=== PATIENT | female | born 1960 | race Caucasian/White ===

== ENCOUNTER 2020-02-15 12:40 | Emergency (ER) | payer OTHER ==
--- OUTSIDE RECORDS SUMMARY | 2020-02-15 12:44 | XMS REPORT | Clinical Summary ---
:1960 Author Organization [facility] Address [address] [place] [address] Care Team Providers Name Role Phone MD Andreina Primary Care Provider Allergies Active Allergy Reactions Severity Noted Date Comments No Known Drug Allergies Other (See Comments) 6 Medications Medication Sig Dispensed Refills Start Date End Date Status multivitamin with Take 1 tablet by 0 Active minerals tablet mouth daily. cholecalciferol, Take 1,000 Units 0 Active vitamin D3, (VITAMIN by mouth once a D3) 1,000 unit capsule week. predniSONE (DELTASONE) Take 10 mg by 1 09/13/2017 Active 10 mg tablet mouth every morning. leflunomide (ARAVA) 10 Take 10 mg by 0 Active MG tablet mouth every morning. omeprazole (PriLOSEC) Take 20 mg by 0 Active 20 MG capsule mouth daily. losartan (COZAAR) 50 MG TAKE 1 TABLET BY 30 tablet 3 8 Active tablet MOUTH 1 TIME DAILY. Additional Information Patient taking differently: daily, TAKE 1 TABLET BY MOUTH 1 TIME DAILY., Reported on 01/14/2020 2:06 PM hydroCHLOROthiazide (HYDRODIURIL) TAKE 1 TABLET BY 30 tablet 3 10/02/2018 Active 25 MG tablet MOUTH EVERY DAY Additional Information Patient taking differently: 25 mg oral every morning, Informant: Self, Reported on 12/07/2019 3:48 PM abaloparatide (TYMLOS) 80 mcg every evening. 0 05/22 Active (3,120 mcg/1.56 mL) pen injector DULoxetine (CYMBALTA) 60 MG TAKE 1 CAPSULE BY MOUTH 30 capsule 3 11/28/2018 Active capsule EVERY DAY Additional Information Patient taking differently: 60 mg oral daily, TAKE 1 CAPSULE BY MOUTH EVERY DAY, Informant: Self, Reported on 01/14/2020 2:06 PM inFLIXimab (REMICADE) Infuse into a 0 Active 100 mg injection venous catheter every 30 (thirty) days. magnesium citrate 0 02/14/ tive solution 8.725 gm = 150 ml, PO, ONCE, # 300 ml, 0 Refill(s) 2015 losartan (COZAAR) 100 MG Take 100 mg by 0 03/26/ Active tablet mouth daily. 2018 mirtazapine (REMERON) Take 7.5 mg by 0 03/26/ Active 7.5 MG tablet mouth nightly. 2019 clonAZEPAM (KlonoPIN) Take 0.5 mg by 0 Active 0.5 MG tablet mouth nightly as needed for anxiety or seizures. atenoloL (TENORMIN) 50 Take 50 mg by 0 Active MG tablet mouth daily. oxyCODone-acetaminophen Take 1 tablet by 90 tablet 0 01/13/ Active (PERCOCET) 10-325 mg per mouth every 2019 tabletIndications: (six) hours as chronic pain needed for moderate pain for up to 30 days .chronic pain. Max Daily Amount: 4 tablets pregabalin (LYRICA) 100 Take 1 capsule 90 capsule 2 01/13/ 04/13/ Active MG capsule (100 mg total) by 2019 2019 mouth 3 (three) times a day for 90 days. acetaminophen (TYLENOL) Take 500 mg by 0 0 12/19/ Discontinued 500 MG tablet mouth every 2019 (S top Taking at (six) hours as Disch arge) needed for mild pain. diphenhydramine-acetamin 2 tablets nightly 0 12/19/ Discontinued ophen (TYLENOL PM EXTRA as needed. 2019 (Stop Taking at STRENGTH) 25-500 mg Discharge) tablet promethazine (PHENERGAN) TK 1 T PO Q 6 H 0 11/07/ 03/24/ Discontinued 12.5 MG tablet PRF NAUSEA 2018 2018 hydroxychloroquine 0 11/04/ /12/ D iscontinued (PLAQUENIL) 200 mg 2018 2019 ( Stop Taking at tablet Discharge) HYDROcodone-acetaminophe Take 1 tablet by 120 tablet 0 11/24/ 02/22/ Discontinued (Med n (NORCO) 5-325 mg per mouth every 6 2018 201 9 List Cleanup) tablet (six) hours as needed for moderate pain for up to 90 days. pregabalin (LYRICA) 100 Take 1 capsule 90 capsule 2 12/03/ 03/02/ Discontinued MG capsule (100 mg total) by 2018 2018 ( Reorder) mouth 3 (three) times a day for 90 days. pregabalin (LYRICA) 100 Take 1 capsule 90 capsule 0 03/02/ 03/03/ Discontinued MG capsule (100 mg total) by 2018 2018 ( Reorder) mouth 3 (three) times a day for 30 days. pregabalin (LYRICA) 100 TAKE 1 CAPSULE BY 90 capsule 2 03/03/ 03/09/ Discontinued MG capsule MOUTH THREE TIMES 2018 2018 ( Reorder) DAILY mirtazapine (REMERON) 15 Take 15 mg by 0 02/26/ 0 12/06/ Discontinued MG tablet mouth nightly. 2018 2019 (Alte rnate therapy) HYDROcodone-acetaminophe Take 1 tablet by 0 03/09/ Discontinued n (NORCO) 5-325 mg per mouth 4 (four) (Reorder) tabletIndications: acute times a day .Acute pain Pain. HYDROcodone-acetaminophe Take 1 tablet by 120 tablet 0 03/09/ 04/12/ Discontinued n (NORCO) 5-325 mg per mouth 4 (four) 2018 (Stop Taking at tabletIndications: acute times a day for 90 Discharge) pain, chronic pain days .Acute Pain, chronic pain. Max Daily Amount: 4 tablets pregabalin (LYRICA) 100 Take 1 capsule 270 capsule 3 03/09/ 06/23/ Discontinued MG capsule (100 mg total) by 2018 2019 mouth 3 (three) times a day. naltrexone HCl Take by mouth 0 12/06/ D iscontinued (NALTREXONE ORAL) daily as needed. 2019 (Discontinued by another clinician) methocarbamol (ROBAXIN) Take 1 tablet (500 120 tablet 0 04/12/ 05/12/ 500 MG tablet mg total) by mouth 2018 2018 4 (four) times a day for 30 days. predniSONE (DELTASONE) Take 3 tablets (30 12 tablet 0 04/13/ 04/19/ 10 mg tablet mg total) by mouth 2018 2018 See Admin Instructions for 6 days. 3 tabs daily x 2 days, then 2 tabs daily x 2 days, then 1 tab daily docusate sodium (COLACE) 0 02/14/ 12/06 / Discontinued 100 MG capsule 100 mg = 1 cap, PO, BID, PRN Constipatio n, # 60 cap, 0 Refill(s) 2015 2019 (Therapy completed) HYDROcodone-acetaminophe 0 08/14/ 12/06 / Discontinued n (NORCO) 10-325 mg per 1 tab, PO, Q6H, 0 Refill(s) 2016 2019 (Therapy tablet completed) oxyCODone-acetaminophen TK ONE T PO Q 4 TO 0 12/06/ Discontinued (PERCOCET) 10-325 mg per 6 H PRN P 2018 2019 (Surgery) tablet gabapentin (NEURONTIN) Take 1 capsule 60 capsule 0 05/18/ 12/06/ Discontinued 300 mg capsule (300 mg total) by 2018 2019 mouth 2 (two) times a day. methocarbamol (ROBAXIN) Take 1 tablet (500 30 tablet 1 06/25/ 500 MG tablet mg total) by mouth 2018 2019 3 (three) times a day for 30 days. pregabalin (LYRICA) 100 TAKE 1 TABLET BY 90 capsule 2 10/04/ Discontinued MG capsule MOUTH THREE TIMES 2019 2019 DAILY traMADoL (ULTRAM) 50 mg Take 1 tablet (50 30 tablet 0 09/01/ tabletIndications: acute mg total) by mouth 2019 2019 pain every 8 (eight) hours as needed for moderate pain for up to 30 days .acute pain. pregabalin (LYRICA) 100 TAKE 1 CAPSULE BY 90 capsule 1 10/04/ 12/19/ Discontinued MG capsule MOUTH THREE TIMES 2019 2019 DAILY pregabalin (LYRICA) 100 Take 1 capsule 90 capsule 0 12/19/ 01/13/ Discontinued MG capsule (100 mg total) by 2019 2019 ( Reorder) mouth 3 (three) times a day for 30 days. methocarbamoL (ROBAXIN) Take 1 tablet (500 56 tablet 0 12/27/ Discontinued 500 MG tablet mg total) by mouth 2019 2019 (Reorder) 4 (four) times a day for 14 days. sennosides-docusate Take 2 tablets by 56 tablet 0 12/19/ / sodium (Senna with mouth 2 (two) 2019 2019 Docusate Sodium) 8.6-50 times a day for 14 mg per tablet days. oxyCODone-acetaminophen Take 1 tablet by 120 tablet 0 12/27/ // Discontinued (PERCOCET) 10-325 mg per mouth every 2019 2 020 (Reorder) tabletIndications: (four) hours as chronic pain needed for moderate pain for up to 30 days .chronic pain. methocarbamoL (ROBAXIN) Take 1 tablet (500 56 tablet 0 12/27/ 01/10/ 500 MG tablet mg total) by mouth 2019 2019 4 (four) times a day for 14 days. methocarbamoL (Robaxin) Take 1 tablet (500 120 tablet 0 01/13/ // 500 MG tablet mg total) by mouth 2019 2019 4 (four) times a day for 30 days. Active Problems Problem Noted Date Kyphosis 11/18/2019 Overview: Added automatically from request for inez crow [id number] Scoliosis 04/08/2019 Long-term current use of opiate analgesic 03/09/2019 Lumbar radicular pain 03/09/2019 Lumbar disc disease 03/09/2019 Back pain 11/24/2018 Myositis 11/24/2018 Multiple rib fractures 09/19/2016 Right knee pain 01/03/2016 Chronic pain syndrome 11/28/2015 Sjogren's syndrome 11/28/2015 Pain of upper abdomen 11/28/2015 Alcohol abuse 11/28/2015 Overview: She is drinking to self medicate and sleep Anemia 07/21/2015 Aneurysm of splenic artery 07/21/2015 Ankylosing spondylitis of multiple sites in spine 07/11 Anxiety disorder 07/21/2015 Overactive bladder 07/21/2015 Depression 07/21/2015 Overview: Depressive disorder - well controlled on cymbalta Endometriosis 07/21/2015 Essential hypertension 07/21/2015 Gastroesophageal reflux disease 07/21/2015 History of colitis 07/21/2015 Overview: History of colitis - related to Ankylosing Spondylitits Insomnia 07/21/2015 Non morbid obesity due to excess calories 07/21/2015 Overview: Obesity - 320 ils prior to gastric bypass Osteoarthritis 07/21/2015 Rheumatoid arthritis 07/21/2015 Encounters Date Type Specialty Care Team Description 01/14/2020 Telemedicine Physical Medicine [place], Ankylosing spondylitis of multiple sites in spine (HCC) (Primary Dx); and Rehabilitation Austin Saleh, Lumbar ra dicular pain; Rheumatoid arth ritis involving multiple sites, unspecified rheumatoid factor presence (HCC); Lumbar disc dis ease; Sjogren's syndr ome, with unspecified organ involvement (HCC); Back pain, unsp ecified back location, unspecified back pain laterality, unspecified chronicity 01/11/2020 Office Visit Orthopedic Surgery Tariq, Fusion of spine, Alphonso Lorenz unspecified spi nal region (Primary Dx) 01/11/2020 Travel 01/07/2020 Travel 12/28/2019 Telemedicine Physical Medicine [place], Lumbar dis c disease (Primary Dx); and Rehabilitation Austin Saleh, Chronic p ain syndrome; Lumbar radicula r pain; Rheumatoid arth ritis involving vertebra, unspecified rheumatoid factor presence (HCC); Sjogren's syndr ome, with unspecified organ involvement (HCC); Postural kyphos is, unspecified spinal region; Back pain, unsp ecified back location, unspecified back pain laterality, unspecified chronicity; Ankylosing spon dylitis of multiple sites in spine (HCC) 12/28/2019 Travel 12/28/2019 Orders Only Orthopedic Surgery Joshua Connors MA 12/21/2019 Telephone Cardiovascular Nidhi Lau RN 12/16/2019 Surgery General Surgery Mally Potter Po sterior Alphonso Lorenz Spinal Instrume ntation from T3-T11, SSEP/MOTORS 12/16/2019 Anesthesia Event General Surgery Carlos Grubbs MD [place], Stacy Joan, NP 12/16/2019 Hospital Encounter Neurology Tariq, Spondylol isthesis at Alphonso S. L4-L5 level 12/16/2019 Hospital Encounter Orthopedic Surgery Shahzad Potter hosis, unspecified kyphosis type, unspecified spinal region; - Alphonso SJeff Scoliosis, unsp ecified scoliosis type, unspecified spinal region 12/20/2019 12/14/2019 Lab Lab Doyle, Sagittal plane PROSPER Johns imbalance Alphonso Potter 12/14/2019 Travel 12/07/2019 Pre-Admit Testing Pre-Admission Leonidas Potter (Primary Appointment Testing Alphonso SJeff Dx) 12/07/2019 Office Visit Orthopedic Surgery Potter, Fusion of spine, unspecified spinal region (Primary Dx); Alphonso S. Other secondary kyphosis, thoracolumbar region Nat Kwon PA-C 12/07/2019 Orders Only Orthopedic Surgery Doyle, Sagittal plane PROSPER Johns imbalance (Prim vito Dx) 12/07/2019 Travel 11/23/2019 Orders Only Orthopedic Surgery Radha [place], Aneurys m of splenic artery (HCC) (Primary Dx); MA Spondylolisthes is at L4-L5 level 11/23/2019 Orders Only Orthopedic Surgery Radha [place], Spondyl olisthesis at MA L4-L5 level (Pr imary Dx) 11/18/2019 Travel 11/18/2019 Orders Only Orthopedic Surgery Joshua Connors, Kyphosis , unspecified kyphosis type, unspecified spinal region (Primary Dx); MA Scoliosis, unsp ecified scoliosis type, unspecified spinal region 11/17/2019 Travel 11/09/2019 Office Visit Orthopedic Surgery Potter, Spondylol isthesis at Alphonso S. L4-L5 level (Pr imary Dx) 11/09/2019 Travel 11/05/2019 Orders Only Cardiovascular [place], Varicose vein s of both KELSEY Terrell lower extremiti es with complications ( Primary Dx) 11/03/2019 Telephone Cardiovascular Nidhi Lau RN 10/05/2019 Refill Physical Medicine [place], and Rehabilitation Austin Saleh MD 08/03/2019 Office Visit Orthopedic Surgery Tariq, Back pain , unspecified Alphonso S. back location, unspecified jacquelin k pain laterality, unspecified chr onicity (Primary Dx) 06/23/2019 Refill Physical Medicine [place], and Rehabilitation Austin Saleh MD 06/16/2019 Refill Orthopedic Surgery Nat Kwon PA-C 05/26/2019 Orders Only Orthopedic Surgery Joshua Connors MA 05/18/2019 Orders Only Orthopedic Surgery Joshua Connors MA 04/30/2019 Office Visit Orthopedic Surgery Potter, Scoliosis (and Alphonso S. kyphoscoliosis) , idiopathic (Silvia opal Dx) 04/13/2019 Orders Only Orthopedic Surgery Nat Kwon PA-C 04/12/2019 Documentation Medical Records Provider, Unknown 04/08/2019 Anesthesia Event General Surgery Hiwot Saucedo MD Felan, Veronica Holly, ANABELL 04/08/2019 Surgery General Surgery Tariq, [id number] CAMILA Alphonso Lorenz POSTERIOR SPINA L INSTRUMENTATION AND FUSION W/ LAMINECTOMIES L 2-S1 LAMINECTOMIES W / SSEP W/ MOTORS 04/08/2019 Hospital Encounter Transplant Tariq, Scoliosis , unspecified - Alphonso Lorenz scoliosis type, 04/12/2019 unspecified spi nal region 03/30/2019 Office Visit Orthopedic Surgery Tariq, Scoliosis (and kyphoscoliosis), idiopathic (Primary Dx); Alphonso Lorenz Spondylolisthesis at L4-L5 level; Doyle, Radiculopathy o f lumbar region PROSPER Johns 03/24/2019 Pre-Admit Testing Pre-Admission Tariq, Preop exa mination Appointment Testing Alphonso Lorenz (Primary Dx) 03/23/2019 Refill Internal Medicine Mary Lyon MD 03/19/2019 Orders Only Orthopedic Surgery [place]ha [place], Scolios is, unspecified MA scoliosis type, unspecified spi nal region (Primary Dx) 03/09/2019 Office Visit Physical Medicine [place], Long-term current use of opiate analgesic (Primary Dx); and Rehabilitation Austin Saleh, Back pain , unspecified back location, unspecified back pain laterality, unspecified chronicity; Other myositis of other site; Sjogren's syndr ome, with unspecified organ involvement (HCC); Rheumatoid arth ritis involving vertebra, unspecified rheumatoid factor presence (HCC); Ankylosing spon dylitis of multiple sites in spine (HCC); Chronic pain sy ndrome; Lumbar radicula r pain; Lumbar disc dis ease 03/06/2019 Documentation Orthopedic Surgery PotterAlphonso goodrich 03/03/2019 Refill Physical Medicine [place], and Rehabilitation Austin Saleh MD 03/02/2019 Refill Physical Medicine [place], and Rehabilitation KIRA Toth 02/16/2019 Office Visit Orthopedic Surgery Potter, Back pain , unspecified Alphonso Lorenz back location, unspecified jacquelin k pain laterality, unspecified chr onicity (Primary Dx) after 2019 Immunizations Name Administration Dates Next Due FLUCELVAX QUAD PF 04/12/2019 Influenza Trivalent 04/10/2015, 04/05/2014 Pneumococcal Conjugate 13-Valent 02/15/2016 Tdap 04/05/2014 Family History Medical History Relation Name Comments Arthritis Father Hypertension Father Arthritis Mother Hypertension Mother Relation Name Status Comments Father Alive Mother Alive Social History Tobacco Use Types Packs/Day Years Used Date Never Smoker Smokeless Tobacco: Never Used Tobacco Cessation: Counseling Given: No Alcohol Use Drinks/Week oz/Week Comments Not Currently 5-7 Glasses of wine 5.0 - 7.0 5-7 per week Sex Assigned at Date Recorded Female 10/20/2018 7:28 PM CDT Job Start Date Occupation Industry Not on file Not on file Not on file Travel History Travel Start Travel End No recent travel history available. Last Filed Vital Signs Vital Sign Reading Time Taken Comments Blood Pressure 130/81 12/20/2019 11:28 AM CDT Pulse 85 12/20/2019 11:28 AM CDT Temperature 36.6 C (97.8 F) 12/20/2019 11:28 AM CDT Respiratory Rate 15 12/20/2019 11:28 AM CDT Oxygen Saturation 100% 12/20/2019 11:28 AM CDT Inhaled Oxygen Concentration - - Weight 79.6 kg (175 lb 8 oz) 12/16/2019 6:32 AM CDT Height 172.7 cm (5' 8") 12/16/2019 6:32 AM CDT Body Mass Index 26.68 12/16/2019 6:32 AM CDT Plan of Treatment Date Type Specialty Care Team Description 02/22/2020 Telemedicine Physical Medicine and [place] , Rehabilitation [address] [place], [place] [address] [phone] 02/25/2020 Office Visit Orthopedic Surgery Kadie Potter [address] [place], [place] [address] [phone] Health Maintenance Due Date Last Done Comments CERVICAL CANCER SCREENING 02/13/1981 SHINGLES VACCINES (#1) 02/13/2010 BREAST CANCER SCREENING 04/16/2016 04/16/2014 INFLUENZA VACCINE 03/10/2020 04/12/2019, 04/10/2015, 2013 COLONOSCOPY SCREENING 12/08/2022 12/08/2012 Implants Implanted Type Area Jd Edwards Device Shelf Model / Serial / Identifier Expiration Lot Date Kit Bone Graft Infuse Large Ii - [id number] Human Tissue N/A: M EDTRONIC SPINAL 10/08/2020 [id number] / Implanted: Qty: 1 on 04/08/[address] Alphonso Potter [address] [facility] Implants N/A AND BIOLOGICS / [id number] Chip Canc Allograft Leader Frzdri 30cc 1.7-10mm - [id number] - [id number] Human Tissue N/A: MUSCULOSKELETAL 02/05/2022 [id number] / Implanted: Qty: 1 on 04/08/[address] Alphonso Potter at [facility] Implants N/A TRANSPLANT [id number] / FOUNDATION LOT NA Chip Canc Allograft Leader Frzdri 30cc 1.7-10mm - [id number] - [id number] Human Tissue N/A: MUSCULOSKELETAL 02/12/2022 [id number] / Implanted: Qty: 1 on 04/08/[address] Alphonso Potter at [facility] Implants N/A TRANSPLANT [id number] / FOUNDATION LOT NA Kit Bone Graft Medium Infuse - [id number] Human Tissue N/A: MED TRONIC SPINAL 02/07/2021 [id number] / Implanted: Qty: 1 on 12/16/2019 by Alphonso Potter at [facility] Implants N/A AND BIOLOGICS / [id number] Chip Canc Allograft Leader Frzdri 30cc 1.7-10mm - [id number] - [id number] Human Tissue N/A: MUSCULOSKELETAL 04/25/2022 [id number] / Implanted: Qty: 1 on 12/16/2019 by Alphonso Potter at [facility] Implants N/A TRANSPLANT [id number] / FOUNDATION LOT N/A Chip Canc Allograft Leader Frzdri 30cc 1.7-10mm - [id number] - [id number] Human Tissue N/A: MUSCULOSKELETAL 04/25/2022 [id number] / Implanted: Qty: 1 on 12/16/2019 [address] Alphonso Potter at [facility] Implants N/A TRANSPLANT [id number] / FOUNDATION LOT N/A Reline-O Screw 6.0x45 - [id number] IPM IMPLANT N/A: NUVASIVE SPIN E [id number] / Implanted: 04/08/[address] [facility] (Quantity not on file) DEVICES N/A / LOT NA Screw Reline Poly 2s 6.5x45 - [id number] [id number] IMPLANT N/A: NUVASIV E SPINE [id number] / Implanted: 04/08/[address] [facility] (Quantity not on file) DEVICES N/A / Screw Reline Poly 2s 7.5x40 - [id number] IPM IMPLANT N/A: NUVASIV E SPINE [id number] / Implanted: 04/08/[address] [facility] (Quantity not on file) DEVICES N/A / Screw Reline Poly 2s 7.5x50 - [id number] IPM IMPLANT N/A: NUVASIV E SPINE [id number] / Implanted: 04/08/[address] [facility] (Quantity not on file) DEVICES N/A / Screw Reline Iliac 2s 7.5x70 - [id number] IPM IMPLANT N/A: NUVASI VE SPINE [id number] / Implanted: 04/08/[address] [facility] (Quantity not on file) DEVICES N/A / Screw Reline Poly 2s 6.5x50 - [id number] IPM IMPLANT N/A: NUVASIV E SPINE [id number] / Implanted: 04/08/[address] [facility] (Quantity not on file) DEVICES N/A / Conn Reline Oh M 5/5.5 - [id number] [id number] IMPLANT N/A: NUVASIVE SPI NE [id number] / Implanted: 04/08/[address] [facility] (Quantity not on file) DEVICES N/A / LOT NA Reline Open Lock Screw - [id number] [id number] IMPLANT N/A: NUVASIVE SPI NE [id number] / Implanted: 04/08/[address] [facility] (Quantity not on file) DEVICES N/A / Reline-O Screw 6.0x45 - [id number] IPM IMPLANT N/A: NUVASIVE SPIN E [id number] / Implanted: Qty: 1 on 04/08/2019 by Alphonso Potter at [facility] DEVICES N/A / LOT NA Screw Reline Poly 2s 6.5x40 - [id number] IPM IMPLANT N/A: NUVASIV E SPINE [id number] / Implanted: 04/08/[address] [facility] (Quantity not on file) DEVICES N/A / Boy Reline O Ti Strt 5.5x500 - [id number] IPM IMPLANT N/A: NUVAS JANUSZ SPINE [id number] / Implanted: Qty: 2 on 04/08/2019 by Alphonso Potter at [facility] DEVICES N/A / LOT NA Reline Power - [id number] IPM IMPLANT N/A: NUVASIVE SPINE [id number] / Implanted: 12/16/[address] [facility] (Quantity not on file) DEVICES N/A / Reline-O Screw, 6.0x35mm 2s Polyaxial - [id number] IPM IMPLANT N/A: NUVASIVE SPINE 12/15/2020 [id number] / Implanted: 12/16/[address] [facility] (Quantity not on file) DEVICES N/A / LOT NA Reline-O Screw, 6.0x35mm 2s Polyaxial - [id number] IPM IMPLANT N/A: NUVASIVE SPINE 12/16/2019 [id number] / Implanted: 12/16/[address] [facility] (Quantity not on file) DEVICES N/A / LOT NA Reline-O Screw 6.0x45 - [id number] IPM IMPLANT N/A: NUVASIVE SPIN E 12/15/2020 [id number] / Implanted: 12/16/[address] [facility] (Quantity not on file) DEVICES N/A / LOT NA Screw Reline Poly 2s 5.5x30 - [id number] IPM IMPLANT N/A: NUVASI VE SPINE [id number] / Implanted: 12/16/[address] [facility] (Quantity not on file) DEVICES N/A / Screw Reline Poly 2s 5.5x35 - [id number] IPM IMPLANT N/A: NUVASI VE SPINE [id number] / Implanted: 12/16/[address] [facility] (Quantity not on file) DEVICES N/A / Screw Reline Poly 2s 5.5x40 - [id number] IPM IMPLANT N/A: NUVASI VE SPINE [id number] / Implanted: 12/16/[address] [facility] (Quantity not on file) DEVICES N/A / Screw Reline Poly 2s 5.5x45 - [id number] IPM IMPLANT N/A: NUVASI VE SPINE [id number] / Implanted: 12/16/[address] [facility] (Quantity not on file) DEVICES N/A / Conn Reline Inln 2h 5/5.5 - [id number] IPM IMPLANT N/A: NUVASIV E SPINE 12/15/2020 [id number] / Implanted: 12/16/[address] [facility] (Quantity not on file) DEVICES N/A / LOT NA Reline Open Lock Screw - [id number] IPM IMPLANT N/A: NUVASIVE SPI NE [id number] / Implanted: 12/16/[address] [facility] (Quantity not on file) DEVICES N/A / Boy Reline O Ti Strt 5.5x500 - [id number] IPM IMPLANT N/A: NUV ASIVE SPINE 12/15/2020 [id number] / Implanted: 12/16/[address] [facility] (Quantity not on file) DEVICES N/A / LOT NA 6.0 Mm X 35 Mm Screw Ortho - N/A: NUVASIVE[employer]. [id number] / Implanted: Qty: 2 on 04/08/2019 by Alphonso Potter at [facility] Spinal N/A / Implant LOT NA 6.0 Mm X 40 Mm Screw Ortho - N/A: NUVASIVE[employer] INC. [id number] / Implanted: Qty: 3 on 04/08/2019 by Alphonso Potter at [facility] Spinal N/A / Implant LOT NA Putty Dbm Dbx 1cc - [id number] Orthopedic N/A: MUSCULOSKELETAL 05/13/2019 [id number] / Implanted: 09/20/[address] [facility] (Quantity not on file) Tra davion N/A TRANSPLANT [id number] / Implants FOUNDATION [id number] 11cm Sonopet Iq Lawrence [employer] N/A: 06/2020 [id number] / Implanted: Qty: 1 on 04/08/2019 by Alphonso Potter at [facility] Implements N/A / [id number] Closed Tulip Lock Screw Poste NUVASIVE SPINE [id number] / Implanted: Qty: 4 on 12/16/2019 by Alphonso Potter at [facility] rior: / N/A Procedures Procedure Name Priority Date/Time Associated Diagnosis Comme nts XR SPINE SCOLIOSIS Routine 01/11/2020 2:56 Fusion of spine, R esults for 2-3 VIEWS PM CDT unspecified spinal this proc edure region are in the results section. HC COMPLETE BLD COUNT Routine 12/20/2019 4:50 Re sults for W/AUTO DIFF AM CDT this procedure are in the results section. HC COMPLETE BLD COUNT Routine 12/19/2019 8:47 Re sults for W/AUTO DIFF AM CDT this procedure are in the results section. XR CHEST 1 VW STAT 12/18/2019 6:20 Results fo r PORTABLE PM CDT this procedure are in the results section. CBC HEMOGRAM Routine 12/18/2019 4:37 Results for AM CDT this procedure are in the results section. CBC HEMOGRAM Routine 12/17/2019 3:35 Results for AM CDT this procedure are in the results section. INTRAOPERATIVE Routine 12/16/2019 2:37 Spondylolisthesis at MONITORING PM CDT L4-L5 level SURGICAL PATHOLOGY Routine 12/16/2019 1:15 Resul ts for REQUEST PM CDT this procedure are in the results section. OR FL > 1 HOUR Routine 12/16/2019 11:45 Results f or AM CDT this procedure are in the results section. TRANSFUSE RED BLOOD Routine 12/16/2019 11:03 CELLS AM CDT ARTERIAL LINE Routine 12/16/2019 10:46 Results fo r AM CDT this procedure are in the results section. POTASSIUM, SYRINGE STAT 12/16/2019 10:40 Resul ts for AM CDT this procedure are in the results section. HEMOGLOBIN, SYRINGE STAT 12/16/2019 10:40 Resu lts for AM CDT this procedure are in the results section. LACTIC ACID, SYRINGE STAT 12/16/2019 10:05 Res ults for AM CDT this procedure are in the results section. IONIZED CALCIUM, STAT 12/16/2019 10:05 Results for ARTERIAL AM CDT this procedure are in the results section. MAGNESIUM LEVEL STAT 12/16/2019 10:05 Results for AM CDT this procedure are in the results section. GLUCOSE LEVEL, STAT 12/16/2019 10:05 Results f or SYRINGE AM CDT this procedure are in the results section. POTASSIUM, SYRINGE STAT 12/16/2019 10:05 Resul ts for AM CDT this procedure are in the results section. HEMOGLOBIN, SYRINGE STAT 12/16/2019 10:05 Resu lts for AM CDT this procedure are in the results section. SODIUM LEVEL, SYRINGE STAT 12/16/2019 10:05 Re sults for AM CDT this procedure are in the results section. ARTERIAL BLOOD GAS, STAT 12/16/2019 10:05 Resu lts for CORRECTED AM CDT this procedure are in the results section. KS AN ELECTIVE Routine 12/16/2019 8:55 Results f or ENDOTRACHEAL AIRWAY AM CDT this pro cedure are in the results section. FUSION, SPINE, 12/16/2019 7:56 Kyphosis, unspecified THORACIC, USING AM CDT kyphosis type, POSTERIOR TECHNIQUE unspecified spinal region Scoliosis, unspecified scoliosis type, unspecified spinal region Case Notes EST 5HRS, O-ARM, S8, NAVIGAT ED DRILL, SSEP/MOTORS, ALEX OSI "OLD STYLE" Special Needs EST 5HRS, PRONE POSITION, O- Arm, S8, Navigated Drill; SSEP / Motors; Cell Saver; [place]; T&C 4 units; Med Hemov ac; Alex OSI "Old Style, "60 Allo.Can.Gran; BMP; Existing Instrumentation T11 -S1/pelvis: Nuvasive Reline COVID-19 QUALITATIVE Routine 12/14/2019 1:53 Sagittal plane i mbalance Results for PCR PM CDT this procedure are in the results section. PREPARE RBC Routine 12/07/2019 4:16 Results for PM CDT this procedure are in the results section. TYPE AND SCREEN Routine 12/07/2019 4:16 Preop testing Results for PM CDT this procedure are in the results section. XR SPINE SCOLIOSIS Routine 11/09/2019 1:18 Spondylolisthesis at Results for 2-3 VIEWS PM CDT L4-L5 level this procedure are in the results section. XR SPINE SCOLIOSIS Routine 08/03/2019 1:47 Back pain, unspeci fied Results for 2-3 VIEWS PM HOSPITAL AIDE back location, this procedur e unspecified back pain are in the laterality, unspecified resu lts chronicity section. XR SPINE SCOLIOSIS Routine 04/30/2019 2:05 Scoliosis (and Res ults for 2-3 VIEWS PM HOSPITAL AIDE kyphoscoliosis), this proced ure idiopathic are in the results section. HC COMPLETE BLD COUNT Routine 04/12/2019 5:40 Re sults for W/AUTO DIFF AM HOSPITAL AIDE this procedure are in the results section. HC COMPLETE BLD COUNT Routine 04/11/2019 9:10 Re sults for W/AUTO DIFF AM CDT this procedure are in the results section. COPPER LEVEL, SERUM Routine 04/11/2019 5:30 Resu lts for AM CDT this procedure are in the results section. ZINC LEVEL, SERUM Routine 04/11/2019 5:30 Result s for AM CDT this procedure are in the results section. VITAMIN D 25 HYDROXY Routine 04/11/2019 5:00 Res ults for LEVEL AM CDT this procedure are in the results section. IRON LEVEL Routine 04/11/2019 4:00 Results for AM CDT this procedure are in the results section. VITAMIN B12 LEVEL Routine 04/11/2019 4:00 Result s for AM CDT this procedure are in the results section. FOLATE LEVEL Routine 04/11/2019 4:00 Results for AM CDT this procedure are in the results section. CBC HEMOGRAM Routine 04/10/2019 5:00 Results for AM CDT this procedure are in the results section. CBC HEMOGRAM Routine 04/09/2019 5:30 Results for AM CDT this procedure are in the results section. INTRAOPERATIVE Routine 04/08/2019 1:27 Scoliosis, unspecified MONITORING PM CDT scoliosis type, unspecified spinal region OR [place] > 1 HOUR Routine 04/08/2019 1:00 Results f or PM CDT this procedure are in the results section. XR LUMBAR SPINE 1 VW Routine 04/08/2019 12:30 Res ults for PM CDT this procedure are in the results section. KS AN ELECTIVE Routine 04/08/2019 9:37 Results f or ENDOTRACHEAL AIRWAY AM CDT this pro cedure are in the results section. GLUCOSE LEVEL, Routine 04/08/2019 9:18 Results f or SYRINGE AM CDT this procedure are in the results section. MAGNESIUM LEVEL Routine 04/08/2019 9:18 Results for AM CDT this procedure are in the results section. LACTIC ACID, SYRINGE Routine 04/08/2019 9:18 Res ults for AM CDT this procedure are in the results section. IONIZED CALCIUM, Routine 04/08/2019 9:18 Results for ARTERIAL AM CDT this procedure are in the results section. HEMOGLOBIN, SYRINGE Routine 04/08/2019 9:18 Resu lts for AM CDT this procedure are in the results section. SODIUM LEVEL, SYRINGE Routine 04/08/2019 9:18 Re sults for AM CDT this procedure are in the results section. POTASSIUM, SYRINGE Routine 04/08/2019 9:18 Resul ts for AM CDT this procedure are in the results section. ARTERIAL BLOOD GAS, Routine 04/08/2019 9:18 Resu lts for CORRECTED AM CDT this procedure are in the results section. FUSION, SPINE, 04/08/2019 8:00 Scoliosis LUMBAR, POSTERIOR AM CDT APPROACH Case Notes EST 5 HRS, PRONE POSITION, L ARGE C-ARM, SSEP W/ MOTORS, CELL SAVER, MARKUS, MED HEMOVAC, ALEX OSI "OLD ST YLE", 60CC ALLOGRAFT CANCELLOUS GRANULES, BMP, NUVASIVE, NUVASIVE RELINE Special Needs EST 5 HRS, PRONE POSITION, L ARGE C-ARM, SSEP W/ MOTORS, CELL SAVER, MARKUS, MED HEMOVAC, ALEX OSI "OLD ST YLE", 60CC ALLOGRAFT CANCELLOUS GRANULES, BMP, NUVASIVE, NUVASIVE RELINE PAIN MANAGEMENT BASE Routine 03/27/2019 4:05 Long-term curren t Results for this PROFILE W/ PM CDT use of opiate procedure are in CONFIRMATION, URINE analgesic the resu lts section. GRAM STAIN Routine 03/24/2019 4:35 Results for this PM CDT procedure are i n the results section. URINE CULTURE Routine 03/24/2019 4:35 Results fo r this PM CDT procedure are i n the results section. URINALYSIS SCREEN AND Routine 03/24/2019 2:15 Preop examinati on Results for this MICROSCOPY, WITH REFLEX PM CDT proc edure are in TO CULTURE the results section. ECG PRE/POST OP Routine 03/24/2019 1:52 Preop examination Res ults for this PM CDT procedure are i n the results section. ESTIMATED GFR Routine 03/24/2019 1:45 Results fo r this PM CDT procedure are i n the results section. COMPREHENSIVE METABOLIC Routine 03/24/2019 1:45 Preop examina tion Results for this PANEL PM CDT procedure are i n the results section. PROTHROMBIN TIME WITH Routine 03/24/2019 1:45 Preop examinati on Results for this INR PM CDT procedure are i n the results section. PARTIAL THROMBOPLASTIN Routine 03/24/2019 1:45 Preop examinat ion Results for this TIME (PTT) PM CDT procedure are i n the results section. TYPE AND SCREEN Routine 03/24/2019 1:45 Preop examination Res ults for this PM CDT procedure are i n the results section. CBC HEMOGRAM Routine 03/24/2019 1:45 Preop examination Result s for this PM CDT procedure are i n the results section. XR SPINE SCOLIOSIS 2-3 Routine 02/16/2019 3:20 Back pain, R esults for this VIEWS PM CDT unspecified back procedure a re in location, the results unspecified back section. pain laterality, unspecified chronicity after 2019 Results XR Spine Scoliosos 2-3 Views (01/11/2020 2:56 PM CDT)Only the most recent of5 resultswithin the time period is included. Specimen Narrative Performed At This result has an attachment that is no t available. PA and lateral standing x-ray of the entire spine were done. They show LOTTIE CUNNINGHAM she now has instrumentation in place up to T3. Her k yphosis looks a lot better. It is now 25 degrees from T10-L2. Performing Organization Address City/State/Zipcode Phone Number LOTTIE CUNNINGHAM [address] [place] [address] CBC with platelet and differential (12/20/2019 4:50 AM CDT)Only the most recent of4 resultswithin the time period is included. WBC 10.11 4.50 - 11.00 [facility] k/uL HOSPITAL RBC 3.36 (L) 4.20 - 5.50 [facility] m/uL [facility] HGB 8.9 (L) 12.0 - 16.0 [facility] g/dL [facility] HCT 28.5 (L) 37.0 - 47.0 % [facility] MCV 84.8 82.0 - 100.0 [facility] MCH 26.5 (L) 27.0 - 34.0 pg [facility] MCHC 31.2 31.0 - 37.0 [facility] RDW - SD 51.9 37.0 - 55.0 fL [facility] MPV 9.8 8.8 - 13.2 fL [facility] Platelet count 223 150 - 400 k/uL [facility] Nucleated RBC 0.00 /100 WBC [facility] Neutrophils 67.3 39.0 - 69.0 % [facility] Lymphocytes 18.9 (L) 25.0 - 45.0 % [facility] Monocytes 11.1 (H) 0.0 - 10.0 % [facility] Eosinophils 1.9 0.0 - 5.0 % [facility] Basophils 0.3 0.0 - 1.0 % [facility] Immature granulocytes 0.5Comment: 0.0 - 1.0 % [facility] "Immature HOSPITAL granulocytes" (promyelocytes , myelocytes, metamyelocytes ) Specimen Blood Performing Organization Address City/[facility] Phone Number [facility] DEPARTMENT OF PATHOLOGY AND [address] [place], [place] [address] GENOMIC MEDICINE [facility] [address] [place] [address] XR Chest 1 Vw Portable (12/18/2019 6:20 PM CDT) Specimen Narrative Performed At EXAMINATION: XR CHEST 1 VW PORTABLE RADIANT CLINICAL HISTORY: low o2 COMPARISON: 09/19/2016 IMPRESSION: Lungs and pleural surfaces are clear. The heart is normal in size. Normal pulm onary vascularity. Spinal rods and cervical fusion hardware are seen. [id number] Procedure Note Hm Interface, Radiology Results Incoming - 12/18/2019 7:50 PM CDT EXAMINATION: XR CHEST 1 VW PORTABLE CLINICAL HISTORY: low o2 COMPARISON: 09/19/2016 IMPRESSION: Lungs and pleural surfaces are clear. The heart is normal in size. Normal pulm onary vascularity. Spinal rods and cervical fusion hardware are seen. [id number] Performing Organization Address [facility] Phone Number [facility] [address] [place] [address] CBC hemogram (12/18/2019 4:37 AM CDT)Only the most recent of5 resultswithin the time period is included. Pathologist Sig nature WBC 12.72 (H) 4.50 - 11.00 k/uL [facility] RBC 3.28 (L) 4.20 - 5.50 m/uL [facility] HGB 8.6 (L) 12.0 - 16.0 g/dL [facility] HCT 27.7 (L) 37.0 - 47.0 % [facility] MCV 84.5 82.0 - 100.0 fL [facility] MCH 26.2 (L) 27.0 - 34.0 pg [facility] MCHC 31.0 31.0 - 37.0 g/dL [facility] RDW - SD 51.8 37.0 - 55.0 [facility] MPV 9.9 8.8 - 13.2 [facility] Platelet count 188 150 - 400 k/uL [facility] Nucleated RBC 0.20 /100 WBC [facility] Specimen Blood Performing Organization Address City/State/Zipcode Phone Number [facility] DEPARTMENT OF PATHOLOGY AND [address] [place], [place] [address] GENOMIC MEDICINE [facility] [address] [place] [address] Intraoperative monitoring (12/16/2019 2:37 PM CDT) Narrative Performed At This result has an attachment that is no t available. Surgical pathology request (12/16/2019 1:15 PM CDT) [facility] DEPARTMENT OF PATHOLOGY AND GENOMIC MEDICINE Surgical pathology See link below [facility] DEPARTMENT OF report for PDF Lab PATHOLOGY AND Report GENOMIC MEDICINE Result status This is Final [facility] DEPARTMENT OF Report for PATHOLOGY AND [id number] GENOMIC MEDICINE Specimen Performing Organization Address City/[facility] Phone Number [facility] DEPARTMENT OF PATHOLOGY AND [address] [place], [place] [address] GENOMIC MEDICINE [place] > I Hour (12/16/2019 11:45 AM CDT)Only the most recent of2 results within the time period is included. Specimen Narrative Performed At EXAMINATION: OR FL > 1 HOUR RADIANT C-arm fluoroscopy was requested in OR. Location: [facility] OR 19 Procedure: posterior spinal fusion Start: 829 End: 1145 Fluoro Time: 3.9SEC mGy: 57.14 Tech: JV SCANS: 2 IMPRESSION: Intraoperative fluoroscopic images. Radiologist was no t present during the examination. Separate operative report will be issued by the physic lizeth performing the procedure. [id number] Procedure Note Interface, Radiology Results Incoming - 12/16/2019 9:19 PM CDT EXAMINATION: OR FL > 1 HOUR C-arm fluoroscopy was requested in OR. Location: [facility] OR 19 Procedure: posterior spinal fusion Start: 829 End: 1145 Fluoro Time: 3.9SEC mGy: 57.14 Tech: JV SCANS: 2 IMPRESSION: Intraoperative fluoroscopic images. Radi ologist was not present during the examination. Separate operative report will be issued by the physician performing the procedure. [id number] Performing Organization Address City/[facility]/Zipcode Phone Number MARISA [address] [place] [address] Transfuse RBC (12/16/2019 11:03 AM CDT)Arterial line (12/16/2019 10:46 AM CDT) Narrative Performed At Dionna Flores 12/16/2019 10:47 AM Arterial line Performed by: Dionna Flores Authorized by: Carlos Grubbs MD Patient Location: OR End Time: 12/16/2019 8:10 AM Staff: Anesthesiologist: Carlos Grubbs MD Performed by: Anesthesiologist Pre-procedure: patient identified, IV ch ecked, site and side verified, risks and benefits discussed, procedure verified, surgical consent complete, patient position confirmed, mo nitors and equipment checked, pre-op evaluation complete and timeout p erformed prior to procedure MSBT: antiseptic used, all elements of maximal sterile barrier technique followed, hand hygiene performed, cap/go wn used by other personnel and solutions labeled Indications: Indications: hemodynamic monitoring Anesthesia: Anesthesia: General Procedure Details: Arterial Line placement: Placed pos t induction Line placement site: Radial Line placement side: Right Arterial line gauge: 20 G Number of attempts: 1 Ultrasound guidance used: No Post-procedure: Post-procedure: Sterile dressing ap plied Post procedure circulation, sensation , movement: Normal Patient tolerance: Patient tolerate d the procedure well with no immediate complications Potassium, syringe (12/16/2019 10:40 AM CDT)Only the most recent of3 results within the time period is included. Pathologist Sig Deltagen Potassium, syringe 3.0 (LL) 3.5 - 5.0 mEq/L [facility] Specimen Blood Narrative Performed At _[place]____ results called to and read back by [facility] DEPARTM ENT OF PATHOLOGY AND GENOMIC RN KAI BUTT/LIZ MEDICINE at __ 12/16/2019 10:56 by __AD. Performing Organization Address City/State/Zipcode Phone Number [facility] DEPARTMENT OF PATHOLOGY AND [address] [place], [place] [address] [address] [address] Hemoglobin, syringe (12/16/2019 10:40 AM CDT)Only the most recent of3 results within the time period is included. Pathologist Sig nature Hemoglobin, syringe 7.7 (L) 12.0 - 16.0 g/dL [facility] Specimen Blood Narrative Performed At _[place]____ results called to and read back by [facility] DEPARTM ENT OF PATHOLOGY AND GENOMIC RN KAI BUTT/LIZ MEDICINE at __ 12/16/2019 10:56 by __AD. Performing Organization Address City/[facility]/Zipcode Phone Number [facility] DEPARTMENT OF PATHOLOGY AND [address] [place] [phone] Sodium level, syringe (12/16/2019 10:05 AM CDT)Only the most recent of2 results within the time period is included. Pathologist Sig nature Sodium, syringe 142 135 - 148 mEq/L [facility] Blood Performing Organization Address [facility] Phone Number [facility] DEPARTMENT OF PATHOLOGY AND [address] [place] [phone] Lactic acid, syringe (12/16/2019 10:05 AM CDT)Only the most recent of2 results within the time period is included. Pathologist Sig nature Lactic acid, syringe 1.8 0.5 - 2.2 mmol/L [facility] Specimen Blood Performing Organization Address [facility] Phone Number [facility] DEPARTMENT OF PATHOLOGY AND [address] [place] [address] [place] [phone] Ionized calcium, arterial (12/16/2019 10:05 AM CDT)Only the most recent of2 resultswithin the time period is included. Pathologist Sig nature Ionized calcium, 1.00 (L) 1.11 - 1.32 [facility] arterial mmol/L [facility] Specimen Blood Performing Organization Address City/[facility]/Zipcode Phone Number [facility] DEPARTMENT OF PATHOLOGY AND [address] [place] [phone] Glucose level, syringe (12/16/2019 10:05 AM CDT)Only the most recent of2 results within the time period is included. Pathologist Sig nature Glucose, syringe 82 65 - 99 mg/dL [facility] MIKAYLA Specimen Blood Performing Organization Address City/[facility]/Zipcode Phone Number [facility] DEPARTMENT OF PATHOLOGY AND [address] [place] [phone] Arterial blood gas, corrected (12/16/2019 10:05 AM CDT)Only the most recent of2 resultswithin the time period is included. Pathologist Sig nature pH, arterial 7.43 7.35 - 7.45 [facility] pCO2, arterial 35 35 - 45 mmHg [facility] pO2, arterial 261 (H) 80 - 90 mmHg [facility] Temperature, Celsius 35.5 Degrees C [facility] O2 saturation, 99 95 - 100 % [facility] arterial HOSPITAL pH, arterial 7.45 [facility] pCO2, arterial 33 mmHg [facility] pO2, arterial 256 mmHg [facility] Base excess, arterial -1 -2 - 2 mEq/L [facility] Specimen Blood Performing Organization Address City/[facility] Phone Number [facility] DEPARTMENT OF PATHOLOGY AND [address] [place] [phone] Magnesium level (12/16/2019 10:05 AM CDT)Only the most recent of2 resultswithin the time period is included. Pathologist Sig nature Magnesium 1.9 1.6 - 2.6 mg/dL [facility] L Specimen Narrative Performed At _[place]____ results called to and read back by [facility] DEPARTM ENT OF PATHOLOGY AND GENOMIC KELSEY BUTT/LIZ MEDICINE at __ 12/16/2019 10:20 by AD__. Performing Organization Address City/[facility]/Zipcode Phone Number [facility] DEPARTMENT OF PATHOLOGY AND [address] [place] [phone] Airway (12/16/2019 8:55 AM CDT) Narrative Performed At Dionna Flores 12/16/2019 8:56 AM Airway Date/Time: 12/16/2019 8:06 AM Performed by: Dionna Flores Authorized by: Carlos [place]ubbs MD Location: OR Urgency: Elective Difficult Airway: No Preoxygenated with 100% O2: Yes C-spine Precautions Maintained Throughou t: Yes Mask Ventilation: Not attempted Final Airway Type: Endotracheal airway Final Endotracheal Airway: ETT Cuffed: Yes Technique Used: Direct laryngoscopy Devices/Methods Used in Placement: Int ubating stylet Insertion Site: Oral Blade Type: Manasa Laryngoscope Blade/Videolaryngoscope Phong de Size: 3 ETT Size (mm): 7.0 Cuff at minimum occlusion pressure: Yes Measured from: Lips ETT to Lips (cm): 21 Placement Verified by: CO2 detection, di rect visualization and equal breath sounds Laryngoscopic view: Grade I - full vie w of glottis Rapid Sequence Induction (RSI): Yes Number of Attempts at Approach: 1 Atraumatic intubation; mouth, teeth and lips unchange d. COVID-19 qualitative PCR (12/14/2019 1:53 PM CDT) Interpretation Negative results do not prec lude 2019-nCoV infection and should not be used as the sole basis for treatment or other patient management decisions. Negative results must be combined with clinical observations, patient history, and epidemiological [facility] information. [facility] COVID-19 qualitative Not-Detected Not-Detecte [facility] PCR result d [facility] See link below for [facility] PCR PDF Lab ORTHODOX ReportComment: Case HOSPITAL Number: [id number] Specimen Nasopharyngeal swab Performing Organization Address City/State/Zipcode Phone Number [facility] DEPARTMENT OF PATHOLOGY AND [address] [place] [phone] GEN[address] [address] [facility] Prepare RBC (12/07/2019 4:16 PM CDT) Product name Red Blood Cells [place] [address], Leukored [facility] Unit number [id number] [facility] Product code [id number] [facility] Dispense status Returned to BB not KILLEEN transfused [facility] Blood expiration date [facility] Blood type code 5100 [facility] Blood type O POSITIVE [facility] Compatibility Compatible [facility] Product name Red Blood Cells [place] [address], Leukored [facility] Unit number [id number] [facility] Product code [id number] [facility] Dispense status Transfused [facility] Blood expiration date [id number] [facility] Blood type [facility] 5100 [facility] Blood type O POSITIVE [facility] Compatibility Compatible [facility] Specimen Performing Organization Address City/[facility] Phone Number [facility] DEPARTMENT OF PATHOLOGY AND [address] [place] [phone] GENOMIC [place] [id number] [place] [address] Type and screen (12/07/2019 4:16 PM CDT)Only the most recent of2 resultswithin the time period is included. Pathologist Sig nature ABO grouping O [facility] Rh type POS [facility] Antibody screen (gel) NEG [facility] Specimen Blood Performing Organization Address [facility] Phone Number [facility] DEPARTMENT OF PATHOLOGY AND [address] [place] [address] [id number] [place] [address] Copper level, serum (04/11/2019 5:30 AM CDT) Copper 106.2 80.0 - 155.0 [facility] Comment: ug/dL INTERPRETIVE INFORMATION: Copper, Serum or Plasma Elevated results may be due to skin or collection-rela lupe contamination, including the use of a noncertified met al-free collection/transport tube. If contamination concerns e xist due to elevated levels of serum/plasma copper, confirmation w ith a second specimen collected in a certified metal-free tube is r ecommended. Serum copper may be elevated with infection, inflammat ion, stress, and copper supplementation. In females, elevated coppe r may also be caused by oral contraceptives and (concen trations may be elevated up to 3 times normal during the third trim pavel). Test developed and characteristics determined by [facility]. See Compliance Statement B: [email or web address]/ CS Performed by [facility], [address] [place], [place] [id number] [email or web address], Ciaran Castro MD, Lab. Director Specimen Blood Performing Organization Address [facility]/Zipcode Phone Number [facility] [address] [place] [address] [facility] [address] [place] [address] Zinc level, serum (04/11/2019 5:30 AM CDT) Zinc 49.3 (L) 60.0 - 120.0 [facility] Comment: ug/dL INTERPRETIVE INFORMATION: Zinc, Serum or Plasma Elevated results may be due to skin or collection-rela lupe contamination, including the use of a noncertified met al-free collection/transport tube. If contamination concerns e xist due to elevated levels of serum/plasma zinc, confirmation wit h a second specimen collected in a certified metal-free tube is r ecommended. Circulating zinc concentrations are dependent on album in status and are depressed with malnutrition. Zinc may also b e lowered with infection, inflammation, stress, oral contracepti ves, and . Zinc may be elevated with zinc supplement ation or fasting. Elevated zinc concentrations may interfere with copper absorption. Test developed and characteristics determined by [facility]. See Compliance Statement B: [employer]/ CS Performed by [facility], [address] [place] [id number] [email or web address], Ciaran Castro MD, Lab. Director Specimen Blood Performing Organization Address City/State/Zipcode Phone Number [facility] [address] [place] [address] [facility] [address] [place] [address] Vitamin D 25 hydroxy level (04/11/2019 5:00 AM CDT) Vitamin D, 27.3 (L) 30.0 - 150.0 [facility] 25-hydroxy Comment: ng/mL HOSPITAL This assay reports the sum of 25-hydroxy vitamin D3 an d 25-hydroxy vitamin D2. Reference range: 0-17 years: Deficiency: less than 20ng/mL Optimum level: greater than or equal to 20 ng/mL. 18 years and older: Deficiency: less than 20ng/mL Insufficiency: 20-29 ng/mL Optimum Level: 30-80 ng/mL The assay reportable range is 3.4 155.9 ng/mL. Level s higher than 150 ng/mL may be associated with toxicity. If toxicity is clinically suspected and the reported r esult is >155.9 ng/mL,contact lab for alternative methods to obtain a definitive level. If separate quantitation of 25-hydroxy vitamin D3 and 25-hydroxy vitamin D2 is needed, please contact lab for alternative methods. Specimen Blood Performing Organization Address City/[facility]/Zipcode Phone Number [facility] DEPARTMENT OF PATHOLOGY AND [address] [place] [phone] [place] [phone] Iron level (04/11/2019 4:00 AM CDT) Pathologist Sig nature Iron level 27 (L) 37 - 145 ug/dL [facility] Specimen Plasma specimen Performing Organization Address City/[facility] Phone Number [facility] DEPARTMENT OF PATHOLOGY AND [address] [place] [phone] [place] [address] Folate level (04/11/2019 4:00 AM CDT) Pathologist Sig nature Folate 10.8 4.8 - 24.2 ng/mL [facility] Specimen Serum Performing Organization Address [facility] Phone Number [facility] DEPARTMENT OF PATHOLOGY AND [address] [place] [phone] [place] [address] Vitamin B12 level (04/11/2019 4:00 AM CDT) Vitamin B12 371 211 - 946 [facility] Comment: pg/mL HOSPITAL Significant overlap exists between normal and deficien cy states. However, most patients with deficiencies will have Ser um B12 <200 pg/mL. Specimen Serum Performing Organization Address [facility] Phone Number [facility] DEPARTMENT OF PATHOLOGY AND [address] [place] [phone] Intraoperative monitoring (04/08/2019 1:27 PM CDT) Narrative Performed At This result has an attachment that is no t available. XR Lumbar Spine 1 Vw (04/08/2019 12:30 PM CDT) Specimen Narrative Performed At EXAMINATION: XR LUMBAR SPINE 1 VW [facility] CLINICAL HISTORY: Posterior spinal fusio n COMPARISON: Scoliosis study 02/16/2019 IMPRESSION: Posterior spinal fusion extending from the lower thora cic spine to the pelvis with bilateral rods and screws. H ardware appears intact. Improved alignment with partial reduction of the right convex lumbar scoliosis compared with 02/16/2019. [id number] Procedure Note Hm Interface, Radiology Results Incoming - 04/08/2019 1:17 PM CDT EXAMINATION: XR LUMBAR SPINE 1 VW CLINICAL HISTORY: Posterior spinal fusio n COMPARISON: Scoliosis study 02/16/2019 IMPRESSION: Posterior spinal fusion extending from t he lower thoracic spine to the pelvis with bilateral rods and screws. Hardware appears intact. Improved alignment with partial reductio n of the right convex lumbar scoliosis compared with 02/16/2019. [id number] Performing Organization Address City/State/Zipcode Phone Number [facility] [address] [place] [address] Airway (04/08/2019 9:37 AM CDT) Narrative Performed At Hiwot Saucedo MD 2018 9:38 AM Airway Date/Time: 04/08/2019 9:37 AM Performed by: Hiwot Saucedo M D Authorized by: Hiwot Saucedo MD Location: [place] Urgency: Elective Difficult Airway: No Preoxygenated with 100% O2: Yes C-spine Precautions Maintained Throughou t: Yes Mask Ventilation: Easy mask Final Airway Type: Endotracheal airway Final Endotracheal Airway: ETT Technique Used: Direct laryngoscopy Blade Type: Manasa Laryngoscope Blade/Videolaryngoscope Phong de Size: 3 ETT Size (mm): 7.0 Placement Verified by: CO2 detection and direct visualization Laryngoscopic view: Grade IIa - partia l view of glottis Rapid Sequence Induction (RSI): No Modified RSI: Yes Number of Attempts at Approach: 1 pain management base profile w/confirmation, urine (03/27/2019 4:05 PM CDT) Creatinine 30.9 > or = 20.0 [facility] mg/dL [facility] II pH 5.9 4.5 - 9.0 [facility] Oxidant NEGATIVE <200 mcg/mL [facility] Benzodiazepines NEGATIVE <100 ng/mL [facility] benzodiazepines [facility] Cocaine (metab.) NEGATIVE <150 ng/mL [facility] cocaine [facility] metab [facility] Opiates POSITIVE (A) <100 ng/mL [facility] Codeine NEGATIVEComment: See <50 ng/mL [facility] Note 1 [facility] codeine [facility] Hydrocodone 388 (H)Comment: See <50 ng/mL [facility] Note 1 [facility] hydrocodone INCONSISTENT (A) [facility] Hydromorphone 56 (H)Comment: See <50 ng/mL [facility] Note 1 [facility] INCONSISTENT [facility] hydromorphone (A)Comment: See Note [facility] 2 ING II Morphine NEGATIVEComment: See <50 ng/mL [facility] Note 1 [facility] II [facility] morphine [facility] II Norhydrocodone 694 (H)Comment: See <50 ng/mL [facility] Note 1 [facility] II Medmatch See Note (A)Comment: [facility] norhydrocodone See Note 3 [facility] II Oxycodone NEGATIVE <100 ng/mL [facility] II [facility] oxycodone [facility] II Comment [facility] Comment: [facility] See Note 4 ING II Note 1 This test was developed and its analytical performance characteristics have been determined by [facility]. It has not been cleared or approved by [facility] FDA. This assay has been validated pursuant to the CLI A regulations and is used for clinical purposes. Note 2 Hydromorphone is a metabolite of hydrocodone as well as a prescribed drug. Note 3 Norhydrocodone is a metabolite of Hydrocodone. Note 4 This drug testing is for medical treatment only. Analysis was performed as non-forensic testing and these results should be used only by healthcare providers to render diagnosis or treatment, or to monitor progress of medical conditions. medMATCH comments are: - present when drug test results may be the result of metabolism of one or more drugs or when results ar e inconsistent with prescribed medication(s) listed. - may be blank when drug results are consistent with prescribed medication(s) listed. For assistance with interpreting these drug results, please contact a [facility] Toxicology Specialist: [phone] ( [phone] M-F, 8am-6pm EST. Specimen Narrative Performed At FASTING:NO [facility] FASTING: NO Resulting Agency Comment Performing Organization Information: Site ID: [id number] Name: [facility] Address: [address] [place] [id number] Director: Dr. Rajat orlando Performing Organization Address City/[facility]/Zipcode Phone Number [facility] [phone] Gram stain (03/24/2019 4:35 PM CDT) Gram stain result Rare WBC's [facility] No organisms seen HOSPITAL Comment: Specimen Information Specimen Source: Urine Specimen Site: Clean catch Specimen Urine Performing Organization Address City/[facility] Phone Number [facility] DEPARTMENT OF PATHOLOGY AND [address] [place] [address] [phone] [address] Urine culture (03/24/2019 4:35 PM CDT) Urine culture Mixed evin <=10-3 col/cc [facility] isolate Comment: HOSPITAL Specimen Information Specimen Source: Urine Specimen Site: Clean catch Specimen Urine Performing Organization Address [facility] Phone Number [facility] DEPARTMENT OF PATHOLOGY AND [address] [place] [address] [phone] [address] Urinalysis screen and microscopy, with reflex to culture (03/24/2019 2:15 PM CDT) Pathologist Sig nature Specimen site Clean catch [facility] Color, UA Yellow [facility] Appearance, UA Clear [facility] Specific gravity, 1.017 1.001 - 1.035 [facility] pH, UA 5.0 5.0 - 8.5 [facility] Protein, UA Negative Negative [facility] Glucose, UA Negative Negative [facility] Ketones, UA Negative Negative [facility] Bilirubin, UA Negative Negative [facility] Blood, UA Negative Negative [facility] Nitrite, UA Negative Negative [facility] Urobilinogen, UA <2.0 <2.0 [facility] Leukocyte esterase, Trace (A) Negative [facility] WBC, UA 3 0 - 4 /HPF [facility] RBC, UA 1 0 - 5 /HPF [facility] Bacteria, UA Few None seen [facility] Yeast, UA None seen [facility] Yeast with None seen [facility] pseudohyphae, UA HOSPITAL Hyaline casts, UA >20 (A) /LPF [facility] Specimen Urine Performing Organization Address City/State/Zipcode Phone Number [facility] DEPARTMENT OF PATHOLOGY AND [address] [place] [address] [phone] [address] ECG Pre/Post Op (03/24/2019 1:52 PM CDT) Pathologist Sig nature Ventricular rate 93 [facility] Atrial rate 93 [facility] KS interval 148 [facility] QRSD interval 80 [facility] QT interval 384 [facility] QTC interval 477 [facility] P axis 1 33 [facility] QRS axis 1 9 [facility] T wave axis 53 [facility] EKG impression Normal sinus [facility] rhythm-Possible Left atrial enlargement-Borderline ECG-In automated comparison with ECG of 16-OCT-2018 14:50,-No significant change was found- Specimen Narrative Performed At This result has an attachment that is no t available. Performing Organization Address [facility] Phone Number [facility] MUSE [address] [place] [address] Estimated GFR (03/24/2019 1:45 PM CDT) Pathologist [facility] Estimated GFR 82 mL/min/1.73 [facility] Comment: HOSPITAL Catergory Units Interpretation G1 >=90 Normal or high G2 60-89 Mildly decreased G3a 45-59 Mildly to moderately decreas ed G3b 30-44 Moderately to severely decre ased G4 15-29 Severely decreased G5 <15 Kidney failure The eGFR was calculated using the Chronic Kidney Disea se Epidemiology Collaboration (CKD-EPI) equation. Interpretation is based on recommendations of the National Kidney Foundation-Kidney Disease Outcomes Momo lity Initiative (NKF-KDOQI) published in 2014. Specimen Plasma specimen Performing Organization Address City/State/Zipcode Phone Number [facility] DEPARTMENT OF PATHOLOGY AND [address] [place] [address] [phone] [address] Partial thromboplastin time, activated (03/24/2019 1:45 PM CDT) Pathologist [facility] PTT 27.5 23.0 - 36.0 [facility] Comment: [facility] PTT therapeutic range for unfractionated heparin is 61.0-112.0 seconds which corresponds to Anti-Xa 0.3-0.7 U/ml. Specimen Blood Performing Organization Address City/State/Zipcode Phone Number [facility] DEPARTMENT OF PATHOLOGY AND [address] [place] [address] [phone] [address] Prothrombin time with INR (03/24/2019 1:45 PM CDT) Pathologist [facility] Prothrombin time 13.0 11.5 - 14.5 [facility] INR 1.0 [facility] Comment: [facility] Normalized Ratio (INR) is a therapeu [facility] HOSPITAL monitoring tool for patients who are stable on oral anticoagulant therapy. An INR of 2.0-3.0 is suggested for deep vein thrombosis/pulmonary embolism. Specimen Blood Performing Organization Address City/[facility] Phone Number [facility] DEPARTMENT OF PATHOLOGY AND [address] [place] [address] [phone] [address] Comprehensive metabolic panel (03/24/2019 1:45 PM CDT) [facility] Sodium 140 135 - 148 [facility] mEq/L [facility] Potassium 3.8 3.5 - 5.0 [facility] mEq/L [facility] Chloride 98 98 - 112 mEq/L [facility] CO2 28 24 - 31 mEq/L [facility] Anion gap 14@ANIO 7 - 15 mEq/L [facility] BUN 16 6 - 20 mg/dL [facility] Creatinine 0.79 0.50 - 0.90 [facility] mg/dL HOSPITAL Glucose 71 65 - 99 mg/dL [facility] Calcium 10.0 8.3 - 10.2 [facility] mg/dL HOSPITAL Protein 7.1 6.3 - 8.3 g/dL [facility] Comment: HOSPITAL Oocfmgx2609.6-7.0 g/dL 1 qsiq8516.4-7.6 g/dL 7 months-9doom638.1-7.3 g/dL 1-2 ucduj788.6-7.5 g/dL >3 wahfu799.0-8.0 g/dL 18-9920583.3-8.3 g/dL Albumin 4.0 3.5 - 5.0 g/dL [facility] A/G ratio 1.3 0.7 - 3.8 [facility] Alkaline phosphatase 82 35 - 104 U/L [facility] AST 31 10 - 35 U/L [facility] ALT 25 5 - 50 U/L [facility] Total bilirubin 0.5 0.0 - 1.2 [facility] mg/dL HOSPITAL Specimen Plasma specimen Performing Organization Address City/State/Zipcode Phone Number [facility] DEPARTMENT OF PATHOLOGY AND [address] [place] [address] [phone] GENOMIC MEDICINE 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
--- OUTSIDE RECORDS SUMMARY | 2020-02-15 12:46 | XMS REPORT | Continuity of Care Document ---
:1960 Author Organization [facility] [place] Information Lindsay Care Team Providers Name Role Phone 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 GASTROGASTRIC Active 08/22/19 FISTULA [address] [facility] Anxiety (finding) Active 06/10/19 Problem 11/26/2017 [facility] Medical 12 [facility], [facility] [place], [facility], [facility] [place] Anxiety Active 06/10/19 Problem 12/04/2012 OPID 12 [place],[facility] GERD 530.11 Active 06/07/[address] [facility] Abdominal pain Active Problem 11/26/2017 Melissa edical (finding) Group,[facility] her Neuro,[facility], OPID Vince, OPID 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, OPID [place] Depressive Active Problem 11/26/2017 Medic al disorder Group,[facility] her Neuro,[facility], OPID Vince, OPID [facility], OPID [place] Endometriosis Resolved Problem 11/26/2017 Me dical (disorder) Group,[facility], RACHELLE Clarke, OPID [facility], OPID [place] History of - Active Problem 11/26/2017 Med ical arthrodesis Group,[place] sc (context-dependen he r t category) Neuro,[facility], OPID [place], OPID [facility], OPID [place] Hypertensive Active Problem 11/26/2017 Med ical disorder, Group,[facility] systemic arterial he r (disorder) Neuro,[facility], OPID Vince, OPID [facility], OPID [place] Pain (finding) Active Problem 11/26/2017 [facility] her Neuro,[facility], OPID Vince, OPID [facility], OPID [place] Prolapsed lumbar Active Problem 11/26/2017 Medical intervertebral Group ,[facility] disc (disorder) her Neuro,[facility], OPID Vince, OPID [facility], OPID [place] Rectal hemorrhage Active Problem 11/26/2017 [facility] Medical (disorder) Group,Mis c her Neuro,[facility], OPID Vince, OPID [facility], OPID [place] Reflux (finding) Active Problem 11/26/2017 Medical Group,[facility] her Neuro,[facility], OPID Vince, OPID [facility], OPID [place] Rheumatoid Active Problem 11/26/2017 Medic al arthritis Group,[facility] her Neuro,[facility], OPID Vince, OPID [facility], OPID [place] Reflux Active Problem 12/04/2012 OPIShannon Clarke,[facility] Scoliosis, 11/25/2017 OPID unspecified [place] Low back pain 11/25/2017 OP ID [place] Radiculopathy, 11/25/2017 O PID lumbar region [place] Other specified 11/25/2017 OPID disorders of bone [place] density and structure, other site Abdominal pain Active Problem 12/04/2012 [facility] Ankylosing Resolved Problem 12/04/[address] [facility] Depression Active Problem 12/04/2012 [facility] Endometriosis Resolved Problem 12/04/2012 [facility] Pain Active Problem 12/04/2012 OPID [place],[facility] Rectal bleeding Active Problem 12/04/2012 [facility] Rheumatoid Active Problem 12/04/[address] [facility] ADMINISTRTVE Active ENCOUNT NOS [facility] OTHER SPECIFIED Active [facility] CONGENITAL Medical [facility] Medications Medication Details Route Status Patient Ordering Order Source Instructions Provider Date pregabalin 50 100 mg = 2 Active 07/10/ Mischer MG Oral Capsule cap, PO, TID, 2018 Ne uro [Lyrica] # 180 cap, 2 Refill(s), called to pharmacy pregabalin 50 100 mg = 2 No Longer 07/09/ Misch er MG Oral Capsule cap, PO, TID, Active 2017 Ne uro [Lyrica] # 180 cap, 1 Refill(s), called to pharmacy Acetaminophen 1 - 2 tab, PO, Active 06/06/ Mis neena 300 MG / Q6H, PRN Pain, 2017 Neuro Codeine X 4 day, # 90 Phosphate 30 MG tab, 0 Oral Tablet Refill(s), [Tylenol with called to Codeine #3] pharmacy pregabalin 50 2 caps, PO, Active 05/29/ Mische r MG Oral Capsule BID, # 120 2017 Neuro [Lyrica] caplet, 2 Refill(s), called to pharmacy duloxetine 30 30 mg = 1 cap, Active 05/29/ Mis neena MG Enteric PO, Daily, # 2017 Neuro Coated Capsule 30 cap, 1 [Cymbalta] Refill(s), Pharmacy: [facility] [id number] Acetaminophen 1 tab, PO, Active 04/29/ Mischer 325 MG / Q6H, PRN for 2017 Neuro Hydrocodone pain, # 24 Bitartrate 10 tab, 0 MG Oral Tablet Refill(s) [Eola 10/325] Ondansetron Notes: (Same No Longer 08/14/ Manohar carrington as: Zofran) Active 2017 Medical MEDICATION Center WASTE Product Size: 4 mg Product Wasted: ___ mg Oxycodone Notes: (Same No Longer 08/14/ Sugar torres as: Active 2016 Medical Roxicodone) Center Labetalol 10 mg, 2 mL, No Longer 08/14/ Sugar torres Route: IVP, Active 2017 Medical Drug form: Center INJ, Q5Min, Dosing Weight 77.273, kg, PRN Elevated BP, 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, Duration: 5 doses or times, Stop date: Limited # of times Naloxone Notes: Same as No Longer [place] as Narcan Active 2017 Medical Center Flumazenil Notes: (Same No Longer [place] as as: Romazicon) Active 2017 Medical [place] Hydromorphone Notes: Same No Longer [place] as: Dilaudid Active 2017 Medical Center Acetaminophen 1 tab, PO, [place] 325 MG / Q6H, 0 2017 Medical Hydrocodone Refill(s) Center Bitartrate 10 MG Oral Tablet [[place] 10/325] Methocarbamol 500 mg = 1 [place] 500 MG Oral tab, PO, QID, 2017 Medica l Tablet PRN muscle Center [Robaxin] pain, X 14 day, # 56 tab, 0 Refill(s) Famotidine 20 20 mg = 1 tab, Active [place] MG Oral Tablet PO, BID, # 60 2017 Med ical [Pepcid] tab, 0 Center Refill(s) {21 See Active (Methylpredniso Instructions, 2017 Me dical lone 4 MG Oral PO, Take by Cente r Tablet mouth as [Medrol]) } directed on Pack [Medrol label., # 1 Dosepak] Pack, 0 Refill(s) magnesium 8.725 gm = 150 Active [place] citrate 58.2 ml, PO, ONCE, 2017 Medic al MG/ML Oral # 300 ml, 0 Center Solution Refill(s) Docusate Sodium 100 mg = 1 [place] 100 MG Oral cap, PO, BID, 2017 Medica l Capsule PRN Center [Colace] Constipation, # 60 cap, 0 Refill(s) omeprazole 20 20 mg = 1 tab, Active [place] mg oral enteric PO, Daily, # 2017 Med ical coated tablet 30 tab, 3 Center Refill(s) Streptococcus Notes: Lightly Inactive Angelique pneumoniae roll vial (DO 2016 Medical serotype 1 NOT SHAKE) Center capsular before antigen administration diphtheria . (Same as: [id number] protein Prevnar 13) conjugate vaccine / Streptococcus pneumoniae serotype 14 capsular antigen diphtheria [id number] protein conjugate vaccine / Streptococcus pneumoniae serotype 18C capsular antigen d Methocarbamol 1,000 mg = 2 [place] 500 MG Oral tab, PO, QID, 2016 Medica l Tablet X 10 day, # 80 Center [Robaxin] tab, 0 Refill(s) Famotidine 20 20 mg = 1 tab, Active [place] MG Oral Tablet PO, BID, # 60 2016 Med ical [Pepcid] tab, 0 Center Refill(s) {21 See Active [place] (Methylpredniso Instructions, 2016 Me dical lone 4 MG Oral PO, Take by Cente r Tablet mouth as [Medrol]) } directed on Pack [Medrol label., X 6 Dosepak] day, # 1 Pack, 0 Refill(s) magnesium 8.725 gm = 150 Active [place] citrate 8.85% ml, PO, ONCE, 2016 Medi thiago oral liquid # 300 ml, 0 Center Refill(s) Docusate Sodium 100 mg = 1 Active [place] 100 MG Oral cap, PO, BID, 2016 Medica l Capsule PRN Center [Colace] Constipation, # 20 cap, 0 Refill(s) Cefazolin Notes: (Same No Longer [place] As: Ancef, Active 2015 Medical Kefzol) Center MEDICATION WASTE Product Size: 1000 mg Product Wasted: ___ mg Dexamethasone Notes: No Longer [place] Concentration: Active 2015 Medical 4mg/ml Center pantoprazole Notes: Tablet No Longer [place] should not be Active 2015 Medical chewed or Center crushed. (Same as: Protonix) Losartan Notes: (Same No Longer [place] as: Cozaar) Active 2015 Medical Center Labetalol 10 mg, Route: Inactive [place] IVP, Q5Min, 2016 Medical Dosing Weight Center 79.545, kg, PRN Elevated BP, Start date: 02/14/16 9:15:00 CDT, Duration: 5 doses or times, Stop date: Limited # of times leflunomide 20 mg, Route: Inactive [place] PO, Drug form: 2016 Medical TAB, Daily, Center Dosing Weight 79.545, kg, Start date: 02/14/16 9:00:00 CDT, Duration: 30 day, Stop date: 03/14/16 9:00:00 CDT Cymbalta Notes: (Same No Longer [place] as: Cymbalta) Active 2016 Medical (Do Not Center Crush) Robaxin Notes: (Same No Longer [place] as:Robaxin) Active 2016 Medical Center Famotidine Notes: (Same No Longer [place] as as: Pepcid) Active 2016 Medical Can be dilute Center in 5-10cc NS IVP: Slow IV push over at least 2 minutes. Docusate Sodium Notes: (Same No Longer [facility] 100 MG Oral as: Colace) Active 2015 Medical Capsule (Do Not Crush) Center Naloxone Notes: Same as No Longer [place] as Narcan Active 2015 Medical Center Flumazenil Notes: (Same No Longer [place] as as: Romazicon) Active 2015 Medical Center Ondansetron Notes: (Same No Longer [place] as: Zofran) Active 2015 Medical MEDICATION Center WASTE Product Size: 4 mg Product Wasted: ___ mg Hydromorphone Notes: Same No Longer [place] as: Dilaudid Active 2015 Medical Center Hydralazine Notes: (Same No Longer [place] as: Active 2015 Medical Apresoline) Center Push over 5 minutes Regular 60 units) No Longer [facility] Insulin, Human WASTE: F/P - Active 2015 [facility] thiago 100 UNT/ML Black; E - Center Injectable Municipal Solution Trash Bin Stable for 28 days at room temperature Expires in days from Date Dextrose 50% 6.25 gm, 12.5 No Longer [place] Syringe mL, Route: Active 2015 Medical IVP, Drug Center Form: INJ, Dosing Weight 79.545, kg, PRN, PRN Abnormal Lab Result, Start date: 02/14/16 8:13:00 CDT, Duration: 30 day, Stop date: 03/15/16 8:12:00 CDT Acetaminophen Notes: Do not No Longer [place] 325 MG / exceed 4gm/day Active 2015 Medical Hydrocodone of Center Bitartrate 10 acetaminophen. MG Oral Tablet (Same as: [[place] 10/325] [place] 325/10) phenol 5 MG/ML Notes: No Longer [place] Mucosal [place] Chloraseptic Active 2015 Medic al [place] (Same Center as: Chloraseptic, Sore Throat Weiser) WASTE: F/P - Black; E - Municipal Trash Bin Ondansetron Notes: (Same No Longer [place] as: Zofran) Active 2015 Medical MEDICATION Center WASTE Product Size: 4 mg Product Wasted: ___ mg Morphine Notes: (Same No Longer [place] as:MORPhine Active 2015 Medical Sulfate) Center Sodium Chloride 1,000 mL, No Longer [place] 0.154 MEQ/ML Rate: 50 Active 2015 Medical Injectable ml/hr, Infuse Center Solution over: 20 hr, Route: IV, Dosing Weight 79.545 kg, Total Volume: 1,000, Start date: 02/14/16 8:13:00 CDT, Duration: 30 day, Stop date: 03/15/16 8:12:00 CDT Ancef + sodium Notes: (Same Inactive [place] chloride 0.9% As: Ancef, 2015 Medical INJ 100 mL Kefzol) Center MEDICATION WASTE Product Size: 1000 mg Product Wasted: ___ mg ceFAZolin Notes: Same No Longer [place] as: Ancef Active 2015 [facility] Celebrex 50 mg 50 mg, 1 cap, PO Active oral capsule PO, BID, 60 2012 Memoria l cap, City Substitution Allowed, CAP Cymbalta 60 mg 60 mg, 1 cap, PO Active oral delayed PO, Daily, 2012 [facility] release capsule Substitution Cit y Allowed methotrexate 25 3.3 MG/M2, IM, IM Active 12/02/ H mg/mL Q7D, 2012 [facility] injectable Substitution [place] solution Allowed Humira 20 20 mg, 0.4 ml, SUB-Q Active mg/0.4 mL SUB-Q, q2wk, 1 2012 [place] l subcutaneous kit, [place] solution Substitution Allowed, KIT Ambien 10 mg, 1 tab, PO No Longer [place] Route: PO, 2011 [facility] Drug form: [place] TAB, Bedtime, Start date: 08/31/11 21:00:00, Duration: 30 day, Stop date: 09/29/11 21:00:00 Prozac 20 mg, 1 cap, PO No Longer [place] Route: PO, 2011 [facility] Drug form: [facility] CAP, QAM, Start date: 08/31/11 12:38:00, Duration: 30 day, Stop date: 09/30/11 9:00:00 ketorolac 30 30 mg, 1 mL, IVP No Longer [place] mg/mL Route: IVP, 2011 [facility] injectable Drug form: [facility] solution INJ, Q6H, Start date: 08/31/11 12:00:00, Duration: 4 day, Stop date: 09/04/11 6:00:00 acetaminophen-h 15 mL, Route: PO No Longer [place] ydrocodone PO, Drug Form: 2011 Memori al ELIX, Q4H, PRN [facility] Pain, Start date: 08/31/11 11:01:00, Duration: 30 day, Stop date: 09/30/11 11:00:00 Tylenol 650 mg, 20.3 PO No Longer [place] mL, Route: PO, 2011 [facility] Drug form: [facility] LIQ, Q4H, PRN Pain Score 1-3, Start date: 08/31/11 11:01:00, Duration: 30 day, Stop date: 09/30/11 11:00:00 Lactated 1,000 mL, IV No Longer [place] Ringers Rate: 80 Active 2011 [facility] Injection IV ml/hr, Infuse [place] 1,000 mL over: 12.5 hr, Route: IV, Dosing Weight 80.256 kg, Total Volume: 1,000, Start date: 08/31/11 11:01:00, Duration: 30 day, Stop date: 09/30/11 11:00:00 heparin 5,000 unit, 1 SUB-Q No Longer [place] mL, Route: Active 2011 [facility] SUB-Q, Drug City form: INJ, ONCE, Start date: 08/30/11 22:00:00, Stop date: 08/30/11 22:00:00 Pepcid 20 mg, 2 mL, IVP No Longer [place] Route: IVP, Active 2011 [facility] Drug form: [place] INJ, Q12H, Start date: 08/30/11 21:00:00, Duration: 30 day, Stop date: 09/29/11 9:00:00 Reglan 10 mg, 2 mL, IVP No Longer [place] Route: IVP, Active 2011 [facility] Drug form: [place] INJ, Q8H, Start date: 08/30/11 18:00:00, Duration: 2 day, Stop date: 09/01/11 10:00:00 Tylenol 650 mg, 1 [place] No Longer [place] supp, Route: [facility] 2011 [facility] [place], Drug form: [place] SUPP, Q4H, PRN Fever, Start date: 08/30/11 16:50:00, Duration: 30 day, Stop date: 09/29/11 16:49:00 Phenergan 25 mg, 1 mL, IM No Longer [place] Route: IM, Active 2011 [facility] Drug form: [place] INJ, Q4H, PRN Nausea, Start date: 08/30/11 16:49:00, Duration: 30 day, Stop date: 09/29/11 16:48:00 Lactated 1,000 mL, IV No Longer [place] Ringers Rate: 125 Active 2011 [facility] Injection IV ml/hr, Infuse [place] 1,000 mL over: 8 hr, Route: IV, Dosing Weight 80.256 kg, Total Volume: 1,000, Start date: 08/30/11 16:49:00, Duration: 1 day, Stop date: 08/31/11 16:48:00 morphine 2 mg, 1 mL, IVP No Longer [place] Sulfate Route: IVP, Leonor 2011 [facility] Drug form: [place] INJ, ONCE, Start date: 08/30/11 13:46:00, Stop date: 08/30/11 13:46:00 Phenergan 6.25 mg, IVPB No Longer [place] Route: IVPB, Leonor 2011 [facility] ONCE, Start City date: 08/30/11 13:33:00, Stop date: 08/30/11 13:33:00 Phenergan 12.5 mg, 0.5 IVPB No Longer [place] mL, Route: [facility] 2011 [facility] IVPB, Q6H, PRN [place] Nausea & Vomiting, Start date: 08/30/11 12:52:00, Duration: 30 day, Stop date: 09/29/11 12:51:00 Zofran 4 mg, 1 tab, PO No Longer [place] Route: PO, Active 2011 [facility] Drug form: [place] TAB, Q8H, PRN Nausea & Vomiting, Start date: 08/30/11 12:51:00, Duration: 30 day, Stop date: 09/29/11 12:50:00 naloxone 0.2 mg, 0.5 IVP No Longer [place] mL, Route: Active 2011 [facility] IVP, Drug City form: INJ, Q5Min, PRN Narcotic Reversal, Start date: 08/30/11 12:50:00, Duration: 30 day, Stop date: 09/29/11 12:49:00 morphine IV, Start IV No Longer [place] Sulfate 30 mg date: 08/30/11 [facility] 2011 [facility] orial 12:49:00, [facility] Duration: 30, 30 ml heparin 5,000 unit, SUB-Q No Longer [place] Route: SUB-Q, Active 2011 [facility] ONCE, Start [facility] date: 08/30/11 9:34:00, Stop date: 08/30/11 9:34:00 Invanz 1 gm, Route: IVPB No Longer [place] IVPB, PRE OP, [address] Start date: [facility] 08/30/11 6:30:00, Stop date: 08/30/11 17:00:00 chlorhexidine 15 mL, Route: S&SPIT No Longer [place] topical 0.12% S&SPIT, PRE Active 2011 Memori al liquid OP, Drug form: [facility] LIQ, Start date: 08/30/11 6:30:00, Stop date: 08/30/11 17:00:00 Allergies, Adverse Reactions, Alerts Substance Category Reaction Severity Reaction Status Date Comments S ource type Reported NKFA Assertion Food Active OPI D allergy [facility] Immunizations Immunization Date Site Status Last Comments Source Given Updated pneumococcal Left completed [facility]ch Medi thiago 13-valent vaccine 6 Deltoid Gr oup,[place] Neuro,[facility], OP ID [place] pneumococcal Left completed Doetsch OPID 13-valent vaccine 6 Deltoid He rmann Results Order Name Results Value Reference Date Interpretation Comments Deirdre rce [facility] HEMATOLOGY Basophils # 0.1 0.0 - 0.2 08/10 [facility] HEMATOLOGY Basophils 0.6 0.0 - 1.0 08/10 [facility] HEMATOLOGY Lymphocytes 0.5 1.0 - 5.5 08/10 [facility] HEMATOLOGY Segs-Bands # 7.2 1.5 - 8.1 08/10 [facility] HEMATOLOGY Monocytes # 0.4 0.0 - 0.8 08/10 [facility] HEMATOLOGY Eosinophils 0.2 0.0 - 4.0 08/10 [facility] HEMATOLOGY Lymphocytes 6.6 20.0 - 08/10 [place] 40.0 /2016 [facility] HEMATOLOGY Segs 88.0 45.0 - 08/10 [place] 75.0 [facility] HEMATOLOGY Monocytes 4.6 2.0 - 12.0 08/10 [facility] HEMATOLOGY Hgb 10.4 12.0 - 08/10 [place] 16.0 [facility] HEMATOLOGY WBC 8.2 3.7 - 10.4 08/10 [facility] HEMATOLOGY RBC 4.15 4.20 - 08/10 [place] 5.40 /2017 [facility] HEMATOLOGY MCHC 31.4 32.0 - 08/10 [place] 36.0 /2016 [facility] HEMATOLOGY MCV 80.0 80.0 - 08/10 [place] 98.0 /2017 [facility] HEMATOLOGY MCH 25.1 27.0 - 08/10 [place] 31.0 2017 [facility] HEMATOLOGY Hct 33.2 36.0 - 08/10 [place] 48.0 [facility] HEMATOLOGY RDW 19.7 11.5 - 08/10 [place] 14.5 /2016 [facility] HEMATOLOGY MPV 7.9 7.4 - 10.4 08/10 [facility] HEMATOLOGY Platelet 280 133 - 450 08/10 [facility] Center BLOOD BANK Antibody Negative 02/13 [facility] RESULTS Scrn (02/14/16 6:50 AM) [facility] BLOOD BANK ABO/Rh O POS 02/13 [place] RESULTS /2015 [facility] CHEM PANEL eGFR 84 02/13 Result Comment: The [facility] eGFR is Center calculated using the CKD-EPI formula. In most young, healthy individuals the eGFR will be >90 mL/min/1.73m2 . The eGFR declines with age. An eGFR of 60-89 may be normal in some populations, particularly the elderly, for whom the CKD-EPI formula has not been extensively validated. Use of the eGFR is not recommended in the following populations:< br/>
Zenia viduals with unstable creatinine concentration s, including patients and those with serious co-morbid conditions.<b r/>
Patie nts with extremes in muscle mass or diet.

The data above are obtained from the National Kidney Disease Education Program (NKDEP) which additionally recommends that when the eGFR is used in patients with extremes of body mass index for purposes of drug dosing, the eGFR should be multiplied by the estimated BMI. CHEM PANEL Glucose Lvl 76 70 - 99 02/13 [facility] CHEM PANEL AGAP 16.0 10.0 - 02/13 [place] 20.0 [facility] CHEM PANEL Calcium Lvl 8.2 8.5 - 10.5 02/13 [facility] CHEM PANEL CO2 26 24 - 32 02/13 [facility] CHEM PANEL Creatinine 0.79 0.50 - 02/13 [facility] Lvl 1.40 [facility] CHEM PANEL Potassium 4.0 3.5 - 5.1 02/13 [facility] Lvl [facility] CHEM PANEL BUN 16 7 - 22 02/13 [facility] CHEM PANEL Sodium Lvl 146 135 - 145 02/13 [facility] CHEM PANEL Chloride Lvl 108 95 - 109 02/13 [place] /[place] [facility] HEMATOLOGY Lymphocytes 2.9 1.0 - 5.5 02/13 [place] # /2015 [facility] HEMATOLOGY Segs-Bands # 3.4 1.5 - 8.1 02/13 [place] [facility] HEMATOLOGY Basophils 1.1 0.0 - 1.0 02/13 [facility] HEMATOLOGY Eosinophils 2.1 0.0 - 4.0 02/13 a s /2015 [facility] HEMATOLOGY Anisocyte 1+ None Seen 02/13 [facility] *ABN* /2015 [facility] (02/14/16 6:50 AM) [place] HEMATOLOGY Basophils # 0.1 0.0 - 0.2 02/13 a s /2015 [facility] HEMATOLOGY Eosinophils 0.2 0.0 - 0.5 02/13 [place] # /2015 [facility] HEMATOLOGY Monocytes # 0.7 0.0 - 0.8 02/13 a s /2015 [facility] HEMATOLOGY Monocytes 9.5 2.0 - 12.0 02/13 [facility] HEMATOLOGY Lymphocytes 39.6 20.0 - 02/13 [place] 40.0 [facility] HEMATOLOGY Segs 47.7 45.0 - 02/13 [place] 75.0 /2015 [facility] HEMATOLOGY MPV 7.2 7.4 - 10.4 02/13 [facility] HEMATOLOGY Platelet 301 133 - 450 02/13 [facility] HEMATOLOGY RDW 22.6 11.5 - 02/13 [place] 14.5 /2015 [facility] HEMATOLOGY Hct 30.2 36.0 - 02/13 [place] 48.0 [facility] HEMATOLOGY MCV 80.7 80.0 - 02/13 [place] 98.0 [facility] HEMATOLOGY MCH 25.3 27.0 - 02/13 [place] 31.0 [facility] [facility] HEMATOLOGY MCHC 31.3 32.0 - 02/13 [place] 36.0 [facility] HEMATOLOGY WBC 7.2 3.7 - 10.4 02/13 [facility] HEMATOLOGY RBC 3.74 4.20 - 02/13 [place] 5.40 /2015 [facility] HEMATOLOGY Hgb 9.5 12.0 - 02/13 [place] 16.0 [facility] CHEMISTRY AGAP 12.0 10.0 - 08/30 Normal . [facility] CHEMISTRY B/C Ratio 13 6 - 25 08/[address] [facility] CHEMISTRY Globulin 2.3 2.0 - 4.0 08/[address] [facility] CHEMISTRY A/G Ratio 1.3 0.7 - 1.6 08/[address] [facility] CHEMISTRY Alk Phos 93 39 - 136 03/23 Normal MH /[address] [facility] CHEMISTRY ALT 179 0 - 65 08/30 HI MH /[address] [facility] CHEMISTRY Bili Total 0.5 0.2 - 1.3 08/30 Normal MH /[address] [facility] CHEMISTRY AST 186 0 - 37 08/30 HI MH /[address] [facility] CHEMISTRY Sodium Lvl 141 135 - 145 08/30 Normal MH /[address] [facility] CHEMISTRY Creatinine 0.6 0.5 - 1.4 08/30 Normal MH Lvl /[address] [facility] CHEMISTRY Glucose Lvl 78 70 - 99 08/30 Normal <sup>1</sup>I nterpretive [facility] Data: [facility] reference range values reflect the clinical guidelines of the [place] [employer]. CHEMISTRY BUN 8 7 - 22 08/30 Normal MH [facility] CHEMISTRY Total 5.4 6.4 - 8.4 08/30 LOW MH Protein [facility] CHEMISTRY Albumin Lvl 3.1 3.5 - 5.0 08/30 LOW MH /[address] [facility] CHEMISTRY Potassium 4.0 3.5 - 5.1 08/30 Normal MH Lvl /[address] [facility] CHEMISTRY Calcium Lvl 8.1 8.5 - 10.5 08/30 LOW MH /[address] [facility] CHEMISTRY Chloride Lvl 104 95 - 109 08/30 Normal MH /[address] [facility] CHEMISTRY CO2 29 24 - 32 08/30 Normal /[address] [facility] HEMATOLOGY Eosinophils 0.1 0.0 - 0.5 08/30 Normal MH # /[address] [facility] HEMATOLOGY Monocytes # 0.5 0.0 - 0.8 08/30 Normal MH /[address] [facility] HEMATOLOGY Lymphocytes 0.8 1.0 - 5.5 08/30 LOW MH # /[address] [facility] HEMATOLOGY Basophils 0.1 0.0 - 1.0 08/30 Normal MH /[address] [facility] HEMATOLOGY Segs-Bands # 7.2 1.5 - 8.1 08/30 Normal MH /[address] [facility] HEMATOLOGY Segs 84.2 45.0 - 08/30 HI MH 75.0 /[address] [facility] HEMATOLOGY Lymphocytes 8.8 20.0 - 08/30 LOW MH 40.[address] [facility] HEMATOLOGY Eosinophils 0.8 0.0 - 4.0 08/30 Normal /[address] [facility] HEMATOLOGY Monocytes 6.1 2.0 - 12.0 08/30 Normal MH /[address] [facility] HEMATOLOGY Hct 30.4 36.0 - 08/30 LOW MH 48.0 /[address] [facility] HEMATOLOGY MCHC 32.7 32.0 - 08/30 Normal MH 36.0 /[address] [facility] HEMATOLOGY RDW 15.9 11.5 - 08/30 HI MH 14.5 /[address] [facility] HEMATOLOGY MCH 28.3 27.0 - 08/30 Normal MH 31.0 /[address] [facility] HEMATOLOGY MCV 86.5 81.0 - 08/30 Normal MH 99.0 /[address] [facility] HEMATOLOGY MPV 8.7 7.4 - 10.4 08/30 Normal MH /[address] [facility] HEMATOLOGY Platelet 163 133 - 450 08/30 Normal MH /[address] [facility] HEMATOLOGY WBC 8.6 3.7 - 10.4 08/30 Normal MH /[address] [facility] HEMATOLOGY Hgb 10.0 12.0 - 08/30 LOW MH 16.0 /[address] [facility] HEMATOLOGY RBC 3.52 4.20 - 08/30 LOW MH 5.40 /[address] [facility] BLOOD BANK ABO/Rh O POS 08/23 Unknown RESULTS /[address] [facility] BLOOD BANK Antibody Negative 08/23 Normal RESULTS Scrn (08/24/2011 17:00:00) /2011 [facility] CHEMISTRY CO2 29 24 - 32 08/[address] [facility] CHEMISTRY Chloride Lvl 104 95 - 109 08/[address] [facility] CHEMISTRY Sodium Lvl 141 135 - 145 08/[address] [facility] CHEMISTRY Potassium 4.3 3.5 - 5.1 08/23 Normal Lvl /[address] [facility] CHEMISTRY Alk Phos 79 39 - 136 08/[address] [facility] CHEMISTRY Bili Total 0.3 0.2 - 1.3 08/[address] [facility] CHEMISTRY Albumin Lvl 3.9 3.5 - 5.0 08/[address] [facility] CHEMISTRY ALT 39 0 - 65 08/[address] [facility] CHEMISTRY Calcium Lvl 8.7 8.5 - 10.5 08/[address] [facility] CHEMISTRY Total 7.5 6.4 - 8.4 08/[address] [facility] CHEMISTRY BUN 14 7 - 22 08/[address] [facility] CHEMISTRY Glucose Lvl 85 08/23 NA <sup>2</sup>I nterpretive [facility] Data: [facility] Reference Ranges : 0 - 7 days : 41 - 90 mg/dL 7 days - 150 yrs : 70 - 99 mg/dL (fasting), based on the clinical recommendatio ns of the [place] [employer]. CHEMISTRY Creatinine 0.9 0.5 - 1.4 08/23 Normal Lvl /[address] [facility] CHEMISTRY AST 27 0 - 37 03 Normal /[address] [facility] CHEMISTRY Globulin 3.6 2.0 - 4.0 [address] [facility] CHEMISTRY AGAP 12.3 10.0 - 08/23 Normal MH 20.[address] [facility] CHEMISTRY B/C Ratio 16 6 - 25 03 Normal /[address] [facility] CHEMISTRY A/G Ratio 1.1 0.7 - 1.6 08/[address] [facility] HEMATOLOGY Basophils # 0.0 0.0 - 0.2 08/23 Normal /[address] [facility] HEMATOLOGY Basophils 0.5 0.0 - 1.0 08/[address] [facility] HEMATOLOGY Segs-Bands # 5.2 1.5 - 8.1 08/[address] [facility] HEMATOLOGY Eosinophils 0.7 0.0 - 4.0 08/[address] [facility] HEMATOLOGY Lymphocytes 30.8 20.0 - 03 Normal MH 40.[address] [facility] HEMATOLOGY Monocytes 6.1 2.0 - 12.0 08/[address] [facility] HEMATOLOGY Eosinophils 0.1 0.0 - 0.5 / Normal MH /[address] [facility] HEMATOLOGY Monocytes # 0.5 0.0 - 0.8 08/23 Normal /[address] [facility] HEMATOLOGY Lymphocytes 2.6 1.0 - 5.5 08/23 Normal MH /[address] [facility] HEMATOLOGY Segs 61.9 45.0 - 08/23 Normal MH 75.[address] [facility] HEMATOLOGY PTT 28.5 22.9 - 03 Normal <sup>4</sup>I MH 35.8 /2011 nterpretive [facility] Data: [facility] Therapeutic Range: 57 - 92 Seconds HEMATOLOGY PT 12.3 12.0 - 03 Normal MH 14.7 /[address] [facility] HEMATOLOGY INR 0.91 0.85 - 08/23 Normal <sup>3</sup>I MH 1.17 /2011 nterpretive [facility] Data: [facility] RECOMMENDED RANGES FOR PROTIME INR: 2.0-3.0 for most medical and surgical thromboemboli c states. 2.5-3.5 for artificial heart valves and recurrent embolism. INR SHOULD BE USED ONLY FOR PATIENTS ON STABLE ANTICOAGULANT THERAPY. HEMATOLOGY RDW 15.9 11.5 - 08/23 HI MH 14.5 /[address] [facility] HEMATOLOGY MCHC 33.1 32.0 - 08/23 Normal MH 36.0 /[address] [facility] HEMATOLOGY MCH 28.1 27.0 - 08/23 Normal MH 31.0 /[address] [facility] HEMATOLOGY Platelet 244 133 - 450 08/23 Normal MH /[address] [facility] HEMATOLOGY MPV 8.1 7.4 - 10.4 08/23 Normal MH /[address] [facility] HEMATOLOGY Hgb 12.3 12.0 - 08/23 Normal MH 16.0 /[address] [facility] HEMATOLOGY Hct 37.1 36.0 - 08/23 Normal MH 48.0 /[address] [facility] HEMATOLOGY WBC 8.4 3.7 - 10.4 08/23 Normal /[address] [facility] HEMATOLOGY RBC 4.37 4.20 - 08/23 Normal MH 5.40 /[address] [facility] HEMATOLOGY MCV 84.8 81.0 - 08/23 Normal MH 99.0 /[address] [facility] IMMUNOLOGY HIV 1/2 Ab Negative Negative 08/23 NA *NA* /2011 [facility] (08/24/2011 17:00:00) Ci ty URINALYSIS UA 0.1 - 1.0 08/23 [facility] [place] [facility] URINALYSIS UA Ketones Negative mg/dL Negative 08/23 [facility] *NA* /2011 [facility] (08/24/2011 16:20:00) Ci ty URINALYSIS UA Protein Negative mg/dL Negative 08/23 Normal (08/24/2011 16:20:00) [facility] URINALYSIS UA Glucose Negative mg/dL Negative 08/23 [facility] *NA* /2011 [facility] (08/24/2011 16:20:00) Ci ty URINALYSIS UA Blood Negative Negative 08/23 Normal (08/24/2011 16:20:00) [facility] URINALYSIS UA Bili Negative Negative 08/23 [facility] *NA* [facility] (08/24/2011 16:20:00) Ci ty URINALYSIS Micro? Not Indicated 08/23 [facility] *NA* [facility] (08/24/2011 16:20:00) Ci ty URINALYSIS UA Turbidity Clear Clear 08/23 Normal (08/24/2011 16:20:00) [facility] URINALYSIS UA Color Yellow Yellow 08/23 NA *NA* /2011 [facility] (08/24/2011 16:20:00) Ci ty URINALYSIS UA pH 6.5 5.0 - 8.0 08/[address] [facility] URINALYSIS UA Spec Grav 1.012 <=1.030 08/[address] [facility] URINALYSIS UA Leuk Est Negative Negative 08/23 Normal (08/24/2011 16:20:00) [facility] URINALYSIS UA Nitrite Negative Negative 08/23 Normal (08/24/2011 16:20:00) [facility] Pathology Reports No Data Provided for This Section Diagnostic Reports Report Value Date Source Hip 2/3 views uni w Hip 2/3 views uni w pelvis DX 08/19/2017 [facility] pelvis DX CLINICAL HISTORY: - Scolosis/back pain FINDINGS/IMPRESSION: Single AP view of the pelvis and AP and oblique views of the left hip are submitted for review. No evidence for fracture or dislocation. Visualized bones demonstrate normal radiodensity. Mild degenerative change is present at both hip joints. Pelvic phleboliths. SL: [id number] Spine lumbar 2 or 3 Spine lumbar 2 or 3 views DX 08/19/2017 [facility] [place] views DX COMPARISON: 05/14/2017 [place] CLINICAL HISTORY: Scolosis/back pain - Standing AP/Lateral; FINDINGS: 3 views of the lumbar spine are submit lupe for review. 5 nonrib-bearing lumbar-type vertebra are visualized. There is generalized osteopenia. There is no evidence for com pression fractures. Grade 1 retrolisthesis is noted, unchanged from previous study. There is dextroscoliosis of lumbar spine. There is decrease in disc space height throughout the lumbar spine from L2-L3 through L5-S1 levels. The SI joints demonstrate normal morphology. IMPRESSION: Generalized osteopenia but no acute compression fractures noted. Stable grade 1 retrolisthesis of L5 relative to L4. Dextroscoliosis with superimposed degenerative c hanges. SL: [id number] Bone Density DXA Dual 05/14/2017 [facility] [place] BONE DENSITY ASSESSMENT: 05/14/2017 [facility] CLINICAL DATA: Clinical risk for osteoporosis. M41.50, M81.0/M41.50, M81.0 RISK FACTORS: race. FINDINGS: Bone density evaluation was performed 05/14/2017 on the right distal radius using a Hologic unit. The BMD average for the exam is 0.543 g/cm2. The T-score is -2.50 and the Z-score is -1.40. This match es the World Health Organiza tion's criteria for osteoporosis and places the patient at a high risk for fracture. An additional bone density e valuation was performed 05/14/2017 on the right femur neck using a Hologic unit. The BMD average for the exam is 0.698 g/cm2. The T-score is -1.40 and the Z-score is -0.20. This matches the World Heal th Organization's criteria for osteopenia and places the patient at a medium risk for fracture. An additional bone density e valuation was performed 05/14/2017 on the left femur neck using a Hologic unit. The BMD average for the exam is 0.731 g/cm2. The T-score is -1.10 and the Z-score is 0.10. T his matches the World Health Organization's criteria for osteopenia and places the patient at a medium risk for fracture. An additional bone density e valuation was performed 05/14/2017 on the right total femur area using a Hologic unit. The BMD average for the exam is 0.793 g/cm2. The T-score is -1.20 and the Z-score is - 0.40. This matches the Worl d Health Organization's criteria for osteopenia and places the patient at a medium risk for fracture. An additional bone density e valuation was performed 05/14/2017 on the left total femur area using a Hologic unit. The BMD average for the exam is 0.809 g/cm2. The T-score is -1.10 and the Z-score is -0 .30. This matches the World Health Organization's criteria for osteopenia and places the patient at a medium risk for fracture. An additional bone density e valuation was performed 05/14/2017 on the AP L1-L4 region of spine using a Hologic unit. The BMD average for the exam is 1.040 g/cm2. The T-score is -0.10 and the Z-score is 1.20. This matches the Wor ld Health Organization's criteria for normal bone density and places the patient within normal limits of fracture risk. IMPRESSION: OSTEOPOROSIS Patient is at high risk for fracture. Patient consult w/primary care provider is recommended. This exam was interpreted at [id number] at [facility]. Tiera Campa M.D. as/penrad:05/15/2017 15:15:36 Tower Climber(s): Gemma Rai RT(R)(M), [facility] Spine lumbar flex/ext EXAM: Spine lumbar flex/ext 2 view DX 10/2016 [facility] 2 view DX HISTORY: - Standing AP/Lateral and Standing Fl ex/Ext [place] COMPARISON: None AP, lateral extension, flexion and neutral views of the lumbar spine. FINDINGS: Dextrocurvature of the lumba r spine noted as described on the scoliosis radiographs from same day. There is 2 to 3 mm retrolist hesis of L2 on L3 which is stable on flexion and extension. There is 3 to 4 mm anterolisthesis of L4 on L5 i s stable on extension. There is facet arthropathy w hich is moderate to severe at the lumbosacral junction. Vertebral body heights are maintained. IMPRESSION: Degenerative change of the lumbar sp ine as above. Spine T-L (or entire) EXAM: Spine T-L (or entire) 2-3 Views DX 1 07/15/2016 [facility] 2-3 Views DX HISTORY: - degenerative scoliosis [facility] COMPARISON: None AP and lateral thoracolumbar spine. IMPRESSION: There is levocurvature of approximately 20 degre es centered at T9-10. There is dextrocurvature centered at L2 of appro ximately 37 degrees. Spine lumbar wo EXAM: MRI LUMBAR SPINE WITHOUT CONTRAST 04/06/20 17 [facility] contrast MRI DATE: 04/06/2017 INDICATION: - M54.16 Radiculopathy, lumbar re gion COMPARISON: MRI lumbar spine 07/28/2016 TECHNIQUE: Sagittal T1, sagi ttal T2, sagittal T2 with fat saturation, axial T1, and axial T2-weighted images of the lumbar spine are obtained without contrast. DISCUSSION: Moderate dextroscoliosis of the thoracolumbar spine with apex at L1-L2. Postoperative changes of the posterior left-sided decompression laminectomy at L2-L3. The conus medullaris terminates at the level of T12. At T12-L1, mild endplate spu rring and disc bulge with no spinal chondral foraminal narrowing is present. At L1-L2, degenerative grade 1 retrolisthesis of the L1 on L2, endplate spurring and disc bulge with no high-grade spinal canal narrowing. Moderate left neural foraminal narrowing and mild right neural foraminal narrowing at this level. At L2-L3, postoperative caass ges of the left decompression laminectomy. Endplate spurring and disc bulge with grade 1 retrolisthesis of the L2 on L3 resulting in mild spinal canal narrowing. Mild right n eural foraminal narrowing. S evere left neural foraminal narrowing with associated impingement of the left exiting L2 nerve root. Previously identified loose disc material in the anterior aspect of the spinal canal is no longer appreciated. At L3-L4, postoperative casas ges of the left decompression laminectomy. Endplate spurring and disc bulge along with facet arthropathy resulting in moderate spinal canal narrowing. Bilateral facet arthrop athy resulting in possible i mpingement of traversing bilateral L4 nerve roots. Moderate to marked left and mild right foraminal narrowing with possible impingement of the left exiting L3 nerve root. The re is right lateral listhesi s of the L3 on L4 now measuring about 1.0 cm, which is increased compared to prior exam (previously measured 0.6 cm). At L4-5, endplate spurring a nd disc bulge resulting in mild spinal canal narrowing. Moderate left and moderate to marked right neural foraminal narrowing with possible abutment of the right exiting L4 n erve root. Facet arthropathy resulting in impingement of traversing right L5 nerve root. At L5-S1, endplate spurring and disc bulge resulting in mild spinal canal narrowing. Bilateral facet arthropathy and disc material resulting in bilateral subarticular zone narrowing and impingement of t raversing right S1 nerve thierry t and possible abutment of the traversing left S1 nerve root. Bilateral foramina are patent. IMPRESSION: 1. Moderate to severe dextr oscoliosis of the thoracolumbar spine with apex at L1-L2. Increased right lateral listhesis of the L3 on L4 compared to prior exam, as detailed above. Degenerative changes co ntributing to moderate spinal canal stenosis at L3-L4. 2. Degenerative changes con tributing to severe left neural foraminal narrowing at L2-L3 and impingement of the left exiting L2 nerve root. Moderate to severe left neural foraminal narrowing at L3-L4 wi th possible venous the left exiting L3 nerve root. Moderate right neural foraminal narrowing at L4-L5 with possible abutment of the right exiting L4 nerve root. 3. Bilateral facet arthropa thy at L4-L5 and L5-S1 contributing to impingement of traversing right L5 and S1 nerve roots respectively. 4. Evolving postoperative c hanges of the left sided decompression laminectomy at L3 and L4. Spine lumbar w/wo LUMBAR SPINE MRI WITH AND WITHOUT CONTRAST. [facility] contrast MRI TECHNIQUE: Sagittal T1, sagi ttal T2, sagittal STIR and axial T1/T2 images without contrast were obtained. Postcontrast sagittal T1 and axial T1 images were obtained after the administration of 16 cc of [place]. [place] FINDINGS: There is 21 degree s dextro scoliosis centered at L2-L3 with mild type I (fibrovascular or edematous) endplate changes in the left endplates. No additional evidence of infection/trauma. Right L 4-L5 laminotomy defect is no lupe, without evidence of arachnoiditis or paravertebral fluid collection. There is 2 to 3 mm grade 1 anterolisthesis of L3-L4 and L4-L5. 4 mm retrolisthesis of L1-L2 greater than L2-L3. The vertebrae are otherwise normal in shape, signal intensity and alignment. The intervertebral disks are desiccated with with mild height loss diffusely in the mid lumbar spine. The paravertebral musculatur e demonstrates moderate fatty atrophy in keeping with deconditioning. The conus medullaris terminates normally at the T12-L1 level. There is no intradural mass lesion. No abnormal epidural or nerve root enhancement seen. L1-L2: Right paracentral 4 m m disc extrusion extending 4 mm below the level disc with slight annular tearing, superimposed mild disc bulge asymmetric to the right exaggerated by the retrolisthesis, mode rate facet hypertrophy and m ild ligamentum flavum thickening. No significant stenosis. L2-L3: Left paracentral migr ated disc extrusion measuring up to 10 mm anterior posteriorly and extends 14 mm below the level of the disc, possibly transligamentous with subtle radial annular tearing, rogers perimposed moderate disc bul ge exaggerated by the retrolisthesis, moderate facet hypertrophy, and ligamentum flavum thickening. This results in severe left lateral recess narrowing below disc level with compression of the descendi ng left L3 nerve root. Mild canal and left neural foraminal stenosis. L3-L4: Mild to moderate disc bulge exaggerated by the anterolisthesis with moderate facet hypertrophy and ligamentum flavum thickening. 8 x 6 mm left facet synovial cyst also impresses on the thecal sac . This results in severe lef t greater than right canal and lateral recess narrowing with crowding of the nerve roots and complete to near complete CSF block. Slight nerve root redundancy is seen above a nd below this level. Mild left neural foraminal narrowing. L4-L5: Moderate disc bulge e xaggerated by the anterior listhesis with slight midline annular tearing and moderate facet hypertrophy with ligamentum flavum thickening. This results in moderate lateral re cess narrowing with slight d eformity of the descending L5 nerve roots. Right posterior and lateral epidural scarring is noted with minimal mass effect on the thecal sac. This is in contact with the desc ending right L5 nerve root, and may contribute to the deformity. Mild bilateral neural foraminal narrowing with scar additionally minimally encroaching on the right L4 nerve root. L5-S1: Minimal disc bulge an d moderate facet hypertrophy with extraforaminal disc osteophyte complexes measuring up to 7 mm causing displacement of the extraforaminal right L5 nerve root. Minimal left lateral recess. IMPRESSION: 1. Postoperative and degener ative changes as detailed above including multilevel disc herniations with migrated disc at L2-L3 causing compression of the descending left L3 nerve root. 2. Severe left greater than right canal stenosis at L3-L4 complete to near complete CSF block and nerve root redundancy. Additional lesser stenoses as detailed above. 3. Moderate dextroscoliosis with type I endplate changes at L2-L3. 4. Epidural scarring may con tribute to deformity of the descending right L4 nerve root. 5. Multilevel listhesis -- If there is clinical concern for instability, consider flexion-extension views. Knee wo contrast MRI Examination: MRI of the right knee with out contrast 05/10/2015 [facility] [place] History: M25.561 Pain in right knee Comparison: Plain films of t he right knee from 05/10/2015. MRI of the right knee from 11/08/2014. TECHNIQUE: Multiplanar, mult isequence magnetic resonance imaging of the right knee was performed without administration of intravenous gadolinium contrast. Findings: Intercondylar Notch: Severe mucoid degeneration of the ACL is noted. PCL is intact. Medial compartment: Joint sp isabel narrowing with minimal marginal osseous spurring is seen. Diffuse full-thickness cartilage loss with mild underlying cystic change throughout the weight-bearing portion o f the medial femoral condyle and medial tibial plateau is present and progressed since prior exam. Diminution throughout the medial meniscus body and posterior horn is seen, compatible with sequela of p rior partial meniscectomy. N o residual or recurrent tear is seen. MCL is intact. Lateral compartment: No meni scal tear is seen. Focal high-grade chondrosis of the posterior lateral tibial plateau is stable. No meniscal tear is seen. LCL complex is intact. Posterolateral corner structures are intact. Patellofemoral compartment: Low grade chondromalacia along the lateral patellar facet is again seen. Extensor mechanism: Quadriceps and patellar tend ons are intact. Other findings: Large joint effusion is seen. IMPRESSION: 1. Sequela of prior partial medial meniscectomy of the body and posterior horn without residual or recurrent tear. 2. Medial femorotibial ludwin rtment osteoarthrosis with high-grade chondromalacia of the medial femoral condyle and medial tibial plateau which is progressed since prior exam from 11/08/2014. 3. Focal high-grade chondrosis of the posterior lateral tibial plateau. 4. Low grade chondromalacia of the patellofemora l compartment. 5. Large joint effusion. 6. Severe mucoid degeneration of the ACL. SL: 16 Knee 4+ views Examination: Right knee, 4 views 05/10/2015 RACHELLE Meldrim unilateral DX History: M25.561 Pain in right knee Comparison: Plain films of the right knee from 0 10/27/2014 Findings: Multiple weight-be aring views of the right knee show severe medial femorotibial compartment osteoarthrosis with severe joint space narrowing and mild marginal osseous spurring. Large joint effusion is seen. IMPRESSION: Severe medial fe morotibial compartment osteoarthrosis of the right knee. SL: 16 Knee wo contrast MRI EXAM: MRI RIGHT KNEE WITHOUT CONTRAST 11/08 RACHELLE Clarke DATE: 2014-11-08 08:43:00 INDICATION: knee pain COMPARISON: Radiograph October 27, 2014 TECHNIQUE: Multiplanar noncontrast imaging of th e knee. FINDINGS: Menisci: Lateral meniscus: There is u ndersurface fraying of the posterior horn lateral meniscus. Medial meniscus: A complex, multidirectional tear of the medial meniscus is seen, including a near full thickness radial component involving the medial meniscal body. A horizontal tear of the posterior horn hyphen body junction is present, with extension to the tibial articular surface. There is degeneration and free edge fraying of the posterior horn medial meniscus. There is intrasubstance degenerat ion of the anterior horn med ial meniscus. . Mild extrusion of the medial meniscal body is noted. Ligaments: The ACL, PCL, med ial and lateral collateral ligaments, and the capsular ligaments are intact. Extensor mechanism: The quad riceps tendon, patella and the patellar tendon are intact. Muscles: No signal abnormality in the muscles. Cartilage: Patellofemoral compartment: There is fraying of the lateral patellar cartilage without focal full-thickness defect. Medial compartment: There is partial-thickness cartilage loss with cartilage fissuring throughout the weight-bearing surface. Lateral compartment: A focal 4 x 2 mm cartilage defect is seen along the lateral tibial plateau (series 401 image 22). Bone: No fractures identifie d. Visualized bone marrow signal is within normal limits. Soft tissue: Within normal l imits. No abnormality of the neurovascular structures. IMPRESSION: 1. Complex multidirectional tear of the medial meniscus body with near full- thickness radial tear component. 2. Partial-thickness cartila ge loss with cartilage fissuring throughout the weight-bearing surface of the medial compartment. 3. Focal 4 x 2 mm full thick ness cartilage defect of the lateral tibial plateau (series 401 image 22). 4. Fraying of the lateral patellar cartilage. Knee 4+ views EXAM: XR RIGHT KNEE 4 VIEWS 10/27/2014 O PID Vince unilateral DX DATE: 2014-10-27 14:52:00 INDICATION: 719.46 Pain in Joint Involving Lo wer Leg. COMPARISON: None available. TECHNIQUE: Weight bearing A P and PA radiographs of both knees, a sunrise and a lateral radiograph of the right knee FINDINGS: No excessive right knee join t fluid is identified. No acute fracture, malalignment or other acute bony abnormality is identified. The right knee demonstrates mild medial tibiofemoral compartment joint s pace narrowing. Mild right t ricompartmental and left medial and lateral compartment osteophyte formation is noted. Medial tibiofemoral compartment joint space narrowing is identified on the left with no appreciable bony remodeling. IMPRESSION: 1. Mild tricompartmental osteoarthrosis of the r ight knee. 2. Moderate osteoarthrosis o f the left knee medial compartment, partially evaluated. Knee wo contrast MRI EXAM: MRI LEFT KNEE WITHOUT CONTRAST 2013 ZULEYMA Clarke DATE: 2013-12-23 17:05:00 INDICATION: Left knee pain COMPARISON: Left knee MRI Ja nuary 2013 radiographs of left knee December 08, 2013. TECHNIQUE: Multiplanar noncontrast imaging of th e knee. FINDINGS: Menisci: Medial meniscus: There is di ffuse intrasubstance degeneration of the medial meniscus, with severe attenuation of the medial meniscus body which is partially extruded. Lateral meniscus: Degenerati ve changes of the posterior horn root ligament of the lateral meniscus are redemonstrated. There is mild intrameniscal degeneration of without tear Ligaments: The ACL, PCL, med ial and lateral collateral ligaments, and the capsular ligaments are intact. Extensor mechanism: The quad riceps tendon, patella and the patellar tendon are intact. Muscles: No signal abnormality in the muscles. Cartilage: Patellofemoral compartment: Cartilage thinning at the patellar apex and lateral patellar facet has slightly progressed in the interim, with small areas of greater than 50% cartilage loss now present. Th ere is fissuring of the medial facet and margins of the trochlea. Medial compartment: There is full-thickness cartilage loss at the medial aspect of the medial femoral condyle and adjacent medial tibial plateau. There is diffuse cartilage thinning and fraying at the remainder. Lateral compartment: There i s fraying and mild fissuring without large focal defect. Bone: No fractures identifie d. Subchondral edema is present in the medial aspect of the medial compartment. Soft tissue: There is a mode rate-sized joint effusion with synovitis. No abnormality of the neurovascular structures. IMPRESSION: 1. Extremely diminutive mid body of the medial meniscus which is partially extruded. Diffuse fraying and degeneration of the remainder. 2. Progression of chondromal acia within the medial compartment, with full- thickness cartilage loss at the medial aspect and no subchondral edema. Diffuse fraying of the remainder of the medial compartment. 3. Progression of patellar c hondromalacia, with greater than 50% cartilage loss at the patellar apex and portions of the lateral patellar facet. 4. Moderate joint effusion with synovitis. Knee 4+ views EXAM: LEFT KNEE 4 VIEWS 12/08/2013 RACHELLE Clarke unilateral DATE: Dec 08, 2013 02:46:00 PM INDICATION: knee pain. COMPARISON: Left knee series 07/09/2013. TECHNIQUE: Weight bearing A P and PA radiographs of both knees, a sunrise and a lateral radiograph of the left knee FINDINGS: No fracture, dislo cation or other acute bony abnormality is identified. There is moderate medial compartment narrowing and small marginal osteophytes. Small cyst in the medial aspect of the tr ochlea. Moderate amount of k nee joint fluid is present. No soft tissue abnormality is identified. IMPRESSION: 1. Moderate left knee osteoarthrosis, greatest i n the medial compartment. 2. Moderate left knee joint effusion. Knee wo contrast MRI EXAM: MRI LEFT KNEE WITHOUT CONTRAST 2013 RACHELLE Clarke DATE: Jul 09, 2013 02:57:00 PM INDICATION: knee pain COMPARISON: None TECHNIQUE: Multiplanar noncontrast imaging of th e knee was performed. FINDINGS: Menisci: There is maceration of the medial meniscus body. Medial meniscus anterior and posterior horns demonstrate mild intrameniscal degeneration. There is degenerative tearin g of the lateral meniscus posterior horn root ligament. There is mild intrameniscal degeneration of the anterior and posterior horns of the lateral meniscus without tear identified. Ligaments: The ACL, PCL, medial and lat eral collateral ligaments and the capsular ligaments are intact. Extensor mechanism: The quad riceps tendon, patella and the patellar tendon are intact. Muscles: No signal abnormality in the muscles. Cartilage: There is fissurin g of the articular cartilage at the patellar apex and lateral aspect of the lateral patellar facet. Cartilage thinning and fissu ring throughout the weight-bearing surface of the medial compartment. Mild subarticular marrow edema is present at the periphery of the medial tibial plateau. Focal cartilage fissuring is present at the posterior flexion z one medial femoral condyle. There is mild cartilage fiss uring at the posterior weight-bearing surface of the lateral compartment. Bone: No fractures identified. Soft tissue: Within normal l imits. No abnormality of the neurovascular structures. IMPRESSION: 1. Maceration of the medial meniscus body. 2. Degenerative tearing the lateral meniscus pos terior horn ligament. 3. Grade 3/4 chondromalacia of the medial compar tment weight-bearing surface. 4. Additional mild areas of cartilage fissuring in the patellofemoral and lateral compartments. Knee 4+ views EXAM: XR LEFT KNEE 4 VIEWS 07/09/2013 OP ID Vince unilateral DATE: 2013-07-09 12:03:00 INDICATION: 719.46 Pain in Joint Involving Low er Leg COMPARISON: None available TECHNIQUE: Four views of the left knee. FINDINGS: No fracture, dislo cation or other acute bony abnormality is identified. Mild joint space narrowing of the medial compartment is seen with small multicompartment osteophyte formation. There is a small joint effusion. No soft tissue abnormality is identified. IMPRESSION: 1. Mild osteoarthritis of th e left knee with mild medial compartment joint space loss. 2. Small left joint effusion Consultation Notes No Data Provided for This Section Discharge Summaries No Data Provided for This Section History and Physicals No Data Provided for This Section Vital Signs Vital Sign Value Date Comments Source BMI Calculated 26.66 08/20/2017 [facility] Weight 79.545 08/20/2017 [facility] Height 172.72 cm 08/20/2017 [facility] Heart Rate 108 08/20/2017 [facility] Temperature Oral (F) 97.7 F 08/20/2017 [facility] Systolic (mm Hg) 151 08/20/2017 [facility] Diastolic (mm Hg) 97 08/20/2017 [facility] Height 172.72 cm 07/09/2017 [facility] BMI Calculated 26.27 07/09/2017 [facility] Weight 78.381 07/09/2017 [facility] Heart Rate 114 07/09/2017 [facility] Systolic (mm Hg) 118 07/09/2017 [facility] Diastolic (mm Hg) 82 07/09/2017 [facility] BMI Calculated 26.51 06/06/2017 [facility] Weight 79.091 06/06/2017 [facility] Height 172.72 cm 06/06/2017 [facility] Heart Rate 112 06/06/2017 [facility] Temperature Oral (F) 98.1 F 06/06/2017 [facility] Systolic (mm Hg) 149 06/06/2017 [facility] Diastolic (mm Hg) 90 06/06/2017 [facility] BMI Calculated 26.66 05/29/2017 [facility] Weight 79.545 05/29/2017 [facility] Heart Rate 121 05/29/2017 [facility] Systolic (mm Hg) 145 05/29/2017 [facility] Diastolic (mm Hg) 75 05/29/2017 [facility] Height 172.72 cm 05/29/2017 [facility] Height 172.72 cm 05/20/2017 [facility] Systolic (mm Hg) 155 05/20/2017 [facility] Diastolic (mm Hg) 106 05/20/2017 [facility] Heart Rate 120 05/20/2017 [facility] BMI Calculated 26.66 04/29/2017 [facility] Height 172.72 cm 04/29/2017 [facility] Weight 79.545 04/29/2017 [facility] Systolic (mm Hg) 145 04/29/2017 [facility] Diastolic (mm Hg) 90 04/29/2017 [facility] Temperature Oral (F) 98.2 F 04/29/2017 [facility] BMI Calculated 25.83 04/26/2017 [facility] Weight 78.182 04/26/2017 [facility] Height 173.99 cm 04/26/2017 [facility] Temperature Oral (F) 98.5 F 04/26/2017 [facility] Heart Rate 112 04/26/2017 [facility] Systolic (mm Hg) 125 04/26/2017 [facility] Diastolic (mm Hg) 86 04/26/2017 [facility] Respitory Rate 19 08/14/2016 [facility] Systolic (mm Hg) 140 08/14/2016 [facility] Diastolic (mm Hg) 85 08/14/2016 [facility] Systolic (mm Hg) 143 08/14/2016 [facility] Diastolic (mm Hg) 88 08/14/2016 [facility] Respitory Rate 7 08/14/2016 [facility] Systolic (mm Hg) 158 08/14/2016 [facility] Diastolic (mm Hg) 91 08/14/2016 [facility] Respitory Rate 21 08/14/2016 [facility] Heart Rate 83 08/14/2016 [facility] Height 172.72 cm 08/14/2016 [facility] BMI Calculated 25.9 08/14/2016 [facility] Weight 77.273 08/14/2016 [facility] BMI Calculated 25.9 08/10/2016 [facility] Weight 77.273 08/10/2016 [facility] Height 172.72 cm 08/10/2016 [facility] Temperature Oral (F) 98.1 F 02/15/2016 [facility] Systolic (mm Hg) 157 02/15/2016 [facility] [place] Diastolic (mm Hg) 79 02/15/2016 [facility] Heart Rate 104 02/15/2016 [facility] Respitory Rate 17 02/15/2016 [facility] Systolic (mm Hg) 141 02/15/2016 [facility] Diastolic (mm Hg) 92 02/15/2016 [facility] Respitory Rate 19 02/15/2016 [facility] Heart Rate 95 02/15/2016 [facility] Temperature Oral (F) 98.1 F 02/15/2016 [facility] Temperature Oral (F) 98.2 F 02/15/2016 [facility] Systolic (mm Hg) 142 02/15/2016 [facility] [place] Diastolic (mm Hg) 92 02/15/2016 [facility] Respitory Rate 19 02/15/2016 [facility] Heart Rate 98 02/15/2016 [facility] Height 172.72 cm 2016 [facility] Weight 79.545 2016 [facility] BMI Calculated 26.66 2016 [facility] Height 172.72 cm 02/09/2016 [facility] BMI Calculated 26.66 02/09/2016 [facility] Weight 79.545 02/09/2016 [facility] Height 172.72 cm 12/02/2012 [facility] Weight 77.273 12/02/2012 [facility] Temperature Oral (F) 98.9 F 09/01/2011 [facility] Systolic (mm Hg) 129 09/01/2011 [facility] Heart Rate 91 09/01/2011 [facility] Respitory Rate 16 09/01/2011 [facility] Diastolic (mm Hg) 86 09/01/2011 [place] Diastolic (mm Hg) 66 08/31/2011 [place] Systolic (mm Hg) 112 08/31/2011 [facility] Respitory Rate 16 08/31/2011 [facility] Temperature Oral (F) 98.7 F 08/31/2011 [facility] Heart Rate 78 08/31/2011 [facility] Diastolic (mm Hg) 77 08/31/2011 [facility] Systolic (mm Hg) 123 08/31/2011 [facility] Respitory Rate 16 08/31/2011 [facility] Heart Rate 90 08/31/2011 [facility] Temperature Oral (F) 98.8 F 08/31/2011 [facility] Weight 80.256 08/24/2011 [facility] Height 175.26 cm 08/24/2011 [facility] Weight 79.545 06/12/2011 [facility] Height 175.26 cm 06/12/2011 [facility] y Encounters Location Location Encounter Encounter Reason Attending ADM DC Stat us Source Details Type Number For Provider Date Date Visit [facility] CAMRYN [id number] CHEN 06/12 06/12 Dischar g [facility] 0 ERICK ed [facility] Inpatient [id number] LAPEER 08/29 08/30 Disc harg [facility] 1 ERICK ed [facility] CAMRYN [id number] LAPEER 12/02 12/02 Dischar g [facility] 2 ERICK ed [facility] Outpt Diag [id number] Rajat 12/08 12/09 [facility] 2 [facility] Outpt Diag [id number] Rajat 12/23 12/24 [facility] 3 [facility] [place] [facility] Outpt Diag [id number] Rajat 10/27 10/28 [facility] 4 [facility] Outpt Diag [id number] Rajat 11/08 11/09 [facility] 5 [facility] Outpt Diag [id number] Rajat 05/10 05/11 [facility] 6 [facility] Outpatient [id number] PASHA GOLDSTEIN 02/13 [facility] Inpatient [id number] Pasha Goldstein 02/13 02/14 [facility] Outpatient [id number] TERESITA 02/28 Active [facility] 2 [facility] Outpatient [id number] PASHA GOLDSTEIN 04/23 Acti ve [facility] Outpt Diag [id number] Kan 07/28 07/29 [facility] 8 Андрей [facility] Outpatient [id number] PASHA GOLDSTEIN 08/06 Acti ve [facility] [place] Outpatient [id number] PASHA GOLDSTEIN 08/14 Acti ve [facility] [id number] Pasha Goldstein 08/14 08/15 [facility] Outpatient [id number] TERESITA 08/27 Active [facility] 6 [facility] Outpatient [id number] PASHA GOLDSTEIN 11/07 Acti ve [facility] [place] Outpatient [id number] PASHA GOLDSTEIN 01/30 Acti ve [facility] Outpt Diag [id number] Pasha Goldstein 04/06 04/07 [facility] Outpatient [id number] PASHA GLODSTEIN 04/26 Acti ve [facility] [place] [facility]patient [id number] Pasha Goldstein 04/26 04/27 [facility] Neuro Outpatient [id number] COLLINS LÓPEZ 04/29 Acti ve [facility] Outpatient [id number] Collins López 04/29 04/30 [facility] Neuro HS Outpt Diag [id number] Collins López 05/14 05/15 [facility] Outpatient [facility] Outpatient [id number] Collins López 05/14 05/15 [facility] Outpatient [id number] VIVIANA 05/20 [facility] Outpatient [id number] Pasha Goldstein 05/20 05/21 [facility] Neuro Outpatient [id number] VIVIANA 05/21 [facility] Outpatient [id number] Pasha Goldstein 05/21 05/22 [facility] Neuro [facility] Spine Phone [id number] 05/23 05/25 [facility] Message Neuro M[facility] Spine Phone [id number] 05/28 05/30 [facility] Message Neuro Outpatient [id number] VIVIANA 05/29 [facility] [place] [facility] Outpatient [id number] Pasha Goldstein 05/29 05/30 [facility] Neuro Outpatient [id number] COLLINS LÓPEZ 06/06 [facility] [place] [facility] Outpatient [id number] Pasha Goldstein 06/06 06/07 [facility] Neuro Outpatient [id number] VIVIANA 06/11 [facility] [place] [facility] Ambulatory [id number] Viviana 06/11 06/11 [facility] Pre-Reg 6 Neur o Outpatient [id number] VIVIANA 06/12 [facility] [place] [facility] [id number] Viviana 06/12 06/12 [facility] Pre-Reg 5 Neur o MNA Spine Phone [id number] 06/12 06/14 [facility] Message Neuro Outpatient [id number] VIVIANA 06/13 [facility] Ambulatory [id number] Viviana 06/13 06/13 [facility] Pre-Reg 9 Neur o Outpatient [id number] VIVIANA 06/18 [facility] 0 [place] [facility] Outpatient [id number] Pasha Goldstein 06/18 06/19 [facility] Neuro Outpatient [id number] VIVIANA 07/03 [facility] 2 [facility] MNA Phone [id number] 07/03 07/05 [facility] Neurosurger Message Neur o y [facility] Outpatient [id number] 07/04 [facility] 1 [place] [facility] Ambulatory [id number] Viviana07/04 [facility] Pre-Reg 1 Neur o Outpatient [id number] VIVIANA07/08 [facility] Outpatient [id number] 07/08 [facility] Phone [id number] 07/08 07/10 [facility] Message Neuro [facility] Sp[facility] Ambulatory [id number] Viviana07/08 [facility] Pre-Reg 5 Neur o M[facility] Spine Ambulatory [id number] Viviana07/08 [facility] Pre-Reg 3 Neur o Outpatient [id number] VIVIANA07/09 [facility] 6 [place] Outpatient [id number] 07/09 [facility] Outpatient [id number] Pasha Goldstein 07/09 07/10 [facility] Neuro MNA Spine Ambulatory [id number] Viviana 07/09 07/09 [facility] Pre-Reg 4 Neur o [facility] Ambulatory [id number] Kala07/10 [facility] Pre-Reg 8 [facility] Outpatient [id number] VIVIANA 07/11 [facility] Ambulatory [id number] Viviana 07/11 07/11 [facility] Pre-Reg 7 Neur o MNA Spine Phone [id number] 07/11 07/13 [facility] Message Neuro Outpatient [id number] VIVIANA 07/18 [facility] 8 [place] [facility] Outpatient [id number] Pasha Goldstein 07/18 07/19 [facility] Neuro MNA Spine Phone [id number] 07/22 07/24 [facility] Message Neuro MNA Spine Phone [id number] 07/26 07/28 [facility] Message Neuro MNA Spine Phone [id number] 08/07 08/09 [facility] Message Neuro Outpatient [id number] COLLINS LÓPEZ 08/08 [facility] [place] [facility] Ambulatory [id number] Collins López 08/08 08/08 [facility] Pre-Reg Neuro MNA Spine Phone [id number] 08/14 08/16 [facility] Message Neuro [facility] Outpt Diag [id number] Collins López 08/19 08/20 [facility] Outpatient [id number] COLLINS LÓPEZ 08/20 [facility] Outpatient [id number] Pasha Goldstein 08/20 08/21 [facility] Neuro MNA Spine Phone [id number] 09/25 09/27 [facility] Message Neuro Procedures Procedure Code Date Perfomer Comments Source Injection(s), 91372 07/18/19 [facility] [place] agent 18 Neuro and/or steroid, transforaminal epidural, with imaging guidance (fluoroscopy or CT); lumbar or sacral, single level Epidural steroid [id number] 07/09/19 [facility] at [facility] injection<sup>1</sup 18 L5/S1 #2 Grou p,Mische > [facility] [id number] [facility]21[facility]20 Bilateral Medic al injection<sup>2</sup 17 transforaminal Group,Mische > epidural steroid r Neuro, injection L5-S1 [facility] [place] Microdiscectomy [id number] 08/15/19 Medica l 17 Group,Mische r Neuro, [facility] [place], OPID [facility], [facility] [place] Cervical discectomy [id number] 02/14/20 [facility] dical 16 Group,Mische r Neuro,[facility], [facility] [place],[facility], [facility] [place] Miscellaneous [id number] 08/30/19 fistula repair and Mis neena operations<sup>2</rogers 12 hernia repair N euro,MH p> [facility], [facility] [place],[facility], [facility] [place] Miscellaneous [id number] 08/30/19 fistula repair and Medical operations<sup>3</rogers 12 hernia repair G roup,Mische p> r Neuro,[facility], [facility] [place],[facility], [facility] [place] Miscellaneous [id number] 08/30/19 fistula repair and Mis neena operations<sup>1</rogers 12 hernia repair N euro, p> [facility], [facility] [place],[facility], [facility] [place] Miscellaneous [id number] 08/30/[address] [facility] orial operations 12 and hernia repair [facility] <sup>1</sup> Arthroscopy of knee [id number] [facility] dical Group,Mische r Neuro,[facility], RACHELLE Clarke,[facility], [facility] [place] Hysterectomy [id number] Medical Group,Mische r Neuro,[facility], OPIShannon Clarke,[facility], [facility] [place] Miscellaneous [id number] fusion right foot [facility] edical operations<sup>4</rogers Grou p,Mische p> r Neuro, [facility] [place] Jah-en-y gastric [id number] 2000 [facility] bypass<sup>5</sup> Neuro Jah-en-y gastric [id number] 2000 [place]ischer bypass<sup>4</sup> Neuro, [facility], [facility]annon Clarke,[facility], [facility] [place] Miscellaneous [id number] bladder suspension Medical operations<sup>5</rogers Grou p,Mische p> r Neuro, [facility] [place] Jah-en-y gastric [id number] 2000 Medi thiago bypass<sup>6</sup> Group, Mische r Neuro, [facility] [place] Arthroscopy of knee [id number] [facility] Hysterectomy [id number] [facility] Miscellaneous [id number] 2bladder [facility] <sup>2</sup> Miscellaneous [id number] 3fusion right foot [facility] <sup>3</sup> Jah-en-y gastric [id number] 70122 [facility] ria bypass <sup>4</sup> [facility] Assessment and Plan No Data Provided for This Section Plan of Care No Data Provided for This Section Social History Social History Date Source Social History TypeResponse 05/20/2017 [facility] o Alcohol Current, Type Wine. Frequency: Daily. Previous treatment: None. Smoking Status Never smoker; Type: Cigars; Exposure to Tobacco Smoke None; Cigarette Smoking Last 365 Days No; Reg Smoking Cessation Counseling No entered on: 08/20/17 Social History TypeResponse 05/20/2017 Medical G roup Alcohol Current, Type Wine. Frequency: Daily. Previous treatment: None. Smoking Status Never smoker; Type: Cigars; Exposure to Tobacco Smoke None; Cigarette Smoking Last 365 Days No; Reg Smoking Cessation Counseling No entered on: 08/20/17 Social History TypeResponse 05/20/2017 [facility] [place] Alcohol Current, Type Wine. Frequency: Daily. Previous treatment: None. Smoking Status Never smoker; Type: Cigars; Exposure to Tobacco Smoke None; Cigarette Smoking Last 365 Days No; Reg Smoking Cessation Counseling No entered on: 08/20/17 Social History TypeResponse 04/29/2017 RACHELLE [facility] Alcohol Current, Type Wine. Frequency: Daily. Previous treatment: None. Smoking Status Never smoker; Type: Cigars; Exposure to Tobacco Smoke None; Cigarette Smoking Last 365 Days No; Reg Smoking Cessation Counseling No Social History TypeResponse 01/30/2017 [facility] Smoking Status Never smoker; Type: Cigars; Exposure to Tobacco Smoke None; Cigarette Smoking Last 365 Days No; Reg Smoking Cessation Counseling No Social History TypeResponse 08/14/2016 [facility] Smoking Status Never smoker; Type: Cigarettes; Exposure to Tobacco Smoke None; Cigarette Smoking Last 365 Days No; Reg Smoking Cessation Counseling No Family History No Data Provided for This Section Advance Directives No Data Provided for This Section Functional Status No Data Provided for This Section
--- OUTSIDE RECORDS SUMMARY | 2020-02-15 12:49 | XMS REPORT | Continuity of Care Document ---
:1960 Author Organization [facility] t Address [address] Chandra. [address] [place] [id number] Care Team Providers Name Role Phone Andreina DILLON Primary Care Physician Dale DILLON, H. Attending Clinician Gerda Potter Attending Clinician Waylon MALONE Attending Clinician Unavailable Judi COLE Attending Clinician Unavailable Gerson Grubbs MD Attending Clinician Radha Verma NP Attending Clinician Doyle CHENG Attending Clinician Jaya MALONE Attending Clinician Unavailable Provider Attending Clinician Unavailable Mason Saucedo MD Attending Clinician Holly Pace NP Attending Clinician Sonali DILLON Attending Clinician Keon MALONE Attending Clinician Unavailable Aziza Goldstein Attending Clinician She Le Attending Clinician Jessica Douglas Attending Clinician Melissa Angel Attending Clinician Ulysses Chiang Jr Attending Clinician Darci Anaya Jr Attending Clinician LEV Admitting Clinician Unavailable Aziza Goldstein Admitting Clinician Payers Payer Name Policy Type Policy Number Effective Date Expiration Date Eleno sanchez AETNAAETNA [facility]x [facility] [employer] MC/[id number]-Present HMO Problems Condition Condition Condition Status Onset Resolution Last Treating Co mments Source Name Details Category Date Date Treatment Clinician Date Kyphosis Kyphosis Disease Active Overview: [place] 6-10 Added Methodi 00:00: automatic st 00 ally from request for surgery [id number] Scoliosis Scoliosis Disease Active 2018-06 Sandeep ston 0-30 Methodi 00:00: st 00 Long-term Long-term Disease Active Sandeep ston current current 9-30 Methodi use of use of 00:00: st opiate opiate 00 analgesic analgesic Lumbar Lumbar Disease Active [place] radicular radicular 9-30 Meth maria elena pain pain 00:00: st 00 Lumbar Lumbar Disease Active [place] disc disc 9-30 Methodi disease disease 00:00: st 00 Back pain Back pain Disease Active Sandeep ston 6-17 Methodi 00:00: st 00 Myositis Myositis Disease Active [place] 6-17 Methodi 00:00: st 00 Multiple Multiple Disease Active [place] rib rib 4-12 Methodi fractures fractures 00:00: st 00 LUMBAR Diagnosis Active 2016-08-14 Mem oria HERNIATED 2-27 07:03:00 l DISC LUMBAR 00:00: [place] HERNIATED 00 DISC Active 08/06/2016 [facility] M54.16 - Diagnosis Active 2015-062016-05-19 M emoria "RADICULOP 0-24 16:22:00 l ATHY, M54.16 - 00:01: Tomy macias LUMBAR "RADICULOP 00 REGION" ATHY, LUMBAR REGION" Active 04/02/2016 [facility] [place] HERNIATED Diagnosis Active 2016-08-28 Memoria DISCS 8-24 18:04:00 l 00:00: [place] HERNIATED 00 DISCS Active 02/01/2016 [facility] Right knee Right knee Disease Active H je[place] pain pain 7-26 Methodi 00:00: st 00 Chronic Chronic Disease Active [place] pain pain 6-20 Method[facility] syndrome syndrome 00:00: st 00 Sjogren's Sjogren's Disease Active Sandeep ston syndrome syndrome 6-20 Method i 00:00: st 00 Pain of Pain of Disease Active [place] upper upper 6-20 Methodi abdomen abdomen 00:00: st 00 Alcohol Alcohol Disease Active Overview: [email or web address] ton abuse abuse 6-20 She is Methodi 00:00: drinking st to self medicate and sleep Anemia Anemia Disease Active [place] 2- Methodi 00:00: st 00 Aneurysm Aneurysm Disease Active [place] of splenic of splenic 2- Me thodi artery artery 00:00: st 00 Ankylosing Ankylosing Disease Active H [place] spondyliti spondyliti 2-11 Me thodi s of s of 00:00: st multiple multiple 00 sites in sites in spine spine Anxiety Anxiety Disease Active [place] disorder disorder 2-11 Method i 00:00: st 00 Overactive Overactive Disease Active H [place] bladder bladder 2- Methodi 00:00: st 00 Depression Depression Disease Active Overview : [place] 2-11 Depressiv Methodi 00:00: e st 00 disorder - well controlle d on cymbalta Endometrio Endometrio Disease Active [place] sis sis 2-11 Methodi 00:00: st 00 Essential Essential Disease Active Sandeep ston hypertensi hypertensi 2-11 Me thodi on on 00:00: st 00 Gastroesop Gastroesop Disease Active H [place] hageal hageal 2-11 Methodi reflux reflux 00:00: st disease disease 00 History of History of Disease Active Overview : [place] colitis colitis 2-11 History Methodi 00:00: of st 00 colitis - related to Ankylosin g Spondylit its Insomnia Insomnia Disease Active [place] 2 Methodi 00:00: st 00 Non morbid Non morbid Disease Active Overview : [place] obesity obesity 2-11 Obesity - Metho di due to due to 00:00: [address] excess excess 00 prior to calories calories gastric bypass Osteoarthr Osteoarthr Disease Active [place] itis itis 2-11 Methodi 00:00: st 00 Rheumatoid Rheumatoid Disease Active 2016- [place] arthritis arthritis 2-11 Meth maria elena 00:00: st 00 M25.561 - Diagnosis Active 2014-062015-05-17 Memoria PAIN IN -20 12:44:00 l RIGHT KNEE M25.561 00:01: Her felder - PAIN IN 00 RIGHT KNEE Active 04/29/2015 [facility] [place] GERD,[id number] Diagnosis Active 2012-12-02 Memoria 6-20 10:06:00 l 00:00: Vince GERD,[id number] 00 Active 11/27/2012 [facility] GASTROGAST Diagnosis Active 2011-08-30 Memoria DWIGHT 3-14 15:24:00 l FISTULA 00:00: Vince GASTROGAST 00 DWIGHT FISTULA Active 08/22/2011 [facility] Anxiety Problem Active 2017-11-26 Teofilo osiris (finding) 06-10 13:22:41 l Anxiety 00:00: Vince (finding) 00 Active 06/10/2011 Problem 11/26/2017 Medical Group,Misc her Neuro,[facility], [facility]HELLE Clarke[facility], [facility] [place] Anxiety Problem Active 2012-12-04 Teofilo osiris - 20:55:13 l Anxiety 00:00: [place] 00 Active 06/10/2011 Problem 12/04/2012 RACHELLE Clarke,[facility] GERD Diagnosis Active 2010-062011-06-12 Mem oria 530.11 09:55:00 l GERD 00:00: Vince 530.11 00 Active 06/07/2011 [facility] Scoliosis, Problem 2017-11-25 M emoria unspecifie 14:11:46 l d [place] Scoliosis, unspecifie d 11/25/2017 [facility] [place] Low back Problem 2017-11-25 Mem oria pain 14:11:46 l Low back Tomy n pain 8 [facility] [place] Radiculopa Problem 2017-11-25 M emoria thy, 14:11:46 l lumbar [place] region Radiculopa thy, lumbar region 11/25/2017 RACHELLE Keith Other Problem 2017-11-25 Memor ia specified 14:11:46 l disorders Other Tomy n of bone specified density disorders and of bone structure, density other site and structure, other site 11/25/2017 [facility] Ankylosing Problem Resolve 2012-12-04 Memoria spondyliti d 20:55:13 l s [place] Ankylosing spondyliti s Resolved Problem 12/04/2012 [facility] Endometrio Problem Resolve 2012-12-04 Memoria sis d 20:55:13 l [place] Endometrio sis Resolved Problem 12/04/2012 [facility] Abdominal Problem Active 2017-11-26 Me moria pain 13:22:41 l (finding) Vince Abdominal pain (finding) Active Problem 11/26/2017 Medical Group,[facility] her Neuro,[facility], OPIShannon Clarke,[facility], [facility] [place] History of Problem Active 2017-11-26 M emoria - 13:22:41 l arthrodesi History Her felder s of - (context-d arthrodesi ependent s category) (context-d ependent category) Active Problem 11/26/2017 Medical Group,[facility] her Neuro,[facility], OPIShannon Clarke,[facility], [facility] [place] Hypertensi Problem Active 2017-11-26 M emoria ve 13:22:41 l disorder, [place] systemic Hypertensi arterial ve (disorder) disorder, systemic arterial (disorder) Active Problem 11/26/2017 Medical Group,[facility] her Neuro,[facility], RACHELLE Clarke, [facility], [facility] [place] Pain Problem Active 2017-11-26 Memor ia (finding) 13:22:41 l Pain [place] (finding) Active Problem 11/26/2017 [facility] her Neuro,[facility], OPID Vince,[facility], [facility] [place] Prolapsed Problem Active 2017-11-26 Me moria lumbar 13:22:41 l interverte Tomy n bral disc Prolapsed (disorder) lumbar interverte bral disc (disorder) Active Problem 11/26/2017 Medical Group,[facility] her Neuro,[facility], OPID Vince,[facility], [facility] [place] Rectal Problem Active 2017-11-26 Memor ia hemorrhage 13:22:41 l (disorder) Rectal Herm cielo hemorrhage (disorder) Active Problem 11/26/2017 [facility] her Neuro,[facility], OPID Vince[facility], [facility] [place] Reflux Problem Active 2017-11-26 Memor ia (finding) 13:22:41 l Reflux [place] (finding) Active Problem 11/26/2017 [facility] her Neuro,[facility], OPID Vince,[facility], [facility] [place] Reflux Problem Active 2012-12-04 Memor ia 20:55:13 l Reflux Vince Active Problem 12/04/2012 [facility] Vince,[facility] Abdominal Problem Active 2012-12-04 Me moria pain 20:55:13 l [place] Abdominal pain Active Problem 12/04/2012 [facility] Depression Problem Active 2012-12-04 M emoria 20:55:13 l Vince Depression Active Problem 12/04/2012 [facility] Pain Problem Active 2012-12-04 Memor ia 20:55:13 l Pain Vince Active Problem 12/04/2012 [facility] Clarke,[facility] Rectal Problem Active 2012-12-04 Memor ia bleeding 20:55:13 l Rectal [place] bleeding Active Problem 12/04/2012 [facility] Rheumatoid Problem Active 2012-12-04 M emoria arthritis 20:55:13 l [place] Rheumatoid arthritis Active Problem 12/04/2012 [facility] ADMINISTRT Diagnosis Active 2011-08-30 Memoria VE ENCOUNT 15:24:00 l NOS Vince ADMINISTRT VE ENCOUNT NOS Active [facility] 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 Dolores 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 [facility] Sacrococcy Problem 2018-0 2017-11-25 2017-11-25 Memoria geal 3-17 14:11:46 14:11:46 l disorders, 04:39: Tomy n not Sacrococcy 49 elsewhere geal classified disorders, not elsewhere classified 08/24/2017 11/25/2017 [facility] Allergies, Adverse Reactions, Alerts Allergy Allergy Status Severity Reaction(s) Onset Inactive Treating Comm ents Source Name Type Date Date Clinician No Known DA Active U 2018- [facility] [place] [facility] No Known DA Active U [facility]ie 6-15 [place] [facility] NKFA NKFA Active [facility] Clarke Family History Family Member Diagnosis Comments Start Date Stop Date Source Natural father Arthritis [place] [facility] Natural father Hypertension [facility] Natural mother Arthritis [place] [facility] Natural mother Hypertension [facility] Social History Social Habit Start Date Stop Date Quantity Comments Source Sex Assigned At F [place] [facility] Alcohol intake 2019-12-18 2019-12-18 Ex-drinker [facility] thodist 00:00:00 00:00:00 (finding) Alcohol Comment 2019-12-07 2019-12-07 5-7 per week [facility] 00:00:00 00:00:00 Social History 2017-04-29 2017-04-29 [facility] shruti 16:25:18 16:25:18 Smoking Status Start Date Stop Date Source Never smoker [facility] Medications Ordered Filled Start Stop Current Ordering Indication Dosage Frequency Signature Comments Components Source Medication Medication Date Date Medication? Clinician (SIG) Name Name multivitami 2020-0 Yes 1{tbl} QD Take 1 [place] with 8-06 tablet by Methodi minerals 14:06: mouth st tablet 50 daily. cholecalcif 2020-0 Yes 1000U Q7D Take 1,000 Rich ke, 8-06 Units by Methodi vitamin D3, 14:06: mouth once st (VITAMIN 50 a week. D3) 1,000 unit capsule leflunomide 2020-0 Yes 10mg QD Take 10 mg Irch (ARAVA) 10 8-06 by mouth Metho di MG tablet 14:06: every st 50 morning. omeprazole 2020-0 Yes 20mg QD Take 20 mg H je[place] (PriLOSEC) 8-06 by mouth Metho di 20 MG 14:06: daily. st capsule 50 inFLIXimab 2020-0 Yes Q30D Infuse [place] (REMICADE) 8-06 into a Methodi 100 mg 14:06: venous st injection 50 catheter every 30 (thirty) days. clonAZEPAM 2020-0 Yes .5mg QD Take 0.5 Sandeep ston (KlonoPIN) 8-06 mg by Methodi 0.5 MG 14:06: mouth st tablet 50 nightly as needed for anxiety or seizures. atenoloL 2020-0 Yes 50mg QD Take 50 mg Sandeep ston (TENORMIN) 8-06 by mouth Metho di 50 MG 14:06: daily. st tablet 50 oxyCODone-a 2020-0 Yes chronic 1{tbl} Q6H Take 1 [place] cetaminophe 8-06 pain tablet by [facility] hodi n 00:00: mouth st (PERCOCET) 00 every 6 10-325 mg (six) per tablet hours as needed for moderate pain for up to 30 days .chronic pain. Max Daily Amount: 4 tablets pregabalin 2020-0 2020- Yes 100mg Q.[id number] Take 1 [place] (LYRICA) 8 11-04 [id number] capsule M ethodi 100 MG 00:00: 23:59 3D ([address] capsule 00 :00 total) by mouth 3 (three) times a day for 90 days. methocarbam 2020-0 2020- No 500mg Q.25D Take 1 [place] oL 8 09-05 tablet Methodi (Robaxin) 00:00: 23:59 ([address] 500 MG 00 :00 total) by tablet mouth 4 (four) times a day for 30 days. oxyCODone-a 2020-0 2020- No chronic 1{tbl} Q4H Take 1 [place] cetaminophe 7-20 08-06 pain tablet by Md thodi n 00:00: 00:[address] (PERCOCET) 00 :00 every 4 10-325 mg (four) per tablet hours as needed for moderate pain for up to 30 days .chronic pain. methocarbam 2020-0 2020- No 500mg Q.25D Take 1 [place] oL 7-20 08-03 tablet Methodi (ROBAXIN) 00:00: 23:59 ([address] 500 MG 00 :00 total) by tablet mouth 4 (four) times a day for 14 days. acetaminoph 2020-0 2020- No 500mg Q6H Take 500 Rich en 7-12 07-12 mg by Methodi (TYLENOL) 13:11: 00:[address] 500 MG 52 :00 every 6 tablet (six) hours as needed for mild pain. diphenhydra 2019- No 2{tbl} QD 2 tablets Rich mine-acetam 12-19-12 nightly as M ethodi inophen 13:11: 00:[address] (TYLENOL PM 52 :00 EXTRA STRENGTH) 25-500 mg tablet pregabalin 2019- No 100mg Q.[id number] Take 1 Rich (LYRICA) 12-19 08-06 [id number] capsule M ethodi 100 MG 00:00: 00:00 3D ([address] capsule 00 :00 total) by mouth 3 (three) times a day for 30 days. sennosides- 2019- No 2{tbl} Q.5D Take 2 [place] docusate 12-19-26 tablets by Meth maria elena sodium 00:00: 23:[address] (Senna with 00 :00 (two) Docusate times a Sodium) day for 14 8.6-50 mg days. per tablet methocarbam 2019- No 500mg Q.25D Take 1 [place] oL 12-19-20 tablet Methodi (ROBAXIN) 00:00: 00:00 ([address] 500 MG 00 :00 total) by tablet mouth 4 (four) times a day for 14 days. naltrexone 2019- No Q24H Take by Sandeep rubens HCl 12-06 06-29 mouth Methodi (NALTREXONE 15:48: 00:00 daily as s t ORAL) 16 :00 needed. pregabalin 2019- No TAKE 1 [place] (LYRICA) 4-27 - CAPSULE BY Meth maria elena 100 MG 00:00: 00:[address] capsule 00 :00 THREE TIMES DAILY traMADoL 2019- No acute pain 50mg Q8H Take 1 Rich (ULTRAM) 50 2-24 03-25 tablet (50 M ethodi mg tablet 00:00: 23:59 mg total) st 00 :00 by mouth every 8 (eight) hours as needed for moderate pain for up to 30 days .acute pain. pregabalin 2019- No TAKE 1 [place] (LYRICA) 1-14 -27 TABLET BY Metho di 100 MG 00:00: 00:[address] capsule 00 :00 THREE TIMES DAILY methocarbam 2018-06- No 500mg Q.[id number] Take 1 Rich ol 2-17 06-25 [id number] tablet Method i (ROBAXIN) 00:00: 23:59 3D ([address] 500 MG 00 :00 total) by tablet mouth 3 (three) times a day for 30 days. gabapentin 2018-06- No 300mg Q.5D Take 1 Sandeep ston (NEURONTIN) 07-19 capsule Meth maria elena 300 mg 00:00: 00:00 ([address] capsule 00 :00 total) by mouth 2 (two) times a day. predniSONE 2018-06- No 30mg Take 3 [place] (DELTASONE) 06-13 11-10 tablets Meth maria elena 10 mg 00:00: 23:59 ([address] tablet 00 :00 total) by mouth See Admin Instructio ns for 6 days. 3 tabs daily x 2 days, then 2 tabs daily x 2 days, then 1 tab daily oxyCODone-a 2018-06- TK ONE T [place] cetaminophe 06-12 PO Q 4 TO Md dave n 00:00: 00:[address] (PERCOCET) 00 :00 10-325 mg per tablet methocarbam 2018-06- No 500mg Q.25D Take 1 [place] ol 06-12 tablet Methodi (ROBAXIN) 00:00: 23:59 ([address] 500 MG 00 :00 total) by tablet mouth 4 (four) times a day for 30 days. losartan 2018-06 Yes 100mg QD Take 100 [place] (COZAAR) 0-17 mg by Methodi 100 MG 00:00: mouth st tablet 00 daily. mirtazapine 2018-06 Yes 7.5mg QD Take 7.5 [place] (REMERON) 0-17 mg by Methodi 7.5 MG 00:00: mouth st tablet 00 nightly. HYDROcodone 2018- No acute pain 1{tbl} Q.25D Take 1 Rich -acetaminop 03-09 tablet by Md dave mcleod (NORCO) 16:32: 00:[address] 5-325 mg 26 :00 (four) per tablet times a day .Acute Pain. pregabalin 2019-0 2020- No 100mg Q.[id number] Take 1 Rich (LYRICA) 03-09-14 [id number] capsule M ethodi 100 MG 00:00: 00:00 3D ([address] capsule 00 :00 total) by mouth 3 (three) times a day. HYDROcodone 2019- No chronic 1{tbl} Q.25D Take 1 Rich -acetaminop 03-09 11-03 pain tablet by Me acosta hen (NORCO) 00:00: 00:[address] 5-325 mg 00 :00 (four) per tablet times a day for 90 days .Acute Pain, chronic pain. Max Daily Amount: 4 tablets pregabalin 2019- No TAKE 1 [place] (LYRICA) 03-03 CAPSULE BY Meth maria elena 100 MG 00:00: 00:[address] capsule 00 :00 THREE TIMES DAILY pregabalin 2019- No 100mg Q.[id number] Take 1 Rich (LYRICA) 03-02 [id number] capsule M ethodi 100 MG 00:00: 00:00 3D ([address] capsule 00 :00 total) by mouth 3 (three) times a day for 30 days. mirtazapine 2019- No 15mg QD Take 15 mg Rich (REMERON) 02-26 by mouth Metho di 15 MG 00:00: 00:[address] tablet 00 :00 pregabalin 2019- No 100mg Q.[id number] Take 1 Rich (LYRICA) 12-03 [id number] capsule M ethodi 100 MG 00:00: 00:00 3D ([address] capsule 00 :00 total) by mouth 3 (three) times a day for 90 days. DULoxetine 2018- Yes TAKE 1 [place] (CYMBALTA) 6-21 CAPSULE BY Met hodi 60 MG 00:00: MOUTH st capsule 00 EVERY DAY HYDROcodone 2018- 2019- No 1{tbl} Q6H Take 1 [place] -acetaminop 6-17 09-15 tablet by Me rennerodi hen (NORCO) 00:00: 23:[address] 5-325 mg 00 :00 every 6 per tablet (six) hours as needed for moderate pain for up to 90 days. promethazin 2019- No TK 1 T PO Rich e 5-31 10-15 Q 6 H PRF Methodi (PHENERGAN) 00:00: 00:[address] 12.5 MG 00 :00 tablet hydroxychlo 2019- No [place] roquine 5-28 07-12 Methodi (PLAQUENIL) 00:00: 00:00 st 200 mg 00 :00 tablet hydroCHLORO Yes TAKE 1 [place] thiazide 4-25 TABLET BY Method i (HYDRODIURI 00:00: MOUTH st L) 25 MG 00 EVERY DAY tablet losartan 2017-06 Yes TAKE 1 Rich (COZAAR) 50 2-27 TABLET BY Met hodi MG tablet 00:00: MOUTH 1 st 00 TIME DAILY. abaloparati 2017-06 Yes QD every [place] de (TYMLOS) 2-13 evening. Meth maria elena 80 mcg 00:00: st (3,120 00 mcg/1.56 mL) pen injector predniSONE Yes 10mg QD Take 10 mg [place] (DELTASONE) 4-06 by mouth Meth maria elena 10 mg 00:00: every st tablet 00 morning. pregabalin Yes 100 mg = 2 M emoria 50 MG Oral 1-31 cap, PO, l Capsule 14:03: TID, # 180 Herm cielo [Lyrica] 00 cap, 2 Refill(s), called to pharmacy pregabalin No 100 mg = 2 M emoria 50 MG Oral 1-30 cap, PO, l Capsule 20:59: TID, # 180 Herm cielo [Lyrica] 00 cap, 1 Refill(s), called to pharmacy Acetaminoph 2016-06 Yes 1 - 2 tab, Memoria en 300 MG / 2-28 PO, Q6H, l Codeine 20:39: PRN Pain, Dolores nn Phosphate 00 X 4 day, # 30 MG Oral 90 tab, 0 Tablet Refill(s), [Tylenol called to with pharmacy Codeine #3] pregabalin 2016-06 Yes 2 caps, Teofilo osiris 50 MG Oral 2-20 PO, BID, # l Capsule 20:01: 120 Vince [Lyrica] 53 caplet, 2 Refill(s), called to pharmacy duloxetine 2016-06 Yes 30 mg = 1 Me moria 30 MG 2-20 cap, PO, l Enteric 20:01: Daily, # Tomy n Coated 00 30 cap, 1 Capsule Refill(s), [Cymbalta] Pharmacy: [facility] [id number] Acetaminoph 2016-06 Yes 1 tab, PO, Memoria en 325 MG / 1-20 Q6H, PRN l Hydrocodone 16:26: for pain, H [place] Bitartrate 00 # 24 tab, 10 MG Oral 0 Tablet Refill(s) [Spencer 10/325] Ondansetron No Notes: Teofilo osiris 08-14 (Same as: l 18:29: Zofran) MEDICATION WASTE Product Size: 4 mg Product Wasted: ___ mg Oxycodone No Notes: Memori a 08-14 (Same as: l 18:29: Roxicodone ) Labetalol No 10 mg, 2 Teofilo osiris 08-14 mL, Route: l 18:29: IVP, Drug form: INJ, Q5Min, Dosing Weight 77.273, kg, PRN Elevated BP, Start date: 08/14/16 12:29: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, Duration: 5 doses or times, Stop date: Limited # of times Naloxone No Notes: Memoria 08-14 Same as l 18:29: Narcan Flumazenil No Notes: Memor ia 08-14 (Same as: l 18:29: Romazicon) Hydromorpho No Notes: Teofilo osiris ne 08-14 Same as: l 18:29: Dilaudid Acetaminoph Yes 1 tab, PO, Memoria en 325 MG / 3-07 Q6H, 0 l Hydrocodone 13:50: Refill(s) H [place] Bitartrate 00 10 MG Oral Tablet [Spencer 10/325] Methocarbam Yes 500 mg = 1 Memoria ol 500 MG 3-07 tab, PO, l Oral Tablet 12:19: QID, PRN He rmcielo [Robaxin] 00 muscle pain, X 14 day, # 56 tab, 0 Refill(s) Famotidine Yes 20 mg = 1 Me moria 20 MG Oral -07 tab, PO, l Tablet 12:19: BID, # 60 Tomy n [Pepcid] 00 tab, 0 Refill(s) { Yes See Memoria (Methylpred 08-14 Instructio l nisolone 4 12:19: ns, PO, Herm cielo MG Oral 00 Take by Tablet mouth as [Medrol]) } directed Pack on label., [Medrol # 1 Pack, Dosepak] 0 Refill(s) magnesium Yes 8.725 gm = Me moria citrate 08-14 150 ml, l 58.2 MG/ML 12:19: PO, ONCE, He rmann Oral 00 # 300 ml, Solution 0 Refill(s) Docusate Yes 100 mg = 1 Mem oria Sodium 100 - cap, PO, l MG Oral 12:19: BID, PRN Tomy n Capsule 00 Constipati [Colace] on, # 60 cap, 0 Refill(s) HYDROcodone 2020- No 1 tab, PO, Rich -acetaminop 08-14 06-29 Q6H, 0 Metho di hen (NORCO) 00:00: 00:00 Refill(s) st 10-325 mg 00 :00 per tablet omeprazole Yes 20 mg = 1 Me moria 20 mg oral 3-03 tab, PO, l enteric 17:32: Daily, # Tomy n coated 00 30 tab, 3 tablet Refill(s) Streptococc No Notes: Teofilo osiris us 02-14 Lightly l pneumoniae 14:00: roll vial He rmann serotype 1 00 (DO NOT capsular SHAKE) antigen before diphtheria administra [id number] tion. protein (Same as: conjugate Prevnar vaccine / 13) Streptococc us pneumoniae serotype 14 capsular antigen diphtheria [id number] protein conjugate vaccine / Streptococc us pneumoniae serotype 18C capsular antigen d Methocarbam Yes 1,000 mg = Memoria ol 500 MG 02-14 2 tab, PO, l Oral Tablet 12:06: QID, X 10 H ermann [Robaxin] 00 day, # 80 tab, 0 Refill(s) Famotidine Yes 20 mg = 1 Me moria 20 MG Oral - tab, PO, l Tablet 12:06: BID, # 60 Tomy n [Pepcid] 00 tab, 0 Refill(s) { Yes See Memoria (Methylpred 02-14 Instructio l nisolone 4 12:06: ns, PO, Herm cielo MG Oral 00 Take by Tablet mouth as [Medrol]) } directed Pack on label., [Medrol X 6 day, # Dosepak] 1 Pack, 0 Refill(s) magnesium Yes 8.725 gm = Me moria citrate 02-14 150 ml, l 8.85% oral 12:06: PO, ONCE, He rmann liquid 00 # 300 ml, 0 Refill(s) Docusate Yes 100 mg = 1 Mem oria Sodium 100 02-14 cap, PO, l MG Oral 12:06: BID, PRN Tomy n Capsule 00 Constipati [Colace] on, # 20 cap, 0 Refill(s) magnesium Yes 8.725 gm = [place] citrate 02-14 150 ml, Methodi solution 00:00: PO, ONCE, st 00 # 300 ml, 0 Refill(s) docusate 2020- No 100 mg = 1 [place] sodium 02-14 06-29 cap, PO, Methodi (COLACE) 00:00: 00:00 BID, PRN st 100 MG 00 :00 Constipati capsule on, # 60 cap, 0 Refill(s) Cefazolin No Notes: Memori a 02-13 (Same As: l 20:00: Ancef, [place] 00 Kefzol) MEDICATION WASTE Product Size: 1000 mg Product Wasted: ___ mg Dexamethaso No Notes: Teofilo osiris ne 02-13 Concentrat l 17:00: ion: [place] 00 4mg/ml pantoprazol No Notes: Teofilo osiris e 02-13 Tablet l 15:05: should not Vince 00 be chewed or crushed. (Same as: Protonix) Losartan No Notes: Memoria 02-13 (Same as: l 15:05: Cozaar) Vince 00 Labetalol No 10 mg, Memori a 02-13 Route: l 14:15: IVP, Vince 00 Q5Min, Dosing Weight 79.545, kg, PRN Elevated BP, Start date: 02/14/16 9:15:00 CDT, Duration: 5 doses or times, Stop date: Limited # of times leflunomide No 20 mg, Teofilo osiris 02-13 Route: PO, l 14:00: Drug form: Vince 00 TAB, Daily, Dosing Weight 79.545, kg, Start date: 02/14/16 9:00:00 CDT, Duration: 30 day, Stop date: 03/14/16 9:00:00 CDT Cymbalta No Notes: Memoria 02-13 (Same as: l 14:00: Cymbalta) Vince 00 (Do Not Crush) Robaxin No Notes: Memoria 02-13 (Same l 14:00: as:Robaxin [place] 00 ) Famotidine No Notes: Memor ia 02-13 (Same as: l 14:00: Pepcid) Vince 00 Can be dilute in 5-10cc NS IVP: Slow IV push over at least 2 minutes. Docusate No Notes: Memoria Sodium 100 02-13 (Same as: l MG Oral 14:00: Colace) [place] Capsule 00 (Do Not Crush) Naloxone No Notes: Memoria 02-13 Same as l 13:33: Narcan Vince 00 Flumazenil No Notes: Memor ia 02-13 (Same as: l 13:33: Romazicon) Vince Ondansetron No Notes: Teofilo osiris 02-13 (Same as: l 13:33: Zofran) [place] 00 MEDICATION WASTE Product Size: 4 mg Product Wasted: ___ mg Hydromorpho No Notes: Teofilo osiris ne 02-13 Same as: l 13:33: Dilaudid Vince 00 Hydralazine No Notes: Teofilo osiris 02-13 (Same as: l 13:33: Apresoline [place] 00 ) Push over 5 minutes Regular No 60 Memoria Insulin, -06 units) l Human 100 13:13: WASTE: F/P He rmann UNT/ML 00 - Black; E Injectable - Solution Municipal Trash Bin Stable for 28 days at room temperatur e Expires in days from ____Date Dextrose No 6.25 gm, Memor ia 50% Syringe 02-13 12.5 mL, l 13:13: Route: Vince 00 IVP, Drug Form: INJ, Dosing Weight 79.545, kg, PRN, PRN Abnormal Lab Result, Start date: 02/14/16 8:13:00 CDT, Duration: 30 day, Stop date: 03/15/16 8:12:00 CDT Acetaminoph No Notes: Do M emoria en 325 MG / 02-13 not exceed l Hydrocodone 13:13: 4gm/day of Vince Bitartrate 00 acetaminop 10 MG Oral hen. Tablet (Same as: [Spencer Spencer 10/325] 325/10) phenol 5 No Notes: Memoria MG/ML 02-13 Chlorasept l Mucosal 13:13: ic [place] Tomy n [place] 00 (Same as: Chlorasept ic, Sore Throat [place]) WASTE: F/P - Black; E - Municipal Trash Bin Ondansetron No Notes: Teofilo osiris 02-13 (Same as: l 13:13: Zofran) Vince 00 MEDICATION WASTE Product Size: 4 mg Product Wasted: ___ mg Morphine No Notes: Memoria 02-13 (Same l 13:13: as:MORPhin [place] 00 e Sulfate) Sodium No 1,000 mL, Memori a Chloride 02-13 Rate: 50 l 0.154 13:13: ml/hr, Vince MEQ/ML 00 Infuse Injectable over: 20 Solution hr, Route: IV, Dosing Weight 79.545 kg, Total Volume: 1,000, Start date: 02/14/16 8:13:00 CDT, Duration: 30 day, Stop date: 03/15/16 8:12:00 CDT Ancef + No Notes: Memoria sodium 02-13 (Same As: l chloride 12:27: Ancef, Vince 0.9% INJ 00 Kefzol) 100 mL MEDICATION WASTE Product Size: 1000 mg Product Wasted: ___ mg ceFAZolin No Notes: Memori a 9- Same as: l 04:00: Ancef [place] 00 Celebrex 50 Yes 50 mg, 1 Me moria mg oral 6-25 cap, PO, l capsule 16:16: BID, 60 [place] 49 cap, Substituti on Allowed, CAP Cymbalta 60 Yes 60 mg, 1 Me moria mg oral 6-25 cap, PO, l delayed 16:16: Daily, Vince release 21 Substituti capsule on Allowed methotrexat Yes 3.3 MG/M2, Memoria e 25 mg/mL 6-25 IM, Q7D, l injectable 16:15: Substituti H ermann solution 08 on Allowed Humira 20 Yes 20 mg, 0.4 Me moria mg/0.4 mL 6-25 ml, SUB-Q, l subcutaneou 16:14: q2wk, 1 Her felder s solution 17 kit, Substituti on Allowed, KIT Ambien No Ketan 10 mg, 1 Mem oria 3-24 [place] tab, l 02:00: Route: PO, [place] 00 Drug form: TAB, Bedtime, Start date: 08/31/11 21:00:00, Duration: 30 day, Stop date: 09/29/11 21:00:00 Prozac No Ketan 20 mg, 1 Mem oria 3-23 [place] cap, l 17:38: Route: PO, [place] 00 Drug form: CAP, QAM, Start date: 08/31/11 12:38:00, Duration: 30 day, Stop date: 09/30/11 9:00:00 ketorolac No Ketan 30 mg, 1 Memoria 30 mg/mL 3-23 [place] mL, Route: l injectable 17:00: IVP, Drug He rmann solution 00 form: INJ, Q6H, Start date: 08/31/11 12:00:00, Duration: 4 day, Stop date: 09/04/11 6:00:00 acetaminoph No Ketan 15 mL, Memoria en-hydrocod 3-23 [place] Route: PO, l one 16:01: Drug Form: Vince 00 ELIX, Q4H, PRN Pain, Start date: 08/31/11 11:01:00, Duration: 30 day, Stop date: 09/30/11 11:00:00 Tylenol No Ketan 650 mg, Mem oria 3-23 [place] 20.3 mL, l 16:01: Route: PO, [place] 00 Drug form: LIQ, Q4H, PRN Pain Score 1-3, Start date: 08/31/11 11:01:00, Duration: 30 day, Stop date: 09/30/11 11:00:00 Lactated No Ketan 1,000 mL, Memoria Ringers 3-23 [place] Rate: 80 l Injection 16:01: ml/hr, Tomy n IV 1,000 mL 00 Infuse over: 12.5 hr, Route: IV, Dosing Weight 80.256 kg, Total Volume: 1,000, Start date: 08/31/11 11:01:00, Duration: 30 day, Stop date: 09/30/11 11:00:00 heparin No Ketan 5,000 Memor ia 3-23 [place] unit, 1 l 03:00: mL, Route: Vince 00 SUB-Q, Drug form: INJ, ONCE, Start date: 08/30/11 22:00:00, Stop date: 08/30/11 22:00:00 Pepcid No Ketan 20 mg, 2 Mem oria 3-23 [place] mL, Route: l 02:00: IVP, Drug form: INJ, Q12H, Start date: 08/30/11 21:00:00, Duration: 30 day, Stop date: 09/29/11 9:00:00 Reglan 2011-0 No Ketan 10 mg, 2 Mem oria 3-22 [place] mL, Route: l 23:00: IVP, Drug form: INJ, Q8H, Start date: 08/30/11 18:00:00, Duration: 2 day, Stop date: 09/01/11 10:00:00 Tylenol 0 No Ketan 650 mg, 1 M emoria 3-22 [place] supp, l 21:50: Route: [place], [place] 00 Drug form: SUPP, Q4H, PRN Fever, Start date: 08/30/11 16:50:00, Duration: 30 day, Stop date: 09/29/11 16:49:00 Phenergan 2011-0 No Ketan 25 mg, 1 Memoria 3-22 [place] mL, Route: l 21:49: IM, Drug form: INJ, Q4H, PRN Nausea, Start date: 08/30/11 16:49:00, Duration: 30 day, Stop date: 09/29/11 16:48:00 Lactated 2011- No Ketan 1,000 mL, Memoria Ringers 3-22 [place] Rate: 125 l Injection 21:49: ml/hr, Tomy n IV 1,000 mL 00 Infuse over: 8 hr, Route: IV, Dosing Weight 80.256 kg, Total Volume: 1,000, Start date: 08/30/11 16:49:00, Duration: 1 day, Stop date: 08/31/11 16:48:00 morphine 2011- No Bassem D 2 mg, 1 Mem oria Sulfate 08-29 [place] mL, Route: l 18:46: IVP, Drug form: INJ, ONCE, Start date: 08/30/11 13:46:00, Stop date: 08/30/11 13:46:00 Phenergan 2011- No Bassem D 6.25 mg, M emoria - [place] Route: l 18:33: IVPB, Vince 00 ONCE, Start date: 08/30/11 13:33:00, Stop date: 08/30/11 13:33:00 Phenergan 2011- No Ketan 12.5 mg, Memoria 3-22 [place] 0.5 mL, l 17:52: Route: [place] 00 IVPB, Q6H, PRN Nausea & Vomiting, Start date: 08/30/11 12:52:00, Duration: 30 day, Stop date: 09/29/11 12:51:00 Zofran 2011-0 No Ketan 4 mg, 1 Teofilo osiris 3-22 [place] tab, l 17:51: Route: PO, Drug form: TAB, Q8H, PRN Nausea & Vomiting, Start date: 08/30/11 12:51:00, Duration: 30 day, Stop date: 09/29/11 12:50:00 naloxone No Ketan 0.2 mg, Me moria - [place] 0.5 mL, l 17:50: Route: [place] 00 IVP, Drug form: INJ, Q5Min, PRN Narcotic Reversal, Start date: 08/30/11 12:50:00, Duration: 30 day, Stop date: 09/29/11 12:49:00 morphine No Ketan IV, Start Memoria Sulfate 30 08-29 [place] date: l mg 17:49: 08/30/11 Vince 00 12:49:00, Duration: 30, 30 ml heparin No Ketan 5,000 Memor ia - [place] unit, l 14:34: Route: [place] 00 SUB-Q, ONCE, Start date: 08/30/11 9:34:00, Stop date: 08/30/11 9:34:00 Invanz No Ketan 1 gm, Memori a - [place] Route: l 11:30: IVPB, PRE [place] 00 OP, Start date: 08/30/11 6:30:00, Stop date: 08/30/11 17:00:00 chlorhexidi No Ketan 15 mL, Memoria ne topical 08-29 [place] Route: l 0.12% 11:30: S&SPIT, [place] liquid 00 PRE OP, Drug form: LIQ, Start date: 08/30/11 6:30:00, Stop date: 08/30/11 17:00:00 Immunizations Ordered Immunization Filled Immunization Date Status Commen ts Source Name Name FLUCELVAX QUAD PF 2019-04-12 Completed [place] 00:00:00 [facility] Pneumococcal 2016-02-15 Completed [place] Conjugate 13-Valent 00:00:00 Metho dist Influenza Trivalent 2015-04-10 Completed [place] 00:[place]:00 [facility] Influenza Trivalent 2014-04-05 Completed [place] 00:00:00 [facility] Tdap 2014-04-05 Completed [place] 00:00:00 [facility] Vital Signs Vital Name Observation Time Observation Value Comments Source Systolic blood 2019-12-20 11:28:46 130 mm[Hg] [place] [facility] pressure Diastolic blood 2019-12-20 11:28:46 81 mm[Hg] [place] [facility] pressure Heart rate 2019-12-20 11:28:46 85 /min [place] [facility] Body temperature 2019-12-20 11:28:46 36.56 [place] [facility] Respiratory rate 2019-12-20 11:28:46 15 /min [place] [facility] Oxygen saturation in 2019-12-20 11:28:46 100 /min [place] [facility] Arterial blood by Pulse oximetry Body height 2019-12-16 06:32:02 172.7 cm [place] [facility] Body weight 2019-12-16 06:32:02 79.606 kg [place] [facility] BMI 2019-12-16 06:32:02 26.68 kg/m2 [place] [facility] BMI Calculated 2017-08-20 20:22:00 Memori al [place] Weight 2017-08-20 20:22:00 [facility] [place] Height 2017-08-20 20:22:00 172.72 cm [facility] [place] Heart Rate 2017-08-20 20:22:00 [facility] [place] Temperature Oral (F) 2017-08-20 20:22:00 97.7 F [facility] [place] Systolic (mm Hg) 2017-08-20 20:22:00 Teofilo rial Vince Diastolic (mm Hg) 2017-08-20 20:22:00 Mem orial [place] Height 2017-07-09 20:53:00 172.72 cm [facility] [place] BMI Calculated 2017-07-09 20:53:00 Memori al [place] Weight 2017-07-09 20:53:00 [facility] [place] Heart Rate 2017-07-09 20:53:00 [facility] [place] Systolic (mm Hg) 2017-07-09 20:53:00 Teofilo rial Vince Diastolic (mm Hg) 2017-07-09 20:53:00 Mem orial [place] BMI Calculated 2017-06-06 13:00:00 Memori al [place] Weight 2017-06-06 13:00:00 [facility] [place] Height 2017-06-06 13:00:00 172.72 cm [facility] [place] Heart Rate 2017-06-06 13:00:00 [facility] [place] Temperature Oral (F) 2017-06-06 13:00:00 98.1 F [facility] [place] Systolic (mm Hg) 2017-06-06 13:00:00 Teofilo rial [place] Diastolic (mm Hg) 2017-06-06 13:00:00 Mem orial Vince BMI Calculated 2017-05-29 19:33:00 Memori al [place] Weight 2017-05-29 19:33:00 [facility] [place] Heart Rate 2017-05-29 19:33:00 [facility] [place] Systolic (mm Hg) 2017-05-29 19:33:00 Teofilo rial [place] Diastolic (mm Hg) 2017-05-29 19:33:00 Mem orial Vince Height 2017-05-29 19:33:00 172.72 cm [facility] [place] Height 2017-05-20 20:39:00 172.72 cm [facility] [place] Systolic (mm Hg) 2017-05-20 20:39:00 Teofilo rial [place] Diastolic (mm Hg) 2017-05-20 20:39:00 Mem orial Vince Heart Rate 2017-05-20 20:39:00 [facility] [place] BMI Calculated 2017-04-29 16:18:00 Memori al Vince Height 2017-04-29 16:18:00 172.72 cm [facility] [place] Weight 2017-04-29 16:18:00 [facility] [place] Systolic (mm Hg) 2017-04-29 16:18:00 Teofilo rial Vince Diastolic (mm Hg) 2017-04-29 16:18:00 Mem orial Vince Temperature Oral (F) 2017-04-29 16:18:00 98.2 F [facility] [place] BMI Calculated 2017-04-26 20:56:00 Memori al Vince Weight 2017-04-26 20:56:00 [facility] [place] Height 2017-04-26 20:56:00 173.99 cm [facility] Temperature Oral (F) 2017-04-26 20:56:00 98.5 F [facility] [place] Heart Rate 2017-04-26 20:56:00 [facility] [place] Systolic (mm Hg) 2017-04-26 20:56:00 Teofilo rial [place] Diastolic (mm Hg) 2017-04-26 20:56:00 Mem orial [place] Respitory Rate 2016-08-14 19:00:00 Memori al [place] Systolic (mm Hg) 2016-08-14 19:00:00 Teofilo rial [place] Diastolic (mm Hg) 2016-08-14 19:00:00 Mem orial [place] Systolic (mm Hg) 2016-08-14 18:45:00 Teofilo rial [place] Diastolic (mm Hg) 2016-08-14 18:45:00 Mem orial [place] Respitory Rate 2016-08-14 18:45:00 Memori al [place] Systolic (mm Hg) 2016-08-14 18:30:00 Teofilo rial [place] Diastolic (mm Hg) 2016-08-14 18:30:00 Mem orial [place] Respitory Rate 2016-08-14 18:30:00 [facility] al [place] Heart Rate 2016-08-14 13:57:00 [facility] [place] Height 2016-08-14 13:54:00 172.72 cm [facility] [place] BMI Calculated 2016-08-14 13:54:00 [facility] [place] Weight 2016-08-14 13:54:00 [facility] [place] BMI Calculated 2016-08-10 21:13:00 Memori al [place] Weight 2016-08-10 21:13:00 [facility] [place] Height 2016-08-10 21:13:00 172.72 cm [facility] [place] Temperature Oral (F) 2016-02-15 13:08:00 98.1 F [facility] [place] Systolic (mm Hg) 2016-02-15 13:08:00 Teofilo rial [place] Diastolic (mm Hg) 2016-02-15 13:08:00 Mem orial [place] Heart Rate 2016-02-15 13:08:00 [facility] [place] Respitory Rate 2016-02-15 13:08:00 Memori al [place] Systolic (mm Hg) 2016-02-15 09:06:00 Teofilo rial [place] Diastolic (mm Hg) 2016-02-15 09:06:00 Mem orial [place] Respitory Rate 2016-02-15 09:06:00 [facility] al [place] Heart Rate 2016-02-15 09:06:00 [facility] [place] Temperature Oral (F) 2016-02-15 09:06:00 98.1 F [facility] [place] Temperature Oral (F) 2016-02-15 04:43:00 98.2 F [facility] [place] Systolic (mm Hg) 2016-02-15 04:43:00 Teofilo rial [place] Diastolic (mm Hg) 2016-02-15 04:43:00 Mem orial [place] Respitory Rate 2016-02-15 04:43:00 Memori al [place] Heart Rate 2016-02-15 04:43:00 [facility] [place] Height 2016 11:41:00 172.72 cm [facility] [place] Weight 2016 11:41:00 [facility] [place] BMI Calculated 2016 11:41:00 Memori al [place] Height 2016-02-09 15:30:00 172.72 cm [facility] [place] BMI Calculated 2016-02-09 15:30:00 Memori al [place] Weight 2016-02-09 15:30:00 [facility] [place] Height 2012-12-02 15:57:00 172.72 cm [facility] [place] Weight 2012-12-02 15:57:00 [facility] [place] Temperature Oral (F) 2011-09-01 00:10:00 98.9 F [facility] [place] Systolic (mm Hg) 2011-09-01 00:10:00 Teofilo rial [place] Heart Rate 2011-09-01 00:10:00 [facility] [place] Respitory Rate 2011-09-01 00:10:00 Memori al [place] Diastolic (mm Hg) 2011-09-01 00:10:00 Mem orial [place] Diastolic (mm Hg) 2011-08-31 20:00:00 Mem orial [place] Systolic (mm Hg) 2011-08-31 20:00:00 Teofilo rial [place] Respitory Rate 2011-08-31 20:00:00 Memori al [place] Temperature Oral (F) 2011-08-31 20:00:00 98.7 F [facility] [place] Heart Rate 2011-08-31 20:00:00 [facility] [place] Diastolic (mm Hg) 2011-08-31 16:40:00 Mem orial [place] Systolic (mm Hg) 2011-08-31 16:40:00 Teofilo rial [place] Respitory Rate 2011-08-31 16:40:00 Memori al [place] Heart Rate 2011-08-31 16:40:00 [facility] [place] Temperature Oral (F) 2011-08-31 16:40:00 98.8 F [facility] [place] Weight 2011-08-24 21:17:00 [facility] [place] Height 2011-08-24 21:17:00 175.26 cm [facility] [place] Weight 2011-06-12 16:09:00 [facility] [place] Height 2011-06-12 16:09:00 175.26 cm [facility] Procedures Procedure Date / Time Performing Clinician Source Performed XR SPINE SCOLIOSIS 2-3 2020-01-11 14:56:46 Alphonso Potter VIEWS HC COMPLETE BLD COUNT 2019-12-20 04:50:00 Ayden Maddoxist W/AUTO DIFF HC COMPLETE BLD COUNT 2019-12-19 08:47:00 Ayden Maddox [facility] W/AUTO DIFF XR CHEST 1 VW PORTABLE 2019-12-18 18:20:00 [facility] CBC HEMOGRAM 2019-12-18 04:37:00 Ayden Maddox Meth odist CBC HEMOGRAM 2019-12-17 03:35:00 Ayden Maddox Meth odist INTRAOPERATIVE MONITORING 2019-12-16 14:37:58 Alphonso Potter SURGICAL PATHOLOGY REQUEST 2019-12-16 13:15:00 Alphonso Potter [place] > 1 HOUR 2019-12-16 11:45:00 Ayden Maddox odmone TRANSFUSE RED BLOOD CELLS 2019-12-16 11:03:14 Dionna Flores ARTERIAL LINE 2019-12-16 10:46:29 Dionna Flores ethodist HEMOGLOBIN, SYRINGE 2019-12-16 10:40:00 Alphonso Potter on [facility] POTASSIUM, SYRINGE 2019-12-16 10:40:00 Alphonso Potter ARTERIAL BLOOD GAS, 2019-12-16 10:05:00 Alphonso Potter on [facility] CORRECTED SODIUM LEVEL, SYRINGE 2019-12-16 10:05:00 Alphonso Potter [facility] HEMOGLOBIN, SYRINGE 2019-12-16 10:05:00 Alphonso Potter on [facility] POTASSIUM, SYRINGE 2019-12-16 10:05:00 Alphonso Potter [facility] GLUCOSE LEVEL, SYRINGE 2019-12-16 10:05:00 Alphonso Potter [facility] MAGNESIUM LEVEL 2019-12-16 10:05:00 Alphonso Potter ethodist IONIZED CALCIUM, ARTERIAL 2019-12-16 10:05:00 Alphonso Potter LACTIC ACID, SYRINGE 2019-12-16 10:05:00 Alphonso Potter [facility] [place] AN ELECTIVE 2019-12-16 08:55:27 Dionna Flores Hilario Torres ethodist ENDOTRACHEAL AIRWAY FUSION, SPINE, THORACIC, 2019-12-16 07:56:00 Alphonso Potter USING POSTERIOR TECHNIQUE COVID-19 QUALITATIVE PCR 2019-12-14 13:53:00 Nat Kwon [facility] TYPE AND SCREEN 2019-12-07 16:16:00 Alphonso Potter ethodist PREPARE RBC 2019-12-07 16:16:00 Alphonso Potter ethodist XR SPINE SCOLIOSIS 2-3 2019-11-09 13:18:28 Alphonso Potter [facility] VIEWS XR SPINE SCOLIOSIS 2-3 2019-08-03 13:47:04 Alphonso Potter [facility] VIEWS XR SPINE SCOLIOSIS 2-3 2019-04-30 14:05:41 Alphonso Potter [facility] VIEWS HC COMPLETE BLD COUNT 2019-04-12 05:40:00 Hui Hernandez [facility] W/AUTO DIFF HC COMPLETE BLD COUNT 2019-04-11 09:10:00 Hui Hernandez W/AUTO DIFF ZINC LEVEL, SERUM 2019-04-11 05:30:00 Farhana Duffy ethodist COPPER LEVEL, SERUM 2019-04-11 05:30:00 Farhana Duffy VITAMIN D 25 HYDROXY LEVEL 2019-04-11 05:00:00 Farhana Duffy FOLATE LEVEL 2019-04-11 04:00:00 Farhana Duffy [place] VITAMIN B12 LEVEL 2019-04-11 04:00:00 Farhana Duffy ethodist IRON LEVEL 2019-04-11 04:00:00 Farhana Duffyist CBC HEMOGRAM 2019-04-10 05:00:00 Nat Kwon odist CBC HEMOGRAM 2019-04-09 05:30:00 Nat Kwon odist INTRAOPERATIVE MONITORING 2019-04-08 13:27:10 Alphonso Potter [place] > 1 HOUR 2019-04-08 13:00:02 Alphonso Potter ethodist XR LUMBAR SPINE 1 VW 2019-04-08 12:30:00 Alphonso Potter [facility] [place] AN ELECTIVE 2019-04-08 09:37:31 Hiwot Saucedo Met hodist ENDOTRACHEAL AIRWAY [place] ARTERIAL BLOOD GAS, 2019-04-08 09:18:00 Alphonso Potterist CORRECTED POTASSIUM, SYRINGE 2019-04-08 09:18:00 Alphonso Potter n [facility] SODIUM LEVEL, SYRINGE 2019-04-08 09:18:00 Alphonso Potter HEMOGLOBIN, SYRINGE 2019-04-08 09:18:00 Alphonso Potter on [facility] IONIZED CALCIUM, ARTERIAL 2019-04-08 09:18:00 Alphonso Potter LACTIC ACID, SYRINGE 2019-04-08 09:18:00 Alphonso Potter [facility] MAGNESIUM LEVEL 2019-04-08 09:18:00 Alphonso Potter ethodist GLUCOSE LEVEL, SYRINGE 2019-04-08 09:18:00 Alphonso Potter FUSION, SPINE, LUMBAR, 2019-04-08 08:00:00 Alphonso Potter POSTERIOR APPROACH PAIN MANAGEMENT BASE 2019-03-27 16:05:00 Karen Meadows PROFILE W/ CONFIRMATION, URINE URINE CULTURE 2019-03-24 16:35:00 Marianna Sagastume GRAM STAIN 2019-03-24 16:35:00 Marianna Sagastume URINALYSIS SCREEN AND 2019-03-24 14:15:00 Marianna Sagastume MICROSCOPY, WITH REFLEX TO CULTURE ECG PRE/POST OP 2019-03-24 13:52:49 Marianna Sagastumest CBC HEMOGRAM 2019-03-24 13:45:00 Marianna Sagastume ethodist TYPE AND SCREEN 2019-03-24 13:45:00 Marianna Sagastume ethodist PARTIAL THROMBOPLASTIN 2019-03-24 13:45:00 Marianna Sagastume TIME (PTT) PROTHROMBIN TIME WITH INR 2019-03-24 13:45:00 Marianna Sagastume COMPREHENSIVE METABOLIC 2019-03-24 13:45:00 Marianna Sagastume PANEL ESTIMATED GFR 2019-03-24 13:45:00 Marianna Sagastume ethodist XR SPINE SCOLIOSIS 2-3 2019-02-16 15:20:36 Alphonso Potter VIEWS Injection(s), anesthetic 2017-07-18 21:26:00 Mem orial [place] agent and/or steroid, transforaminal epidural, with imaging guidance (fluoroscopy or CT); lumbar or sacral, single level Epidural steroid 2017-07-09 06:00:00 [facility] rmann injection<sup>1</sup> Epidural steroid 2017-05-21 06:00:00 [facility] rmann injection<sup>2</sup> Microdiscectomy 2016-08-14 06:00:00 [facility] Cervical discectomy 2016 05:00:00 [facility] Vince Miscellaneous 2011-08-30 05:00:00 [facility] operations<sup>3</sup> Miscellaneous operations 2011-08-30 05:00:00 Mem orial [place] <sup>1</sup> Arthroscopy of knee [facility] Hysterectomy [facility] [place] Jah-en-y gastric [facility] Dol[place] nn bypass<sup>6</sup> Arthroscopy of knee [facility] Hysterectomy [facility] [place] Jah-en-y gastric bypass Memoria l Vince <sup>4</sup> Plan of Care Planned Activity Planned Date Details Comments Source Future Scheduled 2022-12-08 COLONOSCOPY SCREENING Ryland Armendariz Test 00:00:00 [code = COLONOSCOPY SCREENING] Future Scheduled 2020-03-10 INFLUENZA VACCINE Lilibeth macias [facility] Test 00:00:00 [code = INFLUENZA VACCINE] Future Scheduled 2016-04-[address] [facility] thodist Test 00:00:00 SCREENING [code = BREAST CANCER SCREENING] Future Scheduled 2010-02-13 SHINGLES VACCINES [place] [facility] Test 00:00:00 (#1) [code = SHINGLES VACCINES (#1)] Future Scheduled 1981-02-13 Screening for Rich Me thodist Test 00:00:00 malignant neoplasm of cervix (procedure) [code = 987799075] Encounters Start End Encounter Admission Attending Care Care Encounter Source Date/Time Date/Time Type Type Clinicians Facility Department ID 2020-01-14 2020-01-14 Outpatient DALE [facility] [id number] [place] 00:00:00 00:00:00 KAREN 553 Metho di 2020-01-11 2020-01-11 Outpatient LEV [facility] [id number] [place] 00:00:00 00:00:00 ALPHONSO 784 Method i 2020-01-11 2020-01-11 Outpatient LEV [facility] [id number] [place] 00:00:00 00:00:00 ALPHONSO 815 Method i 2019-12-28 2019-12-28 Outpatient DALE [facility] [id number] [place] 00:00:00 00:00:00 KAREN 560 Metho di 2019-12-16 2019-12-20 Inpatient LEV [facility] [id number] [place] 00:00:00 00:00:00 ALPHONSO 904 Method i 2019-12-14 2019-12-14 Outpatient LEV [facility] [id number] [place] 00:00:00 00:00:00 ALPHONSO 844 Method i 2019-12-07 2019-12-07 Outpatient LEV [facility] [id number] [place] 00:00:00 00:00:00 ALPHONSO 733 Method i 2019-12-07 2019-12-07 Outpatient LEV [facility] [id number] [place] 00:00:00 00:00:00 ALPHONSO 112 Method i 2019-11-09 2019-11-09 Outpatient LEV [facility] [id number] [place] 00:00:00 00:00:00 ALPHONSO 178 Method i 2019-11-09 2019-11-09 Outpatient LEV [facility] [id number] [place] 00:00:00 00:00:00 ALPHONSO 484 Method i 2019-08-03 2019-08-03 Outpatient LEV [facility] [id number] [place] 00:00:00 00:00:00 ALPHONSO 167 Method i 2017-09-25 2017-09-26 Outpatient MHM[facility]CHER MHMISCHER [id number] 11:46:00 23:59:59 32 2017-08-20 2017-08-20 Outpatient Pasha Goldstein [facility] M[facility]ER [id number] 09:30:00 23:59:59 Hwan 29 2017-08-19 2017-08-19 Outpatient Gerson Le MHOIP MHOIP [id number] 13:40:00 23:59:00 C 12 2017-08-14 2017-08-15 Outpatient MHMISCHER MHMISCHER [id number] 12:53:00 23:59:59 31 2017-08-07 2017-08-08 Outpatient MHMISCHER MHMISCHER [id number] 08:24:00 23:59:59 30 2017-08-08 2017-08-08 Outpatient Gerson Le MHMISCHER MHMISCHER [id number] 11:00:00 11:00:00 C 11 2017-07-26 2017-07-27 Outpatient MHMISCHER MHMISCHER [id number] 16:39:00 23:59:59 29 2017-07-22 2017-07-23 Outpatient MHMISCHER MHMISCHER [id number] 17:01:00 23:59:59 28 2017-07-18 2017-07-18 Outpatient AngelitaPasha MHMISCHER MHMISCH[facility] [id number] 13:40:00 23:59:59 Hwan 28 2017-07-11 2017-07-12 Outpatient [facility] [id number] 10:27:00 23:59:59 27 2017-07-11 2017-07-11 Outpatient Stella, [facility] [id number] 09:40:00 09:40:00 Viviana Lopez 2017-07-11 2017-07-11 Outpatient Stella, [facility] [id number] 09:40:00 09:40:00 Viviana Lopez 2017-07-10 2017-07-10 Outpatient Stanley [facility] [id number] 10:00:00 10:00:00 Kala Torres 18 2017-07-09 2017-07-09 Outpatient Pasha Goldstein [facility] [id number] 11:40:00 23:59:59 Hwduy 26 2017-07-08 2017-07-09 Outpatient [facility] [id number] 11:26:00 23:59:59 26 2017-07-09 2017-07-09 Outpatient Stella, [facility] [id number] 13:40:00 13:40:00 Viviana 24 Jessica 2017-07-08 2017-07-08 Outpatient Stella, [facility] [id number] 13:00:00 13:00:00 Viviana 23 Jessica 2017-07-08 2017-07-08 Outpatient Stella, [facility] [id number] 11:40:00 11:40:00 Viviana 25 Jessica 2017-07-03 2017-07-04 Outpatient [facility] [id number] 11:29:00 23:59:59 25 2017-07-04 2017-07-04 Outpatient Stella, [facility] [id number] 14:20:00 14:20:00 Viviana 21 Jessica 2017-06-18 2017-06-18 Outpatient Pasha Goldstein [facility] [id number] 14:20:00 23:59:59 Aziza 20 2017-06-18 2017-06-18 Outpatient Pasha Goldstein [facility] [id number] 14:20:00 23:59:59 Aziza 20 2017-06-12 2017-06-13 Outpatient [facility] [id number] 11:41:00 23:59:59 24 2017-06-13 2017-06-13 Outpatient Stella, [facility] [id number] 14:20:00 14:20:00 Viviana 19 Jessica 2017-06-12 2017-06-12 Outpatient Stella, [facility] [id number] 10:20:00 10:20:00 Viviana Lopez 2017-06-11 2017-06-11 Outpatient Stella [facility] [id number] 14:00:00 14:00:00 Viviana Lopez 2017-06-06 2017-06-06 Outpatient Pasha Goldstein [facility] [id number] 13:30:00 23:59:59 duy 17 2017-05-29 2017-05-29 Outpatient Pasha Goldstein [facility] M[facility] [id number] 13:20:00 23:59:59 duy 14 2017-05-28 2017-05-29 Outpatient [facility] M[facility] [id number] 11:01:00 23:59:59 23 2017-05-23 2017-05-24 Outpatient [facility]ER M[facility]IS[facility] [id number] 14:54:00 23:59:59 22 2017-05-21 2017-05-21 Outpatient Pasha Goldstein [facility] M[facility] [id number] 11:20:00 23:59:59 duy 13 2017-05-20 2017-05-20 Outpatient Pasha Goldstein [facility] M[facility] [id number] 14:00:00 23:59:59 [facility] 12 2017-05-14 2017-05-14 Outpatient Gerson Le 2.16.840. 2.16.840. 1. [id number] 15:03:00 23:59:00 C 1.061979. [id number] 10 3.615.30 5.30 2017-05-14 2017-05-14 Outpatient Gerson Le 2.16.840. 2.16.840. 1. [id number] 12:22:00 23:59:00 C 1.164339. [id number] 11 3.615.30 5.30 2017-04-29 2017-04-29 Outpatient Gerson Le MHMIS[facility]ER MHMISCHER [id number] 09:00:00 23:59:59 C 10 2017-04-26 2017-04-26 Outpatient Pasha Goldstein [facility] M[facility] [id number] 10:15:00 23:59:59 [facility] 2017-04-06 2017-04-06 Outpatient Pasha Goldstein [facility] [id number] 11:12:00 23:59:00 [facility] 2016-08-14 2016-08-14 Outpatient Pasha Goldstein [facility] [id number] 07:00:00 23:59:00 [facility] 2016-07-28 2016-07-28 Outpatient Андрей 2.16.840. 2.16.840.1. [id number] 15:58:00 23:59:00 Kan Arora 1.878556. [id number] 08 3.615.30 5.30 2016 2016-02-15 Outpatient Pasha Goldstein [facility] [id number] 06:02:00 11:15:00 [facility] 2015-05-10 2015-05-10 Outpatient Héctor, MHOIP MHOIP [id number] 14:29:00 23:59:00 Rajat Bejarano 2014-11-08 2014-11-08 Outpatient Héctor, IE IE [id number] 07:35:00 23:59:00 Rajat 05 Darci 2014-10-27 2014-10-27 Outpatient Héctor, IE IE [id number] 14:17:00 23:59:00 Rajat Bejarano 2013-12-23 2013-12-23 Outpatient Héctor, IE IE [id number] 14:21:00 23:59:00 Rajat Bejarano 2013-12-08 2013-12-08 Outpatient Héctor, IE IE [id number] 14:11:00 23:59:00 Rajat 02 Darci 2013-07-09 2013-07-09 Outpatient [place] IE [id number] [facility] 11:35:00 23:59:00 [facility] [place] Results Test Description Test Time Test Comments Results Result Comments Source CBC with platelet and differential 2019-12-20 06:58:34 Test Item Value Reference Range Interpretation Comme nts WBC (test code = 72516-5) 10.11 4.50- 11.00 k/uL RBC (test code = 35402-6) 3.36 m/uL 4.2-5.5 L HGB (test code = 718-7) 8.9 g/dL 12-16 L HCT (test code = 4544-3) 28.5 % 37-47 L MCV (test code = 787-2) 84.8 fL 82-100 MCH (test code = 785-6) 26.5 pg 27-34 L MCHC (test code = 786-4) 31.2 g/dL 31-37 RDW - SD (test code = 63477-3) 51.9 fL 37-55 MPV (test code = 58747-6) 9.8 fL 8.8-13.2 Platelet count (test code = 223 150- 400 k/uL 01696-6) Nucleated RBC (test code = 06748-9) 0.00 /100 WBC Neutrophils (test code = 33899-6) 67.3 % 39-69 Lymphocytes (test code = 69151-9) 18.9 % 25-45 L Monocytes (test code = 13239-5) 11.1 % 0-10 H Eosinophils (test code = 04259-8) 1.9 % 0-5 Basophils (test code = 82743-2) 0.3 % 0-1 Immature granulocytes (test code = 0.5 % 0-1 "Immature 86323-7) granulocytes" (promyelocytes, myelocytes, metamyelocytes) Lab Interpretation (test code = Abnormal 89747-1) [facility] 1 Osfkarmh0212-76-92 19:47:12Hm Interface, Radiology Results - 12/18/2019 7:50 PM CDTEXAMINATION: XR CHEST 1 PORTABLECLINICAL HISTORY: low e5TCOSSQQSLD: 09/19/2016IMPRESSION:Lungs and pleural surfaces are clear.The heart is normal in size. Normal pulmonary vascularity.Spinal rods and cervical fusion hardware are seen.HMRM-TMHNXY2 [facility] ubwsfwfd9409-93-93 05:46:01 Test Item Value Reference Range Interpretation Comments WBC (test code = 23426-6) 12.72 4.50- 11.00 k/uL H RBC (test code = 89614-0) 3.28 m/uL 4.2-5.5 L HGB (test code = 718-7) 8.6 g/dL 12-16 L HCT (test code = 4544-3) 27.7 % 37-47 L MCV (test code = 787-2) 84.5 fL 82-100 MCH (test code = 785-6) 26.2 pg 27-34 L MCHC (test code = 786-4) 31.0 g/dL 31-37 RDW - SD (test code = 91117-1) 51.8 fL 37-55 MPV (test code = 29688-0) 9.9 fL 8.8-13.2 Platelet count (test code = 188 150- 400 k/uL 21004-5) Nucleated RBC (test code = 0.20 /100 WBC 48221-2) Lab Interpretation (test code = Abnormal 34866-7) Hilario MethodistSurgical pathology ugwiiyt2021-72-27 09:35:47 Test Item Value Reference Range Interpretation Comments Case number (test code = [id number]) Surgical pathology See link below for report (test code = PDF Lab Report [id number]) Result status (test code This is Final Report = [id number]) for [id number] Hilario BuchananistOR [place] > I Vlhr8690-87-20 21:16:50Hm Interface, Radiology Results - 12/16/2019 9:19 PM CDTEXAMINATION: OR [place] > 1 HOURC-arm fluoroscopy was requested in OR. Location: [facility] 3 OR 19Procedure: posterior spinal fusion Start: 829End: 1145Fluoro Time: 3.9SECmGy: 57.14Tech: JV SCANS: 2IMPRESSION:Intraoperative fluoroscopic images. Radiologist was not present during the examination.Separate operative report will be issued by the physician performing the procedure.[id number] MethodistPrepare [id number] 12:46:00 Test Item Value Reference Range Interpretation Comments Product name (test code Red Blood Cells -1, = 25) Leukored Unit number (test code [id number] = [id number]) Product code (test code L5017C93 = 3092) Dispense status (test Transfused code = 24) Blood expiration date (test code = 302) Blood type code (test 5100 code = 308) Blood type (test code = O POSITIVE 1314) Compatibility (test Compatible code = 6400) Rich MethodistHemoglobin, ogilizh7687-63-39 10:56:16 Test Item Value Reference Range Interpretation Comments Hemoglobin, syringe (test 7.7 g/dL 12-16 L code = 718-7) JESUS (test code = JESUS) _KS____ results called to and read back by KELSEY BUTT/LIZ 19 at __ 12/16/2019 10:56 by __AD. Lab Interpretation (test Abnormal code = 32142-8) Hilario MethodistPotassium, rqizmdo6739-09-21 10:56:16 Test Item Value Reference Range Interpretation Comments Potassium, syringe (test 3.0 3.5- 5.0 mEq/L LL code = 2008) JESUS (test code = JESUS) _KS____ results called to and read back by KELSEY BUTT/LIZ 19 at __ 12/16/2019 10:56 by __AD. Lab Interpretation (test Abnormal code = 05424-9) Hilario MethodistArterial jtpc2975-46-06 10:46:29TaDionna umanzor 12/16/2019 10:47 AMArterial linePerformed by: Dionna FloresoAuthorized by: Carlos Grubbs MD Patient Location: [facility] Time: 12/16/2019 8:10 AMStaff: Anesthesiologist:Carlos Grubbs MD Performed by: AnesthesiologistPre- procedure: patient identified, IV checked, site and side verified, risks and benefits discussed, procedure verified, surgical consent complete, patient position confirmed, monitors and equipment checked, pre-op evaluation complete and timeout performed prior to procedure MSBT: antiseptic used, all elements of maximal sterile barrier technique followed, hand hygiene performed, cap/gown used by other personnel and solutions labeled Indications: Indications: hemodynamic monitoring Anesthesia: Anesthesia: GeneralProcedure Details: Arterial Line placement: Placed post induction Line placement site: RadialLine placement side: Right Arterial line gauge: 20 GNumber of attempts: 1Ultrasound guidance used: No Post-procedure: Post-procedure: Sterile dressing applied Post procedure circulation, sensation, movement: Normal Pa tient tolerance: Patient tolerated the procedure well with no immediate complicationsFranklin MethodistMagnesium ngkox2705-98-19 10:28:47 Test Item Value Reference Range Interpretation Comments Magnesium (test code = 1.9 mg/dL 1.6-2.6 79358-7) JESUS (test code = JESUS) _KS____ results called to and read back by KELSEY BUTT/LIZ 19 at __ 12/16/2019 10:20 by AD__. Hilario MethodistArterial blood gas, zirodgoxe8197-48-73 10:18:24 Test Item Value Reference Range Interpretation Comments pH, arterial (test code = 2744-1) 7.43 7.35-7.45 pCO2, arterial (test code = 2018-8) 35 35- 45 mmHg pO2, arterial (test code = 2703-7) 261 80- 90 mmHg H Temperature, Celsius (test code = 35.5 Degrees C 8310-5) O2 saturation, arterial (test code = 99 % 95-100 2708-6) pH, arterial corrected (test code = 7.45 16565-9) pCO2, arterial corrected (test code 33 mmHg = 14421-6) pO2, arterial corrected (test code = 256 mmHg 88924-8) Base excess, arterial (test code = -1 -2 - 2 mEq-L 1925-7) Lab Interpretation (test code = Abnormal 90539-5) Rich MethodistGlucose level, bzmakyc9029-40-05 10:18:24 Test Item Value Reference Range Interpretation Comments Glucose, syringe (test code = 82 mg/dL 65-99 2345-7) Franklin MethodistIonized calcium, owrrjsjl8094-31-30 10:18:24 Test Item Value Reference Range Interpretation Comments Ionized calcium, arterial (test 1.00 mmol/L 1.11-1.32 L code = 01081-1) Lab Interpretation (test code = Abnormal 59655-4) Franklin MethodistLactic acid, trqytcy2324-52-39 10:18:24 Test Item Value Reference Range Interpretation Comments Lactic acid, syringe (test code = 1.8 mmol/L 0.5-2.2 00117-8) Franklin MethodistSodium level, asdgplr6040-95-34 10:18:24 Test Item Value Reference Range Interpretation Comments Sodium, syringe (test code = 2947-0) 142 135- 148 mEq/L Rich ThlozrvzwFbsova3371-97-79 08:55:27Dionna Flores 12/16/2019 8:56 AMAirwayDate/Time: 12/16/2019 8:06 AMPerformed by: Eun FloresazoAuthorized by: Carlos Grubbs MD Location: ORUrgency: ElectiveDifficult Airway: No Preoxygenated with 100% O2: Yes C-spine Precautions Maintained Throughout: Yes Mask Ventilation: NotattemptedFinal Airway Type: Endotracheal airwayFinal Endotracheal Airway: ETTCuffed: Yes Technique Used: Direct laryngoscopyDevices/Methods Used in Placement: Intubating styletInsertion Site: OralBlade Type: MacintoshLaryngoscope Blade/Videolaryngoscope Blade Size: 3ETT Size (mm): 7.0Cuff at minimum occlusion pressure: Yes Measured from: LipsETT to Lips (cm): 21Placement Verified by: CO2 detection, direct visualization and equal breath sounds Laryngoscopic view: Grade I - full view of glottisRapid Sequence Induction (RSI): Yes Number of Attempts at Approach: 1 Atraumatic intubation;mouth, teeth and lips unchanged.Hilario MethodistCOVID- 19 qualitative [id number] 14:33:41 Test Item Value Reference Range Interpretation Comments Interpretation (test Negative results do code = 9668640) not preclude 2019-nCoV infection and should not be used as the sole basis for treatment or other patient management decisions. Negative results must be combined with clinical observations, patient history, and epidemiological information. COVID-19 qualitative Not-Detected Not-Detected PCR result (test code = 16831-3) COVID-19 qualitative See link below for C ase Number: PCR (test code = PDF Lab Report [id number]) Hilario MethodistType and maqnzj1160-12-13 18:57:00 Test Item Value Reference Range Interpretation Comments ABO grouping (test code = 883-9) O Rh type (test code = 47644-9) POS Antibody screen (gel) (test code = NEG 890-4) Hilario Moellernc level, gzebe4107-20-55 08:32:05 Test Item Value Reference Range Interpretation Comments Zinc (test code = 49.3 ug/dL 60-120 [place] [address]-4) INFORMATION: Zi nc, Serum or PlasmaElevated results may be due to s kin or collection-rela lupe contamination, including the u se of a noncertified metal-free collection/zimmerman sport tube. If contam ination concerns exist due to elevated levels of serum/plasma zi nc, confirmation wi th a second specimen collected in a certified metal -free tube is recommended.Cir culatin g zinc concentr ations are dependent o n albumin status and are depressed with malnutrition. Zinc may also be low ered with infection, inflammation, s tress, oral contracept micah, and . Zinc may be elevated with zinc supplement ation or fasting. El evated zinc concentrat ions may interfere w ith copper absorpti on. Test developed and characteristics determined by [facility] [place]. S ee Compliance Stat ement B: [employer] erforme d by [employer],[address] [facility], [place] [id number] www .Maintenance AssistantCiaran MD, Lab. Direct or Lab Interpretation Abnormal (test code = 78143-1) Franklin MethodistCopper level, tssrx5542-95-03 12:22:12 Test Item Value Reference Range Interpretation Comments Copper (test code 106.2 ug/dL 80-155 INTERPRETI VE INFORMATION: = 2939-7) Copper, Serum o r PlasmaElevated results may be due to s kin or collection-rela lupe contamination, including the use of a no ncertified metal-free collection/zimmerman sport tube. If contam ination concerns exist due to elevated levels of serum/plasma co pper, confirmation wi th a second specimen collected in a certified metal-free tube is recomme nded.Serum copper may be e levated with infection, inflammation, s tress, and copper suppleme ntation. In females, juan luis vated copper may also be caused by oral contrac eptives and (concentrations may be elevated up to 3 times normal during t he third trimester).Test developed and characteris tics determined by [facility] [place]. S ee Compliance Stat ement B: [employer] erformed by [employer],[address], [place] [id number] www .[employer]. Ciaran patel do, MD, Lab. Director Franklin MethodistVitamin D 25 hydroxy mqtsr1459-53-35 15:53:58 Test Item Value Reference Range Interpretation Comments Vitamin D, 25-hydroxy 27.3 ng/mL 30-150 L This a ssay reports (test code = 1989-3) the sum of 25-hydroxy jennifer min D3 and 25-hydro xy vitamin D2. Reference range :0-17 years:Deficienc y: less than 20ng/mLOptimum level: greater than or equal to 20 ng/mL.18 years and older:Deficienc y: less than 20ng/mLInsuffic iency : 20-29 ng/mLOp timum Level: 30-80 ng/mLThe assay reportable rang e is 3.4 155.9 ng/m L. Levels higher t grant 150 ng/mL may b e associated with toxicity.If tox icity is clinically suspected and t he reported result is >155.9 ng/mL,co ntact lab for alterna tive methods to obta in a definitive lev el.If separate quantitation of 25-hydroxy jennifer min D3 and 25-hydro xy vitamin D2 is needed, please contact lab for alternative met hods. Lab Interpretation Abnormal (test code = 02991-1) Rich MethodistVitamin B12 dwftw6311-23-85 07:41:09 Test Item Value Reference Range Interpretation Comments Vitamin B12 (test 371 pg/mL 211-946 Significan t overlap code = 2132-9) exists betwee n normal and deficiency states.However, most patients with deficiencies wi ll have Serum B12 <2 00 pg/mL. Rich MethodistFolate kvwwx6261-48-36 07:41:09 Test Item Value Reference Range Interpretation Comments Folate (test code = 2284-8) 10.8 ng/mL 4.8-24.2 Rich MethodistIron qaerk4257-43-37 07:25:55 Test Item Value Reference Range Interpretation Comments Iron level (test code = 2498-4) 27 ug/dL 37-145 L Lab Interpretation (test code = Abnormal 41103-6) Rich MethodistXR Lumbar Spine 1 [id number] 13:14:19Hm Interface, Radiology Results 04/08/2019 1:17 PM CDTEXAMINATION: XR LUMBAR SPINE 1 VWCL INICAL HISTORY: Posterior spinal fusionCOMPARISON: Scoliosis study 02/16/2019IMPRESSION:Posterior spinal fusion extending from the lower thoracic spine to the pelvis with bilateral rods and screws. Hardware appears intact.Improved alignment with partial reduction of the right convex lumbar scoliosis compared with 02/16/2019.HMTW-4BC0920MZGXzdshse MethodistAirway 2019-04-08 09:37:31Hiwot Saucedo MD 04/08/2019 9:38 AMAirwayDate/Time: 04/08/2019 9:37 AMPerformed by: Hiwot Saucedo MDAuthorized by: Hiwot Saucedo MD Location: ORUrgency: Elective Difficult Airway: No Preoxygenated with 100% O2: Yes C-spine Precautions Maintained Throughout: Yes Mask Ventilation: Easy maskFinal Airway Type: Endotracheal airwayFinal Endotracheal Airway: ETTTechnique Used: Direct laryngoscopyBlade Type: MacintoshLaryngoscope Blade/Videolaryngoscope Blade S ize: 3ETT Size (mm): 7.0Placement Verified by: CO2 detection and direct visualization Laryngoscopic view: Grade IIa - partial view of glottisRapid Sequence Induction (RSI): No Modified RSI: Yes Number of Attempts at Approach: [place] Methodistpain management base profile w/confirmation, haygq7474-17-14 15:29:00 Test Item Value Reference Interpretation Comments Range Creatinine (test 30.9 mg/dL > or = 20.0 code = 2161-8) pH (test code = 5.9 4.5-9.0 2756-5) Oxidant (test code = NEGATIVE <200 mcg/mL 49071-9) Benzodiazepines NEGATIVE <100 ng/mL (test code = 3390-2) [employer] oxycodone CONSISTENT A See Note 3 (test code = 19033-5) Cocaine (metab.) NEGATIVE <150 ng/mL (test code = 3393-6) Opiates (test code = POSITIVE <100 ng/mL A 3879-4) Codeine (test code = NEGATIVE <50 ng/mL See Not e 1 4148-9) Hydrocodone (test 388 ng/mL <50 H See Note 1 code = 3681-4) Hydromorphone (test 56 ng/mL <50 H See Note 1 code = 9835-0) Morphine (test code NEGATIVE <50 ng/mL See Note 1 = 3831-5) Norhydrocodone (test 694 ng/mL <50 H See Not e 1 code = 07716-4) Oxycodone (test code NEGATIVE <100 ng/mL = 34991-9) Comment (test code = See Not e 4 Note 1 5172956) This test was developed and i ts analytical performance characteristics have been determined by [employer]. It has not been cleare d or approved by the FDA. This assay has been validated pursu ant to the CLIA regulations and is used for clinic al purposes. Note 2Hydromorphone is a metabolite of hydrocodone as well as a prescribed drug. Note 3Norhydrocodone is a metabolite of Hydrocodone. No te 4This drug test ing is for medical treatment only. Analysis was performed as non-forensic testing and the se results should be used only by healthcare providers to re nder diagnosis or treatment, or t o monitor progres s of medical conditi ons. medMATCH commen ts are: - present when drug test resul ts may be the resu lt of metabolis m of one or more lisa gs or when results are inconsistent with prescribed medication(s) listed. - may b e blank when drug results are consistent with prescribed medication(s) listed. For assistance with interpreting hillary drug results, please contact a [employer] Toxicology Specialist: [phone] ( ), M-F, 8am-6pm ES T. JESUS (test code = FASTING:NOFASTING JESUS) : NO RAC (test code = Performing RAC) Organization Information: Site ID: IG Name: [facility] Lab Address: [address] [place] [id number] Director: Dr. Rajat Celeste Lab Interpretation Abnormal (test code = 92466-1) Hilario PentecostalismUrine [id number] 21:16:16 Test Item Value Reference Range Interpretation Comments Urine culture Mixed evin Specimen isolate (test <=10-3 col/cc InformationSp ecimen code = 70945-4) Source: Urin eSpecimen Site: Clean cat ch Rich MethodistGram ymnvv7351-42-14 21:16:16Gram stain resultRare WBC'sNo organisms seen Comment: Specimen InformationSpecimen Source: UrineSpecimen Site: Clean catch [facility] MethodistECG Pre/Post [id number] 17:19:45 Test Item Value Reference Range Interpretation Comments Ventricular rate (test 93 code = 253) Atrial rate (test code 93 = 255) [place] interval (test code 148 = 266) QRSD interval (test 80 code = 260) QT interval (test code 384 = 264) QTC interval (test code 477 = 265) P axis 1 (test code = 33 267) QRS axis 1 (test code = 9 268) T wave axis (test code 53 = 270) EKG impression (test Normal sinus code = 273) rhythm-Possible Left atrial enlargement-Borderline ECG-In automated comparison with ECG of 16-OCT-2018 14:50,-No significant change was found- Franklin Methodlos alamos medical centerPartial thromboplastin time, ekmbmamyu3898-06-50 17:08:24 Test Item Value Reference Range Interpretation Comments PTT (test code = 27.5 23.0- 36.0 [place] [address]-3) unfractionated heparin is61.0-112.0 se conds which corresponds to Anti-Xa0.3-0.7 U/ml. [facility]inteProthrombin time with [id number] 17:08:19 Test Item Value Reference Range Interpretation Comments Prothrombin time (test 13.0 11.5- 14.5 sec code = 5902-2) INR (test code = 1.0 [facility]) Normalized Rati o (INR) is a therapeutic m onitoring tool for patien ts who are stable on oral anticoagulant t herapy. An INR of 2.0-3.0 is suggested for d eep vein thrombosis/pulm onary embolism. Franklin Methodlos alamos medical centerComprehensive metabolic [id number] 17:01:49 Test Item Value Reference Range Interpretation Comments Sodium (test code = 140 135- 148 mEq/L 2951-2) Potassium (test code = 3.8 3.5- 5.0 mEq/L 2823-3) Chloride (test code = 98 98- 112 mEq/L 5-0) CO2 (test code = 28 24- 31 mEq/L 2027-) Anion gap (test code = 14@ANIO 7- 15 mEq/L 23189-8) BUN (test code = 16 mg/dL 6-20 3094-0) Creatinine (test code = 0.79 mg/dL 0.5-0.9 2160-0) Glucose (test code = 71 mg/dL 65-99 2345-7) Calcium (test code = 10.0 mg/dL 8.3-10.2 89986-0) Protein (test code = 7.1 g/dL 6.3-8.3 [place] 9994.6-7.0 2885-2) g/dL1 rytz4924. 4-7.6 g/dL7 months-5rilv352 .1-7. 3 g/dL1-2 htasf630.6-7.5 g/dL>3 afqkp248.0-8.0 g/qJ05-2937992. 3-8.3 g/dL Albumin (test code = 4.0 g/dL 3.5-5 1751-7) A/G ratio (test code = 1.3 0.7-3.8 1759-0) Alkaline phosphatase 82 U/L 35-104 (test code = 6768-6) AST (test code = 31 U/L 10-35 1920-8) ALT (test code = 25 U/L 5-50 1742-6) Total bilirubin (test 0.5 mg/dL 0-1.2 code = 1975-2) Hilario MethodistEstimated [id number] 17:01:49 Test Item Value Reference Range Interpretation Comments Estimated GFR (test 82 mL/min/1.73 m2 Caterg ory Units code = 5488) InterpretationG 1 >=90 Normal or highG2 60-89 Mildly ruiywyagqU3s 45-59 Mildly to mode rately kblzhxvgtA0z 30-44 Moderately to severely decreasedG4 15-29 Severely decre asedG5 <15 Kidn ey failureThe eGFR was calculated reji chilel the Chronic Kidney Disease Epidemiology Co llaboration (CKD-EPI) equat ion. Interpretation is based on recommendations of the National Kidney Foundation-Kidn ey Disease Outcomes Qualit y Initiative (NKF-KDOQI) pub lished in 2013. Hilario MethodistUrinalysis screen and microscopy, with reflex to culture 2019-03-24 17:01:20 Test Item Value Reference Range Interpretation Comments Specimen site (test code = Clean catch 0860473) Color, UA (test code = 5778-6) Yellow Appearance, UA (test code = Clear 5767-9) Specific gravity, UA (test code = 1.017 1.001-1.035 5811-5) pH, UA (test code = 5803-2) 5.0 5.0-8.5 Protein, UA (test code = 02423-0) Negative Negative Glucose, UA (test code = 86116-2) Negative Negative Ketones, UA (test code = 2514-8) Negative Negative Bilirubin, UA (test code = Negative Negative 5770-3) Blood, UA (test code = 5794-3) Negative Negative Nitrite, UA (test code = 5802-4) Negative Negative Urobilinogen, UA (test code = <2.0 <2.0 62065-7) Leukocyte esterase, UA (test code Trace Negative A = 5799-2) WBC, UA (test code = 5821-4) 3 0- 4 /HPF RBC, UA (test code = 74385-3) 1 0- 5 /HPF Bacteria, UA (test code = Few None seen 23569-3) Yeast, UA (test code = 33729-5) None seen Yeast with pseudohyphae, UA (test None seen code = 11940-2) Hyaline casts, UA (test code = >20 /LPF A 5796-8) Lab Interpretation (test code = Abnormal 56317-8) Franklin NegcuxmchERAODIVXFV3509-29-62 18:23:000.1[facility] HermannHEMATOLOGY 2016-08-10 18:23:000.6[facility] HedzuipDYWKZTOOED2495-91-66 18:23:000.5Memorial MtxszxrYZIHVHFWYT7064-24-58 18:23:007.2[facility] AhomcdrAQGNYYGUJV9348-26-89 18:23:000.4Memoriri XjpqumiBFGNSICLJQ5333-10-28 18:23:000.2[facility] [place] ITTABMCGIF8106-05-03 18:23:006.6[facility] AcptbccTVSFGIAKDZ0923-93-60 18:23:00 88.0Memorial AqgoqneZMOPEGJTAW2049-55-90 18:23:004.6[facility] HermannHEMATOLOGY 2016-08-10 18:23:0010.4Memorial SzlxkrtZDYHVCJLVW1538-45-84 18:23:008.2Memorial WxbaiaxAPFKKRSEOZ0775-33-69 18:23:004.15[facility]orial OilyiquJQNMPDRKDR8078-08-01 18:23:0031.4[facility]orial UvzrwhmPQCWQPYPCO2738-69-54 18:23:0080.0[facility] [place] FKKNHBUWXN0851-27-71 18:23:00 Test Item Value Reference Range Interpretation Comments MCH (test code = MCH) 25.1 pg 27.0-31.0 Memorial QdeitpaEUAGVONDCA3384-01-30 18:23:0033.2[facility] HermannHEMATOLOGY 2016-08-10 18:23:0019.7[facility] AvsbusgAMXVNWTVUC6533-61-11 18:23:007.9[facility]orial NepxypuAZNKQKTPHF8795-40-33 18:23:73290Narttwlb HermannBLOOD BANK RESULTS 2016 11:50:00Negative (02/14/16 6:50 AM)[facility] HermannCHEM LWLDA0835-83-14 11:50:0084[facility] HermannCHEM WIAXC8286-34-10 11:50:0076[facility] HermannCHEM AVMDN1417-26-10 11:50:0016.0[facility] HermannCHEM EJHYJ6872-07-17 11:50:008.2 [facility]annCHE[facility] OVIZV2609-70-56 11:50:0026[facility]annCHEM PANEL 2016 11:50:000.79[facility] HermannCHEM YDIXL7869-91-09 11:50:004.0[facility]annCHEM ZPDLN6392-65-10 11:50:0016[facility] HermannCHEM IKYLM7908-08-62 11:50:98844Jqdflxaw HermannCHEM KCFOV3917-30-19 11:50:50018Numrfxvp Vince XIONHLVYCT6432-77-09 11:50:002.9[facility] JaoqmymYERSGVWWQB8387-00-21 11:50:003.4 [facility] AnsbnlyNTJLCOLFAG3621-96-26 11:50:001.1[facility] HermannHEMATOLOGY 2016 11:50:002.1[facility] TwfbcywNSELTWDLDY3615-64-17 11:50:001+ *ABN*(02/14/16 6:50 AM)[facility] UozhqqhHMLNKASHOW0799-90-63 11:50:000.1[facility] SxxrncbGFNIVCUOWG9978-04-00 11:50:000.2[facility] OomchauWGBLWKWPJY6207-12-18 11:50:000.7[facility] RbsjrtcVYDPEEIGED8463-32-03 11:50:009.5[facility] PLGSBDLPLH5639-64-77 11:50:0039.6[facility] TeajffqGJKQOAJDPM0830-37-75 11:50:00 47.7[facility] KiedykkTYASBEORKX3794-95-07 11:50:007.2[facility] HermannHEMATOLOGY 2016 11:50:65932Isztfbul GeywazoCYIRRWZDKB9169-41-98 11:50:0022.6[facility] MnkalpgKMWJZLTWXM8253-47-00 11:50:0030.2[facility] FudvkoyCLPKRHWSRB7158-55-01 11:50:0080.7[facility] AdoxuobETILAUJMAA6412-03-12 11:50:00 Test Item Value Reference Range Interpretation Comments MCH (test code = MCH) 25.3 pg 27.0-31.0 [facility] TxenhvsNDFUCYGXIU2124-94-65 11:50:0031.3[facility] HermannHEMATOLOGY 2016 11:50:007.2[facility] TdrjcacJCDKRAUTBJ4574-42-61 11:50:003.74[facility] EpxyaroQGIVDXEDTB9165-21-36 11:50:009.5[facility] GbjuwqlWMEOVGDBQ7027-27-97 08:37:0012.0[facility] GggqkjzPSTIVCLTA9532-49-09 08:37:0013[facility] UWRALXOYS5506-27-11 08:37:002.3[facility] GzikekzVHUVBEMBR2868-74-55 08:37:001.3 [facility] BoyhvmuWBYEJAHTL8188-14-11 08:37:0093[facility] HermannCHEMISTRY 2011-08-31 08:37:59229Ymvtelmd BpbmnrgSTURVRLFG4884-72-09 08:37:000.5[facility] KrqfqboFABWWJLWS8858-55-35 08:37:84748Qzrfepwo WnxwrplICJUPJVOZ2655-86-76 08:37:50282Huvbuxyx JqunxlsSZEDLMDVO4744-27-19 08:37:000.6[facility] UBVUZGMWN9223-11-32 08:37:0078[facility] KwdptorTQVGDSVYQ3854-63-93 08:37:008 [facility] HegvqdpICGKZZYSQ4671-41-66 08:37:005.4[facility] HermannCHEMISTRY 2011-08-31 08:37:003.1[facility] MrxrrqwNCFYNBKIR5590-78-91 08:37:004.0[facility] PvgwzzuUVXYAIWUI9072-29-25 08:37:008.1[facility] MzcuqzpBBOLYTVVP0612-27-22 08:37:12131Dotzihgq TugrydcRGSLZKYWQ7922-16-62 08:37:0029[facility] UYQIIZTIJB8917-19-99 08:37:000.1[facility] IxfypfvWTKLPXBUVN0686-13-35 08:37:000.5 [facility] DvknfxpSLDQARFVZW6308-08-04 08:37:000.8[facility] HermannHEMATOLOGY 2011-08-31 08:37:000.1[facility] ZykysaoGSXOSFKUOF7259-04-89 08:37:007.2[facility] YtvhdpuHMXQARARLM8868-00-47 08:37:0084.2[facility] LcyvshjMXUMCVUUVO8258-34-23 08:37:008.8[facility] NllbthjFLUMOYFBIF9253-92-46 08:37:000.8[facility] Vince ZEEGYOEXUP9893-73-55 08:37:006.1[facility] MzbhgvkVCQWFOKXOC2434-53-80 08:37:00 30.4[facility] HwwivxtOMAAQHVVEY9687-67-90 08:37:0032.7[facility] HermannHEMATOLOGY 2011-08-31 08:37:0015.9[facility] PiifwxbZYFBHEGWWU6857-69-89 08:37:00 Test Item Value Reference Range Interpretation Comments MCH (test code = MCH) 28.3 pg 27.0-31.0 N [facility] OmglusaNUCVVJUAHK2262-69-08 08:37:0086.5[facility] HermannHEMATOLOGY 2011-08-31 08:37:008.7[facility] YsaufgyDCWGMTMEIO1067-49-54 08:37:84431Lzbigoan BlzjchrTBUFGETAAH2446-33-96 08:37:008.6[facility] XjaegysCXCFTQNMFF9998-22-09 08:37:0010.0[facility] EgrbyyrGSVDIPLCYX4455-36-03 08:37:003.52[facility] Vince BLOOD BANK LCERNMK0841-38-36 22:00:00Negative (08/24/2011 17:00:00)[facility] SwvadtyPQLDIXKKP6960-94-32 22:00:0029[facility] AzrfdfaEOKZLYFBW1782-66-63 22:00:17993Jdgjwbvj NkglnejMTGEBBCMP4019-51-22 22:00:64128Eizwvrue Vince SVCDACBOU2975-29-90 22:00:004.3[facility] CyjxcvqCIZIEIPRC0109-39-07 22:00:0079 [facility] OpfsetxLBIUUMGDV8556-49-98 22:00:000.3[facility] HermannCHEMISTRY 2011-08-24 22:00:003.9[facility] OkgxwzcDUPZHASOK1286-71-71 22:00:0039[facility] VyuvhutMXGFJMJAA0055-17-67 22:00:008.7[facility] WqhhwztZRDTMBGMR5438-00-15 22:00:007.5[facility] KznmiswVCEHAGWAY9402-61-81 22:00:0014[facility] BIXZWKMPK0170-87-33 22:00:0085[facility] FryqhdyYYNXINVDA8419-67-76 22:00:000.9 [facility] EgeibonNWMFTIMCL2077-32-82 22:00:0027[facility] HermannCHEMISTRY 2011-08-24 22:00:003.6[facility] RjoieqkAOCBTZTVA3231-32-99 22:00:0012.3[facility] PbupidrXPXKPPGEW1768-22-60 22:00:0016[facility] ZnnforsPWMNQWCWZ0243-56-63 22:00:001.1[facility] SwgaxzeBDUOUGNQYI1029-06-37 22:00:000.0[facility] Vince URLARCMISM8801-42-11 22:00:000.5[facility] KqbfpmhPRQCLNORYV1178-25-65 22:00:005.2 [facility] VtvwhvsGWCKKCRZRN0159-48-74 22:00:000.7[facility] HermannHEMATOLOGY 2011-08-24 22:00:0030.8[facility] CxtmuibAZEAJWDSUO0604-18-62 22:00:006.1[facility] ZuuoteaIHKRFDVWIT0236-09-23 22:00:000.1[facility] BckmshuDAFZXSWXCN4535-44-70 22:00:000.5[facility] QqtnazdXFEWKZSLWF4322-48-41 22:00:002.6[facility] Vince QYBACUJTFI0744-08-66 22:00:0061.9[facility] BgomqdtHOOUYPMYPT6273-15-58 22:00:00 Test Item Value Reference Range Interpretation Comments PTT (test code = PTT) 28.5 s 22.9-35.8 N [facility] UubuaicZYKNXNYPOU6714-02-43 22:00:00 Test Item Value Reference Range Interpretation Comments PT (test code = PT) 12.3 s 12.0-14.7 N [facility] HdcdgenSZYKNLAUIF4186-33-61 22:00:000.91[facility] HermannHEMATOLOGY 2011-08-24 22:00:0015.9[facility] BrqdsphPLSPOXFPAN6088-90-66 22:00:0033.1[facility] FftcvgwLJFFEYYYUL0167-99-36 22:00:00 Test Item Value Reference Range Interpretation Comments MCH (test code = MCH) 28.1 pg 27.0-31.0 N [facility] JkyflpjDEZAAMSTNE3213-99-64 22:00:59893Uosbnhro HermannHEMATOLOGY 2011-08-24 22:00:008.1[facility] JbjuxflLTPBBFGCHV5925-22-33 22:00:0012.3[facility] XpvloghEMHYGQMQDA4982-35-11 22:00:0037.1[facility] NbdmckiNNVQZYJAOI2709-44-39 22:00:008.4[facility] TbbzitmWZZDOMJRKN0007-09-19 22:00:004.37[facility] Vince UDNDYWPJPA2700-40-77 22:00:0084.8[facility] HinfdnyDKGSJBHWPK8249-76-11 22:00:00 Negative *NA*(08/24/2011 17:00:00)[facility] FrzdzcaIGOVQGNBKS3481-11-53 21:20:00 Negative mg/dL *NA*(08/24/2011 16:20:00)[facility] TuhlqpuDCNCHZJOXQ9129-12-83 21:20:00Negative mg/dL (08/24/2011 16:20:00)[facility] TiqgdxwMPKFSYWEZR8558-08-80 21:20:00Negative mg/dL *NA*(08/24/2011 16:20:00)[facility] HermannURINALYSIS 2011-08-24 21:20:00Negative (08/24/2011 16:20:00)[facility] HermannURINALYSIS 2011-08-24 21:20:00Negative *NA*(08/24/2011 16:20:00)[facility]annURINALYSIS 2011-08-24 21:20:00Not Indicated *NA*(08/24/2011 16:20:00)[facility] RZWARPRHSY0587-07-54 21:20:00Clear (08/24/2011 16:20:00)[facility] DQUNQQYRKS4260-16-64 21:20:00Yellow *NA*(08/24/2011 16:20:00)[facility] YHMPCOOKQJ2006-42-51 21:20:006.5[facility] NafpdvaWIZSPHYDEB6273-86-19 21:20:00 1.012[facility] QnvspuuLULXXQNMMW7006-68-71 21:20:00Negative (08/24/2011 16:20:00) [facility] ErjnyquLVYYRGZKVD3423-43-68 21:20:00Negative (08/24/2011 16:20:00) [facility]
[2020-02-15] MEDS ORDERED: ONDANSETRON 4 MG/2 ML VIAL ONE (13:24)
[2020-02-15] MEDS ORDERED: HYDROMORPHONE HCL 1 MG/ML INJ ONE (13:24)
--- NOTE | 2020-02-15 14:11 | RAD REPORT ---
EXAM DESCRIPTION: RAD - Hip Left 2 View - 02/15/2020 2:01 pm CLINICAL HISTORY: Left hip pain status post injury FINDINGS: Intertrochanteric fracture involves the left femur with marked varus angulation at the fr acture site. The lesser trochanter is avulsed medially. Fracture extends into the subtrochanteric reg ion. No dislocation
--- NOTE | 2020-02-15 14:13 | RAD REPORT ---
EXAM DESCRIPTION: RAD - Knee Left 3 View - 02/15/2020 2:02 pm CLINICAL HISTORY: Left knee pain status post injury FINDINGS: No fracture is seen. Osteoporosis. Mild lateral subluxation of the tibia on the femur
[2020-02-15] MEDS ORDERED: DIAZEPAM 10 MG/2 ML INJ SYRINGE ONE (14:22)
[2020-02-15] MEDS ORDERED: D5 0.45 NS 1,000 ML IV ONE (14:53)
--- NOTE | 2020-02-15 14:55 | EDPHYS ---
Physician Documentation [facility] Name: Lucrecia Vargas Age: 60 yrs Sex: Female : 1960 Arrival Date: 02/15/2020 Time: 12:42 Bed 5 Private MD: ED Physician Jefferson Pozo HPI: 02/14 13:51 This 60 yrs old Female presents to ER via EMS with complaints of Fall Injury. ma2 13:51 Onset: The symptoms/episode began/occurred acutely, 1 hour(s) ago. Severity of ma2 symptoms: At their worst the symptoms were mild, in the emergency department the symptoms are unchanged. The patient has not experienced similar symptoms in the past. Historical: - Allergies: 12:49 No Known Allergies; sv - Home Meds: 12:49 duloxetine oral oral [Active]; Atenolol Oral [Active]; hydroxychloroquine oral oral sv [Active]; leflunomide oral oral [Active]; losartan oral oral [Active]; Methocarbamol Oral [Active]; Mirtazapine Oral [Active]; Prilosec Oral [Active]; Prednisone Oral [Active]; Vitamin D Oral [Active]; - PMHx: 12:49 acid reflux; Depression; Endometriosis; Hypertension; Rheumatoid Arthritis; Sjogren's sv syndrome; - PSHx: 12:49 Back sx; C1 C2 fusion; laminectomy L4 L5; Cyst removed from spine; Cholecystectomy; sv Gastric Bypass; left foot; right foot; right knee; - Immunization history:: Adult Immunizations up to date. - Social history:: Smoking status: . - Immunization history: Last tetanus immunization: unknown. ROS: 13:51 Constitutional: Negative for fever, chills, and weight loss. ma2 13:51 All other systems are negative. Exam: 13:51 Constitutional: This is a well developed, well nourished patient who is awake, alert, ma2 and in no acute distress. Head/Face: Normocephalic, atraumatic. Chest/axilla: Normal chest wall appearance and motion. Nontender with no deformity. No lesions are appreciated. Cardiovascular: Regular rate and rhythm with a normal S1 and S2. No gallops, murmurs, or rubs. Normal PMI, no JVD. No pulse deficits. Respiratory: Lungs have equal breath sounds bilaterally, clear to auscultation and percussion. No rales, rhonchi or wheezes noted. No increased work of breathing, no retractions or nasal flaring. Abdomen/GI: Soft, non-tender, with normal bowel sounds. No distension or tympany. No guarding or rebound. No evidence of tenderness throughout. Skin: Warm, dry with normal turgor. Normal color with no rashes, no lesions, and no evidence of cellulitis. MS/ Extremity: left hip pain and tpl, and limited ROM, Pulses equal, no cyanosis. Neurovascular intact. Full, normal range of motion. Neuro: Awake and alert, GCS 15, oriented to person, place, time, and situation. Cranial nerves II-XII grossly intact. Motor strength 5/5 in all extremities. Sensory grossly intact. Cerebellar exam normal. Normal gait. Vital Signs: 12:45 BP 126 / 82; Pulse 77; Resp 16; Temp 97.5; Pulse Ox 100% ; Weight 79.38 kg; Height 5 sv ft. 8 in. (172.72 cm); Pain 10/10; 13:45 BP 117 / 84; Pulse 74; Resp 16; Temp 98(TE); Pulse Ox 96% on R/A; sv 14:18 BP 116 / 84; Pulse 75; Resp 14; Pulse Ox 95% on R/A; sv 14:51 Pain 2/10; sv 15:08 BP 114 / 76; Pulse 71; Resp 16; Temp 98; Pulse Ox 100% on R/A; sv 15:50 BP 111 / 75; Pulse 73; Resp 16; Pulse Ox 100% ; sv 16:32 BP 109 / 80; Pulse 69; Resp 16; Pulse Ox 100% on R/A; sv 17:14 BP 109 / 80; Pulse 71; Resp 16; Temp 98.3; Pulse Ox 100% on R/A; sv 12:45 Body Mass Index 26.61 (79.38 kg, 172.72 cm) sv Jessa Coma Score: 12:45 Eye Response: spontaneous(4). Verbal Response: oriented(5). Motor Response: obeys sv commands(6). Total: 15. 13:45 Eye Response: spontaneous(4). Verbal Response: oriented(5). Motor Response: obeys sv commands(6). Total: 15. 14:18 Eye Response: spontaneous(4). Verbal Response: oriented(5). Motor Response: obeys sv commands(6). Total: 15. 15:08 Eye Response: spontaneous(4). Verbal Response: oriented(5). Motor Response: obeys sv commands(6). Total: 15. 15:50 Eye Response: spontaneous(4). Verbal Response: oriented(5). Motor Response: obeys sv commands(6). Total: 15. 16:32 Eye Response: spontaneous(4). Verbal Response: oriented(5). Motor Response: obeys sv commands(6). Total: 15. 17:14 Eye Response: spontaneous(4). Verbal Response: oriented(5). Motor Response: obeys sv commands(6). Total: 15. Trauma Score (Adult): 12:45 Eye Response: spontaneous(1); Verbal Response: oriented(1); Motor Response: obeys sv commands(2); Systolic BP: > 89 mm Hg(4); Respiratory Rate: 10 to 29 per min(4); Jessa Score: 15; Trauma Score: 12 13:45 Eye Response: spontaneous(1); Verbal Response: oriented(1); Motor Response: obeys sv commands(2); Systolic BP: > 89 mm Hg(4); Respiratory Rate: 10 to 29 per min(4); [place] Score: 15; Trauma Score: 12 14:18 Eye Response: spontaneous(1); Verbal Response: oriented(1); Motor Response: obeys sv commands(2); Systolic BP: > 89 mm Hg(4); Respiratory Rate: 10 to 29 per min(4); Jessa Score: 15; Trauma Score: 12 15:08 Eye Response: spontaneous(1); Verbal Response: oriented(1); Motor Response: obeys sv commands(2); Systolic BP: > 89 mm Hg(4); Respiratory Rate: 10 to 29 per min(4); [place] Score: 15; Trauma Score: 12 15:50 Eye Response: spontaneous(1); Verbal Response: oriented(1); Motor Response: obeys sv commands(2); Systolic BP: > 89 mm Hg(4); Respiratory Rate: 10 to 29 per min(4); [place] Score: 15; Trauma Score: 12 16:32 Eye Response: spontaneous(1); Verbal Response: oriented(1); Motor Response: obeys sv commands(2); Systolic BP: > 89 mm Hg(4); Respiratory Rate: 10 to 29 per min(4); Jessa Score: 15; Trauma Score: 12 17:14 Eye Response: spontaneous(1); Verbal Response: oriented(1); Motor Response: obeys sv commands(2); Systolic BP: > 89 mm Hg(4); Respiratory Rate: 10 to 29 per min(4); Jessa Score: 15; Trauma Score: 12 MDM: 12:45 Patient medically screened. tn2 13:51 Differential diagnosis: abrasion, contusion, fracture, sprain, strain. ma2 14:53 Data reviewed: vital signs, nurses notes. Counseling: I had a detailed discussion with ma the patient and/or guardian regarding: the historical points, exam findings, and any diagnostic results supporting the discharge/admit diagnosis, the presence of at least one elevated blood pressure reading (>120/80) during this emergency department visit, the need to transfer to another facility. Response to treatment: the patient's symptoms have markedly improved after treatment. ED course: no ortho oncall or availabl ein our hospital.. patient request transfer to latter-day . 02/14 13:07 Order name: Hip Left 2 View XRAY; Complete Time: 14:30 ma2 02/14 13:07 Order name: Knee Left 3 View XRAY; Complete Time: 14:30 ma2 02/14 14:35 Order name: NPO; Complete Time: 14:37 ma2 02/14 14:35 Order name: Morris; Complete Time: 14:52 ma2 Administered Medications: 13:22 Drug: Zofran (Ondansetron) 4 mg Route: IVP; Site: right wrist; sv 14:15 Follow up: Response: No adverse reaction sv 13:24 Drug: Dilaudid 1 mg {Note: rass2.} Route: IVP; Site: right wrist; sv 14:15 Follow up: Response: No adverse reaction; No change in condition; RASS: Agitated (+2) sv 14:15 Drug: Valium 5 mg Route: IVP; Site: right wrist; sv 14:51 Follow up: Pain 2/10 Adult; Response: No adverse reaction; Marked relief of symptoms; sv Blood sugar is lowered 14:51 Drug: D5-1/2 NS 1000 ml Route: IV; Rate: 100 ml/hr; Site: right wrist; sv 17:23 Follow up: Response: No adverse reaction; IV Status: Infusion continued upon transfer sv Disposition: 02/15/20 14:54 Transfer ordered to [facility]. Diagnosis is Intertrochanteric fracture of femur - Left hip. - Reason for transfer: Higher level of care. - Accepting physician is OS. - Condition is Stable. - Problem is new. - Symptoms are unchanged. Signatures: Dispatcher [employer] EDMarry Viveros RN RN Selene Styles, COMMUNICATIONS DIRECTOR-C COMMUNICATIONS DIRECTOR-Csnw Jefferson Pozo MD MD ma2 Corrections: (The following items were deleted from the chart) 17:23 14:54 02/15/2020 14:54 Transfer ordered to [facility]. Diagnosis is sv Intertrochanteric fracture of femur - Left hip. Reason for transfer: Higher level of care. Accepting physician is OS. Condition is Stable. Problem is new. Symptoms are unchanged. ma2
--- NOTE | 2020-02-15 14:55 | ER ---
Nurse's Notes [facility] Name: Lucrecia Vargas Age: 60 yrs Sex: Female : 1960 Arrival Date: 02/15/2020 Time: 12:42 Bed 5 Private MD: Diagnosis: Intertrochanteric fracture of femur-Left hip Presentation: 02/14 12:32 Chief complaint: EMS states: called out for a fall, pt normally has a right foot boot sv on d/t fractures from last week, but did not have it on today while trying to get into her wheelchair. Pt stated she fell onto tile lanette onto her left hip. Denies head injury or LOC. Vitals stable. Care prior to arrival: None. Mechanism of Injury: Fall from standing position. Trauma event details: Injury occurred in the [facility], Injury occurred: at home. Injury occurred: February 15, 2020. 12:32 Acuity: ROSARIO 3 sv 12:32 Method Of Arrival: EMS: [facility] sv 12:45 Coronavirus screen: Client denies travel out of the [place] in the last 14 days. At this sv time, the client does not indicate any symptoms associated with coronavirus-19. Ebola Screen: No symptoms or risks identified at this time. Initial Sepsis Screen: Does the patient meet any 2 criteria? No. Patient's initial sepsis screen is negative. Does the patient have a suspected source of infection? No. Patient's initial sepsis screen is negative. Risk Assessment: Do you want to hurt yourself or someone else? Patient reports no desire to harm self or others. Onset of symptoms was February 15, 2020. Trauma Activation: Not Applicable Physician: ED Physician; Name: ; Notified At: ; Arrived At: Physician: General Surgeon; Name: ; Notified At: ; Arrived At: Physician: Radiology; Name: ; Notified At: ; Arrived At: Physician: Respiratory; Name: ; Notified At: ; Arrived At: Physician: Lab; Name: ; Notified At: ; Arrived At: Historical: - Allergies: 12:49 No Known Allergies; sv - Home Meds: 12:49 duloxetine oral oral [Active]; Atenolol Oral [Active]; hydroxychloroquine oral oral sv [Active]; leflunomide oral oral [Active]; losartan oral oral [Active]; Methocarbamol Oral [Active]; Mirtazapine Oral [Active]; Prilosec Oral [Active]; Prednisone Oral [Active]; Vitamin D Oral [Active]; - PMHx: 12:49 acid reflux; Depression; Endometriosis; Hypertension; Rheumatoid Arthritis; Sjogren's sv syndrome; - PSHx: 12:49 Back sx; C1 C2 fusion; laminectomy L4 L5; Cyst removed from spine; Cholecystectomy; sv Gastric Bypass; left foot; right foot; right knee; - Immunization history:: Adult Immunizations up to date. - Social history:: Smoking status: . - Immunization history: Last tetanus immunization: unknown. Screenin:52 Abuse screen:. Tuberculosis screening: No symptoms or risk factors identified. sv 12:52 Nutritional screening: No deficits noted. Fall Risk No fall in past 12 months (0 pts). sv Secondary diagnosis (15 points) impaired mobility, IV access (20 points). Ambulatory Aid- None/Bed Rest/Nurse Assist (0 pts). Gait- Normal/Bed Rest/Wheelchair (0 pts) Mental Status- Oriented to own ability (0 pts). Total Fairchild Fall Scale indicates Low Risk Score (25-44 pts). Fall prevention measures have been instituted. Side Rails Up X 2 Placed close to Nursing Station Frequent Obs/Assesments occuring As available Patient and Family Educated on Fall Prevention Program and strategies. Primary Survey: 12:32 NO uncontrolled hemorrhage observed. A: The patient is alert. Airway: patent, No sv supplemental oxygen in use on arrival. Oral cavity: clear, Trachea midline. Breathing/Chest: Respiratory pattern: regular, Respiratory effort: spontaneous, unlabored, Chest inspection: symmetrical rise and fall of the chest. Circulation: Pulses: palpable right radial artery, right dorsalis pedis artery, left radial artery and left dorsalis pedis artery. Skin color: pink, Skin temperature: warm, dry. Disability Alert. Exposure/Environment: All clothing and personal items were removed. Forensic evidence collection is not deemed to be indicated at this time. Items placed in patient belonging bag. There is no evidence of uncontrolled external bleeding. No obvious injuries are noted at this time. A warming method has been applied: A warm blanket has been provided to the patient. 13:45 Reassessment Airway Airway Patent Oxygen No O2 Oral cavity Clear Trachea Midline sv Breathing/Chest Respiratory pattern Regular Respiratory effort Spontaneous Unlabored Chest inspection Symmetrical Circulation Heart rhythm Sinus rhythm Pulses Palpable Color [place] Temperature Warm Dry Disability Alert. Secondary Survey: 12:32 HEENT: No deficits noted. Gastrointestinal: No deficits noted. : No deficits noted. sv No signs and/or symptoms were reported regarding the genitourinary system. Musculoskeletal: Range of motion: limited in left hip Reports pain in left gluteus ariana and left hip. Assessment: 14:53 Reassessment: Patient appears in no apparent distress at this time. Patient and/or sv family updated on plan of care and expected duration. Pain level reassessed. Patient is alert, oriented x 3, equal unlabored respirations, skin warm/dry/pink. Patient states feeling better. Patient states symptoms have improved. 15:50 Reassessment: Patient appears in no apparent distress at this time. Patient and/or sv family updated on plan of care and expected duration. Pain level reassessed. Patient is alert, oriented x 3, equal unlabored respirations, skin warm/dry/pink. Patient states feeling better. Patient states symptoms have improved. 16:30 Reassessment: Patient appears in no apparent distress at this time. Patient and/or sv family updated on plan of care and expected duration. Pain level reassessed. Patient is alert, oriented x 3, equal unlabored respirations, skin warm/dry/pink. Patient states feeling better. Patient states symptoms have improved. 17:15 Reassessment: Patient appears in no apparent distress at this time. Patient and/or sv family updated on plan of care and expected duration. Pain level reassessed. Patient is alert, oriented x 3, equal unlabored respirations, skin warm/dry/pink. Report given to [facility] Patient states feeling better. Patient states symptoms have improved. Vital Signs: 12:45 BP 126 / 82; Pulse 77; Resp 16; Temp 97.5; Pulse Ox 100% ; Weight 79.38 kg; Height 5 sv ft. 8 in. (172.72 cm); Pain 10/10; 13:45 BP 117 / 84; Pulse 74; Resp 16; Temp 98(TE); Pulse Ox 96% on R/A; sv 14:18 BP 116 / 84; Pulse 75; Resp 14; Pulse Ox 95% on R/A; sv 14:51 Pain 2/10; sv 15:08 BP 114 / 76; Pulse 71; Resp 16; Temp 98; Pulse Ox 100% on R/A; sv 15:50 BP 111 / 75; Pulse 73; Resp 16; Pulse Ox 100% ; sv 16:32 BP 109 / 80; Pulse 69; Resp 16; Pulse Ox 100% on R/A; sv 17:14 BP 109 / 80; Pulse 71; Resp 16; Temp 98.3; Pulse Ox 100% on R/A; sv 12:45 Body Mass Index 26.61 (79.38 kg, 172.72 cm) sv [place] Coma Score: 12:45 Eye Response: spontaneous(4). Verbal Response: oriented(5). Motor Response: obeys sv commands(6). Total: 15. 13:45 Eye Response: spontaneous(4). Verbal Response: oriented(5). Motor Response: obeys sv commands(6). Total: 15. 14:18 Eye Response: spontaneous(4). Verbal Response: oriented(5). Motor Response: obeys sv commands(6). Total: 15. 15:08 Eye Response: spontaneous(4). Verbal Response: oriented(5). Motor Response: obeys sv commands(6). Total: 15. 15:50 Eye Response: spontaneous(4). Verbal Response: oriented(5). Motor Response: obeys sv commands(6). Total: 15. 16:32 Eye Response: spontaneous(4). Verbal Response: oriented(5). Motor Response: obeys sv commands(6). Total: 15. 17:14 Eye Response: spontaneous(4). Verbal Response: oriented(5). Motor Response: obeys sv commands(6). Total: 15. Trauma Score (Adult): 12:45 Eye Response: spontaneous(1); Verbal Response: oriented(1); Motor Response: obeys sv commands(2); Systolic BP: > 89 mm Hg(4); Respiratory Rate: 10 to 29 per min(4); [place] Score: 15; Trauma Score: 12 13:45 Eye Response: spontaneous(1); Verbal Response: oriented(1); Motor Response: obeys sv commands(2); Systolic BP: > 89 mm Hg(4); Respiratory Rate: 10 to 29 per min(4); [place] Score: 15; Trauma Score: 12 14:18 Eye Response: spontaneous(1); Verbal Response: oriented(1); Motor Response: obeys sv commands(2); Systolic BP: > 89 mm Hg(4); Respiratory Rate: 10 to 29 per min(4); [place] Score: 15; Trauma Score: 12 15:08 Eye Response: spontaneous(1); Verbal Response: oriented(1); Motor Response: obeys sv commands(2); Systolic BP: > 89 mm Hg(4); Respiratory Rate: 10 to 29 per min(4); [place] Score: 15; Trauma Score: 12 15:50 Eye Response: spontaneous(1); Verbal Response: oriented(1); Motor Response: obeys sv commands(2); Systolic BP: > 89 mm Hg(4); Respiratory Rate: 10 to 29 per min(4); [place] Score: 15; Trauma Score: 12 16:32 Eye Response: spontaneous(1); Verbal Response: oriented(1); Motor Response: obeys sv commands(2); Systolic BP: > 89 mm Hg(4); Respiratory Rate: 10 to 29 per min(4); [place] Score: 15; Trauma Score: 12 17:14 Eye Response: spontaneous(1); Verbal Response: oriented(1); Motor Response: obeys sv commands(2); Systolic BP: > 89 mm Hg(4); Respiratory Rate: 10 to 29 per min(4); [place] Score: 15; Trauma Score: 12 ED Course: 12:42 Patient arrived in ED. sv 12:43 Marry Arthur RN is Primary Nurse. sv 12:45 Jefferson Pozo MD is Attending Physician. ma2 12:45 Triage completed. sv 12:45 Thermoregulation: warm blanket given to patient. sv 12:46 Arm band placed on. sv 12:52 Patient maintains SpO2 saturation greater than 95% on room air. sv 12:53 Patient has correct armband on for positive identification. Bed in low position. Call sv light in reach. Side rails up X2. groundwater monitoring technician on. Pulse ox on. NIBP on. Door closed. 13:01 EKG done, by ED staff, reviewed by Jefferson Pozo MD. mh5 13:20 Inserted saline lock: 22 gauge in right wrist, using aseptic technique. ,using aseptic sv technique. diffusics. 14:02 Hip Left 2 View XRAY In Process Unspecified. EDMS 14:02 Knee Left 3 View XRAY In Process Unspecified. EDMS 14:18 Awaiting disposition, Awaiting re-evaluation by ER provider. sv 14:36 initiated a transfer with Nat from the [facility] center at the request of the eb patient/ Nat says she will have to page the patient's orthopedic through his office and she will call us back when she gets him on the line. 14:45 Morris cath inserted, using sterile technique, 16 Fr., by ak, balloon inflated, to sv gravity drainage, returned clear yellow urine. Patient tolerated well. 14:52 IV is patent, is intact, with fluids infusing freely. sv 15:50 transfer approval from receiving facility. sv 16:10 administrative approval given by Nat Shine Transit Operator/ patient has been eb accepted to [place] [id number]/ Brit [facility]ke[facility] has accepted the patient in transfer without conference / report to be called to [phone]. 16:33 No provider procedures requiring assistance completed. Patient transferred, IV remains sv in place. intact. 16:49 transfer transportation to receiving facility. sv Administered Medications: 13:22 Drug: Zofran (Ondansetron) 4 mg Route: IVP; Site: right wrist; sv 14:15 Follow up: Response: No adverse reaction sv 13:24 Drug: Dilaudid 1 mg {Note: rass2.} Route: IVP; Site: right wrist; sv 14:15 Follow up: Response: No adverse reaction; No change in condition; RASS: Agitated (+2) sv 14:15 Drug: Valium 5 mg Route: IVP; Site: right wrist; sv 14:51 Follow up: Pain 2/10 Adult; Response: No adverse reaction; Marked relief of symptoms; sv Blood sugar is lowered 14:51 Drug: D5-1/2 NS 1000 ml Route: IV; Rate: 100 ml/hr; Site: right wrist; sv 17:23 Follow up: Response: No adverse reaction; IV Status: Infusion continued upon transfer sv Intake: 12:45 PO: 0ml; Total: 0ml. sv 13:45 PO: 0ml; Total: 0ml. sv Output: 12:45 Urine: 0ml; Total: 0ml. sv 13:45 Urine: 0ml; Total: 0ml. sv 17:17 Urine: 950ml (Morris); Total: 950ml. sv Outcome: 14:54 ER care complete, transfer ordered by MD. beck 16:32 Transferred by ground EMS to [facility], Transfer form completed. X-rays sv sent w/ patient. Note: Report given to Bear COLE 16:32 Condition: stable 16:32 Instructed on the need for transfer. 16:50 Patient's length of stay in the Emergency Department was greater than 2 hours. d/t sv transferPatient's length of stay extended due to 17:23 Patient left the ED. sv Signatures: Dispatcher [employer] Marry Dillon RN RN sv Martinez, Maria Jefferson Ortiz MD MD ma2 Brenda Baldwin Corrections: (The following items were deleted from the chart) 17:18 17:14 BP 109 / 80; Pulse 71bpm; Resp 16bpm; Pulse Ox 100% RA; sv sv
[2020-02-16 05:02] VITALS: O2SAT 100
[2020-02-16 05:05] VITALS: BP 109/80
[2020-02-16 05:06] VITALS: TEMP 98.3
--- NOTE | 2020-02-16 20:02 | EKG ---
Test Date: 2020-02-15 Test Time: 12:58:10 Metal Hanging Supervisor: NATALIE MEASUREMENT RESULTS: Intervals: Rate: 76 CT: 156 QRSD: 70 QT: 434 QTc: 488 [place]: P: 39 CT: 156 QRS: 24 T: 31 INTERPRETIVE STATEMENTS: Normal sinus rhythm Prolonged QT Abnormal ECG Compared to ECG 09/26/2016 11:28:49 Prolonged QT interval now present Electronically Signed On 02-16-20 19:59:28 CDT by [place]
== END 2020-02-15 17:23 | disposition short-term general hospital (02) ==
LOC: ER 12:40
DX: S72.142A Displaced intertrochanteric fracture of left femur, initial encounter for closed fracture (principal); W19.XXXA Unspecified fall, initial encounter; Y93.9 Activity, unspecified; Y92.9 Unspecified place or not applicable; I10 Essential (primary) hypertension; F32.9 Major depressive disorder, single episode, unspecified; Z98.84 Bariatric surgery status
CPT/HCPCS: 96361; 93005; 73502; 73562; 51702; 96375; 96374; 99285; J3360; J1170; J7799; J2405

== ENCOUNTER 2020-08-31 16:36 | Emergency (ER) | payer OTHER ==
--- OUTSIDE RECORDS SUMMARY | 2020-08-31 16:42 | XMS REPORT | Continuity of Care Document ---
:1960 Author Organization [facility] t Address [address] [place] [address] Care Team Providers Name Role Phone PEPITO Attending Clinician Unavailable DALE Attending Clinician Unavailable LEV Attending Clinician Unavailable Arturo ISABEL S Attending Clinician Doctor Unassigned, Name Attending Clinician Unavailable JOSE Attending Clinician Unavailable MELIDA Attending Clinician Unavailable Aziza Goldstein Attending Clinician She Le Attending Clinician Jessica Douglas Attending Clinician Melissa Angel Attending Clinician Ulysses Chiang Jr Attending Clinician Darci Anaya Jr Attending Clinician PEPITO Admitting Clinician Unavailable JOSHUA Admitting Clinician Unavailable LEV Admitting Clinician Unavailable Aziza Goldstein Admitting Clinician Payers Payer Name Policy Type Policy Number Effective Date Expiration Date S ource Problems Condition Condition Condition Status Onset Resolution Last Treating Co mments Source Name Details Category Date Date Treatment Clinician Date LUMBAR Diagnosis Active 2016-08-14 Mem oria HERNIATED - 07:03:00 l DISC LUMBAR 00:00: Vince HERNIATED 00 DISC Active 08/06/2016 [facility] M54.16 - Diagnosis Active 2016-1 2016-05-19 M emoria "RADICULOP 0-24 16:22:00 l ATHY, M54.16 - 00:01: Tomy n LUMBAR "RADICULOP 00 REGION" ATHY, LUMBAR REGION" Active 04/02/2016 [facility] Inna HERNIATED Diagnosis Active 2016-08-28 Memoria DISCS 8-24 18:04:00 l 00:00: Steele HERNIATED 00 DISCS Active 02/01/2016 [facility] M25.561 - Diagnosis Active 2014-062015-05-17 Memoria PAIN IN 1-20 12:44:00 l RIGHT KNEE M25.561 00:01: Her felder - PAIN IN 00 RIGHT KNEE Active 04/29/2015 [facility] [place] GERD,[id number] Diagnosis Active 2012-12-02 Memoria 6-20 10:06:00 l 00:00: Vince GERD,[id number] 00 Active 11/27/2012 [facility] GASTROGAST Diagnosis Active 2011-08-30 Memoria DWIGHT 3-14 15:24:00 l FISTULA 00:00: Vince GASTROGAST 00 DWIGHT FISTULA Active 08/22/2011 [facility] Anxiety Problem Active 2017-11-26 Teofilo osiris (finding) 06-10 13:22:41 l Anxiety 00:00: Vince (finding) 00 Active 06/10/2011 Problem 11/26/2017 Medical [place] [place], RACHELLE Clarke,[facility], OPID [place] Anxiety Problem Active 2012-12-04 Teofilo osiris - 20:55:13 l Anxiety 00:00: Steele 00 Active 06/10/2011 Problem 12/04/2012 RACHELLE Clarke,[facility] GERD Diagnosis Active 2010-062011-06-12 Mem oria 530.11 - 09:55:00 l GERD 00:00: Vince 530.11 00 Active 06/07/2011 [facility] Abdominal Problem Active 2017-11-26 Me moria pain 13:22:41 l (finding) Steele Abdominal pain (finding) Active Problem 11/26/2017 Medical [facility] [place],[facility], RACHELLE Clarke,[facility], OPID [place] Depressive Problem Active 2017-11-26 M emoria disorder 13:22:41 l (disorder) Tomy n Depressive disorder (disorder) Active Problem 11/26/2017 Medical Group,[facility] [place],[facility], OP[facility] Vince, OPID [facility], [facility] [place] History of Problem Active 2017-11-26 M emoria - 13:22:41 l arthrodesi History Her felder s of - (context-d arthrodesi ependent s category) (context-d ependent category) Active Problem 11/26/2017 Medical Group,[facility] [place] Neuro,[facility], OPID Steele,[facility], OPID [place] Hypertensi Problem Active 2017-11-26 M emoria ve 13:22:41 l disorder, Vince systemic Hypertensi arterial ve (disorder) disorder, systemic arterial (disorder) Active Problem 11/26/2017 Medical [facility] her Neuro,[facility], OPID Vince, OPID [facility], OPID [place] Pain Problem Active 2017-11-26 Memor ia (finding) 13:22:41 l Pain Vince (finding) Active Problem 11/26/2017 Medical [facility] [place],[facility], OPID Vince, OPID [facility], OP[facility] [place] Prolapsed Problem Active 2017-11-26 Me moria lumbar 13:22:41 l interverte Tomy n bral disc Prolapsed (disorder) lumbar interverte bral disc (disorder) Active Problem 11/26/2017 Medical Group,[facility] [place],[facility], OPID [place], OPID [facility], OP[facility] [place] Rectal Problem Active 2017-11-26 Memor ia hemorrhage 13:22:41 l (disorder) Rectal Herm cielo hemorrhage (disorder) Active Problem 11/26/2017 Medical Group,[facility] [place],[facility], OPID Steele, OPID [facility], OP[facility] [place] Reflux Problem Active 2017-11-26 Memor ia (finding) 13:22:41 l Reflux Vince (finding) Active Problem 11/26/2017 Medical Group,[facility] [place],[facility], OPID Steele, OPID [facility], OP[facility] [place] Rheumatoid Problem Active 2017-11-26 M emoria arthritis 13:22:41 l (disorder) Tomy n Rheumatoid arthritis (disorder) Active Problem 11/26/2017 Medical Group,Misc her Neuro,[facility], OPID Vince,[facility], OPIShannon CharlesBluf[place] Reflux Problem Active 2012-12-04 Memor ia 20:55:13 l Reflux Vince Active Problem 12/04/2012 OPID Steele,[facility] Abdominal Problem Active 2012-12-04 Me moria pain 20:55:13 l Vince Abdominal pain Active Problem 12/04/2012 [facility] Depression Problem Active 2012-12-04 M emoria 20:55:13 l Steele Depression Active Problem 12/04/2012 [facility] Pain Problem Active 2012-12-04 Memor ia 20:55:13 l Pain Steele Active Problem 12/04/2012 OP[facility] Vince,[facility] Rectal Problem Active 2012-12-04 Memor ia bleeding 20:55:13 l Rectal Vince bleeding Active Problem 12/04/2012 [facility] Rheumatoid Problem Active 2012-12-04 M emoria arthritis 20:55:13 l Steele Rheumatoid arthritis Active Problem 12/04/2012 [facility] ADMINISTRT Diagnosis Active 2011-08-30 Memoria VE ENCOUNT 15:24:00 l NOS Steele ADMINISTRT VE ENCOUNT NOS Active [facility] 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 Dolores 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 [facility] Scoliosis, Problem 2017-11-25 M emoria unspecifie 14:11:46 l d Steele Scoliosis, unspecifie d 11/25/2017 RACHELLE [place] Low back Problem 2017-11-25 Mem oria pain 14:11:46 l Low back Tomy n pain 8 RACHELLE [place] Radiculopa Problem 2017-11-25 M emoria thy, 14:11:46 l lumbar Steele region Radiculopa thy, lumbar region 11/25/2017 OPIShannon [place] Other Problem 2017-11-25 Memor ia specified 14:11:46 l disorders Other Tomy n of bone specified density disorders and of bone structure, density other site and structure, other site 11/25/2017 RACHELLE [place] Ankylosing Problem Resolve 2017-11-26 Memoria spondyliti d 13:22:41 l melissa Vince (disorder) Ankylosing spondyliti s (disorder) Resolved Problem 11/26/2017 Medical [facility] [place],[facility], RACHELLE Vince,[facility], RACHELLE [place] Endometrio Problem Resolve 2017-11-26 Memoria sis d 13:22:41 l (disorder) Tomy n Endometrio sis (disorder) Resolved Problem 11/26/2017 Medical [facility] [place],[facility], SHANNONShannon Clarke,[facility], RACHELLE [place] Ankylosing Problem Resolve 2012-12-04 Memoria spondyliti d 20:55:13 l melissa Vince Ankylosing spondyliti s Resolved Problem 12/04/2012 [facility] Endometrio Problem Resolve 2012-12-04 Memoria sis d 20:55:13 l Vince Endometrio sis Resolved Problem 12/04/2012 [facility] History of Past Illness Condition Condition Condition Status Onset Resolution Last Treating Co mments Source Name Details Category Date Date Treatment Clinician Date Sacrococcy Problem 2017-2017-11-25 2017-11-25 Memoria geal 3-17 14:11:46 14:11:46 l disorders, 04:39: Tomy n not Sacrococcy 49 elsewhere geal classified disorders, not elsewhere classified 08/24/2017 [facility] Allergies, Adverse Reactions, Alerts Allergy Allergy Status Severity Reaction(s) Onset Inactive Treating Comm ents Source Name Type Date Date Clinician No Known DA Active U [facility] [place] No Known DA [facility] U 2017[facility]0 [facility] [place] [facility] NKFA NKFA Active [facility] Clarke Social History Social Habit Start Date Stop Date Quantity Comments Source Social History 2017-05-20 2017-05-20 Cris bahena 20:44:19 20:44:19 Smoking Status Start Date Stop Date Source Social History Cris Clarke Medications Ordered Filled Start Stop Current Ordering Indication Dosage Frequency Signature Comments Components Source Medication Medication Date Date Medication? Clinician (SIG) Name Name pregabalin Yes 100 mg = 2 M emoria 50 MG Oral 1-31 cap, PO, l Capsule 14:03: TID, # 180 Herm cielo [Lyrica] 00 cap, 2 Refill(s), called to pharmacy pregabalin No 100 mg = 2 M emoria 50 MG Oral 1-30 cap, PO, l Capsule 20:59: TID, # 180 Herm cielo [Lyrica] 00 cap, 1 Refill(s), called to pharmacy [facility] 2016-06 Yes 1 - 2 tab, Memoria [...] Refill(s), [Cymbalta] Pharmacy: [facility] [address] [place] [address] 2016-06 Yes 1 tab, PO, Memoria en 325 MG / 1-20 Q6H, PRN l Hydrocodone 16:26: for pain, H ermann Bitartrate 00 # 24 tab, 10 MG Oral 0 Tablet Refill(s) [[place] 10/325] Ondansetron No Notes: Teofilo osiris 08-14 (Same as: l 18:29: Zofran) MEDICATION WASTE Product Size: 4 mg Product Wasted: ___ mg Oxycodone No Notes: Memori a 08-14 (Same as: l 18:29: Roxicodone ) Labetalol No 10 mg, 2 Teofilo osiris 3-07 mL, Route: l 18:29: IVP, Drug form: INJ, Q5Min, Dosing Weight 77.273, kg, PRN Elevated BP, Start date: 08/14/16 12:29: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, Duration: 5 doses or times, Stop date: Limited # of times Naloxone No Notes: Memoria 08-14 Same as l 18:29: Narcan Flumazenil No Notes: Memor ia 08-14 (Same as: l 18:29: Romazicon) Hydromorpho No Notes: Teofilo osiris ne 08-14 Same as: l 18:29: Dilaudid Acetaminoph Yes 1 tab, PO, Memoria en 325 MG / 08-14 Q6H, 0 l Hydrocodone 13:50: Refill(s) H ermann Bitartrate 00 10 MG Oral Tablet [[place] 10/325] Methocarbam Yes 500 mg = 1 Memoria ol 500 MG 08-14 tab, PO, l Oral Tablet 12:19: QID, PRN He rmann [Robaxin] 00 muscle pain, X 14 day, [...] mg = 1 Mem oria Sodium 100 3-07 cap, PO, l MG Oral 12:19: BID, PRN Tomy n Capsule 00 Constipati [Colace] on, # 60 cap, 0 Refill(s) omeprazole Yes 20 mg = 1 Me moria 20 mg oral 3-03 tab, PO, l enteric 17:32: Daily, # Tomy n coated 00 30 tab, 3 tablet Refill(s) Streptococc No Notes: Teofilo osiris us 02-14 Lightly l pneumoniae 14:00: roll vial He rmann serotype 1 00 (DO NOT capsular SHAKE) antigen before diphtheria administra [id number] tion. protein (Same as: conjugate Prevnar vaccine / 13) Streptococc us pneumoniae serotype 14 capsular antigen diphtheria [id number] protein conjugate vaccine / Streptococc us pneumoniae serotype 18C capsular antigen d Methocarbam Yes 1,000 mg = Memoria ol 500 MG 02-14 2 tab, PO, l Oral Tablet 12:06: QID, X 10 H ermann [Robaxin] 00 day, # 80 tab, 0 Refill(s) Famotidine Yes 20 mg = 1 Me moria 20 MG Oral 02-14 tab, PO, l Tablet 12:06: BID, # 60 Tomy n [Pepcid] 00 tab, 0 Refill(s) {21 Yes See Memoria (Methylpred 02-14 Instructio l [...] [Colace] on, # 20 cap, 0 Refill(s) Cefazolin No Notes: Memori a 02-13 (Same As: l 20:00: Ancef, Steele 00 Kefzol) MEDICATION WASTE Product Size: 1000 mg Product Wasted: ___ mg Dexamethaso No Notes: Teofilo osiris ne 02-13 Concentrat l 17:00: ion: Vince 00 4mg/ml pantoprazol No Notes: Teofilo osiris e 02-13 Tablet l 15:05: should not Vince 00 be chewed or crushed. (Same as: Protonix) Losartan No Notes: Memoria 02-13 (Same as: l 15:05: Cozaar) Vince Labetalol No 10 mg, Memori a 02-13 Route: l 14:15: IVP, Steele 00 Q5Min, Dosing Weight 79.545, kg, PRN [...] Memoria 02-13 (Same as: l 14:00: Cymbalta) Steele 00 (Do Not Crush) Robaxin No Notes: Memoria 02-13 (Same l 14:00: as:Robaxin Steele 00 ) Famotidine No Notes: Memor ia 02-13 (Same as: l 14:00: Pepcid) Vince Can be dilute in 5-10cc NS IVP: Slow IV push over at least 2 minutes. Docusate No Notes: Memoria Sodium 100 02-13 (Same as: l MG Oral 14:00: Colace) Vince Capsule 00 (Do Not Crush) Naloxone No Notes: Memoria 02-13 Same as l 13:33: Narcan Steele 00 Flumazenil No Notes: Memor ia 02-13 (Same as: l 13:33: Romazicon) Steele 00 Ondansetron No Notes: Teofilo osiris 02-13 (Same as: l 13:33: Zofran) Vince 00 MEDICATION WASTE Product Size: 4 mg Product Wasted: ___ mg Hydromorpho No Notes: Teofilo osiris ne 02-13 Same as: l 13:33: Dilaudid Vince Hydralazine No Notes: Teofilo osiris 02-13 (Same as: l 13:33: Apresoline Steele 00 ) Push over 5 minutes Regular No 60 Memoria Insulin, - units) l Human 100 13:13: WASTE: F/P He rmann UNT/ML 00 - Black; E Injectable - Solution Municipal Trash Bin Stable for 28 days at room temperatur e Expires in days from ____Date Dextrose No 6.25 gm, Memor ia 50% Syringe 02-13 12.5 mL, l 13:13: Route: Steele 00 IVP, Drug Form: INJ, Dosing Weight 79.545, kg, PRN, PRN Abnormal Lab Result, Start date: 02/14/16 8:13:00 CDT, Duration: 30 day, Stop date: 03/15/16 8:12:00 CDT Acetaminoph No Notes: Do M emoria en 325 MG / 02-13 not exceed l Hydrocodone 13:13: 4gm/day of Steele Bitartrate 00 acetaminop 10 MG Oral hen. Tablet (Same as: [[place] 10/325] 325/10) phenol 5 No Notes: Memoria MG/ML 02-13 Chlorasept l Mucosal 13:13: ic [place] Tomy n [place] 00 (Same as: Chlorasept ic, Sore Throat [place]) WASTE: F/P - Black; E - Municipal Trash Bin Ondansetron No Notes: Teofilo osiris 02-13 (Same as: l 13:13: Zofran) Steele 00 MEDICATION WASTE Product Size: 4 mg Product Wasted: ___ mg Morphine No Notes: Memoria 02-13 (Same l 13:13: as:MORPhin Steele 00 e Sulfate) Sodium No 1,000 mL, Memori a Chloride 02-13 Rate: 50 l 0.154 13:13: ml/hr, Steele MEQ/ML 00 Infuse Injectable over: 20 Solution hr, Route: IV, Dosing Weight 79.545 kg, Total Volume: 1,000, Start date: 02/14/16 8:13:00 CDT, Duration: 30 day, Stop date: 03/15/16 8:12:00 CDT Ancef + No Notes: Memoria sodium 02-13 (Same As: l chloride 12:27: Ancef, Steele 0.9% INJ 00 Kefzol) 100 mL MEDICATION WASTE Product Size: 1000 mg Product Wasted: ___ mg ceFAZolin No Notes: Memori a 02-12 Same as: l 04:00: Ancef Steele 00 Celebrex 50 Yes 50 mg, 1 Me moria mg oral 6-25 cap, PO, l capsule 16:16: BID, 60 Vince 49 cap, Substituti on Allowed, CAP Cymbalta 60 Yes 60 mg, 1 Me moria mg oral 6-25 cap, PO, l delayed 16:16: Daily, Steele release 21 Substituti capsule on Allowed methotrexat [...] 3-24 [place] tab, l 02:00: Route: PO, Steele 00 Drug form: TAB, Bedtime, Start date: 08/31/11 21:00:00, Duration: 30 day, Stop date: 09/29/11 21:00:00 Prozac No Ketan 20 mg, 1 Mem oria 3-23 [place] cap, l 17:38: Route: PO, Vince 00 Drug form: CAP, QAM, Start date: [...] [place] 20.3 mL, l 16:01: Route: PO, Vince 00 Drug form: LIQ, Q4H, PRN Pain [...] [place] unit, 1 l 03:00: mL, Route: Steele 00 SUB-Q, Drug form: INJ, ONCE, Start date: 08/30/11 22:00:00, Stop date: 08/30/11 22:00:00 Pepcid No Ketan 20 mg, 2 Mem oria 3-23 [place] mL, Route: l 02:00: IVP, Drug Vince 00 form: INJ, Q12H, Start date: 08/30/11 21:00:00, Duration: 30 day, Stop date: 09/29/11 9:00:00 Reglan No Ketan 10 mg, 2 Mem oria 3-22 [place] mL, Route: l 23:00: IVP, Drug Steele 00 form: INJ, Q8H, Start date: 08/30/11 18:00:00, Duration: 2 day, Stop date: 09/01/11 10:00:00 Tylenol 2011- No Ketan 650 mg, 1 M emoria 3-22 [place] supp, l 21:50: Route: ME, Vince 00 Drug form: SUPP, Q4H, PRN Fever, Start date: 08/30/11 16:50:00, Duration: 30 day, Stop date: 09/29/11 16:49:00 Phenergan 2011- No Ketan 25 mg, 1 Memoria 3-22 [place] mL, Route: l 21:49: IM, Drug form: INJ, Q4H, PRN Nausea, Start date: 08/30/11 16:49:00, Duration: 30 day, Stop date: 09/29/11 16:48:00 Lactated 2011-0 No Ketan 1,000 mL, Memoria Ringers 3-22 [place] Rate: 125 l Injection 21:49: ml/hr, Tomy n IV 1,000 mL 00 Infuse over: 8 hr, Route: IV, Dosing Weight 80.256 kg, Total Volume: 1,000, Start date: 08/30/11 16:49:00, Duration: 1 day, Stop date: 08/31/11 16:48:00 morphine 2011- No Bassem D 2 mg, 1 Mem oria Sulfate 3-22 Wells mL, Route: l 18:46: IVP, Drug form: INJ, ONCE, Start date: 08/30/11 13:46:00, Stop date: 08/30/11 13:46:00 Phenergan 2011-0 No Bassem D 6.25 mg, M emoria 3-22 [place] Route: l 18:33: IVPB, Steele 00 ONCE, Start date: 08/30/11 13:33:00, Stop date: 08/30/11 13:33:00 Phenergan 2011-0 No Ketan 12.5 mg, Memoria 3-22 [place] 0.5 mL, l 17:52: Route: Steele IVPB, Q6H, PRN Nausea & Vomiting, Start date: 08/30/11 12:52:00, Duration: 30 day, Stop date: 09/29/11 12:51:00 Zofran No Ketan 4 mg, 1 Teoflio osiris - [place] tab, l 17:51: Route: PO, Vince 00 Drug form: TAB, Q8H, PRN Nausea & Vomiting, Start date: 08/30/11 12:51:00, Duration: 30 day, Stop date: 09/29/11 12:50:00 naloxone No Ketan 0.2 mg, Me moria 08-29 [place] 0.5 mL, l 17:50: Route: Steele IVP, Drug form: INJ, Q5Min, PRN Narcotic Reversal, Start date: 08/30/11 12:50:00, Duration: 30 day, Stop date: 09/29/11 12:49:00 morphine No Ketan IV, Start Memoria Sulfate 30 08-29 [place] date: l mg 17:49: 08/30/11 Steele 00 12:49:00, Duration: 30, 30 ml heparin No Ketan 5,000 Memor ia - [place] unit, l 14:34: Route: Steele 00 SUB-Q, ONCE, Start date: 08/30/11 9:34:00, Stop date: 08/30/11 9:34:00 Invanz No Ketna 1 gm, Memori a 08-29 Cldye Route: l 11:30: IVPB, PRE Steele 00 OP, Start date: 08/30/11 6:30:00, Stop date: 08/30/11 17:00:00 chlorhexidi No Ketan 15 mL, Memoria ne topical 08-29 [place] Route: l 0.12% 11:30: S&SPIT, Vince liquid 00 PRE OP, Drug form: LIQ, Start date: 08/30/11 6:30:00, Stop date: 08/30/11 17:00:00 Vital Signs Vital Name Observation Time Observation Value Comments Source BMI Calculated 2017-08-20 20:22:00 Maryam Shahid Weight 2017-08-20 20:22:00 [facility] Height 2017-08-20 20:22:00 172.72 cm [facility] Vince Heart Rate 2017-08-20 20:22:00 [facility] [place] Temperature Oral (F) 2017-08-20 20:22:00 97.7 F [facility] Vince Systolic (mm Hg) 2017-08-20 20:22:00 Teofilo rial Vince Diastolic (mm Hg) 2017-08-20 20:22:00 Mem orial Steele Height 2017-07-09 20:53:00 172.72 cm [facility] Vince BMI Calculated 2017-07-09 20:53:00 Memori al Vince Weight 2017-07-09 20:53:00 [facility] [place] Heart Rate 2017-07-09 20:53:00 [facility] [place] Systolic (mm Hg) 2017-07-09 20:53:00 Teofilo rial Vince Diastolic (mm Hg) 2017-07-09 20:53:00 Mem orial Steele BMI Calculated 2017-06-06 13:00:00 Memori al [place] Weight 2017-06-06 13:00:00 [facility] Vince Height 2017-06-06 13:00:00 172.72 cm [facility] [place] Heart Rate 2017-06-06 13:00:00 [facility] Vince Temperature Oral (F) 2017-06-06 13:00:00 98.1 F [facility] Vince Systolic (mm Hg) 2017-06-06 13:00:00 Teofilo rial Steele Diastolic (mm Hg) 2017-06-06 13:00:00 Mem orial Vince BMI Calculated 2017-05-29 19:33:00 Memori al Vince Weight 2017-05-29 19:33:00 [facility] [place] Heart Rate 2017-05-29 19:33:00 [facility] Vince Systolic (mm Hg) 2017-05-29 19:33:00 Teofilo rial Vince Diastolic (mm Hg) 2017-05-29 19:33:00 Mem orial Steele Height 2017-05-29 19:33:00 172.72 cm [facility] Vince Height 2017-05-20 20:39:00 172.72 cm [facility] [place] Systolic (mm Hg) 2017-05-20 20:39:00 Teofilo rial Steele Diastolic (mm Hg) 2017-05-20 20:39:00 Mem orial Vince Heart Rate 2017-05-20 20:39:00 [facility] Vince BMI Calculated 2017-04-29 16:18:00 Memori al Vince Height 2017-04-29 16:18:00 172.72 cm [facility] [place] Weight 2017-04-29 16:18:00 [facility] Vince Systolic (mm Hg) 2017-04-29 16:18:00 Teofilo rial Vince Diastolic (mm Hg) 2017-04-29 16:18:00 Mem orial Steele Temperature Oral (F) 2017-04-29 16:18:00 98.2 F [facility] Vince BMI Calculated 2017-04-26 20:56:00 Memori al Vince Weight 2017-04-26 20:56:00 [facility] Vince Height 2017-04-26 20:56:00 173.99 cm [facility] [place] Temperature Oral (F) 2017-04-26 20:56:00 98.5 F [facility] [place] Heart Rate 2017-04-26 20:56:00 [facility] Vince Systolic (mm Hg) 2017-04-26 20:56:00 Teofilo rial Vince Diastolic (mm Hg) 2017-04-26 20:56:00 Mem orial Vince Respitory Rate 2016-08-14 19:00:00 Memori al Vince Systolic (mm Hg) 2016-08-14 19:00:00 Teofilo rial Steele Diastolic (mm Hg) 2016-08-14 19:00:00 Mem orial Steele Systolic (mm Hg) 2016-08-14 18:45:00 Teofilo rial Vince Diastolic (mm Hg) 2016-08-14 18:45:00 Mem orial Steele Respitory Rate 2016-08-14 18:45:00 Memori al Steele Systolic (mm Hg) 2016-08-14 18:30:00 Teofilo rial Steele Diastolic (mm Hg) 2016-08-14 18:30:00 Mem orial Steele Respitory Rate 2016-08-14 18:30:00 Memori al Vince Heart Rate 2016-08-14 13:57:00 [facility] [place] Height 2016-08-14 13:54:00 172.72 cm [facility] [place] BMI Calculated 2016-08-14 13:54:00 Memori al [place] Weight 2016-08-14 13:54:00 [facility] Vince BMI Calculated 2016-08-10 21:13:00 Memori al Steele Weight 2016-08-10 21:13:00 [facility] Vince Height 2016-08-10 21:13:00 172.72 cm [facility] [place] Temperature Oral (F) 2016-02-15 13:08:00 98.1 F [facility] Vince Systolic (mm Hg) 2016-02-15 13:08:00 Teofilo rial Steele Diastolic (mm Hg) 2016-02-15 13:08:00 Mem orial Vince Heart Rate 2016-02-15 13:08:00 [facility] Vince Respitory Rate 2016-02-15 13:08:00 Memori al Steele Systolic (mm Hg) 2016-02-15 09:06:00 Teofilo rial Steele Diastolic (mm Hg) 2016-02-15 09:06:00 Mem orial Steele Respitory Rate 2016-02-15 09:06:00 Memori al Vince Heart Rate 2016-02-15 09:06:00 [facility] [place] Temperature Oral (F) 2016-02-15 09:06:00 98.1 F [facility] [place] Temperature Oral (F) 2016-02-15 04:43:00 98.2 F [facility] [place] Systolic (mm Hg) 2016-02-15 04:43:00 Teofilo rial Vince Diastolic (mm Hg) 2016-02-15 04:43:00 Mem orial Steele Respitory Rate 2016-02-15 04:43:00 Memori al Vince Heart Rate 2016-02-15 04:43:00 [facility] [place] Height 2016 11:41:00 172.72 cm [facility] [place] Weight 2016 11:41:00 [facility] Vince BMI Calculated 2016 11:41:00 Memori al Vince Height 2016-02-09 15:30:00 172.72 cm [facility] Vince BMI Calculated 2016-02-09 15:30:00 Memori al Vince Weight 2016-02-09 15:30:00 [facility] Vince Height 2012-12-02 15:57:00 172.72 cm [facility] Vince Weight 2012-12-02 15:57:00 [facility] Vince Temperature Oral (F) 2011-09-01 00:10:00 98.9 F [facility] [place] Systolic (mm Hg) 2011-09-01 00:10:00 Teofilo rial [place] Heart Rate 2011-09-01 00:10:00 [facility] Vince Respitory Rate 2011-09-01 00:10:00 Memori al [place] Diastolic (mm Hg) 2011-09-01 00:10:00 Mem orial Steele Diastolic (mm Hg) 2011-08-31 20:00:00 Mem orial Steele Systolic (mm Hg) 2011-08-31 20:00:00 Teofilo rial Steele Respitory Rate 2011-08-31 20:00:00 Memori al Steele Temperature Oral (F) 2011-08-31 20:00:00 98.7 F [facility] [place] Heart Rate 2011-08-31 20:00:00 [facility] Vince Diastolic (mm Hg) 2011-08-31 16:40:00 Mem orial Vince Systolic (mm Hg) 2011-08-31 16:40:00 Teofilo rial Steele Respitory Rate 2011-08-31 16:40:00 Memori al [place] Heart Rate 2011-08-31 16:40:00 [facility] [place] Temperature Oral (F) 2011-08-31 16:40:00 98.8 F [facility] Steele Weight 2011-08-24 21:17:00 [facility] Vince Height 2011-08-24 21:17:00 175.26 cm [facility] [place] Weight 2011-06-12 16:09:00 [facility] Steele Height 2011-06-12 16:09:00 [facility] Procedures Procedure Date / Time Performing Clinician Source Performed Injection(s), anesthetic 2017-07-18 21:26:[address] [facility] orial Steele agent and/or steroid, transforaminal epidural, with imaging guidance (fluoroscopy or CT); lumbar or sacral, single level Epidural steroid 2017-07-09 06:00:00 [facility] rmann injection<sup>1</sup> Epidural steroid 2017-05-21 06:00:00 [facility] rmann injection<sup>2</sup> Microdiscectomy 2016-08-14 06:00:00 [facility] Cervical discectomy 2016 05:00:00 [facility] Miscellaneous 2011-08-30 05:00:00 [facility] operations<sup>3</sup> Miscellaneous operations 2011-08-30 05:00:[address] [facility] orial Vince <sup>1</sup> Arthroscopy of knee [facility] Hysterectomy [facility] Jah-en-y [facility] [place] [facility]<sup>6</sup> Arthroscopy of knee [facility] Steele Jah-en-y gastric bypass [facility] <sup>4</sup> Encounters Start End Encounter Admission Attending Care Care Encounter Source Date/Time Date/Time Type Type Clinicians Facility Department ID 2020-08-23 2020-08-26 Inpatient ASHLEY BEYER [facility] [id number] [place] 00:00:00 00:00:[address] 2020-08-19 2020-08-19 Outpatient ASHLEY BEYER [facility] [id number] [place] 00:00:00 00:00:[address] 2020-08-16 2020-08-16 Outpatient ASHLEY BEYER [facility] [id number] [place] 00:00:00 00:00:[address] 2020-08-11 2020-08-11 Outpatient ASHLEY BEYER [facility] [id number] [place] 00:00:00 00:00:[address] 2020-08-01 2020-08-10 Outpatient ASHLEY BEYER [facility] [id number] [place] 00:00:00 00:00:[address] 2020-08-01 2020-08-01 Outpatient ASHLEY BEYER [facility] [id number] [place] 00:00:00 00:00:[address] 2020-08-01 2020-08-01 Outpatient ASHLEY BEYER [facility] [id number] [place] 00:00:00 00:00:[address] 2020-08-01 2020-08-01 Outpatient DALE [facility] [id number] [place] 00:00:00 00:00:00 KAREN [address] 2020-08-01 2020-08-01 Outpatient ASHLEY BEYER [facility] [id number] [place] 00:00:00 00:00:[address] 2020-07-18 2020-07-18 Outpatient LEV [facility] [id number] [place] 00:00:00 00:00:00 REX [address] 2020-07-18 2020-07-18 Outpatient LEV [facility] [id number] [place] 00:00:00 00:00:00 REX [address] 2020-07-18 2020-07-18 Outpatient LEV, [facility] [id number] [place] 00:00:00 00:00:00 REX [address] 2020-06-23 2020-06-23 Outpatient HUNTER, [facility] [id number] [place] 00:00:00 00:00:00 KAREN 032 [facility] 2020-05-26 2020-05-26 Outpatient HUNTER, [facility] [id number] [place] 00:00:00 00:00:00 KAREN 290 [facility] di 2020-05-02 2020-05-02 Outpatient HUNTER, [facility] [id number] [place] 00:00:00 00:00:00 KAREN 609 Metho di 2020-04-26 2020-04-26 Emergency [facility] [id number] 15:53:00 18:18:00 Annalisa Maxwell [id number] [place] 4.2.7.2.686 [place] [id number] 2020-04-26 2020-04-26 Orders Doctor [facility] [id number] 00:00:00 00:00:00 Only Unassigned, JOSH [facility]13.10 [facility] [id number] [id number] 2020-04-14 2020-04-14 Outpatient DALE, [facility] [id number] [place] 00:00:00 00:00:00 KAREN 927 Metho di 2020-03-14 2020-03-14 Outpatient LEV, [facility] [id number] [place] 00:00:00 00:00:00 REX 023 Method i 2020-03-14 2020-03-14 Outpatient LEV, [facility] [id number] [place] 00:00:00 00:00:00 REX 389 Method i 2020-03-02 2020-03-02 Outpatient JOSE [facility] [id number] 419 [place] 00:00:00 00:00:00 MARÍA 132 Method i 2020-03-02 2020-03-02 Outpatient JOSE, [facility] [id number] [place] 00:00:00 00:00:00 MARÍA 095 Method i 2020-02-22 2020-02-22 Outpatient HUNTER, [facility] [id number] [place] 00:00:00 00:00:00 KAREN 362 Metho di 2020-02-15 2020-02-17 Inpatient MELIDA, [facility] [id number] [place] 00:00:00 00:00:00 YANET 467 Method i 2020-01-14 2020-01-14 Outpatient HUNTER, [facility] [id number] [place] 00:00:00 00:00:00 KAREN 553 Metho di 2020-01-11 2020-01-11 Outpatient LEV, [facility] [id number] [place] 00:00:00 00:00:00 REX 784 Method i 2020-01-11 2020-01-11 Outpatient LEV, [facility] [id number] [place] 00:00:00 00:00:00 REX 815 Method i 2019-12-28 2019-12-28 Outpatient HUNTER, [facility] [id number] 753 [place] 00:00:00 00:00:00 KAREN 560 Metho di 2019-12-16 2019-12-20 Inpatient LEV, [facility] 021 [id number] 07 [place] 00:00:00 00:00:00 REX 904 Method i 2019-12-14 2019-12-14 Outpatient LEV, [facility] [id number] 166 [place] 00:00:00 00:00:00 REX 844 Method i 2019-12-07 2019-12-07 Outpatient LEV, [facility] [id number] [place] 00:00:00 00:00:00 REX 733 Method i 2019-12-07 2019-12-07 Outpatient LEV, [facility] [id number] 808 [place] 00:00:00 00:00:00 REX 112 Method i 2019-11-09 2019-11-09 Outpatient LEV, [facility] [id number] 500 [place] 00:00:00 00:00:00 REX 178 Method i 2019-11-09 2019-11-09 Outpatient LEV, [facility] [id number] [place] 00:00:00 00:00:00 REX 484 Method i 2019-08-03 2019-08-03 Outpatient LEV [facility] [id number] [place] 00:00:00 00:00:00 REX 167 Method i 2017-09-25 2017-09-26 Outpatient [facility] [id number] 11:46:00 23:59:59 32 2017-08-20 2017-08-20 Outpatient Pasha Goldstein [facility] [id number] 09:30:00 23:59:59 Hwan 29 2017-08-19 2017-08-19 Outpatient Gerson Le [facility] M[facility] [id number] 13:40:00 23:59:00 C 12 2017-08-14 2017-08-15 Outpatient [facility] [id number] 12:53:00 23:59:59 31 2017-08-07 2017-08-08 Outpatient [facility] [id number] 08:24:00 23:59:59 30 2017-08-08 2017-08-08 Outpatient Gerson Le [facility] [id number] 11:00:00 11:00:00 C 11 2017-07-26 2017-07-27 Outpatient [facility] [id number] 16:39:00 23:59:59 29 2017-07-22 2017-07-23 Outpatient [facility] [id number] 17:01:00 23:59:59 28 2017-07-18 2017-07-18 Outpatient AngelitaPasha [facility] [id number] 13:40:00 23:59:59 Hwan 28 2017-07-11 2017-07-12 Outpatient [facility] [id number] 10:27:00 23:59:59 27 2017-07-11 2017-07-11 Outpatient Stella, [facility] [id number] 09:40:00 09:40:00 Viviana Lopez 2017-07-11 2017-07-11 Outpatient Stella, [facility] [id number] 09:40:00 09:40:00 Viviana Lopez 2017-07-10 2017-07-10 Outpatient Stanley [facility] [id number] 10:00:00 10:00:00 Kala Torres 18 2017-07-09 2017-07-09 Outpatient Pasha Goldstein [facility] [id number] 11:40:00 23:59:59 Hwduy 26 2017-07-08 2017-07-09 Outpatient [facility] [id number] 11:26:00 23:59:59 26 2017-07-09 2017-07-09 Outpatient Stella, [facility] [id number] 13:40:00 13:40:00 Viviana 24 Jessica 2017-07-08 2017-07-08 Outpatient Stella, [facility] [id number] 13:00:00 13:00:00 Viviana 23 Jessica 2017-07-08 2017-07-08 Outpatient Stella, [facility] [id number] 11:40:00 11:40:00 Viviana 25 Jessica 2017-07-03 2017-07-04 Outpatient [facility] [id number] 11:29:00 23:59:59 25 2017-07-04 2017-07-04 Outpatient Stella, [facility] [id number] 14:20:00 14:20:00 Viviana 21 Jessica 2017-06-18 2017-06-18 Outpatient Pasha Goldstein [facility] [id number] 14:20:00 23:59:59 Aziza 20 2017-06-18 2017-06-18 Outpatient Pasha Goldstein [facility] [id number] 14:20:00 23:59:59 Aziza 20 2017-06-12 2017-06-13 Outpatient [facility] [id number] 11:41:00 23:59:59 24 2017-06-13 2017-06-13 Outpatient Stella, [facility] [id number] 14:20:00 14:20:00 Viviana 19 Jessica 2017-06-12 2017-06-12 Outpatient Stella, [facility] [id number] 10:20:00 10:20:00 Viviana Lopez 2017-06-11 2017-06-11 Outpatient Stella [facility] [id number] 14:00:00 14:00:00 Viviana Lopez 2017-06-06 2017-06-06 Outpatient Pasha Goldstein [facility] [id number] 13:30:00 23:59:59 duy 17 2017-05-29 2017-05-29 Outpatient Pasha Goldstein [facility] [id number] 13:20:00 23:59:59 duy 14 2017-05-28 2017-05-29 Outpatient [facility] [id number] 11:01:00 23:59:59 23 2017-05-23 2017-05-24 Outpatient [facility] [id number] 14:54:00 23:59:59 22 2017-05-21 2017-05-21 Outpatient Pasha Goldstein [facility] [id number] 11:20:00 23:59:59 duy 13 2017-05-20 2017-05-20 Outpatient Pasha Goldstein [facility] [id number] 14:00:00 23:59:59 [facility] 12 2017-05-14 2017-05-14 Outpatient Gerson Le 2.16.840. 2.16.840. 1. [id number] 15:03:00 23:59:00 C [id number] 3.615.30 5.30 2017-05-14 2017-05-14 Outpatient Gerson Le 2.16.840. 2.16.840. 1. [id number] 12:22:00 23:59:00 C [id number] 3.615.30 5.30 2017-04-29 2017-04-29 Outpatient Gerson Le [facility] [id number] 09:00:00 23:59:59 C 10 2017-04-26 2017-04-26 Outpatient Pasha Goldstein [facility] [id number] 10:15:00 23:59:59 [facility] 2017-04-06 2017-04-06 Outpatient Pasha Goldstein [facility] [id number] 11:12:00 23:59:00 [facility] 2016-08-14 2016-08-14 Outpatient Pasha Goldstein [facility] [id number] 07:00:00 23:59:00 [facility] 2016-07-28 2016-07-28 Outpatient Андрей 2.16.840. 2.16.840.1. [id number] 15:58:00 23:59:00 Kan Arora [id number] 3.615.30 5.30 2016 2016-02-15 Outpatient Pasha Goldstein [facility] [id number] 06:02:00 11:15:00 [facility] 2015-05-10 2015-05-10 [facility]ctor[facility] [id number] 14:29:00 23:59:00 Rajat Jer Darci 2014-11-08 2014-11-08 Outpatient Héctor, [facility] [id number] 07:35:00 23:59:00 Rajat Claros Darci 2014-10-27 2014-10-27 Outpatient Héctor, [facility] [id number] 14:17:00 23:59:00 Rajat Duque Darci 2013-12-23 2013-12-23 Outpatient Héctor, [facility] [id number] 14:21:00 23:59:00 Rajat Stacia Darci 2013-12-08 2013-12-08 [facility] [id number] 14:11:00 23:59:00 Rajat Luke Darci 2013-07-09 2013-07-09 Outpatient [facility] [id number] [facility] 11:35:00 23:59:00 Outpatien Outpatient O utpati t Imaging Imaging ent [facility] Results Test Description Test Time Test Comments Results Result [facility] e Comments - CT LOWER [facility] 2020-05-27 W/O C LT 16:09:00 [facility] 1960 Sex: F Patient Name: AYAH ALVARADO Unit No: [id number] EXAMS: CPT CODE: [id number] [place] EXTR[place] W/[place] [address] [place] OF THE LEFT PROXIMAL FEMUR AND HIP WITH SAGITTAL AND CORONAL RECONSTRUCTIONS DIAGNOSIS: There is a comminuted fracture extending from the femoral neck, intertrochanteric, subtrochanteric and into the proximal diaphysis. Avulsion of the lesser trochanter as noted. Internal fixation is present. There is new bone formation with minimal immature bridging on the proximal end of the fracture posteriorly. This comprises less than 5% of the surface area. There is periosteal new bone formation distally without bony bridging. No healing is seen through the long oblique portion of the fracture. COMMENT: COMPARISON: No prior exams available. Scans were performed with thin sections and reconstructions were obtained. CT radiation dose optimization is achieved for this examination by the use of a CT protocol in accordance with ACR practice standards and adherence to offbearer's recommendations. Minimal healing of the proximal femoral fracture is seen. Periosteal new bone formation is present. at 1609 Reported and signed by: Charles Perez MD CC: Antwan Nguyen MD Technologist: Raheel Mchugh,RT(R) CTDI: DLP: Trnscrpt: 05/27/2020 (1609) [facility] NAME: AYAH ALVARADO [address] PHYS: BRIMA.[id number] - Antwan Nguyen MD : 1960 AGE: 60 SEX: F [place], [place] [address] LOC: YHANNAH PHONE #: [phone] EXAM DATE: 05/27/2020 STATUS: REG CLI FAX #: [phone] RAD #: [id number] D/C DT PAGE 1 Signed Report Patient Name: AYAH ALVARADO Unit No: [id number] EXAMS: CPT CODE: [id number] CT LOWER EXTRM W/[place] [address] <Continued> Orig Print D/T: S: 05/27/2020 (1613) [facility] NAME: AYAH ALVARADO [address] [facility] PHYS: Antwan Landon MD : 1960 AGE: 60 SEX: F [place], [place] [address] LOC: Y.RAD PHONE #: [phone] EXAM DATE: 05/27/2020 STATUS: REG CLI FAX #: [phone] RAD #: [id number] D/C DT PAGE 2 Signed Report BASIC METABOLIC PANEL 2020-04-15 06:37:00 Test Item Value Reference Range Interpretation Comme nts SODIUM (test code = NA) 141 mmol/L 136-145 N POTASSIUM (test code = K) 4.6 mmol/L 3.5-5.1 N CHLORIDE (test code = CL) 104.0 mmol/L 98-107 N CARBON DIOXIDE (test code = 31.0 mmol/L 21-32 N CO2) GLUCOSE (test code = GLU) 67 mg/dL 70-110 L BLOOD UREA NITROGEN (test code 16 mg/dL 7-18 N = BUN) GLOMERULAR FILTRATION RATE 77.6 >60 U nit of measure: (test code = GFR) mL/min/1.7 3 [id number] Range:Healthy A dults >90 mL/min/1.73 m2 For Chronic Kidney Disease: Stage II Mi ld Decrease in GFR 60-9 0 Stage III Moderate Decrease in GFR 30-59 Stage IV Severe Decrease in GFR 15-29 Stage V Kidney Failure <15 CREATININE (test code = CREAT) 0.76 mg/dL 0.55-1.30 N CALCIUM (test code = CA) 8.7 mg/dL 8.2-10.1 N CBC W/AUTO [id number] 06:01:00 Test Item Value Reference Range Interpretation Comments WHITE BLOOD CELL (test code = WBC) 8.4 K/mm3 5.8-11.0 N RED BLOOD CELL (test code = RBC) 3.64 M/mm3 4.2-5.4 L HEMOGLOBIN (test code = HGB) 10.7 g/dL 12-16 L HEMATOCRIT (test code = HCT) 33.3 % 37-47 L MEAN CELL VOLUME (test code = MCV) 92 fL 80-98 N MEAN CELL HGB (test code = MCH) 29.4 pg 27-34 N MEAN CELL HGB CONCENTRATION (test 32.1 g/dL 30.8-34.1 N code = MCHC) RED CELL DISTRIBUTION WIDTH (test 16.5 % 11-16 H code = RDW) PLT (test code = PLT) 251 K/mm3 130-400 N MEAN PLATELET VOLUME (test code = 10.7 fL 8.9-12.1 N MPV) NEUTROPHIL % (test code = NT%) 65.4 % 45-70 N LYMPHOCYTE % (test code = LY%) 19.7 % 20-40 L MONOCYTE % (test code = MO%) 12.4 % 3-10 H EOSINOPHIL % (test code = EO%) 1.4 % 1-5 N BASOPHIL % (test code = BA%) 0.6 % 0.0-1.1 N NEUTROPHIL # (test code = NT#) 5.46 K/mm3 2.00-7.50 N LYMPHOCYTE # (test code = LY#) 1.65 K/mm3 1.50-4.00 N MONOCYTE # (test code = MO#) 1.04 K/mm3 0.2-0.8 H EOSINOPHIL # (test code = EO#) 0.12 K/mm3 0.04-0.4 N BASOPHIL # (test code = BA#) 0.05 K/mm3 0.02-0.10 N MANUAL DIFF REQUIRED (test code = NO MANUAL DIFF MDIFF) NUCLEATED RED BLOOD CELL (test 0 % 0-0 N code = NRBC) ACUTE HEPATITIS [id number] 21:48:00 Test Item Value Reference Range Interpretation Comments AB HEPATITIS A IGM (test code = NONREACTIVE NONREACTIVE HAVMAB) AG HEPATITIS B SURFACE (test code NONREACTIVE NONREACTIVE = HBSAG) AB HEPATITIS B CORE IGM (test NONREACTIVE NONREACTIVE code = HBCMAB) AB HEPATITIS C (test code = NONREACTIVE NONREACTIVE HCVAB) SIGNAL TO CUTOFF (test code = 0.09 <0.80 N CUTOFF) AB HIV 1 21:48:00 Test Item Value Reference Range Interpretation Comments AB HIV 1 2 (test NONREACTIVE NONREACTIVE Done by S [employer] code = [id number]) 4th Gen HIV Ag/Ab Combo Screen ACUTE HEPATITIS [id number] 21:48:00 Test Item Value Reference Range Interpretation Comments AB HEPATITIS A IGM (test code = NONREACTIVE NONREACTIVE HAVMAB) AG HEPATITIS B SURFACE (test code NONREACTIVE NONREACTIVE = HBSAG) AB HEPATITIS B CORE IGM (test NONREACTIVE NONREACTIVE code = HBCMAB) AB HEPATITIS C (test code = NONREACTIVE NONREACTIVE HCVAB) SIGNAL TO CUTOFF (test code = 0.09 <0.80 CUTOFF) AB HIV 21:48:00 Test Item Value Reference Range Interpretation Comments AB HIV 1 (test code NONREACTIVE NONREACTIVE DONE AT: [facility] = HIV1AB) [id number] [place], [place] [address] by [employer] 4th Gen HIV Ag/Ab C ombo Screen ACUTE HEPATITIS [id number] 21:46:00 Test Item Value Reference Range Interpretation Comments AB HEPATITIS A IGM (test code = NONREACTIVE HAVMAB) AG HEPATITIS B SURFACE (test code NONREACTIVE NONREACTIVE = HBSAG) AB HEPATITIS B CORE IGM (test NONREACTIVE NONREACTIVE code = HBCMAB) AB HEPATITIS C (test code = NONREACTIVE NONREACTIVE HCVAB) SIGNAL TO CUTOFF (test code = 0.09 <0.80 N CUTOFF) AB HIV 1 21:46:00 Test Item Value Reference Range Interpretation Comments AB HIV 1 2 (test code = [id number]) NONREACTIVE ACUTE HEPATITIS [id number] 21:46:00 Test Item Value Reference Range Interpretation Comments AB HEPATITIS A IGM (test code = NONREACTIVE HAVMAB) AG HEPATITIS B SURFACE (test code NONREACTIVE NONREACTIVE = HBSAG) AB HEPATITIS B CORE IGM (test NONREACTIVE NONREACTIVE code = HBCMAB) AB HEPATITIS C (test code = NONREACTIVE NONREACTIVE HCVAB) SIGNAL TO CUTOFF (test code = 0.09 <0.80 CUTOFF) AB HIV 21:46:00 Test Item Value Reference Range Interpretation Comments AB HIV 1 (test code = HIV1AB) NONREACTIVE ACUTE HEPATITIS [id number] 21:45:00 Test Item Value Reference Range Interpretation Comments AB HEPATITIS A IGM (test code = NONREACTIVE HAVMAB) AG HEPATITIS B SURFACE (test code NONREACTIVE NONREACTIVE = HBSAG) AB HEPATITIS B CORE IGM (test code = HBCMAB) AB HEPATITIS C (test code = NONREACTIVE NONREACTIVE HCVAB) SIGNAL TO CUTOFF (test code = 0.09 <0.80 CUTOFF) AB HIV 21:45:00 Test Item Value Reference Range Interpretation Comments AB HIV 1 (test code = HIV1AB) NONREACTIVE ACUTE HEPATITIS [id number] 21:44:00 Test Item Value Reference Range Interpretation Comments AB HEPATITIS A IGM (test code = NONREACTIVE HAVMAB) AG HEPATITIS B SURFACE (test code NONREACTIVE NONREACTIVE = HBSAG) AB HEPATITIS B CORE IGM (test NONREACTIVE code = HBCMAB) AB HEPATITIS C (test code = NONREACTIVE NONREACTIVE HCVAB) SIGNAL TO CUTOFF (test code = 0.09 <0.80 N CUTOFF) AB HIV 1 21:44:00 Test Item Value Reference Range Interpretation Comments AB HIV 1 2 (test code = [id number]) NONREACTIVE ACUTE HEPATITIS [id number] 21:25:00 Test Item Value Reference Range Interpretation Comments AB HEPATITIS A IGM (test code = NONREACTIVE HAVMAB) AG HEPATITIS B SURFACE (test code NONREACTIVE NONREACTIVE = HBSAG) AB HEPATITIS B CORE IGM (test code = HBCMAB) AB HEPATITIS C (test code = NONREACTIVE HCVAB) SIGNAL TO CUTOFF (test code = CUTOFF) AB HIV 21:25:00 Test Item Value Reference Range Interpretation Comments AB HIV 1 (test code = HIV1AB) NONREACTIVE ACUTE HEPATITIS [id number] 21:24:00 Test Item Value Reference Range Interpretation Comments AB HEPATITIS A IGM (test code = NONREACTIVE HAVMAB) AG HEPATITIS B SURFACE (test code NONREACTIVE NONREACTIVE = HBSAG) AB HEPATITIS B CORE IGM (test NONREACTIVE code = HBCMAB) AB HEPATITIS C (test code = NONREACTIVE HCVAB) SIGNAL TO CUTOFF (test code = <0.80 CUTOFF) AB HIV 1 21:24:00 Test Item Value Reference Range Interpretation Comments AB HIV 1 2 (test code = [id number]) NONREACTIVE COVID 19 Asymptomatic IH [id number] 18:48:00 Test Item Value Reference Range Interpretation Comments COVID 19 Asymptomatic IH AG (test NEGATIVE NEGATIVE code = [id number]) CBC W/AUTO [id number] 18:32:00 Test Item Value Reference Range Interpretation Comments WHITE BLOOD CELL (test code = WBC) 9.6 K/mm3 5.8-11.0 N RED BLOOD CELL (test code = RBC) 4.29 M/mm3 4.2-5.4 N HEMOGLOBIN (test code = HGB) 12.6 g/dL 12-16 N HEMATOCRIT (test code = HCT) 39.0 % 37-47 N MEAN CELL VOLUME (test code = MCV) 91 fL 80-98 N MEAN CELL HGB (test code = MCH) 29.4 pg 27-34 N MEAN CELL HGB CONCENTRATION (test 32.3 g/dL 30.8-34.1 N code = MCHC) RED CELL DISTRIBUTION WIDTH (test 16.5 % 11-16 H code = RDW) PLT (test code = PLT) 284 K/mm3 130-400 N MEAN PLATELET VOLUME (test code = 9.7 fL 8.9-12.1 N MPV) NEUTROPHIL % (test code = NT%) 82.7 % 45-70 H LYMPHOCYTE % (test code = LY%) 8.7 % 20-40 L MONOCYTE % (test code = MO%) 7.1 % 3-10 N EOSINOPHIL % (test code = EO%) 0.2 % 1-5 L BASOPHIL % (test code = BA%) 0.8 % 0.0-1.1 N NEUTROPHIL # (test code = NT#) 7.97 K/mm3 2.00-7.50 H LYMPHOCYTE # (test code = LY#) 0.84 K/mm3 1.50-4.00 L MONOCYTE # (test code = MO#) 0.68 K/mm3 0.2-0.8 N EOSINOPHIL # (test code = EO#) 0.02 K/mm3 0.04-0.4 L BASOPHIL # (test code = BA#) 0.08 K/mm3 0.02-0.10 N MANUAL DIFF REQUIRED (test code = NO MANUAL DIFF MDIFF) NUCLEATED RED BLOOD CELL (test 0 % 0-0 N code = NRBC) SED [id number] 18:32:00 Test Item Value Reference Range Interpretation Comments SED RATE (test code = SEDW) 20 mm/hr 0-20 N COMPREHENSIVE METABOLIC [id number] 18:05:00 Test Item Value Reference Range Interpretation Comments SODIUM (test code = 138 mmol/L 136-145 N NA) POTASSIUM (test code = 4.3 mmol/L 3.5-5.1 N K) CHLORIDE (test code = 100.0 mmol/L 98-107 N CL) CARBON DIOXIDE (test 30.8 mmol/L 21-32 N code = CO2) GLUCOSE (test code = 94 mg/dL 70-110 N GLU) BLOOD UREA NITROGEN 16 mg/dL 7-18 N (test code = BUN) GLOMERULAR FILTRATION 82.6 >60 Unit o f measure: RATE (test code = GFR) mL/mi n/1.73 [id number] Range:Healthy Adults >90 mL/min/1.73 m2 For Chronic Kidney Disease: St age II Mild Decrease in GFR 60-90 St age III Moderate Decrease in GFR 30-59 Stage IV Severe Decre ase in GFR 15- 29 Stage V Kidney Failure <15 CREATININE (test code 0.72 mg/dL 0.55-1.30 N = CREAT) TOTAL PROTEIN (test 7.0 g/dL 6.4-8.2 N code = PROT) ALBUMIN (test code = 3.6 g/dL 3.4-5.0 N ALB) GLOBULIN (test code = 3.4 g/dL 2.2-4.2 N GLOB) ALBUMIN/GLOBULIN RATIO 1.1 0.7-2.0 N (test code = A/G) CALCIUM (test code = 9.1 mg/dL 8.2-10.1 N CA) BILIRUBIN TOTAL (test 0.60 mg/dL 0.2-1.00 N code = BILT) SGOT/AST (test code = 30.0 U/L 15-37 N AST) SGPT/ALT (test code = 24.0 U/L 12-78 N Please note new ALT) normal range. ALKALINE PHOSPHATASE 278 U/L 46-116 H TOTAL (test code = ALKP) PROTHROMBIN [id number] 17:20:00 Test Item Value Reference Range Interpretation Comments PROTHROMBIN TIME 10.9 secs 10.1-12.5 N PATIENT (test code = PTP) INTERNATIONAL NORMAL 0.97 <2.0 RECOMME NDED THERAPEUTIC RATIO (test code = RANGE FOR ORAL INR) ANTICOAGULANTTR EATMENT: CONDI TION INRProphylaxis of venous thrombos is in 2.0 - 3.0 high-risk medic al or surgical patientsTreatme nt of venous thrombos is 2.0 - 3.0Prevention o f embolism 2.0 - 3.0Prevention o f recurrent embol ism, or 3.0 - 4. 5 patients with mechanical pros thetic intravascular v bal IS PATIENT ON ANTICOAGULANTS ? NHas Lab been notified if Patient is on Heparin Drip? NOTHROMBOPLASTIN TIME [id number] 17:20:00 Test Item Value Reference Range Interpretation Comments PTT ACTIVATED (test code = APTT) 30.8 secs 24.9-37.0 N IS PATIENT ON ANTICOAGULANTS ? NHas Lab been notified if Patient is on Heparin Drip? NOCBC W/AUTO [id number] 17:06:00 Test Item Value Reference Range Interpretation Comments WHITE BLOOD CELL (test code = WBC) 9.6 K/mm3 5.8-11.0 N RED BLOOD CELL (test code = RBC) 4.29 M/mm3 4.2-5.4 N HEMOGLOBIN (test code = HGB) 12.6 g/dL 12-16 N HEMATOCRIT (test code = HCT) 39.0 % 37-47 N MEAN CELL VOLUME (test code = MCV) 91 fL 80-98 N MEAN CELL HGB (test code = MCH) 29.4 pg 27-34 N MEAN CELL HGB CONCENTRATION (test 32.3 g/dL 30.8-34.1 N code = MCHC) RED CELL DISTRIBUTION WIDTH (test 16.5 % 11-16 H code = RDW) PLT (test code = PLT) 284 K/mm3 130-400 N MEAN PLATELET VOLUME (test code = 9.7 fL 8.9-12.1 N MPV) NEUTROPHIL % (test code = NT%) 82.7 % 45-70 H LYMPHOCYTE % (test code = LY%) 8.7 % 20-40 L MONOCYTE % (test code = MO%) 7.1 % 3-10 N EOSINOPHIL % (test code = EO%) 0.2 % 1-5 L BASOPHIL % (test code = BA%) 0.8 % 0.0-1.1 N NEUTROPHIL # (test code = NT#) 7.97 K/mm3 2.00-7.50 H LYMPHOCYTE # (test code = LY#) 0.84 K/mm3 1.50-4.00 L MONOCYTE # (test code = MO#) 0.68 K/mm3 0.2-0.8 N EOSINOPHIL # (test code = EO#) 0.02 K/mm3 0.04-0.4 L BASOPHIL # (test code = BA#) 0.08 K/mm3 0.02-0.10 N MANUAL DIFF REQUIRED (test code = NO MANUAL DIFF MDIFF) NUCLEATED RED BLOOD CELL (test 0 % 0-0 N code = NRBC) SED [id number] 17:06:00 Test Item Value Reference Range Interpretation Comments SED RATE (test code = SEDW) mm/hr 0-20 IUDRIYRCHM1290-09-28 18:23:000.1[facility] GxydmhtQGSFSSVIBY1773-49-29 18:23:000.6 [facility] JjeviqeCHRTIEGLSJ0064-68-95 18:23:000.5[facility]annHEMATOLOGY 2016-08-10 18:23:007.2[facility] UgfqhpdAPUMIQEHYD4260-60-43 18:23:000.4[facility] PkmmbbdLFOOGEZCLB7758-16-34 18:23:000.2[facility] LrktyraYHNIXQTJXB9671-08-93 18:23:006.6[facility] ZomjzjeXLVRLFKFTK1217-03-18 18:23:0088.0[facility] Vince SVBHAGKBLU6436-01-48 18:23:004.6[facility] QprpwffDVGBWVCTYW8666-83-82 18:23:00 10.4[facility] ApawmswBEPXLFNJZM5795-05-05 18:23:008.2[facility]annHEMATOLOGY 2016-08-10 18:23:004.15[facility] KcrwphfYJZVBHRVSW6817-22-19 18:23:0031.4[facility] OsjzlriFGZKZOLDIL0402-47-23 18:23:0080.0[facility] ZvjcmrgIJHDZMCZKR4324-81-45 18:23:00 Test Item Value Reference Range Interpretation Comments MCH (test code = MCH) 25.1 pg 27.0-31.0 [facility] IpyelilKPMTKSRQNV2690-76-29 18:23:0033.2[facility]ann[facility]MATOLOGY 2016-08-10 18:23:0019.7[facility] LgbensvGJJUPWSWCB4301-47-47 18:23:007.9[facility] TdgflksIINPTJIFZE7619-42-45 18:23:84334Hutzgzsx HermannBLOOD BANK RESULTS 2016 11:50:00Negative (02/14/16 6:50 AM)[facility]annCHEM IDNFZ3313-39-25 11:50:0084[facility] HermannCHEM SCGEF6272-73-93 11:50:0076[facility] HermannCHEM YDDUO3262-81-34 11:50:0016.0[facility] HermannCHEM KKZRL9438-08-15 11:50:008.2 [facility]annCHEM DSEYT4783-37-99 11:50:0026[facility]annCHEM PANEL 2016 11:50:000.79[facility] HermannCHEM IEIVF4283-81-30 11:50:004.0[facility] HermannCHEM DRYLH5258-22-31 11:50:0016[facility] HermannCHEM QPLYR8490-12-51 11:50:49778Cuxlhdsj HermannCHEM HULVH5367-64-22 11:50:86916Hdtlvqzc Steele NCVSXQJIBR5758-62-88 11:50:002.9[facility] UbxffhiHMTHTCKGXH4084-28-63 11:50:003.4 [facility] DlxpcsvOTKOBQFLDV3945-63-86 11:50:001.1[facility]annHEMATOLOGY 2016 11:50:002.1[facility] ZnounsoEYLTCRATIW6292-10-51 11:50:001+ *ABN*(02/14/16 6:50 AM)[facility] ObegsshIEGHSNKKVB1092-13-95 11:50:000.1[facility] KdidbzoHVJJULVJYD0889-43-57 11:50:000.2[facility] UkcrtwfAMGTDMQHWW8381-24-16 11:50:000.7[facility] QwbamanPQZGBNGEUU9407-26-41 11:50:009.5[facility] XMHGMNRBKO5145-68-79 11:50:0039.6[facility] BrnmaxsOSIOHTRCSG9519-50-37 11:50:00 47.7[facility] NppjvdmFUHUMDPAMQ1364-23-62 11:50:007.2[facility]annHEMATOLOGY 2016 11:50:22965Fptblgjj IyqupxwKQKNPYEZZG5916-54-39 11:50:0022.6[facility] SsxnnonCSPXTLWFTV1445-63-37 11:50:0030.2[facility] SrmaaznCWMWREWXUF3754-79-53 11:50:0080.7[facility] XjlrocjRBAAZVPJUF7248-58-63 11:50:00 Test Item Value Reference Range Interpretation Comments MCH (test code = MCH) 25.3 pg 27.0-31.0 [facility] DyzfagcZNLWCXMNIV0454-74-67 11:50:0031.3[facility] HermannHEMATOLOGY 2016 11:50:007.2[facility] SoxnfcbWJGHPNFAMT9345-81-37 11:50:003.74[facility] UaxpshtBINLSKWVLP1051-69-56 11:50:009.5[facility] ForfeykHGLDNIWMX7163-30-63 08:37:0012.0[facility] KsdloolBJYNPJSAU8356-23-18 08:37:0013[facility] HXHHHYZKP7484-89-95 08:37:002.3[facility] BiyyacpHFXVDYYXH9694-87-95 08:37:001.3 [facility] VmbaxhtGRRSPDJPJ3264-71-05 08:37:0093[facility] HermannCHEMISTRY 2011-08-31 08:37:24209Iytlgqrg ScpdphhSXQICHVOX1754-04-66 08:37:000.5[facility] IeozydqEUKGIDLQD2434-46-70 08:37:23356Xctdnzih HnujeoxOGJAFYGHJ7261-57-13 08:37:69860Mkqjnnxz BkuljwyLTCAFQFNY5024-34-33 08:37:000.6[facility] LSREXEPOX8536-67-29 08:37:0078[facility] FyjchqhLNUPEJXYT9800-79-65 08:37:008 [facility] DndkqvqLABRNZLLT1744-14-46 08:37:005.4[facility] HermannCHEMISTRY 2011-08-31 08:37:003.1[facility] KtjeybsQXHDEXOVA8707-52-76 08:37:004.0[facility] FsneparOIPAUCKHW7271-54-92 08:37:008.1[facility] NrlaxgwHFELUUWBC5278-22-34 08:37:21710Luzkgpjx EnuauitOPHKEHFZY4924-39-79 08:37:0029[facility] UBVICFIHMT0232-10-55 08:37:000.1[facility] LlrcrtlWITTMFGKDQ3747-08-56 08:37:000.5 [facility] PbfpikrHFYLHCHWVG3118-51-91 08:37:000.8[facility]annHEMATOLOGY 2011-08-31 08:37:000.1[facility] ImskeibGGFCWLNRYZ4784-68-39 08:37:007.2[facility] MweoetpIPXMYGSTNE6956-34-93 08:37:0084.2[facility] GaruxloFFXWLIJEYW5395-09-84 08:37:008.8[facility] SwbzbdkIHGZXQIOWC2728-69-85 08:37:000.8[facility] HBWLCDOMNG9488-24-17 08:37:006.1[facility] GmraxhvOJWCWZWAFM8105-73-72 08:37:00 30.4[facility] VnfpewaZVIGBJULVY4420-87-08 08:37:0032.7[facility] HermannHEMATOLOGY 2011-08-31 08:37:0015.9[facility] RsuqjdtSOTJILYJCI2868-04-88 08:37:00 Test Item Value Reference Range Interpretation Comments MCH (test code = MCH) 28.3 pg 27.0-31.0 N [facility] DhgdyblDFRQRKLKTX0107-70-04 08:37:0086.5[facility]annHEMATOLOGY 2011-08-31 08:37:008.7[facility] VauiukzIVPRXJJUYG4863-34-65 08:37:70134Yumqzqmz CiodhcaSDJQANUUZF0776-86-65 08:37:008.6[facility] TytpjpmBRFWINKNQB4018-86-57 08:37:0010.0[facility] CfombniURPZTIJXHB3859-67-24 08:37:003.52[facility] BLOOD BANK JCIJIJX3592-54-30 22:00:00Negative (08/24/2011 17:00:00)[facility] YvsmavwQNIIOBMZQ0826-10-27 22:00:0029[facility] HmquaxuHQVGDDNUM0366-14-94 22:00:66217Ypepvljf XxndebuJVDWQHCHI8591-10-71 22:00:01888Jjxgjtfv Steele LYKNZROTK1589-01-82 22:00:004.3[facility] HxcezoeDXHOQNVVN1476-52-55 22:00:0079 [facility] CazhoxiNHZAMYSGQ6050-18-45 22:00:000.3[facility] HermannCHEMISTRY 2011-08-24 22:00:003.9[facility] TslzziaARRRKVKIU4189-03-29 22:00:0039[facility] YcyosenMIBKHRGKF4684-92-10 22:00:008.7[facility] TpulzsgFHXDVGAUP7460-95-84 22:00:007.5[facility] RbrbbuoERGXMGIDD2924-76-60 22:00:0014[facility] JBDAVHBDY6329-02-00 22:00:0085[facility] NbifkycWTLCZACKW4189-01-03 22:00:000.9 [facility] IqozzkpHHAXEIUMV4267-44-62 22:00:0027[facility] HermannCHEMISTRY 2011-08-24 22:00:003.6[facility] FpzcgeoFCOMINTHD8166-57-78 22:00:0012.3[facility] NadqjptASADPYTEA7492-34-86 22:00:0016[facility] LnzswylQHXLNNJYJ5706-10-31 22:00:001.1[facility] QjvllxjLCKJLDJSIN7436-97-33 22:00:000.0[facility] ELYLDZHMNE2484-78-71 22:00:000.5[facility] ZjhygdmDBBNYZGXKR1370-56-48 22:00:005.2 [facility] LrbuhpaUVVROGFSLL2812-38-29 22:00:000.7[facility] HermannHEMATOLOGY 2011-08-24 22:00:0030.8[facility] FzdeqgwBLMEIMYTYY7270-41-13 22:00:006.1[facility] GiyctxsNXXNKEWJIM0711-71-46 22:00:000.1[facility] WebtcxxZQLNEDQUAF6136-94-34 22:00:000.5[facility] QndkjefRNCXSIEATK6161-42-44 22:00:002.6[facility] HMIMEHFTUR7251-48-84 22:00:0061.9[facility] AkdfyabBJFHFDEHZG7715-10-42 22:00:00 Test Item Value Reference Range Interpretation Comments PTT (test code = PTT) 28.5 s 22.9-35.8 N [facility] BjegwcrLEBPGIBAIJ2511-46-61 22:00:00 Test Item Value Reference Range Interpretation Comments PT (test code = PT) 12.3 s 12.0-14.7 N [facility] PtiapifDRBWXVAHSG9308-22-97 22:00:000.91[facility]annHEMATOLOGY 2011-08-24 22:00:0015.9[facility] LujksiqCPZMKEVNWU4202-42-13 22:00:0033.1[facility] ZwlmiwgOKLOQJGAHE9747-34-34 22:00:00 Test Item Value Reference Range Interpretation Comments MCH (test code = MCH) 28.1 pg 27.0-31.0 N [facility] ZqbilofWSMEJBWCSB2464-10-21 22:00:29090Jnvwrrnl HermannHEMATOLOGY 2011-08-24 22:00:008.1[facility] CzaeminYXLWBIXHOJ7794-45-27 22:00:0012.3[facility] CbsjnpoZQMSWFMJZV2950-95-94 22:00:0037.1[facility] BorqhxyFHQKEOTVAE9795-55-26 22:00:008.4[facility] LbuldhuMMPKPEXEWA3331-68-53 22:00:004.37[facility] VKZLASOWSU5556-62-89 22:00:0084.8[facility] DnmwwqzUHEPGRMJYG8643-81-22 22:00:00 Negative *NA*(08/24/2011 17:00:00)[facility] WxvvbkbPIXFVOVUVV0418-97-87 21:20:00 Negative mg/dL *NA*(08/24/2011 16:20:00)[facility] YupwawcTPIFMJRJSB5441-49-72 21:20:00Negative mg/dL (08/24/2011 16:20:00)[facility]ovedjkAUIDLDJEQW1387-35-36 21:20:00Negative mg/dL *NA*(08/24/2011 16:20:00)[facility] 2011-08-24 21:20:00Negative (08/24/2011 16:20:00)[facility] 2011-08-24 21:20:00Negative *NA*(08/24/2011 16:20:00)[facility] 2011-08-24 21:20:00Not Indicated *NA*(08/24/2011 16:20:00)[facility] NNDEHKOSSU9805-18-43 21:20:00Clear (08/24/2011 16:20:00)[facility] KQJMUKLRAV2801-33-42 21:20:00Yellow *NA*(08/24/2011 16:20:00)[facility] QBKJFDDBVC9966-59-15 21:20:006.5[facility] ToggosfSKAAPQZVEH3702-15-61 21:20:00 1.012[facility] MenafqjIZCQJVUNYF6831-45-00 21:20:00Negative (08/24/2011 16:20:00) [facility] WorthCmkoygaAOKYGYAIMH8934-59-39 21:20:00Negative (08/24/2011 16:20:00) [facility]
[2020-08-31] MEDS ORDERED: HYDROMORPHONE HCL 1 MG/ML INJ ONE ×5 (17:23→22:57)
[2020-08-31 17:49] LABS: Absolute Lymphocytes (CBC) 0.9 K/uL (0.7-4.9); Hematocrit 29.5 % (36.0-45.0); Lymphocytes % 10.4 % (15.3-44.8); MPV 7.4 fL (7.6-11.3); RBC Red Blood Cell Count 3.24 M/uL (3.86-4.86)
[2020-08-31 18:00] LABS: Protime INR 0.97
[2020-08-31 18:18] LABS: Potassium 4.7 mmol/L (3.5-5.1)
--- NOTE | 2020-08-31 18:32 | ER ---
Nurse's Notes [facility] Name: Lucrecia Vargas Age: 60 yrs Sex: Female : 1960 Arrival Date: 08/31/2020 Time: 16:37 Bed 15 Private MD: Diagnosis: Dislocation of internal left hip prosthesis Presentation: 08/31 16:38 Chief complaint: EMS states: SPONTANEOUS LEFT HIP DISLOCATION. Coronavirus screen: At bp this time, the client does not indicate any symptoms associated with coronavirus-19. Ebola Screen: No symptoms or risks identified at this time. Initial Sepsis Screen: Does the patient meet any 2 criteria? No. Patient's initial sepsis screen is negative. Does the patient have a suspected source of infection? No. Patient's initial sepsis screen is negative. Risk Assessment: Do you want to hurt yourself or someone else? Patient reports no desire to harm self or others. Onset of symptoms was August 31, 2020 at 16:00. 16:38 Method Of Arrival: EMS: [facility] bp 16:38 Acuity: ROSARIO 3 bp 16:40 Care prior to arrival: Medication(s) given: FENTANYL 100 MCG IV initiated. 20 GA, in bp the left antecubital area. 16:47 Note LEFT TOTAL HIP LAST MONTH, WOUND VAC IN PLACE. bp Triage Assessment: 16:41 General: Appears distressed, uncomfortable, Behavior is cooperative, appropriate for bp age, anxious. Pain: Complains of pain in left hip. EENT: No deficits noted. Neuro: No deficits noted. Cardiovascular: No deficits noted. Respiratory: No deficits noted. GI: No signs and/or symptoms were reported involving the gastrointestinal system. : No signs and/or symptoms were reported regarding the genitourinary system. Derm: No deficits noted. Musculoskeletal: Bony deformity noted of left hip. Historical: - Allergies: 16:41 No Known Allergies; bp - Home Meds: 16:41 Atenolol Oral [Active]; duloxetine Oral [Active]; hydroxychloroquine Oral [Active]; bp Vitamin D Oral [Active]; Prilosec Oral [Active]; Prednisone Oral [Active]; Mirtazapine Oral [Active]; Methocarbamol Oral [Active]; losartan Oral [Active]; leflunomide Oral [Active]; - PMHx: 16:41 acid reflux; Depression; Endometriosis; Hypertension; Rheumatoid Arthritis; Sjogren's bp Syndrome; - PSHx: 16:41 LEFT TOTAL HIP; bp - Immunization history:: Adult Immunizations up to date. - Social history:: Smoking status: Patient denies any tobacco usage or history of. Screenin:41 Abuse screen: Denies threats or abuse. Denies injuries from another. Nutritional bp screening: No deficits noted. Tuberculosis screening: No symptoms or risk factors identified. Fall Risk None identified. Assessment: 16:41 General: SEE TRIAGE NOTE. bp 18:00 Reassessment: No changes from previously documented assessment. Patient and/or family bp updated on plan of care and expected duration. Pain level reassessed. SIKHISM TRANSFER PENDING. 19:36 General: Appears in no apparent distress. comfortable, Behavior is calm, cooperative, rr5 appropriate for age, on right side lying position, awaiting for transfer acceptance. Pain: Complains of pain in left hip. Neuro: Level of Consciousness is awake, alert, obeys commands, Oriented to person, place, time. Cardiovascular: Capillary refill < 3 seconds Patient's skin is warm and dry. Respiratory: Airway is patent Respiratory effort is even, unlabored, Respiratory pattern is regular, symmetrical. GI: No signs and/or symptoms were reported involving the gastrointestinal system. : No signs and/or symptoms were reported regarding the genitourinary system. EENT: No signs and/or symptoms were reported regarding the EENT system. Derm: Skin is intact, is healthy with good turgor, Wound noted left hip Wound is post operation wound left hip wound vac noted. Musculoskeletal: Capillary refill < 3 seconds, Reports pain in left hip. 20:45 Reassessment: Patient appears in no apparent distress at this time. Patient is alert, rr5 oriented x 3, equal unlabored respirations, skin warm/dry/pink. complaint of left hip pain, ED provider aware with order made and carriedout. 22:11 Reassessment: gave report to harry from [facility]. rr5 22:46 Reassessment: Patient appears in no apparent distress at this time. Patient is alert, rr5 oriented x 3, equal unlabored respirations, skin warm/dry/pink. report given to [facility] awake alert vital signs taken and recorded. Vital Signs: 16:38 BP 108 / 74; Pulse 74; Resp 16; Pulse Ox 94% ; bp 18:00 BP 103 / 90; Pulse 74; Resp 16; Pulse Ox 98% ; bp 19:38 BP 117 / 79; Pulse 75; Resp 16; Temp 98; Pulse Ox 98% ; rr5 20:40 BP 119 / 65; Pulse 70; Resp 16; Temp 98.2; Pulse Ox 98% ; Weight 77.11 kg; Height 5 ft. rr5 6 in. (167.64 cm); Pain 9/10; 22:00 BP 117 / 62; Pulse 76; Resp 16; Pulse Ox 98% ; rr5 22:47 BP 121 / 80; Pulse 75; Resp 19; Pulse Ox 98% ; rr5 20:40 Body Mass Index 27.44 (77.11 kg, 167.64 cm) rr5 ED Course: 16:37 Patient arrived in ED. bp 16:39 Triage completed. bp 16:41 Arm band placed on. bp 16:41 Patient has correct armband on for positive identification. Bed in low position. Call bp light in reach. Side rails up X2. 16:41 Maintain EMS IV. Dressing intact. Good blood return noted. Site clean \T\ dry. Gauge \T\ bp site: 20 G LEFT AC. 16:47 Gee Galvez, KELSEY is Primary Nurse. bp 17:10 Chris Greer PA is PHCP. jr8 17:10 Stone Miller MD is Attending Physician. jr8 18:15 initiated transfer to [facility], no beds at this time, but discharge is expected soon, bd pt will be accepted when bed becomes available and covid test is complete, per [place]. 18:47 XRAY Hip LEFT 2 view In Process Unspecified. EDMS 22:51 No provider procedures requiring assistance completed. Patient transferred, IV remains rr5 in place. intact, No redness/swelling at site. Administered Medications: 17:10 Drug: Dilaudid 1 mg Route: IVP; Site: left antecubital; bp 18:09 Follow up: Response: Pain is decreased bp 17:30 Drug: Dilaudid 1 mg Route: IVP; Site: left antecubital; bp 18:09 Follow up: Response: Pain is decreased bp 20:51 Drug: Dilaudid 1 mg {Note: rass 0.} Route: IVP; Site: left antecubital; rr5 22:00 Follow up: Response: No adverse reaction; Pain is decreased; RASS: Alert and Calm (0) rr5 22:45 Drug: Dilaudid 1 mg {Note: rass 0.} Route: IVP; Site: left antecubital; rr5 22:52 Follow up: Response: Medication administered at discharge.; RASS: Alert and Calm (0) rr5 Outcome: 18:32 ER care complete, transfer ordered by . jr8 22:51 Transferred by ground EMS to [facility], Transfer form completed. rr5 22:51 Condition: stable 22:51 Instructed on the need for transfer. 22:51 Patient left the ED. rr5 Signatures: Dispatcher [employer] EDMS Nelida Gan Josh, PA PA jr8 Gee Galvez, RN RN bp Kip Paz, RN RN rr5
--- NOTE | 2020-08-31 18:32 | EDPHYS ---
Physician Documentation [facility] Name: Lucrecia Vargas Age: 60 yrs Sex: Female : 1960 Arrival Date: 08/31/2020 Time: 16:37 Bed 15 Private MD: ED Physician Stone Miller HPI: 08/31 19:52 This 60 yrs old Female presents to ER via EMS with complaints of Hip Injury. jr8 19:52 The patient or guardian reports decreased range of motion, deformity, pain. that jr8 occurred at home, sustained from twisting motion The patient is not able to ambulate. Patient is not able to bear weight. There is no radiation of the patient's discomfort. The complaints affect the left leg. Onset: The symptoms/episode began/occurred acutely, today. Modifying factors: The symptoms are alleviated by nothing, the symptoms are aggravated by any movement. Associated signs and symptoms: Pertinent positives: None. Severity of symptoms: At their worst the symptoms were moderate, in the emergency department the symptoms are unchanged. The patient has been recently seen by a physician:. Patient stated that she recently had hip surgery on left side from fracture. Today while sitting on her bed bent over and twisted. [place] pop in left hip which immediately caused pain. Stated that she felt it pop out of place. Since then has not been able to move or bear weight on left side . Historical: - Allergies: 16:41 No Known Allergies; bp - Home Meds: 16:41 Atenolol Oral [Active]; duloxetine Oral [Active]; hydroxychloroquine Oral [Active]; bp Vitamin D Oral [Active]; Prilosec Oral [Active]; Prednisone Oral [Active]; Mirtazapine Oral [Active]; Methocarbamol Oral [Active]; losartan Oral [Active]; leflunomide Oral [Active]; - PMHx: 16:41 acid reflux; Depression; Endometriosis; Hypertension; Rheumatoid Arthritis; Sjogren's bp Syndrome; - PSHx: 16:41 LEFT TOTAL HIP; bp - Immunization history:: Adult Immunizations up to date. - Social history:: Smoking status: Patient denies any tobacco usage or history of. ROS: 19:52 Eyes: Negative for injury, pain, redness, and discharge, ENT: Negative for injury, jr8 pain, and discharge, Neck: Negative for injury, pain, and swelling, Cardiovascular: Negative for chest pain, palpitations, and edema, Respiratory: Negative for shortness of breath, cough, wheezing, and pleuritic chest pain, Abdomen/GI: Negative for abdominal pain, nausea, vomiting, diarrhea, and constipation, Back: Negative for injury and pain, Skin: Negative for injury, rash, and discoloration, Neuro: Negative for headache, weakness, numbness, tingling, and seizure. 19:52 MS/extremity: Positive for decreased range of motion, deformity, pain, tenderness, of the left leg. Exam: 19:52 Cardiovascular: Regular rate and rhythm with a normal S1 and S2. No gallops, murmurs, jr8 or rubs. Normal PMI, no JVD. No pulse deficits. Respiratory: Lungs have equal breath sounds bilaterally, clear to auscultation and percussion. No rales, rhonchi or wheezes noted. No increased work of breathing, no retractions or nasal flaring. 19:52 Abdomen/GI: Soft, non-tender, with normal bowel sounds. No distension or tympany. No guarding or rebound. No evidence of tenderness throughout. Back: No spinal tenderness. No costovertebral tenderness. Full range of motion. Skin: Warm, dry with normal turgor. Normal color with no rashes, no lesions, and no evidence of cellulitis. Neuro: Awake and alert, GCS 15, oriented to person, place, time, and situation. Cranial nerves II-XII grossly intact. Motor strength 5/5 in all extremities. Sensory grossly intact. Cerebellar exam normal. Normal gait. 19:52 Constitutional: The patient appears alert, awake, uncomfortable. 19:52 Musculoskeletal/extremity: Extremities: grossly normal except: noted in the left leg: decreased ROM, deformity, pain, Patient has wound vac in place to left trochanteric region. No surrounding erythema seen. Tenderness to region noted. Patient has pain with passive and active ROM. Decreased ROM present secondary to pain and suspected dislocation as well. Pulses 2+ in affected extremity with normal sensation and motor function from the knee down . Vital Signs: 16:38 BP 108 / 74; Pulse 74; Resp 16; Pulse Ox 94% ; bp 18:00 BP 103 / 90; Pulse 74; Resp 16; Pulse Ox 98% ; bp 19:38 BP 117 / 79; Pulse 75; Resp 16; Temp 98; Pulse Ox 98% ; rr5 20:40 BP 119 / 65; Pulse 70; Resp 16; Temp 98.2; Pulse Ox 98% ; Weight 77.11 kg; Height 5 ft. rr5 6 in. (167.64 cm); Pain 9/10; 22:00 BP 117 / 62; Pulse 76; Resp 16; Pulse Ox 98% ; rr5 22:47 BP 121 / 80; Pulse 75; Resp 19; Pulse Ox 98% ; rr5 20:40 Body Mass Index 27.44 (77.11 kg, 167.64 cm) rr5 MDM: 17:12 Patient medically screened. jr8 19:52 Data reviewed: vital signs, nurses notes, lab test result(s), radiologic studies, plain jr8 films. Data interpreted: Pulse oximetry: on room air is 98 %. Interpretation: normal. Counseling: I had a detailed discussion with the patient and/or guardian regarding: the historical points, exam findings, and any diagnostic results supporting the discharge/admit diagnosis, lab results, radiology results, the need to transfer to another facility, [facility] does not immediately have the required specialist. 08/31 17:11 Order name: CBC with Diff; Complete Time: 17:54 [facility] 08/31 17:11 Order name: Basic Metabolic Panel; Complete Time: 18:28 [facility] 08/31 17:11 Order name: Protime (+inr); Complete Time: 18:28 [facility] 08/31 17:11 Order name: Ptt, Activated; Complete Time: 18:28 [facility] 08/31 18:15 Order name: COVID-19 : Document "Date of Symptom Onset" if Symptomatic. 08/31 18:28 Order name: XRAY Hip LEFT 2 view; Complete Time: 19:31 [facility] 08/31 20:10 Order name: SARS-COV-2 RT PCR; Complete Time: 20:21 EDMS Administered Medications: 17:10 Drug: Dilaudid 1 mg Route: IVP; Site: left antecubital; bp 18:09 Follow up: Response: Pain is decreased bp 17:30 Drug: Dilaudid 1 mg Route: IVP; Site: left antecubital; bp 18:09 Follow up: Response: Pain is decreased bp 20:51 Drug: Dilaudid 1 mg {Note: rass 0.} Route: IVP; Site: left antecubital; rr5 22:00 Follow up: Response: No adverse reaction; Pain is decreased; RASS: Alert and Calm (0) rr5 22:45 Drug: Dilaudid 1 mg {Note: rass 0.} Route: IVP; Site: left antecubital; rr5 22:52 Follow up: Response: Medication administered at discharge.; RASS: Alert and Calm (0) rr5 Disposition: 09/01 08:00 Co-signature as Attending Physician, Stone Miller MD I agree with the assessment and kdr plan of care. Disposition: 08/31/20 18:32 Transfer ordered to [facility]. Diagnosis is Dislocation of internal left hip prosthesis. - Reason for transfer: Higher level of care. - Accepting physician is Dr. Young. - Condition is Stable. - Problem is new. - Symptoms have improved. Signatures: Dispatcher [employer] EDCT Stone Miller MD MD [facility] Chris Greer PA PA jr8 Gee Galvez RN RN Kip Cortez, KELSEY RN rr5 Corrections: (The following items were deleted from the chart) 08/31 17:27 17:12 Hip Left 2 View+RAD.RAD.BRZ ordered. EDCT EDMS 19:08 18:16 CORONAVIRUS ordered. EDMS EDMS 22:51 18:32 08/31/2020 18:32 Transfer ordered to [facility]. Diagnosis is Dislocation rr5 of internal left hip prosthesis. Reason for transfer: Higher level of care. Accepting physician is Dr. Young. Condition is Stable. Problem is new. Symptoms have improved. jr8
--- NOTE | 2020-08-31 19:07 | RAD REPORT ---
EXAM DESCRIPTION: RAD - Hip Left 2 View - 08/31/2020 6:47 pm CLINICAL HISTORY: PAIN COMPARISON: Hip Left 2 View dated 02/15/2020 FINDINGS: Single portable view of the left hip obtained. The femoral component has been dislocated f rom the acetabular cup and displaced superiorly. There is overlap of the femoral head with the acetab ular cup. Lesser trochanter remains a free fracture fragment. There is heterotopic bony remodeling at the proxi mal shaft. Cerclage wire surrounds the proximal shaft of the femur which is midshaft of the femoral c omponent. Bone resorption changes are present at the greater trochanter. An acute fracture is not identified. Comparison imaging was pre-surgical. There is no intervening im aging to establish baseline appearance of the proximal femur. Soft tissue contusion and edema changes are present. IMPRESSION: Superior dislocation of the femoral component from the left acetabular cup. Extensive remodeling changes to the proximal left femur noted. An acute fracture is not confirmed. No postsurgical imaging is available for comparison.
[2020-09-01 02:52] VITALS: O2SAT 98
[2020-09-01 02:55] VITALS: TEMP 98.2
[2020-09-01 02:58] VITALS: BP 121/80
== END 2020-08-31 22:51 | disposition short-term general hospital (02) ==
LOC: ER 16:36
DX: T84.021A Dislocation of internal left hip prosthesis, initial encounter (principal); K21.9 Gastro-esophageal reflux disease without esophagitis; F32.9 Major depressive disorder, single episode, unspecified; I10 Essential (primary) hypertension; M06.9 Rheumatoid arthritis, unspecified; M35.00 Sjogren syndrome, unspecified; Z20.822 Contact with and (suspected) exposure to COVID-19
CPT/HCPCS: 85025; 80048; 36415; 85610; 85730; 73502; 96374; 99285; U0003; J1170 ×5

== ENCOUNTER 2020-09-15 11:56 | Emergency (ER) | payer OTHER ==
--- OUTSIDE RECORDS SUMMARY | 2020-09-15 12:02 | XMS REPORT | Continuity of Care Document ---
:1960 Author Organization [facility] t Address [address] [place] [address] Care Team Providers Name Role Phone PEPITO [...] 00:00: Vince HERNIATED 00 DISC Active 08/06/2016 [facility] M54.16 - Diagnosis Active 2015-062016-05-19 M emoria "RADICULOP 0-24 16:22:00 l ATHY, M54.16 - 00:01: Tomy n LUMBAR "RADICULOP 00 REGION" ATHY, LUMBAR REGION" Active 04/02/2016 [facility] HERNIATED Diagnosis Active 2016-08-28 Memoria DISCS 8-24 18:04:00 l 00:00: Vince HERNIATED 00 DISCS Active 02/01/2016 [facility] M25.561 - Diagnosis Active 2014-062015-05-17 Memoria PAIN IN -20 12:44:00 l RIGHT KNEE M25.561 00:01: Her felder - PAIN IN 00 RIGHT KNEE Active 04/29/2015 [facility] GERD,[id number] Diagnosis Active 2012-12-02 Memoria 6-20 10:06:00 l 00:00: [place] GERD,[id number] 00 Active 11/27/2012 [facility] GASTROGAST Diagnosis Active 2011-08-30 Memoria DWIGHT 3-14 15:24:00 l FISTULA 00:00: Vince GASTROGAST 00 DWIGHT FISTULA Active 08/22/2011 [facility] Anxiety Problem Active 2017-11-26 Teofilo osiris (finding) - 13:22:41 l Anxiety 00:00: Vince (finding) 00 Active 06/10/2011 Problem 11/26/2017 Medical [facility] her [facility], [facility] Clarke[facility], [facility] [place] Anxiety Problem Active 2012-12-04 Teofilo osiris - 20:55:13 l Anxiety 00:00: [place] 00 Active 06/10/2011 Problem 12/04/2012 [facility] Clarke,[facility] GERD Diagnosis Active 2010-062011-06-12 Mem oria 530.11 - 09:55:00 l GERD 00:00: Vince 530.11 00 Active 06/07/2011 [facility] Ankylosing Problem Resolve 2012-12-04 Memoria spondyliti d 20:55:13 l s [place] Ankylosing spondyliti s Resolved Problem 12/04/2012 [facility] Endometrio Problem Resolve 2012-12-04 Memoria sis d 20:55:13 l Vince Endometrio sis Resolved Problem 12/04/2012 [facility] Abdominal Problem Active 2017-11-26 Me moria pain 13:22:41 l (finding) Vince Abdominal pain (finding) Active Problem 11/26/2017 Medical [facility], [facility] [place], [facility], [facility] Depressive Problem Active 2017-11-26 M emoria disorder 13:22:41 l (disorder) Tomy n Depressive disorder (disorder) Active Problem 11/26/2017 Medical [facility], [facility] [place], [facility], [facility] History of Problem Active 2017-11-26 M emoria - 13:22:41 l arthrodesi History Her felder s of - (context-d arthrodesi ependent s category) (context-d ependent category) Active Problem 11/26/2017 [facility], [facility] [place],[facility], [facility] Hypertensi Problem Active 2017-11-26 M emoria ve 13:22:41 l disorder, [place] systemic Hypertensi arterial ve (disorder) disorder, systemic arterial (disorder) Active Problem 11/26/2017 [facility], [facility] Vince,[facility], [facility] Pain Problem Active 2017-11-26 Memor ia (finding) 13:22:41 l Pain Vince (finding) Active Problem 11/26/2017 [facility], [facility] [place], [facility], [facility] Prolapsed Problem Active 2017-11-26 Sc moria lumbar 13:22:41 l interverte Tomy n bral disc Prolapsed (disorder) lumbar interverte bral disc (disorder) Active Problem 11/26/2017 Medical Group,[facility], [facility] [place], [facility], [facility] Rectal Problem Active 2017-11-26 Memor ia hemorrhage 13:22:41 l (disorder) Rectal Herm cielo hemorrhage (disorder) Active Problem 11/26/2017 Medical Group,[facility], [facility] [place] Reflux Problem Active 2017-11-26 Memor ia (finding) 13:22:41 l Reflux [place] (finding) Active Problem 11/26/2017 [facility], [facility] Vince[facility], [facility] Rheumatoid Problem Active 2017-11-26 M emoria arthritis 13:22:41 l (disorder) Tomy n Rheumatoid arthritis (disorder) Active Problem 11/26/2017 Medical Group,[facility], [facility] [place], [facility] Reflux Problem Active 2012-12-04 Memor ia 20:55:13 l Reflux [place] Active Problem 12/04/2012 RACHELLE Clarke,[facility] Abdominal Problem Active 2012-12-04 Me moria pain 20:55:13 l [place] Abdominal pain Active Problem 12/04/2012 [facility] Depression Problem Active 2012-12-04 M emoria 20:55:13 l [place] Depression Active Problem 12/04/2012 [facility] Pain Problem Active 2012-12-04 Memor ia 20:55:13 l Pain [place] Active Problem 12/04/2012 RACHELLE Clarke,[facility] Rectal Problem Active 2012-12-04 Memor ia bleeding 20:55:13 l Rectal Vince bleeding Active Problem 12/04/2012 [facility] Rheumatoid Problem Active 2012-12-04 M emoria arthritis 20:55:13 l Vince Rheumatoid arthritis Active Problem 12/04/2012 [facility] ADMINISTRT Diagnosis Active 2011-08-30 Memoria VE ENCOUNT 15:24:00 l NOS [place] ADMINISTRT VE ENCOUNT NOS Active [facility] 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 Dolores 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 [facility] Scoliosis, Problem 2017-11-25 M emoria unspecifie 14:11:46 l d Vince Scoliosis, unspecifie d 11/25/2017 [facility] Low back Problem 2017-11-25 Mem oria pain 14:11:46 l Low back Tomy n pain 8 [facility] Radiculopa Problem 2017-11-25 M emoria thy, 14:11:46 l lumbar Vince region Radiculopa thy, lumbar region 11/25/2017 RACHELLE [place] Other Problem 2017-11-25 Memor ia specified 14:11:46 l disorders Other Tomy n of bone specified density disorders and of bone structure, density other site and structure, other site 11/25/2017 RACHELLE [facility] Ankylosing Problem Resolve 2017-11-26 Memoria spondyliti d 13:22:41 l s Vince (disorder) Ankylosing spondyliti s (disorder) Resolved Problem 11/26/2017 Medical Group,[facility], [facility] [place],[facility] Endometrio Problem Resolve 2017-11-26 Memoria sis d 13:22:41 l (disorder) Tomy n Endometrio sis (disorder) Resolved Problem 11/26/2017 Medical Group,[facility], [facility] [place], [facility] History of Past Illness Condition Condition Condition Status Onset Resolution Last Treating Co mments Source Name Details Category Date Date Treatment Clinician Date Sacrococcy Problem 2017-0 2017-11-25 2017-11-25 Memoria geal 3-17 14:11:46 14:11:46 l disorders, 04:39: Tomy n not Sacrococcy 49 elsewhere geal classified disorders, not elsewhere classified 08/24/2017 11[facility]25/2017 [facility] Allergies, Adverse Reactions, Alerts Allergy Allergy Status [...] 00 cap, 1 Refill(s), called to pharmacy [facility] 2016-06 Yes 1 - 2 tab, Memoria [...] 30 cap, 1 Capsule Refill(s), [Cymbalta] Pharmacy: [facility] [address] [place] [address] 2016-06 Yes 1 tab, PO, Memoria en 325 MG / 1-20 Q6H, PRN l Hydrocodone 16:26: for pain, H ermann Bitartrate 00 # 24 tab, 10 MG Oral 0 Tablet Refill(s) [[place] 10/325] Ondansetron No Notes: Teofilo osiris 08-14 (Same as: l 18:29: Zofran) MEDICATION WASTE Product Size: 4 mg Product Wasted: ___ mg Oxycodone No Notes: Memori a 08-14 (Same as: l 18:29: Roxicodone ) Labetalol No 10 mg, 2 Teofilo osiris 3-07 mL, Route: l 18:29: IVP, Drug form: INJ, Q5Min, Dosing Weight 77.273, kg, PRN Elevated BP, Start date: 08/14/16 12:29:00 [employer], Duration: 5 doses or times, Stop date: [...] ermann Bitartrate 00 10 MG Oral Tablet [[place] 10/325] Methocarbam Yes 500 mg = 1 [...] NOT capsular SHAKE) antigen before diphtheria administra [id number] tion. protein (Same as: conjugate Prevnar vaccine / 13) Streptococc us pneumoniae serotype 14 capsular antigen diphtheria [id number] protein conjugate vaccine / Streptococc us pneumoniae [...] a 02-13 (Same As: l 20:00: Ancef, [place] 00 Kefzol) MEDICATION WASTE Product Size: 1000 mg Product Wasted: ___ mg Dexamethaso No Notes: Teofilo osiris ne 02-13 Concentrat l 17:00: ion: Vince 00 4mg/ml pantoprazol No Notes: Teofilo osiris e 02-13 Tablet l 15:05: should not Vince 00 be chewed or crushed. (Same as: Protonix) Losartan No Notes: Memoria 02-13 (Same as: l 15:05: Cozaar) [place] Labetalol No 10 mg, Memori a 02-13 [...] Memoria 02-13 (Same as: l 14:00: Cymbalta) [place] 00 (Do Not Crush) Robaxin No Notes: Memoria 02-13 (Same l 14:00: as:Robaxin [place] 00 ) Famotidine No Notes: Memor ia 02-13 (Same as: l 14:00: Pepcid) [place] Can be dilute in 5-10cc NS IVP: Slow IV push over at least 2 minutes. Docusate No Notes: Memoria Sodium 100 02-13 (Same as: l MG Oral 14:00: Colace) Vince Capsule 00 (Do Not Crush) Naloxone No Notes: Memoria 02-13 Same as l 13:33: Narcan [place] 00 Flumazenil No Notes: Memor ia 02-13 (Same as: l 13:33: Romazicon) [place] 00 Ondansetron No Notes: Teofilo osiris 02-13 (Same as: l 13:33: Zofran) Vince 00 MEDICATION WASTE Product Size: 4 mg Product Wasted: ___ mg Hydromorpho No Notes: Teofilo osiris ne 02-13 Same as: l 13:33: Dilaudid Vince Hydralazine No Notes: Teofilo osiris 02-13 (Same as: l 13:33: Apresoline Vince 00 ) Push over 5 minutes Regular No 60 Memoria Insulin, - units) l Human 100 13:13: WASTE: F/P He rmann UNT/ML 00 - Black; E Injectable - Solution Municipal Trash Bin Stable for 28 days at room temperatur e Expires in days from ____Date Dextrose No 6.25 gm, Memor ia 50% Syringe 02-13 12.5 mL, l 13:13: Route: [place] 00 IVP, Drug Form: INJ, Dosing Weight 79.545, kg, PRN, PRN Abnormal Lab Result, Start date: 02/14/16 8:13:00 CDT, Duration: 30 day, Stop date: 03/15/16 8:12:00 CDT Acetaminoph No Notes: Do M emoria en 325 MG / 02-13 not exceed l Hydrocodone 13:13: 4gm/day of [place] Bitartrate 00 acetaminop 10 MG Oral hen. Tablet (Same as: [[place] 10/325] 325/10) phenol 5 No Notes: Memoria MG/ML 02-13 Chlorasept l Mucosal 13:13: ic [place] Tomy n [place] 00 (Same as: Chlorasept ic, Sore Throat [place]) WASTE: F/P - Black; E - Municipal Trash Bin Ondansetron No Notes: Teofilo osiris 02-13 (Same as: l 13:13: Zofran) [place] 00 MEDICATION WASTE Product Size: 4 mg Product Wasted: ___ mg Morphine No Notes: Memoria 02-13 (Same l 13:13: as:MORPhin [place] 00 e Sulfate) Sodium No 1,000 mL, Memori a Chloride 02-13 Rate: 50 l 0.154 13:13: ml/hr, Vince MEQ/ML 00 Infuse Injectable over: 20 Solution hr, Route: IV, Dosing Weight 79.545 kg, Total Volume: 1,000, Start date: 02/14/16 8:13:00 CDT, Duration: 30 day, Stop date: 03/15/16 8:12:00 CDT Ancef + No Notes: Memoria sodium 02-13 (Same As: l chloride 12:27: Ancef, [place] 0.9% INJ 00 Kefzol) 100 mL MEDICATION WASTE Product Size: 1000 mg Product Wasted: ___ mg ceFAZolin No Notes: Memori a 02-12 Same as: l 04:00: Ancef [place] 00 Celebrex 50 Yes 50 mg, 1 Me moria mg oral 6-25 cap, PO, l capsule 16:16: BID, 60 [place] 49 cap, Substituti on Allowed, CAP Cymbalta [...] 3-24 [place] tab, l 02:00: Route: PO, [place] 00 Drug form: TAB, Bedtime, Start date: 08/31/11 21:00:00, Duration: 30 day, Stop date: 09/29/11 21:00:00 Prozac No Ketan 20 mg, 1 Mem oria 3-23 [place] cap, l 17:38: Route: PO, [place] 00 Drug form: CAP, QAM, Start date: [...] [place] mL, Route: l 23:00: IVP, Drug [place] 00 form: INJ, Q8H, Start date: 08/30/11 18:00:00, Duration: 2 day, Stop date: 09/01/11 10:00:00 Tylenol 2011- No Ketan 650 mg, 1 M emoria 3-22 [place] supp, l 21:50: Route: MI, [place] 00 Drug form: SUPP, Q4H, PRN Fever, Start date: 08/30/11 16:50:00, Duration: 30 day, Stop date: 09/29/11 16:49:00 Phenergan 2011- No Ketan 25 mg, 1 Memoria 3-22 [place] mL, Route: l 21:49: IM, Drug form: INJ, Q4H, PRN Nausea, Start date: 08/30/11 16:49:00, Duration: 30 day, Stop date: 09/29/11 16:48:00 Lactated 2011-0 No Ketan 1,000 mL, Memoria Ringers 3-22 [place] Rate: 125 l Injection 21:49: ml/hr, Tomy [...] emoria 3-22 [place] Route: l 18:33: IVPB, Vince 00 ONCE, Start date: 08/30/11 13:33:00, Stop date: 08/30/11 13:33:00 Phenergan 2011-0 No Ketan 12.5 mg, Memoria 3-22 [place] 0.5 mL, l 17:52: Route: [place] IVPB, Q6H, PRN Nausea & Vomiting, Start date: 08/30/11 12:52:00, Duration: 30 day, Stop date: 09/29/11 12:51:00 Zofran No Ketan 4 mg, 1 Teofilo osiris - [place] tab, l 17:51: Route: PO, [place] 00 Drug form: TAB, Q8H, PRN Nausea & Vomiting, Start date: 08/30/11 12:51:00, Duration: 30 day, Stop date: 09/29/11 12:50:00 naloxone No Ketan 0.2 mg, Me moria 08-29 [place] 0.5 mL, l 17:50: Route: [place] IVP, Drug form: INJ, Q5Min, PRN Narcotic Reversal, Start date: 08/30/11 12:50:00, Duration: 30 day, Stop date: 09/29/11 12:49:00 morphine No Ketan IV, Start Memoria Sulfate 30 08-29 [place] date: l mg 17:49: 08/30/11 [place] 00 12:49:00, Duration: 30, 30 ml heparin No Ketan 5,000 Memor ia - [place] unit, l 14:34: Route: [place] 00 SUB-Q, ONCE, Start date: 08/30/11 9:34:00, Stop date: 08/30/11 9:34:00 Invanz No Ketan 1 gm, Memori a 08-29 [place] Route: l 11:30: IVPB, PRE Vince 00 OP, Start date: 08/30/11 6:30:00, Stop date: 08/30/11 17:00:00 chlorhexidi No Ketan 15 mL, Memoria ne topical 08-29 [place] Route: l 0.12% 11:30: S&SPIT, [place] liquid 00 PRE OP, Drug form: LIQ, Start date: 08/30/11 6:30:00, Stop date: 08/30/11 17:00:00 Vital Signs Vital Name Observation Time Observation Value Comments Source BMI Calculated 2017-08-20 20:22:00 Maryam Shahid Weight 2017-08-20 20:22:00 [facility] Height 2017-08-20 20:22:00 172.72 cm [facility] [place] Heart Rate 2017-08-20 20:22:00 [facility] [place] Temperature Oral (F) 2017-08-20 20:22:00 97.7 F [facility] [place] Systolic (mm Hg) 2017-08-20 20:22:00 Teofilo rial [place] Diastolic (mm Hg) 2017-08-20 20:22:00 Mem orial [place] Height 2017-07-09 20:53:00 172.72 cm [facility] [place] BMI Calculated 2017-07-09 20:53:00 Memori al [place] Weight 2017-07-09 20:53:00 [facility] [place] Heart Rate 2017-07-09 20:53:00 [facility] [place] Systolic (mm Hg) 2017-07-09 20:53:00 Teofilo rial [place] Diastolic (mm Hg) 2017-07-09 20:53:00 Mem orial [place] BMI Calculated 2017-06-06 13:00:00 Memori al [place] Weight 2017-06-06 13:00:00 [facility] [place] Height 2017-06-06 13:00:00 172.72 cm [facility] [place] Heart Rate 2017-06-06 13:00:00 [facility] [place] Temperature Oral (F) 2017-06-06 13:00:00 98.1 F [facility] [place] Systolic (mm Hg) 2017-06-06 13:00:00 Teofilo rial [place] Diastolic (mm Hg) 2017-06-06 13:00:00 Mem orial [place] BMI Calculated 2017-05-29 19:33:00 Memori al [place] Weight 2017-05-29 19:33:00 [facility] [place] Heart Rate 2017-05-29 19:33:00 [facility] [place] Systolic (mm Hg) 2017-05-29 19:33:00 Teofilo rial [place] Diastolic (mm Hg) 2017-05-29 19:33:00 Mem orial [place] Height 2017-05-29 19:33:00 172.72 cm [facility] [place] Height 2017-05-20 20:39:00 172.72 cm [facility] [place] Systolic (mm Hg) 2017-05-20 20:39:00 Teofilo rial [place] Diastolic (mm Hg) 2017-05-20 20:39:00 Mem orial [place] Heart Rate 2017-05-20 20:39:00 [facility] [place] BMI Calculated 2017-04-29 16:18:00 Memori al [place] Height 2017-04-29 16:18:00 172.72 cm [facility] [place] Weight 2017-04-29 16:18:00 [facility] [place] Systolic (mm Hg) 2017-04-29 16:18:00 Teofilo rial [place] Diastolic (mm Hg) 2017-04-29 16:18:00 Mem orial [place] Temperature Oral (F) 2017-04-29 16:18:00 98.2 F [facility] [place] BMI Calculated 2017-04-26 20:56:00 Memori al [place] Weight 2017-04-26 20:56:00 [facility] [place] Height 2017-04-26 20:56:00 173.99 cm [facility] [place] Temperature Oral (F) 2017-04-26 20:56:00 98.5 F [facility] [place] Heart Rate 2017-04-26 20:56:00 [facility] [place] Systolic (mm Hg) 2017-04-26 20:56:00 Teofilo rial [place] Diastolic (mm Hg) 2017-04-26 20:56:00 Mem orial [place] Respitory Rate 2016-08-14 19:00:00 Memori al [place] Systolic (mm Hg) 2016-08-14 19:00:00 Teofilo rial [place] Diastolic (mm Hg) 2016-08-14 19:00:00 Mem orial [place] Systolic (mm Hg) 2016-08-14 18:45:00 Teofilo rial [place] Diastolic (mm Hg) 2016-08-14 18:45:00 Mem orial [place] Respitory Rate 2016-08-14 18:45:00 Memori al [place] Systolic (mm Hg) 2016-08-14 18:30:00 Teofilo rial [place] Diastolic (mm Hg) 2016-08-14 18:30:00 Mem orial [place] Respitory Rate 2016-08-14 18:30:00 Memori al [place] Heart Rate 2016-08-14 13:57:00 [facility] [place] Height 2016-08-14 13:54:00 172.72 cm [facility] [place] BMI Calculated 2016-08-14 13:54:00 Memori al [place] Weight 2016-08-14 13:54:00 [facility] [place] BMI Calculated 2016-08-10 21:13:00 Memori al [place] Weight 2016-08-10 21:13:00 [facility] [place] Height 2016-08-10 21:13:00 172.72 cm [facility] [place] Temperature Oral (F) 2016-02-15 13:08:00 98.1 F [facility] [place] Systolic (mm Hg) 2016-02-15 13:08:00 Teofilo rial [place] Diastolic (mm Hg) 2016-02-15 13:08:00 Mem orial [place] Heart Rate 2016-02-15 13:08:00 [facility] [place] Respitory Rate 2016-02-15 13:08:00 Memori al [place] Systolic (mm Hg) 2016-02-15 09:06:00 Teofilo rial [place] Diastolic (mm Hg) 2016-02-15 09:06:00 Mem orial [place] Respitory Rate 2016-02-15 09:06:00 Memori al [place] Heart Rate 2016-02-15 09:06:00 [facility] [place] Temperature Oral (F) 2016-02-15 09:06:00 98.1 F [facility] [place] Temperature Oral (F) 2016-02-15 04:43:00 98.2 F [facility] [place] Systolic (mm Hg) 2016-02-15 04:43:00 Teofilo rial [place] Diastolic (mm Hg) 2016-02-15 04:43:00 Mem orial [place] Respitory Rate 2016-02-15 04:43:00 Memori al [place] Heart Rate 2016-02-15 04:43:00 [facility] [place] Height 2016 11:41:00 172.72 cm [facility] [place] Weight 2016 11:41:00 [facility] [place] BMI Calculated 2016 11:41:00 Memori al [place] Height 2016-02-09 15:30:00 172.72 cm [facility] [place] BMI Calculated 2016-02-09 15:30:00 Memori al [place] Weight 2016-02-09 15:30:00 [facility] [place] Height 2012-12-02 15:57:00 172.72 cm [facility] [place] Weight 2012-12-02 15:57:00 [facility] [place] Temperature Oral (F) 2011-09-01 00:10:00 98.9 F [facility] [place] Systolic (mm Hg) 2011-09-01 00:10:00 Teofilo rial [place] Heart Rate 2011-09-01 00:10:00 [facility] [place] Respitory Rate 2011-09-01 00:10:00 Memori al [place] Diastolic (mm Hg) 2011-09-01 00:10:00 Mem orial [place] Diastolic (mm Hg) 2011-08-31 20:00:00 Mem orial [place] Systolic (mm Hg) 2011-08-31 20:00:00 Teofilo rial [place] Respitory Rate 2011-08-31 20:00:00 Memori al [place] Temperature Oral (F) 2011-08-31 20:00:00 98.7 F [facility] [place] Heart Rate 2011-08-31 20:00:00 [facility] [place] Diastolic (mm Hg) 2011-08-31 16:40:00 Mem orial [place] Systolic (mm Hg) 2011-08-31 16:40:00 Teofilo rial [place] Respitory Rate 2011-08-31 16:40:00 Memori al [place] Heart Rate 2011-08-31 16:40:00 [facility] [place] Temperature Oral (F) 2011-08-31 16:40:00 98.8 F [facility] [place] Weight 2011-08-24 21:17:00 [facility] [place] Height 2011-08-24 21:17:00 175.26 cm [facility] [place] Weight 2011-06-12 16:09:00 [facility] [place] Height 2011-06-12 16:09:00 [facility] Procedure Date / Time Performing Clinician Source Performed Injection(s), anesthetic 2017-07-18 21:26:00 [facility] orial [place] agent and/or steroid, transforaminal epidural, with imaging guidance (fluoroscopy or CT); lumbar or sacral, single level Epidural steroid 2017-07-09 06:00:00 [facility] rmann injection<sup>1</sup> Epidural steroid 2017-05-21 06:00:00 [facility] rmann injection<sup>2</sup> Microdiscectomy 2016-08-14 06:00:00 [facility] Cervical discectomy 2016 05:00:00 [facility] Miscellaneous 2011-08-30 05:00:00 [facility] operations<sup>3</sup> Miscellaneous operations 2011-08-30 05:00:00 [facility] orial [place] <sup>1</sup> Arthroscopy of knee [facility] Hysterectomy [facility]<sup>[facility]</sup> Arthroscopy of knee [facility] Vince Jah-en-y gastric bypass Clover Clarke <sup>4</sup> Encounters Start End Encounter Admission Attending Care Care Encounter Source Date/Time Date/Time Type Type Clinicians Facility Department ID 2020-09-12 2020-09-12 Outpatient [facility] [id number] [place] 00:00:00 00:00:[address] 2020-09-12 2020-09-12 Outpatient [facility] [id number] [place] 00:00:00 00:00:[address] 2020-09-12 2020-09-12 Outpatient [facility] [id number] [place] 00:00:00 00:00:[address] 2020-09-01 2020-09-05 Inpatient [facility] [id number] [place] 00:00:00 00:00:[address] 2020-08-23 2020-08-26 Inpatient [facility] [id number] [place] 00:00:00 00:00:[address] 2020-08-19 2020-08-19 Outpatient [facility] [id number] [place] 00:00:00 00:00:[address] 2020-08-16 2020-08-16 Outpatient [facility] [id number] [place] 00:00:00 00:00:[address] 2020-08-11 2020-08-11 Outpatient [facility] [id number] [place] 00:00:00 00:00:[address] 2020-08-01 2020-08-10 Outpatient [facility] [id number] [place] 00:00:00 00:00:[address] 2020-08-01 2020-08-01 Outpatient [facility] [id number] [place] 00:00:00 00:00:[address] 2020-08-01 2020-08-01 Outpatient [facility] [id number] [place] 00:00:00 00:00:00 052 [facility] i 2020-08-01 2020-08-01 Outpatient DALE, [facility] [id number] [place] 00:00:00 00:00:[address] KAREN [address] 2020-08-01 2020-08-01 Outpatient ASHLEY BEYER [facility] [id number] [place] 00:00:00 00:00:[address] 2020-07-18 2020-07-18 Outpatient LEV, [facility] [id number] [place] 00:00:00 00:00:00 REX [address] 2020-07-18 2020-07-18 Outpatient L[facility], [facility] [id number] [place] 00:00:00 00:00:00 REX [address] 2020-07-18 2020-07-18 Outpatient [facility], [facility] [id number] [place] 00:00:00 00:00:00 REX 975 Method i 2020-06-23 2020-06-23 Outpatient DALE [facility] [id number] [place] 00:00:00 00:00:00 KAREN 032 [facility] di 2020-05-26 2020-05-26 Outpatient HUNTER, [facility] [id number] [place] 00:00:00 00:00:00 KAREN 290 [facility] 2020-05-02 2020-05-02 Outpatient HUNTER, [facility] [id number] [place] 00:00:00 00:00:00 KAREN 609 [facility] 2020-04-26 2020-04-26 Emergency Morris, [facility] [id number] 15:53:00 18:18:00 Annalisa Maxwell [id number] [place] [id number] [place] [id number] 2020-04-26 2020-04-26 Orders Doctor GUADALUPE [id number] 00:00:00 00:00:00 Only Unassigned, JOSH [id number] [place] [facility] [id number] 2020-04-14 2020-04-14 Outpatient HUNTER, [facility] [id number] [place] 00:00:00 00:00:00 KAREN [address] 2020-03-14 2020-03-14 Outpatient LEV, [facility] [id number] [place] 00:00:00 00:00:00 REX [address] 2020-03-14 2020-03-14 Outpatient LEV, [facility] [id number] [place] 00:00:00 00:00:00 REX [address] 2020-03-02 2020-03-02 Outpatient JOSE, [facility] [id number] [place] 00:00:00 00:00:00 MARÍA [address] 2020-03-02 2020-03-02 Outpatient JOSE, [facility] [id number] [place] 00:00:00 00:00:00 MARÍA [address] 2020-02-22 2020-02-22 Outpatient HUNTER, [facility] [id number] [place] 00:00:00 00:00:00 KAREN 362 [facility] 2020-02-15 2020-02-17 Inpatient MONTEZ, [facility] [id number] 70 [place] 00:00:00 00:00:00 YANET [address] 2020-01-14 2020-01-14 Outpatient HUNTER, [facility] [id number] [place] 00:00:00 00:00:00 KAREN [address] 2020-01-11 2020-01-11 Outpatient LEV, [facility] [id number] [place] 00:00:00 00:00:00 REX [address] 2020-01-11 2020-01-11 Outpatient LEV, [facility] [id number] [place] 00:00:00 00:00:00 REX [address] 2019-12-28 2019-12-28 Outpatient HUNTER, [facility] [id number] [place] 00:00:00 00:00:00 KAREN [address] 2019-12-16 2019-12-20 Inpatient LEV, [facility] [id number] 07 [place] 00:00:00 00:00:00 REX [address] 2019-12-14 2019-12-14 Outpatient LEV, [facility] [id number] [place] 00:00:00 00:00:00 RXE [address] 2019-12-07 2019-12-07 Outpatient LEV [facility] [id number] [place] 00:00:00 00:00:00 REX [address] 2019-12-07 2019-12-07 Outpatient LEV [facility] [id number] 808 [place] 00:00:00 00:00:00 REX [address] 2019-11-09 2019-11-09 Outpatient LEV [facility] [id number] 500 [place] 00:00:00 00:00:00 REX [address] 2019-11-09 2019-11-09 Outpatient LEV [facility] [id number] [place] 00:00:00 00:00:00 REX [address] 2019-08-03 2019-08-03 Outpatient LEV [facility] [id number] [place] 00:00:00 00:00:00 REX [address] 2017-09-25 2017-09-26 Outpatient MHMISCHER MHMISCHER [id number] 11:46:00 23:59:59 32 2017-08-20 2017-08-20 Outpatient Pasha Goldstein [facility]ER MHMISCHER [id number] 09:30:00 23:59:59 Hwan 29 2017-08-19 2017-08-19 Outpatient Gerson Le MHOIP MHOIP [id number] 13:40:00 23:59:00 C 12 2017-08-14 2017-08-15 Outpatient MHMISCHER MHMISCHER [id number] 12:53:00 23:59:59 31 2017-08-07 2017-08-08 Outpatient MHMISCHER MHMISCHER [id number] 08:24:00 23:59:59 30 2017-08-08 2017-08-08 Outpatient Gerson Le MHMISCHER MHMISCHER [id number] 11:00:00 11:00:00 C 11 2017-07-26 2017-07-27 Outpatient MHMISCHER MHMISCHER [id number] 16:39:00 23:59:59 29 2017-07-22 2017-07-23 Outpatient MHMISCHER MHMISCHER [id number] 17:01:00 23:59:59 28 2017-07-18 2017-07-18 Outpatient Pasha Goldstein M[facility]ER MHMISCHER [id number] 13:40:00 23:59:59 Hwduy 28 2017-07-11 2017-07-12 Outpatient MHMISCHER MHMISCHER [id number] 10:27:00 23:59:59 27 2017-07-11 2017-07-11 Outpatient Stella, [facility]ISCHER MHMISCHER [id number] 09:40:00 09:40:00 Viviana 27 Jessica 2017-07-11 2017-07-11 Outpatient Stella, [facility] MHMISCHER [id number] 09:40:00 09:40:00 Viviana 27 Jessica 2017-07-10 2017-07-10 Outpatient Stanley [facility] [id number] 10:00:00 10:00:00 Kala Torres 18 2017-07-09 2017-07-09 Outpatient Angelita Pasah [facility]ER MHMISCHER [id number] 11:40:00 23:59:59 Aziza 26 2017-07-08 2017-07-09 Outpatient MHMISCHER MHMISCHER [id number] 11:26:00 23:59:59 26 2017-07-09 2017-07-09 Outpatient Stella, [facility]IS[facility]ER MHMISCHER [id number] 13:40:00 13:40:00 Viviana 24 Jessica 2017-07-08 2017-07-08 Outpatient Stella, [facility]IS[facility]ER MHMISCHER [id number] 13:00:00 13:00:00 Viviana 23 Jessica 2017-07-08 2017-07-08 Outpatient Stella, [facility]ISCHER MHMISCHER [id number] 11:40:00 11:40:00 Viviana 25 Jessica 2017-07-03 2017-07-04 Outpatient MHMISCHER MHMISCHER [id number] 11:29:00 23:59:59 25 2017-07-04 2017-07-04 Outpatient Stella, M[facility]ISCHER MHMISCHER [id number] 14:20:00 14:20:00 Viviana 21 Jessica 2017-06-18 2017-06-18 Outpatient Pasha Goldstein [facility] M[facility] [id number] 14:20:00 23:59:59 duy 20 2017-06-18 2017-06-18 Outpatient Pasha Goldstein [facility] M[facility]IS[facility] [id number] 14:20:00 23:59:59 duy 20 2017-06-12 2017-06-13 Outpatient MHMISCHER MHMISCHER [id number] 11:41:00 23:59:59 24 2017-06-13 2017-06-13 Outpatient Stella, M[facility]IS[facility]ER MHMISCHER [id number] 14:20:00 14:20:00 Viviana 19 Jessica 2017-06-12 2017-06-12 Outpatient Stella, [facility]ER MHMISCHER [id number] 10:20:00 10:20:00 Vviiana 15 Jessica 2017-06-11 2017-06-11 Outpatient Stella, [facility] M[facility]IS[facility] [id number] 14:00:00 14:00:00 Viviana 16 Jessica 2017-06-06 2017-06-06 Outpatient Pasha Goldstein [facility] M[facility] [id number] 13:30:00 23:59:59 duy 17 2017-05-29 2017-05-29 Outpatient Pasha Goldstein [facility] M[facility] [id number] 13:20:00 23:59:59 duy 14 2017-05-28 2017-05-29 Outpatient MHMISCHER MHMISCHER [id number] 11:01:00 23:59:59 23 2017-05-23 2017-05-24 Outpatient MHMISCHER MHMISCHER [id number] 14:54:00 23:59:59 22 2017-05-21 2017-05-21 Outpatient Pasha Goldstein M[facility]ER MHMISCHER [id number] 11:20:00 23:59:59 duy 13 2017-05-20 2017-05-20 Outpatient Pasha Goldstein M[facility]ISCHER MHMISCHER [id number] 14:00:00 23:59:59 duy 12 2017-05-14 2017-05-14 Outpatient Gerson Le 2.16.840. 2.16.840. 1. [id number] 15:03:00 23:59:00 C [id number]. [id number] 3.615.30 5.30 2017-05-14 2017-05-14 Outpatient Gerson Le 2.16.840. 2.16.840. 1. [id number] 12:22:00 23:59:00 C [id number]. [id number] 3.615.30 5.30 2017-04-29 2017-04-29 Outpatient Gerson Le MISCHER MHMISCHER [id number] 09:00:00 23:59:59 C 10 2017-04-26 2017-04-26 Outpatient Pasha Goldstein [facility]ER MHMISCHER [id number] 10:15:00 23:59:59 Hwan 2017-04-06 2017-04-06 Outpatient Pasha Goldstein [facility] [id number] 11:12:00 23:59:00 Hwan 2016-08-14 2016-08-14 Outpatient AngelitaPasha [facility] [id number] 07:00:00 23:59:00 [facility] 2016-07-28 2016-07-28 Outpatient Андрей 2.16.840. 2.16.840.1. [id number] 15:58:00 23:59:00 Kan Ulysses [id number] 3.615.30 5.30 2016 2016-02-15 Outpatient Pasha Goldstein [facility] [id number] 06:02:00 11:15:00 duy 2015-05-10 2015-05-10 Outpatient Héctor, OIP MHOIP [id number] 14:29:00 23:59:00 Rajat Bejarano 2014-11-08 2014-11-08 Outpatient [facility]ctor, [facility] [id number] 07:35:00 23:59:00 Rajat Harlan Darci 2014-10-27 2014-10-27 Outpatient Héctor, [facility] [id number] 14:17:00 23:59:00 Rajat Bejarano 2013-12-23 2013-12-23 Outpatient Héctor, [facility] [id number] 14:21:00 23:59:00 Rajat Bejarano 2013-12-08 2013-12-08 Outpatient Héctor, [facility] [id number] 14:11:00 23:59:00 Rajat Bejarano 2013-07-09 2013-07-09 Outpatient [facility] [id number] [facility] 11:35:00 23:59:00 Outpatien Outpatient O utpati t Imaging Imaging [facility] [place] [facility] [place] Results Test Description Test Time Test Comments Results Result Sour e Comments - CT LOWER EXTRM 2020-05-27 W/O C LT 16:09:00 [facility] 1960 Sex: F Patient Name: AYAH ALVARADO Unit No: [id number] EXAMS: CPT CODE: [id number] [place] LOWER EXTRM W/[place] [address] [place] OF THE LEFT PROXIMAL FEMUR AND [...] with ACR practice standards and adherence to external grinder tool's recommendations. Minimal healing of the proximal femoral fracture is seen. Periosteal new bone formation is present. at 1609 Reported and signed by: Charles Perez MD CC: Antwan Nguyen MD Technologist: Raheel Mchugh,RT(R) CTDI: DLP: Trnscrpt: 05/27/2020 (1609) [email or web address] [facility] NAME: AYAH ALVARADONINGHAM [address] [facility] PHYS: BRIMA. - Antwan Nguyen MD : 1960 AGE: 60 SEX: F [place] [address] LOC: Y.RAD PHONE #: [phone] EXAM DATE: 05/27/2020 STATUS: REG CLI FAX #: [phone] RAD #: [id number] D/C DT PAGE 1 Signed Report Patient Name: AYAH ALVARADO Unit No: [id number] EXAMS: CPT CODE: [id number] CT LOWER EXTRM W/[place] [address] <Continued> Orig Print D/T: S: 05/27/2020 (1613) [facility] NAME: AYAH ALVARADO OLNEY [address] [place] [address] PHYS: BRIMA. - Antwan Nguyen MD : 1960 AGE: 60 SEX: F [place] [address] LOC: Y.RAD PHONE #: [phone] EXAM DATE: 05/27/2020 STATUS: REG CLI FAX #: [phone] RAD #: [id number] D/C DT PAGE 2 Signed Report BASIC [...] measure: (test code = GFR) mL/min/1.7 3 q6Opjzwrbqg Range:Healthy A dults >90 mL/min/1.73 m2 For Chronic Kidney Disease: Stage II Mi ld Decrease in GFR 60-9 0 Stage III Moderate Decrease in GFR 30-59 Stage IV Severe Decrease in GFR 15-29 Stage V Kidney Failure <15 CREATININE (test code = CREAT) 0.76 mg/dL 0.55-1.30 N CALCIUM (test code = CA) 8.7 mg/dL 8.2-10.1 N CBC W/AUTO [id number] 06:01:00 Test Item Value Reference Range Interpretation [...] 0-0 N code = NRBC) ACUTE HEPATITIS [id number] 21:48:00 Test Item Value Reference Range Interpretation [...] 2 (test NONREACTIVE NONREACTIVE Done by S Fannectaur code = PUA16JC) 4th Gen HIV Ag/Ab Combo Screen ACUTE HEPATITIS [id number] 21:48:00 Test Item Value Reference Range Interpretation [...] NONREACTIVE NONREACTIVE DONE AT: [facility] = HIV1AB) [address] [address]Done by iSTAR aur 4th Gen HIV Ag/Ab C ombo Screen ACUTE HEPATITIS [id number] 21:46:00 Test Item Value Reference Range Interpretation [...] AB HIV 1 2 (test code = IFA88II) NONREACTIVE ACUTE HEPATITIS [id number] 21:46:00 Test Item Value Reference Range Interpretation [...] (test code = HIV1AB) NONREACTIVE ACUTE HEPATITIS [id number] 21:45:00 Test Item Value Reference Range Interpretation [...] (test code = HIV1AB) NONREACTIVE ACUTE HEPATITIS [id number] 21:44:00 Test Item Value Reference Range Interpretation [...] AB HIV 1 2 (test code = SER15FD) NONREACTIVE ACUTE HEPATITIS [id number] 21:25:00 Test Item Value Reference Range Interpretation [...] (test code = HIV1AB) NONREACTIVE ACUTE HEPATITIS [id number] 21:24:00 Test Item Value Reference Range Interpretation [...] AB HIV 1 2 (test code = OJA69UU) NONREACTIVE COVID 19 Asymptomatic IH [id number] 18:48:00 Test Item Value Reference Range Interpretation Comments COVID 19 Asymptomatic IH AG (test NEGATIVE NEGATIVE code = COVNONPUIAG) CBC W/AUTO [id number] 18:32:00 Test Item Value Reference Range Interpretation [...] % 0-0 N code = NRBC) SED [id number] 18:32:00 Test Item Value Reference Range Interpretation Comments SED RATE (test code = SEDW) 20 mm/hr 0-20 N COMPREHENSIVE METABOLIC [id number] 18:05:00 Test Item Value Reference Range Interpretation [...] RATE (test code = GFR) mL/mi n/1.73 m3Fpwylteir Range:Healthy Adults >90 mL/min/1.73 m2 For Chronic [...] H TOTAL (test code = ALKP) PROTHROMBIN [id number] 17:20:00 Test Item Value Reference Range Interpretation [...] v bal IS PATIENT ON ANTICOAGULANTS ? [facility] been notified if Patient is on Heparin Drip? NOTHROMBOPLASTIN TIME [id number] 17:20:00 Test Item Value Reference Range Interpretation Comments PTT ACTIVATED (test code = APTT) 30.8 secs 24.9-37.0 N IS PATIENT ON ANTICOAGULANTS ? [facility] been notified if Patient is on Heparin Drip? NOCBC W/AUTO [id number] 17:06:00 Test Item Value Reference Range Interpretation [...] % 0-0 N code = NRBC) SED [id number] 17:06:00 Test Item Value Reference Range Interpretation Comments SED RATE (test code = SEDW) mm/hr 0-20 ZJLMILJKLK8851-53-32 18:23:000.1[facility] NkredeqQTYSNYZVJX5594-90-48 18:23:000.6 [facility] JsvaglpFPHIOHINSH7918-99-67 18:23:000.5[facility] 2016-08-10 18:23:007.2[facility] JgojqzyQQTYVQIOCV4759-62-02 18:23:000.4[facility] TgcordvBJYMOHAFKN8360-58-95 18:23:000.2[facility] XuyjynlQIGAJACVVS9441-82-45 18:23:006.6[facility] QqnzsfmJPGNCZIPHU2210-52-77 18:23:0088.0[facility] [place] JNADIGCLII4664-87-56 18:23:004.6[facility] NwkndqkMGBVEPJNMY9954-56-29 18:23:00 10.4[facility] LyylrvcWSOBXWFRSZ8083-45-35 18:23:008.2[facility] 2016-08-10 18:23:004.15[facility] VhwgdqoWGXNGADURY9851-47-71 18:23:0031.4[facility] UdstzrhYGWWVPQOLI4561-78-19 18:23:0080.0[facility] ObrssbjHBPUVCTAWM2347-04-15 18:23:00 Test Item Value Reference Range Interpretation Comments MCH (test code = MCH) 25.1 pg 27.0-31.0 [facility] TfqxhqpYYDPRHDWJN7621-36-42 18:23:0033.2[facility] 2016-08-10 18:23:0019.7[facility] IywhccbNAYZTOTTNS2092-67-72 18:23:007.9[facility] EnivzbxZZGEAXJVUU2081-48-88 18:23:42801Ndtreqli HermannBLOOD BANK RESULTS 2016 11:50:00Negative (02/14/16 6:50 AM)[facility] HermannCHEM PNPXE4475-69-34 11:50:0084[facility] HermannCHEM OZMRA6020-70-79 11:50:0076[facility] HermannCHEM TKKJE4353-13-93 11:50:0016.0[facility]annCHEM GOALN5751-35-65 11:50:008.2 [facility]annCHEM JQEJK0997-30-32 11:50:0026[facility]annCHEM PANEL 2016 11:50:000.79[facility]annCHEM QOEKT5646-70-20 11:50:004.0[facility]annCHEM ALQSX8486-08-47 11:50:0016[facility]annCHEM GXXVI6612-64-77 11:50:40375Imocmoiz HermannCHEM EHAHT5346-65-00 11:50:73432Gcmuohzl [place] HHFBAOKXTJ0744-51-55 11:50:002.9[facility] GngzjxaAYIUWWNYWQ3165-67-97 11:50:003.4 [facility] JwlyssmQBGPPUAQEJ2656-94-30 11:50:001.1[facility] HermannHEMATOLOGY 2016 11:50:002.1[facility] VdmlnjgGAXCWECITW1353-05-48 11:50:001+ *ABN*(02/14/16 6:50 AM)[facility] CeosegtXNNLKFTVOA0508-18-52 11:50:000.1[facility] XtvhsllOQVGGOEGJK2583-00-45 11:50:000.2[facility] SutzbjkSZTSJABLRG7474-67-05 11:50:000.7[facility] UjabicqKGIBOWJLZU6305-58-53 11:50:009.5[facility] [place] UVAZPJZLFR4474-69-18 11:50:0039.6[facility] XksaagxTZEFPPIVOW9967-88-76 11:50:00 47.7[facility] GfonefwKFACBTAXDU6815-38-12 11:50:007.2[facility]annHEMATOLOGY 2016 11:50:28919Nkuzcfyo WljtomySZUXROUQAW9674-69-44 11:50:0022.6[facility] GdnifdyYAZOIGWATO9451-03-52 11:50:0030.2[facility] RcdbmbrJTBPGUVZIQ5344-51-09 11:50:0080.7[facility] QmrfrpxOAHPHELMHZ9204-50-29 11:50:00 Test Item Value Reference Range Interpretation Comments MCH (test code = MCH) 25.3 pg 27.0-31.0 [facility] RjufnetBVFFEAITCD5101-36-11 11:50:0031.3[facility] HermannHEMATOLOGY 2016 11:50:007.2[facility] TnvizqpYUHXLLIPEL3899-08-52 11:50:003.74[facility] FgyywuxLZMEKWQBVE5311-33-33 11:50:009.5[facility] YyzbkgtCENCUNSQW2690-44-89 08:37:0012.0[facility] JlklhbpPLOVWQQNR0081-66-45 08:37:0013[facility] [place] FPLTIXQLR3688-54-11 08:37:002.3[facility] RxoixwkTJUSECUEA2362-60-78 08:37:001.3 [facility] WrkjpusDDMCCCCFF4493-11-54 08:37:0093[facility] HermannCHEMISTRY 2011-08-31 08:37:91401Klopwvhd IrjrpnsWKKHCIWTD8585-31-34 08:37:000.5[facility] DbvgeyvJKEFLHLPN6889-79-52 08:37:74086Ysikfvbq RdqhjznVGXCRWEJU2089-41-72 08:37:73100Sqiommtd HnivbdmDQUKZCTKQ7017-50-26 08:37:000.6[facility] [place] YWZSCJQLQ5372-26-44 08:37:0078[facility] YgaawvgKBMNQUXCW6414-82-07 08:37:008 Memorial LnhceezQOVYQQJUN6235-97-94 08:37:005.4[facility] HermannCHEMISTRY 2011-08-31 08:37:003.1[facility] UnztxptFJGEEYNPM8265-36-63 08:37:004.0[facility] IkgahxdRWJWSMSHC3351-37-21 08:37:008.1[facility] RztyjkcHNSCJRLSW4716-03-62 08:37:70420Ndcwlnlf ZpcwzqbWTBLAPNKY5937-03-78 08:37:0029[facility] [place] BIWGRACVLP3241-93-65 08:37:000.1[facility] CvksfubLOBCOMLJPK7063-25-06 08:37:000.5 [facility] CilsfiaRRJOXQNPFI5169-25-38 08:37:000.8[facility]annHEMATOLOGY 2011-08-31 08:37:000.1[facility] ZmsunuvFPHFSSDQUW5501-67-16 08:37:007.2[facility] GwacbnuOVVJZDWMJP9716-24-05 08:37:0084.2[facility] BpzviknZPDYSOTHUZ5373-97-63 08:37:008.8[facility] PufmbmcLDKIRHTXCY7104-77-34 08:37:000.8[facility] [place] ICRVHROHRC9587-87-94 08:37:006.1[facility] DwphdpeAYWNCMYHYS2665-26-10 08:37:00 30.4[facility] HspknykPXFTNKVNOQ3814-18-59 08:37:0032.7[facility]annHEMATOLOGY 2011-08-31 08:37:0015.9[facility] YkzrcrwFFSZBMOLUM0721-93-06 08:37:00 Test Item Value Reference Range Interpretation Comments MCH (test code = MCH) 28.3 pg 27.0-31.0 N Memorial MxajzhnJQKOORWNLO0762-91-78 08:37:0086.5[facility]annHEMATOLOGY 2011-08-31 08:37:008.7[facility] VdxkzklBCGHHZYJKL0560-81-80 08:37:76111Llhilbxk WodjfwyMAMYLQPGGX8377-89-63 08:37:008.6[facility] JbygduhNISSELOFED0123-91-74 08:37:0010.0[facility] ArjbnssUVKHYKZPFP2595-02-69 08:37:003.52[facility] [place] BLOOD BANK WJADRHX5762-64-42 22:00:00Negative (08/24/2011 17:00:00)[facility] VgcahxkSIBZWBAHX1694-07-00 22:00:0029[facility] YpgrkdbYOAAWAQAS2341-27-56 22:00:12679Zqjhtxuj DxulmchDCLTCSKVF6609-35-56 22:00:70291Gkjonoly [place] ACKHTDIJX6350-82-49 22:00:004.3[facility] EdiahlhLICDNWUVL3571-92-67 22:00:0079 [facility] EilppzzZVADPLOZY7695-58-38 22:00:000.3[facility] HermannCHEMISTRY 2011-08-24 22:00:003.9[facility] UyctrvcIZUHHMBYG8375-45-36 22:00:0039[facility] VgvnqdfARYWLOIQV9819-63-55 22:00:008.7[facility] EflxzvcVIVVDUIHO9855-38-98 22:00:007.5[facility] YksmkpaWVQMFDMVV7253-40-40 22:00:0014[facility] [place] UKYTBKOBH3041-39-65 22:00:0085[facility] LikkigoAOKRKCGSY0354-28-11 22:00:000.9 [facility] EmayubsTNEUZYYSI5936-20-50 22:00:0027[facility]annCHEMISTRY 2011-08-24 22:00:003.6[facility] AteojmxPGGPJACNR5755-29-23 22:00:0012.3[facility] YiefaaeVDUCONOFT7804-81-57 22:00:0016[facility] MzbtqzeZSJKCCABI1245-79-32 22:00:001.1[facility] OodwlmoVXFAUXKBPO3751-80-63 22:00:000.0[facility] Ivnce JALIYWZVYY7232-05-60 22:00:000.5[facility] IiiciliIYLOPZDQZK6701-29-66 22:00:005.2 [facility] UqemfbiABQMZDURXS4566-19-32 22:00:000.7[facility]annHEMATOLOGY 2011-08-24 22:00:0030.8[facility] ZlkgnlqPWKKVYOVTE3611-39-22 22:00:006.1[facility] MygrjmlWSXJRVHQKZ7141-50-28 22:00:000.1[facility] NzksyzjHBRUAOFDGT4062-73-66 22:00:000.5[facility] XhfwvbnIRZIRNYTQW9819-51-86 22:00:002.6[facility] [place] FSBHFPRSYP1700-12-05 22:00:0061.9[facility] ZivzmpkXYVVLRMYCR8819-89-09 22:00:00 Test Item Value Reference Range Interpretation Comments PTT (test code = PTT) 28.5 s 22.9-35.8 N [facility] EdqbncyLCWGNEPSJA4567-90-88 22:00:00 Test Item Value Reference Range Interpretation Comments PT (test code = PT) 12.3 s 12.0-14.7 N [facility] PczbvhwBXDPBXIIQU6993-43-40 22:00:000.91[facility]ann[facility]MATOLOGY 2011-08-24 22:00:0015.9[facility] BopkzrwMAFAJXJUCR8646-28-62 22:00:0033.1[facility] KjhdhpkHZNBQOURDS6870-29-55 22:00:00 Test Item Value Reference Range Interpretation Comments MCH (test code = MCH) 28.1 pg 27.0-31.0 N [facility] GbouvhpTGINRDYSKS9788-65-59 22:00:53725Fjesasfz HermannHEMATOLOGY 2011-08-24 22:00:008.1[facility] IplzrxiARLFTERNUQ1224-34-58 22:00:0012.3[facility] NwcdyqpMFTJETGRLQ4648-84-91 22:00:0037.1[facility] OrvgrljHUWZOELKCT9730-41-00 22:00:008.4[facility] SujolzmRWNJNYVDOB3879-99-88 22:00:004.37[facility] LFHNFIDWTK5921-64-83 22:00:0084.8[facility] IvdubdjRSRHPQVJKE7351-29-05 22:00:00 Negative *NA*(08/24/2011 17:00:00)[facility] KludbzzMYYERJFTVB8320-13-65 21:20:00 Negative mg/dL *NA*(08/24/2011 16:20:00)[facility] NlbrfkbJXDYFGZDBC1569-98-70 21:20:00Negative mg/dL (08/24/2011 16:20:00)[facility] RvygxwtZJXKRFPZTB2993-78-89 21:20:00Negative mg/dL *NA*(08/24/2011 16:20:00)[facility]ann[facility]INALYSIS 2011-08-24 21:20:00Negative (08/24/2011 16:20:00)[facility] 2011-08-24 21:20:00Negative *NA*(08/24/2011 16:20:00)[facility] 2011-08-24 21:20:00Not Indicated *NA*(08/24/2011 16:20:00)[facility] [id number] 21:20:00Clear (08/24/2011 16:20:00)[facility] [id number] 21:20:00Yellow *NA*(08/24/2011 16:20:00)[facility] [id number] 21:20:006.5[facility] [id number] 21:20:00 1.012[facility] [id number] 21:20:00Negative (08/24/2011 16:20:00) [facility] CnnwglbGLVQIKNWNA0530-15-09 21:20:00Negative (08/24/2011 16:20:00) [facility] [place]
--- NOTE | 2020-09-15 12:07 | ER ---
Nurse's Notes [facility] Name: Lucrecia Vargas Age: 60 yrs Sex: Female : 1960 Arrival Date: 09/15/2020 Time: 11:57 Bed 16 Private MD: Diagnosis: Central dislocation of left hip Presentation: 09/15 12:01 Chief complaint: EMS states: L hip dislocation, S/P L hip surgery x 3. Last 1 was ca1 09/01/2020. Dislocation happened last night when she was sitting and while moving she heard her L hip pop. IV 18G RAC initiated. She took her Percocet at 1000 today. Fentanyl 75 mcg given IV. Coronavirus screen: Client denies travel out of the [place] in the last 14 days. At this time, the client does not indicate any symptoms associated with coronavirus-19. Ebola Screen: Patient negative for fever greater than or equal to 101.5 degrees Fahrenheit, and additional compatible Ebola Virus Disease symptoms Patient denies exposure to infectious person. Patient denies travel to an Ebola-affected area in the 21 days before illness onset. No symptoms or risks identified at this time. Initial Sepsis Screen: Does the patient meet any 2 criteria? No. Patient's initial sepsis screen is negative. Does the patient have a suspected source of infection? No. Patient's initial sepsis screen is negative. Risk Assessment: Do you want to hurt yourself or someone else? Patient reports no desire to harm self or others. Onset of symptoms was September 15, 2020. 12:01 Method Of Arrival: EMS: [facility] ca1 12:01 Acuity: ROSARIO 3 ca1 Historical: - Allergies: 12:07 No Known Allergies; ca1 - Home Meds: 12:07 Atenolol Oral [Active]; duloxetine Oral [Active]; hydroxychloroquine Oral [Active]; ca1 leflunomide Oral [Active]; losartan Oral [Active]; Methocarbamol Oral [Active]; Mirtazapine Oral [Active]; Prednisone Oral [Active]; Prilosec Oral [Active]; Vitamin D Oral [Active]; - PMHx: 12:07 acid reflux; Depression; Endometriosis; Hypertension; Rheumatoid Arthritis; Sjogren's ca1 Syndrome; - PSHx: 12:07 LEFT TOTAL HIP; ca1 - Immunization history:: Adult Immunizations up to date, Client reports receiving the 2nd dose of the Covid vaccine, Client reports receiving the 1st dose of the Covid vaccine, Flu vaccine is up to date. - Social history:: Smoking status: Patient denies any tobacco usage or history of. Screenin:11 Abuse screen: Denies threats or abuse. Denies injuries from another. Nutritional ca1 screening: No deficits noted. Tuberculosis screening: No symptoms or risk factors identified. Fall Risk Fall in past 12 months (25 points). Secondary diagnosis (15 points) impaired mobility, IV access (20 points). Total Fairchild Fall Scale indicates High Risk Score (45 or more points). Fall prevention measures have been instituted. Side Rails Up X 2 As available patient and family educated on Fall Prevention Program and Strategies. Assessment: 12:30 General: Appears in no apparent distress. uncomfortable, Behavior is calm, cooperative, jd3 appropriate for age. Pain: Complains of pain in left hip Quality of pain is described as sharp, shooting. Neuro: Level of Consciousness is awake, alert, obeys commands, Oriented to person, place, time, situation. Cardiovascular: Denies chest pain, Capillary refill < 3 seconds Patient's skin is warm and dry. Respiratory: Airway is patent Respiratory effort is even, unlabored, Respiratory pattern is regular, symmetrical. GI: No signs and/or symptoms were reported involving the gastrointestinal system. : No signs and/or symptoms were reported regarding the genitourinary system. EENT: No signs and/or symptoms were reported regarding the EENT system. Derm: Skin is intact, Skin is dry, Skin is normal, Skin temperature is warm. Musculoskeletal: Circulation, motion, and sensation intact. Range of motion: limited in left hip Swelling present in left hip. 13:30 Reassessment: Patient appears in no apparent distress at this time. No changes from jd3 previously documented assessment. Patient and/or family updated on plan of care and expected duration. Pain level reassessed. Patient is alert, oriented x 3, equal unlabored respirations, skin warm/dry/pink. 14:11 Reassessment: Patient appears in no apparent distress at this time. Patient and/or jd3 family updated on plan of care and expected duration. Pain level reassessed. Patient is alert, oriented x 3, equal unlabored respirations, skin warm/dry/pink. report given to [facility] crew for pt transfer. report given to Toby COLE at receiving facility. Vital Signs: 12:01 BP 114 / 85; Pulse 87; Resp 16 S; Temp 98.2(TE); Pulse Ox 96% on R/A; Weight 77.11 kg ca1 (R); Height 5 ft. 7 in. (170.18 cm) (R); Pain 8/10; 13:31 BP 119 / 79; Pulse 83; Resp 17 S; Pulse Ox 98% on R/A; jd3 14:10 BP 117 / 74; Pulse 90; Resp 17 S; Pulse Ox 96% on R/A; jd3 12:01 Body Mass Index 26.63 (77.11 kg, 170.18 cm) ca1 ED Course: 11:57 Patient arrived in ED. am2 11:59 Chris Greer PA is PHCP. jr8 11:59 Stone Miller MD is Attending Physician. jr8 12:01 Arm band placed on right wrist. ca1 12:03 Patient has correct armband on for positive identification. Placed in gown. Bed in low mh5 position. Call light in reach. Side rails up X2. Warm blanket given. Pulse ox on. NIBP on. 12:03 Maintain EMS IV. Dressing intact. Site clean \T\ dry. mh5 12:05 Transfer initiated with [facility]. em1 12:11 Triage completed. ca1 12:22 Transfer accepted by Zina Henry and Dr. Rayna Young. em1 12:25 Chavez Orta, KELSEY is Primary Nurse. jd3 12:37 XRAY Hip LEFT 2 view In Process Unspecified. EDMS 14:13 No provider procedures requiring assistance completed. Patient transferred, IV remains jd3 in place. Administered Medications: 13:28 Drug: Dilaudid (HYDROmorphone) 1 mg Route: IVP; Site: right antecubital; jd3 14:17 Follow up: Response: No adverse reaction; RASS: Alert and Calm (0) jd3 Outcome: 12:06 ER care complete, transfer ordered by . jr8 14:13 Transferred by ground EMS to [facility], Transfer form completed. X-rays jd3 sent w/ patient. 14:13 Condition: stable 14:13 Instructed on the need for transfer, Demonstrated understanding of instructions. 14:17 Patient left the ED. jd3 Signatures: Dispatcher [employer] EDMS Wali Toledo em1 Chris Greer PA PA 8 Ifrah Toledo 5 Marianna Herbert 2 Chavez Orta RN RN jd3 Shazia Owusu RN RN ca1 Corrections: (The following items were deleted from the chart) 12:17 12:01 Chief complaint: EMS states: L hip dislocation, S/P L hip surgery x 3. Last 1 was ca1 09/01/2020. Dislocation happened last night when she was sitting and while moving she heard her L hip pop. ca1 13:31 12:30 Reassessment: Patient appears in no apparent distress at this time. No changes jd3 from previously documented assessment. Patient and/or family updated on plan of care and expected duration. Pain level reassessed. Patient is alert, oriented x 3, equal unlabored respirations, skin warm/dry/pink. jd3
--- NOTE | 2020-09-15 12:07 | EDPHYS ---
Physician Documentation [facility] Name: Lucrecia Vargas Age: 60 yrs Sex: Female : 1960 Arrival Date: 09/15/2020 Time: 11:57 Bed 16 Private MD: ED Physician Stone Miller HPI: 09/15 12:01 This 60 yrs old Female presents to ER via Unassigned with complaints of hip jr8 pain. 12:01 The patient presents with decreased range of motion, pain. The complaints affect the jr8 left hip. Onset: The symptoms/episode began/occurred acutely, last night. Modifying factors: The symptoms are alleviated by nothing. the symptoms are aggravated by movement. Associated signs and symptoms: The patient has no apparent associated signs or symptoms. Severity of symptoms: At their worst the symptoms were moderate, in the emergency department the symptoms are unchanged. The patient has experienced a previous episode. The patient has not recently seen a physician. Patient recently had revision of hip for prosthetic dislocation. Stated that she turned while sitting last night and felt it pop out again. Called her orthopedic this morning and told her to come back to ED so we could transfer to [facility] . Historical: - Allergies: 12:07 No Known Allergies; ca1 - Home Meds: 12:07 Atenolol Oral [Active]; duloxetine Oral [Active]; hydroxychloroquine Oral [Active]; ca1 leflunomide Oral [Active]; losartan Oral [Active]; Methocarbamol Oral [Active]; Mirtazapine Oral [Active]; Prednisone Oral [Active]; Prilosec Oral [Active]; Vitamin D Oral [Active]; - PMHx: 12:07 acid reflux; Depression; Endometriosis; Hypertension; Rheumatoid Arthritis; Sjogren's ca1 Syndrome; - PSHx: 12:07 LEFT TOTAL HIP; ca1 - Immunization history:: Adult Immunizations up to date, Client reports receiving the 2nd dose of the Covid vaccine, Client reports receiving the 1st dose of the Covid vaccine, Flu vaccine is up to date. - Social history:: Smoking status: Patient denies any tobacco usage or history of. ROS: 12:01 Eyes: Negative for injury, pain, redness, and discharge, ENT: Negative for injury, jr8 pain, and discharge, Neck: Negative for injury, pain, and swelling, Cardiovascular: Negative for chest pain, palpitations, and edema, Respiratory: Negative for shortness of breath, cough, wheezing, and pleuritic chest pain, Abdomen/GI: Negative for abdominal pain, nausea, vomiting, diarrhea, and constipation, Back: Negative for injury and pain, Skin: Negative for injury, rash, and discoloration, Neuro: Negative for headache, weakness, numbness, tingling, and seizure. 12:01 MS/extremity: Positive for decreased range of motion, deformity, of the left leg. Exam: 12:01 Constitutional: This is a well developed, well nourished patient who is awake, alert, jr8 and in no acute distress. Cardiovascular: Regular rate and rhythm with a normal S1 and S2. No gallops, murmurs, or rubs. Normal PMI, no JVD. No pulse deficits. Respiratory: Lungs have equal breath sounds bilaterally, clear to auscultation and percussion. No rales, rhonchi or wheezes noted. No increased work of breathing, no retractions or nasal flaring. Abdomen/GI: Soft, non-tender, with normal bowel sounds. No distension or tympany. No guarding or rebound. No evidence of tenderness throughout. Skin: Warm, dry with normal turgor. Normal color with no rashes, no lesions, and no evidence of cellulitis. Neuro: Awake and alert, GCS 15, oriented to person, place, time, and situation. Cranial nerves II-XII grossly intact. Motor strength 5/5 in all extremities. Sensory grossly intact. 12:01 Musculoskeletal/extremity: Extremities: grossly normal except: noted in the left leg: mild shortening with rotation of left leg noted , ROM: Pain with decreased ROM present to left leg, Circulation is intact in all extremities. Pulses: noted to be 2+ in the right radial artery, right dorsalis pedis artery, left radial artery and left dorsalis pedis artery, Sensation intact. Vital Signs: 12:01 BP 114 / 85; Pulse 87; Resp 16 S; Temp 98.2(TE); Pulse Ox 96% on R/A; Weight 77.11 kg ca1 (R); Height 5 ft. 7 in. (170.18 cm) (R); Pain 8/10; 13:31 BP 119 / 79; Pulse 83; Resp 17 S; Pulse Ox 98% on R/A; jd3 14:10 BP 117 / 74; Pulse 90; Resp 17 S; Pulse Ox 96% on R/A; jd3 12:01 Body Mass Index 26.63 (77.11 kg, 170.18 cm) ca1 MDM: 11:59 Patient medically screened. jr8 12:01 Data reviewed: vital signs, nurses notes, lab test result(s), radiologic studies, plain jr8 films. Data interpreted: Pulse oximetry: on room air is 100 %. Interpretation: normal. Counseling: I had a detailed discussion with the patient and/or guardian regarding: the historical points, exam findings, and any diagnostic results supporting the discharge/admit diagnosis, lab results, radiology results, the need to transfer to another facility, [facility] does not immediately have the required specialist. 09/15 12:01 Order name: CBC with Diff; Complete Time: 13:8 09/15 12:01 Order name: Basic Metabolic Panel; Complete Time: 14: jr8 09/15 12:01 Order name: Protime (+inr); Complete Time: 13: jr8 09/15 12:01 Order name: Ptt, Activated; Complete Time: 13:08 jr8 09/15 12:01 Order name: XRAY Hip LEFT 2 view; Complete Time: 12:50 jr8 Administered Medications: 13:28 Drug: Dilaudid (HYDROmorphone) 1 mg Route: IVP; Site: right antecubital; jd3 14:17 Follow up: Response: No adverse reaction; RASS: Alert and Calm (0) jd3 Disposition: 09/15/20 12:06 Transfer ordered to [facility]. Diagnosis is Central dislocation of left hip. - Reason for transfer: Higher level of care. - Accepting physician is Dr. Young. - Condition is Stable. - Problem is new. - Symptoms have improved. Addendum: 09/17/2020 07:14 Co-signature as Attending Physician, Stone Miller MD I agree with the assessment and k dr plan of care. Signatures: Dispatcher [employer] EDMN Stone Miller MD MD [facility] Chris Greer PA PA jr8 Chavez Orta RN RN jd3 Shazia Owusu RN RN ca1 Corrections: (The following items were deleted from the chart) 09/15 14:17 12:06 09/15/2020 12:06 Transfer ordered to [facility]. Diagnosis is Central jd3 dislocation of left hip. Reason for transfer: Higher level of care. Accepting physician is Dr. Young. Condition is Stable. Problem is new. Symptoms have improved. jr8
--- NOTE | 2020-09-15 12:49 | RAD REPORT ---
EXAM DESCRIPTION: RAD - Hip Left 2 View - 09/15/2020 12:37 pm CLINICAL HISTORY: DEFORMITY Pain and swelling FINDINGS: Left total hip arthroplasty is noted with total dislocation present. Femoral component lie s superior to the acetabular cup. Moderate soft tissue swelling along the lateral aspect of the hip.
[2020-09-15 12:54] LABS: Absolute Lymphocytes (CBC) 1.6 K/uL (0.7-4.9); Basophils % 0.7 % (0-1.3); Hematocrit 28.9 % (36.0-45.0); Lymphocytes % 14.7 % (15.3-44.8); MPV 7.1 fL (7.6-11.3); RBC Red Blood Cell Count 3.14 M/uL (3.86-4.86)
[2020-09-15 13:04] LABS: Protime INR 0.99
[2020-09-15 13:22] LABS: Potassium 3.4 mmol/L (3.5-5.1)
[2020-09-15] MEDS ORDERED: HYDROMORPHONE HCL 1 MG/ML INJ ONE (13:41)
[2020-09-16 01:03] VITALS: TEMP 98.2
[2020-09-16 01:14] VITALS: BP 117/74; O2SAT 96
== END 2020-09-15 14:17 | disposition short-term general hospital (02) ==
LOC: ER 11:56
DX: S73.045 Central dislocation of left hip (principal); I10 Essential (primary) hypertension; F32.9 Major depressive disorder, single episode, unspecified; Z96.642 Presence of left artificial hip joint
CPT/HCPCS: 85025; 80048; 36415; 85610; 85730; 73502; 96374; 99285; J1170

== ENCOUNTER 2021-05-24 12:10 | Emergency (ER) | payer OTHER ==
--- OUTSIDE RECORDS SUMMARY | 2021-05-24 12:18 | XMS REPORT | Continuity of Care Document ---
:1960 Author Organization [facility] t Address [address] [place] [address] Care Team Providers Name Role Phone Arlin Mondragon Attending Clinician Unavailable DALE Attending Clinician Unavailable VASILE Attending Clinician Unavailable DO OUMOU LOPEZ Attending Clinician Unavailable EMIR Attending Clinician Unavailable LEV Attending Clinician Unavailable NIKHIL Attending Clinician Unavailable MELIDA Attending Clinician Unavailable MD MELIDA Attending Clinician Unavailable MD Luiz GRAHAM Attending Clinician Unavailable CÉSAR Attending Clinician Unavailable MD CÉSAR Attending Clinician Unavailable PEPITO Attending Clinician Unavailable MD GABY BEYER Attending Clinician Unavailable Efrain Nguyen Attending Clinician Unavailable Morris PAC, S Attending Clinician Doctor Unassigned, Name Attending Clinician Unavailable JOSE Attending Clinician Unavailable JESSICA PAZ Attending Clinician Unavailable Arlin Mondragon Admitting Clinician Unavailable Physician, Primary or Family Admitting Clinician Unavailsánchez LOPEZ Admitting Clinician Unavailable DO OUMOU LOPEZ Admitting Clinician Unavailable GLADYS Admitting Clinician Unavailable MELIDA Admitting Clinician Unavailable MD MELIDA Admitting Clinician Unavailable MD Luiz GRAHAM Admitting Clinician Unavailable CÉSAR Admitting Clinician Unavailable MD CÉSAR Admitting Clinician Unavailable SARAH Admitting Clinician Unavailable PEPITO Admitting Clinician Unavailable MD GABY BEYER Admitting Clinician Unavailable JOSHUA Admitting Clinician Unavailable MD Marguerite LEWIS Admitting Clinician Unavailable LEV Admitting Clinician Unavailable JESSICA PAZ Admitting Clinician Unavailable Payers Payer Name Policy Type Policy Number Effective Date Expiration Date Eleno CANTU O [id number] 2017 00:00:00 Problems Condition Condition Condition Status Onset Resolution Last Treating Co mments Source Name Details Category Date Date Treatment Clinician Date LUMBAR Diagnosis Active 2016-08-14 Mem oria HERNIATED 2- 07:03:00 l DISC LUMBAR 00:00: Vince HERNIATED 00 DISC Active 08/06/2016 [facility] M54.16 - Diagnosis Active 2015-062016-05-19 M emoria "RADICULOP 0-24 16:22:00 l ATHY, M54.16 - 00:01: Tomy n LUMBAR "RADICULOP 00 REGION" ATHY, LUMBAR REGION" Active 04/02/2016 [facility] [place] HERNIATED Diagnosis Active 2016-08-28 Memoria DISCS 8-24 18:04:00 l 00:00: [place] HERNIATED 00 DISCS Active 02/01/2016 [facility] M25.561 - Diagnosis Active 2014-062015-05-17 Memoria PAIN IN 1-20 12:44:00 l RIGHT KNEE M25.561 00:01: Her felder - PAIN IN 00 RIGHT KNEE Active 04/29/2015 [facility] [place] GERD,[id number] Diagnosis Active 2012-12-02 Memoria 6-20 10:06:00 l 00:00: Vince GERD,[id number] 00 Active 11/27/2012 [facility] GASTROGAST Diagnosis Active 2011-08-30 Memoria DWIGHT 3-14 15:24:00 l FISTULA 00:00: [place] GASTROGAST 00 DWIGHT FISTULA Active 08/22/2011 [facility] Anxiety Problem Active 2017-11-26 Teofilo osiris (finding) - 13:22:41 l Anxiety 00:00: Vince (finding) 00 Active 06/10/2011 Problem 11/26/2017 [facility] her [facility], RACHELLE Clarke, [facility], [facility] [place] Anxiety Problem Active 2012-12-04 Teofilo osiris 06-10 20:55:13 l Anxiety 00:00: [place] 00 Active 06/10/2011 Problem 12/04/2012 RACHELLE Clarke,[facility] GERD Diagnosis Active 2010-062011-06-12 Mem oria 530.11 09:55:00 l GERD 00:00: [place] 530.11 00 Active 06/07/2011 [facility] Scoliosis, Problem 2017-11-25 M emoria unspecifie 14:11:46 l d [place] Scoliosis, unspecifie d 11/25/2017 [facility] Low back Problem 2017-11-25 Mem oria pain 14:11:46 l Low back Tomy n pain 8 [facility] [place] Radiculopa Problem 2017-11-25 M emoria thy, 14:11:46 l lumbar [place] region Radiculopa thy, lumbar region 11/25/2017 R[facility]LE [place] Other Problem 2017-11-25 Memor ia specified 14:11:46 l disorders Other Tomy n of bone specified density disorders and of bone structure, density other site and structure, other site [facility] [place] Ankylosing Problem Resolve 2017-11-26 Memoria spondyliti d 13:22:41 l s Vince (disorder) Ankylosing spondyliti s (disorder) Resolved Problem 11/26/2017 Medical Group,[facility] her Neuro,[facility], RACHELLE Clarke,[facility], [facility] Resolve 2017-11-26 Memoria sis d 13:22:41 l (disorder) Tomy n Endometrio sis (disorder) Resolved Problem 11/26/2017 Medical Group,[facility] her Neuro,[facility], RACHELLE Clarke,[facility], [facility] [place] Ankylosing Problem Resolve 2012-12-04 Memoria spondyliti d 20:55:13 l s [place] Ankylosing spondyliti s Resolved Problem 12/04/2012 [facility] Endometrio Problem Resolve 2012-12-04 Memoria sis d 20:55:13 l [place] Endometrio sis Resolved Problem 12/04/2012 [facility] Abdominal Problem Active 2017-11-26 Me moria pain 13:22:41 l (finding) Vince Abdominal pain (finding) Active Problem 11/26/2017 [facility] Group,[facility] her Neuro,[facility], RACEHLLE Clarke,[facility], [facility] [place] Depressive Problem Active 2017-11-26 M emoria disorder 13:22:41 l (disorder) Tomy n Depressive disorder (disorder) Active Problem 11/26/2017 [facility] her Neuro,[facility], [facility] [place], [facility], [facility] [place] History of Problem Active 2017-11-26 M emoria - 13:22:41 l arthrodesi History Her felder s of - (context-d arthrodesi ependent s category) (context-d ependent category) Active Problem 11/26/2017 [facility] her Neuro,[facility], [facility] [place], [facility] [place] Hypertensi Problem Active 2017-11-26 M emoria ve 13:22:41 l disorder, [place] systemic Hypertensi arterial ve (disorder) disorder, systemic arterial (disorder) Active Problem 11/26/2017 [facility] her Neuro,[facility], [facility] [place],[facility], [facility] [place] Pain Problem Active 2017-11-26 Memor ia (finding) 13:22:41 l Pain [place] (finding) Active Problem 11/26/2017 [facility] her Neuro,[facility], [facility] [place],[facility], [facility] [place] Prolapsed Problem Active 2017-11-26 Me moria lumbar 13:22:41 l interverte Tomy n bral disc Prolapsed (disorder) lumbar interverte bral disc (disorder) Active Problem 11/26/2017 [facility] her Neuro,[facility], [facility] Vince, [facility], [facility] [place] Rectal Problem Active 2017-11-26 Memor ia hemorrhage 13:22:41 l (disorder) Rectal Herm cielo hemorrhage (disorder) Active Problem 11/26/2017 [facility] her Neuro,[facility], OP[facility] [place], [facility], [facility] [place] Reflux Problem Active 2017-11-26 Memor ia (finding) 13:22:41 l Reflux [place] (finding) Active Problem 11/26/2017 [facility] her Neuro,[facility], [facility] [place],[facility], [facility] [place] Rheumatoid Problem Active 2017-11-26 M emoria arthritis 13:22:41 l (disorder) Tomy n Rheumatoid arthritis (disorder) Active Problem 11/26/2017 Medical Group,Misc her Neuro,[facility], RACHELLE Clarke,[facility], OPIShannon [place] Reflux Problem Active 2012-12-04 Memor ia 20:55:13 l Reflux Vince Active Problem 12/04/2012 [facility] Abdominal Problem Active 2012-12-04 Me moria pain 20:55:13 l [place] Abdominal pain Active Problem 12/04/2012 [facility] Depression Problem Active 2012-12-04 M emoria 20:55:13 l [place] Depression Active Problem 12/04/2012 [facility] Pain Problem Active 2012-12-04 Memor ia 20:55:13 l Pain Vince Active Problem 12/04/2012 RACHELLE Clarke,[facility] Rectal Problem Active 2012-12-04 Memor ia bleeding 20:55:13 l Rectal [place] bleeding Active Problem 12/04/2012 [facility] Rheumatoid Problem Active 2012-12-04 M emoria arthritis 20:55:13 l [place] Rheumatoid arthritis Active Problem 12/04/2012 [facility] ADMINISTRT Diagnosis Active 2011-08-30 Memoria VE ENCOUNT 15:24:00 l NOS [place] ADMINISTRT VE ENCOUNT NOS Active [facility] 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 Dolores 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 [facility] History of Past Illness Condition Condition Condition Status Onset Resolution Last Treating Co mments Source Name Details Category Date Date Treatment Clinician Date Sacrococcy Problem 2017-2017-11-25 2017-11-25 Memoria geal 3-17 14:11:46 14:11:46 l disorders, 04:39: Tomy n not Sacrococcy 49 elsewhere geal classified disorders, not elsewhere classified 08/24/2017 11/25/2017 RACHELLE [place] Allergies, Adverse Reactions, Alerts Allergy Allergy Status Severity Reaction(s) Onset Inactive Treating Comm ents Source Name Type Date Date Clinician No Known DA Active [facility] All[facility]ie 00:00: Sahu s 00 [facility] No Known DA Active [facility] 5-26 Clear Allergie 00:00: Sahu s 00 [facility] No Known DA Active [facility] 00 [facility] No Known DA Active [facility] 5-[facility] 00:[facility]: [facility] 00 [facility] No Known DA Active [facility] 6-15 [place] [facility] NO KNOWN Drug Active Univers ALLERGIE Class ity of [facility] Social History Social Habit Start Date Stop Date Quantity Comments Source Social History 2017-04-29 2017-04-29 [facility] shruti 16:25:18 16:25:18 Smoking Status Start Date Stop Date Source Social History [facility] Medications Ordered Filled Start Stop Current Ordering [...] #3] pregabalin 2016-06 Yes 2 caps, Teofilo osiirs 50 MG Oral 2-20 PO, BID, # l Capsule 20:01: 120 Vince [Lyrica] 53 caplet, 2 Refill(s), called to pharmacy duloxetine 2016-06 Yes 30 mg = 1 Me moria 30 MG 2-20 cap, PO, l Enteric 20:01: Daily, # Tomy n Coated 00 30 cap, 1 Capsule Refill(s), [Cymbalta] Pharmacy: [facility] [id number] Acetaminoph 2016-06 Yes 1 tab, PO, Memoria en 325 MG / 1-20 Q6H, PRN l Hydrocodone 16:26: for pain, H [place] Bitartrate 00 # 24 tab, 10 MG Oral 0 Tablet Refill(s) [[place] 10/325] Ondansetron No Notes: Teofilo osiris - (Same as: l 18:29: Zofran) MEDICATION WASTE Product Size: 4 mg Product Wasted: ___ mg Oxycodone No Notes: Memori a - (Same as: l 18:29: Roxicodone ) Labetalol No 10 mg, 2 Teofilo osiris 08-14 mL, Route: l 18:29: IVP, Drug form: INJ, Q5Min, Dosing Weight 77.273, kg, PRN Elevated BP, Start date: 08/14/16 12:29:00 TIMBER SKIDDER, Duration: 5 doses or times, Stop date: Limited # of times Naloxone No Notes: Memoria 3-07 Same as l 18:29: Narcan Flumazenil No Notes: Memor ia 08-14 (Same as: l 18:29: Romazicon) Hydromorpho No Notes: Teofilo osiris ne 08-14 Same as: l 18:29: Dilaudid Acetaminoph Yes 1 tab, PO, Memoria en 325 MG / 3-07 Q6H, 0 l Hydrocodone 13:50: Refill(s) H [place] Bitartrate 00 10 MG Oral Tablet [[place] 10/325] Methocarbam Yes 500 mg = 1 Memoria ol 500 MG 3-07 tab, PO, l Oral Tablet 12:19: QID, PRN Mohamud paez [Robaxin] 00 muscle pain, X 14 day, # 56 tab, 0 Refill(s) Famotidine Yes 20 mg = 1 Me moria 20 MG Oral 3-07 tab, PO, l Tablet 12:19: BID, # 60 Tomy n [Pepcid] 00 tab, 0 Refill(s) { Yes See Memoria (Methylpred 3-07 Instructio l nisolone 4 12:19: ns, PO, [...] NOT capsular SHAKE) antigen before diphtheria administra [id number] tion. protein (Same as: conjugate Prevnar vaccine / 13) Streptococc us pneumoniae serotype 14 capsular antigen diphtheria [id number] protein conjugate vaccine / Streptococc us pneumoniae serotype 18C capsular antigen d Methocarbam Yes 1,000 mg = Memoria ol 500 MG 02-14 2 tab, PO, l Oral Tablet 12:06: QID, X 10 H ermann [Robaxin] 00 day, # 80 tab, 0 Refill(s) Famotidine Yes 20 mg = 1 Me moria 20 MG Oral 07 tab, PO, l Tablet 12:06: BID, # 60 Tomy n [Pepcid] 00 tab, 0 Refill(s) { Yes See Memoria (Methylpred 9-07 Instructio l nisolone 4 12:06: ns, PO, [...] a 02-13 (Same As: l 20:00: Ancef, [place] 00 Kefzol) MEDICATION WASTE Product Size: 1000 mg Product Wasted: ___ mg Dexamethaso No Notes: Teofilo osiris ne 02-13 Concentrat l 17:00: ion: [place] 00 4mg/ml pantoprazol No Notes: Teofilo osiris e 02-13 Tablet l 15:05: should not Vince 00 be chewed or crushed. (Same as: Protonix) Losartan No Notes: Memoria 02-13 (Same as: l 15:05: Cozaar) Vince 00 Labetalol No 10 mg, Memori a 02-13 Route: l 14:15: IVP, [place] 00 Q5Min, Dosing Weight 79.545, kg, PRN [...] 02-13 (Same as: l 14:00: Cymbalta) Vince (Do Not Crush) Robaxin No Notes: Memoria 02-13 (Same l 14:00: as:Robaxin [place] 00 ) Famotidine No Notes: Memor ia [...] ia 02-13 (Same as: l 13:33: Romazicon) [place] Ondansetron No Notes: Teofilo osiris 02-13 (Same as: l 13:33: Zofran) [place] MEDICATION WASTE Product Size: 4 mg Product Wasted: ___ mg Hydromorpho No Notes: Teofilo osiris ne 02-13 Same as: l 13:33: Dilaudid [place] 00 Hydralazine No Notes: Teofilo osiris 02-13 (Same as: l 13:33: Apresoline [place] 00 ) Push over 5 minutes Regular No 60 Memoria Insulin, 02-13 units) l Human 100 13:13: WASTE: F/P [...] 10 MG Oral hen. Tablet (Same as: [[place] 10/325] 325/10) phenol 5 No Notes: Memoria MG/ML 02-13 Chlorasept l Mucosal 13:13: ic [place] Tomy n [place] 00 (Same as: Chlorasept ic, Sore Throat [place]) WASTE: F/P - Black; E - Municipal Trash [employer] Ondansetron No Notes: Teofilo osiris 02-13 (Same as: l 13:13: Zofran) [place] 00 MEDICATION WASTE Product Size: 4 mg Product Wasted: ___ mg Morphine No Notes: Memoria 02-13 (Same l 13:13: as:MORPhin [place] 00 e Sulfate) Sodium No 1,000 mL, Memori a Chloride 02-13 Rate: 50 l 0.154 13:13: ml/hr, [place] MEQ/ML 00 Infuse Injectable over: 20 Solution [...] a 02-12 Same as: l 04:00: Ancef [place] 00 Celebrex 50 Yes 50 mg, 1 Me moria mg oral 6-25 cap, PO, l capsule 16:16: BID, 60 [place] 49 cap, Substituti on Allowed, CAP Cymbalta 60 Yes 60 mg, 1 Me moria mg oral 6-25 cap, PO, l delayed 16:16: Daily, [place] release 21 Substituti capsule on Allowed methotrexat [...] 3-24 [place] tab, l 02:00: Route: PO, [place] 00 Drug form: TAB, Bedtime, Start date: 08/31/11 21:00:00, Duration: 30 day, Stop date: 09/29/11 21:00:00 Prozac No Ketan 20 mg, 1 Mem oria 3-23 [place] cap, l 17:38: Route: PO, [place] 00 Drug form: CAP, QAM, Start date: 08/31/11 12:38:00, Duration: 30 day, Stop date: 09/30/11 9:00:00 ketorolac No Ketan 30 mg, 1 Memoria 30 mg/mL 3-23 [place] mL, Route: l injectable 17:00: IVP, Drug He rm solution 00 form: INJ, Q6H, Start date: [...] 30 day, Stop date: 09/30/11 11:00:00 Lactated 2011-0 No Ketan 1,000 mL, Memoria Ringers 3-23 [place] Rate: 80 l Injection 16:01: ml/hr, Tomy n IV 1,000 mL 00 Infuse over: 12.5 hr, Route: IV, Dosing Weight 80.256 kg, Total Volume: 1,000, Start date: 08/31/11 11:01:00, Duration: 30 day, Stop date: 09/30/11 11:00:00 heparin No Ketan 5,000 Memor ia 3-23 [place] unit, 1 l 03:00: mL, Route: [place] 00 SUB-Q, Drug form: INJ, ONCE, Start [...] 2 day, Stop date: 09/01/11 10:00:00 Tylenol No Ketan 650 mg, 1 M emoria 3-22 [place] supp, l 21:50: Route: AR, [place] Drug form: SUPP, Q4H, PRN Fever, Start date: 08/30/11 16:50:00, Duration: 30 day, Stop date: 09/29/11 16:49:00 Phenergan No Ketan 25 mg, 1 Memoria 3-22 [place] mL, Route: l 21:49: IM, Drug form: INJ, Q4H, PRN Nausea, Start date: 08/30/11 16:49:00, Duration: 30 day, Stop date: 09/29/11 16:48:00 Lactated No Ketan 1,000 mL, Memoria Ringers 3-22 [place] Rate: 125 l Injection 21:49: ml/hr, Tomy n IV 1,000 mL 00 Infuse over: 8 hr, Route: IV, Dosing Weight 80.256 kg, Total Volume: 1,000, Start date: 08/30/11 16:49:00, Duration: 1 day, Stop date: 08/31/11 16:48:00 morphine No Bassem D 2 mg, 1 Mem oria Sulfate 3-22 [place] mL, Route: l 18:46: IVP, Drug form: INJ, ONCE, Start date: 08/30/11 13:46:00, Stop date: 08/30/11 13:46:00 Phenergan No Bassem D 6.25 mg, M emoria 3- [place] Route: l 18:33: IVPB, [place] 00 ONCE, Start date: 08/30/11 13:33:00, Stop date: 08/30/11 13:33:00 Phenergan No Ketan 12.5 mg, Memoria 3-22 [place] 0.5 mL, l 17:52: Route: IVPB, Q6H, PRN Nausea & Vomiting, Start date: 08/30/11 12:52:00, Duration: 30 day, Stop date: 09/29/11 12:51:00 Zofran No Ketan 4 mg, 1 Teofilo osiris 3-22 [place] tab, l 17:51: Route: PO, Drug form: TAB, Q8H, PRN Nausea & Vomiting, Start date: 08/30/11 12:51:00, Duration: 30 day, Stop date: 09/29/11 12:50:00 naloxone No Ketan 0.2 mg, Me moria 3-22 [place] 0.5 mL, l 17:50: Route: IVP, Drug form: INJ, Q5Min, PRN Narcotic Reversal, Start date: 08/30/11 12:50:00, Duration: 30 day, Stop date: 09/29/11 12:49:00 morphine No Ketan IV, Start Memoria Sulfate 30 3-22 [place] date: l mg 17:49: 08/30/11 [place] 00 12:49:00, Duration: 30, 30 ml heparin No Ketan 5,000 Memor ia 3-22 [place] unit, l 14:34: Route: Vince 00 SUB-Q, ONCE, Start date: 08/30/11 9:34:00, Stop date: 08/30/11 9:34:00 Invanz 2011-0 No Ketan 1 gm, Memori a 08-29 [place] Route: l 11:30: IVPB, PRE Vince 00 OP, Start date: 08/30/11 6:30:00, Stop date: 08/30/11 17:00:00 chlorhexidi 2011- No Ketan 15 mL, Memoria ne topical 08-29 [place] Route: l 0.12% 11:30: S&SPIT, Vince liquid 00 PRE OP, Drug form: LIQ, Start date: 08/30/11 6:30:00, Stop date: 08/30/11 17:00:00 Immunizations Ordered Immunization Filled Immunization Date Status Commen ts Source Name Name pneumococcal 2016-02-15 Completed [facility] 13-valent vaccine 15:38:00 Vince pneumococcal 2016-02-15 Completed [facility] 13-valent vaccine 15:38:00 [place] Vital Signs Vital Name Observation Time Observation Value Comments Source BMI Calculated 2017-08-20 20:22:00 Memori al [place] Weight 2017-08-20 20:22:00 [facility] [place] Height 2017-08-20 20:22:00 172.72 cm [facility] [place] Heart Rate 2017-08-20 20:22:00 [facility] [place] Temperature Oral (F) 2017-08-20 20:22:00 97.7 F [facility] [place] Systolic (mm Hg) 2017-08-20 20:22:00 Teofilo rial [place] Diastolic (mm Hg) 2017-08-20 20:22:00 Mem orial [place] Height 2017-07-09 20:53:00 172.72 cm Memorial [place] BMI Calculated 2017-07-09 20:53:00 Memori al [place] Weight 2017-07-09 20:53:00 [facility] [place] Heart Rate 2017-07-09 20:53:00 [facility] [place] Systolic (mm Hg) 2017-07-09 20:53:00 Teofilo rial [place] Diastolic (mm Hg) 2017-07-09 20:53:00 Mem orial [place] BMI Calculated 2017-06-06 13:00:00 Memori al [place] Weight 2017-06-06 13:00:00 [facility] [place] Height 2017-06-06 13:00:00 172.72 cm Memorial [place] Heart Rate 2017-06-06 13:00:00 [facility] [place] Temperature Oral (F) 2017-06-06 13:00:00 98.1 F [facility] [place] Systolic (mm Hg) 2017-06-06 13:00:00 Teofilo rial [place] Diastolic (mm Hg) 2017-06-06 13:00:00 Mem orial [place] BMI Calculated 2017-05-29 19:33:00 Memori al [place] Weight 2017-05-29 19:33:00 [facility] [place] Heart Rate 2017-05-29 19:33:00 [facility] [place] Systolic (mm Hg) 2017-05-29 19:33:00 Teofilo rial [place] Diastolic (mm Hg) 2017-05-29 19:33:00 Mem orial [place] Height 2017-05-29 19:33:00 172.72 cm Memorial [place] Height 2017-05-20 20:39:00 172.72 cm [facility] [place] Systolic (mm Hg) 2017-05-20 20:39:00 Teofilo rial [place] Diastolic (mm Hg) 2017-05-20 20:39:00 Mem orial [place] Heart Rate 2017-05-20 20:39:00 Memorial Vince BMI Calculated 2017-04-29 16:18:00 Memori al [place] Height 2017-04-29 16:18:00 172.72 cm [facility] [place] Weight 2017-04-29 16:18:00 [facility] [place] Systolic (mm Hg) 2017-04-29 16:18:00 Teofilo rial [place] Diastolic (mm Hg) 2017-04-29 16:18:00 Mem orial [place] Temperature Oral (F) 2017-04-29 16:18:00 98.2 F Memorial Vince BMI Calculated 2017-04-26 20:56:00 Memori al [place] Weight 2017-04-26 20:56:00 [facility] [place] Height 2017-04-26 20:56:00 173.99 cm [facility] [place] Temperature Oral (F) 2017-04-26 20:56:00 98.5 F [facility] [place] Heart Rate 2017-04-26 20:56:00 [facility] [place] Systolic (mm Hg) 2017-04-26 20:56:00 Teofilo rial [place] Diastolic (mm Hg) 2017-04-26 20:56:00 Mem orial [place] Respitory Rate 2016-08-14 19:00:00 Memori al Vince Systolic (mm Hg) 2016-08-14 19:00:00 Teofilo rial [place] Diastolic (mm Hg) 2016-08-14 19:00:00 Mem orial [place] Systolic (mm Hg) 2016-08-14 18:45:00 Teofilo rial [place] Diastolic (mm Hg) 2016-08-14 18:45:00 Mem orial [place] Respitory Rate 2016-08-14 18:45:00 Memori al [place] Systolic (mm Hg) 2016-08-14 18:30:00 Teofilo rial [place] Diastolic (mm Hg) 2016-08-14 18:30:00 Mem orial Vince Respitory Rate 2016-08-14 18:30:00 Memori al [place] Heart Rate 2016-08-14 13:57:00 Memorial [place] Height 2016-08-14 13:54:00 172.72 cm [facility] [place] BMI Calculated 2016-08-14 13:54:00 Memori al [place] Weight 2016-08-14 13:54:00 Memorial Vince BMI Calculated 2016-08-10 21:13:00 Memori al [place] Weight 2016-08-10 21:13:00 [facility] [place] Height 2016-08-10 21:13:00 172.72 cm Memorial Vince Temperature Oral (F) 2016-02-15 13:08:00 98.1 F [facility] [place] Systolic (mm Hg) 2016-02-15 13:08:00 Teofilo rial [place] Diastolic (mm Hg) 2016-02-15 13:08:00 Mem orial [place] Heart Rate 2016-02-15 13:08:00 [facility] [place] Respitory Rate 2016-02-15 13:08:00 Memori al [place] Systolic (mm Hg) 2016-02-15 09:06:00 Teofilo rial [place] Diastolic (mm Hg) 2016-02-15 09:06:00 Mem orial [place] Respitory Rate 2016-02-15 09:06:00 Memori al [place] Heart Rate 2016-02-15 09:06:00 [facility] [place] Temperature Oral (F) 2016-02-15 09:06:00 98.1 F [facility] [place] Temperature Oral (F) 2016-02-15 04:43:00 98.2 F [facility] [place] Systolic (mm Hg) 2016-02-15 04:43:00 Teofilo rial [place] Diastolic (mm Hg) 2016-02-15 04:43:00 Mem orial Vince Respitory Rate 2016-02-15 04:43:00 Memori al [place] Heart Rate 2016-02-15 04:43:00 [facility] [place] Height 2016 11:41:00 172.72 cm [facility] [place] Weight 2016 11:41:00 [facility] [place] BMI Calculated 2016 11:41:00 Memori al [place] Height 2016-02-09 15:30:00 172.72 cm [facility] [place] BMI Calculated 2016-02-09 15:30:00 Memori al [place] Weight 2016-02-09 15:30:00 [facility] [place] Height 2012-12-02 15:57:00 172.72 cm [facility] [place] Weight 2012-12-02 15:57:00 [facility] [place] Temperature Oral (F) 2011-09-01 00:10:00 98.9 F [facility] [place] Systolic (mm Hg) 2011-09-01 00:10:00 Teofilo rial [place] Heart Rate 2011-09-01 00:10:00 [facility] [place] Respitory Rate 2011-09-01 00:10:00 Memori al [place] Diastolic (mm Hg) 2011-09-01 00:10:00 Mem orial [place] Diastolic (mm Hg) 2011-08-31 20:00:00 Mem orial [place] Systolic (mm Hg) 2011-08-31 20:00:00 Teofilo rial [place] Respitory Rate 2011-08-31 20:00:00 Memori al [place] Temperature Oral (F) 2011-08-31 20:00:00 98.7 F [facility] [place] Heart Rate 2011-08-31 20:00:00 [facility] [place] Diastolic (mm Hg) 2011-08-31 16:40:00 Mem orial [place] Systolic (mm Hg) 2011-08-31 16:40:00 Teofilo rial [place] Respitory Rate 2011-08-31 16:40:00 Memori al [place] Heart Rate 2011-08-31 16:40:00 [facility] [place] Temperature Oral (F) 2011-08-31 16:40:00 98.8 F [facility] [place] Weight 2011-08-24 21:17:00 [facility] [place] Height 2011-08-24 21:17:00 175.26 cm [facility] Weight 2011-06-12 16:09:00 [facility] Height 2011-06-12 16:09:00 175.26 cm [facility] Procedures Procedure Date / Time Performing Clinician Source Performed Injection(s), anesthetic 2017-07-18 21:26:00 [facility] orial Vince agent and/or steroid, transforaminal epidural, with imaging guidance (fluoroscopy or CT); lumbar or sacral, single level Epidural steroid 2017-07-09 06:00:00 [facility] rmann injection<sup>1</sup> Epidural steroid 2017-05-21 06:00:00 [facility] rmann injection<sup>2</sup> Microdiscectomy 2016-08-14 06:00:00 [facility] Her felder Cervical discectomy 2016 05:00:00 [facility] Miscellaneous 2011-08-30 05:00:00 [facility] Her felder operations<sup>5</sup> Miscellaneous operations 2011-08-30 05:00:00 [facility] orial Vince <sup>3</sup> Arthroscopy of knee [facility] Hysterectomy [facility] Vince Jah-en-y gastric [facility] nn bypass<sup>6</sup> Arthroscopy of knee [facility] Hysterectomy [facility] Jah-en-y gastric bypass [facility] radha Elmore <sup>4</sup> Encounters Start End Encounter Admission Attending Care Care Encounter Source Date/Time Date/Time Type Type Clinicians Facility Department ID 2020-11-15 Inpatient EL RICHAR MondragonTO LABO [id number] [facility] 14:00:00 [place] 2020-11-10 Inpatient EL Alanna HCATO ADMI [id number] [facility] 14:00:00 Ug[place] 99506 [facility] 2020-11-03 Inpatient Ihcordell HCATO HCATO [id number] [facility] 13:00:00 Ugonna 67059 [facility] 2021-05-23 2021-05-23 Outpatient DALE [facility] [id number] [place] [address] 00:00:00 00:00:00 KAREN saunders 2021-05-22 2021-05-22 Outpatient [facility] [id number] [place] 00:00:00 00:00:[address] 2021-05-22 2021-05-22 Outpatient [facility] [id number] [place] 00:00:00 00:00:[address] 2021-05-10 2021-05-15 Inpatient BURNETTE, H 064 [id number] [place] 00:00:00 00:00:00 JING [address] 2021-05-02 2021-05-02 Outpatient EMIR, [facility] [id number] [place] 00:00:00 00:00:00 YVETTE [address] 2021-04-17 2021-04-17 Outpatient EMIR, [facility] [id number] [place] 00:00:00 00:00:00 YVETTE [address] 2021-04-17 2021-04-17 Outpatient EMIR, [facility] [id number] [place] 00:00:00 00:00:00 YVETTE [address] 2021-04-10 2021-04-10 Outpatient HUNTER, [facility] [id number] [place] 00:00:00 00:00:00 KAREN [address] 2021-03-27 2021-03-27 Outpatient EMIR, [facility] [id number] [place] 00:00:00 00:00:00 YVETTE [address] 2021-03-27 2021-03-27 Outpatient EMIR, [facility] [id number] [place] 00:00:00 00:00:00 YVETTE [address] 2021-03-13 2021-03-13 Outpatient HUNTER, [facility] [id number] 471 [place] 00:00:00 00:00:00 KAREN [address] 2021-03-06 2021-03-06 Outpatient [facility] [id number] [place] 00:00:00 00:00:[address] 2021-03-06 2021-03-06 Outpatient [facility] [id number] [place] 00:00:00 00:00:[address] 2021-02-20 2021-02-26 Inpatient EMIR, [facility] [id number] [place] 00:00:00 00:00:00 YVETTE [address] 2021-02-20 2021-02-20 Outpatient OHARA, [facility] [id number] [place] 00:00:00 00:00:00 REX [address] 2021-02-20 2021-02-20 Outpatient OHARA, [facility] [id number] [place] 00:00:00 00:00:00 REX [address] 2021-02-17 2021-02-17 Outpatient HUNTER, [facility] [id number] [place] 00:00:00 00:00:00 KAREN [address] 2021-02-17 2021-02-17 Outpatient HUNTER, [facility] [id number] 200 [place] 00:00:00 00:00:00 KAREN 184 [facility] [address] 2021-02-16 2021-02-16 Outpatient HUNTER, [facility] [id number] [place] 00:00:00 00:00:00 KAREN 921 [address] 2021 2021 Outpatient HUNTER, [facility] [id number] [place] 00:00:00 00:00:00 KAREN 208 [facility] [address] 2021-02-09 2021-02-09 Outpatient HUNTER, [facility] [id number] [place] 00:00:00 00:00:00 KAREN 930 Meth[facility] di 2021-01-30 2021-01-30 Outpatient EMIR, [facility] [id number] [place] 00:00:00 00:00:00 YVETTE 100 Method i 2021-01-30 2021-01-30 Outpatient EMIR, [facility] [id number] [place] 00:00:00 00:00:00 YVETTE 764 Method i 2021-01-22 2021-01-22 Emergency EADEH, [facility] [id number] [place] 00:00:00 00:00:00 ANISH 918 Method i 2021-01-13 2021-01-13 Outpatient EMIR, [facility] [id number] [place] 00:00:00 00:00:00 YVETTE 967 Method i 2021-01-13 2021-01-13 Outpatient EMIR, [facility] [id number] [place] 00:00:00 00:00:00 YVETTE 615 Method i 2021-01-12 2021-01-12 Outpatient HUNTER, [facility] [id number] [place] 00:00:00 00:00:00 KAREN 330 Metho di 2021-01-04 2021-01-05 Outpatient MONTEZ, [facility] [id number] [place] 00:00:00 00:00:00 YANET 105 Method i 2020-12-16 2020-12-16 Outpatient [facility] [id number] [place] 00:00:00 00:00:00 973 Method i 2020-12-05 2020-12-06 Outpatient HUNTER, [facility] [id number] [place] 00:00:00 00:00:00 KAREN 760 Metho di 2020-12-02 2020-12-02 Outpatient EMIR, [facility] [id number] [place] 00:00:00 00:00:00 YVETTE 191 Method i 2020-12-02 2020-12-02 Outpatient [facility] [id number] [place] 00:00:00 00:00:00 549 Method i 2020-11-22 2020-11-29 Inpatient MONTEZ, [facility] 014 [id number] [place] 00:00:00 00:00:00 YANET 466 Method i 2020-11-21 2020-11-21 Outpatient EMIR, [facility] [id number] [place] 00:00:00 00:00:00 YVETTE 116 Method i 2020-11-21 2020-11-21 Outpatient EMIR, [facility] [id number] [place] 00:00:00 00:00:00 YVETTE 021 Method i 2020-11-14 2020-11-14 Outpatient [facility] [id number] [place] 00:00:00 00:00:00 697 Method i 2020-11-14 2020-11-14 Outpatient [facility] [id number] [place] 00:00:00 00:00:00 781 Method i 2020-11-04 2020-11-07 Inpatient CÉSAR, UMAR [facility] [id number] [place] 00:00:00 00:00:00 861 Method i 2020-11-02 2020-11-02 Outpatient DENA Smith Y371 [facility] 08:00:00 23:59:00 Ug[place] 28361 [facility] 2020-11-02 2020-11-02 Outpatient RICHAR MondragonCL LABO Y371 [facility] 18:13:00 18:13:00 Ug[place] [address] [facility] 2020-10-24 2020-10-24 Outpatient DALE, [facility] [id number] [place] 00:00:00 00:00:00 KAREN [address] 2020-10-01 2020-10-02 Outpatient MELIDA, [facility] [id number] [place] 00:00:00 00:00:00 YANET [address] 2020-09-30 2020-09-30 Outpatient ASHLEY BEYER [facility] [id number] [place] 00:00:00 00:00:[address] 2020-09-30 2020-09-30 Outpatient PEPITO ASHLEY [facility] [id number] [place] 00:00:00 00:00:[address] 2020-09-15 2020-09-17 Outpatient PEPITO [facility] [id number] [place] 00:00:00 00:00:[address] 2020-09-12 2020-09-12 Outpatient PEPITO ASHLEY [facility] [id number] [place] 00:00:00 00:00:[address] 2020-09-12 2020-09-12 Outpatient PEPITO ASHLEY [facility] [id number] [place] 00:00:00 00:00:[address] 2020-09-12 2020-09-12 Outpatient PEPITO [facility] [id number] [place] 00:00:00 00:00:[address] 2020-09-01 2020-09-05 Inpatient PEPITO [facility] [id number] [id number] [place] 00:00:00 00:00:[address] 2020-08-23 2020-08-26 Inpatient PEPITO [facility] [id number] [id number] [place] 00:00:00 00:00:[address] 2020-08-19 2020-08-19 Outpatient P[place] ASHLEY [facility] [id number] [place] 00:00:00 00:00:[address] 2020-08-16 2020-08-16 Outpatient ASHLEY BEYER [facility] [id number] [place] 00:00:00 00:00:[address] 2020-08-11 2020-08-11 Outpatient ASHLEY BEYER [facility] [id number] [place] 00:00:00 00:00:[address] 2020-08-01 2020-08-10 Outpatient ASHLEY BEYER [facility] [id number] [place] 00:00:00 00:00:[address] 2020-08-01 2020-08-01 Outpatient ASHLEY BEYER [facility] [id number] [place] 00:00:00 00:00:[address] 2020-08-01 2020-08-01 Outpatient ASHLEY BEYER [facility] [id number] [place] 00:00:00 00:00:[address] 2020-08-01 2020-08-01 Outpatient DALE [facility] [id number] [place] 00:00:00 00:00:00 KAREN [address] 2020-08-01 2020-08-01 Outpatient ASHLEY BEYER [facility] [id number] [place] 00:00:00 00:00:[address] 2020-07-18 2020-07-18 Outpatient LEV [facility] [id number] [place] 00:00:00 00:00:00 REX [address] 2020-07-18 2020-07-18 Outpatient LEV [facility] [id number] [place] 00:00:00 00:00:00 REX [address] 2020-07-18 2020-07-18 Outpatient LEV [facility] [id number] [place] 00:00:00 00:00:00 REX [address] 2020-06-23 2020-06-23 Outpatient DALE [facility] [id number] [place] 00:00:00 00:00:00 KAREN [address] 2020-06-20 2020-06-20 Outpatient DEAN Nguyen [id number] [facility] 08:30:00 08:30:00 Antwan 73707 [facility] 2020-05-27 2020-05-27 Outpatient DENA Nguyen RADI [id number] [facility] 13:30:00 13:30:00 Antwan [address]229 [facility] 2020-05-26 2020-05-26 Outpatient DALE, [facility] [id number] [place] 00:00:00 00:00:00 AKREN [address] 2020-05-02 2020-05-02 Outpatient DALE, [facility] [id number] [place] 00:00:00 00:00:00 KAREN [address] 2020-04-26 2020-04-26 Emergency Morris, [facility] [id number] 15:53:00 18:18:00 Annalisa Maxwell [id number] [place] [id number] [place] [id number] 2020-04-26 2020-04-26 Emergency X [facility] ERT [id number] [facility] 15:39:00 15:39:[address] [facility] 2020-04-26 2020-04-26 Orders Doctor COLLINS [id number] 00:00:00 00:00:00 Only Unassigned, JOSH 350.1.13.10 [place] [facility] [id number] 2020-04-14 2020-04-14 Outpatient RICHAR NguyenTO SURG [id number] - [facility] 09:15:00 09:15:00 Antwan 39375 [facility] 2020-04-14 2020-04-14 Outpatient DALE [facility] [id number] [place] 00:00:00 00:00:00 KAREN [address] 2020-04-13 2020-04-13 Outpatient RICHAR NguyenWH SIST [id number] - [facility] 18:17:00 18:17:00 Antwan [address] [facility] 2020-03-14 2020-03-14 Outpatient LEV, [facility] [id number] [place] 00:00:00 00:00:00 REX [address] 2020-03-14 2020-03-14 Outpatient LEV, [facility] [id number] [place] 00:00:00 00:00:00 REX [address] 2020-03-02 2020-03-02 Outpatient JOSE, [facility] [id number] [place] 00:00:00 00:00:00 MARÍA 132 Method i 2020-03-02 2020-03-02 Outpatient JOSE, [facility] [id number] [place] 00:00:00 00:00:00 MARÍA [address] 2020-02-22 2020-02-22 Outpatient HUNTER, [facility] [id number] [place] 00:00:00 00:00:00 KAREN 362 Metho di 2020-02-15 2020-02-17 Inpatient MONTEZ, [facility] [id number] [place] 00:00:00 00:00:00 YANET 467 Method i 2020-01-14 2020-01-14 Outpatient HUNTER, [facility] [id number] [place] 00:00:00 00:00:00 KAREN 553 Metho di 2020-01-11 2020-01-11 Outpatient LEV, [facility] [id number] [place] 00:00:00 00:00:00 REX 784 Method i 2020-01-11 2020-01-11 Outpatient LEV, [facility] [id number] [place] 00:00:00 00:00:00 REX 815 Method i 2019-12-28 2019-12-28 Outpatient HUNTER, [facility] [id number] [place] 00:00:00 00:00:00 KAREN 560 Meth[address] di 2019-12-16 2019-12-20 Inpatient LEV, [facility] [id number] [place] 00:00:00 00:00:00 REX 904 Method i 2019-12-14 2019-12-14 Outpatient LEV, [facility] [id number] [place] 00:00:00 00:00:00 REX 844 Method i 2019-12-07 2019-12-07 Outpatient LEV, [facility] [id number] [place] 00:00:00 00:00:00 REX 733 Method i 2019-12-07 2019-12-07 Outpatient LEV [facility] [id number] [place] 00:00:00 00:00:00 REX [address] 2019-11-09 2019-11-09 Outpatient LEV [facility] [id number] [place] 00:00:00 00:00:00 REX [address] 2019-11-09 2019-11-09 Outpatient LEV [facility] [id number] [place] 00:00:00 00:00:00 REX 484 Method i 2019-08-03 2019-08-03 Outpatient LEV [facility] [id number] [place] 00:00:00 00:00:00 REX 167 Method i 2017-09-25 2017-09-27 Phone nullFlavo [facility] [id number] [facility] 16:46:00 04:59:59 Message r Clinic TM 32 radha [place]more 2017-08-20 2017-08-21 Outpatient nullFlavo [facility] [id number] [facility] 14:30:00 04:59:59 r Clinic TM 29 [facility] 2017-08-19 2017-08-20 Outpt Diag nullFlavo [facility] [id number] Mem[facility] 18:40:00 04:59:00 Services [facility] 2017-08-14 2017-08-16 Phone nullFlavo [facility] [id number] [facility] 18:53:00 05:59:59 Message r Clinic TM 31 radha [place] 2017-08-07 2017-08-09 Phone nullFlavo [facility] [id number] [facility] 14:24:00 05:59:59 Message r Clinic TM 30 [facility] 2017-08-08 2017-08-08 Ambulatory nullFlavo [facility] [id number] [facility] 17:00:00 17:00:00 Pre-Reg r Clinic TM 11 [facility] 2017-07-26 2017-07-28 Phone nullFlavo [facility] [id number] [facility] 22:39:00 05:59:59 Message r Clinic TM 29 radha [place] 2017-07-22 2017-07-24 Phone nullFlavo [facility] [id number] [facility] 23:01:00 05:59:59 Message r Clinic TM 28 [facility] 2017-07-18 2017-07-19 Outpatient nullFlavo [facility] [id number] [facility] 19:40:00 05:59:59 r Clinic [facility] 28 [facility] 2017-07-11 2017-07-13 Phone nullFlavo [facility] [id number] Memoria 16:27:00 05:59:59 Message r Clinic [facility] 27 [facility] 2017-07-11 2017-07-11 Ambulatory nullFlavo [facility] [id number] [facility] 15:40:00 15:40:00 Pre-Reg r Clinic [facility] 27 [facility] 2017-07-10 2017-07-10 Ambulatory nullFlavo [facility] [id number] [facility] 16:00:00 16:00:00 Pre-Reg r Internal 18 [facility] 2017-07-09 2017-07-10 Outpatient nullFlavo [facility] [id number] Mem[facility] 17:40:00 05:59:59 r [facility] 26 [facility] 2017-07-08 2017-07-10 Phone nullFlavo [facility] [id number] [facility] 17:26:00 05:59:59 Message r Clinic [facility] 26 [facility] 2017-07-09 2017-07-09 Ambulatory nullFlavo [facility] [id number] Mem[facility] 19:40:00 19:40:00 Pre-Reg r Clinic [facility] 24 [facility] 2017-07-08 2017-07-08 Ambulatory nullFlavo [facility] [id number] Memoria 19:00:00 19:00:00 Pre-Reg r Clinic [facility] 23 [facility] 2017-07-08 2017-07-08 Ambulatory nullFlavo [facility] [id number] [facility] 17:40:00 17:40:00 Pre-Reg r Clinic [facility] 25 [facility] 2017-07-03 2017-07-05 Phone nullFlavo MNA [id number] [facility] 17:29:00 05:59:59 Message r Neurosurger 25 l [facility] 2017-07-04 2017-07-04 Ambulatory nullFlavo [facility] [id number] Mem[facility] 20:20:00 20:20:00 Pre-Reg r Clinic [facility] 21 [facility] 2017-07-03 2017-07-03 Outpatient MHIE MHIE [id number] [facility] 14:20:00 14:20:00 22 [facility] 2017-06-18 2017-06-19 Outpatient nullFlavo [facility] [id number] [facility] 20:20:00 05:59:59 r Clinic TM 20 radha Vince 2017-06-12 2017-06-14 Phone nullFlavo [facility] [id number] [facility] 17:41:00 05:59:59 Message r Clinic TM 24 radha [place] 2017-06-13 2017-06-13 Ambulatory nullFlavo [facility] [id number] Memoria 20:20:00 20:20:00 Pre-Reg r Clinic TM 19 radha [place]more 2017-06-12 2017-06-12 Ambulatory nullFlavo [facility] [id number] [facility] 16:20:00 16:20:00 Pre-Reg r Clinic [facility] 15 radha [place]more 2017-06-11 2017-06-11 Ambulatory nullFlavo [facility] [id number] [facility] 20:00:00 20:00:00 Pre-Reg r Clinic [facility] 16 [facility] 2017-06-06 2017-06-07 Outpatient nullFlavo [facility] [id number] Memoria 19:30:00 05:59:59 r Clinic [facility] 17 [facility] 2017-05-29 2017-05-30 Outpatient nullFlavo [facility] [id number] Memoria 19:20:00 05:59:59 r Clinic [facility] 14 radha [place]more 2017-05-28 2017-05-30 Phone nullFlavo [facility] [id number] [facility] 17:01:00 05:59:59 Message r Clinic [facility] 23 [facility] 2017-05-23 2017-05-25 Phone nullFlavo [facility] [id number] Mem[facility] 20:54:00 05:59:59 Message r Clinic [facility] 22 [facility] 2017-05-21 2017-05-22 Outpatient nullFlavo [facility] [id number] Memoria 17:20:00 05:59:59 r Clinic [facility] 13 [facility] 2017-05-20 2017-05-21 Outpatient nullFlavo [facility] [id number] Memoria 20:00:00 05:59:59 r Clinic [facility] 12 [facility] 2017-05-14 2017-05-15 Outpatient nullFlavo [facility] [id number] Memoria 21:03:00 05:59:00 r Outpatient 10 [facility] 2017-05-14 2017-05-15 Outpt Diag nullFlavo [facility] [id number] Memoria 18:22:00 05:59:00 Services r Outpatient [address] [facility] 2017-04-29 2017-04-30 Outpatient nullFlavo [facility] [id number] Memoria 15:00:00 05:59:59 r Clinic TM 10 [facility] 2017-04-26 2017-04-27 Outpatient nullFlavo [facility] [id number] Memoria 16:15:00 05:59:59 r Clinic TM 09 [facility] 2017-04-06 2017-04-07 Outpt Diag nullFlavo [facility] [id number] Memoria 16:12:00 04:59:00 Services r Outpatient 09 l [facility] 2017-01-30 2017-01-30 Outpatient MHIE MHIE [id number] Mem[facility] 10:45:00 10:45:00 08 [facility] 2016-11-07 2016-11-07 Outpatient MHIE MHIE [id number] [facility] 10:45:00 10:45:00 07 [facility] 2016-08-27 2016-08-27 Outpatient MHIE MHIE [id number] [facility] 11:00:00 11:00:00 06 [facility] 2016-08-14 2016-08-15 Day [facility]Flavo [facility] [id number] [facility] 13:00:00 05:59:00 Surgery r [place] 04 [facility] 2016-08-14 2016-08-14 Outpatient MHIE MHIE [id number] Memoria 10:00:00 10:00:00 05 [facility] 2016-08-06 2016-08-06 Outpatient MHIE MHIE [id number] Memoria 11:15:00 11:15:00 04 [facility] 2016-07-28 2016-07-29 Outpt Diag nullFlavo [facility] [id number] Memoria 21:58:00 05:59:00 Services r Outpatient 08 [facility] 2016-04-23 2016-04-23 Outpatient MHIE MHIE [id number] Memoria 12:45:00 12:45:00 03 [facility] 2016-02-29 2016-02-29 Outpatient MHIE MHIE [id number] Memoria 11:45:00 11:45:00 02 [facility] 2016 2016-02-15 Inpatient nullFlavo [facility] [id number] Memoria 11:02:00 16:15:00 r [place] 03 l [facility] 2016 2016 Outpatient [facility] [id number] Memoria 08:00:00 08:00:00 01 [facility] 2015-05-10 2015-05-11 Outpt Diag nullFlavo [facility] [id number] Memoria 20:29:00 05:59:00 Services r Outpatient 06 l Imaging Vince [place] 2014-11-08 2014-11-09 Outpt Diag nullFlavo [facility] [id number] Memoria 12:35:00 04:59:00 Services r Outpatient 05 l Imaging Vince [place] 2014-10-27 2014-10-28 Outpt Diag nullFlavo [facility] [id number] Memoria 19:17:00 04:59:00 Services r Outpatient 04 l Imaging Vince [place] 2013-12-23 2013-12-24 Outpt Diag nullFlavo [facility] [id number] Memoria 19:21:00 04:59:00 Services r Outpatient 03 l Imaging [place] Vince 2013-12-08 2013-12-09 Outpt Diag nullFlavo [facility] [id number] Memoria 19:11:00 04:59:00 Services r [facility] 2012-12-02 2012-12-02 CAMRYN nullFlavo [facility] [id number] Memoria 09:55:00 12:45:00 r [facility] 02 [facility] 2011-08-30 2011-08-31 Inpatient nullFlavo [facility] [id number] Memoria 08:06:00 21:30:00 [facility] 01 [facility] 2011-06-12 2011-06-12 CAMRYN nullFlavo [facility] [id number] Memoria 09:44:00 11:55:00 r [facility] 00 [facility] Results Test Description Test Time Test Comments Results Result Comments Source SARS-CoV-2 (COVID-19) RNA [Presence] in Respiratory sp ecimen by 2021-05-10 20:02:01 ALEJANDRO with probe detection Test Item Value Reference Range Interpretation Comme nts SARS-CoV-2 (COVID-19) RNA [Presence] in Respiratory Not detected No t-Detected specimen by ALEJANDRO with probe detection (test code = 18201-5) 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 (test code = 94933-4) Whether the patient has symptoms related to condition of interest (test code = 69551-4) Patient was hospitalized because of this condition (test code = 45629-1) Whether the patient was admitted to intensive care unit (ICU) for condition of interest (test code = 95497-7) Whether patient resides in a congregate care setting (test code = 34560-3) SARS-CoV-2 (COVID-19) RNA [Presence] in Respiratory specimen by ALEJANDRO with probe [id number] 04:09:45 Test Item Value Reference Range Interpretation Comments SARS-CoV-2 (COVID-19) RNA Not detected Not-Detected [Presence] in Respiratory specimen by ALEJANDRO with probe detection (test code = 38549-6) 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 (test code = 82676-2) Whether the patient has symptoms related to condition of interest (test code = 29550-3) Patient was hospitalized because of this condition (test code = 41477-9) Whether the patient was admitted to intensive care unit (ICU) for condition of interest (test code = 08847-9) Whether patient resides in a congregate care setting (test code = 41601-7) SARS-CoV-2 (COVID-19) RNA [Presence] in Respiratory specimen by ALEJANDRO with probe [id number] 20:04:23 Test Item Value Reference Range Interpretation Comments SARS-CoV-2 (COVID-19) RNA Not detected Not-Detected [Presence] in Respiratory specimen by ALEJANDRO with probe detection (test code = 40714-3) 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 (test code = 49712-5) Whether the patient has symptoms related to condition of interest (test code = 18620-0) Patient was hospitalized because of this condition (test code = 75501-7) Whether the patient was admitted to intensive care unit (ICU) for condition of interest (test code = 17870-2) Whether patient resides in a congregate care setting (test code = 48664-9) SARS-CoV-2 (COVID-19) RNA [Presence] in Respiratory specimen by ALEJANDRO with probe [id number] 20:24:46 Test Item Value Reference Range Interpretation Comments SARS-CoV-2 (COVID-19) RNA Not detected Not-Detected [Presence] in Respiratory specimen by ALEJANDRO with probe detection (test code = 43550-0) 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 (test code = 85909-4) Whether the patient has symptoms related to condition of interest (test code = 47527-6) Patient was hospitalized because of this condition (test code = 67448-6) Whether the patient was admitted to intensive care unit (ICU) for condition of interest (test code = 99763-6) Whether patient resides in a congregate care setting (test code = 87168-8) Novel Coronavirus 2018 [id number] 05:32:00 Test Item Value Reference Range Interpretation Comments Novel Coronavirus Negative Negative Positive r esults are 2019 Inhouse (test indicativ e of the presence code = COVNONPUI) ofSARS-CoV -2 RNA, clinical correlation wit h patient historyand othe r diagnostic info rmation is necessary to determinepatien t infection status. Positiv e results do not rule out bacterial infection or co -infection with other viru ses. Negative result s do not preclude SARS-C oV-2 infection andsh ould not be used as the billy e basis for patient managementdecis ions. Negative result s must be combined with otherclinical observations, p atient history, and epidemiological information . Detection of SARS-CoV-2 RNA may be affe cted bysample collec tion methods, storag e conditions, and /or stageof infection. Tracie l RNA mutations, vacc inations, antiviraltherap eutics, antibiotics, chemotherapeuti c orimmunosuppres kaci drugs have not been e valuated for effectson d etection. Results are for the identification of SARS-CoV-2 RNA usingthe Kumar M2000 Sy stem under the FDA Emergen cy UseAuthorizatio n. The testing is perf ormed by annatrasuyapa d in the procedures for the Kumar M2000 molecular diagnostic SARS-CoV-2 assa y in vitro. Novel Coronavirus 2018 [id number] 05:31:00 Test Item Value Reference Range Interpretation Comments Novel Coronavirus Negative Negative Positive r esults are 2019 Inhouse (test indicativ e of the presence code = COVNONPUI) ofSARS-CoV -2 RNA, clinical correlation wit h patient historyand othe r diagnostic info rmation is necessary to determinepatien t infection status. Positiv e results do not rule out bacterial infection or co -infection with other viru ses. Negative result s do not preclude SARS-C oV-2 infection andsh ould not be used as the billy e basis for patient managementdecis ions. Negative result s must be combined with otherclinical observations, p atient history, and epidemiological information . Detection of SARS-CoV-2 RNA may be affe cted bysample collec tion methods, storag e conditions, and /or stageof infection. Tracie l RNA mutations, vacc inations, antiviraltherap eutics, antibiotics, chemotherapeuti c orimmunosuppres kaci drugs have not been e valuated for effectson d etection. Results are for the identification of SARS-CoV-2 RNA usingthe Kumar M2000 Sy stem under the FDA Emergen cy UseAuthorizatio n. The testing is perf ormed by personneltraine d in the procedures for the Basha M2000 molecular diagnostic SARS-CoV-2 assa y in vitro. C REACTIVE [id number] 18:18:00 Test Item Value Reference Range Interpretation Comments C REACTIVE PROTEIN (test code = < 0.2 mg/dL <0.9 CRP) COMPREHENSIVE METABOLIC [id number] 18:18:00 Test Item Value Reference Range Interpretation Comments SODIUM (test code = 140 mmol/L 136-145 N NA) POTASSIUM (test code = 5.0 mmol/L 3.5-5.1 N K) CHLORIDE (test code = 102.0 mmol/L 98-107 N CL) CARBON DIOXIDE (test 31.0 mmol/L 21-32 N code = CO2) GLUCOSE (test code = 89 mg/dL 70-110 N GLU) BLOOD UREA NITROGEN 14 mg/dL 7-18 N (test code = BUN) GLOMERULAR FILTRATION 82.6 >60 Unit o f measure: RATE (test code = GFR) mL/mi n/1.73 h5Ogrdshnks Range:Healthy Adults >90 mL/min/1.73 m2 For Chronic Kidney Disease: St age II Mild Decrease in GFR 60-90 St age III Moderate Decrease in GFR 30-59 Stage IV Severe Decre ase in GFR 15- 29 Stage V Kidney Failure <15 CREATININE (test code 0.72 mg/dL 0.55-1.30 N = CREAT) TOTAL PROTEIN (test 6.5 g/dL 6.4-8.2 N code = PROT) ALBUMIN (test code = 3.6 g/dL 3.4-5.0 N ALB) GLOBULIN (test code = 2.9 g/dL 2.2-4.2 N GLOB) ALBUMIN/GLOBULIN RATIO 1.2 0.7-2.0 N (test code = A/G) CALCIUM (test code = 9.3 mg/dL 8.2-10.1 N CA) BILIRUBIN TOTAL (test 0.40 mg/dL 0.2-1.00 N code = BILT) SGOT/AST (test code = 43.0 U/L 15-37 H AST) SGPT/ALT (test code = 43.0 U/L 12-78 N Please note new ALT) normal range. ALKALINE PHOSPHATASE 173 U/L 46-116 H TOTAL (test code = ALKP) CBC W/AUTO [id number] 18:12:00 Test Item Value Reference Range Interpretation Comments WHITE BLOOD CELL (test code = WBC) 6.2 K/mm3 5.8-11.0 N RED BLOOD CELL (test code = RBC) 3.94 M/mm3 4.2-5.4 L HEMOGLOBIN (test code = HGB) 11.7 g/dL 12-16 L HEMATOCRIT (test code = HCT) 36.4 % 37-47 L MEAN CELL VOLUME (test code = MCV) 92 fL 80-98 N MEAN CELL HGB (test code = MCH) 29.7 pg 27-34 N MEAN CELL HGB CONCENTRATION (test 32.1 g/dL 30.8-34.1 N code = MCHC) RED CELL DISTRIBUTION WIDTH (test 15.5 % 11-16 N code = RDW) PLT (test code = PLT) 279 K/mm3 130-400 N MEAN PLATELET VOLUME (test code = 10.4 fL 8.9-12.1 N MPV) NEUTROPHIL % (test code = NT%) 68.4 % 45-70 N LYMPHOCYTE % (test code = LY%) 19.2 % 20-40 L MONOCYTE % (test code = MO%) 10.6 % 3-10 H EOSINOPHIL % (test code = EO%) 1.0 % 1-5 N BASOPHIL % (test code = BA%) 0.6 % 0.0-1.1 N NEUTROPHIL # (test code = NT#) 4.22 K/mm3 2.00-7.50 N LYMPHOCYTE # (test code = LY#) 1.18 K/mm3 1.50-4.00 L MONOCYTE # (test code = MO#) 0.65 K/mm3 0.2-0.8 N EOSINOPHIL # (test code = EO#) 0.06 K/mm3 0.04-0.4 N BASOPHIL # (test code = BA#) 0.04 K/mm3 0.02-0.10 N MANUAL DIFF REQUIRED (test code = NO MANUAL DIFF MDIFF) NUCLEATED RED BLOOD CELL (test 0 % 0-0 N code = NRBC) SED [id number] 18:12:00 Test Item Value Reference Range Interpretation Comments SED RATE (test code = SEDW) 17 mm/hr 0-20 N PROTHROMBIN [id number] 17:30:00 Test Item Value Reference Range Interpretation Comments PROTHROMBIN TIME 11.3 secs 10.1-12.5 N PATIENT (test code = PTP) INTERNATIONAL NORMAL 0.99 <2.0 RECOMME NDED THERAPEUTIC RATIO (test code [...] notified if Patient is on Heparin Drip? NOIf Yes, orderCBC, OCCULT BLOOD, PT every other day NTHROMBOPLASTIN TIME [id number] 17:30:00 Test Item Value Reference Range Interpretation Comments PTT ACTIVATED (test code = APTT) 32.3 secs 24.9-37.0 N IS PATIENT ON ANTICOAGULANTS ? NHas Lab been notified if Patient is on Heparin Drip? NOIf Yes, orderCBC, OCCULT BLOOD, PT every other day NCBC W/AUTO DIFF 2020-11-02 17:12:00 Test Item Value Reference Range Interpretation Comments WHITE BLOOD CELL (test code = WBC) 6.2 K/mm3 5.8-11.0 N RED BLOOD CELL (test code = RBC) 3.94 M/mm3 4.2-5.4 L HEMOGLOBIN (test code = HGB) 11.7 g/dL 12-16 L HEMATOCRIT (test code = HCT) 36.4 % 37-47 L MEAN CELL VOLUME (test code = MCV) 92 fL 80-98 N MEAN CELL HGB (test code = MCH) 29.7 pg 27-34 N MEAN CELL HGB CONCENTRATION (test 32.1 g/dL 30.8-34.1 N code = MCHC) RED CELL DISTRIBUTION WIDTH (test 15.5 % 11-16 N code = RDW) PLT (test code = PLT) 279 K/mm3 130-400 N MEAN PLATELET VOLUME (test code = 10.4 fL 8.9-12.1 N MPV) NEUTROPHIL % (test code = NT%) 68.4 % 45-70 N LYMPHOCYTE % (test code = LY%) 19.2 % 20-40 L MONOCYTE % (test code = MO%) 10.6 % 3-10 H EOSINOPHIL % (test code = EO%) 1.0 % 1-5 N BASOPHIL % (test code = BA%) 0.6 % 0.0-1.1 N NEUTROPHIL # (test code = NT#) 4.22 K/mm3 2.00-7.50 N LYMPHOCYTE # (test code = LY#) 1.18 K/mm3 1.50-4.00 L MONOCYTE # (test code = MO#) 0.65 K/mm3 0.2-0.8 N EOSINOPHIL # (test code = EO#) 0.06 K/mm3 0.04-0.4 N BASOPHIL # (test code = BA#) 0.04 K/mm3 0.02-0.10 N MANUAL DIFF REQUIRED (test code = NO MANUAL DIFF MDIFF) NUCLEATED RED BLOOD CELL (test 0 % 0-0 N code = NRBC) SED [id number] 17:12:00 Test Item Value Reference Range Interpretation Comments SED RATE (test code = SEDW) mm/hr 0-20 SARS-CoV-2 (COVID-19) RNA [Presence] in Respiratory specimen by ALEJANDRO with probe [id number] 19:39:45 Test Item Value Reference Range Interpretation Comments SARS-CoV-2 (COVID-19) RNA Not detected Not-Detected [Presence] in Respiratory specimen by ALEJANDRO with probe detection (test code = 82398-6) 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 (test code = 81808-9) Whether the patient has symptoms related to condition of interest (test code = 89841-5) Patient was hospitalized because of this condition (test code = 99122-2) Whether the patient was admitted to intensive care unit (ICU) for condition of interest (test code = 14891-3) Whether patient resides in a congregate care setting (test code = 27277-1) SARS-CoV-2 (COVID-19) RNA [Presence] in Respiratory specimen by ALEJANDRO with probe [id number] 22:57:40 Test Item Value Reference Range Interpretation Comments SARS-CoV-2 (COVID-19) RNA Not detected Not-Detected [Presence] in Respiratory specimen by ALEJANDRO with probe detection (test code = 29364-8) SARS-CoV-2 (COVID-19) RNA [Presence] in Respiratory specimen by ALEJANDRO with probe [id number] 06:01:55 Test Item Value Reference Range Interpretation Comments SARS-CoV-2 (COVID-19) RNA Not detected Not-Detected [Presence] in Respiratory specimen by ALEJANDRO with probe detection (test code = 90129-0) SARS-CoV-2 (COVID-19) RNA [Presence] in Respiratory specimen by ALEJANDRO with probe [id number] 23:06:10 Test Item Value Reference Range Interpretation Comments SARS-CoV-2 (COVID-19) RNA Not detected Not-Detected [Presence] in Respiratory specimen by ALEJANDRO with probe detection (test code = 37105-8) - CT LOWER EXTRM W/O C [id number] 16:09:00 [facility] 1960 Sex: F Patient Name: AYAH ALVARADO Unit No: [id number] EXAMS: CPT CODE: [id number] [place] LOWER EXTR[place] W/[place] [address] [place] OF THE LEFT PROXIMAL FEMUR AND [...] with ACR practice standards and adherence to freight checker's recommendations. Minimal healing ofthe proximal femoral fracture is seen. Periosteal new bone formation is present. at 1609 Reported and signed by: Charles Perez MD CC: Antwan Nguyen MD Technologist: Raheel Mchugh,RT(R) CTDI: DLP: Trnscrpt: 05/27/2020 (1609) t.MELLYR.JCL [facility] NAME: AYAH ALVARADO [address] PHYS: BRIMA.[id number] - Antwan Nguyen MD : 1960 AGE: 60 SEX: F [place], [place] [address] LOC: Y.RAD PHONE #: [phone] EXAM DATE: 05/27/2020 STATUS: REG CLI FAX #: [phone] RAD #: [id number] D/C DT PAGE 1 Signed Report Patient Name: AYAH ALVARADO Unit No: [id number] EXAMS: CPT CODE: [id number] CT LOWER EXTRM W/[place] [address] <Continued> Orig Print D/T: S: 05/27/2020 (1613) [facility] NAME: AYAH ALVARADO [address] [facility] PHYS: [email or web address].Zack - Antwan Nguyen MD : 1960 AGE: 60 SEX: F [place], [place] [address] LOC: Y.RAD PHONE #: [phone] EXAM DATE: 05/27/2020 STATUS: REG CLI FAX #: [phone] RAD #: [id number] D/C DT PAGE 2 Signed ReportBASIC METABOLIC PANEL 2020-04-15 06:37:00 Test Item Value Reference Range Interpretation Comments SODIUM (test code = 141 mmol/L 136-145 N NA) POTASSIUM (test code = 4.6 mmol/L 3.5-5.1 N K) CHLORIDE (test code = 104.0 mmol/L 98-107 N CL) CARBON DIOXIDE (test 31.0 mmol/L 21-32 N code = CO2) GLUCOSE (test code = 67 mg/dL 70-110 L GLU) BLOOD UREA NITROGEN 16 mg/dL 7-18 N (test code = BUN) GLOMERULAR FILTRATION 77.6 >60 Unit o f measure: RATE (test code = GFR) mL/mi n/1.73 i6Llwaipwwq Range:Healthy Adults >90 mL/min/1.73 m2 For Chronic Kidney Disease: St age II Mild Decrease in GFR 60-90 St age III Moderate Decrease in GFR 30-59 Stage IV Severe Decre ase in GFR 15- 29 Stage V Kidney Failure <15 CREATININE (test code 0.76 mg/dL 0.55-1.30 N = CREAT) CALCIUM (test code = 8.7 mg/dL 8.2-10.1 N CA) CBC W/AUTO [id number] 06:01:00 Test Item Value Reference Range Interpretation [...] 0-0 N code = NRBC) ACUTE HEPATITIS [id number] 21:48:00 Test Item Value Reference Range Interpretation [...] 2 (test NONREACTIVE NONREACTIVE Done by S [employer] code = CRV34EK) 4th Gen HIV Ag/Ab Combo Screen ACUTE HEPATITIS [id number] 21:48:00 Test Item Value Reference Range Interpretation [...] NONREACTIVE NONREACTIVE DONE AT: [facility] = HIV1AB) [id number] [place], [place] [address] by [employer] [facility] aur 4th Gen HIV Ag/Ab C ombo Screen ACUTE HEPATITIS [id number] 21:46:00 Test Item Value Reference Range Interpretation [...] AB HIV 1 2 (test code = JDM87SJ) NONREACTIVE ACUTE HEPATITIS [id number] 21:46:00 Test Item Value Reference Range Interpretation [...] (test code = HIV1AB) NONREACTIVE ACUTE HEPATITIS [id number] 21:45:00 Test Item Value Reference Range Interpretation [...] (test code = HIV1AB) NONREACTIVE ACUTE HEPATITIS [id number] 21:44:00 Test Item Value Reference Range Interpretation [...] AB HIV 1 2 (test code = INL65FH) NONREACTIVE ACUTE HEPATITIS [id number] 21:25:00 Test Item Value Reference Range Interpretation [...] (test code = HIV1AB) NONREACTIVE ACUTE HEPATITIS [id number] 21:24:00 Test Item Value Reference Range Interpretation [...] AB HIV 1 2 (test code = LZH87JG) NONREACTIVE COVID 19 Asymptomatic IH [id number] 18:48:00 Test Item Value Reference Range Interpretation Comments COVID 19 Asymptomatic IH AG (test NEGATIVE NEGATIVE code = COVNONPUIAG) CBC W/AUTO [id number] 18:32:00 Test Item Value Reference Range Interpretation [...] % 0-0 N code = NRBC) SED [id number] 18:32:00 Test Item Value Reference Range Interpretation Comments SED RATE (test code = SEDW) 20 mm/hr 0-20 N COMPREHENSIVE METABOLIC [id number] 18:05:00 Test Item Value Reference Range Interpretation [...] RATE (test code = GFR) mL/mi n/1.73 e5Gogzlxqmz Range:Healthy Adults >90 mL/min/1.73 m2 For Chronic [...] H TOTAL (test code = ALKP) PROTHROMBIN [id number] 17:20:00 Test Item Value Reference Range Interpretation [...] Patient is on Heparin Drip? NOTHROMBOPLASTIN TIME [id number] 17:20:00 Test Item Value Reference Range Interpretation Comments PTT ACTIVATED (test code = APTT) 30.8 secs 24.9-37.0 N IS PATIENT ON ANTICOAGULANTS ? NHas Lab been notified if Patient is on Heparin Drip? NOCBC W/AUTO [id number] 17:06:00 Test Item Value Reference Range Interpretation [...] % 0-0 N code = NRBC) SED [id number] 17:06:00 Test Item Value Reference Range Interpretation Comments SED RATE (test code = SEDW) mm/hr 0-20 SARS-CoV-2 (COVID-19) RNA [Presence] in Respiratory specimen by ALEJANDRO with probe [id number] 03:45:06 Test Item Value Reference Range Interpretation Comments SARS-CoV-2 (COVID-19) RNA Not detected Not-Detected [Presence] in Respiratory specimen by ALEJANDRO with probe detection (test code = 24504-5) SARS-CoV-2 (COVID-19) RNA [Presence] in Respiratory specimen by ALEJANDRO with probe [id number] 14:33:17 Test Item Value Reference Range Interpretation Comments SARS-CoV-2 (COVID-19) RNA Not detected Not-Detected [Presence] in Respiratory specimen by ALEJANDRO with probe detection (test code = 99831-1) [id number] 18:23:00 Test Item Value Reference Range Interpretation Comments Basophils # (test code 0.1 See_Comment [Aut omated message] The = Basophils #) system which generated this result tra nsmitted reference range : <=0.2. The reference r patricio was not used to int erpret this result as normal/abnormal . [facility] ClinicHkeiiudMQUSBABXOP6253-23-64 18:23:00 Test Item Value Reference Range Interpretation Comments Basophils (test code = 0.6 See_Comment [Aut omated message] The Basophils) system which ge nerated this result tra nsmitted reference range : <=1.0. The reference r patricio was not used to int erpret this result as normal/abnormal . [facility] ClinicJiiexucQHJUASKUNO9881-03-94 18:23:00 Test Item Value Reference Range Interpretation Comments Lymphocytes # (test code = Lymphocytes 0.5 1.0-5.5 #) [facility] ClinicZijnmnlSEIDJYNNBC9710-55-83 18:23:00 Test Item Value Reference Range Interpretation Comments Segs-Bands # (test code = Segs-Bands #) 7.2 1.5-8.1 [facility] ClinicBkfhgmoVNDIRRFEAK7675-04-35 18:23:00 Test Item Value Reference Range Interpretation Comments Monocytes # (test code 0.4 See_Comment [Aut omated message] The = Monocytes #) system which generated this result tra nsmitted reference range : <=0.8. The reference r patricio was not used to int erpret this result as normal/abnormal . [facility] ClinicWionwgcOMSRGAMHPI5721-13-88 18:23:00 Test Item Value Reference Range Interpretation Comments Eosinophils (test code = 0.2 See_Comment [A utomated message] The Eosinophils) system which ge nerated this result tra nsmitted reference range : <=4.0. The reference r patricio was not used to int erpret this result as normal/abnormal . [facility] ClinicHgdskweBNPYKOJRAH9910-37-61 18:23:00 Test Item Value Reference Range Interpretation Comments Lymphocytes (test code = Lymphocytes) 6.6 20.0-40.0 [facility] ClinicQwwzxktFWNWDYLLVM6697-04-36 18:23:00 Test Item Value Reference Range Interpretation Comments Segs (test code = Segs) 88.0 45.0-75.0 [facility] ClinicAlbhmkkNONKAXZGST9922-83-38 18:23:00 Test Item Value Reference Range Interpretation Comments Monocytes (test code = Monocytes) 4.6 2.0-12.0 [facility] ClinicZurqelvFAUOLBECQF9275-78-91 18:23:00 Test Item Value Reference Range Interpretation Comments Hgb (test code = Hgb) 10.4 12.0-16.0 [facility] ClinicMfjttawKUPRDEOAEG8531-00-90 18:23:00 Test Item Value Reference Range Interpretation Comments WBC (test code = WBC) 8.2 3.7-10.4 [facility] ClinicEslqmwgHQKVWGUJWQ0139-47-20 18:23:00 Test Item Value Reference Range Interpretation Comments RBC (test code = RBC) 4.15 4.20-5.40 [facility] ClinicMnxokpkWVICIEEXSX1119-93-28 18:23:00 Test Item Value Reference Range Interpretation Comments MCHC (test code = MCHC) 31.4 32.0-36.0 [facility]LRYKCRZCFE4912-36-40 18:23:00 Test Item Value Reference Range Interpretation Comments MCV (test code = MCV) 80.0 80.0-98.0 [facility]WfjptlfWBWRCDAERE1364-55-64 18:23:00 Test Item Value Reference Range Interpretation Comments MCH (test code = MCH) 25.1 pg 27.0-31.0 [facility] TomballNxszpioWNXWLAMCQJ4846-26-51 18:23:00 Test Item Value Reference Range Interpretation Comments Hct (test code = Hct) 33.2 36.0-48.0 [facility] TomballGcqflogUMBXMGTCRC7294-67-70 18:23:00 Test Item Value Reference Range Interpretation Comments RDW (test code = RDW) 19.7 11.5-14.5 [facility] TomballTxwnogtYBRGJSYBTD9731-80-35 18:23:00 Test Item Value Reference Range Interpretation Comments MPV (test code = MPV) 7.9 7.4-10.4 [facility] TomballHejjdsjIXEJPGWTSU6116-25-06 18:23:00 Test Item Value Reference Range Interpretation Comments Platelet (test code = Platelet) 280 133-450 [facility] [employer] [id number] 11:50:00 Test Item Value Reference Range Interpretation Comments Antibody Scrn (test Negative (02/14/16 6:50 code = Antibody Scrn) AM) [employer] [id number] 11:50:00 Test Item Value Reference Range Interpretation Comments ABO/Rh (test code = ABO/Rh) O POS [employer]2016-09-06 11:50:00 Test Item Value Reference Range Interpretation Comments eGFR (test code = eGFR) 84 [facility] [employer]2016-09-06 11:50:00 Test Item Value Reference Range Interpretation Comments Glucose Lvl (test code = Glucose Lvl) 76 70-99 [employer]2016-09-06 11:50:00 Test Item Value Reference Range Interpretation Comments AGAP (test code = AGAP) 16.0 10.0-20.0 [employer] [id number] 11:50:00 Test Item Value Reference Range Interpretation Comments Calcium Lvl (test code = Calcium Lvl) 8.2 8.5-10.5 [employer] [id number] 11:50:00 Test Item Value Reference Range Interpretation Comments CO2 (test code = CO2) 26 24-32 [facility]2016-09-06 11:50:00 Test Item Value Reference Range Interpretation Comments Creatinine Lvl (test code = Creatinine 0.79 0.50-1.40 Lvl) [facility]2016-09-06 11:50:00 Test Item Value Reference Range Interpretation Comments Potassium Lvl (test code = Potassium 4.0 3.5-5.1 Lvl) [facility]2016-09-06 11:50:00 Test Item Value Reference Range Interpretation Comments BUN (test code = BUN) 16 7-22 [facility]2016-09-06 11:50:00 Test Item Value Reference Range Interpretation Comments Sodium Lvl (test code = Sodium Lvl) 146 135-145 [facility]2016-09-06 11:50:00 Test Item Value Reference Range Interpretation Comments Chloride Lvl (test code = Chloride Lvl) 108 95-109 [facility] ClinicHxtehpfEUSBMMFRAH8613-98-55 11:50:00 Test Item Value Reference Range Interpretation Comments Lymphocytes # (test code = Lymphocytes 2.9 1.0-5.5 #) [facility] ClinicNtcjsitZMKULGXFHR5303-49-26 11:50:00 Test Item Value Reference Range Interpretation Comments Segs-Bands # (test code = Segs-Bands #) 3.4 1.5-8.1 [facility] ClinicDmjtwqrODFQUPTYOX6200-56-06 11:50:00 Test Item Value Reference Range Interpretation Comments Basophils (test code = 1.1 See_Comment [Aut omated message] The Basophils) system which ge nerated this result tra nsmitted reference range : <=1.0. The reference r patricio was not used to int erpret this result as normal/abnormal . [facility] ClinicAttcdvcIXRHOQQQJQ3536-15-90 11:50:00 Test Item Value Reference Range Interpretation Comments Eosinophils (test code = 2.1 See_Comment [A utomated message] The Eosinophils) system which ge nerated this result tra nsmitted reference range : <=4.0. The reference r patricio was not used to int erpret this result as normal/abnormal . [place] 161866-09-06 11:50:00 Test Item Value Reference Range Interpretation Comments Anisocyte (test code = 1+ *ABN*(02/14/16 6:50 Anisocyte) AM) [facility] ClinicNekaqcqWXNDQPAVQV8912-25-18 11:50:00 Test Item Value Reference Range Interpretation Comments Basophils # (test code 0.1 See_Comment [Aut omated message] The = Basophils #) system which generated this result tra nsmitted reference range : <=0.2. The reference r patricio was not used to int erpret this result as normal/abnormal . [facility] ClinicDtnyhvlQIUYEBVBUX8027-12-59 11:50:00 Test Item Value Reference Range Interpretation Comments Eosinophils # (test code 0.2 See_Comment [A utomated message] The = Eosinophils #) system whic h generated this result tra nsmitted reference range : <=0.5. The reference r patricio was not used to int erpret this result as normal/abnormal . [facility] ClinicCpacmrkMOZFZOIHDU7819-48-83 11:50:00 Test Item Value Reference Range Interpretation Comments Monocytes # (test code 0.7 See_Comment [Aut omated message] The = Monocytes #) system which generated this result tra nsmitted reference range : <=0.8. The reference r patricio was not used to int erpret this result as normal/abnormal . [facility] ClinicHcrnrnjEDBQVUYKZT6484-43-47 11:50:00 Test Item Value Reference Range Interpretation Comments Monocytes (test code = Monocytes) 9.5 2.0-12.0 [facility] ClinicSookilyIDVWYBDUNW7940-06-50 11:50:00 Test Item Value Reference Range Interpretation Comments Lymphocytes (test code = Lymphocytes) 39.6 20.0-40.0 [facility] ClinicPcjfwjtIVAJMDDGHL6803-26-98 11:50:00 Test Item Value Reference Range Interpretation Comments Segs (test code = Segs) 47.7 45.0-75.0 [facility] ClinicIhnhqqpIAZHTSHKCP2433-37-68 11:50:00 Test Item Value Reference Range Interpretation Comments MPV (test code = MPV) 7.2 7.4-10.4 [facility] ClinicQasvhcjBDNUCLPRGE4122-50-53 11:50:00 Test Item Value Reference Range Interpretation Comments Platelet (test code = Platelet) 301 133-450 [facility] ClinicQzgtmujVKITDESBTR9976-08-86 11:50:00 Test Item Value Reference Range Interpretation Comments RDW (test code = RDW) 22.6 11.5-14.5 [facility] ClinicBohusvrKSEGREDVAW7485-66-29 11:50:00 Test Item Value Reference Range Interpretation Comments Hct (test code = Hct) 30.2 36.0-48.0 [facility] [facility]ht[facility]QWWRQJDDVD1766[facility]79-22 11:50:00 Test Item Value Reference Range Interpretation Comments MCV (test code = MCV) 80.7 80.0-98.0 [facility] ClinicOehnppoZPUAPEVJBO7442-58-94 11:50:00 Test Item Value Reference Range Interpretation Comments MCH (test code = MCH) 25.3 pg 27.0-31.0 [facility] ClinicBbcqghfESRFCSGZQY4812-97-02 11:50:00 Test Item Value Reference Range Interpretation Comments MCHC (test code = MCHC) 31.3 32.0-36.0 [facility] ClinicGpkeylsGYHXGHXKEB3528-59-47 11:50:00 Test Item Value Reference Range Interpretation Comments WBC (test code = WBC) 7.2 3.7-10.4 [facility] ClinicBsiururZOSGOGUFYH2764-26-32 11:50:00 Test Item Value Reference Range Interpretation Comments RBC (test code = RBC) 3.74 4.20-5.40 [facility] ClinicUnnbbhrTYELXVDQMV1455-23-58 11:50:00 Test Item Value Reference Range Interpretation Comments Hgb (test code = Hgb) 9.5 12.0-16.0 [facility] TempleAbazhvnLJYAMFTQG7403-70-84 08:37:00 Test Item Value Reference Range Interpretation Comments AGAP (test code = AGAP) 12.0 10.0-20.0 N [facility] TempleOebawzeJRTZVAFOA2959-96-33 08:37:00 Test Item Value Reference Range Interpretation Comments B/C Ratio (test code = B/C Ratio) 13 6-25 N [facility] TempleTjnhcxnHJWWBVRJV5916-85-67 08:37:00 Test Item Value Reference Range Interpretation Comments Globulin (test code = Globulin) 2.3 2.0-4.0 N [facility] TempleRtjiifpJBOTXREFG9675-08-10 08:37:00 Test Item Value Reference Range Interpretation Comments A/G Ratio (test code = A/G Ratio) 1.3 0.7-1.6 N [facility] TempleQtwiorfLPJZIYUPK6686-87-66 08:37:00 Test Item Value Reference Range Interpretation Comments Alk Phos (test code = Alk Phos) 93 39-136 N [facility] TempleYsizkrtOHNJCOSAJ1649-02-96 08:37:00 Test Item Value Reference Range Interpretation Comments ALT (test code = ALT) 179 See_Comment H [Auto mated message] The system which ge nerated this result transmit lupe reference range : <=65. The reference range was not used to interpr et this result as mercedes l/abnormal. [facility] TempleZavklziYTCRSREYF1081-04-15 08:37:00 Test Item Value Reference Range Interpretation Comments Bili Total (test code = Bili Total) 0.5 0.2-1.3 N [facility] TempleMrdwhefZCVYGAHMT0569-79-39 08:37:00 Test Item Value Reference Range Interpretation Comments AST (test code = AST) 186 See_Comment H [Auto mated message] The system which ge nerated this result transmit lupe reference range : <=37. The reference range was not used to interpr et this result as mercedes l/abnormal. [facility] TempleZczmubqPETIIJOVW1828-89-77 08:37:00 Test Item Value Reference Range Interpretation Comments Sodium Lvl (test code = Sodium Lvl) 141 135-145 N [facility] TempleBtcvrjrQNPKQVTJB6549-98-43 08:37:00 Test Item Value Reference Range Interpretation Comments Creatinine Lvl (test code = Creatinine 0.6 0.5-1.4 N Lvl) [facility] TempleHvpuuacBCBYCGBBG2009-02-46 08:37:00 Test Item Value Reference Range Interpretation Comments Glucose Lvl (test code = Glucose Lvl) 78 70-99 N [facility] TempleUgbhkfvVUPMYCUIO8195-54-45 08:37:00 Test Item Value Reference Range Interpretation Comments BUN (test code = BUN) 8 7-22 N [facility] TempleEkxlvcnYMANJFKSZ1202-46-27 08:37:00 Test Item Value Reference Range Interpretation Comments Total Protein (test code = Total 5.4 6.4-8.4 L Protein) [facility] TempleSfcishxKUBBIXEOL0827-84-26 08:37:00 Test Item Value Reference Range Interpretation Comments Albumin Lvl (test code = Albumin Lvl) 3.1 3.5-5.0 L [facility] TempleIckwrrjOYEWZZPON7994-05-55 08:37:00 Test Item Value Reference Range Interpretation Comments Potassium Lvl (test code = Potassium 4.0 3.5-5.1 N Lvl) [facility] TempleHddpsdnWQELJGYLG3181-81-40 08:37:00 Test Item Value Reference Range Interpretation Comments Calcium Lvl (test code = Calcium Lvl) 8.1 8.5-10.5 L [facility] TempleIauxbuySRXAHWMVQ2339-41-87 08:37:00 Test Item Value Reference Range Interpretation Comments Chloride Lvl (test code = Chloride Lvl) 104 95-109 N [facility] TempleWnioftkTRGMDZGPN7655-72-77 08:37:00 Test Item Value Reference Range Interpretation Comments CO2 (test code = CO2) 29 24-32 N [facility] ClinicJlignxbESDRUGWYLT1975-65-50 08:37:00 Test Item Value Reference Range Interpretation Comments Eosinophils # (test code 0.1 See_Comment N [A utomated message] The = Eosinophils #) system whic h generated this result tra nsmitted reference range : <=0.5. The reference r patricio was not used to int erpret this result as normal/abnormal . [facility] ClinicBodriyeMSTGKPUCKD2977-18-24 08:37:00 Test Item Value Reference Range Interpretation Comments Monocytes # (test code 0.5 See_Comment N [Aut omated message] The = Monocytes #) system which generated this result tra nsmitted reference range : <=0.8. The reference r patricio was not used to int erpret this result as normal/abnormal . [facility] ClinicVmkslzlWHHJTADGZS5736-58-10 08:37:00 Test Item Value Reference Range Interpretation Comments Lymphocytes # (test code = Lymphocytes 0.8 1.0-5.5 L #) [facility] ClinicImkzhijAJXJDFTADZ1712-64-10 08:37:00 Test Item Value Reference Range Interpretation Comments Basophils (test code = 0.1 See_Comment N [Aut omated message] The Basophils) system which ge nerated this result tra nsmitted reference range : <=1.0. The reference r patricio was not used to int erpret this result as normal/abnormal . [facility] ClinicIjdgfnnEQNJTRBPUN1191-25-27 08:37:00 Test Item Value Reference Range Interpretation Comments Segs-Bands # (test code = Segs-Bands #) 7.2 1.5-8.1 N [facility] ClinicWaiazmtGSJWPPEYIS1482-06-68 08:37:00 Test Item Value Reference Range Interpretation Comments Segs (test code = Segs) 84.2 45.0-75.0 H [facility] ClinicFfajjteYNNDGJXWFK6531-07-36 08:37:00 Test Item Value Reference Range Interpretation Comments Lymphocytes (test code = Lymphocytes) 8.8 20.0-40.0 L [facility] ClinicGvdxmzvSHVTIQNPDG7990-50-61 08:37:00 Test Item Value Reference Range Interpretation Comments Eosinophils (test code = 0.8 See_Comment N [A utomated message] The Eosinophils) system which ge nerated this result tra nsmitted reference range : <=4.0. The reference r patricio was not used to int erpret this result as normal/abnormal . [facility] ClinicVdhpkzbHOLZJCYEIW9162-85-40 08:37:00 Test Item Value Reference Range Interpretation Comments Monocytes (test code = Monocytes) 6.1 2.0-12.0 N [facility] ClinicBhpatwySMPAWKNUPM7580-31-61 08:37:00 Test Item Value Reference Range Interpretation Comments Hct (test code = Hct) 30.4 36.0-48.0 L [facility] ClinicJdsgnziMCZKJUBJUF3862-58-49 08:37:00 Test Item Value Reference Range Interpretation Comments MCHC (test code = MCHC) 32.7 32.0-36.0 N [facility] ClinicClvqhfzUGROYWVRGN1816-05-09 08:37:00 Test Item Value Reference Range Interpretation Comments RDW (test code = RDW) 15.9 11.5-14.5 H [facility] ClinicCntwdzuNTNKYZVIWQ0759-98-73 08:37:00 Test Item Value Reference Range Interpretation Comments MCH (test code = MCH) 28.3 pg 27.0-31.0 N [facility] ClinicYrbdhwuJTVTVDNUTF7429-71-14 08:37:00 Test Item Value Reference Range Interpretation Comments MCV (test code = MCV) 86.5 81.0-99.0 N [facility] ClinicQaqcmrpCTVXCFKFOZ1866-37-43 08:37:00 Test Item Value Reference Range Interpretation Comments MPV (test code = MPV) 8.7 7.4-10.4 N [facility] ClinicYhkzyzcCLFESMPZFB0730-46-11 08:37:00 Test Item Value Reference Range Interpretation Comments Platelet (test code = Platelet) 163 133-450 N [facility] ClinicPdqchllBPQXYEAPAT2239-17-84 08:37:00 Test Item Value Reference Range Interpretation Comments WBC (test code = WBC) 8.6 3.7-10.4 N [facility] ClinicBihvbzoQUUGJATTQI0712-94-36 08:37:00 Test Item Value Reference Range Interpretation Comments Hgb (test code = Hgb) 10.0 12.0-16.0 L [facility]TuyubhjSFMSMSJETG5460-93-85 08:37:00 Test Item Value Reference Range Interpretation Comments RBC (test code = RBC) 3.52 4.20-5.40 L [facility]ballJob[facility] BJZEWWZ3744-80-31 22:00:00 Test Item Value Reference Range Interpretation Comments ABO/Rh (test code = ABO/Rh) O POS [facility] [employer] FXVWFUN2440-18-95 22:00:00 Test Item Value Reference Range Interpretation Comments Antibody Scrn (test Negative (08/24/2011 N code = Antibody Scrn) 17:00:00) [facility] TomballJiatzpqHNDQKVRUU5368-24-19 22:00:00 Test Item Value Reference Range Interpretation Comments CO2 (test code = CO2) 29 24-32 N [facility] TomballWzbwzhyGGGMWIVIE1211-70-56 22:00:00 Test Item Value Reference Range Interpretation Comments Chloride Lvl (test code = Chloride Lvl) 104 95-109 N [facility] TomballRrxrztjIGIJARIQO4870-24-26 22:00:00 Test Item Value Reference Range Interpretation Comments Sodium Lvl (test code = Sodium Lvl) 141 135-145 N [facility] TomballVnuidnhXZXBKCOIR1511-45-98 22:00:00 Test Item Value Reference Range Interpretation Comments Potassium Lvl (test code = Potassium 4.3 3.5-5.1 N Lvl) [facility] TomballFhjidgeYGNUPEJQY1022-14-72 22:00:00 Test Item Value Reference Range Interpretation Comments Alk Phos (test code = Alk Phos) 79 39-136 N [facility] TomballOimykbsMFPOWCFBK0501-46-66 22:00:00 Test Item Value Reference Range Interpretation Comments Bili Total (test code = Bili Total) 0.3 0.2-1.3 N [facility] TomballFnfsebfRWKNKHRAR1674-70-31 22:00:00 Test Item Value Reference Range Interpretation Comments Albumin Lvl (test code = Albumin Lvl) 3.9 3.5-5.0 N [facility] TomballNshexeqZECOTRKVT9292-10-88 22:00:00 Test Item Value Reference Range Interpretation Comments ALT (test code = ALT) 39 See_Comment N [Auto mated message] The system which ge nerated this result transmit lupe reference range : <=65. The reference range was not used to interpr et this result as mercedes l/abnormal. [facility] TempleSsuaratFRRZECYHB0573-96-42 22:00:00 Test Item Value Reference Range Interpretation Comments Calcium Lvl (test code = Calcium Lvl) 8.7 8.5-10.5 N [facility] TempleJrckrkiITEWZQDEE2163-78-47 22:00:00 Test Item Value Reference Range Interpretation Comments Total Protein (test code = Total 7.5 6.4-8.4 N Protein) [facility] TempleQvankzsUJMOTGPVD2828-46-57 22:00:00 Test Item Value Reference Range Interpretation Comments BUN (test code = BUN) 14 7-22 N [facility] TempleZnfojlpZTZUFSGCT5881-20-25 22:00:00 Test Item Value Reference Range Interpretation Comments Glucose Lvl (test code = Glucose Lvl) 85 [facility] TempleJislvejXHMKNKKYC9998-50-34 22:00:00 Test Item Value Reference Range Interpretation Comments Creatinine Lvl (test code = Creatinine 0.9 0.5-1.4 N Lvl) [facility] TempleZnldltkTHOLJSOFV3331-87-31 22:00:00 Test Item Value Reference Range Interpretation Comments AST (test code = AST) 27 See_Comment N [Auto mated message] The system which ge nerated this result transmit lupe reference range : <=37. The reference range was not used to interpr et this result as mercedes l/abnormal. [facility] TempleAhsfhjnMJIBLTICZ2621-74-81 22:00:00 Test Item Value Reference Range Interpretation Comments Globulin (test code = Globulin) 3.6 2.0-4.0 N [facility] TempleHqqizvkGGJZMEYDW3562-06-42 22:00:00 Test Item Value Reference Range Interpretation Comments AGAP (test code = AGAP) 12.3 10.0-20.0 N [facility] TempleFbjdwtzNWRWSUUMM4565-82-96 22:00:00 Test Item Value Reference Range Interpretation Comments B/C Ratio (test code = B/C Ratio) 16 6-25 N [facility] TempleXnpfshzMHLIMHFSO1051-87-73 22:00:00 Test Item Value Reference Range Interpretation Comments A/G Ratio (test code = A/G Ratio) 1.1 0.7-1.6 N [facility] ClinicEgqhgrsYQSHQNAZNE2887-79-92 22:00:00 Test Item Value Reference Range Interpretation Comments Basophils # (test code 0.0 See_Comment N [Aut omated message] The = Basophils #) system which generated this result tra nsmitted reference range : <=0.2. The reference r patricio was not used to int erpret this result as normal/abnormal . [facility] ClinicYbrqsgiCLQCBRDPDN0757-77-79 22:00:00 Test Item Value Reference Range Interpretation Comments Basophils (test code = 0.5 See_Comment N [Aut omated message] The Basophils) system which ge nerated this result tra nsmitted reference range : <=1.0. The reference r patricio was not used to int erpret this result as normal/abnormal . [facility] ClinicJeafkrgSTMMJANIGC5762-31-30 22:00:00 Test Item Value Reference Range Interpretation Comments Segs-Bands # (test code = Segs-Bands #) 5.2 1.5-8.1 N [facility] ClinicSotsahoHXELOPCKYS7309-01-64 22:00:00 Test Item Value Reference Range Interpretation Comments Eosinophils (test code = 0.7 See_Comment N [A utomated message] The Eosinophils) system which ge nerated this result tra nsmitted reference range : <=4.0. The reference r patricio was not used to int erpret this result as normal/abnormal . [facility] ClinicXuqehtrUQWNKKVHKD7236-21-01 22:00:00 Test Item Value Reference Range Interpretation Comments Lymphocytes (test code = Lymphocytes) 30.8 20.0-40.0 N [facility] ClinicUhxpwfwEPLWIYBTLP0618-36-50 22:00:00 Test Item Value Reference Range Interpretation Comments Monocytes (test code = Monocytes) 6.1 2.0-12.0 N [facility] ClinicXlkgmnyKZRUUOPFCB1793-79-94 22:00:00 Test Item Value Reference Range Interpretation Comments Eosinophils # (test code 0.1 See_Comment N [A utomated message] The = Eosinophils #) system whic h generated this result tra nsmitted reference range : <=0.5. The reference r patricio was not used to int erpret this result as normal/abnormal . [facility] ClinicTcfrweiVESWXSFAYL4656-18-80 22:00:00 Test Item Value Reference Range Interpretation Comments Monocytes # (test code 0.5 See_Comment N [Aut omated message] The = Monocytes #) system which generated this result tra nsmitted reference range : <=0.8. The reference r patricio was not used to int erpret this result as normal/abnormal . [facility] ClinicOnfchumRGHGJTDAJE1693-48-66 22:00:00 Test Item Value Reference Range Interpretation Comments Lymphocytes # (test code = Lymphocytes 2.6 1.0-5.5 N #) [facility] ClinicSkrhadqKMVBLZVQUL9494-97-81 22:00:00 Test Item Value Reference Range Interpretation Comments Segs (test code = Segs) 61.9 45.0-75.0 N [facility] ClinicHmttsavEIRJLBBYTK2544-49-59 22:00:00 Test Item Value Reference Range Interpretation Comments PTT (test code = PTT) 28.5 s 22.9-35.8 N [facility] ClinicQgytfneBPESMRHBXT5475-95-44 22:00:00 Test Item Value Reference Range Interpretation Comments PT (test code = PT) 12.3 s 12.0-14.7 N [facility] ClinicWezzlwiGZZWBTYQDJ9000-58-54 22:00:00 Test Item Value Reference Range Interpretation Comments INR (test code = INR) 0.91 0.85-1.17 N [facility] ClinicJtphtzyQWCLVNPXKZ3700-53-01 22:00:00 Test Item Value Reference Range Interpretation Comments RDW (test code = RDW) 15.9 11.5-14.5 H [facility] ClinicQfhgmsuHNZXVAZRQF8479-21-13 22:00:00 Test Item Value Reference Range Interpretation Comments MCHC (test code = MCHC) 33.1 32.0-36.0 N [facility] ClinicRvrvskgNPHVSNJDDB3113-74-51 22:00:00 Test Item Value Reference Range Interpretation Comments MCH (test code = MCH) 28.1 pg 27.0-31.0 N [facility] ClinicIzwlfxlHYLYFZOGUA9442-14-89 22:00:00 Test Item Value Reference Range Interpretation Comments Platelet (test code = Platelet) 244 133-450 N [facility] ClinicTcqsotdVXQQMPYQXJ6696-84-24 22:00:00 Test Item Value Reference Range Interpretation Comments MPV (test code = MPV) 8.1 7.4-10.4 N [facility] ClinicNsqpomsYMLVMBUXYR0351-55-74 22:00:00 Test Item Value Reference Range Interpretation Comments Hgb (test code = Hgb) 12.3 12.0-16.0 N [facility] ClinicJbbdvqnGPCNJRWDJY9423-01-42 22:00:00 Test Item Value Reference Range Interpretation Comments Hct (test code = Hct) 37.1 36.0-48.0 N [facility]IylwfzhOJSKZUNPQJ0803-62-36 22:00:00 Test Item Value Reference Range Interpretation Comments WBC (test code = WBC) 8.4 3.7-10.4 N [facility] HospitalVuvqfzhJVYBJQWJKT8146-17-67 22:00:00 Test Item Value Reference Range Interpretation Comments RBC (test code = RBC) 4.37 4.20-5.40 N [facility]SygzzltEKQASQFGBX5871-59-68 22:00:00 Test Item Value Reference Range Interpretation Comments MCV (test code = MCV) 84.8 81.0-99.0 N [facility] HospitalXtvnmlyEWJVXRQPYN8992-27-57 22:00:00 Test Item Value Reference Range Interpretation Comments HIV 1/2 Ab (test code Negative *NA*(08/24/2011 = HIV 1/2 Ab) [facility]:00:00[facility]DN[facility]MWMIXEY6843[facility] 21:20:00 Test Item Value Reference Range Interpretation Comments UA Urobilinogen (test code *NA*(08/24/2011 0.1-1.0 = UA Urobilinogen) 16:20:00) [facility] HospitalBwwfbedQYLYIVQETH4202-21-21 21:20:00 Test Item Value Reference Range Interpretation Comments UA Ketones (test code Negative mg/dL = UA Ketones) *NA*(08/24/2011 16:20:00) [facility] HospitalJerxlagYEYAJRXTON0544-33-05 21:20:00 Test Item Value Reference Range Interpretation Comments UA Protein (test code Negative mg/dL N = UA Protein) (08/24/2011 16:20:00) [facility] HospitalUafhsdhQAFLIJVDDK8318-02-33 21:20:00 Test Item Value Reference Range Interpretation Comments UA Glucose (test code Negative mg/dL = UA Glucose) *NA*(08/24/2011 16:20:00) [facility] HospitalRoyullqZDLFLHZNYU5915-11-73 21:20:00 Test Item Value Reference Range Interpretation Comments UA Blood (test code = Negative (08/24/2011 N UA Blood) 16:20:00) [facility] HospitalAobegamLLPUAUDGJO7626-83-83 21:20:00 Test Item Value Reference Range Interpretation Comments UA Bili (test code = Negative *NA*(08/24/2011 UA Bili) 16:20:00) [facility] HospitalRsglvcfKTTSDBFMSO9276-51-11 21:20:00 Test Item Value Reference Range Interpretation Comments Micro? (test code = Not Indicated Micro?) *NA*(08/24/2011 16:20:00) [facility]DVQILAJMFF8040-[facility] 21:20:00 Test Item Value Reference Range Interpretation Comments UA Turbidity (test code = Clear (08/24/2011 N UA Turbidity) 16:20:00) [facility]PeqctyeMIPMVBNFWJ2974-91-23 21:20:00 Test Item Value Reference Range Interpretation Comments UA Color (test code = Yellow *NA*(08/24/2011 UA Color) 16:20:00) [facility]IirytjnHEOTOIWSOR6209-45-72 21:20:00 Test Item Value Reference Range Interpretation Comments UA pH (test code = UA pH) 6.5 5.0-8.0 N [facility] HospitalHyrsedmGSQJCDAALV4657-84-10 21:20:00 Test Item Value Reference Range Interpretation Comments UA Spec Grav (test code = UA Spec Grav) 1.012 N [facility] HospitalRshzdbsYHVZMHSBWC6809-15-01 21:20:00 Test Item Value Reference Range Interpretation Comments UA Leuk Est (test Negative (08/24/2011 N code = UA Leuk Est) 16:20:00) [facility] HospitalUxlcqxzIVMJKMZJQL7619-29-35 21:20:00 Test Item Value Reference Range Interpretation Comments UA Nitrite (test code Negative (08/24/2011 N = UA Nitrite) 16:20:00) [facility]
[2021-05-24] MEDS ORDERED: ALTEPLASE 2 MG/VIAL IV ONE ×2 (15:45→16:03)
[2021-05-24] MEDS ORDERED: WATER FOR INJ,STERILE 10 ML ONE (15:48)
--- NOTE | 2021-05-24 16:51 | EDPHYS ---
Physician Documentation [facility] Name: Lucrecia Vargas Age: 61 yrs Sex: Female : 1960 Arrival Date: 05/24/2021 Time: 12:18 Bed 8 Private MD: Elliot Hdz V ED Physician Shaan Marte HPI: 05/24 16:48 This 61 yrs old Unknown Female presents to ER via Ambulatory with complaints of blocked jr8 port cath. 16:48 Patient stated that she had recent dressing change by her home health nurse. Since then jr8 port has not been flowing and needs to do her antibiotic administration. Denies any other symptoms at this time.. Historical: - Allergies: 12:46 No Known Allergies; ll1 - PMHx: 12:46 acid reflux; Hypertension; Endometriosis; Depression; Rheumatoid Arthritis; Sjogren's ll1 Syndrome; - PSHx: 12:46 6 hip replacments SX; ll1 - Immunization history:: Client reports receiving the 2nd dose of the Covid vaccine. - Social history:: Smoking status: Patient denies any tobacco usage or history of. ROS: 16:48 Eyes: Negative for injury, pain, redness, and discharge, ENT: Negative for injury, jr8 pain, and discharge, Neck: Negative for injury, pain, and swelling, Cardiovascular: Negative for chest pain, palpitations, and edema, Respiratory: Negative for shortness of breath, cough, wheezing, and pleuritic chest pain, Abdomen/GI: Negative for abdominal pain, nausea, vomiting, diarrhea, and constipation, Back: Negative for injury and pain, MS/Extremity: Negative for injury and deformity, Skin: Negative for injury, rash, and discoloration, Neuro: Negative for headache, weakness, numbness, tingling, and seizure. Exam: 16:48 Constitutional: This is a well developed, well nourished patient who is awake, alert, jr8 and in no acute distress. Cardiovascular: Regular rate and rhythm with a normal S1 and S2. No gallops, murmurs, or rubs. Normal PMI, no JVD. No pulse deficits. Respiratory: Lungs have equal breath sounds bilaterally, clear to auscultation and percussion. No rales, rhonchi or wheezes noted. No increased work of breathing, no retractions or nasal flaring. 16:48 Skin: Warm, dry with normal turgor. Normal color with no rashes, no lesions, and no evidence of cellulitis. MS/ Extremity: Pulses equal, no cyanosis. Neurovascular intact. Full, normal range of motion. Neuro: Awake and alert, GCS 15, oriented to person, place, time, and situation. Cranial nerves II-XII grossly intact. Motor strength 5/5 in all extremities. Sensory grossly intact. 16:48 Chest/axilla: Right PICC line placed at the second intercostal space. It is noted that the PICC line is kinked at the mid segment.. Vital Signs: 12:43 BP 130 / 94; Pulse 56; Resp 17; Temp 97.0; Pulse Ox 92% ; Weight 58.97 kg; Height 5 ft. ll1 6 in. (167.64 cm); Pain 7/10; 12:43 Body Mass Index 20.98 (58.97 kg, 167.64 cm) ll1 MDM: 15:32 Patient medically screened. jr8 16:48 Data reviewed: vital signs, nurses notes, and as a result, I will discharge patient. jr8 Data interpreted: Pulse oximetry: on room air is 93 %. Interpretation: acceptable. Counseling: I had a detailed discussion with the patient and/or guardian regarding: the historical points, exam findings, and any diagnostic results supporting the discharge/admit diagnosis, the need for outpatient follow up, a family practitioner, to return to the emergency department if symptoms worsen or persist or if there are any questions or concerns that arise at home. ED course: After unkinking patient's PICC line. Patient now has normal flow through both of her ports. Cathflo was not needed at this time and will have her follow-up with her home health.. Administered Medications: 16:57 Not Given (Line kinked not clottedd): Cathflo Activase 2 mg IV Thrombolytics once; into jl7 each catheter lumen, may repeat once Disposition Summary: 05/24/21 16:51 Discharge Ordered Location: Home jr8 Problem: new jr8 Symptoms: have improved jr8 Condition: Stable jr8 Diagnosis - Mechanical complications of PICC line jr8 Followup: jr8 - With: Elliot Hdz MD - When: 2 - 3 days - Reason: Recheck today's complaints, Continuance of care, Re-evaluation by your physician Discharge Instructions: - Discharge Summary Sheet jr8 - PICC Home Care Guide jr8 Forms: - Medication Reconciliation Form jr8 - Thank You Letter jr8 - Antibiotic Education jr8 - Prescription Opioid Use jr8 Addendum: 05/27/2021 07:17 Co-signature as Attending Physician, Shaan Marte MD I agree with the assessment and r n plan of care. Attestation: The patient's history, exam findings, diagnostics, and a summary of any interventions or procedures was reviewed in detail with Chris LOPEZ. Signatures: Shaan Marte MD MD rn Roszak, Josh, PA PA jr8 Annmarie Sifuentes RN RN ll1 Michelle Mccullough RN jl7
--- NOTE | 2021-05-24 16:51 | ER ---
Nurse's Notes [facility] Name: Lucrecia Vargas Age: 61 yrs Sex: Female : 1960 Arrival Date: 05/24/2021 Time: 12:18 Bed 8 Private MD: Elliot Hdz V Diagnosis: Mechanical complications of PICC line Presentation: 05/24 12:43 Chief complaint: Patient states: R chest nila cath clogged since last night. Unable to ll1 infuse or draw back blood. States she is here for cath flow by [facility]. Coronavirus screen: Vaccine status: Patient reports receiving the 2nd dose of the covid vaccine. Client denies travel out of the [place] in the last 14 days. At this time, the client does not indicate any symptoms associated with coronavirus-19. Ebola Screen: Patient denies travel to an Ebola-affected area in the 21 days before illness onset. Initial Sepsis Screen: Does the patient meet any 2 criteria? No. Patient's initial sepsis screen is negative. Does the patient have a suspected source of infection? Yes: Bone or joint infection. Risk Assessment: Do you want to hurt yourself or someone else? Patient reports no desire to harm self or others. Onset of symptoms was May 23, 2021. 12:43 Method Of Arrival: Ambulatory ll1 12:43 Acuity: ROSARIO 3 ll1 Historical: - Allergies: 12:46 No Known Allergies; ll1 - PMHx: 12:46 acid reflux; Hypertension; Endometriosis; Depression; Rheumatoid Arthritis; Sjogren's ll1 Syndrome; - PSHx: 12:46 6 hip replacments SX; ll1 - Immunization history:: Client reports receiving the 2nd dose of the Covid vaccine. - Social history:: Smoking status: Patient denies any tobacco usage or history of. Screenin:57 Abuse screen: Denies threats or abuse. Denies injuries from another. Nutritional jl7 screening: No deficits noted. Tuberculosis screening: No symptoms or risk factors identified. Fall Risk None identified. Assessment: 16:57 Reassessment: Pt's PICC noted to be kinked, line unkinked, flushes easily, new central jl7 line dressing applied using sterile technique. Vital Signs: 12:43 BP 130 / 94; Pulse 56; Resp 17; Temp 97.0; Pulse Ox 92% ; Weight 58.97 kg; Height 5 ft. ll1 6 in. (167.64 cm); Pain 7/10; 12:43 Body Mass Index 20.98 (58.97 kg, 167.64 cm) ll1 ED Course: 12:18 Patient arrived in ED. am2 12:19 Elliot Hdz MD is Private Physician. am2 12:46 Triage completed. ll1 12:47 Arm band placed on. ll1 15:32 Chris Greer PA is PHCP. jr8 15:32 Shaan Marte MD is Attending Physician. jr8 15:40 Michelle Mccullough RN is Primary Nurse. jl7 16:50 Elliot Hdz MD is Referral Physician. jr8 16:57 Patient has correct armband on for positive identification. jl7 16:57 No provider procedures requiring assistance completed. Patient did not have IV access jl7 during this emergency room visit. Administered Medications: 16:57 Not Given (Line kinked not clottedd): Cathflo Activase 2 mg IV Thrombolytics once; into jl7 each catheter lumen, may repeat once Outcome: 16:51 Discharge ordered by . jr8 16:57 Discharged to home ambulatory. jl7 16:57 Condition: stable 16:57 Discharge instructions given to patient, Instructed on discharge instructions, follow up and referral plans. Demonstrated understanding of instructions, follow-up care. 17:18 Patient left the ED. obando Signatures: Chris Greer PA PA jr8 Michelle Mccullough RN RN jl7 Marianna Herbert am2 Annmarie Sifuentes RN RN ll1 Tana-StagerJuliana
[2021-05-24 17:23] VITALS: BP 130/94; TEMP 97; O2SAT 92
== END 2021-05-24 17:18 | disposition home or self-care (01) ==
LOC: ER 12:10
DX: T82.594A Other mechanical complication of infusion catheter, initial encounter (principal); I10 Essential (primary) hypertension; F32.A Depression, unspecified; M06.9 Rheumatoid arthritis, unspecified; M35.00 Sjogren syndrome, unspecified
CPT/HCPCS: 99281; J2997

== ENCOUNTER 2022-05-20 13:16 | Emergency (ER) | payer OTHER ==
--- OUTSIDE RECORDS SUMMARY | 2022-05-20 13:23 | XMS REPORT | Continuity of Care Document ---
:1960 Author Organization [facility] t Address [address] [place] [address] [place] [address] Care Team Providers Name Role Phone Kameron Mondragon Attending Clinician Unavailable REX OHARA Attending Clinician Unavailable TIFFANIE LEONG Attending Clinician Unavailable ISRAEL KONG Attending Clinician Unavailable MARTHA_Henry_ Attending Clinician Unavailable YVETTE FIELD Attending Clinician Unavailable Lizz Freitas Attending Clinician [phone] KAREN HUNTER Attending Clinician Unavailable MD REX OHARA Attending Clinician Unavailable JING BURNETTE Attending Clinician Unavailable DO ANTHONY LOPEZ Attending Clinician Unavailable ANISH TEJEDA Attending Clinician Unavailable YANET MONTEZ Attending Clinician Unavailable MD YANET MONTEZ Attending Clinician Unavailable MD TUTU GRAHAM Attending Clinician Unavailable TARA LINDSEY Attending Clinician Unavailable MD TARA LINDSEY Attending Clinician Unavailable ASHLEY BEYRE Attending Clinician Unavailable MD ASHLEY BEYER Attending Clinician Unavailable Antwan Nguyen Attending Clinician Unavailable Annalisa Cortez Attending Clinician Doctor Unassigned, [place] Attending Clinician Unavailable MARÍA GARCIA Attending Clinician Unavailable JESSICA PAZ Attending Clinician Unavailable Ihekweazu, Ugonna N Admitting Clinician Unavailable Physician, No Primary or Family Admitting Clinician Unavaila myriam THOMAS_Marly_Cisco_ Admitting Clinician Unavailable YVETTE FIELD Admitting Clinician Unavailable REX OHARA Admitting Clinician Unavailable MD REX OHARA Admitting Clinician Unavailable ANTHONY LOPEZ Admitting Clinician Unavailable DO ANTHONY LOPEZ Admitting Clinician Unavailable TUTU GRAHAM Admitting Clinician Unavailable YANET MONTEZ Admitting Clinician Unavailable MD YANET MONTEZ Admitting Clinician Unavailable MD TUTU GRAHAM Admitting Clinician Unavailable TARA LINDSEY Admitting Clinician Unavailable MD TARA LINDSEY Admitting Clinician Unavailable MERCED SMITH Admitting Clinician Unavailable ASHLEY BEYER Admitting Clinician Unavailable MD ASHLEY BEYER Admitting Clinician Unavailable ANGELIQUE LEWIS Admitting Clinician Unavailable MD ANGELIQUE LEWIS Admitting Clinician Unavailable JESSICA PAZ Admitting Clinician Unavailable Payers Payer Name Policy Type Policy Number Effective Date Expiration Date S laura [facility] [id number] 2000 00:00:00 [facility] [id number] 2017 00:00:00 Problems Condition Condition Condition Status Onset Resolution Last Treating Co mments Source Name Details Category Date Date Treatment Clinician Date 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 spondyloli Spondyloli 0-20 Or thope sthesis sthesis 00:00: dic 00 Sports Medicin e Bacterial Bacterial Problem Active Aza philly infection Infection 6-21 Orth ope due to Due to 00:00: dic Pseudomona Pseudomona 00 Sp orts s s Medicin e Prosthetic Prosthetic Problem Active A zalea joint Joint 6-21 Orthope infection Infection 00:00: dic 00 Sports Medicin e Instabilit Instabilit Problem Active A zalea y of joint y of Joint 5-04 Or thope of pelvis of Pelvis 00:00: dic 00 Sports Medicin e Revision Revision Problem Active Azale a of hip of Hip 5-04 Orthope replacemen Replacemen 00:00: di c t t 00 Sports Medicin e Osteoarthr Osteoarthr Problem Active 2019-06 A zalea itis of itis of 2-14 Orthope foot joint Foot Joint 00:00: di c 00 Sports Medicin e Mechanical Mechanical Problem Active 2019-06 A zalea complicati Complicati 1-13 Or thope on of on of 00:00: dic internal Internal 00 Sports orthopedic Orthopedic Me dicin device, Device, e implant Implant AND/OR AND/OR graft Graft Patellofem Patellofem Problem Active A zalea oral oral 9-28 Orthope osteoarthr Osteoarthr 00:00: di c itis itis 00 Sports Medicin e Intertroch Intertroch Problem Active A zalea anteric anteric 9-28 Orthope fracture Fracture 00:00: dic 00 Sports Medicin e Closed Closed Problem Active Khushbu fracture Fracture 9-03 Orthop e of of 00:00: dic metatarsal Metatarsal 00 Sp orts bone of Bone of Medicin right foot Right Foot e 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 8-17 Or thope e raised e Raised 00:00: dic Sports Medicin e History of History of Problem Active A zalea fracture Fracture 7-30 Orthop e 00:00: dic 00 Sports Medicin e Administra Administra Problem Active A zalea tion of tion of 7-30 Orthope steroid Steroid 00:00: dic 00 Sports Medicin e Stress Stress Problem Active Khushbu fracture Fracture 7-27 Orthop e of of 00:00: dic navicular Navicular 00 Spor ts bone of Bone of Medicin foot Foot e Major Major Problem Active Khushbu depressive Depressive 1-03 Or thope disorder Disorder 00:00: dic 00 Sports Medicin e Panic Panic Problem Active Khushbu disorder Disorder 1-03 Orthop e without without 00:00: dic agoraphobi Agoraphobi 00 Sp orts a a Medicin e Inflammati Inflammati Problem Active A miguel angel on of on of 1-03 Orthope rotator Rotator 00:00: dic cuff Cuff 00 Sports tendon Tendon Medicin e Impingemen Impingemen Problem Active A miguel angel t syndrome t Syndrome 1-03 Or thope of of 00:00: dic shoulder Shoulder 00 Sports region Region Medicin e Winged Winged Problem Active Khushbu scapula Scapula 1-03 Orthope 00:00: dic 00 Sports Medicin e Pain of Pain of Problem Active Khushbu left Left 1-03 Orthope shoulder Shoulder 00:00: dic joint Joint 00 Sports Medicin e Hyperphosp Hyperphosp Problem Active A lazaromicahelluiz hatemia hatemia 828 Orthope 00:00: dic 00 Sports Medicin e Hypogammag Hypogammag Problem Active A miguel angel lobulinemi lobulinemi 8 Or thope a a 00:00: dic 00 Sports Medicin e Vitamin D Vitamin D Problem Active Aza philly deficiency Deficiency 718 Or thope 00:00: dic 00 Sports Medicin e Mixed Mixed Problem Active Khushbu anxiety Anxiety 7-18 Orthope and and 00:00: dic depressive Depressive 00 Sp orts disorder Disorder Medici n e Hypertensi Hypertensi Problem Active A miguel angel santos ve 7-18 Orthope disorder Disorder 00:00: dic 00 Sports Medicin e Gastroesop Gastroesop Problem Active A miguel angel hageal hageal 7-18 Orthope reflux Reflux 00:00: dic disease Disease 00 Sports Medicin e Postsurgic Postsurgic Problem Active A miguel angel al al 7-18 Orthope menopause Menopause 00:00: dic 00 Sports Medicin e Foot pain Foot Pain Problem Active Chace philly 7-18 Orthope 00:00: dic 00 Sports Medicin e Osteopenia Osteopenia Problem Active A lazarolea 7-18 Orthope 00:00: dic 00 Sports Medicin e Family Family Problem Active Khushbu history of History of 7 Or ope stroke Stroke 00:00: dic 00 Sports Medicin e Patient Patient Problem Active Khushbu care Care 718 Orthope statuses Statuses 00:00: dic 00 Sports Medicin e Seronegati Seronegati Problem Active A miguel angel santos ve 4-09 Orthope rheumatoid Rheumatoid 00:00: di c arthritis Arthritis 00 Spor ts Medicin e Complicati Complicati Problem Active Luiz michelle on of on of 1-21 Orthope internal Internal 00:00: dic prosthetic Prosthetic 00 Sp orts device Device Medicin e Pain in Pain in Problem Active Khushbu right hip Right Hip 02-07 Orth ope joint Joint 00:00: dic 00 Sports Medicin e Arthralgia Arthralgia Problem Active A lazarolea of the of the 11-18 Orthope ankle Ankle 00:00: dic and/or And/or 00 Sports foot Foot Medicin e Pain due Pain Due Problem Active Azale a to to 11-18 Orthope internal Internal 00:00: dic prosthetic Prosthetic 00 Sp orts device Device Medicin e Pseudarthr Pseudarthr Problem Active A 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 osis after 11-18 Or thope fusion or Fusion or 00:00: dic arthrodesi Arthrodesi 00 Sp orts s s Medicin e Degenerati Degenerati Problem Active A zalea ve joint ve Joint 530 Orthop e disease Disease 00:00: dic involving Involving 00 Spor ts multiple Multiple Medici n joints Joints e Numbness Numbness Problem Active Azale a of hand of Hand 11-06 Orthope 00:00: dic 00 Sports Medicin e Replacemen Replacemen Problem Active A zalea t of total t of Total 11-01 Or ope knee joint Knee Joint 00:00: di c 00 Sports Medicin e Lumbosacra Lumbosacra Problem Active A lazarolea l l 2-23 Orthope spondylosi Spondylosi 00:00: di c s with s with 00 Sports radiculopa Radiculopa Me dicin thy thy e Acquired Acquired Problem Active Azale a scoliosis Scoliosis 2-23 Orth ope 00:00: dic 00 Sports Medicin e Spondyloli Spondyloli Problem Active A lazarolea sthesis sthesis 2-23 Orthope 00:00: dic 00 Sports Medicin e Rheumatoid Rheumatoid Problem Active 2016-06 A zalea arthritis Arthritis 2-18 Orth ope - ankle - Ankle 00:00: dic and/or And/or 00 Sports foot Foot Medicin e Contractur Contractur Problem Active 2016-06 A miguel angel e of e of 1-06 Orthope Achilles Achilles 00:00: dic tendon Tendon 00 Sports Medicin e Subluxatio Subluxatio Problem Active 2016-06 A miguel angel n of foot n of Foot - Orth ope joint Joint 00:00: dic 00 Sports Medicin e LUMBAR LUMBAR Diagnosis Active 2016-08-14 Me vidal HERNIATED HERNIATED 2- 07:03:00 l DISC DISC 00:00: Vince Active 00 08/06/2016 [facility] M54.16 - M54.16 - Diagnosis Active 2015-062016-05-19 Memoria "RADICULOP "RADICULOP 0-24 16:22:00 l ATHY, ATHY, 00:01: [place] LUMBAR LUMBAR 00 REGION" REGION" Active 04/02/2016 RACHELLE [place] Localized, Localized, Problem Active 2015-06 A zalea primary Primary 0-12 Orthope osteoarthr Osteoarthr 00:00: di c itis itis 00 Sports Medicin e HERNIATED HERNIATED Diagnosis Active 2016-08-28 Memoria DISCS DISCS 8-24 18:04:00 l Active 00:00: [place] 02/01/2016 00 [facility] Anemia Anemia Problem Active Khushbu 6-20 Orthope 00:00: dic 00 Sports Medicin e Osteoarthr Osteoarthr Problem Active A zalea itis of itis of 6-20 Orthope knee Knee 00:00: dic 00 Sports Medicin e Cervical Cervical Problem Active Azale a spondylosi Spondylosi 6-20 Or thope s s 00:00: dic 00 Sports Medicin e M25.561 - M25.561 - Diagnosis Active 2014-062015-05-17 Memoria PAIN IN PAIN IN -20 12:44:00 l RIGHT KNEE RIGHT KNEE 00:01: He rmann Active 00 04/29/2015 [facility] [place] Rheumatoid Rheumatoid Problem Active A zalea arthritis Arthritis 2-12 Orth ope 00:00: dic 00 Sports Medicin e GERD,[id number] [id number] Diagnosis Active 2012-12-02 Memoria 5 Active - 10:06:00 l 11/27/2012 00:00: Tomy macias 00 [facility] GASTROGAST GASTROGAS Diagnosis Active 2011-08-30 Memoria DWIGHT TRIC 3-14 15:24:00 l FISTULA FISTULA 00:00: [place] Active 00 08/22/2011 [facility] Anxiety Anxiety Problem Active 2017-11-26 Me vidal (finding) (finding) 06-10 13:22:41 l Active 00:00: [place] 06/10/2011 00 Problem 11/26/2017 Medical Group,[facility] her Neuro,[facility], RACHELLE Clarke,[facility] Anxiety Anxiety Problem Active 2012-12-04 Me moria Active 06-10 20:55:13 l 06/10/2011 00:00: Tomy n Problem 00 12/04/2012 RACHELLE Clarke,[facility] GERD GERD Diagnosis Active 2010-062011-06-12 Mem oria 530.11 530.11 09:55:00 l Active 00:00: [place] 06/07/2011 00 [facility] Scoliosis, Scoliosis Problem 2017-11-25 Memoria unspecifie , 14:11:46 l d unspecifie Tomy n d 11/25/2017 [facility] Low back Low back Problem 2017-11-25 Memoria pain pain 14:11:46 l 11/25/2017 Tomy macias [facility] Radiculopa Radiculop Problem 2017-11-25 Memoria thy, athy, 14:11:46 l lumbar lumbar [place] region region 11/25/2017 [facility] Other Other Problem 2017-11-25 Memor ia specified specified 14:11:46 l disorders disorders Herm cielo of bone of bone density density and and structure, structure, other site other site 8 [facility] Ankylosing Ankylosin Problem Resolve 2017-11-26 Memoria spondyliti g d 13:22:41 l s spondyliti Tomy n (disorder) s (disorder) Resolved Problem 11/26/2017 Medical Group,[facility] her Neuro,[facility], OPIShannon Clarke,[facility] Endometrio Endometri Problem Resolve 2017-11-26 Memoria sis osis d 13:22:41 l (disorder) (disorder) He rmann Resolved Problem 11/26/2017 Medical Group,[facility] her Neuro,[facility], OPIShannon Clarke,[facility] Ankylosing Ankylosin Problem Resolve 2012-12-04 Memoria spondyliti g d 20:55:13 l s spondyliti Tomy n s Resolved Problem 12/04/2012 [facility] Endometrio Endometri Problem Resolve 2012-12-04 Memoria sis osis d 20:55:13 l Resolved Vince Problem 12/04/2012 [facility] Abdominal Abdominal Problem Active 2017-11-26 Memoria pain pain 13:22:41 l (finding) (finding) Herm cielo Active Problem 11/26/2017 Medical Group,[facility] her Neuro,[facility], [facility] [place], [facility], [facility] [place] Depressive Problem Active 2017-11-26 M emoria disorder Depressive 13:22:41 l (disorder) disorder Herm cielo (disorder) Active Problem 11/26/2017 Medical [facility] her Neuro,[facility], [facility] [place], [facility], [facility] [place] History of History Problem Active 2017-11-26 Memoria - of - 13:22:41 l arthrodesi arthrodesi He jeannine s s (context-d (context-d ependent ependent category) category) Active Problem 11/26/2017 Medical Group,[facility] her Neuro,[facility], [facility] [place], [facility], [facility] [place] Pain Pain Problem Active 2017-11-26 Memor ia (finding) (finding) 13:22:41 l Active [place] Problem 11/26/2017 Medical Group,[facility] her Neuro,[facility], [facility] [place], [facility], [facility] [place] Prolapsed Prolapsed Problem Active 2017-11-26 Memoria lumbar lumbar 13:22:41 l interverte interverte Mohamud paez bral disc bral disc (disorder) (disorder) Active Problem 11/26/2017 Medical Group,[facility] her Neuro,[facility], [facility] [place], [facility], [facility] [place] Rectal Rectal Problem Active 2017-11-26 Teofilo osiris hemorrhage hemorrhage 13:22:41 l (disorder) (disorder) He rmann Active Problem 11/26/2017 Medical Group,[facility] her Neuro,[facility], OP[facility] [place], [facility], [facility] [place] Reflux Reflux Problem Active 2017-11-26 Teofilo osiris (finding) (finding) 13:22:41 l Active [place] Problem 11/26/2017 Medical Group,Misc her Neuro,[facility], RACHELLE Clarke,[facility], RACHELLE [place] Reflux Reflux Problem Active 2012-12-04 Teofilo osiris Active 20:55:13 l Problem [place] 12/04/2012 [facility] Abdominal Abdominal Problem Active 2012-12-04 Memoria pain pain 20:55:13 l Active [place] Problem 12/04/2012 [facility] Depression Depressio Problem Active 2012-12-04 Memoria n Active 20:55:13 l Problem [place] 12/04/2012 [facility] Pain Pain Problem Active 2012-12-04 Memor ia Active 20:55:13 l Problem [place] 12/04/2012 RACHELLE Clarke,[facility] Rectal Rectal Problem Active 2012-12-04 Teofilo osiris bleeding bleeding 20:55:13 l Active [place] Problem 12/04/2012 [facility] Rheumatoid Rheumatoi Problem Active 2012-12-04 Memoria arthritis d 20:55:13 l arthritis Vince Active Problem 12/04/2012 [facility] ADMINISTRT ADMINISTR Diagnosis Active 2011-08-30 Memoria VE ENCOUNT TVE 15:24:00 l NOS ENCOUNT [place] NOS Active [facility] OTHER 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-28 Mem oria 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:00 l CONGENITAL CONGENITAL He rmann DEFORMITIE DEFORMITIE S S Active [facility] History of Past Illness Condition Condition Condition Status Onset Resolution Last Treating Co mments Source Name Details Category Date Date Treatment Clinician Date Sacrococcy Sacrococc Problem 2017-2017-11-25 2017-11-25 Memoria mojgan krishnanal 3-17 14:11:46 14:11:46 l disorders, disorders, 04:39: He rmann not not 49 elsewhere elsewhere classified classified 08/24/2017 11/25/2017 RACHELLE Keith Allergies, Adverse Reactions, Alerts Allergy Allergy Status Severity Reaction(s) Onset Inactive Treating Comm ents Source Name Type Date Date Clinician No Known DA Active [facility]02 Clear Allergie 00:00: Sahu s 00 [facility] No Known DA Active [facility] 11-02 Clear Allergie 00:00: Sahu s 00 [facility] No Known DA Active [facility]-31 [facility] No Known DA Active [facility] 5-31 [facility] 00 l [facility] No Known DA Active [facility] Allergie 6-15 [place] s 00:[facility]: Orthope 00 dic Hospita l NO KNOWN Drug Active Univers ALLERGIE Class [facility]y [facility] Social History Social Habit Start Date Stop Date Quantity Comments Source Social History 2017-04-29 2017-04-29 [facility] Asiya shruti 16:25:18 16:25:18 Smoking Status Start Date Stop Date Source Never Smoker Khush[facility] Medications Ordered Filled Start Stop Current Ordering Indication Dosage Frequency Signature Comments Components Source Medication Medication Date Date Medication? Clinician (SIG) Name Name leflunomide leflunomide No leflunomid Khushbu 10 mg 10 mg 9-17 e 10 mg Orthope tablet TAKE tablet TAKE 00:00: tablet dic 1 TABLET BY 1 TABLET BY 00 TAKE 1 Sports MOUTH EVERY MOUTH EVERY TABLET BY Medicin DAY DAY MOUTH e EVERY DAY leflunomide leflunomide No leflunomid Khushbu 10 mg 10 mg 9-17 e 10 mg Orthope tablet TAKE tablet TAKE 00:00: tablet dic 1 TABLET BY 1 TABLET BY 00 TAKE 1 Sports MOUTH EVERY MOUTH EVERY TABLET BY Medicin DAY DAY MOUTH e EVERY DAY duloxetine duloxetine No duloxetine Khushbu 60 mg 60 mg 7-18 60 mg Orthope capsule,del capsule,del 00:00: capsule,de dic ayed ayed 00 layed Sports release 1 release 1 release 1 Medicin by mouth by mouth by mouth e once a day once a day once a day losartan losartan No losartan A zalea 100 mg 100 mg 7-18 100 mg Orthope tablet 1 by tablet 1 by 00:00: tablet 1 dic mouth once mouth once 00 by mouth Sports a day a day once a day Medicin e mirtazapine mirtazapine No mirtazapin Khushbu 7.5 mg 7.5 mg 6-25 e 7.5 mg Orthope tablet Take tablet Take 00:00: tablet dic 1 tablet by 1 tablet by 00 Take 1 Sports mouth every mouth every tablet by Medicin night night mouth e every night pregabalin Yes 100 mg = 2 M emoria 50 MG Oral 1-31 cap, PO, l Capsule 14:03: TID, # 180 Herm cielo [Lyrica] 00 cap, 2 Refill(s), called to pharmacy pregabalin No 100 mg = 2 M emoria 50 MG Oral 1-30 cap, PO, l Capsule 20:59: TID, # 180 Herm cielo [Lyrica] 00 cap, 1 Refill(s), called to pharmacy [facility] 2016-06 Yes 1 - 2 tab, Memoria en 300 MG / 2-28 PO, Q6H, l Codeine 20:39: PRN Pain, Dolores nn Phosphate 00 X 4 day, # 30 MG Oral 90 tab, 0 Tablet Refill(s), [Tylenol called to with pharmacy Codeine #3] pregabalin 2016-06 Yes 2 caps, Teofilo oisris 50 MG Oral 2-20 PO, BID, # l Capsule 20:01: 120 Vince [Lyrica] 53 caplet, 2 Refill(s), called to pharmacy duloxetine 2016-06 Yes 30 mg = 1 Me moria 30 MG 2-20 cap, PO, l Enteric 20:01: Daily, # Tomy n Coated 00 30 cap, 1 Capsule Refill(s), [Cymbalta] Pharmacy: [facility] [address] [place] [address] 2016-06 Yes 1 tab, PO, Memoria en 325 MG / 1-20 Q6H, PRN l Hydrocodone 16:26: for pain, H ermann Bitartrate 00 # 24 tab, 10 MG Oral 0 Tablet Refill(s) [Wyalusing 10/325] Ondansetron No Notes: Teofilo osiris 08-14 (Same as: l 18:29: Zofran) MEDICATION WASTE Product Size: 4 mg Product Wasted: ___ mg Oxycodone No Notes: Memori a 08-14 (Same as: l 18:29: Roxicodone ) Labetalol No 10 mg, 2 Teofilo osiris 3- mL, Route: l 18:29: IVP, Drug form: INJ, Q5Min, Dosing Weight 77.273, kg, PRN Elevated BP, Start date: 08/14/16 12:29:00 [employer], Duration: 5 doses or times, Stop date: [...] ermann Bitartrate 00 10 MG Oral Tablet [Wyalusing 10/325] Methocarbam Yes 500 mg = 1 [...] mg = 1 Mem oria Sodium 100 -07 cap, PO, l MG Oral 12:19: BID, [...] NOT capsular SHAKE) antigen before diphtheria administra [id number] tion. protein (Same as: conjugate Prevnar vaccine / 13) Streptococc us pneumoniae serotype 14 capsular antigen diphtheria [id number] protein conjugate vaccine / Streptococc us pneumoniae [...] a 02-13 (Same As: l 20:00: Ancef, Vince 00 Kefzol) MEDICATION WASTE Product Size: 1000 mg Product Wasted: ___ mg Dexamethaso No Notes: Teofilo osiris ne 02-13 Concentrat l 17:00: ion: [place] 00 4mg/ml pantoprazol No Notes: Teofilo osiris e 02-13 Tablet l 15:05: should not [place] 00 be chewed or crushed. (Same as: Protonix) Losartan No Notes: Memoria 02-13 (Same as: l 15:05: Cozaar) [place] Labetalol No 10 mg, Memori a 02-13 Route: l 14:15: IVP, [place] 00 Q5Min, Dosing Weight 79.545, kg, PRN Elevated BP, Start date: 02/14/16 9:15:00 CDT, Duration: 5 doses or times, Stop date: Limited # of times leflunomide No 20 mg, Teofilo osiris 02-13 Route: PO, l 14:00: Drug form: [place] 00 TAB, Daily, Dosing Weight 79.545, kg, Start date: 02/14/16 9:00:00 CDT, Duration: 30 day, Stop date: 03/14/16 9:00:00 CDT Cymbalta No Notes: Memoria 02-13 (Same as: l 14:00: Cymbalta) Vince 00 (Do Not Crush) Robaxin No Notes: Memoria 02-13 (Same l 14:00: as:Robaxin Vince 00 ) Famotidine No Notes: Memor ia 02-13 (Same as: l 14:00: Pepcid) [place] Can be dilute in 5-10cc NS IVP: Slow IV push over at least 2 minutes. Docusate No Notes: Memoria Sodium 100 02-13 (Same as: l MG Oral 14:00: Colace) Vince Capsule 00 (Do Not Crush) Naloxone No Notes: Memoria 02-13 Same as l 13:33: Narcan Vince 00 Flumazenil No Notes: Memor ia 02-13 (Same as: l 13:33: Romazicon) [place] 00 Ondansetron No Notes: Teofilo osiris 02-13 (Same as: l 13:33: Zofran) Vince 00 MEDICATION WASTE Product Size: 4 mg Product Wasted: ___ mg Hydromorpho No Notes: Teofilo osiris ne 02-13 Same as: l 13:33: Dilaudid [place] 00 Hydralazine No Notes: Teofilo osiris 02-13 (Same as: l 13:33: Apresoline [place] 00 ) Push over 5 minutes Regular No 60 units) Teofilo osiris Insulin, 02-13 WASTE: F/P l Human 100 13:13: - Black; E He rmann UNT/ML 00 - Injectable Municipal Solution Trash Bin Stable for 28 days at room temperatur e Expires in days from ____Date Dextrose No 6.25 gm, Memor ia 50% Syringe 02-13 12.5 mL, l 13:13: Route: [place] 00 IVP, Drug Form: INJ, Dosing Weight 79.545, kg, PRN, PRN Abnormal Lab Result, Start date: 02/14/16 8:13:00 CDT, Duration: 30 day, Stop date: 03/15/16 8:12:00 CDT Acetaminoph No Notes: Do M emoria en 325 MG / 02-13 not exceed l Hydrocodone 13:13: 4gm/day of Vince Bitartrate 00 acetaminop 10 MG Oral hen. (Same Tablet as: Wyalusing [Wyalusing 325/10) 10/325] phenol 5 No Notes: Memoria MG/ML 02-13 Chlorasept l Mucosal 13:13: ic Lowber Tomy n Lowber 00 (Same as: Chlorasept ic, Sore Throat Lowber) WASTE: F/P - Black; E - Municipal Trash Bin Ondansetron No Notes: Teofilo osiris 02-13 (Same as: l 13:13: Zofran) Vince 00 MEDICATION WASTE Product Size: 4 mg Product Wasted: ___ mg Morphine No Notes: Memoria 02-13 (Same l 13:13: as:MORPhin [place] 00 e Sulfate) Sodium No 1,000 mL, Memori a Chloride 02-13 Rate: 50 l 0.154 13:13: ml/hr, [place] MEQ/ML 00 Infuse Injectable over: 20 Solution [...] a 02-12 Same as: l 04:00: Ancef Vince 00 Celebrex 50 Yes 50 mg, 1 Me moria mg oral 6-25 cap, PO, l capsule 16:16: BID, 60 [place] 49 cap, Substituti on Allowed, CAP Cymbalta 60 Yes 60 mg, 1 Me moria mg oral 6-25 cap, PO, l delayed 16:16: Daily, [place] release 21 Substituti capsule on Allowed methotrexat [...] 3-24 Clyde tab, l 02:00: Route: PO, Vince 00 Drug form: TAB, Bedtime, Start date: 08/31/11 21:00:00, Duration: 30 day, Stop date: 09/29/11 21:00:00 Prozac No Ketan 20 mg, 1 Mem oria 3-23 Clyde cap, l 17:38: Route: PO, [place] 00 Drug form: CAP, QAM, Start date: [...] Clyde 20.3 mL, l 16:01: Route: PO, [place] 00 Drug form: LIQ, Q4H, PRN Pain Score 1-3, Start date: 08/31/11 11:01:00, Duration: 30 day, Stop date: 09/30/11 11:00:00 Lactated No Ketan 1,000 mL, Memoria Ringers 3-23 Cldye Rate: 80 l Injection 16:01: ml/hr, Tomy n IV 1,000 mL 00 Infuse over: 12.5 hr, Route: IV, Dosing Weight 80.256 kg, Total Volume: 1,000, Start date: 08/31/11 11:01:00, Duration: 30 day, Stop date: 09/30/11 11:00:00 heparin No Ketan 5,000 Memor ia 3-23 [place] unit, 1 l 03:00: mL, Route: [place] 00 SUB-Q, Drug form: INJ, ONCE, Start date: 08/30/11 22:00:00, Stop date: 08/30/11 22:00:00 Pepcid No Ketan 20 mg, 2 Mem oria 3-23 [place] mL, Route: l 02:00: IVP, Drug [place] 00 form: INJ, Q12H, Start date: 08/30/11 21:00:00, Duration: 30 day, Stop date: 09/29/11 9:00:00 Reglan No Ketan 10 mg, 2 Mem oria 3-22 [place] mL, Route: l 23:00: IVP, Drug Vince 00 form: INJ, Q8H, Start date: 08/30/11 18:00:00, Duration: 2 day, Stop date: 09/01/11 10:00:00 Tylenol 2011-0 No Ketan 650 mg, 1 M emoria 3-22 [place] supp, l 21:50: Route: RI, [place] 00 Drug form: SUPP, Q4H, PRN Fever, [...] 1 day, Stop date: 08/31/11 16:48:00 morphine 2011-0 No Bassem D 2 mg, 1 Mem [...] 3-22 [place] 0.5 mL, l 17:52: Route: [place] 00 IVPB, Q6H, PRN Nausea & Vomiting, Start date: 08/30/11 12:52:00, Duration: 30 day, Stop date: 09/29/11 12:51:00 Zofran No Ketan 4 mg, 1 Teofilo osiris 08-29 [place] tab, l 17:51: Route: PO, [place] 00 Drug form: TAB, Q8H, PRN Nausea & Vomiting, Start date: 08/30/11 12:51:00, Duration: 30 day, Stop date: 09/29/11 12:50:00 naloxone No Ketan 0.2 mg, Me moria 08-29 [place] 0.5 mL, l 17:50: Route: IVP, Drug form: INJ, Q5Min, PRN Narcotic Reversal, Start date: 08/30/11 12:50:00, Duration: 30 day, Stop date: 09/29/11 12:49:00 morphine No Ketan IV, Start Memoria Sulfate 30 08-29 [place] date: l mg 17:49: 08/30/11 Vince 00 12:49:00, Duration: 30, 30 ml heparin No Ketan 5,000 Memor ia 08-29 [place] unit, l 14:34: Route: SUB-Q, ONCE, Start date: 08/30/11 9:34:00, Stop date: 08/30/11 9:34:00 Invanz No Ketan 1 gm, Memori a 08-29 [place] Route: l 11:30: IVPB, PRE [place] OP, Start date: 08/30/11 6:30:00, Stop date: 08/30/11 17:00:00 chlorhexidi No Ketan 15 mL, Memoria ne topical 08-29 [place] Route: l 0.12% 11:30: S&SPIT, Vince liquid 00 PRE OP, Drug form: LIQ, Start date: 08/30/11 6:30:00, Stop date: 08/30/11 17:00:00 Eliquis 2.5 Eliquis 2.5 No Eliquis [facility] mg tablet mg tablet 2.5 mg Ort hope tablet dic Sports Medicin e Eliquis 5 Eliquis 5 No Eliquis 5 [facility] mg tablet mg tablet mg tablet [facility] TAKE 1 TAKE 1 TAKE 1 dic TABLET BY TABLET BY TABLET BY Sports MOUTH TWICE MOUTH TWICE MOUTH Medicin DAILY FOR DAILY FOR TWICE e 91 DAYS 91 DAYS DAILY FOR 91 DAYS enoxaparin enoxaparin No enoxaparin [facility] 40 mg/0.4 40 mg/0.4 40 mg/0.4 [facility] mL mL mL dic subcutaneou subcutaneou subcutaneo Sports s syringe s syringe us syringe Medicin e Flowflex Flowflex No Flowflex Aza philly COVID-19 COVID-19 COVID-19 Ort hope Antigen Antigen Antigen dic Home Test Home Test Home Test Sports kit kit kit Medicin e hydrochloro hydrochloro No hydrochlor [facility] thiazide 25 thiazide 25 othiazide [facility] mg tablet mg tablet 25 mg dic RX by other RX by other tablet RX Sports MD by other Medicin MD [place] hydroxychlo hydroxychlo No hydroxychl [facility] roquine 200 roquine 200 oroquine Orth[facility] mg tablet mg tablet 200 mg dic Take 1 Take 1 tablet Sports tablet tablet Take 1 Medicin twice a day twice a day tablet e by oral by oral twice a route for route for day by 90 days. 90 days. oral route for 90 days. leflunomide leflunomide No leflunomid [facility] 20 mg 20 mg e 20 mg [facility] tablet Take tablet Take tablet dic 1 tablet 1 tablet Take 1 Sport s every day every day tablet Med icin by oral by oral every day e route for route for by oral 90 days. 90 days. route for 90 days. Levaquin Levaquin No Levaquin Aza philly [facility] dic Sports Medicin e levofloxaci levofloxaci No levofloxac [facility] n 750 mg n 750 mg in 750 mg Or thope tablet tablet tablet dic Sports Medicin e losartan losartan No losartan Aza philly 100 mg 100 mg 100 mg Orthope tablet 1 by tablet 1 by tablet 1 dic mouth once mouth once by mouth Sports a day a day once a day Medicin e methocarbam methocarbam No methocarba [facility] ol 500 mg ol 500 mg mol 500 mg Orthope tablet RX tablet RX tablet RX dic by other MD by other MD by other Sports Medicin e methocarbam methocarbam No methocarba [facility] ol 750 mg ol 750 mg mol 750 mg [facility] tablet tablet tablet dic Sports Medicin e mirtazapine mirtazapine No mirtazapin [facility] 15 mg 15 mg e 15 mg [facility] tablet tablet tablet dic Sports Medicin e mirtazapine mirtazapine No mirtazapin [facility] 7.5 mg 7.5 mg e 7.5 mg [facility] tablet Take tablet Take tablet dic 1 tablet by 1 tablet by Take 1 Sports mouth every mouth every tablet by Medicin night night mouth e every night nitrofurant nitrofurant No nitrofuran [facility] oin oin toin Orthope monohydrate monohydrate monohydrat dic /macrocryst /macrocryst e/macrocry Sports als 100 mg als 100 mg stals 100 Medicin capsule capsule mg capsule e oxycodone oxycodone No oxycodone [facility] 15 mg 15 mg 15 mg [facility] tablet tablet tablet dic Sports Medicin e oxycodone oxycodone No oxycodone [facility] ER 10 mg ER 10 mg ER 10 mg Ort hope tablet,adalberto tablet,adalberto tablet,cru dic h h sh Sports resistant,e resistant,e resistant, Medicin xtended xtended extended e release 12 release 12 release 12 hr hr hr oxycodone-a oxycodone-a No oxycodone- [facility] cetaminophe cetaminophe acetaminop [facility] n 10 mg-325 n 10 mg-325 hen 10 dic mg tablet mg tablet mg-325 mg Sports RX by other RX by other tablet RX Medicin MD by other e oxycodone-a oxycodone-a No oxycodone- [facility] cetaminophe cetaminophe acetaminop [facility] n 5 mg-325 n 5 mg-325 hen 5 di c mg tablet mg tablet mg-325 mg Sports tablet Medicin e pantoprazol pantoprazol No pantoprazo [facility] e 40 mg e 40 mg le 40 mg Ortho pe tablet,carlita tablet,carlita tablet,del dic yed release yed release ayed S ports release Medicin e prednisone prednisone No prednisone [facility] 5 mg tablet 5 mg tablet 5 mg O rthope Take 1 Take 1 tablet dic tablet tablet Take 1 Sports every day every day tablet Med icin by oral by oral every day e route as route as by oral directed directed route as for 60 for 60 directed days. days. for 60 days. pregabalin pregabalin No pregabalin [facility] 100 mg 100 mg 100 mg [facility] capsule RX capsule RX capsule RX dic by other MD by other by other Sports MD Roque [place] tramadol 50 tramadol 50 No tramadol [facility] mg tablet mg tablet 50 mg Orth ope tablet dic Sports Medicin e vancomycin vancomycin No vancomycin [facility] 125 mg 125 mg 125 mg [facility] capsule capsule capsule dic Sports Medicin e amoxicillin amoxicillin No amoxicilli [facility] 500 mg 500 mg n 500 mg [facility] capsule capsule capsule dic Sports Medicin e Arava 20 mg Arava 20 mg No 1 Q1D Arava 20 [facility] tablet Take tablet Take mg tablet Orth[facility] 1 tablet 1 tablet Take 1 dic every day every day tablet Spo rts by oral by oral every day Medi madie route for route for by oral e 90 days. 90 days. route for 90 days. atenolol 50 atenolol 50 No atenolol [facility] mg tablet mg tablet 50 mg Orth ope RX by other RX by other tablet RX dic MD by other Sports MD Roque [place] cholecalcif cholecalcif No cholecalci [facility] ke ke ferol [facility] (vitamin (vitamin (vitamin dic D3) 1,250 D3) 1,250 D3) 1,250 Sports mcg (50,000 mcg (50,000 mcg M edicin unit) unit) (50,000 e capsule capsule unit) TAKE 1 TAKE 1 capsule CAPSULE BY CAPSULE BY TAKE 1 MOUTH ONCE MOUTH ONCE CAPSULE BY MONTHLY MONTHLY MOUTH ONCE MONTHLY hydrochloro hydrochloro No hydrochlor [facility] thiazide 25 thiazide 25 othiazide [facility] mg tablet mg tablet 25 mg dic RX by other RX by other tablet RX Sports MD DILLON by other Medicin MD [place] hydroxychlo hydroxychlo No 1 BID hydroxychl [facility] roquine 200 roquine 200 oroquine [facility] mg tablet mg tablet 200 mg dic Take 1 Take 1 tablet Sports tablet tablet Take 1 Medicin twice a day twice a day tablet e by oral by oral twice a route for route for day by 90 days. 90 days. oral route for 90 days. Levaquin Levaquin No Levaquin Aza philly [facility] dic Sports Medicin e methocarbam methocarbam No methocarba [facility] ol 500 mg ol 500 mg mol 500 mg [facility] tablet RX tablet RX tablet RX dic by other MD by other by other Sports Medicin e oxycodone-a oxycodone-a No oxycodone- [facility] cetaminophe cetaminophe acetaminop [facility] n 10 mg-325 n 10 mg-325 hen 10 dic mg tablet mg tablet mg-325 mg Sports RX by other RX by other tablet RX Medicin MD by other e prednisone prednisone No prednisone [facility] 5 mg tablet 5 mg tablet 5 mg O rthope TAKE 4 PO TAKE 4 PO tablet dic QAM X 4 QAM X 4 TAKE 4 PO Spor ts DAYS; 3 x 4 DAYS; 3 x 4 QAM X 4 Medicin DAYS; 2 x 4 DAYS; 2 x 4 DAYS; 3 x e DAYS; 1 x 4 DAYS; 1 x 4 4 DAYS; 2 DAYS; days DAYS; days x 4 DAYS; then stop then stop 1 x 4 DAYS; days then stop pregabalin pregabalin No pregabalin [facility] 100 mg 100 mg 100 mg [facility] capsule RX capsule RX capsule RX dic by other MD by other MD by other Sports Medicin e amoxicillin amoxicillin No amoxicilli [facility] 500 mg 500 mg n 500 mg [facility] capsule capsule capsule dic Sports Medicin e atenolol 50 atenolol 50 No atenolol [facility] mg tablet mg tablet 50 mg Orth ope RX by other RX by other tablet RX dic MD by other Sports Medicin e cephalexin cephalexin No cephalexin [facility] 500 mg 500 mg 500 mg [facility] capsule capsule capsule dic TAKE 1 TAKE 1 TAKE 1 Sports CAPSULE BY CAPSULE BY CAPSULE BY Medicin MOUTH THREE MOUTH THREE MOUTH e TIMES DAILY TIMES DAILY THREE FOR 2 WEEK FOR 2 WEEK TIMES DAILY FOR 2 WEEK cholecalcif cholecalcif No cholecalci [facility] ke ke ferol [facility] (vitamin (vitamin (vitamin dic D3) 1,250 D3) 1,250 D3) 1,250 Sports mcg (50,000 mcg (50,000 mcg M edicin unit) unit) (50,000 e capsule capsule unit) TAKE 1 TAKE 1 capsule CAPSULE BY CAPSULE BY TAKE 1 MOUTH ONCE MOUTH ONCE CAPSULE BY MONTHLY MONTHLY MOUTH ONCE MONTHLY dexamethaso dexamethaso No dexamethas [facility] ne 0.5 mg ne 0.5 mg one 0.5 mg [facility] tablet tablet tablet dic Sports Medicin e dexamethaso dexamethaso No dexamethas [facility] ne 2 mg ne 2 mg one 2 mg Ortho pe tablet tablet tablet dic Sports Medicin e duloxetine duloxetine No duloxetine [facility] 30 mg 30 mg 30 mg [facility] capsule,del capsule,del capsule,de dic ayed ayed layed Sports release release release Medici n e duloxetine duloxetine No duloxetine [facility] 60 mg 60 mg 60 mg [facility] capsule,del capsule,del capsule,de dic ayed ayed layed Sports release 1 release 1 release 1 Medicin by mouth by mouth by mouth e once a day once a day once a day Immunizations Ordered Immunization Filled Immunization Date Status Commen ts Source Name Name pneumococcal 2016-02-15 Completed [facility] 13-valent vaccine 15:38:00 [place] pneumococcal 2016-02-15 Completed [facility] 13-valent vaccine 15:38:00 [place] Vital Signs Vital Name Observation Time Observation Value Comments Source BP Diastolic 2022-04-02 00:00:00 82 mm[Hg] [facility] Height 2022-04-02 00:00:00 66 [in_i] [facility] BMI (Body Mass 2022-04-02 00:00:00 18.8 kg/m2 [facility] Index) Sports Medicine BP Systolic 2022-04-02 00:00:00 114 mm[Hg] [facility] Body Weight 2022-04-02 00:00:00 116.6 [lb_av] [facility] BP Diastolic 2021-12-27 00:00:00 95 mm[Hg] [facility] Height 2021-12-27 00:00:00 67 [in_i] [facility] BMI (Body Mass 2021-12-27 00:00:00 21.1 kg/m2 [facility] Index) Sports Medicine BP Systolic 2021-12-27 00:00:00 128 mm[Hg] [facility] Body Weight 2021-12-27 00:00:00 134.7 [lb_av] [facility] BMI Calculated 2017-08-20 20:22:00 Maryam avelar [place] Weight 2017-08-20 20:22:00 [facility] [place] Height 2017-08-20 20:22:00 172.72 cm [facility] [place] Heart Rate 2017-08-20 20:22:00 [facility] [place] Temperature Oral (F) 2017-08-20 20:22:00 97.7 F [facility] [place] Systolic (mm Hg) 2017-08-20 20:22:00 Teofilo rial [place] Diastolic (mm Hg) 2017-08-20 20:22:00 Mem orial [place] Height 2017-07-09 20:53:00 172.72 cm [facility] [place] BMI Calculated 2017-07-09 20:53:00 Memori al [place] Weight 2017-07-09 20:53:00 [facility] [place] Heart Rate 2017-07-09 20:53:00 [facility] [place] Systolic (mm Hg) 2017-07-09 20:53:00 Teofilo rial [place] Diastolic (mm Hg) 2017-07-09 20:53:00 Mem orial [place] BMI Calculated 2017-06-06 13:00:00 Memori al [place] Weight 2017-06-06 13:00:00 [facility] [place] Height 2017-06-06 13:00:00 172.72 cm [facility] [place] Heart Rate 2017-06-06 13:00:00 [facility] [place] Temperature Oral (F) 2017-06-06 13:00:00 98.1 F [facility] [place] Systolic (mm Hg) 2017-06-06 13:00:00 Teofilo rial [place] Diastolic (mm Hg) 2017-06-06 13:00:00 Mem orial [place] BMI Calculated 2017-05-29 19:33:00 Memori al [place] Weight 2017-05-29 19:33:00 [facility] [place] Heart Rate 2017-05-29 19:33:00 [facility] [place] Systolic (mm Hg) 2017-05-29 19:33:00 Teofilo rial [place] Diastolic (mm Hg) 2017-05-29 19:33:00 Mem orial [place] Height 2017-05-29 19:33:00 172.72 cm [facility] [place] Height 2017-05-20 20:39:00 172.72 cm [facility] [place] Systolic (mm Hg) 2017-05-20 20:39:00 Teofilo rial [place] Diastolic (mm Hg) 2017-05-20 20:39:00 Mem orial [place] Heart Rate 2017-05-20 20:39:00 [facility] [place] BMI Calculated 2017-04-29 16:18:00 Memori al [place] Height 2017-04-29 16:18:00 172.72 cm [facility] [place] Weight 2017-04-29 16:18:00 [facility] [place] Systolic (mm Hg) 2017-04-29 16:18:00 Teofilo rial [place] Diastolic (mm Hg) 2017-04-29 16:18:00 Mem orial [place] Temperature Oral (F) 2017-04-29 16:18:00 98.2 F [facility] [place] BMI Calculated 2017-04-26 20:56:00 Memori al [place] Weight 2017-04-26 20:56:00 [facility] [place] Height 2017-04-26 20:56:00 173.99 cm [facility] [place] Temperature Oral (F) 2017-04-26 20:56:00 98.5 F [facility] [place] Heart Rate 2017-04-26 20:56:00 [facility] [place] Systolic (mm Hg) 2017-04-26 20:56:00 Teofilo rial [place] Diastolic (mm Hg) 2017-04-26 20:56:00 Mem orial [place] Respitory Rate 2016-08-14 19:00:00 Memori al [place] Systolic (mm Hg) 2016-08-14 19:00:00 Teofilo rial [place] Diastolic (mm Hg) 2016-08-14 19:00:00 Mem orial [place] Systolic (mm Hg) 2016-08-14 18:45:00 Teofilo rial [place] Diastolic (mm Hg) 2016-08-14 18:45:00 Mem orial [place] Respitory Rate 2016-08-14 18:45:00 Memori al [place] Systolic (mm Hg) 2016-08-14 18:30:00 Teofilo rial [place] Diastolic (mm Hg) 2016-08-14 18:30:00 Mem orial [place] Respitory Rate 2016-08-14 18:30:00 Memori al [place] Heart Rate 2016-08-14 13:57:00 [facility] [place] Height 2016-08-14 13:54:00 172.72 cm [facility] [place] BMI Calculated 2016-08-14 13:54:00 Memori al [place] Weight 2016-08-14 13:54:00 [facility] [place] BMI Calculated 2016-08-10 21:13:00 Memori al [place] Weight 2016-08-10 21:13:00 [facility] [place] Height 2016-08-10 21:13:00 172.72 cm [facility] [place] Temperature Oral (F) 2016-02-15 13:08:00 98.1 F [facility] [place] Systolic (mm Hg) 2016-02-15 13:08:00 Teofilo rial [place] Diastolic (mm Hg) 2016-02-15 13:08:00 Mem orial [place] Heart Rate 2016-02-15 13:08:00 [facility] [place] Respitory Rate 2016-02-15 13:08:00 Memori al [place] Systolic (mm Hg) 2016-02-15 09:06:00 Teofilo rial [place] Diastolic (mm Hg) 2016-02-15 09:06:00 Mem orial [place] Respitory Rate 2016-02-15 09:06:00 Memori al [place] Heart Rate 2016-02-15 09:06:00 [facility] [place] Temperature Oral (F) 2016-02-15 09:06:00 98.1 F [facility] [place] Temperature Oral (F) 2016-02-15 04:43:00 98.2 F [facility] [place] Systolic (mm Hg) 2016-02-15 04:43:00 Teofilo rial [place] Diastolic (mm Hg) 2016-02-15 04:43:00 Mem orial [place] Respitory Rate 2016-02-15 04:43:00 Memori al [place] Heart Rate 2016-02-15 04:43:00 [facility] [place] Height 2016 11:41:00 172.72 cm [facility] [place] Weight 2016 11:41:00 [facility] [place] BMI Calculated 2016 11:41:00 Memori al [place] Height 2016-02-09 15:30:00 172.72 cm [facility] BMI Calculated 2016-02-09 15:30:00 Memori al [place] Weight 2016-02-09 15:30:00 [facility] [place] Height 2012-12-02 15:57:00 172.72 cm [facility] Weight 2012-12-02 15:57:00 [facility] [place] Temperature Oral (F) 2011-09-01 00:10:00 98.9 F [facility] [place] Systolic (mm Hg) 2011-09-01 00:10:00 Teofilo rial [place] Heart Rate 2011-09-01 00:10:00 [facility] [place] Respitory Rate 2011-09-01 00:10:00 Memori al [place] Diastolic (mm Hg) 2011-09-01 00:10:00 Mem orial [place] Diastolic (mm Hg) 2011-08-31 20:00:00 Mem orial [place] Systolic (mm Hg) 2011-08-31 20:00:00 Teofilo rial [place] Respitory Rate 2011-08-31 20:00:00 Memori al [place] Temperature Oral (F) 2011-08-31 20:00:00 98.7 F [facility] [place] Heart Rate 2011-08-31 20:00:00 [facility] [place] Diastolic (mm Hg) 2011-08-31 16:40:00 Mem orial [place] Systolic (mm Hg) 2011-08-31 16:40:00 Teofilo rial [place] Respitory Rate 2011-08-31 16:40:00 Memori al [place] Heart Rate 2011-08-31 16:40:00 [facility] [place] Temperature Oral (F) 2011-08-31 16:40:00 98.8 F [facility] [place] Weight 2011-08-24 21:17:00 [facility] [place] Height 2011-08-24 21:17:00 175.26 cm [facility] [place] Weight 2011-06-12 16:09:00 [facility] [place] Height 2011-06-12 16:09:00 [facility] Procedure Date / Time Performing Clinician Source Performed Injection(s), anesthetic 2017-07-18 21:26:00 [facility] orial Vince agent and/or steroid, transforaminal epidural, with imaging guidance (fluoroscopy or CT); lumbar or sacral, single level Epidural steroid 2017-07-09 06:00:00 [facility] rmann injection<sup>1</sup> Epidural steroid 2017-05-21 06:00:00 [facility] rmann injection<sup>2</sup> Microdiscectomy 2016-08-14 06:00:00 [facility] Cervical discectomy 2016 05:00:00 [facility] Miscellaneous 2011-08-30 05:00:00 [facility] operations<sup>5</sup> Miscellaneous operations 2011-08-30 05:00:00 [facility] orial Vince <sup>3</sup> Arthroscopy of knee [facility] Hysterectomy [facility] [place] Jah-en-y gastric [facility] Dolores nn bypass<sup>6</sup> Arthroscopy of knee [facility] Vince Jah-en-y gastric bypass Clover Clarke <sup>4</sup> Plan of Care Planned Activity Planned Date Details Comments Source Diagnostic Test 2022-04-02 CBC [code = CBC] [facility] Pending 00:00:00 [facility] Diagnostic Test 2022-04-02 CMP, serum or [facility] Pending 00:00:00 plasma [code = Sports Medici ne CMP, serum or plasma] Encounters Start End Encounter Admission Attending Care Care Encounter Source Date/Time Date/Time Type Type Clinicians Facility Department ID 2020-11-15 Inpatient EL RICHAR MondragonTO LABO [id number] [facility] 14:00:00 [place] [id number] [facility] 2020-11-10 Inpatient RICHAR SmithTO ADMI [id number] [facility] 14:00:00 Ug[place] [id number] [facility] 2020-11-03 Inpatient RICHAR MondragonTO HCATO [id number] [facility] 13:00:00 Ugonna [id number] [facility] 2022-05-10 2022-05-10 Outpatient [facility] [id number] [place] 00:00:00 00:00:00 REX 547 Method i 2022-04-19 2022-04-19 Outpatient [facility] [id number] [place] 00:00:00 00:00:00 TIFFANIE 766 Method i 2022-04-18 2022-04-18 Outpatient [facility] [id number] [place] 00:00:00 00:00:00 REX 392 Method i 2022-04-18 2022-04-18 Outpatient [facility] [id number] [place] 00:00:00 00:00:00 REX 538 Method i 2022-04-05 2022-04-05 Outpatient [facility] [id number] [place] 00:00:00 00:00:00 923 Method i 2022-04-02 2022-04-02 Outpatient FOG_Fukuda_ AOSM AOSM [id number] [facility] 00:00:00 00:00:00 Jo-Ann [id number] Orth ope dic Sports Medicin e 2022-04-02 2022-04-02 Lizz Marguerite [facility]OS[facility] [place] - Ortho [id number] [facility] 00:00:00 00:00:00 MD Fortino: Steph Echevarria - Orthope [address] [facility] [place] [id number] , Ph. [phone] 2022-04-02 2022-04-02 Outpatient EMIR[facility] [id number] [place] 00:00:00 00:00:00 YVETTE [address] 2022-03-29 2022-03-29 Outpatient FOG_Fukuda_ AOSM AOSM [id number] [facility] 00:00:00 00:00:00 Jo-Ann [id number] Orth ope dic Sports Medicin e 2022-03-26 2022-03-26 Outpatient LE[facility] [id number] [place] 00:00:00 00:00:00 TIFFANIE [address] 2022-03-26 2022-03-26 Outpatient [facility] [id number] [place] 00:00:00 00:00:00 TIFFANIE [address] 2022-03-08 2022-03-08 Outpatient [facility] [id number] [place] 00:00:00 00:00:[address] 2022-02-19 2022-02-19 [facility] [id number] [place] 00:00:00 00:00:[address] 2022-02-19 2022-02-19 [facility]patient [facility] [id number] [place] 00:00:00 00:00:[address] 2022-01-30 2022-01-31 Inpatient EMIR, [facility] 014 [id number] [place] 00:00:00 00:00:00 YVETTE [address] 2022-01-29 2022-01-29 Outpatient [facility] [id number] [place] 00:00:00 00:00:[address] 2022-01-29 2022-01-29 Outpatient [facility] [id number] [place] 00:00:00 00:00:[address] 2022-01-26 2022-01-26 Outpatient FOG_Fukuda_ AOSM AOSM [id number] [facility] 00:00:00 00:00:00 Jo-Ann [id number] Orth ope dic Sports Medicin e 2021-12-27 2021-12-27 Outpatient FOG_Fukuda_ AOSM AOSM [id number] [facility] 12:08:00 12:08:00 Jo-Ann [id number] Orth ope dic Sports Medicin e 2021-12-27 2021-12-27 Lizz ANDREWS [place] - Ortho [id number] [facility] 00:00:00 00:00:00 MD Fortino: Steph Echevarria - Orthopjohanny [address] [facility], [place] [id number] , Ph. [phone] 2021-12-27 2021-12-27 Outpatient JULIANA Freitas [id number] 00:00:00 00:00:00 Lizz Everett [id number] 2021-12-27 Outpatient [facility]IR[facility] [id number] [place] 00:00:00 00:00:00 YVETTE [address] 2021-12-27 2021-12-27 Outpatient [facility] [id number] [place] 00:00:00 00:00:00 YVETTE [address] 2021-12-21 2021-12-21 Outpatient FOG_Fukuda_ AOSM AOSM [id number] [facility] 11:59:00 11:59:00 Jo-Ann [id number] Orth ope dic Sports Medicin e 2021-12-15 2021-12-18 Inpatient EMIR, [facility] 021 [id number] [place] 00:00:00 00:00:00 YVETTE [address] 2021-11-30 2021-11-30 Outpatient EMIR, [facility] [id number] [place] 00:00:00 00:00:00 YVETTE [address] 2021-11-27 2021-11-27 Outpatient EMIR, [facility] [id number] [place] 00:00:00 00:00:00 YVETTE [address] 2021-11-27 2021-11-27 Outpatient [facility]IR, [facility] [id number] [place] 00:00:00 00:00:00 YVETTE [address] 2021-11-16 2021-11-16 Outpatient [facility] [id number] [place] 00:00:00 00:00:[address] 2021-11-10 2021-11-10 Outpatient EMIR, [facility] [id number] [place] 00:00:00 00:00:00 YVETTE 651 Method i 2021-10-26 2021-10-26 Outpatient EMIR, [facility] [id number] [place] 00:00:00 00:00:00 YVETTE [address] 2021-10-13 2021-10-13 Outpatient EMIR, [facility] [id number] [place] 00:00:00 00:00:00 YVETTE [address] 2021-10-13 2021-10-13 Outpatient EMIR, [facility] [id number] [place] 00:00:00 00:00:00 YVETTE [address] 2021-10-13 2021-10-13 Outpatient EMIR, [facility] [id number] [place] 00:00:00 00:00:00 YVETTE [address] 2021-09-18 2021-09-18 Outpatient L[facility], [facility] [id number] [place] 00:00:00 00:00:00 REX 198 Method i 2021-08-17 2021-08-17 Outpatient [facility] [id number] [place] 00:00:00 00:00:00 KAREN 409 Metho di 2021-08-07 2021-08-07 Outpatient [facility], [facility] [id number] [place] 00:00:00 00:00:00 ERX [address] 2021-08-07 2021-08-07 Outpatient L[facility], [facility] [id number] [place] 00:00:00 00:00:00 REX [address] 2021-08-07 2021-08-07 Outpatient [facility], [facility] [id number] [place] 00:00:00 00:00:00 REX [address] 2021-08-07 2021-08-07 Outpatient LEV, [facility] [id number] [place] 00:00:00 00:00:00 REX [address] 2021-08-07 2021-08-07 Outpatient LEV, [facility] [id number] [place] 00:00:00 00:00:00 REX [address] 2021-08-07 2021-08-07 Outpatient LEV, H H [id number] [place] 00:00:00 00:00:00 REX [address] 2021-07-13 2021-07-21 Inpatient LEV, [facility] 014 [id number] [place] 00:00:00 00:00:00 REX [address] 2021-07-11 2021-07-11 Outpatient LEV, [facility] [id number] [place] 00:00:00 00:00:00 REX [address] 2021-07-03 2021-07-03 Outpatient LEV, [facility] [id number] [place] 00:00:00 00:00:00 REX [address] 2021-07-03 2021-07-03 Outpatient LEV, [facility] [id number] [place] 00:00:00 00:00:00 REX [address] 2021-07-03 2021-07-03 Outpatient LEV, [facility] [id number] [place] 00:00:00 00:00:00 REX [address] 2021-06-12 2021-06-12 Outpatient EMIR, [facility] [id number] [place] 00:00:00 00:00:00 YVETTE [address] 2021-05-23 2021-05-23 Outpatient HUNTER, [facility] [id number] [place] 00:00:00 00:00:00 KAREN [address] 2021-05-22 2021-05-22 Outpatient [facility] [id number] [place] 00:00:00 00:00:[address] 2021-05-22 2021-05-22 Outpatient [facility] [id number] [place] 00:00:00 00:00:[address] 2021-05-102021-05-15 Inpatient VASILE, [facility] [id number] [place] 00:00:00 00:00:00 JING 771 [address] 2021-05-02 2021-05-02 Outpatient EMIR, [facility] [id number] [place] 00:00:00 00:00:00 YVETTE 110 [facility] i 2021-04-17 2021-04-17 Outpatient EMIR, [facility] [id number] [place] 00:00:00 00:00:00 YVETTE 088 Method i 2021-04-17 2021-04-17 Outpatient EMIR, [facility] [id number] [place] 00:00:00 00:00:00 YVETTE 691 Method i 2021-04-10 2021-04-10 Outpatient HUNTER, [facility] [id number] [place] 00:00:00 00:00:00 KAREN 548 [facility] 2021-03-27 2021-03-27 Outpatient EMIR, [facility] [id number] [place] 00:00:00 00:00:00 YVETTE 034 Method i 2021-03-27 2021-03-27 Outpatient EMIR, [facility] [id number] [place] 00:00:00 00:00:00 YVETTE 546 Method i 2021-03-13 2021-03-13 Outpatient HUNTER, [facility] [id number] [place] 00:00:00 00:00:00 KAREN 545 [address] 2021-03-06 2021-03-06 Outpatient [facility] [id number] [place] 00:00:00 00:00:00 194 Method i 2021-03-06 2021-03-06 Outpatient [facility] [id number] [place] 00:00:00 00:00:00 394 Method i 2021-02-20 2021-02-26 Inpatient EMIR, [facility] 014 [id number] [place] 00:00:00 00:00:00 YVETTE [address] 2021-02-20 2021-02-20 Outpatient OHARA, [facility] [id number] [place] 00:00:00 00:00:00 REX 436 Method i 2021-02-20 2021-02-20 Outpatient OHARA, [facility] [id number] [place] 00:00:00 00:00:00 REX 910 Method i 2021-02-17 2021-02-17 Outpatient HUNTER, [facility] [id number] [place] 00:00:00 00:00:[address] KAREN [address] 2021-02-17 2021-02-17 Outpatient HUNTER, [facility] [id number] [place] 00:00:00 00:00:00 KAREN 184 [facility] 2021-02-16 2021-02-16 Outpatient HUNTER, [facility] [id number] [place] 00:00:00 00:00:00 KAREN 921 [address] 2021 2021 Outpatient HUNTER, [facility] [id number] [place] 00:00:00 00:00:00 KAREN 208 [facility] 2021-02-09 2021-02-09 Outpatient HUNTER, [facility] [id number] [place] 00:00:00 00:00:00 KAREN 930 [facility] [address] 2021-01-30 2021-01-30 Outpatient EMIR, [facility] [id number] [place] 00:00:00 00:00:00 YVETTE 100 Method i 2021-01-30 2021-01-30 Outpatient EMIR, [facility] [id number] [place] 00:00:00 00:00:00 YVETTE 764 Method i 2021-01-22 2021-01-22 Emergency EADEH, [facility] [id number] [place] 00:00:00 00:00:00 ANISH 918 Method i 2021-01-13 2021-01-13 Outpatient EMIR, [facility] [id number] [place] 00:00:00 00:00:00 YVETTE 967 Method i 2021-01-13 2021-01-13 Outpatient EMIR, [facility] [id number] [place] 00:00:00 00:00:00 YVETTE 615 Method i 2021-01-12 2021-01-12 Outpatient HUNTER, [facility] [id number] [place] 00:00:00 00:00:00 KAREN 330 [address] 2021-01-04 2021-01-05 Outpatient MONTEZ, [facility] [id number] [place] 00:00:00 00:00:00 YANET [address] 2020-12-16 2020-12-16 Outpatient [facility] [id number] [place] 00:00:00 00:00:[address] 2020-12-05 2020-12-06 Outpatient HUNTER, [facility] [id number] [place] 00:00:00 00:00:[address] 2020-12-02 2020-12-02 Outpatient EMIR, [facility] [id number] [place] 00:00:00 00:00:00 YVETTE [address] 2020-12-02 2020-12-02 Outpatient [facility] [id number] [place] 00:00:00 00:00:[address] 2020-11-22 2020-11-29 Inpatient MONTEZ, [facility] [id number] [place] 00:00:00 00:00:00 YANET [address] 2020-11-21 2020-11-21 Outpatient EMIR, [facility] [id number] [place] 00:00:00 00:00:00 YVETTE [address] 2020-11-21 2020-11-21 Outpatient EMIR, [facility] [id number] [place] 00:00:00 00:00:00 YVETTE [address] 2020-11-14 2020-11-14 Outpatient [facility] [id number] [place] 00:00:00 00:00:[address] 2020-11-14 2020-11-14 Outpatient [facility] [id number] [place] 00:00:00 00:00:[address] 2020-11-04 2020-11-07 Inpatient CÉSAR, UMAR [facility] [id number] [place] 00:00:00 00:00:[address] 2020-11-02 2020-11-02 Outpatient EL DENA Mondragon LABO [id number] [facility] 08:00:00 23:59:00 Ugonna [address]49 [facility] 2020-11-02 2020-11-02 Outpatient VIC Mondragon LABO [id number] [id number] [facility] 18:13:00 18:13:00 Ugonna 90 [facility] 2020-10-24 2020-10-24 Outpatient HUNTER, [facility] [id number] [place] 00:00:00 00:00:00 KAREN [address] 2020-10-01 2020-10-02 Outpatient MELIDA, [facility] [id number] [place] 00:00:00 00:00:00 YANET [address] 2020-09-30 2020-09-30 Outpatient PEPITO [facility] [id number] [place] 00:00:00 00:00:[address] 2020-09-30 2020-09-30 Outpatient PEPITO [facility] [id number] [place] 00:00:00 00:00:[address] 2020-09-15 2020-09-17 Outpatient PEPITO, [facility] [id number] [place] 00:00:00 00:00:[address] 2020-09-12 2020-09-12 Outpatient PEPITO [facility] [id number] [place] 00:00:00 00:00:[address] 2020-09-12 2020-09-12 Outpatient PEPITO [facility] [id number] [place] 00:00:00 00:00:[address] 2020-09-12 2020-09-12 Outpatient PEPITO, [facility] [id number] [place] 00:00:00 00:00:[address] 2020-09-01 2020-09-05 Inpatient PEPITO [facility] [id number] [place] 00:00:00 00:00:[address] 2020-08-23 2020-08-26 Inpatient [facility] [id number] [place] 00:00:00 00:00:[address] 2020-08-19 2020-08-19 Outpatient [facility] [id number] [place] 00:00:00 00:00:[address] 2020-08-16 2020-08-16 Outpatient [facility] [id number] [place] 00:00:00 00:00:[address] 2020-08-11 2020-08-11 Outpatient [facility] [id number] [place] 00:00:00 00:00:[address] 2020-08-01 2020-08-10 Outpatient [facility] [id number] [place] 00:00:00 00:00:[address] 2020-08-01 2020-08-01 Outpatient [facility] [id number] [place] 00:00:00 00:00:[address] 2020-08-01 2020-08-01 Outpatient [facility] [id number] [place] 00:00:00 00:00:[address] 2020-08-01 2020-08-01 Outpatient [facility] [id number] [place] 00:00:00 00:00:00 KAREN [address] 2020-08-01 2020-08-01 Outpatient [facility] [id number] [place] 00:00:00 00:00:[address] 2020-07-18 2020-07-18 Outpatient LEV [facility] [id number] [place] 00:00:00 00:00:00 REX [address] 2020-07-18 2020-07-18 Outpatient LEV [facility] [id number] [place] 00:00:00 00:00:00 REX [address] 2020-07-18 2020-07-18 Outpatient LEV [facility] [id number] [place] 00:00:00 00:00:00 REX [address] 2020-06-23 2020-06-23 Outpatient [facility] [id number] [place] 00:00:00 00:00:00 KAREN [address] 2020-06-20 2020-06-20 Outpatient Wendy, HCATO RADI [id number] [facility] 08:30:00 08:30:00 Antwan [id number] [facility] 2020-05-27 2020-05-27 Outpatient Wendy HCATO RADI [id number] [facility] 13:30:00 13:30:00 Antwan 57540 [facility] 2020-05-26 2020-05-26 Outpatient [facility] [id number] [place] 00:00:00 00:00:00 KAREN [address] 2020-05-02 2020-05-02 Outpatient [facility] [id number] [place] 00:00:00 00:00:00 KAREN [address] 2020-04-26 2020-04-26 Emergency Morris, [facility] [id number] 15:53:00 18:18:00 Annalisa Maxwell [id number] [place] [id number] [place] [id number] 2020-04-26 2020-04-26 Emergency X [facility] ERT [id number] [facility] 15:39:00 15:39:00 [facility] 2020-04-26 2020-04-26 Orders Doctor COLLINS [id number] 00:00:00 00:00:00 Only Unassigned, JOSH 350.1.13.10 [place] [facility] [id number] 2020-04-14 2020-04-14 Outpatient Wendy, HCAT[facility] SURG [id number] [facility] 09:15:00 09:15:00 Antwan [id number] [facility] 2020-04-14 2020-04-14 Outpatient [facility] [id number] [place] 00:00:00 00:00:00 KAREN [address] 2020-04-13 2020-04-13 Out[facility] [id number] [facility] 18:17:00 18:17:00 Antwan [facility] 2020-03-14 2020-03-14 Outpatient LEV [facility] [id number] [place] 00:00:00 00:00:00 REX [address] 2020-03-14 2020-03-14 Outpatient LEV [facility] [id number] [place] 00:00:00 00:00:00 REX [address] 2020-03-02 2020-03-02 Outpatient JOSE [facility] [id number] [place] 00:00:00 00:00:00 MARÍA 132 Method i 2020-03-02 2020-03-02 Outpatient WOODGeoffrey, [facility] [id number] [place] 00:00:00 00:00:00 MARÍA 095 Method i 2020-02-22 2020-02-22 Outpatient HUNTER, [facility] [id number] [place] 00:00:00 00:00:00 KAREN 362 [address] 2020-02-15 2020-02-17 Inpatient MONTEZ, [facility] [id number] [place] 00:00:00 00:00:00 YANET 467 Method i 2020-01-14 2020-01-14 Outpatient HUNTER, [facility] [id number] [place] 00:00:00 00:00:00 KAREN 553 [facility] [address] 2020-01-11 2020-01-11 Outpatient LEV, [facility] [id number] [place] 00:00:00 00:00:00 REX 784 Method i 2020-01-11 2020-01-11 Outpatient LEV, [facility] [id number] [place] 00:00:00 00:00:00 REX 815 Method i 2019-12-28 2019-12-28 Outpatient HUNTER, [facility] [id number] [place] 00:00:00 00:00:00 KAREN 560 [address] 2019-12-16 2019-12-20 Inpatient LEV, [facility] [id number] [place] 00:00:00 00:00:00 REX 904 Method i 2019-12-14 2019-12-14 Outpatient LEV, [facility] [id number] [place] 00:00:00 00:00:00 REX 844 Method i 2019-12-07 2019-12-07 Outpatient LEV, [facility] [id number] [place] 00:00:00 00:00:00 REX 733 Method i 2019-12-07 2019-12-07 Outpatient LEV, [facility] [id number] [place] 00:00:00 00:00:00 REX 112 Method i 2019-11-09 2019-11-09 Outpatient LEV, [facility] [id number] [place] 00:00:00 00:00:00 REX 178 Method i 2019-11-09 2019-11-09 Outpatient LEV [facility] [id number] [place] 00:00:00 00:00:00 REX [address] 2019-08-03 2019-08-03 Outpatient LEV [facility] [id number] [place] 00:00:00 00:00:00 REX [address] 2017-09-25 2017-09-27 Phone nullFlavo [facility] [id number] [place] 16:46:00 04:59:59 Message r Clinic [facility] 32 [facility] 2017-08-20 2017-08-21 Outpatient nullFlavo [facility] [id number] [place] 14:30:00 04:59:59 r Clinic [facility] 29 [facility] 2017-08-19 2017-08-20 Outpt Diag nullFlavo [facility] [id number] [place] 18:40:00 04:59:00 Services r Outpatient 12 l [facility] 2017-08-14 2017-08-16 Phone nullFlavo [facility] [id number] [place] 18:53:00 05:59:59 Message r Clinic [facility] 31 [facility] 2017-08-07 2017-08-09 Phone nullFlavo [facility] [id number] [place] 14:24:00 05:59:59 Message r Clinic [facility] 30 [facility] 2017-08-08 2017-08-08 Ambulatory nullFlavo [facility] [id number] [place] 17:00:00 17:00:00 Pre-Reg r Clinic [facility] 11 [facility] 2017-07-26 2017-07-28 Phone nullFlavo [facility] [id number] [place] 22:39:00 05:59:59 Message r Clinic [facility] 29 [facility] 2017-07-22 2017-07-24 Phone nullFlavo [facility] [id number] [place] 23:01:00 05:59:59 Message r Clinic [facility] 28 [facility] 2017-07-18 2017-07-19 Outpatient nullFlavo [facility] [id number] [facility] 19:40:00 05:59:59 r Clinic [facility] 28 [facility] 2017-07-11 2017-07-13 Phone nullFlavo [facility] [id number] [facility] 16:27:00 05:59:59 Message r Clinic [facility] 27 [facility] 2017-07-11 2017-07-11 Ambulatory nullFlavo [facility] [id number] [facility] 15:40:00 15:40:00 Pre-Reg r Clinic [facility] 27 [facility] 2017-07-10 2017-07-10 Ambulatory nullFlavo [facility] [id number] [place] 16:00:00 16:00:00 Pre-Reg r Internal 18 l [facility] 2017-07-09 2017-07-10 Outpatient nullFlavo [facility] [id number] [place] 17:40:00 05:59:59 r Clinic [facility] 26 [facility] 2017-07-08 2017-07-10 Phone nullFlavo [facility] [id number] [facility] 17:26:00 05:59:59 Message r Clinic [facility] 26 [facility] 2017-07-09 2017-07-09 Ambulatory nullFlavo [facility] [id number] [facility] 19:40:00 19:40:00 Pre-Reg r Clinic [facility] 24 [facility] 2017-07-08 2017-07-08 Ambulatory nullFlavo [facility] [id number] [facility] 19:00:00 19:00:00 Pre-Reg r Clinic [facility] 23 [facility] 2017-07-08 2017-07-08 Ambulatory nullFlavo [facility] [id number] [facility] 17:40:00 17:40:00 Pre-Reg r Clinic [facility] 25 [facility] 2017-07-03 2017-07-05 Phone nullFlavo MNA [id number] [place] 17:29:00 05:59:59 Message r Neurosurger 25 l [facility] 2017-07-04 2017-07-04 Ambulatory nullFlavo [facility] [id number] [facility] 20:20:00 20:20:00 Pre-Reg r Clinic [facility] 21 [facility] 2017-07-03 2017-07-03 Outpatient MHIE MHIE [id number] [place] 14:20:00 14:20:00 22 [facility] 2017-06-18 2017-06-19 Outpatient nullFlavo [facility] [id number] [place] 20:20:00 05:59:59 r Clinic [facility] 20 [facility] 2017-06-12 2017-06-14 Phone nullFlavo [facility] [id number] [place] 17:41:00 05:59:59 Message r Clinic [facility] 24 [facility] 2017-06-13 2017-06-13 Ambulatory nullFlavo [facility] [id number] [facility] 20:20:00 20:20:00 Pre-Reg r Clinic [facility] 19 radha [place] 2017-06-12 2017-06-12 Ambulatory nullFlavo [facility] [id number] [facility] 16:20:00 16:20:00 Pre-Reg r Clinic [facility] 15 [facility] 2017-06-11 2017-06-11 Ambulatory nullFlavo [facility] [id number] [facility] 20:00:00 20:00:00 Pre-Reg r Clinic [facility] 16 [facility] 2017-06-06 2017-06-07 Outpatient nullFlavo [facility] [id number] [facility] 19:30:00 05:59:59 r Clinic [facility] 17 [facility] 2017-05-29 2017-05-30 Outpatient nullFlavo [facility] [id number] [facility] 19:20:00 05:59:59 r [facility] 14 [facility] 2017-05-28 2017-05-30 Phone nullFlavo [facility] [id number] [place] 17:01:00 05:59:59 Message r Clinic [facility] 23 [facility] 2017-05-23 2017-05-25 Phone nullFlavo [facility] [id number] [facility] 20:54:00 05:59:59 Message r Clinic [facility] 22 [facility] 2017-05-21 2017-05-22 Outpatient nullFlavo [facility] [id number] [facility] 17:20:00 05:59:59 r [facility] 13 [facility] 2017-05-20 2017-05-21 Outpatient nullFlavo [facility] [id number] [facility] 20:00:00 05:59:59 r Clinic [facility] 12 [facility] 2017-05-14 2017-05-15 Outpatient nullFlavo [facility] [id number] [facility] 21:03:00 05:59:00 r Outpatient 10 [facility] 2017-05-14 2017-05-15 Outpt Diag nullFlavo [facility] [id number] [place] 18:22:00 05:59:00 Services r Outpatient 11 [facility] 2017-04-29 2017-04-30 Outpatient nullFlavo [facility] [id number] [facility] 15:00:00 05:59:59 r Clinic [facility] 10 [place] 2017-04-26 2017-04-27 Outpatient nullFlavo [facility] [id number] [facility] 16:15:00 05:59:59 r Clinic [facility] 09 [place] 2017-04-06 2017-04-07 Outpt Diag nullFlavo [facility] [id number] [facility] 16:12:00 04:59:00 Services r Outpatient 09 l [facility] 2017-01-30 2017-01-30 Outpatient MHIE MHIE [id number] [facility] 10:45:00 10:45:00 08 [facility] 2016-11-07 2016-11-07 Outpatient MHIE MHIE [id number] [place] 10:45:00 10:45:00 07 [facility] 2016-08-27 2016-08-27 Outpatient MHIE MHIE [id number] [place] 11:00:00 11:00:00 06 [facility] 2016-08-14 2016-08-15 [id number] [facility] 13:00:00 05:59:00 Surgery r [place] 04 [facility] 2016-08-14 2016-08-14 Outpatient MHIE MHIE [id number] [place] 10:00:00 10:00:00 05 [facility] 2016-08-06 2016-08-06 Outpatient MHIE MHIE [id number] [facility] 11:15:00 11:15:00 04 radha [place] 2016-07-28 2016-07-29 Outpt Diag nullFlavo [facility] [id number] Mem[facility] 21:58:00 05:59:00 Services r Outpatient 08 l [facility] 2016-04-23 2016-04-23 Outpatient MHIE MHIE [id number] [place] 12:45:00 12:45:00 03 [facility] 2016-02-29 2016-02-29 Outpatient MHIE MHIE [id number] [place] 11:45:00 11:45:00 02 [facility] 2016 2016-02-15 Inpatient nullFlavo [facility] [id number] [place] 11:02:00 16:15:00 r [place] 03 [facility] 2016 2016 Outpatient MHIE MHIE [id number] [facility] 08:00:00 08:00:00 01 radha Clarke 2015-05-10 2015-05-11 Outpt Diag nullFlavo [facility] [id number] [facility] 20:29:00 05:59:00 Services r Outpatient 06 l Alcon Keith 2014-11-08 2014-11-09 Outpt Diag nullFlavo [facility] [id number] [facility] 12:35:00 04:59:00 Services r Outpatient 05 l Imaging Vince Clarke 2014-10-27 2014-10-28 Outpt Diag nullFlavo [facility] [id number] [facility] 19:17:00 04:59:00 Services r Outpatient 04 l Alcon Clarke 2013-12-23 2013-12-24 Outpt Diag nullFlavo [facility] [id number] [facility] 19:21:00 04:59:00 Services r Outpatient 03 l Alcon Clarke 2013-12-08 2013-12-09 Outpt Diag nullFlavo [facility] [id number] Mem[facility] 19:11:00 04:59:00 Services r Outpatient 02 Alcon Clarke Vince 2012-12-02 2012-12-02 CAMRYN nullFlavo [facility] [id number] Mem[facility] 09:55:00 12:45:00 [facility] 02 [facility] 2011-08-30 2011-08-31 Inpatient nullFlavo [facility] [id number] [facility] 08:06:00 21:30:00 [facility] 01 [facility] 2011-06-12 2011-06-12 CAMRYN nullFlavo [facility] [id number] [facility] 09:44:00 11:55:00 [facility] 00 [facility] Results Test Description Test Time Test Comments Results Result Comments Source SARS-CoV-2 (COVID-19) RNA [Presence] in Respiratory sp ecimen by 2021-07-17 15:52:03 ALEJANDRO with probe detection Test Item Value Reference Range Interpretation Comme nts SARS-CoV-2 (COVID-19) RNA [Presence] in Respiratory Not detected No t-Detected specimen by ALEJANDRO with probe detection (test code = 29276-5) 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 (test code = 81827-8) Whether the patient has symptoms related to condition of interest (test code = 24214-8) Patient was hospitalized because of this condition (test code = 97789-8) Whether the patient was admitted to intensive care unit (ICU) for condition of interest (test code = 75268-5) Whether patient resides in a congregate care setting (test code = 90129-1) MICHA RICHARDSSARS-CoV-2 (COVID-19) RNA [Presence] in Respiratory specimen by ALEJANDRO with probe [id number] 20:01:01 Test Item Value Reference Range Interpretation Comments SARS-CoV-2 (COVID-19) RNA Not detected Not-Detected [Presence] in Respiratory specimen by ALEJANDRO with probe detection (test code = 75506-5) 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 (test code = 92809-6) Whether the patient has symptoms related to condition of interest (test code = 66094-8) Patient was hospitalized because of this condition (test code = 96136-9) Whether the patient was admitted to intensive care unit (ICU) for condition of interest (test code = 64747-1) Whether patient resides in a congregate care setting (test code = 57304-4) MICHA RICHARDSSARS-CoV-2 (COVID-19) RNA [Presence] in Respiratory specimen by ALEJANDRO with probe [id number] 20:02:01 Test Item Value Reference Range Interpretation Comments SARS-CoV-2 (COVID-19) RNA Not detected Not-Detected [Presence] in Respiratory specimen by ALEJANDRO with probe detection (test code = 29303-6) 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 (test code = 65123-8) Whether the patient has symptoms related to condition of interest (test code = 22123-3) Patient was hospitalized because of this condition (test code = 31753-5) Whether the patient was admitted to intensive care unit (ICU) for condition of interest (test code = 86326-8) Whether patient resides in a congregate care setting (test code = 91129-6) MICHA RICHARDSSARS-CoV-2 (COVID-19) RNA [Presence] in Respiratory specimen by ALEJANDRO with probe [id number] 04:09:45 Test Item Value Reference Range Interpretation Comments SARS-CoV-2 (COVID-19) RNA Not detected Not-Detected [Presence] in Respiratory specimen by ALEJANDRO with probe detection (test code = 45278-0) 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 (test code = 96720-5) Whether the patient has symptoms related to condition of interest (test code = 95534-7) Patient was hospitalized because of this condition (test code = 06661-4) Whether the patient was admitted to intensive care unit (ICU) for condition of interest (test code = 12580-2) Whether patient resides in a congregate care setting (test code = 97303-7) MICHA KNUTSONRS-CoV-2 (COVID-19) RNA [Presence] in Respiratory specimen by ALEJANDRO with probe [id number] 20:04:23 Test Item Value Reference Range Interpretation Comments SARS-CoV-2 (COVID-19) RNA Not detected Not-Detected [Presence] in Respiratory specimen by ALEJANDRO with probe detection (test code = 03673-6) 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 (test code = 17395-6) Whether the patient has symptoms related to condition of interest (test code = 32367-7) Patient was hospitalized because of this condition (test code = 78388-6) Whether the patient was admitted to intensive care unit (ICU) for condition of interest (test code = 24985-2) Whether patient resides in a congregate care setting (test code = 14596-8) MICHA KNUTSONRS-CoV-2 (COVID-19) RNA [Presence] in Respiratory specimen by ALEJANDRO with probe [id number] 20:24:46 Test Item Value Reference Range Interpretation Comments SARS-CoV-2 (COVID-19) RNA Not detected Not-Detected [Presence] in Respiratory specimen by ALEJANDRO with probe detection (test code = 81215-9) 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 (test code = 65761-8) Whether the patient has symptoms related to condition of interest (test code = 71798-8) Patient was hospitalized because of this condition (test code = 24295-4) Whether the patient was admitted to intensive care unit (ICU) for condition of interest (test code = 25273-4) Whether patient resides in a congregate care setting (test code = 75662-9) MICHA Vallejo Coronavirus 2019 [id number] 05:32:00 Test Item Value Reference Range Interpretation [...] n. The testing is perf ormed by arias d in the procedures for the [employer] M2000 molecular diagnostic SARS-CoV-2 assa y in vitro. Novel Coronavirus 2018 [id number] 05:31:00 Test Item Value Reference Range Interpretation [...] for the identification of SARS-CoV-2 RNA usingthe [employer] M2000 Sy stem under the FDA Emergen cy UseAuthorizatio n. The testing is perf ormed by personnelroya d in the procedures for the [employer] M2000 molecular diagnostic SARS-CoV-2 assa y in vitro. C REACTIVE [id number] 18:18:00 Test Item Value Reference Range Interpretation Comments C REACTIVE PROTEIN (test code = < 0.2 mg/dL <0.9 CRP) COMPREHENSIVE METABOLIC [id number] 18:18:00 Test Item Value Reference Range Interpretation [...] RATE (test code = GFR) mL/mi n/1.73 t2Xnwmbsvcp Range:Healthy Adults >90 mL/min/1.73 m2 For Chronic Kidney Disease: Stage II Mild Decrease i n GFR 60-90 Stage III Moderate Decrea se in GFR 30-59 St age IV Severe Decre ase in GFR 15-29 St age V Kidney Failur e <15 CREATININE (test code 0.72 mg/dL 0.55-1.30 [...] TOTAL (test code = ALKP) CBC W/AUTO [id number] 18:12:00 Test Item Value Reference Range Interpretation [...] % 0-0 N code = NRBC) SED [id number] 18:12:00 Test Item Value Reference Range Interpretation Comments SED RATE (test code = SEDW) 17 mm/hr 0-20 N PROTHROMBIN [id number] 17:30:00 Test Item Value Reference Range Interpretation Comments PROTHROMBIN TIME 11.3 secs 10.1-12.5 N PATIENT (test code = PTP) INTERNATIONAL NORMAL 0.99 <2.0 RECOMME NDED THERAPEUTIC RATIO (test code = RANGE FOR ORAL INR) ANTICOAGULANTTR EATMENT: CONDITION INRPr ophylaxis of venous throm bosis in 2.0 - 3.0 high- risk medical or surg ical patientsTreatme nt of venous thrombos is 2.0 - 3.0Prevention o f embolism 2.0 - 3.0Prevention o f recurrent embol ism, or 3.0 - 4.5 patie nts with mechanical pros thetic intravascular v bal IS PATIENT ON ANTICOAGULANTS ? [facility] been notified if Patient is on Heparin Drip? NOIf Yes, orderCBC, OCCULT BLOOD, PT every other day NTHROMBOPLASTIN TIME [id number] 17:30:00 Test Item Value Reference Range Interpretation Comments PTT ACTIVATED (test code = APTT) 32.3 secs 24.9-37.0 N IS PATIENT ON ANTICOAGULANTS ? [facility] been notified if Patient is on [...] % 0-0 N code = NRBC) SED [id number] 17:12:00 Test Item Value Reference Range Interpretation Comments SED RATE (test code = SEDW) mm/hr 0-20 SARS-CoV-2 (COVID-19) RNA [Presence] in Respiratory specimen by ALEJANDRO with probe [id number] 19:39:45 Test Item Value Reference Range Interpretation Comments SARS-CoV-2 (COVID-19) RNA Not detected Not-Detected [Presence] in Respiratory specimen by ALEJANDRO with probe detection (test code = 28891-6) 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 (test code = 52916-2) Whether the patient has symptoms related to condition of interest (test code = 46865-5) Patient was hospitalized because of this condition (test code = 95920-2) Whether the patient was admitted to intensive care unit (ICU) for condition of interest (test code = 92749-0) Whether patient resides in a congregate care setting (test code = 01012-0) MICHA KNUTSONRS-CoV-2 (COVID-19) RNA [Presence] in Respiratory specimen by ALEJANDRO with probe [id number] 22:57:40 Test Item Value Reference Range Interpretation Comments SARS-CoV-2 (COVID-19) RNA Not detected Not-Detected [Presence] in Respiratory specimen by ALEJANDRO with probe detection (test code = 14878-7) MICAH RICHARDSSARS-CoV-2 (COVID-19) RNA [Presence] in Respiratory specimen by ALEJANDRO with probe [id number] 06:01:55 Test Item Value Reference Range Interpretation Comments SARS-CoV-2 (COVID-19) RNA Not detected Not-Detected [Presence] in Respiratory specimen by ALEJANDRO with probe detection (test code = 34660-0) MICHA RICHARDSSARS-CoV-2 (COVID-19) RNA [Presence] in Respiratory specimen by ALEJANDRO with probe [id number] 23:06:10 Test Item Value Reference Range Interpretation Comments SARS-CoV-2 (COVID-19) RNA Not detected Not-Detected [Presence] in Respiratory specimen by ALEJANDRO with probe detection (test code = 69669-6) [place] LOWER EXTRM W/O C [id number] 16:09:00 [facility] : 1960 Sex: F Patient Name: AYAH ALVARADO Unit No: [id number] EXAMS: CPT CODE: [id number] [place] LOWER EXTRM W/[place] [address] [place] OF THE LEFT PROXIMAL FEMUR AND [...] with ACR practice standards and adherence to corporate communications associate's recommendations. Minimal healing of the proximal femoral fracture is seen. Periosteal new bone formation is present. at 1609 Reported and signed by: Charles Perez MD CC: Antwan Nguyen MD Technologist: RT Mac(R) CTDI: DLP: Trnscrpt: 05/27/2020 (1603) t.[email or web address] [facility] NAME: AYAH ALVARADO [address] [facility] PHYS: BRIMA. - Antwan Nguyen MD : 1960 AGE: 60 SEX: F [place] [address] LOC: Y.RAD PHONE #: [phone] EXAM DATE: 05/27/2020 STATUS: REG CLI FAX #: [phone] RAD #: [id number] D/C DT PAGE 1 Signed Report Patient Name: AYAH ALVARADO Unit No: [id number] EXAMS: CPT CODE: [id number] CT LOWER EXTRM W/[place] [address] (Continued) Orig Print D/T: S: 05/27/2020 (1613) [facility] NAME: AYAH ALVARADOHAM [address] [facility] PHYS: BRIMA. - Antwan Nguyen MD : 1960 AGE: 60 SEX: F [place] [address] : Y.RAD PHONE #: [phone] EXAM DATE: 05/27/2020 STATUS: REG CLI FAX #: [phone] RAD #: [id number] D/C DT PAGE 2 Signed ReportBASIC METABOLIC [id number] 06:37:00 Test Item Value Reference Range Interpretation [...] RATE (test code = GFR) mL/mi n/1.73 i6Sftghhbtt Range:Healthy Adults >90 mL/min/1.73 m2 For Chronic Kidney Disease: Stage II Mild Decrease i n GFR 60-90 Stage III Moderate Decrea se in GFR 30-59 St age IV Severe Decre ase in GFR 15-29 St age V Kidney Failur e <15 CREATININE (test code 0.76 mg/dL 0.55-1.30 N = CREAT) CALCIUM (test code = 8.7 mg/dL 8.2-10.1 N CA) CBC W/AUTO [id number] 06:01:00 Test Item Value Reference Range Interpretation [...] 0 % 0-0 N code = NRBC) AB HIV 1 21:48:00 Test Item Value Reference Range Interpretation Comments AB HIV 1 2 (test NONREACTIVE NONREACTIVE Done by [employer] code = NYB01OC) 4th Gen HIV Ag/Ab Combo Screen ACUTE HEPATITIS [id number] 21:48:00 Test Item Value Reference Range Interpretation [...] NONREACTIVE NONREACTIVE DONE AT: [facility] = HIV1AB) [facility] [address] [place], [place] [address] by [employer] 4th Gen HIV Ag/Ab C ombo Screen ACUTE HEPATITIS [id number] 21:48:00 Test Item Value Reference Range Interpretation Comments AB HEPATITIS A IGM (test code = NONREACTIVE NONREACTIVE HAVMAB) AG HEPATITIS B SURFACE (test code NONREACTIVE NONREACTIVE = HBSAG) AB HEPATITIS B CORE IGM (test NONREACTIVE NONREACTIVE code = HBCMAB) AB HEPATITIS C (test code = NONREACTIVE NONREACTIVE HCVAB) SIGNAL TO CUTOFF (test code = 0.09 <0.80 N CUTOFF) ACUTE HEPATITIS [id number] 21:46:00 Test Item Value Reference Range Interpretation [...] (test code = HIV1AB) NONREACTIVE ACUTE HEPATITIS [id number] 21:46:00 Test Item Value Reference Range Interpretation [...] AB HIV 1 2 (test code = SGG93VE) NONREACTIVE ACUTE HEPATITIS [id number] 21:45:00 Test Item Value Reference Range Interpretation [...] (test code = HIV1AB) NONREACTIVE ACUTE HEPATITIS [id number] 21:44:00 Test Item Value Reference Range Interpretation [...] AB HIV 1 2 (test code = SFH23PY) NONREACTIVE ACUTE HEPATITIS [id number] 21:25:00 Test Item Value Reference Range Interpretation [...] (test code = HIV1AB) NONREACTIVE ACUTE HEPATITIS [id number] 21:24:00 Test Item Value Reference Range Interpretation [...] AB HIV 1 2 (test code = LEU42CN) NONREACTIVE COVID 19 Asymptomatic IH [id number] 18:48:00 Test Item Value Reference Range Interpretation Comments COVID 19 Asymptomatic IH AG (test NEGATIVE NEGATIVE code = COVNONPUIAG) CBC W/AUTO [id number] 18:32:00 Test Item Value Reference Range Interpretation [...] % 0-0 N code = NRBC) SED [id number] 18:32:00 Test Item Value Reference Range Interpretation Comments SED RATE (test code = SEDW) 20 mm/hr 0-20 N COMPREHENSIVE METABOLIC [id number] 18:05:00 Test Item Value Reference Range Interpretation [...] RATE (test code = GFR) mL/mi n/1.73 [id number] Range:Healthy Adults >90 mL/min/1.73 m2 For Chronic Kidney Disease: Stage II Mild Decrease i n GFR 60-90 Stage III Moderate Decrea se in GFR 30-59 St age IV Severe Decre ase in GFR 15-29 St age V Kidney Failur e <15 CREATININE (test code 0.72 mg/dL 0.55-1.30 [...] H TOTAL (test code = ALKP) PROTHROMBIN [id number] 17:20:00 Test Item Value Reference Range Interpretation Comments PROTHROMBIN TIME 10.9 secs 10.1-12.5 N PATIENT (test code = PTP) INTERNATIONAL NORMAL 0.97 <2.0 RECOMME NDED THERAPEUTIC RATIO (test code = RANGE FOR ORAL INR) ANTICOAGULANTTR EATMENT: CONDITION INRPr ophylaxis of venous throm bosis in 2.0 - 3.0 high- risk medical or surg ical patientsTreatme nt of venous thrombos is 2.0 - 3.0Prevention o f embolism 2.0 - 3.0Prevention o f recurrent embol ism, or 3.0 - 4.5 patie nts with mechanical pros thetic intravascular v bal IS PATIENT ON ANTICOAGULANTS ? N[facility] Lab been notified if Patient is on Heparin Drip? NOTHROMBOPLASTIN TIME [id number] 17:20:00 Test Item Value Reference Range Interpretation Comments PTT ACTIVATED (test code = APTT) 30.8 secs 24.9-37.0 N IS PATIENT ON ANTICOAGULANTS ? NHas Lab been notified if Patient is on Heparin Drip? NOCBC W/AUTO [id number] 17:06:00 Test Item Value Reference Range Interpretation [...] % 0-0 N code = NRBC) SED [id number] 17:06:00 Test Item Value Reference Range Interpretation Comments SED RATE (test code = SEDW) mm/hr 0-20 SARS-CoV-2 (COVID-19) RNA [Presence] in Respiratory specimen by ALEJANDRO with probe [id number] 03:45:06 Test Item Value Reference Range Interpretation Comments SARS-CoV-2 (COVID-19) RNA Not detected Not-Detected [Presence] in Respiratory specimen by ALEJANDRO with probe detection (test code = 80225-9) MICHA KNUTSONRS-CoV-2 (COVID-19) RNA [Presence] in Respiratory specimen by ALEJANDRO with probe [id number] 14:33:17 Test Item Value Reference Range Interpretation Comments SARS-CoV-2 (COVID-19) RNA Not detected Not-Detected [Presence] in Respiratory specimen by ALEJANDRO with probe detection (test code = 31969-2) MICHA CORTÉS [id number] 18:23:00 Test Item Value Reference Range Interpretation Comments Basophils # (test code 0.1 See_Comment [Aut omated message] The = Basophils #) system which generated this result tra nsmitted reference range : <=0.2. The reference r patricio was not used to int erpret this result as normal/abnormal . [facility]SpucwlfNKLFKDWPON9429-94-15 18:23:00 Test Item Value Reference Range Interpretation Comments Basophils (test code = 0.6 See_Comment [Aut omated message] The Basophils) system which ge nerated this result tra nsmitted reference range : <=1.0. The reference r patricio was not used to int erpret this result as normal/abnormal . [facility] C[id number] 18:23:00 Test Item Value Reference Range Interpretation Comments Lymphocytes # (test code = Lymphocytes 0.5 1.0-5.5 #) [facility] Cent[id number] 18:23:00 Test Item Value Reference Range Interpretation Comments Segs-Bands # (test code = Segs-Bands #) 7.2 1.5-8.1 [facility] [id number] 18:23:00 Test Item Value Reference Range Interpretation Comments Monocytes # (test code 0.4 See_Comment [Aut omated message] The = Monocytes #) system which generated this result tra nsmitted reference range : <=0.8. The reference r patricio was not used to int erpret this result as normal/abnormal . [facility] Cent[id number] 18:23:00 Test Item Value Reference Range Interpretation Comments Eosinophils (test code = 0.2 See_Comment [A utomated message] The Eosinophils) system which ge nerated this result tra nsmitted reference range : <=4.0. The reference r patricio was not used to int erpret this result as normal/abnormal . [facility] CenterVythzdrGTALTMTRNG4557-17-48 18:23:00 Test Item Value Reference Range Interpretation Comments Lymphocytes (test code = Lymphocytes) 6.6 20.0-40.0 [facility] Cent[id number] 18:23:00 Test Item Value Reference Range Interpretation Comments Segs (test code = Segs) 88.0 45.0-75.0 [facility] CenterOhvulviVKFLHHMAPT6698-87-79 18:23:00 Test Item Value Reference Range Interpretation Comments Monocytes (test code = Monocytes) 4.6 2.0-12.0 [facility] CenterNgzdnrtJMFBNHWYXA7322-50-92 18:23:00 Test Item Value Reference Range Interpretation Comments Hgb (test code = Hgb) 10.4 12.0-16.0 [facility] CenterWhnckzeXDSGJIBCGT8713-13-06 18:23:00 Test Item Value Reference Range Interpretation Comments WBC (test code = WBC) 8.2 3.7-10.4 [facility] C[id number] 18:23:00 Test Item Value Reference Range Interpretation Comments RBC (test code = RBC) 4.15 4.20-5.40 [facility] CenterTikduajXGHQUIHEAX4832-64-44 18:23:00 Test Item Value Reference Range Interpretation Comments MCHC (test code = MCHC) 31.4 32.0-36.0 [facility] CenterDlolexxSZXSSVJRBJ9435-73-95 18:23:00 Test Item Value Reference Range Interpretation Comments MCV (test code = MCV) 80.0 80.0-98.0 [facility] CenterZgsnahbXKEOAWEEWB5755-48-39 18:23:00 Test Item Value Reference Range Interpretation Comments MCH (test code = MCH) 25.1 pg 27.0-31.0 [facility] CenterVimvtjhRDNKTPMINS8976-92-23 18:23:00 Test Item Value Reference Range Interpretation Comments Hct (test code = Hct) 33.2 36.0-48.0 [facility] CenterYrtnpkzIGROTJXVUG6471-93-21 18:23:00 Test Item Value Reference Range Interpretation Comments RDW (test code = RDW) 19.7 11.5-14.5 [facility]RzwcdurRHBFRCIXBE0754-28-61 18:23:00 Test Item Value Reference Range Interpretation Comments MPV (test code = MPV) 7.9 7.4-10.4 [facility] HospitalXzboyfdYXNQIHZQGP2531-81-53 18:23:00 Test Item Value Reference Range Interpretation Comments Platelet (test code = Platelet) 280 133-450 [facility] [id number] 11:50:00 Test Item Value Reference Range Interpretation Comments Antibody Scrn (test Negative (02/14/16 6:50 code = Antibody Scrn) AM) [facility] [id number] 11:50:00 Test Item Value Reference Range Interpretation Comments ABO/Rh (test code = ABO/Rh) O POS [facility] [id number] 11:50:00 Test Item Value Reference Range Interpretation Comments eGFR (test code = eGFR) 84 [facility] [id number] 11:50:00 Test Item Value Reference Range Interpretation Comments Glucose Lvl (test code = Glucose Lvl) 76 70-99 [facility] [id number] 11:50:00 Test Item Value Reference Range Interpretation Comments AGAP (test code = AGAP) 16.0 10.0-20.0 [facility] [id number] 11:50:00 Test Item Value Reference Range Interpretation Comments Calcium Lvl (test code = Calcium Lvl) 8.2 8.5-10.5 [facility] [id number] 11:50:00 Test Item Value Reference Range Interpretation Comments CO2 (test code = CO2) 26 24-32 [facility] [id number] 11:50:00 Test Item Value Reference Range Interpretation Comments Creatinine Lvl (test code = Creatinine 0.79 0.50-1.40 Lvl) [facility] [id number] 11:50:00 Test Item Value Reference Range Interpretation Comments Potassium Lvl (test code = Potassium 4.0 3.5-5.1 Lvl) [facility] [id number] 11:50:00 Test Item Value Reference Range Interpretation Comments BUN (test code = BUN) 16 7-22 [facility] [id number] 11:50:00 Test Item Value Reference Range Interpretation Comments Sodium Lvl (test code = Sodium Lvl) 146 135-145 [facility]2016-09-06 11:50:00 Test Item Value Reference Range Interpretation Comments Chloride Lvl (test code = Chloride Lvl) 108 95-109 [facility] CenterJfjjvdoNYRQWTXYGT7468-82-32 11:50:00 Test Item Value Reference Range Interpretation Comments Lymphocytes # (test code = Lymphocytes 2.9 1.0-5.5 #) [facility] CenterZkjvsavSPGRJEOBNR1750-50-90 11:50:00 Test Item Value Reference Range Interpretation Comments Segs-Bands # (test code = Segs-Bands #) 3.4 1.5-8.1 [facility] CenterPqiiizrTJUMYUTLUH5894-33-61 11:50:00 Test Item Value Reference Range Interpretation Comments Basophils (test code = 1.1 See_Comment [Aut omated message] The Basophils) system which ge nerated this result tra nsmitted reference range : <=1.0. The reference r patricio was not used to int erpret this result as normal/abnormal . [facility] CenterAbgvldaSZCYHYHLLH0890-86-76 11:50:00 Test Item Value Reference Range Interpretation Comments Eosinophils (test code = 2.1 See_Comment [A utomated message] The Eosinophils) system which ge nerated this result tra nsmitted reference range : <=4.0. The reference r patricio was not used to int erpret this result as normal/abnormal . [facility] CenterSlkspgnAOCWEUIISF2695-22-55 11:50:00 Test Item Value Reference Range Interpretation Comments Anisocyte (test code = 1+ *ABN*(02/14/16 6:50 Anisocyte) AM) [facility] CenterLprzfknJGTZXJANIF3101-84-77 11:50:00 Test Item Value Reference Range Interpretation Comments Basophils # (test code 0.1 See_Comment [Aut omated message] The = Basophils #) system which generated this result tra nsmitted reference range : <=0.2. The reference r patricio was not used to int erpret this result as normal/abnormal . [facility] CenterLqhwsriTTRPUGSKVW9701-96-74 11:50:00 Test Item Value Reference Range Interpretation Comments Eosinophils # (test code 0.2 See_Comment [A utomated message] The = Eosinophils #) system ic h generated this result tra nsmitted reference range : <=0.5. The reference r patricio was not used to int erpret this result as normal/abnormal . [facility] CenterNrhhstbBMPPIMTGHW6604-40-80 11:50:00 Test Item Value Reference Range Interpretation Comments Monocytes # (test code 0.7 See_Comment [Aut omated message] The = Monocytes #) system which generated this result tra nsmitted reference range : <=0.8. The reference r patricio was not used to int erpret this result as normal/abnormal . [facility] CenterDxyalzzLTMQBUEATZ0271-20-53 11:50:00 Test Item Value Reference Range Interpretation Comments Monocytes (test code = Monocytes) 9.5 2.0-12.0 [facility] CenterMcpbbzlIMFVSZHCSU1837-92-36 11:50:00 Test Item Value Reference Range Interpretation Comments Lymphocytes (test code = Lymphocytes) 39.6 20.0-40.0 [facility] CenterBqootmvWIIYHORPVH9384-37-56 11:50:00 Test Item Value Reference Range Interpretation Comments Segs (test code = Segs) 47.7 45.0-75.0 [facility] CenterCjsyitoEWJUCUKECR5230-90-58 11:50:00 Test Item Value Reference Range Interpretation Comments MPV (test code = MPV) 7.2 7.4-10.4 [facility] CenterTygamxmKPSLQWKEKZ7975-89-40 11:50:00 Test Item Value Reference Range Interpretation Comments Platelet (test code = Platelet) 301 133-450 [facility] CenterHnivwdrPATUPNFOLB5066-43-77 11:50:00 Test Item Value Reference Range Interpretation Comments RDW (test code = RDW) 22.6 11.5-14.5 [facility] CenterGpfpmruTGRTITYZVO9760-94-20 11:50:00 Test Item Value Reference Range Interpretation Comments Hct (test code = Hct) 30.2 36.0-48.0 [facility] CenterQdrvoycWADEZYDGYP1372-67-31 11:50:00 Test Item Value Reference Range Interpretation Comments MCV (test code = MCV) 80.7 80.0-98.0 [facility] CenterMfycinkWILCEEGBKT8168-24-64 11:50:00 Test Item Value Reference Range Interpretation Comments MCH (test code = MCH) 25.3 pg 27.0-31.0 [facility] CenterXukhycgLSVTVHPUKE9963-99-52 11:50:00 Test Item Value Reference Range Interpretation Comments MCHC (test code = MCHC) 31.3 32.0-36.0 [facility] CenterBotvqjmKSASRABWKC4409-75-15 11:50:00 Test Item Value Reference Range Interpretation Comments WBC (test code = WBC) 7.2 3.7-10.4 [facility] CenterNhdwtwcPQGLRLBEVJ7429-99-30 11:50:00 Test Item Value Reference Range Interpretation Comments RBC (test code = RBC) 3.74 4.20-5.40 [facility] CenterPaqkximLQOZTFOSWK8625-19-70 11:50:00 Test Item Value Reference Range Interpretation Comments Hgb (test code = Hgb) 9.5 12.0-16.0 [facility]IdqybkxSKXRXELWE6618-93-68 08:37:00 Test Item Value Reference Range Interpretation Comments AGAP (test code = AGAP) 12.0 10.0-20.0 N [facility] SystemXclwpytGLHWTWCEB6546-83-97 08:37:00 Test Item Value Reference Range Interpretation Comments B/C Ratio (test code = B/C Ratio) 13 6-25 N [facility] SystemZlbukykJCCCMFOTH6705-21-84 08:37:00 Test Item Value Reference Range Interpretation Comments Globulin (test code = Globulin) 2.3 2.0-4.0 N [facility] SystemIvcbcuuLVJJMQCSJ2380-24-94 08:37:00 Test Item Value Reference Range Interpretation Comments A/G Ratio (test code = A/G Ratio) 1.3 0.7-1.6 N [facility] SystemVqrelxhLXLBZIHVE7824-54-34 08:37:00 Test Item Value Reference Range Interpretation Comments Alk Phos (test code = Alk Phos) 93 39-136 N [facility] SystemKprdcyiWYMAJKVVM3084-54-80 08:37:00 Test Item Value Reference Range Interpretation Comments ALT (test code = ALT) 179 See_Comment H [Auto mated message] The system which ge nerated this result transmit lupe reference range : <=65. The reference range was not used to interpr et this result as mercedes l/abnormal. [facility] SystemYomgxikGXRZMKCGC8653-30-05 08:37:00 Test Item Value Reference Range Interpretation Comments Bili Total (test code = Bili Total) 0.5 0.2-1.3 N [facility] SystemTdveccfKXLWAIPIU8462-28-54 08:37:00 Test Item Value Reference Range Interpretation Comments AST (test code = AST) 186 See_Comment H [Auto mated message] The system which ge nerated this result transmit lupe reference range : <=37. The reference range was not used to interpr et this result as mercedes l/abnormal. [facility] SystemBfjzswcGKPEXANET5418-79-56 08:37:00 Test Item Value Reference Range Interpretation Comments Sodium Lvl (test code = Sodium Lvl) 141 135-145 N [facility] SystemWrczwejHZHYVHTKO9082-60-96 08:37:00 Test Item Value Reference Range Interpretation Comments Creatinine Lvl (test code = Creatinine 0.6 0.5-1.4 N Lvl) [facility] SystemDsyfdvkZNSLPRCVC7008-24-86 08:37:00 Test Item Value Reference Range Interpretation Comments Glucose Lvl (test code = Glucose Lvl) 78 70-99 N [facility] SystemRcwsmzqRMRFWWFHA9171-02-36 08:37:00 Test Item Value Reference Range Interpretation Comments BUN (test code = BUN) 8 7-22 N [facility] SystemWztqhaiOSGUHRTQQ7880-80-59 08:37:00 Test Item Value Reference Range Interpretation Comments Total Protein (test code = Total 5.4 6.4-8.4 L Protein) [facility]QqdlwzyALKDZJZAJ3513-63-39 08:37:00 Test Item Value Reference Range Interpretation Comments Albumin Lvl (test code = Albumin Lvl) 3.1 3.5-5.0 L [facility] SystemVyruszmMHWIZIPNS5327-48-75 08:37:00 Test Item Value Reference Range Interpretation Comments Potassium Lvl (test code = Potassium 4.0 3.5-5.1 N Lvl) [facility] SystemCszjpzgIKPLCLMOL9407-30-75 08:37:00 Test Item Value Reference Range Interpretation Comments Calcium Lvl (test code = Calcium Lvl) 8.1 8.5-10.5 L [facility] SystemVbrihrwGGXTNOFOX0838-00-79 08:37:00 Test Item Value Reference Range Interpretation Comments Chloride Lvl (test code = Chloride Lvl) 104 95-109 N [facility] SystemPmgnxxxNEMHQJAJK2314-95-65 08:37:00 Test Item Value Reference Range Interpretation Comments CO2 (test code = CO2) 29 24-32 N [facility]VwkoytlKPHAYDCTVQ8606-53-28 08:37:00 Test Item Value Reference Range Interpretation Comments Eosinophils # (test code 0.1 See_Comment N [A utomated message] The = Eosinophils #) system whic h generated this result tra nsmitted reference range : <=0.5. The reference r patricio was not used to int erpret this result as normal/abnormal . [facility] CenterSwbwvyaOQCOAFSMYV4824-25-00 08:37:00 Test Item Value Reference Range Interpretation Comments Monocytes # (test code 0.5 See_Comment N [Aut omated message] The = Monocytes #) system which generated this result tra nsmitted reference range : <=0.8. The reference r patricio was not used to int erpret this result as normal/abnormal . [facility] CenterPmpqzvuKWKBCZSZMQ9681-91-41 08:37:00 Test Item Value Reference Range Interpretation Comments Lymphocytes # (test code = Lymphocytes 0.8 1.0-5.5 L #) [facility] CenterSqvpltjBVMGIFLVKU8005-04-13 08:37:00 Test Item Value Reference Range Interpretation Comments Basophils (test code = 0.1 See_Comment N [Aut omated message] The Basophils) system which ge nerated this result tra nsmitted reference range : <=1.0. The reference r patricio was not used to int erpret this result as normal/abnormal . [facility] CenterAexasneEPEAQFJKGM1460-10-73 08:37:00 Test Item Value Reference Range Interpretation Comments Segs-Bands # (test code = Segs-Bands #) 7.2 1.5-8.1 N [facility] CenterCccjjqyRDMPWXXZOP9972-86-70 08:37:00 Test Item Value Reference Range Interpretation Comments Segs (test code = Segs) 84.2 45.0-75.0 H [facility] CenterZqklufmLSILUGRLKJ7308-46-95 08:37:00 Test Item Value Reference Range Interpretation Comments Lymphocytes (test code = Lymphocytes) 8.8 20.0-40.0 L [facility] CenterJhymzjaZFUTIVIVUQ6459-82-32 08:37:00 Test Item Value Reference Range Interpretation Comments Eosinophils (test code = 0.8 See_Comment N [A utomated message] The Eosinophils) system which ge nerated this result tra nsmitted reference range : <=4.0. The reference r patricio was not used to int erpret this result as normal/abnormal . [facility] CenterNicdpmpUHACYOJPZK7674-46-52 08:37:00 Test Item Value Reference Range Interpretation Comments Monocytes (test code = Monocytes) 6.1 2.0-12.0 N [facility] CenterMuzfqvqVUHEYDYEAB3444-69-85 08:37:00 Test Item Value Reference Range Interpretation Comments Hct (test code = Hct) 30.4 36.0-48.0 L [facility] CenterQpcvvulXAEUJPETZH4809-38-63 08:37:00 Test Item Value Reference Range Interpretation Comments MCHC (test code = MCHC) 32.7 32.0-36.0 N [facility] CenterYyromveIVFECEFUYB9071-22-29 08:37:00 Test Item Value Reference Range Interpretation Comments RDW (test code = RDW) 15.9 11.5-14.5 H [facility] CenterJqqrhwbLPCPWMMLQS8178-91-23 08:37:00 Test Item Value Reference Range Interpretation Comments MCH (test code = MCH) 28.3 pg 27.0-31.0 N [facility] CenterJqvihigLUJZZNZYTM8519-46-16 08:37:00 Test Item Value Reference Range Interpretation Comments MCV (test code = MCV) 86.5 81.0-99.0 N [facility] CenterDacevmtBEFJHKEUNM9467-32-26 08:37:00 Test Item Value Reference Range Interpretation Comments MPV (test code = MPV) 8.7 7.4-10.4 N [facility] CenterPlckbadAMNFTYYCGN1821-95-20 08:37:00 Test Item Value Reference Range Interpretation Comments Platelet (test code = Platelet) 163 133-450 N [facility] CenterJoxjjqnIWGWPMAMHF6109-08-00 08:37:00 Test Item Value Reference Range Interpretation Comments WBC (test code = WBC) 8.6 3.7-10.4 N [facility] CenterMuqiquvITEWFFQYLV8260-95-13 08:37:00 Test Item Value Reference Range Interpretation Comments Hgb (test code = Hgb) 10.0 12.0-16.0 L [facility] CenterMcnltisZFFDJNEKCF1301-73-80 08:37:00 Test Item Value Reference Range Interpretation Comments RBC (test code = RBC) 3.52 4.20-5.40 L [facility] AQKVFDG0672-52-76 22:00:00 Test Item Value Reference Range Interpretation Comments ABO/Rh (test code = ABO/Rh) O POS [facility] LRSZTSL4811-92-38 22:00:00 Test Item Value Reference Range Interpretation Comments Antibody Scrn (test Negative (08/24/2011 N code = Antibody Scrn) 17:00:00) [facility] SystemQeeemfsXXLGRLHHK4753-91-61 22:00:00 Test Item Value Reference Range Interpretation Comments CO2 (test code = CO2) 29 24-32 N [facility] SystemKbbimkmJAAFNNREF2314-67-69 22:00:00 Test Item Value Reference Range Interpretation Comments Chloride Lvl (test code = Chloride Lvl) 104 95-109 N [facility] SystemDioyvywFMBNVJRVU2026-03-58 22:00:00 Test Item Value Reference Range Interpretation Comments Sodium Lvl (test code = Sodium Lvl) 141 135-145 N [facility] SystemTdzzqttPTXVKTVRI8387-90-15 22:00:00 Test Item Value Reference Range Interpretation Comments Potassium Lvl (test code = Potassium 4.3 3.5-5.1 N Lvl) [facility] SystemRgmtrgkSFZJPBTIV2943-82-24 22:00:00 Test Item Value Reference Range Interpretation Comments Alk Phos (test code = Alk Phos) 79 39-136 N [facility] SystemObafidpXDDZLGGZA6346-15-47 22:00:00 Test Item Value Reference Range Interpretation Comments Bili Total (test code = Bili Total) 0.3 0.2-1.3 N [facility] SystemIcflnseLKMCANZYA8611-14-09 22:00:00 Test Item Value Reference Range Interpretation Comments Albumin Lvl (test code = Albumin Lvl) 3.9 3.5-5.0 N [facility] SystemWkeiqbcGQOWJATEP1569-46-22 22:00:00 Test Item Value Reference Range Interpretation Comments ALT (test code = ALT) 39 See_Comment N [Auto mated message] The system which ge nerated this result transmit lupe reference range : <=65. The reference range was not used to interpr et this result as mercedes l/abnormal. [facility] SystemXskrntjROBHRXUQF7442-16-77 22:00:00 Test Item Value Reference Range Interpretation Comments Calcium Lvl (test code = Calcium Lvl) 8.7 8.5-10.5 N [facility] SystemWpohyjiMBBAFJEWJ9119-85-57 22:00:00 Test Item Value Reference Range Interpretation Comments Total Protein (test code = Total 7.5 6.4-8.4 N Protein) [facility] SystemStigcopQHIHXZXLY7782-14-26 22:00:00 Test Item Value Reference Range Interpretation Comments BUN (test code = BUN) 14 7-22 N [facility] SystemRrnwwacILJTEQHPW8233-50-13 22:00:00 Test Item Value Reference Range Interpretation Comments Glucose Lvl (test code = Glucose Lvl) 85 [facility] SystemGzmagcgFULFDIUVW5751-25-90 22:00:00 Test Item Value Reference Range Interpretation Comments Creatinine Lvl (test code = Creatinine 0.9 0.5-1.4 N Lvl) [facility] SystemHumervgNPLVWHFMQ7890-96-45 22:00:00 Test Item Value Reference Range Interpretation Comments AST (test code = AST) 27 See_Comment N [Auto mated message] The system which ge nerated this result transmit lupe reference range : <=37. The reference range was not used to interpr et this result as mercedes l/abnormal. [facility] SystemUmrojvlDDOQPDWFV1910-07-47 22:00:00 Test Item Value Reference Range Interpretation Comments Globulin (test code = Globulin) 3.6 2.0-4.0 N [facility] SystemQdygnugIAKIBIYRO5448-57-29 22:00:00 Test Item Value Reference Range Interpretation Comments AGAP (test code = AGAP) 12.3 10.0-20.0 N [facility] SystemByocwiwDJSHYBFZL3702-87-63 22:00:00 Test Item Value Reference Range Interpretation Comments B/C Ratio (test code = B/C Ratio) 16 6-25 N [facility] SystemQzyrzzmUZTMPTSBY4912-62-10 22:00:00 Test Item Value Reference Range Interpretation Comments A/G Ratio (test code = A/G Ratio) 1.1 0.7-1.6 N [facility] CenterNwlwtvjZMCLGJNFBN0107-36-87 22:00:00 Test Item Value Reference Range Interpretation Comments Basophils # (test code 0.0 See_Comment N [Aut omated message] The = Basophils #) system which generated this result tra nsmitted reference range : <=0.2. The reference r patricio was not used to int erpret this result as normal/abnormal . [facility] CenterMmjgjmwJPOXMMHIMF8839-31-46 22:00:00 Test Item Value Reference Range Interpretation Comments Basophils (test code = 0.5 See_Comment N [Aut omated message] The Basophils) system which ge nerated this result tra nsmitted reference range : <=1.0. The reference r patricio was not used to int erpret this result as normal/abnormal . [facility] CenterBczcfcwVEPGAOBGYU6529-47-09 22:00:00 Test Item Value Reference Range Interpretation Comments Segs-Bands # (test code = Segs-Bands #) 5.2 1.5-8.1 N [facility] CenterItpyqyrOWXGEPSKOR7085-72-57 22:00:00 Test Item Value Reference Range Interpretation Comments Eosinophils (test code = 0.7 See_Comment N [A utomated message] The Eosinophils) system which ge nerated this result tra nsmitted reference range : <=4.0. The reference r patricio was not used to int erpret this result as normal/abnormal . [facility] CenterKbnktvqDBZTLVJYHM7326-66-29 22:00:00 Test Item Value Reference Range Interpretation Comments Lymphocytes (test code = Lymphocytes) 30.8 20.0-40.0 N [facility] CenterVzwpmakBCYGJAMPLG5663-46-51 22:00:00 Test Item Value Reference Range Interpretation Comments Monocytes (test code = Monocytes) 6.1 2.0-12.0 N [facility] CenterCdqrwosBXUENESLLH7287-83-94 22:00:00 Test Item Value Reference Range Interpretation Comments Eosinophils # (test code 0.1 See_Comment N [A utomated message] The = Eosinophils #) system whic h generated this result tra nsmitted reference range : <=0.5. The reference r patricio was not used to int erpret this result as normal/abnormal . [facility] CenterNhtipudIHDPFPPRPW6303-54-65 22:00:00 Test Item Value Reference Range Interpretation Comments Monocytes # (test code 0.5 See_Comment N [Aut omated message] The = Monocytes #) system which generated this result tra nsmitted reference range : <=0.8. The reference r patricio was not used to int erpret this result as normal/abnormal . [facility] CenterTrzsejdYGLXFKRLAD0422-45-30 22:00:00 Test Item Value Reference Range Interpretation Comments Lymphocytes # (test code = Lymphocytes 2.6 1.0-5.5 N #) [facility] CenterCxdgitoWCKQHFYMYE5400-41-19 22:00:00 Test Item Value Reference Range Interpretation Comments Segs (test code = Segs) 61.9 45.0-75.0 N [facility] CenterGildbveRJLWTOEGFV9726-74-99 22:00:00 Test Item Value Reference Range Interpretation Comments PTT (test code = PTT) 28.5 s 22.9-35.8 N [facility] CenterXxoghbyWKXWYLBMNR7215-10-46 22:00:00 Test Item Value Reference Range Interpretation Comments PT (test code = PT) 12.3 s 12.0-14.7 N [facility] CenterBhgtcveDEXCRFGHBX0563-44-34 22:00:00 Test Item Value Reference Range Interpretation Comments INR (test code = INR) 0.91 0.85-1.17 N [facility] CenterTmyxxezSMJFLUFRCD3527-19-86 22:00:00 Test Item Value Reference Range Interpretation Comments RDW (test code = RDW) 15.9 11.5-14.5 H [facility] CenterIekbgmdUTFBDQGZJN8290-41-46 22:00:00 Test Item Value Reference Range Interpretation Comments MCHC (test code = MCHC) 33.1 32.0-36.0 N [facility] CenterHeetlawMXLRUMZZEI9696-97-51 22:00:00 Test Item Value Reference Range Interpretation Comments MCH (test code = MCH) 28.1 pg 27.0-31.0 N [facility] CenterGpjryrjBRZTGXLJDJ5699-31-86 22:00:00 Test Item Value Reference Range Interpretation Comments Platelet (test code = Platelet) 244 133-450 N [facility] CenterVpbvgtiYTIAQKLQMV2071-14-58 22:00:00 Test Item Value Reference Range Interpretation Comments MPV (test code = MPV) 8.1 7.4-10.4 N [facility] CenterFjonprzELFFZXLRTF2765-71-63 22:00:00 Test Item Value Reference Range Interpretation Comments Hgb (test code = Hgb) 12.3 12.0-16.0 N [facility] CenterHuzwbcqDSQYHITXOC4039-37-57 22:00:00 Test Item Value Reference Range Interpretation Comments Hct (test code = Hct) 37.1 36.0-48.0 N [facility] CenterLsgimtsANAXLYQTQR7349-58-46 22:00:00 Test Item Value Reference Range Interpretation Comments WBC (test code = WBC) 8.4 3.7-10.4 N [facility] CenterTxfamlyFPQFXPHACC5771-04-51 22:00:00 Test Item Value Reference Range Interpretation Comments RBC (test code = RBC) 4.37 4.20-5.40 N [facility] CenterGkkiybiGPFPCUINFT0392-85-54 22:00:00 Test Item Value Reference Range Interpretation Comments MCV (test code = MCV) 84.8 81.0-99.0 N [facility] CenterGakfimsZVYYNHBJNK5888-98-77 22:00:00 Test Item Value Reference Range Interpretation Comments HIV 1/2 Ab (test code Negative *NA*(08/24/2011 = HIV 1/2 Ab) 17:00:00) [facility]JadqyjdEYCXOEZCIP5996-96-04 21:20:00 Test Item Value Reference Range Interpretation Comments UA Urobilinogen (test code *NA*(08/24/2011 0.1-1.0 = UA Urobilinogen) 16:20:00) [facility]JyroocoQVPWYWJIQE0376-21-23 21:20:00 Test Item Value Reference Range Interpretation Comments UA Ketones (test code Negative mg/dL = UA Ketones) *NA*(08/24/2011 16:20:00) [facility]IdevavgKPTYSWAKNV6504-54-00 21:20:00 Test Item Value Reference Range Interpretation Comments UA Protein (test code Negative mg/dL N = UA Protein) (08/24/2011 16:20:00) [facility]KjxndcpQWDALIYJLY8538-55-31 21:20:00 Test Item Value Reference Range Interpretation Comments UA Glucose (test code Negative mg/dL = UA Glucose) *NA*(08/24/2011 16:20:00) [facility]MvvzjqxLRTUAOSOSM5549-30-81 21:20:00 Test Item Value Reference Range Interpretation Comments UA Blood (test code = Negative (08/24/2011 N UA Blood) 16:20:00) [facility] PasoUlfwissMPXAKWUPIH1278-67-41 21:20:00 Test Item Value Reference Range Interpretation Comments UA Bili (test code = Negative *NA*(08/24/2011 UA Bili) 16:20:00) [facility] PasoCgvnxqgCAPDOOKCTO2169-60-10 21:20:00 Test Item Value Reference Range Interpretation Comments Micro? (test code = Not Indicated Micro?) *NA*(08/24/2011 16:20:00) [facility] PasoHcxijsnSKXCCCSOHT3342-06-44 21:20:00 Test Item Value Reference Range Interpretation Comments UA Turbidity (test code = Clear (08/24/2011 N UA Turbidity) 16:20:00) [facility] PasoIstlnkrRJUSAVXTAH1090-35-00 21:20:00 Test Item Value Reference Range Interpretation Comments UA Color (test code = Yellow *NA*(08/24/2011 UA Color) 16:20:00) [facility] PasoKughmeaZYUOOKNLBQ0194-33-02 21:20:00 Test Item Value Reference Range Interpretation Comments UA pH (test code = UA pH) 6.5 5.0-8.0 N [facility]YfhyvxjRQVUXAJOAC6280-30-58 21:20:00 Test Item Value Reference Range Interpretation Comments UA Spec Grav (test code = UA Spec Grav) 1.012 N [facility] DallasXwxryfqGLTNBMVJXW2792-05-74 21:20:00 Test Item Value Reference Range Interpretation Comments UA Leuk Est (test Negative (08/24/2011 N code = UA Leuk Est) 16:20:00) [facility] CenterXzbvgdwTPHOAHVCRI1824-61-60 21:20:00 Test Item Value Reference Range Interpretation Comments UA Nitrite (test code Negative (08/24/2011 N = UA Nitrite) 16:20:00) [facility]
--- NOTE | 2022-05-20 14:05 | RAD REPORT ---
EXAM DESCRIPTION: CT - CTHCSPWOC - 05/20/2022 1:46 pm CLINICAL HISTORY: Trauma, head and neck injury. ams COMPARISON: None TECHNIQUE: Axial 5 mm thick images of the head were obtained. Axial 2 mm thick images of the cervical spine were obtained with sagittal and coronal reconstruction images generated and reviewed. All CT scans are performed using dose optimization technique as appropriate and may include automated exposure control or mA/KV adjustment according to patient size. FINDINGS: CT HEAD WITHOUT CONTRAST: No acute hemorrhage, hydrocephalus or extra-axial collection is identified.No areas of brain edema or midline shift. The paranasal sinuses and mastoids are clear.The calvarium is intact. CT CERVICAL SPINE WITHOUT CONTRAST: No acute fracture of the cervical spine. Status post C5-6 ACDF. Anterolisthesis and presumably remote fracture at the T3 level. Partially imaged thoracic fusion hardware extending from this level caudal ly. Multilevel degenerative changes are present in the spine trace anterolisthesis C4 on C5 which is presumably chronic. IMPRESSION: No acute intracranial or cervical spine findings.
--- NOTE | 2022-05-20 14:38 | RAD REPORT ---
EXAM DESCRIPTION: RAD - Chest Single View - 05/20/2022 2:28 pm CLINICAL HISTORY: fall COMPARISON: <Comparisons> FINDINGS: Lines: None. Lungs: No evidence of edema or pneumonia. Pleural: No significant pleural effusions or pneumothorax. Cardiac: The heart size is within normal limits. Mediastinum: Within normal limits. Bones: No acute fractures. Fusion hardware in the spine. Remote right-sided rib fractures. Other: None IMPRESSION: No acute cardiopulmonary disease.
[2022-05-20 14:43] LABS: Absolute Lymphocytes (CBC) 0.5 K/uL (0.7-4.9); Hematocrit 26.6 % (36.0-45.0); MCV 83.5 fL (80-100); MPV 7.7 fL (7.6-11.3); RBC Red Blood Cell Count 3.19 M/uL (3.86-4.86)
[2022-05-20 15:01] LABS: Magnesium 2.2 mg/dL (1.6-2.4); Potassium 3.7 mmol/L (3.5-5.1)
[2022-05-20 15:05] LABS: Troponin High Sensitivity 63.2 pg/mL (<58.9)
[2022-05-20] MEDS ORDERED: NA CHLORIDE 0.9% 1,000 ML ONE (16:19)
[2022-05-20 16:51] LABS: Urine Blood Negative (Negative); Urine Glucose Negative (Negative); Urine Protein 1+ (Negative); Urine pH 5.5 (5.0-7.0)
[2022-05-20 16:59] LABS: Urine Bacteria <20 /HPF (<20); Urine Mucus Slight /HPF (None Seen); Urine RBC <5 /HPF (None Seen); Urine WBC Clump Rare /HPF (None Seen)
[2022-05-20] MEDS ORDERED: Levofloxacin500mg IV 500 MG/100 ML BAG IV ONE (18:15)
--- NOTE | 2022-05-20 19:22 | RAD REPORT ---
EXAM DESCRIPTION: RAD - Hip Left 2 View - 05/20/2022 7:14 pm CLINICAL HISTORY: PAIN COMPARISON: 09/15/2020 FINDINGS/IMPRESSION: Left total hip arthroplasty. Interval revision of the left hip arthroplasty. No periprosthetic fractures or loosening. No dislocation. No acute fracture.
[2022-05-20 19:27] LABS: SARS-CoV-2 Antigen Rapid Res Negative (Negative)
--- NOTE | 2022-05-20 20:30 | ER ---
Nurse's Notes [facility] Name: Lucrecia Vargas Age: 62 yrs Sex: Female : 1960 Arrival Date: 05/20/2022 Time: 13:16 Bed 2 Private MD: Elliot Hdz V Diagnosis: Altered mental status, unspecified;Visual hallucinations;Dehydration Presentation: 05/20 13:23 Chief complaint: Patient states: She was wheeling through the house in her WC and went kb3 down a small 2-3 inch step and tipped her WC over. Her friend and her spouse went to pick her up off the floor. Pt reports that she was headed to the back room to find people and she was going to Novadiol. Friend reports pt had a TIA in June 2021. Pt reports she cannot find her pain medications and must have put them somewhere in a bag. Friend reports her medications are all poured into a box and mixed together. Coronavirus screen: Vaccine status: Patient reports receiving the 2nd dose of the covid vaccine. Client denies travel out of the [place] in the last 14 days. Ebola Screen: Patient negative for fever greater than or equal to 101.5 degrees Fahrenheit, and additional compatible Ebola Virus Disease symptoms Patient denies exposure to infectious person. Patient denies travel to an Ebola-affected area in the 21 days before illness onset. Initial Sepsis Screen: Does the patient meet any 2 criteria? No. Patient's initial sepsis screen is negative. Does the patient have a suspected source of infection? No. Patient's initial sepsis screen is negative. Risk Assessment: Do you want to hurt yourself or someone else? Patient reports no desire to harm self or others. Onset of symptoms was May 20, 2022 at 07:00. 13:23 Method Of Arrival: Wheelchair kb3 13:23 Acuity: ROSARIO 3 kb3 Triage Assessment: 13:33 General: Appears in no apparent distress. Behavior is calm, cooperative. Pain: kb3 Complains of pain in back of neck and posterior chest Pain does not radiate. Pain currently is 8 out of 10 on a pain scale. Quality of pain is described as aching, Pain began Chronic. Historical: - Allergies: 13:33 No Known Allergies; kb3 - Home Meds: 13:33 Unable to obtain [Active]; kb3 - PMHx: 13:33 acid reflux; Depression; Endometriosis; Sjogren's Syndrome; Hypertension; Rheumatoid kb3 Arthritis; Chronic pain; Hip prosthetic dislocation; Shoulder pain - bilateral; - PSHx: 13:33 Hip Replacement; kb3 - Immunization history:: Adult Immunizations up to date, Client reports receiving the 2nd dose of the Covid vaccine, Last tetanus immunization: unknown. - Social history:: Smoking status: Patient denies any tobacco usage or history of. Screenin:15 Abuse screen: Denies threats or abuse. Nutritional screening: No deficits noted. vg1 Tuberculosis screening: No symptoms or risk factors identified. Fall Risk Fall in past 12 months (25 points). Secondary diagnosis (15 points) TIA, IV access (20 points). Ambulatory Aid- Crutches/Cane/Walker (15 pts). Gait- Normal/Bed Rest/Wheelchair (0 pts) Mental Status- Oriented to own ability (0 pts). Total Fairchild Fall Scale indicates High Risk Score (45 or more points). Fall prevention measures have been instituted. Side Rails Up X 2 Placed Close to Nursing Station Family Present and informed to notify staff if the need to leave the bedside As available patient and family educated on Fall Prevention Program and Strategies. Assessment: 13:50 General: Appears in no apparent distress. uncomfortable, Behavior is calm, cooperative. vg1 Pain: Complains of pain in back Pain currently is 7 out of 10 on a pain scale. Pain began Pt stated "always have back pain". Neuro: Level of Consciousness is awake, alert, obeys commands, Oriented to person, place, time, situation, Reports dizziness, Denies headache. Cardiovascular: Patient's skin is warm and dry. Respiratory: Airway is patent Respiratory effort is even, unlabored. GI: Abdomen is flat, Reports nausea. : No signs and/or symptoms were reported regarding the genitourinary system. EENT: No signs and/or symptoms were reported regarding the EENT system. Derm: Skin is thin, Skin is pink, warm \\T\\ dry. Musculoskeletal: Circulation, motion, and sensation intact. 15:10 Reassessment: Patient appears in no apparent distress at this time. No changes from vg1 previously documented assessment. Patient and/or family updated on plan of care and expected duration. Pain level reassessed. Patient is alert, oriented x 3, equal unlabored respirations, skin warm/dry/pink. Pt stated "I see a group of medical people in the room, it looks like there are being trained; im seeing things" Pt able to stated person, place, time, and situation. Provider notified. 16:21 Reassessment: No changes from previously documented assessment. Patient and/or family bp updated on plan of care and expected duration. Pain level reassessed. PT AGREES TO STRAIGHT CATH FOR UOP. 17:30 Reassessment: Patient appears in no apparent distress at this time. Patient and/or vg1 family updated on plan of care and expected duration. Pain level reassessed. Patient is alert, oriented x 3, equal unlabored respirations, skin warm/dry/pink. 18:08 Reassessment: called inside lab for assistance with second set of cultures. vg1 20:12 General: Appears in no apparent distress. uncomfortable, Behavior is calm, cooperative. kd3 Neuro: Level of Consciousness is awake, alert, obeys commands, Oriented to person, place, time, situation. Vital Signs: 13:23 BP 102 / 71; Pulse 76; Resp 20; Temp 97; Weight 54.43 kg; Height 5 ft. 3 in. (160.02 kb3 cm); Pain 5/10; 14:13 Pulse Ox 97% ; vg1 15:00 BP 102 / 62; Pulse 70; Resp 17; Pulse Ox 95% on R/A; vg1 16:00 BP 87 / 60; Pulse 71; Resp 16; Pulse Ox 100% ; vg1 16:30 BP 115 / 74; Pulse 74; Resp 13; Pulse Ox 96% on R/A; vg1 17:30 BP 113 / 74; Pulse 70; Resp 12; Pulse Ox 97% on R/A; vg1 20:12 BP 147 / 90; Pulse 75; Resp 11; Pulse Ox 98% on R/A; kd3 20:50 BP 132 / 85; Pulse 81; Resp 17; Pulse Ox 98% on R/A; kd3 13:23 Body Mass Index 21.26 (54.43 kg, 160.02 cm) kb3 ED Course: 13:16 Patient arrived in ED. am2 13:17 Elliot Hdz MD is Private Physician. am2 13:22 Yann Jacobs DO is Attending Physician. ms3 13:33 Triage completed. kb3 13:33 Arm band placed on right wrist. kb3 13:40 Carla Crow, RN is Primary Nurse. vg1 13:46 CT Head C Spine Sent. bp 13:47 CT Head C Spine In Process Unspecified. EDMS 14:15 Patient has correct armband on for positive identification. Bed in low position. Call vg1 light in reach. Side rails up X2. Adult w/ patient. Client placed on continuous cardiac and pulse oximetry monitoring. NIBP monitoring applied. 14:20 Inserted saline lock: 22 gauge in left antecubital area, using aseptic technique. Blood bp collected. 14:30 XRAY Chest (1 view) In Process Unspecified. EDMS 16:52 Straight cath inserted, using sterile technique, 16 Fr. Specimen obtained. Returned vg1 bel urine. Patient tolerated well. 18:06 First set of blood cultures drawn by me. em1 19:16 Hip Left 2 View XRAY In Process Unspecified. EDMS 19:30 Primary Nurse role handed off by Carla Crow RN mw2 19:32 Attending Physician role handed off by Yann Jacobs DO rn 19:32 Shaan Marte MD is Attending Physician. rn 20:02 Asiya Cuba, KELSEY is Primary Nurse. kd3 20:12 Warm blanket given. PO fluids given. sandwich given. kd3 20:29 Elliot Hdz MD is Hospitalizing Provider. rn 20:35 administrative approval given by Nazario Harris/ patient has been accepted to [facility]w2 in the [facility] to the [facility] bed 708/ Efrain Griffiths accepted the patient in transfer/report to be called to [phone]. 21:18 No provider procedures requiring assistance completed. Patient transferred, IV remains kd3 in place. Administered Medications: 16:21 Drug: NS 0.9% 1000 ml Route: IV; Rate: 1000 ml; Site: left antecubital; vg1 19:05 Follow up: IV Status: Completed infusion; IV Intake: 1000ml vg1 18:14 Not Given (Physician Discretion): LevaQUIN (levofloxacin) 250 mg 50 ml IVPB once over vg1 60 mins 20:08 Drug: LevaQUIN (levofloxacin) 500 mg Volume: 100 ml; Route: IVPB; Infused Over: 60 kd3 mins; Site: left antecubital; 21:04 Follow up: Response: No adverse reaction; IV Status: Completed infusion kd3 Medication: 14:16 VIS not applicable for this client. vg1 Intake: 19:05 IV: 1000ml; Total: 1000ml. vg1 Outcome: 20:29 Decision to Hospitalize by Provider. rn 20:37 ER care complete, transfer ordered by MD. rn 21:19 Transferred by ground EMS to [facility]. kd3 21:19 Condition: stable 21:19 Condition: stable 21:19 Discharge instructions given to patient, family, Instructed on discharge instructions, follow up and referral plans. Demonstrated understanding of instructions, follow-up care. 21:19 Patient left the ED. kd3 Signatures: Dispatcher [employer] EDMS Shaan Marte MD MD rn Martinez, Eric em1 Marianna Herbert am2 Gee Galvez RN RN bp Mikki Stallworth mw2 Carla Crow RN RN vg1 Yann Jacobs DO DO ms3 Asiya Cuba RN RN kd3 Megan Diaz RN RN kb3 Corrections: (The following items were deleted from the chart) 13:37 13:33 Home Meds: Atenolol Oral; kb3 kb3 13:37 13:33 Home Meds: duloxetine Oral; kb3 kb3 13:37 13:33 Home Meds: hydroxychloroquine Oral; kb3 kb3 13:37 13:33 Home Meds: leflunomide Oral; kb3 kb3 13:37 13:33 Home Meds: losartan Oral; kb3 kb3 13:37 13:33 Home Meds: Methocarbamol Oral; kb3 kb3 13:37 13:33 Home Meds: Mirtazapine Oral; kb3 kb3 13:37 13:33 Home Meds: Prednisone Oral; kb3 kb3 13:37 13:33 Home Meds: Prilosec Oral; kb3 kb3 13:37 13:33 Home Meds: Vitamin D Oral; kb3 kb3 13:37 13:33 PSHx: 6 hip replacments SX; kb3 kb3 14:15 13:50 Neuro: Level of Consciousness is awake, alert, obeys commands, Oriented to vg1 person, place, time, situation, vg1 16:53 16:21 BP 87 / 60; Pulse 71bpm; Resp 16bpm; Pulse Ox 100%; bp vg1
--- NOTE | 2022-05-20 20:30 | EDPHYS ---
Physician Documentation [facility] Name: Lucrecia Vargas Age: 62 yrs Sex: Female : 1960 Arrival Date: 05/20/2022 Time: 13:16 Bed 2 Private MD: Elliot Hdz V ED Physician Shaan Marte HPI: 05/20 13:49 This 62 yrs old Unknown Female presents to ER via Wheelchair with complaints of Fall ms3 Injury, confusion. 13:49 Details of fall: The patient fell from seated position, out of a wheelchair. Onset: The ms3 symptoms/episode began/occurred today. Associated injuries: The patient sustained no obvious injury. Severity of symptoms: At their worst the symptoms were mild, in the emergency department the symptoms are unchanged. Historical: - Allergies: 13:33 No Known Allergies; kb3 - Home Meds: 13:33 Unable to obtain [Active]; kb3 - PMHx: 13:33 acid reflux; Depression; Endometriosis; Sjogren's Syndrome; Hypertension; Rheumatoid kb3 Arthritis; Chronic pain; Hip prosthetic dislocation; Shoulder pain - bilateral; - PSHx: 13:33 Hip Replacement; kb3 - Immunization history:: Adult Immunizations up to date, Client reports receiving the 2nd dose of the Covid vaccine, Last tetanus immunization: unknown. - Social history:: Smoking status: Patient denies any tobacco usage or history of. ROS: 13:49 Constitutional: Negative for fever, and chills. Neck: Negative for injury, pain, and ms3 swelling, Cardiovascular: Negative for chest pain, and palpitations. Respiratory: Negative for shortness of breath, cough, wheezing, and pleuritic chest pain, Abdomen/GI: Negative for abdominal pain, nausea, vomiting, diarrhea, and constipation, MS/Extremity: Negative for injury and deformity, Skin: Negative for injury, rash, and discoloration. 13:49 Constitutional: 13:49 Neuro: Positive for Confusion. 13:49 All other systems are negative. Exam: 13:49 Constitutional: This is a well developed, well nourished patient who is awake, alert, ms3 and in no acute distress. Neck: Trachea midline, no cervical lymphadenopathy. Supple, full range of motion without nuchal rigidity, or vertebral point tenderness. No Meningismus. Chest/axilla: Normal chest wall appearance and motion. Nontender with no deformity. Cardiovascular: Regular rate and rhythm with a normal S1 and S2. No gallops, murmurs, or rubs. Normal PMI, no JVD. No pulse deficits. Respiratory: Lungs have equal breath sounds bilaterally, clear to auscultation and percussion. No rales, rhonchi or wheezes noted. No increased work of breathing, no retractions or nasal flaring. Abdomen/GI: Soft, non-tender, with normal bowel sounds. No distension or tympany. No guarding or rebound. No evidence of tenderness throughout. Skin: Warm, dry with normal turgor. Normal color with no rashes, no lesions, and no evidence of cellulitis. MS/ Extremity: Pulses equal, no cyanosis. Neurovascular intact. Full, normal range of motion. 13:49 Head/face: Noted is contusion, that is superficial, of the forehead. 14:06 ECG was reviewed by the Attending Physician. ms3 Vital Signs: 13:23 BP 102 / 71; Pulse 76; Resp 20; Temp 97; Weight 54.43 kg; Height 5 ft. 3 in. (160.02 kb3 cm); Pain 5/10; 14:13 Pulse Ox 97% ; vg1 15:00 BP 102 / 62; Pulse 70; Resp 17; Pulse Ox 95% on R/A; vg1 16:00 BP 87 / 60; Pulse 71; Resp 16; Pulse Ox 100% ; vg1 16:30 BP 115 / 74; Pulse 74; Resp 13; Pulse Ox 96% on R/A; vg1 17:30 BP 113 / 74; Pulse 70; Resp 12; Pulse Ox 97% on R/A; vg1 20:12 BP 147 / 90; Pulse 75; Resp 11; Pulse Ox 98% on R/A; kd3 20:50 BP 132 / 85; Pulse 81; Resp 17; Pulse Ox 98% on R/A; kd3 13:23 Body Mass Index 21.26 (54.43 kg, 160.02 cm) kb3 MDM: 13:38 Patient medically screened. 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 Data reviewed: vital signs, nurses notes, lab test result(s), radiologic studies, and as a result, I will admit patient. Counseling: I had a detailed discussion with the patient and/or guardian regarding: the historical points, exam findings, and any diagnostic results supporting the discharge/admit diagnosis, lab results, radiology results, the need for further work-up and treatment in the hospital. Admission orders: after a detailed discussion of the patient's condition and case, the admit orders are written by me. 05/20 13:38 Order name: Basic Metabolic Panel; Complete Time: 15:05 ms3 05/20 13:38 Order name: CBC with Diff; Complete Time: 14:54 ms3 05/20 13:38 Order name: Magnesium; Complete Time: 15:05 ms3 05/20 13:38 Order name: Troponin HS; Complete Time: 15:05 ms3 05/20 13:39 Order name: Urine Microscopic Only; Complete Time: 17:09 ms3 05/20 16:51 Order name: Urine Dipstick-Ancillary; Complete Time: 17:09 EDMS 05/20 13:22 Order name: CT Head C Spine; Complete Time: 14:51 snw 05/20 13:38 Order name: XRAY Chest (1 view); Complete Time: 14:51 ms3 05/20 17:31 Order name: Procalcitonin; Complete Time: 18:34 ms3 05/20 17:31 Order name: Lactate w/ 2H reflex if indic.; Complete Time: 18:34 ms3 05/20 17:32 Order name: Blood Culture Adult (2) ms3 05/20 17:41 Order name: CRP; Complete Time: 18:34 ms3 05/20 18:05 Order name: Hip Left 2 View XRAY; Complete Time: 19:25 ms3 05/20 18:34 Order name: SARS RAPID; Complete Time: 19:29 ms3 05/20 13:38 Order name: EKG; Complete Time: 13:39 ms3 05/20 13:38 Order name: Cardiac monitoring; Complete Time: 14:12 ms3 05/20 13:38 Order name: EKG - Nurse/Tech; Complete Time: 14:12 ms3 05/20 13:38 Order name: IV Saline Lock; Complete Time: 14:20 ms3 05/20 13:38 Order name: Labs collected and sent; Complete Time: 14:20 ms3 05/20 13:38 Order name: O2 Per Protocol; Complete Time: 14:12 ms3 05/20 13:38 Order name: O2 Sat Monitoring; Complete Time: 14:12 ms3 05/20 13:39 Order name: Urine Dipstick-Ancillary (obtain specimen); Complete Time: 16:51 ms3 EC:06 Rate is 70 beats/min. Rhythm is regular. QRS [place] is Normal. CA interval is normal. QRS ms3 interval is normal. Clinical impression: NSR w/ Non-specific ST/T Changes. Interpreted by me. Reviewed by me. Administered Medications: 16:21 Drug: NS 0.9% 1000 ml Route: IV; Rate: 1000 ml; Site: left antecubital; vg1 19:05 Follow up: IV Status: Completed infusion; IV Intake: 1000ml vg1 18:14 Not Given (Physician Discretion): LevaQUIN (levofloxacin) 250 mg 50 ml IVPB once over vg1 60 mins 20:08 Drug: LevaQUIN (levofloxacin) 500 mg Volume: 100 ml; Route: IVPB; Infused Over: 60 kd3 mins; Site: left antecubital; 21:04 Follow up: Response: No adverse reaction; IV Status: Completed infusion kd3 Disposition Summary: 05/20/22 20:37 Transfer Ordered Transfer Location: [facility] rn Reason: Higher level of care rn Condition: Stable(05/20/22 20:37) rn Problem: new(05/20/22 20:37) rn Symptoms: have improved(05/20/22 20:37) rn Accepting Physician: Dr. Burger(05/20/22 21:19) kd3 Diagnosis - Altered mental status, unspecified(05/20/22 20:37) rn - Visual hallucinations rn - Dehydration(05/20/22 20:37) rn Forms: - Medication Reconciliation Form rn - SBAR form rn Signatures: Dispatcher [employer] EDMS Shaan Marte MD MD rn Page, Corey, PA PA cp Garcia, Victoria RN RN vg1 Yann Jacobs DO DO ms3 Asiya Cuba, RN RN kd3 Megan Diaz, RN RN kb3 Corrections: (The following items were deleted from the chart) 13:37 13:33 Home Meds: Atenolol Oral; kb3 kb3 13:37 13:33 Home Meds: duloxetine Oral; kb3 kb3 13:37 13:33 Home Meds: hydroxychloroquine Oral; kb3 kb3 13:37 13:33 Home Meds: leflunomide Oral; kb3 kb3 13:37 13:33 Home Meds: losartan Oral; kb3 kb3 13:37 13:33 Home Meds: Methocarbamol Oral; kb3 kb3 13:37 13:33 Home Meds: Mirtazapine Oral; kb3 kb3 13:37 13:33 Home Meds: Prednisone Oral; kb3 kb3 13:37 13:33 Home Meds: Prilosec Oral; kb3 kb3 13:37 13:33 Home Meds: Vitamin D Oral; kb3 kb3 13:37 13:33 PSHx: 6 hip replacments SX; kb3 kb3 20:37 20:29 Inpatient Admission rn rn 20:37 20:29 Elliot Hdz rn rn 20:37 20:29 Telemetry/MedSurg (Inpatient) rn rn 20:37 20:29 Stable rn rn 20:37 20:29 new rn rn 20:37 20:29 are unchanged rn rn 20:37 20:29 Standard rn rn 20:37 20:29 rn rn 20:37 20:29 Altered mental status, unspecified rn rn 20:37 20:29 Dehydration rn rn 20:37 20:29 Hallucinations, unspecified rn rn 21:19 20:37 Dr. Burger rn kd3
[2022-05-20 21:29] VITALS: TEMP 97
[2022-05-20 21:48] VITALS: O2SAT 98
[2022-05-20 21:50] VITALS: BP 132/85
--- NOTE | 2022-05-21 14:58 | EKG ---
Test Date: 2022-05-20 Test Time: 14:06:40 [employer]ship: MEASUREMENT RESULTS: Intervals: Rate: 70 MO: 154 QRSD: 82 QT: 456 QTc: 492 Points: P: 62 MO: 154 QRS: 47 T: 56 INTERPRETIVE STATEMENTS: Normal sinus rhythm Prolonged QT Abnormal ECG Compared to ECG 02/15/2020 12:58:10 No significant changes Electronically Signed On 05-21-22 14:55:29 [employer] by Terry Camp
== END 2022-05-20 21:19 | disposition short-term general hospital (02) ==
LOC: ER 13:16
DX: E86.0 Dehydration (principal); R44.1 Visual hallucinations; I10 Essential (primary) hypertension; Z20.822 Contact with and (suspected) exposure to COVID-19
CPT/HCPCS: 96365; 96361; 93005; 87040 ×2; 85025; 80048; 36415; 83735; 83605; 84484; 84145; 86140; 70450; 72125; 71045; 73502; 51702; 99285; 87811; J7030; 81003; 81015

== ENCOUNTER 2022-08-15 12:27 | Emergency (ER) | payer OTHER ==
--- OUTSIDE RECORDS SUMMARY | 2022-08-15 12:59 | XMS REPORT | Continuity of Care Document ---
:[address] [facility] t Address [address] [place] [address] Care Team Providers Name Role Phone Rosy Gee Everett Primary Care Physician Kameron Mondrgaon Attending Clinician Unavailable Shelly Smith DO Attending Clinician ISRAEL KONG Attending Clinician Unavailable Tucker Sebastian Attending Clinician REX OHARA Attending Clinician Unavailable TARA LINDSEY Attending Clinician Unavailable AALIYAH CARPENTER Attending Clinician Unavailable NICOLASA MUÑOZ Attending Clinician Unavailable RUSS SETHI Attending Clinician Unavailable MD YANET MONTEZ Attending Clinician Unavailable TIFFANIE LEONG Attending Clinician Unavailable Alanna Attending Clinician Unavailable YVETTE FIELD Attending Clinician Unavailable Lizz Freitas Attending Clinician [phone] KAREN HUNTER Attending Clinician Unavailable MD REX OHARA Attending Clinician Unavailable JING BURNETTE Attending Clinician Unavailable DO ANTHONY LOPEZ Attending Clinician Unavailable ANISH TEJEDA Attending Clinician Unavailable MD YANET MONTEZ Attending Clinician Unavailable MD TUTU GRAHAM Attending Clinician Unavailable MD TARA LINDSEY Attending Clinician Unavailable ASHLEY BEYER Attending Clinician Unavailable MD ASHLEY BEYER Attending Clinician Unavailable Antwan Ngyuen Attending Clinician Unavailable Arturo MAAMEAnnalisa Attending Clinician Doctor Unassigned, [employer] Attending Clinician Unavailable MARÍA GARCIA Attending Clinician Unavailable JESSICA PAZ Attending Clinician Unavailable Pasha Goldstein Attending Clinician Collins Le Attending Clinician Viviana Douglas Attending Clinician Kala Angel Attending Clinician Kan Chiang Jr Attending Clinician Yvette Anaya Jr Attending Clinician Kameron Mondragon Admitting Clinician Unavailable Physician, No Primary or Family Admitting Clinician UnavailClotilde Kilgore Admitting Clinician REX OHARA Admitting Clinician Unavailable YANET MONTEZ Admitting Clinician Unavailable MARTHA_Marly_Jo-Ann Admitting Clinician Unavailable YVETTE FIELD Admitting Clinician Unavailable Tucker Sebastian Admitting Clinician MD REX OHARA Admitting Clinician Unavailable ANTHONY LOPEZ Admitting Clinician Unavailable DO ANTHONY LOPEZ Admitting Clinician Unavailable TUTU GRAHAM Admitting Clinician Unavailable MD YANET MONTEZ Admitting Clinician Unavailable MD TUTU GRAHAM Admitting Clinician Unavailable TARA LINDSEY Admitting Clinician Unavailable MD TARA LINDSEY Admitting Clinician Unavailable MERCED SMITH Admitting Clinician Unavailable ASHLEY BEYER Admitting Clinician Unavailable MD ASHLEY BEYER Admitting Clinician Unavailable ANGELIQUE LEWIS Admitting Clinician Unavailable MD ANGELIQUE LEWIS Admitting Clinician Unavailable JESSICA PAZ Admitting Clinician Unavailable Pasha Goldstein Admitting Clinician Payers Payer Name Policy Type Policy Number Effective Date Expiration Date S ource [employer]ET[employer] CHOICE [id number] 2000 2024 00:00:00 POS II 00:00:00 AETNA [id number] 2000 00:00:00 PEPE Barb [id number] 2017 00:00:00 Problems Condition Condition Condition Status Onset Resolution Last Treating Co mments Source Name Details Category Date Date Treatment Clinician Date UNSP UNSP Diagnosis Active 2022-07-21 Mem oria KYPHOSIS, KYPHOSIS, 2 15:48:00 l SITE UNSP SITE UNSP 00:00: Herm cielo Active 00 07/12/2022 MH [facility] ANKYLOSING ANKYLOSIN Diagnosis Active 2022-08-08 Memoria SPONDYLITI G 07-12 23:40:00 l S/SCOLIOSI SPONDYLITI 00:00: He rmann S/ REV PO S/SCOLIOSI 00 S/ REV PO Active 07/12/2022 MH [facility] 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 spondyloli Spondyloli 0-20 Or thope sthesis sthesis 00:00: dic 00 Sports Medicin e FOLLOW UP FOLLOW UP Diagnosis Active 2021-10-31 Memoria AFTER D/C AFTER D/C 08-12 15:38:00 l Active 00:00: Vince 08/12/2021 00 MH [facility] CORD CORD Diagnosis Active 2021-07-26 Mem oria COMPRESSIO COMPRESSIO 07-12 19:52:00 l N/ N/ 00:00: Vince STENOSIS/ STENOSIS/ 00 CAUDA CAUDA EQUINA EQUINA Active 07/12/2021 [facility] ANEMIA ANEMIA Diagnosis Active 2021-07-21 Me moria Active 07-12 16:49:00 l 07/12/2021 00:00: Tomy macias [facility] 00 Bacterial Bacterial Problem Active Aza philly infection [...] Sports Medicin e Revision Revision Problem Active 2021-0 Azale a of hip of Hip 5-04 Orthope replacemen Replacemen 00:00: di c t t 00 Sports Medicin e Osteoarthr Osteoarthr Problem Active 2019-06 A lazarolea itis of itis of 2-14 Orthope foot [...] Medicin e Intertroch Intertroch Problem Active A lazarolea anteric anteric 9-28 Orthope fracture Fracture 00:00: dic 00 Sports Medicin e Closed Closed Problem Active Khushbu fracture Fracture 9-03 Orthop e of of 00:00: dic metatarsal Metatarsal 00 Sp orts bone of Bone of Medicin right foot Right Foot e 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 8-17 Or thope e raised e Raised 00:00: dic 00 Sports Medicin e History of History of [...] Medicin e Impingemen Impingemen Problem Active A zalea t syndrome t Syndrome 1-03 Or thope of of 00:00: dic shoulder Shoulder 00 Sports region Region Medicin e Winged Winged Problem Active Khushbu scapula Scapula 1-03 Orthope 00:00: dic 00 Sports Medicin e Pain of Pain of Problem Active Khushbu left Left 1-03 Orthope shoulder Shoulder 00:00: dic joint Joint 00 Sports Medicin e Hyperphosp Hyperphosp Problem Active A rusatmluiz hatemia hatemia 8-28 Orthope 00:00: dic 00 Sports Medicin e Hypogammag Hypogammag Problem Active A lazaromichaelluiz lobulinemi lobulinemi 8 Or thope a a 00:00: dic 00 Sports Medicin e Vitamin D Vitamin D Problem Active Chace fraga deficiency Deficiency 718 Or thope 00:00: dic 00 Sports Medicin e Mixed Mixed Problem Active Khushbu anxiety Anxiety 7-18 Orthope and and 00:00: dic depressive Depressive 00 Sp orts disorder Disorder Medici n e Gastroesop Gastroesop Problem Active A miguel angel hageal hageal 7-18 Orthope reflux Reflux 00:00: dic disease Disease 00 Sports Medicin e Postsurgic Postsurgic Problem Active A miguel angel morris 7-18 Orthope menopause Menopause 00:00: dic 00 Sports Medicin e Foot pain Foot Pain Problem Active Chace rodrigueza 7-18 Orthope 00:00: dic 00 Sports Medicin e Osteopenia Osteopenia Problem Active A miguel angel 7-18 Orthope 00:00: dic 00 Sports Medicin e Family Family Problem Active Khushbu history of History of 718 Or thope stroke Stroke 00:00: dic 00 Sports Medicin e Patient Patient Problem Active Khushbu care Care 7-18 Orthope statuses Statuses 00:00: dic 00 Sports Medicin e Seronegati Seronegati Problem Active Luiz michelle ve ve 4-09 Orthope rheumatoid Rheumatoid 00:00: di c arthritis Arthritis 00 Spor ts Medicin e Complicati Complicati Problem Active Luiz goodrich of on of 1-21 Orthope internal Internal 00:00: dic prosthetic Prosthetic 00 Sp orts device Device Medicin e Pain in Pain in Problem Active Khushbu right hip Right Hip 8 Orth ope joint Joint 00:00: dic 00 Sports Medicin e Arthralgia Arthralgia Problem Active A zalea of the of the 6- Orthope ankle Ankle 00:00: dic and/or And/or 00 Sports foot Foot Medicin e Pain due Pain Due Problem Active Azale a to to 6-11 Orthope internal Internal 00:00: dic prosthetic Prosthetic 00 Sp orts device Device Medicin e Pseudarthr Pseudarthr Problem Active A 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 osis after 6- Or thope fusion or Fusion or 00:00: dic arthrodesi Arthrodesi 00 Sp orts s s Medicin e Degenerati Degenerati Problem Active A zalea ve joint ve Joint 5-30 Orthop e disease Disease 00:00: dic involving Involving 00 Spor ts multiple Multiple Medici n joints Joints e Numbness Numbness Problem Active Azale a of hand of Hand 5-30 Orthope 00:00: dic 00 Sports Medicin e Replacemen Replacemen Problem Active A zalea t of total t of Total 5-25 Or thope knee joint Knee Joint 00:00: di c 00 Sports Medicin e Lumbosacra Lumbosacra Problem Active A lazarolea l l 2-23 Orthope spondylosi Spondylosi 00:00: di c s with s with 00 Sports radiculopa Radiculopa Me dicin thy thy e Acquired Acquired Problem Active Azale a scoliosis Scoliosis 2-23 Orth ope 00:00: dic 00 Sports Medicin e Rheumatoid [...] angel n of foot n of Foot 1-06 Orth ope joint Joint 00:00: dic 00 Sports Medicin e LUMBAR LUMBAR Diagnosis Active 2016-08-14 Me moria HERNIATED HERNIATED - 07:03:00 l DISC DISC 00:00: Vince Active 00 08/06/2016 [facility] M54.16 - M54.16 - Diagnosis Active 2015-062016-05-19 Memoria "RADICULOP "RADICULOP 0-24 16:22:00 l ATHY, ATHY, 00:01: [place] LUMBAR LUMBAR 00 REGION" REGION" Active 04/02/2016 [facility] [place] Localized, Localized, Problem Active 2015-06 A zalea primary Primary 0-12 Orthope osteoarthr Osteoarthr 00:00: di c itis itis 00 Sports Medicin e HERNIATED HERNIATED Diagnosis Active 2016-08-28 Memoria DISCS DISCS 8-24 18:04:00 l Active 00:00: Vince 02/01/2016 00 [facility] Anemia Anemia Problem Active Khushbu 6-20 Orthope 00:00: dic 00 Sports Medicin e Osteoarthr Osteoarthr Problem Active A zalea itis of itis of -20 Orthope knee Knee 00:00: dic 00 Sports Medicin e Cervical Cervical Problem Active Azale a spondylosi Spondylosi 6-20 Or thope s s 00:00: dic 00 Sports Medicin e M25.561 - M25.561 - Diagnosis Active 2014-062015-05-17 Memoria PAIN IN PAIN IN 1-20 12:44:00 l RIGHT KNEE RIGHT KNEE 00:01: He rmann Active 00 04/29/2015 [facility] [place] GERD,[id number] GERD,[id number] Diagnosis Active 2012-12-02 Memoria 5 Active 6- 10:06:00 l 11/27/2012 00:00: Tomy macias 00 [facility] GASTROGAST GASTROGAS Diagnosis Active 2011-08-30 Memoria DWIGHT TRIC 3-14 15:24:00 l FISTULA FISTULA 00:00: Vince Active 00 08/22/2011 [facility] Anxiety Anxiety Problem Active 2012-12-04 Me moria Active 06-10 20:55:13 l 06/10/2011 00:00: Tomy n Problem 00 12/04/2012 RACHELLE Clarke,[facility] Anxiety Anxiety Problem Active 2022-08-06 Me moria (finding) (finding) 06-10 00:18:04 l Active 00:00: [place] 06/10/2011 00 Problem 08/06/2022 Medical Group,[facility] her Neuro,[facility], [facility], RACHELLE Clarke, [facility], RACHELLE Keith,Melissa [facility] GERD GERD Diagnosis Active 2010-062011-06-12 Mem oria 530.11 530.11 09:55:00 l Active 00:00: [place] 06/07/2011 00 [facility] Unspecifie Unspecifi Problem 2021-08-11 Memoria d cord ed cord 22:57:39 l compressio compressio He rmann n n 08/11/2021 [facility] UNSPECIFIE UNSPECIFI Diagnosis Active 2021-07-26 Memoria D CORD ED CORD 19:52:00 l COMPRESSIO COMPRESSIO He rmann N N Active [facility] SPINAL SPINAL Diagnosis Active 2021-07-26 Me moria STENOSIS, STENOSIS, 19:52:00 l SITE SITE Vince UNSPECIFIE UNSPECIFIE D D Active [facility] CAUDA CAUDA Diagnosis Active 2021-07-26 Mem oria EQUINA EQUINA 19:52:00 l SYNDROME SYNDROME Tomy n Active [facility] Scoliosis, Scoliosis Problem 2017-11-25 Memoria unspecifie , 14:11:46 l d unspecifie Tomy n d 11/25/[facility] [place] Low back Low back Problem 2017-11-25 Memoria pain pain 14:11:46 l 11/25/2017 Tomy macias [facility] Radiculopa Radiculop Problem 2017-11-25 Memoria thy, athy, 14:11:46 l lumbar lumbar Vince region region 11/25/2017 [facility] Other Other Problem 2017-11-25 Teofilo osiris specified specified 14:11:46 l disorders disorders Herm cielo of bone of bone density density and and structure, structure, other site other site 11/25/2017 [facility] Ankylosing Ankylosin Problem Resolve 2021-11-03 Memoria spondyliti g d 01:40:28 l s spondyliti Tomy n (disorder) s (disorder) Resolved Problem 11/03/2021 Medical Group,[facility] her Neuro,[facility], [facility], RACHELLE Clarke, [facility], [facility] [place] Endometrio Problem Resolve 2021-11-03 Memoria sis Endometrio d 01:40:28 l (disorder) sis Tomy n (disorder) Resolved Problem 11/03/2021 Medical Group,[facility] her Neuro,[facility], [facility], RACHELLE Clarke,[facility], [facility] [place] Ankylosing Ankylosin Problem Resolve 2012-12-04 Memoria spondyliti g d 20:55:13 l s spondyliti Tomy n s Resolved Problem 12/04/2012 [facility] Endometrio Endometri Problem Resolve 2012-12-04 Memoria sis osis d 20:55:13 l Resolved [place] Problem 12/04/2012 [facility] Gastric Gastric Disease Active [place] bypass bypass Health status for status for obesity obesity Reflux Reflux Problem Active 2012-12-04 Mem oria Active 20:55:13 l Problem [place] 12/04/2012 RACHELLE Clarke,[facility] Abdominal Abdominal Problem Active 2012-12-04 Memoria pain pain 20:55:13 l Active Vince Problem 12/04/2012 [facility] Depression Depressio Problem Active 2012-12-04 Memoria n Active 20:55:13 l Problem [place] 12/04/2012 [facility] Pain Pain Problem Active 2012-12-04 Memor ia Active 20:55:13 l Problem Vince 12/04/2012 RACHELLE Clarke,[facility] Rectal Rectal Problem Active 2012-12-04 Teofilo osiris bleeding bleeding 20:55:13 l Active Vince Problem 12/04/2012 [facility] Rheumatoid Rheumatoi Problem Active 2012-12-04 Memoria arthritis d 20:55:13 l arthritis Vince Active Problem 12/04/2012 [facility] ADMINISTRT ADMINISTR Diagnosis Active 2011-08-30 Memoria VE ENCOUNT TVE 15:24:00 l NOS ENCOUNT Vince NOS Active [facility] OTHER 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-28 Mem oria 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:00 l CONGENITAL CONGENITAL He rmann DEFORMITIE DEFORMITIE S S Active [facility] Spondyloli Diagnosis 2022-08-06 Memoria sthesis Spondyloli 00:18:04 l (disorder) sthesis Dolores nn (disorder) Diagnosis 08/06/2022 [facility] Abdominal Abdominal Problem Active 2022-08-06 Memoria pain pain 00:18:04 l (finding) (finding) Herm cielo Active Problem 08/06/2022 Medical [facility] her Neuro,[facility], [facility], [facility] [place],[facility] Depressive Problem Active 2022-08-06 M emoria disorder Depressive 00:18:04 l (disorder) disorder Herm cielo (disorder) Active Problem 08/06/2022 Medical [facility] her Neuro,[facility], [facility], [facility] Clarke,[facility] History of History Problem Active 2022-08-06 Memoria - of - 00:18:04 l arthrodesi arthrodesi Mohamud paez s s (context-d (context-d ependent ependent category) category) Active Problem 08/06/2022 Medical [facility] her Neuro,[facility], [facility], RACHELLE Clarke,[facility] Hypertensi Hypertens Problem Active 2022-08-06 Memoria ve sandrine 00:18:04 l disorder, disorder, Herm cielo systemic systemic arterial arterial (disorder) (disorder) Active Problem 08/06/2022 Medical [facility] her Neuro,[facility], [facility], [facility] Clarke,[facility] Pain Pain Problem Active 2022-08-06 Memor ia (finding) (finding) 00:18:04 l Active [place] Problem 08/06/2022 [facility] her Neuro,[facility], [facility], [facility] Vince,[facility] Prolapsed Problem Active 2022-08-06 Me moria lumbar Prolapsed 00:18:04 l interverte lumbar Tomy n bral disc interverte (disorder) bral disc (disorder) Active Problem 08/06/2022 [facility] her Neuro,[facility], [facility], RACHELLE Clarke,[facility] Rectal Rectal Problem Active 2022-08-06 Teofilo osiris hemorrhage hemorrhage 00:18:04 l (disorder) (disorder) Mohamud rmann Active Problem 08/06/2022 Medical Group,[facility] her Neuro,[facility], [facility], RACHELLE Clarke,[facility] Reflux Reflux Problem Active 2022-08-06 Teofilo osiris (finding) (finding) 00:18:04 l Active [place] Problem 08/06/2022 [facility] her Neuro,[facility], [facility], RACHELLE Clarke,[facility] Rheumatoid Problem Active 2022-08-06 [facility] Rheumatoid 00:18:04 l (disorder) arthritis Her felder (disorder) Active Problem 08/06/2022 [facility] her Neuro,[facility], [facility], RACHELLE Clarke,[facility] Scoliosis Scoliosis Problem Active 2022-08-06 Memoria deformity deformity 00:18:04 l of spine of spine Tomy n (disorder) (disorder) Active Problem 08/06/2022 [facility] Spinal Spinal Problem Active 2022-08-06 Teofilo osiris stenosis stenosis 00:18:04 l (disorder) (disorder) Mohamud rmann Active Problem 08/06/2022 [facility] SPONDYLOLI SPONDYLOL Diagnosis Active 2022-08-08 Memoria STHESIS, ISTHESIS, 23:40:00 l SITE SITE [place] UNSPECIFIE UNSPECIFIE D D Active [facility] History of Past Illness Condition Condition Condition Status Onset Resolution Last Treating Co mments Source Name Details Category Date Date Treatment Clinician Date Other Other Problem 2021-08-11 2021-08-11 [facility] 2-12 22:57:39 22:57:39 l pain pain 21:27: [place] 07/22/2021 00 08/11/2021 [facility] Paraplegia Paraplegi Problem 2021-08-11 2021-08-11 Memoria , a, 07-22 22:57:39 22:57:39 l incomplete incomplete 21:26: He rmann 2 08/11/2021 [facility] Heart Heart Problem 2021-08-11 2021-08-11 M emoria failure, failure, 07-22 22:57:39 22:57:39 l unspecifie unspecifie 21:26: He rmann d d 00 07/22/2021 08/11/2021 MH [facility] Unspecifie Unspecifi Problem 2021-08-11 2021-08-11 Memoria d ed 07-22 22:57:39 22:57:39 l abnormalit abnormalit 21:26: He rmann ies of ies of 00 gait and gait and mobility mobility 07/22/2021 08/11/2021 [facility] Neurogenic Neurogeni Problem 2021-08-11 2021-08-11 Memoria bowel, not c bowel, 07-22 22:57:39 22:57:39 l elsewhere not 21:26: Vince classified elsewhere 00 classified 07/22/2021 08/11/2021 [facility] Other Other Problem 2021-08-11 2021-08-11 M emoria neuromuscu neuromuscu 07-22 22:57:39 22:57:39 l lar lar 21:26: Vince dysfunctio dysfunctio 00 n of n of bladder bladder 07/22/2021 08/11/2021 [facility] Sacrococcy Problem 2017-11-25 2017-11-25 Memoria geal Sacrococcy 3- 14:11:46 14:11:46 l disorders, geal 04:39: Tomy n not disorders, 49 elsewhere not classified elsewhere classified 08/24/2017 11/25/2017 RACHELLE Keith Allergies, Adverse Reactions, Alerts Allergy Allergy Status Severity Reaction(s) Onset Inactive Treating Comm ents Source Name Type Date Date Clinician No Known DA Active [facility] No Known DA Active [facility] 5-26 Clear Allergie 00:00: Sahu s 00 [facility] No Known DA Active [facility] 5-31 [facility] 00 [facility] No Known DA Active [facility] All[facility]ie 5-31 [facility] 00:[facility]: [facility]osp[facility] 00 [facility] No Known DA Active [facility] Allergie 6-15 [place] s 00:00: Orthope 00 dic Hospita l NKFA NKFA Active Memoria l [place] No Known No Known Active Memori a Medicati Medicati l on on [place] Allergie Allergie s s NO KNOWN Drug Active Univers ALLERGIE Class ity of S [facility] Social History Social Habit Start Date Stop Date Quantity Comments Source Alcohol intake 2022-08-09 2022-08-09 Ex-drinker [facility] [place] [place] 00:00:00 00:00:00 (finding) Exposure to 2022-07-28 2022-08-[address] [facility] [place] SARS-CoV-2 00:00:00 11:29:00 (event) Tobacco use and 2022-08-07 2022-08-[address] [facility] [place] exposure 00:00:00 00:00:00 non-user Social History 2017-05-20 2017-05-20 [facility] 20:44:19 20:44:19 Sex Assigned At [address] [facility] [place] 00:00:00 00:00:00 Smoking Status Start Date Stop Date Source Tobacco smoking status [facility] Medications Ordered Filled Start Stop Current Ordering Indication Dosage Frequency Signature Comments Components Source Medication Medication Date Date Medication? 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, Height, 52.273, kg, 07/25/22 10:10:00 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, Weight fentaNYL 12 Yes 1 patch, Me moria mcg/hr 2-24 TOP, Q72H, l transdermal 00:36: 0 Tomy n film, 00 Refill(s) extended release saliva 2022-0 Yes 15 mL, Memoria substitutes 2-24 S&SPIT, 5X l oral 00:36: Day, # [place] solution 00 1,050 mL, 1 Refill(s), Pharmacy: [facility], 167.64, cm, 07/21/22 22:01:00 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, Height, 52.273, kg, 07/25/22 10:10:00 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, Weight LORazepam 2 2022-0 Yes 0.5 mg = Me moria mg/mL 2-22 0.25 mL, l injectable 23:52: IVP, Q4H, He rmann solution 00 PRN as needed for anxiety, 0 Refill(s) enoxaparin 2021-0 Yes 40 mg = Teofilo osiris 40 mg/0.4 3-03 0.4 mL, l mL 14:00: SUB-Q, [place] subcutaneou 00 [id number], s solution # 29 ea, 0 Refill(s), Pharmacy: [facility], 167.64, cm, 07/21/21 22:15:00 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, Height, 66.818, kg, 07/21/21 22:15:00 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, Weight enoxaparin 2021-0 Yes 40 mg = Teofilo osiris 40 mg/0.4 3-03 0.4 mL, l mL 14:00: SUB-Q, Vince subcutaneou 00 [id number], s solution # 29 ea, 0 Refill(s), Pharmacy: [facility], 167.64, cm, 07/21/21 22:15:00 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, Height, 66.818, kg, 07/21/21 22:15:00 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, Weight dexamethaso 2021-0 Yes 2 mg = 1 Me moria ne 2 mg 3-03 tab, PO, l oral tablet 05:00: Daily, # 3 Vince 00 tab, 0 Refill(s), Pharmacy: [facility], 167.64, cm, 07/21/21 22:15:00 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, Height, 66.818, kg, 07/21/21 22:15:00 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, Weight dexamethaso Yes 2 mg = 1 Me moria ne 2 mg 3-03 tab, PO, l oral tablet 05:00: Daily, # 3 Vince 00 tab, 0 Refill(s), Pharmacy: [facility], 167.64, cm, 07/21/21 22:15:00 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, Height, 66.818, kg, 07/21/21 22:15:00 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, Weight sennosides, Yes 34.4 mg = M emoria SKILLED NURSING 8.6 MG 3-02 4 tab, PO, l Oral Tablet 15:55: Bedtime, # Vince [Senna-Time 00 120 tab, 2 ] Refill(s), Pharmacy: [facility], 167.64, cm, 07/21/21 22:15:00 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, Height, 66.818, kg, 07/21/21 22:15:00 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, Weight sennosides, Yes 34.4 mg = M emoria SKILLED NURSING 8.6 MG 3-02 4 tab, PO, l Oral Tablet 15:55: Bedtime, # [place] [Senna-Time 00 120 tab, 2 ] Refill(s), Pharmacy: [facility], 167.64, cm, 07/21/21 22:15:00 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, Height, 66.818, kg, 07/21/21 22:15:00 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, Weight Lidocaine Yes 1 patch, Teofilo osiris 0.04 MG/MG 3-02 TOP, l Medicated 15:54: Daily, Tomy n Patch 00 Remove after 12 hours, # 30 patch, 1 Refill(s), Pharmacy: [facility], 167.64, cm, 07/21/21 22:15:00 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, Height, 66.818, kg, 07/21/21 22:15:00 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, Weight Mirtazapine Yes 7.5 mg = Me moria 15 MG Oral 3-02 0.5 tab, l Tablet 15:54: PO, Vince 00 Bedtime, # 15 tab, 1 Refill(s), Pharmacy: [facility], 167.64, cm, 07/21/21 22:15:00 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, Height, 66.818, kg, 07/21/21 22:15:00 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, Weight Multiple 0 Yes 1 tab, PO, Mem oria Vitamins 3-02 Daily, # l with 15:54: 30 tab, 11 [place] Minerals 00 Refill(s), oral tablet Pharmacy: [facility], 167.64, cm, 07/21/21 22:15:00 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, Height, 66.818, kg, 07/21/21 22:15:00 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, Weight Lidocaine 0 Yes 1 patch, Teofilo osiris 0.04 MG/MG 3-02 TOP, l Medicated 15:54: Daily, Tomy n Patch 00 Remove after 12 hours, # 30 patch, 1 Refill(s), Pharmacy: [facility], 167.64, cm, 07/21/21 22:15:00 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, Height, 66.818, kg, 07/21/21 22:15:00 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, Weight Mirtazapine Yes 7.5 mg = Me moria 15 MG Oral 3-02 0.5 tab, l Tablet 15:54: PO, Vince 00 Bedtime, # 15 tab, 1 Refill(s), Pharmacy: [facility], 167.64, cm, 07/21/21 22:15:00 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, Height, 66.818, kg, 07/21/21 22:15:00 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, Weight Multiple 0 Yes 1 tab, PO, Mem oria Vitamins 3-02 Daily, # l with 15:54: 30 tab, 11 Vince Minerals 00 Refill(s), oral tablet Pharmacy: [facility], 167.64, cm, 07/21/21 22:15:00 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, Height, 66.818, kg, 07/21/21 22:15:00 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, Weight DULoxetine 0 Yes 60 mg = 1 Me moria 60 mg oral 3-02 cap, PO, l delayed 15:53: BID, # 60 Dolores nn release 00 cap, 2 capsule Refill(s), Pharmacy: [facility], 167.64, cm, 07/21/21 22:15:00 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, Height, 66.818, kg, 07/21/21 22:15:00 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, Weight DULoxetine 2021-0 Yes 60 mg = 1 Me moria 60 mg oral 3-02 cap, PO, l delayed 15:53: BID, # 60 Dolores nn release 00 cap, 2 capsule Refill(s), Pharmacy: [facility], 167.64, cm, 07/21/21 22:15:00 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, Height, 66.818, kg, 07/21/21 22:15:00 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, Weight [id number] 2021-0 Yes 10 mg = 1 M emoria mg oral 3-01 tab, PO, l tablet, 15:05: Q8H, # 30 Dolores nn extended 00 tab, 0 release Refill(s), Pharmacy: [facility], 167.64, cm, 07/21/21 22:15:00 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, Height, 66.818, kg, 07/21/21 22:15:00 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, Weight pregabalin 2021-0 Yes 100 mg = 1 M emoria 100 mg oral 3-01 cap, PO, l capsule 15:05: TID, # 90 Dolores nn 00 cap, 2 Refill(s), Pharmacy: [facility], 167.64, cm, 07/21/21 22:15:00 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, Height, 66.818, kg, 07/21/21 22:15:00 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, Weight [id number] 2021-0 Yes 10 mg = 1 M emoria mg oral 3-01 tab, PO, l tablet, 15:05: Q8H, # 30 Dolores nn extended 00 tab, 0 release Refill(s), Pharmacy: [facility], 167.64, cm, 07/21/21 22:15:00 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, Height, 66.818, kg, 07/21/21 22:15:00 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, Weight pregabalin 2-0 Yes 100 mg = 1 M emoria 100 mg oral 3-01 cap, PO, l capsule 15:05: TID, # 90 Dolores nn 00 cap, 2 Refill(s), Pharmacy: [facility], 167.64, cm, 07/21/21 22:15:00 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, Height, 66.818, kg, 07/21/21 22:15:00 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, Weight Methocarbam 2021-0 Yes 750 mg = 1 Memoria ol 750 MG 3-01 tab, PO, l Oral Tablet 14:56: TID, # 90 H ermann [Robaxin] 00 tab, 2 Refill(s), Pharmacy: [facility], 167.64, cm, 07/21/21 22:15:00 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, Height, 66.818, kg, 07/21/21 22:15:00 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, Weight Methocarbam 2021-0 Yes 750 mg = 1 Memoria ol 750 MG 3-01 tab, PO, l Oral Tablet 14:56: TID, # 90 H ermann [Robaxin] 00 tab, 2 Refill(s), Pharmacy: [facility], 167.64, cm, 07/21/21 22:15:00 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, Height, 66.818, kg, 07/21/21 22:15:00 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, Weight naloxegol 2021-0 Yes 25 mg = 1 Mem oria 25 MG Oral 3-01 tab, PO, l Tablet 14:55: QAM, # 30 Tomy n [Movantik] 00 tab, 2 Refill(s), Pharmacy: [facility], 167.64, cm, 07/21/21 22:15:00 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, Height, 66.818, kg, 07/21/21 22:15:00 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, Weight naloxegol 2-0 Yes 25 mg = 1 Mem oria 25 MG Oral 3-01 tab, PO, l Tablet 14:55: QAM, # 30 Tomy n [Movantik] 00 tab, 2 Refill(s), Pharmacy: [facility], 167.64, cm, 07/21/21 22:15:00 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, Height, 66.818, kg, 07/21/21 22:15:00 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, Weight pantoprazol 2021-0 Yes 40 mg = 1 M emoria e 40 mg 3-01 tab, PO, l oral 14:54: Daily, # Vince enteric 00 30 tab, 0 coated Refill(s), tablet Pharmacy: [facility], 167.64, cm, 07/21/21 22:15:00 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, Height, 66.818, kg, 07/21/21 22:15:00 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, Weight pantoprazol 0 Yes 40 mg = 1 M emoria e 40 mg 3-01 tab, PO, l oral 14:54: Daily, # [place] enteric 00 30 tab, 0 coated Refill(s), tablet Pharmacy: [facility], 167.64, cm, 07/21/21 22:15:00 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, Height, 66.818, kg, 07/21/21 22:15:00 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, Weight Melatonin 3 2021-0 Yes 3 mg = 1 Me moria MG Extended 3-01 tab, PO, l Release 14:53: Bedtime, Tomy n Tablet 00 PRN for insomnia, X 14 day, # 14 tab, 4 Refill(s), Pharmacy: [facility], 167.64, cm, 07/21/21 22:15:00 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, Height, 66.818, kg, 07/21/21 22:15:00 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, Weight Melatonin 3 2021-0 Yes 3 mg = 1 Me moria MG Extended 3-01 tab, PO, l Release 14:53: Bedtime, Tomy n Tablet 00 PRN for insomnia, X 14 day, # 14 tab, 4 Refill(s), Pharmacy: [facility], 167.64, cm, 07/21/21 22:15:00 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, Height, 66.818, kg, 07/21/21 22:15:00 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, Weight losartan 2021-0 Yes 100 mg = 1 Mem oria 100 mg oral 3-01 tab, PO, l tablet 14:52: Daily, # Vince 00 30 tab, 2 Refill(s), Pharmacy: [facility], 167.64, cm, 07/21/21 22:15:00 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, Height, 66.818, kg, 07/21/21 22:15:00 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, Weight losartan 2021-0 Yes 100 mg = 1 Mem oria 100 mg oral 3-01 tab, PO, l tablet 14:52: Daily, # [place] 00 30 tab, 2 Refill(s), Pharmacy: [facility], 167.64, cm, 07/21/21 22:15:00 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, Height, 66.818, kg, 07/21/21 22:15:00 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, Weight DULoxetine 2021-0 No 60 mg = 2 Me moria 30 mg oral 3-01 cap, PO, l delayed 14:51: BID, # 120 Herm cielo release 00 cap, 2 capsule Refill(s), Pharmacy: [facility], 167.64, cm, 07/21/21 22:15:00 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, Height, 66.818, kg, 07/21/21 22:15:00 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, Weight DULoxetine 2021-0 No 60 mg = 2 Me moria 30 mg oral 3-01 cap, PO, l delayed 14:51: BID, # 120 Herm cielo release 00 cap, 2 capsule Refill(s), Pharmacy: [facility], 167.64, cm, 07/21/21 22:15:00 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, Height, 66.818, kg, 07/21/21 22:15:00 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, Weight cholecalcif 2021-0 Yes 125 Memori a ke 5000 3-01 microgram l intl units 14:46: = 1 tab, Her felder oral 00 PO, Daily, tablet, # 90 tab, disintegrat 0 ing Refill(s), Pharmacy: [facility], 167.64, cm, 07/21/21 22:15:00 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, Height, 66.818, kg, 07/21/21 22:15:00 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, Weight cholecalcif 2021-0 Yes 125 Memori a ke 5000 3-01 microgram l intl units 14:46: = 1 tab, Her felder oral 00 PO, Daily, tablet, # 90 tab, disintegrat 0 ing Refill(s), Pharmacy: [facility], 167.64, cm, 07/21/21 22:15:00 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, Height, 66.818, kg, 07/21/21 22:15:00 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, Weight calcium 2021-0 Yes 500 mg = 1 Teofilo osiris carbonate 3-01 tab, CHEW, l 500 mg (200 14:45: TID, # 30 H ermann mg 00 tab, 0 elemental Refill(s), calcium) Pharmacy: oral tablet [facility], 167.64, cm, 07/21/21 22:15:00 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, Height, 66.818, kg, 07/21/21 22:15:00 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, Weight calcium 2021-0 Yes 500 mg = 1 Teofilo osiris carbonate 3-01 tab, CHEW, l 500 mg (200 14:45: TID, # 30 H ermann mg 00 tab, 0 elemental Refill(s), calcium) Pharmacy: oral tablet [facility], 167.64, cm, 07/21/21 22:15:00 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, Height, 66.818, kg, 07/21/21 22:15:00 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, Weight bisacodyl 2021-0 Yes 10 mg = 1 Mem oria 10 mg 3-01 supp, ND, l rectal 14:44: Daily, PRN Dolores nn suppository 00 Constipati on, # 30 supp, 2 Refill(s), Pharmacy: [facility], 167.64, cm, 07/21/21 22:15:00 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, Height, 66.818, kg, 07/21/21 22:15:00 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, Weight bisacodyl 2021-0 Yes 10 mg = 1 Mem oria 10 mg 3-01 supp, ND, l rectal 14:44: Daily, PRN Dolores nn suppository 00 Constipati on, # 30 supp, 2 Refill(s), Pharmacy: [facility], 167.64, cm, 07/21/21 22:15:00 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, Height, 66.818, kg, 07/21/21 22:15:00 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, Weight Atenolol 50 2021-0 Yes 50 mg = 1 M emoria MG Oral 3-01 tab, PO, l Tablet 14:43: Daily, # Vince 00 30 tab, 2 Refill(s), Pharmacy: [facility], 167.64, cm, 07/21/21 22:15:00 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, Height, 66.818, kg, 07/21/21 22:15:00 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, Weight Atenolol 50 2-0 Yes 50 mg = 1 M emoria MG Oral 3-01 tab, PO, l Tablet 14:43: Daily, # [place] 00 30 tab, 2 Refill(s), Pharmacy: [facility], 167.64, cm, 07/21/21 22:15:00 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, Height, 66.818, kg, 07/21/21 22:15:00 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, Weight Acetaminoph 0 Yes 650 mg, Mem oria en 325 MG 3-01 PO, Q4H, # l Oral 14:42: 90 cap, 2 Vince Capsule 00 Refill(s), [Tylenol] Pharmacy: [facility], 167.64, cm, 07/21/21 22:15:00 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, Height, 66.818, kg, 07/21/21 22:15:00 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, Weight Acetaminoph 2021-0 Yes 650 mg, Mem oria en 325 MG 3-01 PO, Q4H, # l Oral 14:42: 90 cap, 2 Vince Capsule 00 Refill(s), [Tylenol] Pharmacy: [facility], 167.64, cm, 07/21/21 22:15:00 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, Height, 66.818, kg, 07/21/21 22:15:00 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, Weight Dexamethaso 0 No Notes: Teofilo osiris ne 3-01 Give with l 14:00: food. [place] 00 (Same As: Decadron) Dexamethaso No Notes: Teofilo osiris ne 3-01 Give with l 14:00: food. [place] 00 (Same As: Decadron) Dexamethaso 0 No Notes: Teofilo osiris ne 2-25 Give with l 14:00: food. Vince 00 (Same As: Decadron) Dexamethaso No Notes: Teofilo osiris ne 2-25 Give with l 14:00: food. Vince 00 (Same As: Decadron) Lactated No 1,000 mL, Teofilo osiris Ringers IV 08-02 Rate: 100 l 1,000 mL 19:41: ml/hr, Vince 00 Infuse over: 10 hr, Route: IV, Dosing Weight 66.818 kg, Total Volume: 1,000, Start date: 08/02/21 13:41:00 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, Duration: 1 doses or times, Stop date: 08/02/21 23:40:00 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, BSA: 1.78 m2, 0 Lactated No 1,000 mL, Teofilo osiris Ringers IV 08-02 Rate: 100 l 1,000 mL 19:41: ml/hr, [place] Infuse over: 10 hr, Route: IV, Dosing Weight 66.818 kg, Total Volume: 1,000, Start date: 08/02/21 13:41:00 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, Duration: 1 doses or times, Stop date: 08/02/21 23:40:00 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, BSA: 1.78 m2, 0 Omnipaque No Notes: Memori a 300 08-02 (Same l 17:00: as:Omnipaq Vince ue 300). WASTE: F/P - Black; E - Municipal Trash Bin Omnipaque No Notes: Memori a 300 08-02 (Same l 17:00: as:Omnipaq Vince ue 300). WASTE: F/P - Black; E - Municipal Trash Bin Dexamethaso No Notes: Teofilo osiris ne -21 Give with l 14:00: food. [place] 00 (Same As: Decadron) Dexamethaso No Notes: Teofilo osiris ne 2-21 Give with l 14:00: food. Vince 00 (Same As: Decadron) Lidocaine No Notes: Memori a 0.04 MG/MG 2-19 Apply only l Medicated 14:30: once for Herm cielo Patch 00 up to 12 hours in a 24-hour period (12 hours on and 12 hours off). (Same as: Aspercreme Lidocaine Patch) "Remove old patch before applicatio n of new patch" Lidocaine No Notes: Memori a 0.04 MG/MG 2-19 Apply only l Medicated 14:30: once for Herm cielo Patch 00 up to 12 hours in a 24-hour period (12 hours on and 12 hours off). (Same as: Aspercreme Lidocaine Patch) "Remove old patch before applicatio n of new patch" remove No Notes: Memoria patch 2-19 Remove l 03:00: patch 12 [place] 00 hours after applicatio n each day. remove No Notes: Memoria patch 2-19 Remove l 03:00: patch 12 Vince 00 hours after applicatio n each day. Cholecalcif No Notes: Teofilo osiris ke 2-17 Same as: l 14:30: Vitamin D3 Vince 00 Cholecalcif No Notes: Teofilo osiris ke 2-17 Same as: l 14:30: Vitamin D3 [place] 00 Flomax No Notes: Memoria 2-16 (Same As: l 23:00: Flomax) Vince "Do Not Crush" Flomax No Notes: Memoria 2-16 (Same As: l 23:00: Flomax) [place] "Do Not Crush" tamsulosin No Notes: Memor ia 2-16 (Same As: l 18:07: Flomax) [place] "Do Not Crush" tamsulosin No Notes: Memor ia 2-16 (Same As: l 18:07: Flomax) [place] "Do Not Crush" Dexamethaso No Notes: Teofilo osiris ne 2-16 Give with l 18:00: food. [place] 00 (Same As: Decadron) Dexamethaso No Notes: Teofilo osiris ne 2-16 Give with l 18:00: food. Vince 00 (Same As: Decadron) Lovenox No Notes: Memoria 2-16 (Same as: l 15:00: Lovenox) Vince 00 Lovenox No Notes: Memoria 2-16 (Same as: l 15:00: Lovenox) Vince 00 Dexamethaso No Notes: Teofilo osiris ne 2-15 Give with l 03:00: food. [place] 00 (Same As: Decadron) Dexamethaso No Notes: Teofilo osiris ne 2-15 Give with l 03:00: food. Vinec (Same As: Decadron) Hydralazine No Notes: Teofilo osiris Hydrochlori 2-13 (Same as: l de 25 MG 20:21: Apresoline Her felder Oral Tablet 00 ) May interfere w/enteral feedings Take With Food. Hydralazine 2022-0 No Notes: Teofilo osiris Hydrochlori 2-13 (Same as: l de 25 MG 20:21: Apresoline Her felder Oral Tablet 00 ) May interfere w/enteral feedings Take With Food. Bisacodyl 0 No 10 mg, Memori a 2-13 Route: ND, l 03:00: Drug form: Vince 00 SUPP, Bedtime, Dosing Weight 79.545, kg, Start date: 07/22/21 21:00:00 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, Duration: 30 day, Stop date: 08/20/21 21:00:00 CDT Bisacodyl No 10 mg, Memori a 2-13 Route: ND, l 03:00: Drug form: [place] 00 SUPP, Bedtime, Dosing Weight 79.545, kg, Start date: 07/22/21 21:00:00 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, Duration: 30 day, Stop date: 08/20/21 21:00:00 CDT Acetaminoph No Notes: Do M emoria en 325 MG / 2-12 not exceed l Oxycodone 19:19: 4gm/day of He rmann Hydrochlori 00 acetaminop de 5 MG hen. (Same Oral Tablet as: [Percocet Percocet-5 5/325] /325) Acetaminoph No Notes: Do M emoria en 325 MG / 2-12 not exceed l Oxycodone 19:19: 4gm/day of He rmann Hydrochlori 00 acetaminop de 5 MG hen. (Same Oral Tablet as: [Percocet Percocet-5 5/325] /325) sennosides, No 2 tab, Teofilo osiris SKILLED NURSING 2-12 Route: PO, l 18:00: Drug Form: Vince 00 TAB, Dosing Weight 79.545, kg, QNoon, Start date: 07/22/21 12:00:00 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, Duration: 30 day, Stop date: 08/20/21 12:00:00 CDT sennosides, No 2 tab, Teofilo osirsi SKILLED NURSING 2-12 Route: PO, l 18:00: Drug Form: [place] 00 TAB, Dosing Weight 79.545, kg, QNoon, Start date: 07/22/21 12:00:00 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, Duration: 30 day, Stop date: 08/20/21 12:00:00 CDT Docusate No 100 mg, Memori a 2-12 Route: PO, l 14:30: Drug form: [place] 00 CAP, BID, Dosing Weight 79.545, kg, Start date: 07/22/21 8:30:00 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, Duration: 30 day, Stop date: 08/20/21 21:00:00 CDT Atenolol 50 No Notes: Teofilo osiris MG Oral 2-12 (Same l Tablet 14:30: As:Tenormi Dolores nn 00 n) Losartan No Notes: Memoria 2-12 (Same as: l 14:30: Cozaar) [place] 00 multivitami No Notes: Teofilo osiris n with 2-12 (Same l minerals 14:30: as:Thera-M Her felder 00 , Theragran- M) WASTE: F/P - Black; E - Municipal Trash Bin Give with food. Protonix No Notes: Memoria 2-12 Tablet l 14:30: should not be chewed or crushed. (Same as: Protonix) Docusate No Notes: Memoria Sodium 50 2-12 (Same as l MG / 14:30: Senokot-S) Vince senjesikasides, 00 Equiv. to SKILLED NURSING 8.6 MG Kathryn-Colac Oral Tablet e. [SENOKOT-S] Docusate No 100 mg, Memori a 2-12 Route: PO, l 14:30: Drug form: Vince 00 CAP, BID, Dosing Weight 79.545, kg, Start date: 07/22/21 8:30:00 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, Duration: 30 day, Stop date: 08/20/21 21:00:00 CDT Atenolol 50 No Notes: Teofilo osiris MG Oral 2-12 (Same l Tablet 14:30: As:Tenormi Dolores nn 00 n) Losartan No Notes: Memoria 2-12 (Same as: l 14:30: Cozaar) [place] 00 multivitami No Notes: Teofilo osiris n with 2-12 (Same l minerals 14:30: as:Thera-M Her felder 00 , Theragran- M) WASTE: F/P - Black; E - Municipal Trash Bin Give with food. Protonix No Notes: Memoria 2-12 Tablet l 14:30: should not [place] 00 be chewed or crushed. (Same as: Protonix) Docusate No Notes: Memoria Sodium 50 2-12 (Same as l MG / 14:30: Senokot-S) Vince sennosides, 00 Equiv. to SKILLED NURSING 8.6 MG Kathryn-Colac Oral Tablet e. [SENOKOT-S] Insulin No Notes: Memoria Lispro 2-12 (Same as: l 14:00: Humalog) Vince 00 Roll in palms of hands gently; Do not shake vigorously . WASTE: F/P - Black; E - Municipal Trash Bin Stable for 28 days at room temperatur e. Expires in days from ____Date Saline No Notes: Memoria Flush 0.9% 2-12 (Same as: l 14:00: BD Vince 00 Posiflush) Insulin No Notes: Memoria Lispro 2-12 (Same as: l 14:00: Humalog) [place] 00 Roll in palms of hands gently; Do not shake vigorously . WASTE: F/P - Black; E - Municipal Trash Bin Stable for 28 days at room temperatur e. Expires in days from ____Date Saline No Notes: Memoria Flush 0.9% 2-12 (Same as: l 14:00: BD Vince 00 Posiflush) naloxegol No Notes: Memori a 25 MG Oral 2-12 (Same as: l Tablet 12:30: Movantik) Tomy n [Movantik] 00 Swallow tablets whole, do not crush or chew. Avoid consumptio n of grapefruit or grapefruit juice during treatment. Administer naloxegol on an empty stomach at least 1 hour prior to or 2 hours after the first meal of the day. naloxegol No Notes: Memori a 25 MG Oral 2-12 (Same as: l Tablet 12:30: Movantik) Tomy n [Movantik] 00 Swallow tablets whole, do not crush or chew. Avoid consumptio n of grapefruit or grapefruit juice during treatment. Administer naloxegol on an empty stomach at least 1 hour prior to or 2 hours after the first meal of the day. Lidocaine No Notes: Memori a Hydrochlori 2-12 (Same as: l de 10 MG/ML 07:00: Xylocaine) [place] Injectable 00 Solution Lidocaine No Notes: Memori a Hydrochlori 2-12 (Same as: l de 10 MG/ML 07:00: Xylocaine) Vince Injectable 00 Solution Saline No Notes: Memoria Flush 0.9% 2-12 (Same as: l 06:43: BD [place] 00 Posiflush) Saline No Notes: Memoria Flush 0.9% 2-12 (Same as: l 06:43: BD Vince 00 Posiflush) Melatonin No Notes: Memori a 2-12 (Same as: l 04:15: Melatonin) Vince 00 Dibucaine No Notes: Memori a 1% topical 2-12 Non-Formul l ointment 04:15: vito Drug Dolores nn 00 (Same as: Nupercaina l) Saline No Notes: Memoria Flush 0.9% 2-12 (Same as: l 04:15: BD Vince 00 Posiflush) lidocaine No 100 mg, Memor ia 2% 2-12 Route: l 04:15: TOP, Vince 00 Dosing Weight 79.545, kg, ONCE, For intermitte nt catheter, Start date: 07/21/21 22:15:00 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, Stop date: 07/21/21 22:15:00 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 Lidocaine No Notes: Memori a Hydrochlori 2-12 (Same as: l de 0.02 04:15: Uro-Jet) Tomy n MG/MG 00 Topical Gel Sodium No Notes: For Memor ia Chloride 2-12 irrigation l 0.154 04:15: only. [place] MEQ/ML 00 Irrigation Solution Albuterol No Notes: Memori a 0.833 MG/ML 12 (Same as: l / 04:15: Duoneb) Ipratropium 00 [place] 0.167 MG/ML Inhalant Solution Ondansetron No Notes: Teofilo osiris 2-12 (Same as: l 04:15: Zofran) Vince 00 Tums No Notes: Memoria 2-12 (Same As: l 04:15: Tums) Calcium Carbonate 500 mg = 200 mg elemental calcium Dose = mg calcium carbonate ( mg elemental calcium) Nitroglycer No Notes: 1 Me moria in 0.02 212 gram is l MG/MG 04:15: approximat Tomy n Topical 00 nell 1 inch Ointment of nitroglyce rin ointment (20 mg NTG per gram) (Same as:Nitro-B id) Dextrose No 12.5 gm, Memor ia 50% Syringe 12 25 mL, l ([id number]) 04:15: Route: IVP, Drug Form: INJ, Dosing Weight 79.545, kg, PRN, PRN Blood Glucose Results, Start date: 07/21/21 22:15:00 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, Duration: 30 day, Stop date: 08/20/21 23:14:00 CDT, 0 Glucagon No 1 mg, Memoria 07-22 Route: IM, l 04:15: Drug form: PDR/INJ, PRN, Dosing Weight 79.545, kg, PRN Blood Glucose Results, Start date: 07/21/21 22:15:00 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, Duration: 30 day, Stop date: 08/20/21 23:14:00 CDT, 0 Acetaminoph No Notes: Do M emoria en -12 not exceed l 04:15: 4 gm/day. (Same as: Tylenol) Melatonin No Notes: Memori a 2-12 (Same as: l 04:15: Melatonin) Dibucaine No Notes: Memori a 1% topical 2-12 Non-Formul l ointment 04:15: vito Drug Dolores nn 00 (Same as: Nupercaina l) Saline No Notes: Memoria Flush 0.9% 2-12 (Same as: l 04:15: BD Vince Posiflush) lidocaine No 100 mg, Memor ia 2% 2-12 Route: l 04:15: TOP, Vince 00 Dosing Weight 79.545, kg, ONCE, For intermitte nt catheter, Start date: 07/21/21 22:15:00 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, Stop date: 07/21/21 22:15:00 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 Lidocaine No Notes: Memori a Hydrochlori 2-12 (Same as: l de 0.02 04:15: Uro-Jet) Tomy n MG/MG 00 Topical Gel Sodium No Notes: For Memor ia Chloride 2-12 irrigation l 0.154 04:15: only. [place] MEQ/ML 00 Irrigation Solution Albuterol No Notes: Memori a 0.833 MG/ML 2-12 (Same as: l / 04:15: Duoneb) [place] Ipratropium 00 [place] 0.167 MG/ML Inhalant Solution Ondansetron No Notes: Teofilo osiris 2-12 (Same as: l 04:15: Zofran) Vince 00 Tums No Notes: Memoria 2-12 (Same As: l 04:15: Tums) [place] Calcium Carbonate 500 mg = 200 mg elemental calcium Dose = mg calcium carbonate ( mg elemental calcium) Nitroglycer No Notes: 1 Me moria in 0.02 2-12 gram is l MG/MG 04:15: approximat Tomy n Topical 00 nell 1 inch Ointment of nitroglyce rin ointment (20 mg NTG per gram) (Same as:Nitro-B id) Dextrose No 12.5 gm, Memor ia 50% Syringe 2-12 25 mL, l (D50W) 04:15: Route: [place] 00 IVP, Drug Form: INJ, Dosing Weight 79.545, kg, PRN, PRN Blood Glucose Results, Start date: 07/21/21 22:15:00 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, Duration: 30 day, Stop date: 08/20/21 23:14:00 CDT, 0 Glucagon No 1 mg, Memoria 2-12 Route: IM, l 04:15: Drug form: Vince 00 PDR/INJ, PRN, Dosing Weight 79.545, kg, PRN Blood Glucose Results, Start date: 07/21/21 22:15:00 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, Duration: 30 day, Stop date: 08/20/21 23:14:00 CDT, 0 Acetaminoph No Notes: Do M emoria en 2-12 not exceed l 04:15: 4 gm/day. (Same as: Tylenol) Dexamethaso No Notes: Teofilo osiris ne 2-12 Concentrat l 04:05: ion: 4mg/ml Cymbalta No Notes: Memoria 2-12 (Same as: l 04:05: Cymbalta) (Do Not Crush) Methocarbam No Notes: Teofilo osiris ol 2-12 (Same l 04:05: as:Robaxin ) Remeron No Notes: Memoria 2-12 (Same l 04:05: as:Remeron ) oxyCODONE No Notes: Do Mem oria extended 2-12 not crush l release 04:05: or chew. Tomy n 00 (Same as: OxyContin) Lyrica No Notes: Memoria 2-12 (Same as: l 04:05: Lyrica) Bisacodyl No Notes: Memori a 2-12 (Same As: l 04:05: Dulcolax, Bisco-Lax) Ativan No Notes: Memoria 2-12 (Same as: l 04:05: Ativan) Percocet 10 No Percocet Me moria mg-325 mg 2-12 10 mg-325 l oral tablet 04:05: mg oral Her felder 00 tablet, 1 tab, Route: PO, Q4H, PRN Pain Score 7-10, 07/21/21 22:05:00 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, Duration: 30 day, Stop date: 08/20/21 22:04:00 CDT Dexamethaso No Notes: Teofilo osiris ne 2-12 Concentrat l 04:05: ion: [place] 4mg/ml Cymbalta No Notes: Memoria 2-12 (Same as: l 04:05: Cymbalta) Vince (Do Not Crush) Methocarbam No Notes: Teofilo osiris ol 2-12 (Same l 04:05: as:Robaxin ) Remeron No Notes: Memoria 2-12 (Same l 04:05: as:Remeron ) oxyCODONE No Notes: Do Mem oria extended 2-12 not crush l release 04:05: or chew. 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, Duration: 30 day, Stop date: 08/20/21 22:04:00 CDT Docusate No 2 tab, PO, Mem oria Sodium 50 2-11 BID, 0 l MG / 18:19: Refill(s) Vince sennosides, 00 SKILLED NURSING 8.6 MG Oral Tablet [SENOKOT-S] Docusate No 2 tab, PO, Mem oria Sodium 50 2-11 BID, 0 l MG / 18:19: Refill(s) Vince sennosides, 00 SKILLED NURSING 8.6 MG Oral Tablet [SENOKOT-S] Acetaminoph No 1 tab, PO, Memoria en 325 MG / 2-11 Q4H, 0 l Oxycodone 18:18: Refill(s) Her felder Hydrochlori 00 de 10 MG Oral Tablet [Percocet 10/325] pregabalin No 100 mg = 1 M emoria 100 MG Oral 2-11 cap, PO, l Capsule 18:18: TID, 0 [place] [Lyrica] 00 Refill(s) Acetaminoph No 1 tab, PO, Memoria en 325 MG / 2-11 Q4H, 0 l Oxycodone 18:18: Refill(s) Her felder Hydrochlori 00 de 10 MG Oral Tablet [Percocet 10/325] pregabalin No 100 mg = 1 M emoria 100 MG Oral 2-11 cap, PO, l Capsule 18:18: TID, 0 Vince [Lyrica] 00 Refill(s) multivitami No 1 tab, PO, Memoria n with 2-11 Daily, 0 l minerals 18:17: Refill(s) Herm cielo 00 naloxegol No 25 mg = 1 Mem oria 25 MG Oral 2-11 tab, PO, l Tablet 18:17: QAM, 0 Vince [Movantik] 00 Refill(s) multivitami No 1 tab, PO, Memoria n with 2-11 Daily, 0 l minerals 18:17: Refill(s) Herm cielo 00 naloxegol No 25 mg = 1 Mem oria 25 MG Oral 2-11 tab, PO, l Tablet 18:17: QAM, 0 Vince [Movantik] 00 Refill(s) losartan No 100 mg = 1 Mem oria 100 mg oral 2-11 tab, PO, l tablet 18:16: Daily, 0 Vince 00 Refill(s) Remeron No 7.5 mg, Memoria 2-11 PO, l 18:16: Bedtime, 0 Vince 00 Refill(s) losartan No 100 mg = 1 Mem oria 100 mg oral 2-11 tab, PO, l tablet 18:16: Daily, 0 Vince 00 Refill(s) Remeron No 7.5 mg, Memoria 2-11 PO, l 18:16: Bedtime, 0 [place] 00 Refill(s) Atenolol 50 0 No 50 mg = 1 M emoria MG Oral 2-11 tab, PO, l Tablet 18:15: Daily, 0 Vince 00 Refill(s) duloxetine No 60 mg = 1 Me moria 60 MG 2-11 cap, PO, l Enteric 18:15: BID, 0 Vince Coated 00 Refill(s) Capsule [Cymbalta] Atenolol 50 No 50 mg = 1 M emoria MG Oral 2-11 tab, PO, l Tablet 18:15: Daily, 0 [place] 00 Refill(s) duloxetine No 60 mg = 1 Me moria 60 MG 2-11 cap, PO, l Enteric 18:15: BID, 0 [place] Coated 00 Refill(s) Capsule [Cymbalta] [id number] No 10 mg = 1 M emoria mg oral 2-11 tab, PO, l tablet, 18:14: Q8H, 0 Vince extended 00 Refill(s) release [id number] 0 No 10 mg = 1 M emoria mg oral 2-11 tab, PO, l tablet, 18:14: Q8H, 0 [place] extended 00 Refill(s) release Miralax 0 No 17 gm, PO, Teofilo osiris 2-11 BID, 0 l 18:13: Refill(s) Vince 00 Miralax 0 No 17 gm, PO, Teofilo osiris 2-11 BID, 0 l 18:13: Refill(s) [place] 00 Lorazepam 0 No 0.5 mg = 1 Me moria 0.5 MG Oral 2-11 tab, PO, l Tablet 18:12: Q8H, PRN Vince [Ativan] 00 Anxiety, 0 Refill(s) Lorazepam 0 No 0.5 mg = 1 Me moria 0.5 MG Oral 2-11 tab, PO, l Tablet 18:12: Q8H, PRN [place] [Ativan] 00 Anxiety, 0 Refill(s) Dexamethaso 0 No 6 mg, IV, M emoria ne 2-11 Q4H, 0 l 18:11: Refill(s) Vince Dexamethaso 2021-0 No 6 mg, IV, M emoria ne 2-11 Q4H, 0 l 18:11: Refill(s) Vince bisacodyl 0 No 10 mg = 1 Mem oria 10 mg 2-11 supp, ND, l rectal 18:10: Daily, PRN Dolores nn suppository 00 Constipati on bisacodyl 0 No 10 mg = 1 Mem oria 10 mg 2-11 supp, ND, l rectal 18:10: Daily, PRN Dolores nn suppository 00 Constipati on pantoprazol 0 No 40 mg = 1 M emoria e 40 MG 2-11 tab, PO, l Enteric 18:09: Daily, 0 Tomy n Coated 00 Refill(s) Tablet [Protonix] pantoprazol 0 No 40 mg = 1 M emoria e 40 MG 2-11 tab, PO, l Enteric 18:09: Daily, 0 Tomy n Coated 00 Refill(s) Tablet [Protonix] Insulin 0 No Sliding Memoria Lispro 2-11 Scale l 18:08: Insulin, Vince 00 SUB-Q, TID-Meals, 0 Refill(s) Insulin 0 No Sliding Memoria Lispro 2-11 Scale l 18:08: Insulin, [place] 00 SUB-Q, TID-Meals, 0 Refill(s) Methocarbam 2021-0 No 750 mg = 1 Memoria ol 750 MG 2-11 tab, PO, l Oral Tablet 18:07: TID, 0 Herm cielo [Robaxin] 00 Refill(s) Tylenol 0 No 650 mg, Memoria 2-11 PO, Q6H, 0 l 18:07: Refill(s) [place] Methocarbam 2021-0 No 750 mg = 1 Memoria ol 750 MG 2-11 tab, PO, l Oral Tablet 18:07: TID, 0 Herm cielo [Robaxin] 00 Refill(s) Tylenol No 650 mg, Memoria 2-11 PO, Q6H, 0 l 18:07: Refill(s) Vince 00 leflunomide leflunomide No leflunomid Khushbu 10 mg [...] cap, 2 Refill(s), called to pharmacy pregabalin Yes 100 mg = 2 M emoria 50 MG Oral 1-31 cap, PO, l Capsule 14:03: TID, # 180 Herm cielo [Lyrica] 00 cap, 2 Refill(s), called to pharmacy pregabalin Yes 100 mg = 2 M emoria 50 MG Oral 1-31 cap, PO, l Capsule 14:03: TID, # 180 Herm cielo [Lyrica] 00 cap, 2 Refill(s), called to pharmacy pregabalin No 100 mg = 2 M emoria 50 MG Oral 1-30 cap, PO, l Capsule 20:59: TID, # 180 Herm cielo [Lyrica] 00 cap, 1 Refill(s), called to pharmacy pregabalin No 100 mg = 2 M emoria 50 MG Oral 1-30 cap, PO, l Capsule 20:59: TID, # 180 Herm cielo [Lyrica] 00 cap, 1 Refill(s), called to pharmacy pregabalin No 100 [...] [Tylenol called to with pharmacy Codeine #3] Acetamino 2016-06 Yes 1 - 2 tab, Memoria en 300 MG / 2-28 PO, Q6H, l Codeine 20:39: PRN Pain, Dolores nn Phosphate 00 X 4 day, # 30 MG Oral 90 tab, 0 Tablet Refill(s), [Tylenol called to with pharmacy Codeine #3] Acetamino 2016-06 Yes 1 - 2 tab, Memoria en 300 MG / 2-28 PO, Q6H, l Codeine 20:39: PRN Pain, Dolores nn Phosphate 00 X 4 day, # 30 MG Oral 90 tab, 0 Tablet Refill(s), [Tylenol called to with pharmacy Codeine #3] pregabalin 2016-06 Yes 2 caps, Teofilo osiris 50 MG Oral 2-20 PO, BID, # l Capsule 20:01: 120 [place] [Lyrica] 53 caplet, 2 Refill(s), called to pharmacy pregabalin 2016-06 Yes 2 caps, Teofilo osiris 50 MG Oral 2-20 PO, BID, # l Capsule 20:01: 120 [place] [Lyrica] 53 caplet, 2 Refill(s), called to pharmacy pregabalin 2016-06 Yes 2 caps, Teofilo osiris 50 MG Oral 2-20 PO, BID, # l Capsule 20:01: 120 [place] [Lyrica] 53 caplet, 2 Refill(s), called to pharmacy duloxetine 2016-06 Yes 30 mg = 1 Me moria 30 MG 2-20 cap, PO, l Enteric 20:01: Daily, # Tomy n Coated 00 30 cap, 1 Capsule Refill(s), [Cymbalta] Pharmacy: [facility] duloxetine 2016-06 Yes 30 mg = 1 Me moria 30 MG 2-20 cap, PO, l Enteric 20:01: Daily, # Tomy n Coated 00 30 cap, 1 Capsule Refill(s), [Cymbalta] Pharmacy: [facility] duloxetine 2016-06 Yes 30 mg = 1 Me moria 30 MG 2-20 cap, PO, l Enteric 20:01: Daily, # Tomy n Coated 00 30 cap, 1 Capsule Refill(s), [Cymbalta] Pharmacy: [facility] Acetaminoph 2016-06 Yes 1 tab, PO, Memoria en 325 MG / 1-20 Q6H, PRN l Hydrocodone 16:26: for pain, H ermann Bitartrate 00 # 24 tab, 10 MG Oral 0 Tablet Refill(s) [[place] 10/325] Acetaminoph 2016-06 Yes 1 tab, PO, Memoria en 325 MG / 1-20 Q6H, PRN l Hydrocodone 16:26: for pain, H ermann Bitartrate 00 # 24 tab, 10 MG Oral 0 Tablet Refill(s) [[place] 10/325] Acetaminoph 2016-06 Yes 1 tab, PO, Memoria en 325 MG / 1-20 Q6H, PRN l Hydrocodone 16:26: for pain, H ermann Bitartrate 00 # 24 tab, 10 MG Oral 0 Tablet Refill(s) [[place] 10/325] Ondansetron No Notes: Teofilo osiris 3-07 (Same as: l 18:29: Shaniafran) Vince 00 MEDICATION WASTE Product Size: 4 mg Product Wasted: ___ mg Oxycodone 2016- No Notes: Memori a 3-07 (Same as: l 18:29: Roxicodone Vince 00 ) Labetalol No 10 mg, 2 Teofilo osiris 3-07 mL, Route: l 18:29: IVP, Drug [place] 00 form: INJ, Q5Min, Dosing Weight 77.273, kg, PRN Elevated BP, 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, 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 doses or times, Stop date: Limited # of times Naloxone No Notes: Memoria 3-07 Same as l 18:29: Narcan Flumazenil No Notes: Memor ia 3-07 (Same as: l 18:29: Romazicon) [place] 00 Hydromorpho No Notes: Teofilo osiris ne 3-07 Same as: l 18:29: Dilaudid [place] 00 Ondansetron No Notes: Teofilo osiris 3-07 (Same as: l 18:29: Zofran) Vince 00 MEDICATION WASTE Product Size: 4 mg Product Wasted: ___ mg Oxycodone 2016- No Notes: Memori a 3-07 (Same as: l 18:29: Roxicodone Vince 00 ) Labetalol No 10 mg, 2 Teofilo osiris 3-07 mL, Route: l 18:29: IVP, Drug form: INJ, Q5Min, Dosing Weight 77.273, kg, PRN Elevated BP, 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, 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: 5 doses or times, Stop date: Limited # of times Naloxone No Notes: Memoria 3-07 Same as l 18:29: Narcan [place] 00 Flumazenil No Notes: Memor ia 3-07 (Same as: l 18:29: Romazicon) Vince 00 Hydromorpho No Notes: Teofilo osiris ne 3-07 Same as: l 18:29: Dilaudid Vince 00 Ondansetron No Notes: Teofilo osiris 3-07 (Same as: l 18:29: Zofran) MEDICATION WASTE Product Size: 4 mg Product Wasted: ___ mg Oxycodone No Notes: Memori a 08-14 (Same as: l 18:29: Roxicodone ) Labetalol No 10 mg, 2 Teofilo osiris - mL, Route: l 18:29: IVP, Drug form: INJ, Q5Min, Dosing Weight 77.273, kg, PRN Elevated BP, 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, 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 doses or times, Stop date: Limited # of times Naloxone No Notes: Memoria 08-14 Same as 18:29: Narcan Flumazenil No Notes: Memor ia 08-14 (Same as: l 18:29: Romazicon) Hydromorpho No Notes: Teofilo osiris ne 08-14 Same as: 18:29: Dilaudid Acetaminoph Yes 1 tab, PO, Memoria en 325 MG / 3-07 Q6H, 0 l Hydrocodone 13:50: Refill(s) H ermann Bitartrate 00 10 MG Oral Tablet [[place] 10/325] Acetaminoph Yes 1 tab, PO, Memoria en 325 MG / 3-07 Q6H, 0 l Hydrocodone 13:50: Refill(s) H ermann Bitartrate 00 10 MG Oral Tablet [[place] 10/325] Acetaminoph Yes 1 tab, PO, Memoria en 325 MG / 3-07 Q6H, 0 l Hydrocodone 13:50: Refill(s) H ermann Bitartrate 00 10 MG Oral Tablet [[place] 10/325] Methocarbam Yes 500 mg = 1 Memoria ol 500 MG 08-14 tab, PO, l Oral Tablet 12:19: QID, PRN He rmann [Robaxin] 00 muscle pain, X 14 day, # 56 tab, 0 Refill(s) Famotidine Yes 20 mg = 1 Me moria 20 MG Oral 08-14 tab, PO, l Tablet 12:19: BID, # 60 Tomy n [Pepcid] 00 tab, 0 Refill(s) { Yes See Memoria (Methylpred 3-07 Instructio l nisolone 4 12:19: ns, PO, Herm cielo MG Oral 00 Take by Tablet mouth as [Medrol]) } directed Pack on label., [Medrol # 1 Pack, Dosepak] 0 Refill(s) magnesium Yes 8.725 gm = Me moria citrate 3-07 150 ml, l 58.2 MG/ML 12:19: PO, ONCE, He rmann Oral 00 # 300 ml, Solution 0 Refill(s) Docusate Yes 100 mg = 1 Mem oria Sodium 100 3-07 cap, PO, l MG Oral 12:19: BID, PRN Tomy n Capsule 00 Constipati [Colace] on, # 60 cap, 0 Refill(s) Methocarbam Yes 500 mg = 1 Memoria [...] Yes 8.725 gm = Me moria citrate 3-07 150 ml, l 58.2 MG/ML 12:19: PO, ONCE, He rmann Oral 00 # 300 ml, Solution 0 Refill(s) Docusate Yes 100 mg = 1 Mem oria Sodium 100 3-07 cap, PO, l MG Oral 12:19: BID, PRN Tomy n Capsule 00 Constipati [Colace] on, # 60 cap, 0 Refill(s) Methocarbam Yes 500 mg = 1 Memoria [...] Yes 8.725 gm = Me moria citrate - 150 ml, l 58.2 MG/ML 12:19: PO, [...] coated 00 30 tab, 3 tablet Refill(s) omeprazole Yes 20 mg = 1 Me moria 20 mg oral 3-03 tab, PO, l enteric 17:32: Daily, # Tomy n coated 00 30 tab, 3 tablet Refill(s) omeprazole Yes 20 mg = 1 Me moria 20 mg oral 3-03 tab, PO, l enteric 17:32: Daily, # Tomy n coated 00 30 tab, 3 tablet Refill(s) Streptococc No Notes: Teofilo osiris us 02-14 Lightly l pneumoniae 14:00: roll vial He rmann serotype 1 00 (DO NOT capsular SHAKE) antigen before diphtheria administra [id number] tion. protein (Same as: conjugate Prevnar vaccine / 13) Streptococc us pneumoniae serotype 14 capsular antigen diphtheria [id number] protein conjugate vaccine / Streptococc us pneumoniae serotype 18C capsular antigen d Streptococc No Notes: Teofilo osiris us - Lightly l pneumoniae 14:00: roll vial He rmann serotype 1 00 (DO NOT capsular SHAKE) antigen before diphtheria administra [id number] tion. protein (Same as: conjugate Prevnar vaccine / 13) Streptococc us pneumoniae serotype 14 capsular antigen diphtheria [id number] protein conjugate vaccine / Streptococc us pneumoniae serotype 18C capsular antigen d Streptococc No Notes: Teofilo osiris us - Lightly l pneumoniae 14:00: roll vial He rmann serotype 1 00 (DO NOT capsular SHAKE) antigen before diphtheria administra [id number] tion. protein (Same as: conjugate Prevnar vaccine / 13) Streptococc us pneumoniae serotype 14 capsular antigen diphtheria [id number] protein conjugate vaccine / Streptococc us pneumoniae [...] mg = 1 Mem oria Sodium 100 07 cap, PO, l MG Oral 12:06: BID, PRN Tomy n Capsule 00 Constipati [Colace] on, # 20 cap, 0 Refill(s) Methocarbam Yes 1,000 mg = Memoria ol 500 MG 07 2 tab, PO, l Oral Tablet 12:06: QID, X 10 H ermann [Robaxin] 00 day, # 80 tab, 0 Refill(s) Famotidine Yes 20 mg = 1 Me moria 20 MG Oral 9-07 tab, PO, l Tablet 12:06: BID, # 60 Tomy n [Pepcid] 00 tab, 0 Refill(s) { Yes See Memoria (Methylpred 9-07 Instructio l nisolone 4 12:06: ns, PO, Herm cielo MG Oral 00 Take by Tablet mouth as [Medrol]) } directed Pack on label., [Medrol X 6 day, # Dosepak] 1 Pack, 0 Refill(s) magnesium Yes 8.725 gm = Me moria citrate 9-07 150 ml, l 8.85% oral 12:06: PO, ONCE, He rmann liquid 00 # 300 ml, 0 Refill(s) Docusate Yes 100 mg = 1 Mem oria Sodium 100 9-07 cap, PO, l MG Oral 12:06: BID, PRN Tomy n Capsule 00 Constipati [Colace] on, # 20 cap, 0 Refill(s) Methocarbam Yes 1,000 mg = Memoria ol 500 MG 02-14 2 tab, PO, l Oral Tablet 12:06: QID, X 10 H ermann [Robaxin] 00 day, # 80 tab, 0 Refill(s) Famotidine Yes 20 mg = 1 Me moria 20 MG Oral -07 tab, PO, l Tablet 12:06: BID, # 60 Tomy n [Pepcid] 00 tab, 0 Refill(s) { Yes See Memoria (Methylpred 07 Instructio l nisolone 4 12:06: ns, PO, Herm cielo MG Oral 00 Take by Tablet mouth as [Medrol]) } directed Pack on label., [Medrol X 6 day, # Dosepak] 1 Pack, 0 Refill(s) magnesium Yes 8.725 gm = Me moria citrate 9-07 150 ml, l 8.85% oral 12:06: PO, ONCE, He rmann liquid 00 # 300 ml, 0 Refill(s) Docusate Yes 100 mg = 1 Mem oria Sodium 100 9-07 cap, PO, l MG Oral 12:06: BID, PRN Tomy n Capsule 00 Constipati [Colace] on, # 20 cap, 0 Refill(s) Cefazolin No Notes: Memori a 02-13 (Same As: l 20:00: Ancef, [place] 00 Kefzol) MEDICATION WASTE Product Size: 1000 mg Product Wasted: ___ mg Cefazolin No Notes: Memori a 02-13 (Same As: l 20:00: Ancef, [place] 00 Kefzol) MEDICATION WASTE Product Size: 1000 mg Product Wasted: ___ mg Cefazolin No Notes: Memori a 02-13 (Same As: l 20:00: Ancef, Vince 00 Kefzol) MEDICATION WASTE Product Size: 1000 mg Product Wasted: ___ mg Dexamethaso No Notes: Teofilo osiris ne 02-13 Concentrat l 17:00: ion: [place] 00 4mg/ml Dexamethaso No Notes: Teofilo osiris ne 02-13 Concentrat l 17:00: ion: [place] 00 4mg/ml Dexamethaso No Notes: Teofilo osiris ne 02-13 Concentrat l 17:00: ion: [place] 00 4mg/ml pantoprazol No Notes: Teofilo osiris e 02-13 Tablet l 15:05: should not Vince 00 be chewed or crushed. (Same as: Protonix) Losartan No Notes: Memoria 02-13 (Same as: l 15:05: Cozaar) Vince 00 pantoprazol No Notes: Teofilo osiris e 02-13 Tablet l 15:05: should not Vince 00 be chewed or crushed. (Same as: Protonix) Losartan No Notes: Memoria 02-13 (Same as: l 15:05: Cozaar) [place] 00 pantoprazol No Notes: Teofilo osiris e 02-13 Tablet l 15:05: should not Vince 00 be chewed or crushed. (Same as: Protonix) Losartan No Notes: Memoria 02-13 (Same as: l 15:05: Cozaar) [place] 00 Labetalol 2015-0 No 10 mg, Memori a 02-13 Route: l 14:15: IVP, Vince 00 Q5Min, Dosing Weight 79.545, kg, PRN Elevated BP, Start date: 02/14/16 9:15:00 CDT, Duration: 5 doses or times, Stop date: Limited # of times Labetalol 2015-0 No 10 mg, Memori a 02-13 Route: l 14:15: IVP, [place] 00 Q5Min, Dosing Weight 79.545, kg, PRN Elevated BP, Start date: 02/14/16 9:15:00 CDT, Duration: 5 doses or times, Stop date: Limited # of times Labetalol 2015-0 No 10 mg, Memori a 02-13 Route: l 14:15: IVP, [place] 00 Q5Min, Dosing Weight 79.545, kg, PRN [...] Memoria 02-13 (Same as: l 14:00: Cymbalta) [place] (Do Not Crush) Robaxin No Notes: Memoria 02-13 (Same l 14:00: as:Robaxin [place] ) Famotidine No Notes: Memor ia 02-13 (Same as: l 14:00: Pepcid) Can be dilute in 5-10cc NS IVP: Slow IV push over at least 2 minutes. Docusate No Notes: Memoria Sodium 100 02-13 (Same as: l MG Oral 14:00: Colace) [place] Capsule 00 (Do Not Crush) leflunomide No 20 mg, Teofilo osiris 02-13 Route: PO, l 14:00: Drug form: [place] 00 TAB, Daily, Dosing Weight 79.545, kg, Start date: 02/14/16 9:00:00 CDT, Duration: 30 day, Stop date: 03/14/16 9:00:00 CDT Cymbalta No Notes: Memoria 02-13 (Same as: l 14:00: Cymbalta) [place] 00 (Do Not Crush) Robaxin No Notes: Memoria 02-13 (Same l 14:00: as:Robaxin [place] 00 ) Famotidine No Notes: Memor ia 02-13 (Same as: l 14:00: Pepcid) Vince 00 Can be dilute in 5-10cc NS IVP: Slow IV push over at least 2 minutes. Docusate No Notes: Memoria Sodium 100 02-13 (Same as: l MG Oral 14:00: Colace) Vince Capsule 00 (Do Not Crush) leflunomide No 20 mg, Teofilo osiris 02-13 Route: PO, l 14:00: Drug form: Vince 00 TAB, Daily, Dosing Weight 79.545, kg, Start date: 02/14/16 9:00:00 CDT, Duration: 30 day, Stop date: 03/14/16 9:00:00 CDT Cymbalta No Notes: Memoria 02-13 (Same as: l 14:00: Cymbalta) Vince 00 (Do Not Crush) Robaxin No Notes: Memoria 02-13 (Same l 14:00: as:Robaxin [place] 00 ) Famotidine No Notes: Memor ia 02-13 (Same as: l 14:00: Pepcid) Vince 00 Can be dilute in 5-10cc NS IVP: Slow IV push over at least 2 minutes. Docusate No Notes: Memoria Sodium 100 02-13 (Same as: l MG Oral 14:00: Colace) Vince Capsule 00 (Do Not Crush) Naloxone No Notes: Memoria 02-13 Same as l 13:33: Narcan [place] 00 Flumazenil No Notes: Memor ia 9-06 (Same as: l 13:33: Romazicon) Vince 00 Ondansetron No Notes: Teofilo osiris 9-06 (Same as: l 13:33: Zofran) Vince 00 MEDICATION WASTE Product Size: 4 mg Product Wasted: ___ mg Hydromorpho No Notes: Teofilo osiris ne - Same as: l 13:33: Dilaudid Vince 00 Hydralazine No Notes: Teofilo osiris 9-06 (Same as: l 13:33: Apresoline [place] 00 ) Push over 5 minutes Naloxone No Notes: Memoria 9-06 Same as l 13:33: Narcan Vince 00 Flumazenil No Notes: Memor ia - (Same as: l 13:33: Romazicon) Vince Ondansetron No Notes: Teofilo osiris 9-06 (Same as: l 13:33: Zofran) Vince 00 MEDICATION WASTE Product Size: 4 mg Product Wasted: ___ mg Hydromorpho No Notes: Teofilo osiris ne - Same as: l 13:33: Dilaudid Vince 00 Hydralazine No Notes: Teofilo osiris 9-06 (Same as: l 13:33: Apresoline [place] 00 ) Push over 5 minutes Naloxone 0 No Notes: Memoria 9-06 Same as l 13:33: Narcan Vince 00 Flumazenil No Notes: Memor ia 9-06 (Same as: l 13:33: Romazicon) [place] 00 Ondansetron 0 No Notes: Teofilo osiris 9-06 (Same as: l 13:33: Zofran) [place] 00 MEDICATION WASTE Product Size: 4 mg Product Wasted: ___ mg Hydromorpho 0 No Notes: Teofilo osiris ne -06 Same as: l 13:33: Dilaudid Vince 00 Hydralazine No Notes: Teofilo osiris 9-06 (Same as: l 13:33: Apresoline [place] 00 ) Push over 5 minutes Regular 2015-0 No 60 units) Teofilo osiris Insulin, 9-06 WASTE: F/P l Human 100 13:13: - Black; E He rmann UNT/ML 00 - Injectable Municipal Solution Trash Bin Stable for 28 days at room temperatur e Expires in days from ____Date Dextrose No 6.25 gm, Memor ia 50% Syringe 02-13 12.5 mL, l 13:13: Route: [place] 00 IVP, Drug Form: INJ, Dosing Weight 79.545, kg, PRN, PRN Abnormal Lab Result, Start date: 02/14/16 8:13:00 CDT, Duration: 30 day, Stop date: 03/15/16 8:12:00 CDT Acetaminoph No Notes: Do M emoria en 325 MG / 02-13 not exceed l Hydrocodone 13:13: 4gm/day of [place] Bitartrate 00 acetaminop 10 MG Oral hen. (Same Tablet as: [place] [[place] 325/10) 325] phenol 5 No Notes: Memoria MG/ML 02-13 Chlorasept l Mucosal 13:13: ic [place] Tomy n [place] 00 (Same as: Chlorasept ic, Sore Throat [place]) WASTE: F/P - Black; E - Municipal Trash Bin Ondansetron No Notes: Teofilo osiris 02-13 (Same as: l 13:13: Zofran) Vince 00 MEDICATION WASTE Product Size: 4 mg Product Wasted: ___ mg Morphine No Notes: Memoria 02-13 (Same l 13:13: as:MORPhin [place] 00 e Sulfate) Sodium No 1,000 mL, Memori a Chloride 02-13 Rate: 50 l 0.154 13:13: ml/hr, Vince MEQ/ML 00 Infuse Injectable over: 20 Solution hr, Route: IV, Dosing Weight 79.545 kg, Total Volume: 1,000, Start date: 02/14/16 8:13:00 CDT, Duration: 30 day, Stop date: 03/15/16 8:12:00 CDT Regular No 60 units) Teofilo osiris Insulin, 02-13 WASTE: F/P l Human 100 13:13: - Black; E He rmann UNT/ML 00 - Injectable Municipal Solution Trash Bin Stable for 28 days at room temperatur e Expires in days from ____Date Dextrose No 6.25 gm, Memor ia 50% Syringe 02-13 12.5 mL, l 13:13: Route: [place] 00 IVP, Drug Form: INJ, Dosing Weight 79.545, kg, PRN, PRN Abnormal Lab Result, Start date: 02/14/16 8:13:00 CDT, Duration: 30 day, Stop date: 03/15/16 8:12:00 CDT Acetaminoph No Notes: Do M emoria en 325 MG / 02-13 not exceed l Hydrocodone 13:13: 4gm/day of [place] Bitartrate 00 acetaminop 10 MG Oral hen. (Same Tablet as: [place] [[place] 325/10) 325] phenol 5 No Notes: Memoria MG/ML 02-13 Chlorasept l Mucosal 13:13: ic [place] Tomy n [place] 00 (Same as: Chlorasept ic, Sore Throat [place]) WASTE: F/P - Black; E - Municipal Trash Bin Ondansetron No Notes: Teofilo osiris 02-13 (Same as: l 13:13: Zofran) Vince 00 MEDICATION WASTE Product Size: 4 mg Product Wasted: ___ mg Morphine No Notes: Memoria 02-13 (Same l 13:13: as:MORPhin [place] 00 e Sulfate) Sodium No 1,000 mL, Memori a Chloride 02-13 Rate: 50 l 0.154 13:13: ml/hr, [place] MEQ/ML 00 Infuse Injectable over: 20 Solution hr, Route: IV, Dosing Weight 79.545 kg, Total Volume: 1,000, Start date: 02/14/16 8:13:00 CDT, Duration: 30 day, Stop date: 03/15/16 8:12:00 CDT Regular No 60 units) Teofilo osiris Insulin, [...] not exceed l Hydrocodone 13:13: 4gm/day of [place] Bitartrate 00 acetaminop 10 MG Oral hen. (Same Tablet as: [place] [[place] 325/10) 10/325] phenol 5 No Notes: Memoria MG/ML 02-13 Chlorasept l Mucosal 13:13: ic [place] Tomy n [place] 00 (Same as: Chlorasept ic, Sore Throat [place]) WASTE: F/P - Black; E - Municipal Trash Bin Ondansetron No Notes: Teofilo osiris 02-13 (Same as: l 13:13: Zofran) Vince 00 MEDICATION WASTE Product Size: 4 mg Product Wasted: ___ mg Morphine No Notes: Memoria 02-13 (Same l 13:13: as:MORPhin [place] 00 e Sulfate) Sodium No 1,000 mL, [...] Size: 1000 mg Product Wasted: ___ mg Ancef + No Notes: Memoria sodium 02-13 (Same As: l chloride 12:27: Ancef, [place] 0.9% INJ Kefzol) 100 mL MEDICATION WASTE Product Size: 1000 mg Product Wasted: ___ mg Ancef + No Notes: Memoria sodium 02-13 (Same As: l chloride 12:27: Ancef, [place] 0.9% INJ Kefzol) 100 mL MEDICATION WASTE Product Size: 1000 mg Product Wasted: ___ mg ceFAZolin No Notes: Memori a 02-12 Same as: l 04:00: Ancef Vince ceFAZolin No Notes: Memori a 02-12 Same as: l 04:00: Ancef Vince ceFAZolin No Notes: Memori a 02-12 Same as: l 04:00: Ancef [place] 00 Celebrex 50 2012-0 Yes 50 mg, 1 Me moria mg oral 6-25 cap, PO, l capsule 16:16: BID, 60 [place] 49 cap, Substituti on Allowed, CAP Celebrex 50 2012-0 Yes 50 mg, 1 Me moria mg oral 6-25 cap, PO, l capsule 16:16: BID, 60 Vince 49 cap, Substituti on Allowed, CAP Celebrex 50 2012-0 Yes 50 mg, 1 Me moria mg oral 6-25 cap, PO, l capsule 16:16: BID, 60 [place] 49 cap, Substituti on Allowed, CAP Cymbalta 60 2012-0 Yes 60 mg, 1 Me moria mg oral 6-25 cap, PO, l delayed 16:16: Daily, Vince release 21 Substituti capsule on Allowed Cymbalta 60 2012-0 Yes 60 mg, 1 Me moria mg oral 6-25 cap, PO, l delayed 16:16: Daily, [place] release 21 Substituti capsule on Allowed Cymbalta 60 2012-0 Yes 60 mg, 1 Me moria mg oral 6-25 cap, PO, l delayed 16:16: Daily, Vince release 21 Substituti capsule on Allowed methotrexat 2012-0 Yes 3.3 MG/M2, Memoria e 25 mg/mL 6-25 IM, Q7D, l injectable 16:15: Substituti H ermann solution 08 on Allowed methotrexat 2012- Yes 3.3 MG/M2, Memoria e 25 mg/mL 6-25 IM, Q7D, l injectable 16:15: Substituti H ermann solution 08 on Allowed methotrexat 2012- Yes 3.3 MG/M2, Memoria e 25 mg/mL 6-25 IM, Q7D, l injectable 16:15: Substituti H ermann solution 08 on Allowed Humira 20 Yes 20 mg, 0.4 Me moria mg/0.4 mL 6-25 ml, SUB-Q, l subcutaneou 16:14: q2wk, 1 Her felder s solution 17 kit, Substituti on Allowed, KIT Humira 20 Yes 20 mg, 0.4 Me moria mg/0.4 mL 6-25 ml, SUB-Q, l subcutaneou 16:14: q2wk, 1 Her felder s solution 17 kit, Substituti on Allowed, KIT Humira 20 Yes 20 mg, 0.4 Me moria mg/0.4 mL 6-25 ml, SUB-Q, l subcutaneou 16:14: q2wk, 1 Her felder s solution 17 kit, Substituti on Allowed, KIT Ambien No Ketan 10 mg, 1 Mem oria 3-24 [place] tab, l 02:00: Route: PO, Drug form: TAB, Bedtime, Start date: 08/31/11 21:00:00, Duration: 30 day, Stop date: 09/29/11 21:00:00 Ambien 0 No Ketan 10 mg, 1 Mem oria 3-24 [place] tab, l 02:00: Route: PO, [place] 00 Drug form: TAB, Bedtime, Start date: 08/31/11 21:00:00, Duration: 30 day, Stop date: 09/29/11 21:00:00 Ambien 0 No Ketan 10 mg, 1 Mem oria 3-24 [place] tab, l 02:00: Route: PO, Vince 00 Drug form: TAB, Bedtime, Start date: 08/31/11 21:00:00, Duration: 30 day, Stop date: 09/29/11 21:00:00 Prozac 2011-0 No Ketan 20 mg, 1 Mem oria 3-23 [place] cap, l 17:38: Route: PO, Vince Drug form: CAP, QAM, Start date: 08/31/11 12:38:00, Duration: 30 day, Stop date: 09/30/11 9:00:00 Prozac 2011-0 No Ketan 20 mg, 1 Mem oria 3-23 [place] cap, l 17:38: Route: PO, Vince 00 Drug form: CAP, QAM, Start date: 08/31/11 12:38:00, Duration: 30 day, Stop date: 09/30/11 9:00:00 Prozac 2011-0 No Ketan 20 mg, 1 Mem oria 3-23 [place] cap, l 17:38: Route: PO, Vince 00 Drug form: CAP, QAM, Start date: 08/31/11 12:38:00, Duration: 30 day, Stop date: 09/30/11 9:00:00 ketorolac 2011-0 No Ketan 30 mg, 1 [facility] 30 mg/mL 3-23 [place] mL, Route: l injectable 17:00: IVP, Drug He rmann solution 00 form: INJ, Q6H, Start date: 08/31/11 12:00:00, Duration: 4 day, Stop date: 09/04/11 6:00:00 ketorolac 2012-0 No Ketan 30 mg, 1 Memoria 30 mg/mL 3-23 Cldye mL, Route: l injectable 17:00: IVP, Drug He rmann solution 00 form: INJ, Q6H, Start date: 08/31/11 12:00:00, Duration: 4 day, Stop date: 09/04/11 6:00:00 ketorolac 2012-0 No Ketan 30 mg, 1 [facility] 30 mg/mL 3-23 [place] mL, Route: l injectable 17:00: IVP, Drug He rmann solution 00 form: INJ, Q6H, Start date: 08/31/11 12:00:00, Duration: 4 day, Stop date: 09/04/11 6:00:00 acetaminoph 2011-0 No Ketan 15 mL, [facility] en-hydrocod 3-23 [place] Route: PO, l one 16:01: Drug Form: Vince 00 ELIX, Q4H, PRN Pain, Start date: 08/31/11 11:01:00, Duration: 30 day, Stop date: 09/30/11 11:00:00 Tylenol 2011-0 No Ketan 650 mg, Mem oria 3-23 [place] 20.3 mL, l 16:01: Route: PO, [place] 00 Drug form: LIQ, Q4H, PRN Pain [...] Duration: 30 day, Stop date: 09/30/11 11:00:00 acetaminoph 2011-0 No Ketan 15 mL, [facility] en-hydrocod 3-23 [place] Route: PO, l one 16:01: Drug Form: [place] 00 ELIX, Q4H, PRN Pain, Start date: 08/31/11 11:01:00, Duration: 30 day, Stop date: 09/30/11 11:00:00 Tylenol 2011-0 No Ketan 650 mg, Mem oria 3-23 [place] 20.3 mL, l 16:01: Route: PO, [place] 00 Drug form: LIQ, Q4H, PRN Pain [...] Duration: 30 day, Stop date: 09/30/11 11:00:00 acetaminoph No Ketan 15 mL, [facility] en-hydrocod 3-23 [place] Route: PO, l one 16:01: Drug Form: Vince 00 ELIX, Q4H, PRN Pain, Start date: 08/31/11 11:01:00, Duration: 30 day, Stop date: 09/30/11 11:00:00 Tylenol No Ketan 650 mg, Mem oria 3-23 [place] 20.3 mL, l 16:01: Route: PO, [place] 00 Drug form: LIQ, Q4H, PRN Pain [...] unit, 1 l 03:00: mL, Route: Vince SUB-Q, Drug form: INJ, ONCE, Start date: 08/30/11 22:00:00, Stop date: 08/30/11 22:00:00 heparin No Ketan 5,000 Memor ia 3-23 [place] unit, 1 l 03:00: mL, Route: [place] SUB-Q, Drug form: INJ, ONCE, Start date: 08/30/11 22:00:00, Stop date: 08/30/11 22:00:00 heparin No Ketan 5,000 Memor ia 3-23 [place] unit, 1 l 03:00: mL, Route: [place] 00 SUB-Q, Drug form: INJ, ONCE, Start date: 08/30/11 22:00:00, Stop date: 08/30/11 22:00:00 Pepcid 2011-0 No Ketan 20 mg, 2 Mem oria 3-23 [place] mL, Route: l 02:00: IVP, Drug [place] 00 form: INJ, Q12H, Start date: 08/30/11 21:00:00, Duration: 30 day, Stop date: 09/29/11 9:00:00 Pepcid 2011-0 No Ketan 20 mg, 2 Mem oria 3-23 [place] mL, Route: l 02:00: IVP, Drug Vince 00 form: INJ, Q12H, Start date: 08/30/11 21:00:00, Duration: 30 day, Stop date: 09/29/11 9:00:00 Pepcid 2011-0 No Ketan 20 mg, 2 Mem oria 3-23 [place] mL, Route: l 02:00: IVP, Drug [place] 00 form: INJ, Q12H, Start date: 08/30/11 21:00:00, Duration: 30 day, Stop date: 09/29/11 9:00:00 Reglan 2011-0 No Ketan 10 mg, 2 Mem oria 3-22 [place] mL, Route: l 23:00: IVP, Drug Vince 00 form: INJ, Q8H, Start date: 08/30/11 18:00:00, Duration: 2 day, Stop date: 09/01/11 10:00:00 Reglan 2011-0 No Ketan 10 mg, 2 Mem oria 3-22 [place] mL, Route: l 23:00: IVP, Drug Vince 00 form: INJ, Q8H, Start date: 08/30/11 18:00:00, Duration: 2 day, Stop date: 09/01/11 10:00:00 Reglan 2011-0 No Ketan 10 mg, 2 Mem oria 3-22 [place] mL, Route: l 23:00: IVP, Drug [place] 00 form: INJ, Q8H, Start date: 08/30/11 18:00:00, Duration: 2 day, Stop date: 09/01/11 10:00:00 Tylenol 2011-0 No Ketan 650 mg, 1 M emoria 3-22 [place] supp, l 21:50: Route: ND, [place] 00 Drug form: SUPP, Q4H, PRN Fever, Start date: 08/30/11 16:50:00, Duration: 30 day, Stop date: 09/29/11 16:49:00 Tylenol 2011-0 No Ketan 650 mg, 1 M emoria 3-22 [place] supp, l 21:50: Route: ND, Drug form: SUPP, Q4H, PRN Fever, Start date: 08/30/11 16:50:00, Duration: 30 day, Stop date: 09/29/11 16:49:00 Tylenol 2011-0 No Ketan 650 mg, 1 M emoria 3-22 [place] supp, l 21:50: Route: ND, Drug form: SUPP, Q4H, PRN Fever, Start [...] Duration: 1 day, Stop date: 08/31/11 16:48:00 Phenergan 2011-0 No Ketan 25 mg, 1 [...] Duration: 1 day, Stop date: 08/31/11 16:48:00 Phenergan 2011-0 No Ketan 25 mg, 1 Memoria 3-22 [place] mL, Route: l 21:49: IM, Drug [place] 00 form: INJ, Q4H, PRN Nausea, Start date: [...] Wells mL, Route: l 18:46: IVP, Drug [place] 00 form: INJ, ONCE, Start date: 08/30/11 13:46:00, Stop date: 08/30/11 13:46:00 morphine 2011-0 No Bassem D 2 mg, 1 Mem oria Sulfate 3-22 [place] mL, Route: l 18:46: IVP, Drug [place] 00 form: INJ, ONCE, Start date: 08/30/11 13:46:00, Stop date: 08/30/11 13:46:00 morphine 2011-0 No Bassem D 2 mg, 1 Mem oria Sulfate 3-22 [place] mL, Route: l 18:46: IVP, Drug Vince 00 form: INJ, ONCE, Start date: 08/30/11 13:46:00, Stop date: 08/30/11 13:46:00 Phenergan 2011-0 No Bassem D 6.25 mg, Melissa zuniga 08-29 [place] Route: l 18:33: IVPB, [place] 00 ONCE, Start date: 08/30/11 13:33:00, Stop date: 08/30/11 13:33:00 Phenergan 2011-0 No Bassem D 6.25 mg, Melissa zuniga 08-29 Wells Route: l 18:33: IVPB, Vince 00 ONCE, Start date: 08/30/11 13:33:00, Stop date: 08/30/11 13:33:00 Phenergan 2011-0 No Bassem D 6.25 mg, Melissa zuniga 08-29 [place] Route: l 18:33: IVPB, Vince 00 ONCE, Start date: 08/30/11 13:33:00, Stop date: 08/30/11 13:33:00 Phenergan 2011-0 No Ketan 12.5 mg, Memoria 3-22 [place] 0.5 mL, l 17:52: Route: Vince 00 IVPB, Q6H, PRN Nausea & Vomiting, Start date: 08/30/11 12:52:00, Duration: 30 day, Stop date: 09/29/11 12:51:00 Phenergan 2012-0 No Ketan 12.5 mg, Memoria 3-22 [place] 0.5 mL, l 17:52: Route: [place] 00 IVPB, Q6H, PRN Nausea & Vomiting, Start date: 08/30/11 12:52:00, Duration: 30 day, Stop date: 09/29/11 12:51:00 Phenergan 2012-0 No Ketan 12.5 mg, Memoria 3-22 [place] 0.5 mL, l 17:52: Route: Vince 00 IVPB, Q6H, PRN Nausea & Vomiting, Start date: 08/30/11 12:52:00, Duration: 30 day, Stop date: 09/29/11 12:51:00 Zofran 2011-0 No Ketan 4 mg, 1 Teofilo osiris 3-22 [place] tab, l 17:51: Route: PO, [place] 00 Drug form: TAB, Q8H, PRN Nausea & Vomiting, Start date: 08/30/11 12:51:00, Duration: 30 day, Stop date: 09/29/11 12:50:00 Zofran 2011-0 No Ketan 4 mg, 1 Teofilo osiris 3-22 [place] tab, l 17:51: Route: PO, Drug form: TAB, Q8H, PRN Nausea & Vomiting, Start date: 08/30/11 12:51:00, Duration: 30 day, Stop date: 09/29/11 12:50:00 Zofran 2011-0 No Ketan 4 mg, 1 Teofilo osiris 3-22 [place] tab, l 17:51: Route: PO, Drug form: TAB, Q8H, PRN Nausea & Vomiting, Start date: 08/30/11 12:51:00, Duration: 30 day, Stop date: 09/29/11 12:50:00 naloxone 2011-0 No Ketan 0.2 mg, Me moria 3-22 [place] 0.5 mL, l 17:50: Route: [place] 00 IVP, Drug form: INJ, Q5Min, PRN Narcotic Reversal, Start date: 08/30/11 12:50:00, Duration: 30 day, Stop date: 09/29/11 12:49:00 naloxone 2011-0 No Ketan 0.2 mg, Me moria 3-22 [place] 0.5 mL, l 17:50: Route: Vince 00 IVP, Drug form: INJ, Q5Min, PRN Narcotic Reversal, Start date: 08/30/11 12:50:00, Duration: 30 day, Stop date: 09/29/11 12:49:00 naloxone 2011-0 No Ketan 0.2 mg, Me moria 3-22 [place] 0.5 mL, l 17:50: Route: Vince 00 IVP, Drug form: INJ, Q5Min, PRN Narcotic Reversal, Start date: 08/30/11 12:50:00, Duration: 30 day, Stop date: 09/29/11 12:49:00 morphine 2011-0 No Ketan IV, Start Memoria Sulfate 30 3-22 [place] date: l mg 17:49: 08/30/11 [place] 00 12:49:00, Duration: 30, 30 ml morphine No Ketan IV, Start Memoria Sulfate 30 08-29 [place] date: l mg 17:49: 08/30/11 [place] 00 12:49:00, Duration: 30, 30 ml morphine No Ketan IV, Start Memoria Sulfate 30 08-29 [place] date: l mg 17:49: 08/30/11 [place] 00 12:49:00, Duration: 30, 30 ml heparin No Ketan 5,000 Memor ia 3-22 [place] unit, l 14:34: Route: Vince 00 SUB-Q, ONCE, Start date: 08/30/11 9:34:00, Stop date: 08/30/11 9:34:00 heparin No Ketan 5,000 Memor ia 3-22 [place] unit, l 14:34: Route: [place] 00 SUB-Q, ONCE, Start date: 08/30/11 9:34:00, Stop date: 08/30/11 9:34:00 heparin No Ketan 5,000 Memor ia 3-22 [place] unit, l 14:34: Route: [place] 00 SUB-Q, ONCE, Start date: 08/30/11 9:34:00, Stop date: 08/30/11 9:34:00 Invanz No Ketan 1 gm, Memori a - [place] Route: l 11:30: IVPB, PRE [place] 00 OP, Start date: 08/30/11 6:30:00, Stop date: 08/30/11 17:00:00 chlorhexidi No Ketan 15 mL, Memoria ne topical 08-29 [place] Route: l 0.12% 11:30: S&SPIT, Vince liquid 00 PRE OP, Drug form: LIQ, Start date: 08/30/11 6:30:00, Stop date: 08/30/11 17:00:00 Invanz No Ketan 1 gm, Memori a -22 [place] Route: l 11:30: IVPB, PRE Vince 00 OP, Start date: 08/30/11 6:30:00, Stop date: 08/30/11 17:00:00 chlorhexidi 2011-0 No Ketan 15 mL, Memoria ne topical 08-29 [place] Route: l 0.12% 11:30: S&SPIT, [place] liquid PRE OP, Drug form: LIQ, Start date: 08/30/11 6:30:00, Stop date: 08/30/11 17:00:00 Invanz 2011-0 No Ketan 1 gm, Memori a 08-29 [place] Route: l 11:30: IVPB, PRE [place] 00 OP, Start date: 08/30/11 6:30:00, Stop date: 08/30/11 17:00:00 chlorhexidi 2011-0 No Ketan 15 mL, Memoria ne topical 08-29 [place] Route: l 0.12% 11:30: S&SPIT, Vince liquid PRE OP, Drug form: LIQ, Start date: 08/30/11 6:30:00, Stop date: 08/30/11 17:00:00 prednisone prednisone No prednisone Khushbu 5 mg [...] MD by other MD by other Sports MD Medicin e tramadol 50 tramadol 50 No tramadol Khushbu [...] tablet RX Sports MD DILLON by other Roque [place] hydroxychlo hydroxychlo No 1 BID hydroxychl [...] MD by other MD by other Sports MD Nevarez e oxycodone-a oxycodone-a No oxycodone- Khushbu cetaminophe cetaminophe acetaminop [facility] n 10 mg-325 n 10 mg-325 hen 10 dic mg tablet mg tablet mg-325 mg Sports RX by other RX by other tablet RX Roque DILLON MD by other johanny DILLON prednisone prednisone No prednisone Khushbu 5 mg [...] RX by other tablet RX dic MD MD by other Sports MD Medicin e cephalexin cephalexin No cephalexin Khushbu [...] day once a day once a day Eliquis 2.5 Eliquis 2.5 No Eliquis Khushbu [...] MD by other MD by other Sports MD Medicin e methocarbam methocarbam No methocarba Khushbu [...] by other RX by other tablet RX Roque DILLON MD by other e oxycodone-a oxycodone-a No oxycodone- Khushbu cetaminophe cetaminophe acetaminop Orthope n 5 mg-325 n 5 mg-325 hen 5 di c mg tablet mg tablet mg-325 mg Sports tablet Medicin e pantoprazol pantoprazol No pantoprazo Khushbu e 40 mg e 40 mg le 40 mg Ortho pe tablet,carlita tablet,carlita tablet,del dic yed release yed release ayed S ports release Medicin e Immunizations Ordered Immunization Filled Immunization Date Status Commen ts Source Name Name pneumococcal 2016-02-15 Completed [facility] 13-valent vaccine 15:38:00 [place] pneumococcal 2016-02-15 Completed [facility] 13-valent vaccine 15:38:00 [place] pneumococcal 2016-02-15 Completed [facility] 13-valent vaccine 15:38:00 [place] pneumococcal 2016-02-15 Completed [facility] 13-valent vaccine 15:38:00 [place] pneumococcal 2016-02-15 Completed [facility] 13-valent vaccine 15:38:00 Vince pneumococcal 2016-02-15 Completed [facility] 13-valent vaccine 15:38:00 Vince Vital Signs Vital Name Observation Time Observation Value Comments Source Systolic blood 2022-08-07 17:50:00 104 mm[Hg] [facility] Diastolic blood 2022-08-07 17:50:00 79 mm[Hg] [facility] Heart rate 2022-08-07 17:50:00 107 [facility]min [facility] temperature 2022-08-07 17:50:00 [facility]56 [facility] height 2022-08-07 17:50:00 [facility]6 [facility] weight 2022-08-07 17:50:00 [facility]803 [facility] BMI 2022-08-07 17:50:00 18.08 [facility]m2 [facility] BP Diastolic 2022-04-02 00:00:00 82 mm[Hg] Khushbu [...] 00:00:00 134.7 [lb_av] [facility] Systolic (mm Hg) 2022-08-03 14:17:00 Teofilo rial Vince Diastolic (mm Hg) 2022-08-03 14:17:00 Mem o[facility] [place] Heart Rate 2022-08-03 14:17:00 [facility] Temperature Oral (F) 2022-08-02 01:06:19 98.6 F [facility] Temperature Oral (F) 2022-07-28 20:21:22 98.7 F [facility] Weight 2022-07-25 16:10:00 [facility] [place] Height 2022-07-22 04:01:00 5 [ft_i] [facility] BMI Calculated 2022-07-22 03:00:00 [facility] al [place] Respitory Rate 2021-10-31 20:43:00 [facility] al [place] Height 2021-10-31 20:43:00 167.64 cm [facility] Systolic (mm Hg) 2021-10-31 20:15:35 Teofilo rial [place] Diastolic (mm Hg) 2021-10-31 20:15:35 Mem orial [place] Heart Rate 2021-10-31 20:15:35 [facility] [place] Temperature Oral (F) 2021-08-09 13:30:00 98 F [facility] Heart Rate 2021-08-09 13:30:00 [facility] Respitory Rate 2021-08-09 13:30:00 [facility] al [place] Systolic (mm Hg) 2021-08-09 13:30:00 Teofilo rial [place] Diastolic (mm Hg) 2021-08-09 13:30:00 Mem [facility] [place] Heart Rate 2021-08-09 03:30:00 [facility] [place] Respitory Rate 2021-08-09 03:30:00 [facility] [place] Systolic (mm Hg) 2021-08-09 03:30:00 Teofilo rial [place] Diastolic (mm Hg) 2021-08-09 03:30:00 [facility] [place] Heart Rate 2021-08-09 03:22:00 [facility] [place] Respitory Rate 2021-08-09 03:22:00 [facility] [place] Systolic (mm Hg) 2021-08-09 03:22:00 Teofilo rial [place] Diastolic (mm Hg) 2021-08-09 03:22:00 [facility] [place] Temperature Oral (F) 2021-08-09 01:30:00 98.5 F [facility] [place] Temperature Oral (F) 2021-08-08 19:30:00 98.2 F [facility] [place] Height 2021-07-22 04:15:00 167.64 cm [facility] Weight 2021-07-22 04:15:00 [facility] Vince BMI Calculated 2021-07-22 04:15:00 Mem[facility] al Vince BMI Calculated 2017-08-20 20:22:00 [facility] [place] Weight 2017-08-20 20:22:00 [facility] [place] Height 2017-08-20 20:22:00 172.72 cm [facility] [place] Heart Rate 2017-08-20 20:22:00 [facility] [place] Temperature Oral (F) 2017-08-20 20:22:00 97.7 F [facility] [place] Systolic (mm Hg) 2017-08-20 20:22:00 Teofilo rial [place] Diastolic (mm Hg) 2017-08-20 20:22:00 Mem o[facility] [place] Height 2017-07-09 20:53:00 172.72 cm [facility] Vince BMI Calculated 2017-07-09 20:53:00 [facility] al [place] Weight 2017-07-09 20:53:00 [facility] Heart Rate [...] Vince BMI Calculated 2017-05-29 19:33:00 [facility] [place] Weight 2017-05-29 19:33:00 [facility] Heart Rate 2017-05-29 19:33:00 [facility] Systolic (mm Hg) 2017-05-29 19:33:00 Teofilo rial Vince Diastolic (mm Hg) 2017-05-29 19:33:00 Mem o[facility] [place] Height 2017-05-29 19:33:00 172.72 cm [facility] Height 2017-05-20 20:39:00 172.72 cm [facility] [place] Systolic (mm Hg) 2017-05-20 20:39:00 Teofilo rial Vince Diastolic (mm Hg) 2017-05-20 20:39:00 Mem orial [place] Heart Rate 2017-05-20 20:39:00 [facility] [place] BMI Calculated 2017-04-29 16:18:00 Mem[facility] al [place] Height 2017-04-29 16:18:00 172.72 cm [facility] [place] Weight 2017-04-29 16:18:00 [facility] Systolic (mm Hg) 2017-04-29 16:18:00 Teofilo rial Vince Diastolic (mm Hg) 2017-04-29 16:18:00 Mem orial [place] Temperature Oral (F) 2017-04-29 16:18:00 98.2 F [facility] [place] BMI Calculated 2017-04-26 20:56:00 Memori al [place] Weight 2017-04-26 20:56:00 [facility] [place] Height 2017-04-26 20:56:00 173.99 cm [facility] [place] Temperature Oral (F) 2017-04-26 20:56:00 98.5 F [facility] Heart Rate 2017-04-26 20:56:00 [facility] Systolic (mm Hg) 2017-04-26 20:56:00 Teofilo rial Vince Diastolic (mm Hg) 2017-04-26 20:56:00 Mem orial Vince Respitory Rate 2016-08-14 19:00:00 Memori al [place] Systolic (mm Hg) 2016-08-14 19:00:00 Teofilo rial Vince Diastolic (mm Hg) 2016-08-14 19:00:00 Mem orial [place] Systolic (mm Hg) 2016-08-14 18:45:00 Teofilo rial Vince Diastolic (mm Hg) 2016-08-14 18:45:00 Mem orial Vince Respitory Rate 2016-08-14 18:45:00 Mem[facility] al [place] Systolic (mm Hg) 2016-08-14 18:30:00 Teofilo rial Vince Diastolic (mm Hg) 2016-08-14 18:30:00 Mem orial Vince Respitory Rate 2016-08-14 18:30:00 [facility] al [place] Heart Rate 2016-08-14 13:57:00 [facility] [place] Height 2016-08-14 13:54:00 172.72 cm [facility] [place] BMI Calculated 2016-08-14 13:54:00 [facility] [place] Weight 2016-08-14 13:54:00 [facility] [place] BMI Calculated 2016-08-10 21:13:00 Memori al [place] Weight 2016-08-10 21:13:00 [facility] [place] Height 2016-08-10 21:13:00 172.72 cm [facility] [place] Temperature Oral (F) 2016-02-15 13:08:00 98.1 F [facility] Systolic (mm Hg) 2016-02-15 13:08:00 Teofilo rial Vince Diastolic (mm Hg) 2016-02-15 13:08:00 [facility] [place] Heart Rate 2016-02-15 13:08:00 [facility] Vince Respitory Rate 2016-02-15 13:08:00 Mem[facility] al [place] Systolic (mm Hg) 2016-02-15 09:06:00 Teofilo rial Vince Diastolic (mm Hg) 2016-02-15 09:06:00 Mem orial Vince Respitory Rate 2016-02-15 09:06:00 [facility] [place] Heart Rate 2016-02-15 09:06:00 [facility] Temperature Oral (F) 2016-02-15 09:06:00 98.1 F [facility] [place] Temperature Oral (F) 2016-02-15 04:43:00 98.2 F [facility] Systolic (mm Hg) 2016-02-15 04:43:00 Teofilo rial Vince Diastolic (mm Hg) 2016-02-15 04:43:00 [facility] [place] Respitory Rate 2016-02-15 04:43:00 [facility] [place] Heart Rate 2016-02-15 04:43:00 [facility] [place] Height 2016 11:41:00 172.72 cm [facility] [place] Weight 2016 11:41:00 [facility] [place] BMI Calculated 2016 11:41:00 Mem[facility] al [place] Height 2016-02-09 15:30:00 172.72 cm [facility] BMI Calculated 2016-02-09 15:30:00 [facility] [place] Weight 2016-02-09 15:30:00 [facility] [place] Height 2012-12-02 15:57:00 172.72 cm [facility] [place] Weight 2012-12-02 15:57:00 [facility] Temperature Oral (F) 2011-09-01 00:10:00 98.9 F [facility] Systolic (mm Hg) 2011-09-01 00:10:00 Teofilo rial Vince Heart Rate 2011-09-01 00:10:00 [facility] [place] Respitory Rate 2011-09-01 00:10:00 Mem[facility] al [place] Diastolic (mm Hg) 2011-09-01 00:10:00 [facility] [place] Diastolic (mm Hg) 2011-08-31 20:00:00 [facility] [place] Systolic (mm Hg) 2011-08-31 20:00:00 Teofilo rial Vince Respitory Rate 2011-08-31 20:00:00 [facility] al [place] Temperature Oral (F) 2011-08-31 20:00:00 98.7 F [facility] [place] Heart Rate 2011-08-31 20:00:00 [facility] [place] Diastolic (mm Hg) 2011-08-31 16:40:00 Mem o[facility] [place] Systolic (mm Hg) 2011-08-31 16:40:00 Teofilo rial [place] Respitory Rate 2011-08-31 16:40:00 [facility] [place] Heart Rate 2011-08-31 16:40:00 [facility] Temperature Oral (F) 2011-08-31 16:40:00 98.8 F [facility] [place] Weight 2011-08-24 21:17:00 [facility] Vince Height 2011-08-24 21:17:00 175.26 cm [facility] [place] Weight 2011-06-12 16:09:00 [facility] [place] Height 2011-06-12 16:09:00 175.26 cm [facility] Vince Procedures Procedure Date / Time Performing Clinician Source Performed Injection(s), anesthetic 2017-07-18 21:26:00 [facility] orial [place] agent and/or steroid, transforaminal epidural, with imaging guidance (fluoroscopy or CT); lumbar or sacral, single level Epidural steroid 2017-07-09 06:00:00 [facility] rmann injection<sup>1</sup> Epidural steroid 2017-05-21 06:00:00 [facility] Mohamud rmann injection<sup>2</sup> Microdiscectomy 2016-08-14 06:00:00 Cris felder Cervical discectomy 2016 05:00:00 Cris Clarke Miscellaneous operations 2011-08-30 05:00:00 Paul Clarke <sup>3</sup> Miscellaneous 2011-08-30 05:00:00 [facility] Her felder operations<sup>3</sup> Arthroscopy of knee [facility] Hysterectomy [facility] [place] Jah-en-y gastric bypass Clover Clarke <sup>4</sup> Arthroscopy of knee [facility] Hysterectomy [facility] Jah-en-y gastric [facility] Dolores nn bypass<sup>6</sup> Plan of Care Planned Activity Planned Date Details Comments Source Diagnostic Test 2022-04-02 CBC [code = CBC] [facility] Pending 00:00:00 Sports Medicine Diagnostic Test 2022-04-02 CMP, serum or [facility] Pending 00:00:00 plasma [code = Sports Medici ne CMP, serum or plasma] Encounters Start End Encounter Admission Attending Care Care Encounter Source Date/Time Date/Time Type Type Clinicians Facility Department ID 2022-08-09 Outpatient [facility] [id number] [place] 22:[place]:27 [id number] [facility] 2022-08-07 Outpatient [facility] [id number] [place] 11:29:59 [id number] [facility] 2022-08-01 Outpatient [facility] [id number] [place] 15:06:11 [id number] [facility] 2022-07-31 Outpatient [facility] [id number] [place] 07:51:02 [id number] [facility] 2022-07-23 Outpatient [facility] [id number] [place] 11:13:23 [id number] [facility] 2020-11-15 Inpatient EL RICHAR MondragonTO LABO [id number] [facility] 14[facility] [place] [id number] [facility] 2020-11-10 Inpatient EL Alanna HCATO ADMI [id number] [facility] 14:00:00 [place] [id number] [facility] 2020-11-03 Inpatient DENA Mondragon HCATO [id number] [facility] 13:00:00 [place] [id number] [facility] 2022-08-07 2022-08-07 Office Sarah [facility] [id number] [place] 11:15:00 13:03:35 Visit Shelly SUGAR [id number] [facility] [id number] [place] [address] [id number] AND 4 WOMENS 2022-08-07 2022-08-07 Outpatient [facility]RAEL KONG [facility] [id number] [place] 00:00:00 00:00:[address] 2022-07-22 2022-08-03 Inpatient MHIE TIRR [id number] [facility] 01:56:00 17:22:00 Rehab [facility] 07 l Vince Vince 2022-07-21 2022-08-03 Outpatient DANG Sebastian MHTIRR [id number] 19:56:00 11:22:00 [place] 2022-07-12 2022-07-21 [facility] [id number] [place] 00:00:00 00:00:00 [facility] [address] 2022-07-12 2022-07-12 Outpatient [facility] [place] [facility] [id number] [place] 00:00:00 00:00:00 REX [address] 2022-07-12 2022-07-12 Outpatient LEV [facility] [id number] [place] 00:00:00 00:00:00 ERX [address] 2022-07-03 2022-07-03 Outpatient ISRAEL KONG [facility] [id number] [place] 00:00:00 00:00:[address] 2022-06-26 2022-06-26 Outpatient TARA LINDSEY [facility] [id number] [place] 00:00:00 00:00:[address] 2022-06-14 2022-06-14 Outpatient AALIYAH CARPENTER [facility] [id number] [place] 00:00:00 00:00:[address] 2022-06-14 2022-06-14 Outpatient AALIYAH CARPENTER [facility] [id number] [place] 00:00:00 00:00:[address] 2022-06-06 2022-06-06 Outpatient TONI [facility] [id number] [place] 00:00:00 00:00:00 NICOLASA [address] 2022-06-06 2022-06-06 Outpatient TONI [facility] [id number] [place] 00:00:00 00:00:00 NICOLASA 445 Method i 2022-05-20 2022-05-29 Inpatient JOSSIE [facility] [id number] [place] 00:00:00 00:00:00 RUSS 320 [facility] i 2022-05-10 2022-05-10 Outpatient LEV [facility] [id number] 530 [place] 00:00:00 00:00:00 REX 547 [facility] i 2022-04-19 2022-04-19 Outpatient SALO [facility] [id number] [place] 00:00:00 00:00:00 TIFFANIE 766 Method i 2022-04-18 2022-04-18 Outpatient LEV [facility] [id number] 434 [place] 00:00:00 00:00:00 REX 392 [facility] i 2022-04-18 2022-04-18 Outpatient LEV [facility] [id number] 424 [place] 00:00:00 00:00:00 REX 538 Method i 2022-04-05 2022-04-05 Outpatient ISRAEL KONG [facility] [id number] [place] 00:00:00 00:00:[address] 2022-04-02 2022-04-02 Outpatient FOG_Fukuda_ [facility] A[facility] 562 1030-20 [place] 00:00:00 00:00:00 Jo-Ann [id number] [facility] 2022-04-02 2022-04-02 Lizz ANDREWS [place] - Ortho [id number] [place] 00:00:00 00:00:00 MD Fortino: Steph Echevarria - Orthope [address] FOG_Ofc dic [facility] [place], [place] [phone] , Ph. [phone] 2022-04-02 2022-04-02 Outpatient EMIR, [facility] [id number] [place] 00:00:00 00:00:00 YVETTE [address] 2022-03-29 2022-03-29 Outpatient FOG_Fukuda_ AOSM AOSM 562 1030-20 [place] 00:00:00 00:00:00 Jo-Ann [id number] Orth [facility] 2022-03-26 2022-03-26 Outpatient LEONG, [facility] [id number] [place] 00:00:00 00:00:00 TIFFANIE [address] 2022-03-26 2022-03-26 Outpatient LEONG, [facility] [id number] [place] 00:00:00 00:00:00 T[address]ARENT [address] 2022-03-08 2022-03-08 Outpatient ISRAEL KONG [facility] [id number] [place] 00:00:00 00:00:[address] 2022-02-19 2022-02-19 Outpatient [facility] [id number] [place] 00:00:00 00:00:[address] 2022-02-19 2022-02-19 Outpatient [facility] [id number] [place] 00:00:00 00:00:[address] 2022-01-30 2022-01-31 Inpatient EMIR, [facility] [id number] [place] 00:00:00 00:00:00 YVETTE [address] 2022-01-29 2022-01-29 Outpatient [facility] [id number] [place] 00:00:00 00:00:[address] 2022-01-29 2022-01-29 Outpatient [facility] [id number] [place] 00:00:00 00:00:[address] 2022-01-26 2022-01-26 Outpatient FOG_Fukuda_ AOSM AOSM 562 1030-20 [place] 00:00:00 00:00:00 Jo-Ann [id number] Orth ope dic Sports Medicin e 2021-12-27 2021-12-27 Outpatient FOG_Fukuda_ AOSM AOSM 562 1030-20 [place] 12:08:00 12:08:00 Jo-Ann [id number] Orth ope dic Sports Medicin e 2021-12-27 2021-12-27 Lizz Eve[place] [facility] [place] - Ortho [id number] [place] 00:00:00 00:00:00 MD Fortino: Steph Echevarria - Orthope [address] FOG_Ofc dic [facility] [place]por [place], [place] [phone] , Ph. [phone] 2021-12-27 2021-12-27 Outpatient JULIANA Freitas AO [id number] 00:00:00 00:00:00 Lizz Everett [id number] 7972-07-20 2021-12-27 Outpatient EMIR, [facility] [id number] [place] 00:00:00 00:00:00 YVETTE 883 Method i 2021-12-27 2021-12-27 Outpatient EMIR, [facility] [id number] [place] 00:00:00 00:00:00 YVETTE 168 Method i 2021-12-21 2021-12-21 Outpatient FOG_Fukuda_ AOSM AOSM 562 1030-20 [place] 11:59:00 11:59:00 Jo-Ann [id number] Orth ope dic Sports Medicin e 2021-12-15 2021-12-18 Inpatient EMIR, [facility] 021 [id number] [place] 00:00:00 00:00:00 YVETTE 175 Method i 2021-11-30 2021-11-30 Outpatient EMIR, [facility] [id number] [place] 00:00:00 00:00:00 YVETTE 440 Method i 2021-11-27 2021-11-27 Outpatient EMIR, [facility] [id number] [place] 00:00:00 00:00:00 YVETTE 645 Method i 2021-11-27 2021-11-27 Outpatient EMIR, [facility] [id number] [place] 00:00:00 00:00:00 YVETTE 018 Method i 2021-11-16 2021-11-16 Outpatient LUANNISRAEL Dee [facility] [id number] [place] 00:00:00 00:00:00 448 Method i 2021-11-10 2021-11-10 Outpatient EMIR, [facility] [id number] [place] 00:00:00 00:00:00 YVETTE 651 Method i 2021-10-31 2021-11-01 Outpatient nullFlavo TR Sp[facility] [id number] [place] 19:55:00 04:59:00 r Cord Inj 06 l [facility] [place] ([facility]) 2021-10-31 2021-11-01 Outpatient nullFlavo TR Sp[facility] [id number] [place] 19:55:00 04:59:00 r Cord Inj 06 l [facility] ([facility]) 2021-10-31 2021-10-31 Outpatient DANG Sebsatian T[facility] [id number] 14:55:00 23:59:00 Tucker Diego 2021-10-26 2021-10-26 Outpatient EMIR, [facility] [id number] [place] 00:00:00 00:00:00 YVETTE 151 Method i 2021-10-13 2021-10-13 Outpatient EMIR, [facility] [id number] [place] 00:00:00 00:00:00 YVETTE 397 Method i 2021-10-13 2021-10-13 Outpatient EMIR, [facility] [id number] [place] 00:00:00 00:00:00 YVETTE 375 Method i 2021-10-13 2021-10-13 Outpatient EMIR, [facility] [id number] [place] 00:00:00 00:00:00 YVETTE 570 Method i 2021-09-18 2021-09-18 Outpatient LEV, [facility] [id number] 341 [place] 00:00:00 00:00:00 REX 198 Method i 2021-08-17 2021-08-17 Outpatient HUNTER, [facility] [id number] 245 [place] 00:00:00 00:00:00 KAREN 409 Metho di 2021-07-22 2021-08-09 Inpatient nullFlavo [facility] [id number] [place] 03:55:00 17:40:00 [facility] l [facility] 2021-07-22 2021-08-09 Inpatient nullFlavo [facility] [id number] [place] 03:55:00 17:40:00 [facility] l [facility] 2021-07-21 2021-08-09 Outpatient DANG Sebastian MHTIRR [id number] 21:55:00 11:40:00 Tucker Diego 2021-08-07 2021-08-07 Outpatient LEV, H [facility] [id number] [place] 00:00:00 00:00:00 REX 294 Method i 2021-08-07 2021-08-07 Outpatient LEV, [facility] [id number] [place] 00:00:00 00:00:00 REX [address] 2021-08-07 2021-08-07 Outpatient LEV, H H [id number] 040 [place] 00:00:00 00:00:00 REX 614 Method i 2021-08-07 2021-08-07 Outpatient LEV, [facility] [id number] [place] 00:00:00 00:00:00 REX 034 Method i 2021-08-07 2021-08-07 Outpatient LEV, [facility] [id number] [place] 00:00:00 00:00:00 REX 036 Method i 2021-08-07 2021-08-07 Out[facility] LEV, [facility] [id number] [place] 00:00:00 00:00:00 REX 440 Method i 2021-07-13 2021-07-21 Inpatient LEV, [facility] [id number] [place] 00:00:00 00:00:00 REX 639 Method i 2021-07-11 2021-07-11 Outpatient LEV, [facility] [id number] [place] 00:00:00 00:00:00 REX 347 Method i 2021-07-03 2021-07-03 Outpatient LEV, [facility] [id number] [place] 00:00:00 00:00:00 REX 358 Method i 2021-07-03 2021-07-03 Outpatient LEV, [facility] [id number] [place] 00:00:00 00:00:00 REX [address] 2021-07-03 2021-07-03 [facility] [id number] [place] 00:00:00 00:00:00 REX 584 Method i 2021-06-12 2021-06-12 Outpatient EMIR, [facility] [id number] [place] 00:00:00 00:00:00 YVETTE [address] 2021-05-23 2021-05-23 Outpatient HUNTER, [facility] [id number] [place] 00:00:00 00:00:00 KAREN [address] 2021-05-22 2021-05-22 Outpatient [facility] [id number] 412 [place] 00:00:00 00:00:[address] 2021-05-22 2021-05-22 Outpatient [facility] [id number] [place] 00:00:00 00:00:[address] 2021-05-10 2021-05-15 Inpatient BURNETTE, [facility] [id number] [place] 00:00:00 00:00:00 JING [address] 2021-05-02 2021-05-02 Outpatient EMIR, [facility] [id number] [place] 00:00:00 00:00:00 YVETTE [address] 2021-04-17 2021-04-17 Outpatient EMIR, [facility] [id number] [place] 00:00:00 00:00:00 YVETTE [address] 2021-04-17 2021-04-17 Outpatient EMIR, [facility] [id number] [place] 00:00:00 00:00:00 YVETTE [address] 2021-04-10 2021-04-10 Outpatient HUNTER, [facility] [id number] [place] 00:00:00 00:00:00 KAREN [address] 2021-03-27 2021-03-27 Outpatient EMIR, [facility] [id number] [place] 00:00:00 00:00:00 YVETTE [address] 2021-03-27 2021-03-27 Outpatient EMIR, [facility] [id number] [place] 00:00:00 00:00:00 YVETTE [address] 2021-03-13 2021-03-13 Outpatient HUNTER, [facility] [id number] [place] 00:00:00 00:00:00 KAREN [address] 2021-03-06 2021-03-06 Outpatient [facility] [id number] [place] 00:00:00 00:00:[address] 2021-03-06 2021-03-06 Outpatient [facility] [id number] [place] 00:00:00 00:00:[address] 2021-02-20 2021-02-26 Inpatient EMIR, [facility] [id number] [place] 00:00:00 00:00:00 YVETTE [address] 2021-02-20 2021-02-20 Outpatient OHARA, [facility] [id number] [place] 00:00:00 00:00:00 REX 436 Method i 2021-02-20 2021-02-20 Outpatient OHARA, [facility] [id number] 405 [place] 00:00:00 00:00:00 REX 910 Method i 2021-02-17 2021-02-17 Outpatient HUNTER, [facility] [id number] [place] 00:00:00 00:00:00 KAREN 015 Metho di 2021-02-17 2021-02-17 Outpatient UHNTER, [facility] [id number] [place] 00:00:00 00:00:00 KAREN 184 Metho di 2021-02-16 2021-02-16 Outpatient HUNTER, [facility] [id number] [place] 00:00:00 00:00:00 KAREN 921 Metho di 2021 2021 Outpatient HUNTER, [facility] [id number] [place] 00:00:00 00:00:00 KAREN 208 Metho di 2021-02-09 2021-02-09 Outpatient HUNTER, [facility] [id number] [place] 00:00:00 00:00:00 KAREN 930 Metho di 2021-01-30 2021-01-30 Outpatient EMIR, [facility] [id number] [place] 00:00:00 00:00:00 YVETTE 100 Method i 2021-01-30 2021-01-30 Outpatient EMIR, [facility] [id number] 993 [place] 00:00:00 00:00:00 YVETTE 764 Method i 2021-01-22 2021-01-22 Emergency EADEH, [facility] [id number] [place] 00:00:00 00:00:00 ANISH 918 Method i 2021-01-13 2021-01-13 Outpatient EMIR, [facility] [id number] [place] 00:00:00 00:00:00 YVETTE [address] 2021-01-13 2021-01-13 Outpatient EMIR, [facility] [id number] [place] 00:00:00 00:00:00 YVETTE [address] 2021-01-12 2021-01-12 Outpatient HUNTER, [facility] [id number] [place] 00:00:00 00:00:00 KAREN 330 Metho di 2021-01-04 2021-01-05 Outpatient MONTEZ, [facility] [id number] [place] 00:00:00 00:00:00 YANET 105 Method i 2020-12-16 2020-12-16 Outpatient [facility] [id number] [place] 00:00:00 00:00:00 973 Method i 2020-12-05 2020-12-06 Outpatient HUNTER, [facility] [id number] 150 [place] 00:00:00 00:00:00 KAREN 760 Metho di 2020-12-02 2020-12-02 Outpatient EMIR, [facility] [id number] [place] 00:00:00 00:00:00 YVETTE 191 Method i 2020-12-02 2020-12-02 Outpatient [facility] [id number] [place] 00:00:00 00:00:00 549 Method i 2020-11-22 2020-11-29 Inpatient MONTEZ, [facility] [id number] [place] 00:00:00 00:00:00 YANET 466 Method i 2020-11-21 2020-11-21 Outpatient EMIR, [facility] [id number] [place] 00:00:00 00:00:00 YVETTE 116 Method i 2020-11-21 2020-11-21 Outpatient EMIR, [facility] [id number] 528 [place] 00:00:00 00:00:00 YVETTE 021 Method i 2020-11-14 2020-11-14 Outpatient [facility] [id number] [place] 00:00:00 00:00:[address] 2020-11-14 2020-11-14 Outpatient [facility] [id number] [place] 00:00:00 00:00:[address] 2020-11-04 2020-11-07 Inpatient CÉSAR, UMAR [facility] [id number] [place] 00:00:00 00:00:[address] 2020-11-02 2020-11-02 Outpatient RICHAR SmithTO LABO [id number] [facility] 08:00:00 23:59:00 Ug[place] [id number] [facility] 2020-11-02 2020-11-02 Outpatient RICHAR MondragonCL LABO [id number] [facility] 18:13:00 18:13:00 Ugonna 90 [facility] 2020-10-24 2020-10-24 Outpatient DALE [facility] [id number] [place] 00:00:00 00:00:00 KAREN [address] 2020-10-01 2020-10-02 Outpatient MELIDA, [facility] [id number] [place] 00:00:00 00:00:00 YANET [address] 2020-09-30 2020-09-30 Outpatient PEPITO ASHLEY [facility] [id number] [place] 00:00:00 00:00:[address] 2020-09-30 2020-09-30 Outpatient PEPITO [facility] [id number] [place] 00:00:00 00:00:[address] 2020-09-15 2020-09-[address] [facility] [id number] [place] 00:00:00 00:00:[address] 2020-09-12 2020-09-12 Outpatient PEPITO ASHLEY [facility] [id number] [place] 00:00:00 00:00:[address] 2020-09-12 2020-09-12 Outpatient PEPITO [facility] [id number] [place] 00:00:00 00:00:[address] 2020-09-12 2020-09-12 Outpatient PEPITO [facility] [id number] [place] 00:00:00 00:00:[address] 2020-09-01 2020-09-[address] [facility] [id number] [place] 00:00:00 00:00:[address] 2020-08-23 2020-08-26 Inpatient ASHLEY BEYER [facility] [id number] [place] 00:00:00 00:00:[address] 2020-08-19 2020-08-19 Outpatient ASHLEY BEYER [facility] [id number] [place] 00:00:00 00:00:[address] 2020-08-16 2020-08-16 Outpatient ASHLEY BEYER [facility] [id number] [place] 00:00:00 00:00:[address] 2020-08-11 2020-08-11 Outpatient ASHLEY BEYER [facility] [id number] [place] 00:00:00 00:00:[address] 2020-08-01 2020-08-10 Outpatient ASHLEY BEYER [facility] [id number] [place] 00:00:00 00:00:[address] 2020-08-01 2020-08-01 Outpatient ASHLEY BEYER [facility] [id number] [place] 00:00:00 00:00:[address] 2020-08-01 2020-08-01 Outpatient ASHLEY BEYER [facility] [id number] [place] 00:00:00 00:00:[address] 2020-08-01 2020-08-01 Outpatient DALE [facility] [id number] [place] 00:00:00 00:00:00 KAREN Polanco [facility] 2020-08-01 2020-08-01 Outpatient ASHLEY BEYER [facility] [id number] [place] 00:00:00 00:00:[address] 2020-07-18 2020-07-18 Outpatient LEV [facility] [id number] [place] 00:00:00 00:00:00 REX [address] 2020-07-18 2020-07-18 Outpatient LEV [facility] [id number] [place] 00:00:00 00:00:00 REX [address] 2020-07-18 2020-07-18 Outpatient LEV [facility] [id number] 850 [place] 00:00:00 00:00:00 REX [address] 2020-06-23 2020-06-23 Outpatient HUNTER, [facility] [id number] [place] 00:00:00 00:00:00 KAREN [address] 2020-06-20 2020-06-20 Outpatient Wendy, HCATO RADI [id number] [facility] 08:30:00 08:30:00 Antwan [address] [facility] 2020-05-27 2020-05-27 Outpatient Wendy, HCATO RADI [id number] [facility] 13:30:00 13:30:00 Antwan 106[address] [facility] 2020-05-26 2020-05-26 Outpatient HUNTER, [facility] [id number] [place] 00:00:00 00:00:00 KAREN [address] 2020-05-02 2020-05-02 Outpatient DALE, [facility] [id number] [place] 00:00:00 00:00:00 KAREN [address] 2020-04-26 2020-04-26 Emergency Morris, [facility] [id number] 15:53:00 18:18:00 Annalisa Maxwell [id number] [place] [id number] [place] [id number] 2020-04-26 2020-04-26 Emergency X [facility] ERT [id number] [facility] 15:39:00 15:39:00 ity of [facility] 2020-04-26 2020-04-26 Orders Doctor COLLINS [id number] 00:00:00 00:00:00 Only Unassigned, JOSH [id number] [facility] [id number] 2020-04-14 2020-04-14 Outpatient Wendy, HCATO SURG [id number] [facility] 09:15:00 09:15:00 Antwan [id number] [facility] 2020-04-14 2020-04-14 Outpatient DALE, [facility] [id number] [place] 00:00:00 00:00:00 KAREN [address] 2020-04-13 2020-04-13 Outpatient Wendy, [facility] [id number] [facility] 18:17:00 18:17:00 [facility]twan [facility] 2020-03-14 2020-03-14 Outpatient LEV, [facility] [id number] [place] 00:00:00 00:00:00 REX 023 Method i 2020-03-14 2020-03-14 Outpatient LEV, [facility] [id number] [place] 00:00:00 00:00:00 REX 389 Method i 2020-03-02 2020-03-02 Outpatient JOSE, [facility] [id number] [place] 00:00:00 00:00:00 MARÍA 132 Method i 2020-03-02 2020-03-02 Outpatient JOSE, [facility] [id number] [place] 00:00:00 00:00:00 MARÍA 095 Method i 2020-02-22 2020-02-22 Outpatient HUNTER, [facility] [id number] [place] 00:00:00 00:00:00 KAREN 362 Metho di 2020-02-15 2020-02-17 Inpatient MELIDA, [facility] [id number] [place] 00:00:00 00:00:00 YANET 467 Method i 2020-01-14 2020-01-14 Outpatient HUNTER, [facility] [id number] [place] 00:00:00 00:00:00 KAREN 553 Metho di 2020-01-11 2020-01-11 Outpatient LEV, [facility] [id number] [place] 00:00:00 00:00:00 REX 784 Method i 2020-01-11 2020-01-11 Outpatient LEV, [facility] [id number] 494 [place] 00:00:00 00:00:00 REX 815 Method i 2019-12-28 2019-12-28 Outpatient DALE, [facility] [id number] [place] 00:00:00 00:00:00 KAREN 560 Metho di 2019-12-16 2019-12-20 Inpatient LEV, [facility] [id number] [place] 00:00:00 00:00:00 REX 904 Method i 2019-12-14 2019-12-14 Outpatient LEV, [facility] [id number] [place] 00:00:00 00:00:00 REX [address] 2019-12-07 2019-12-07 Outpatient LEV [facility] [id number] [place] 00:00:00 00:00:00 REX [address] 2019-12-07 2019-12-07 Outpatient LEV [facility] [id number] [place] 00:00:00 00:00:00 REX [address] 2019-11-09 2019-11-09 Outpatient LEV [facility] [id number] [place] 00:00:00 00:00:00 REX [address] 2019-11-09 2019-11-09 Outpatient LEV [facility] [id number] [place] 00:00:00 00:00:00 REX 484 [facility] 2019-08-03 2019-08-03 Outpatient LEV [facility] [id number] [place] 00:00:00 00:00:00 REX 167 [facility] 2017-09-25 2017-09-27 Phone nullFlavo [facility] [id number] [place] 16:46:00 04:59:59 Message r Clinic [facility] 32 [facility] 2017-09-25 2017-09-27 Phone nullFlavo [facility] [id number] [place] 16:46:00 04:59:59 Message r Clinic [facility] 32 [facility] 2017-09-25 2017-09-26 Outpatient MHMISCHER MHMISCHER [id number] 11:46:00 23:59:59 32 2017-08-20 2017-08-21 Outpatient nullFlavo [facility] [id number] [place] 14:30:00 04:59:59 r Clinic [facility] 29 [facility] 2017-08-20 2017-08-21 Outpatient nullFlavo [facility] [id number] [place] 14:30:00 04:59:59 r Clinic [facility] 29 [facility] 2017-08-20 2017-08-20 Outpatient Pasha Goldstein MHMISCHER MHMISCHER [id number] 09:30:00 23:59:59 Az[place] 29 2017-08-20 2017-08-20 Outpatient MHIE MHIE [id number] [place] 09:30:00 09:30:00 29 [place] 2017-08-19 2017-08-20 Outpt Diag nullFlavo [facility] [id number] [place] 18:40:00 04:59:00 Services r Outpatient 12 radha [facility] [place] 2017-08-19 2017-08-20 Outpt Diag nullFlavo [facility] [id number] [place] 18:40:00 04:59:00 Services r Outpatient 12 radha [facility] [employer] [place] 2017-08-19 2017-08-19 Outpatient Collins Le MHOIP MHOIP [id number] 13:40:00 23:59:00 C 12 2017-08-14 2017-08-16 Phone nullFlavo [facility] [id number] [place] 18:53:00 05:59:59 Message r Clinic TM 31 radha [place] 2017-08-14 2017-08-16 Phone nullFlavo [facility] [id number] [place] 18:53:00 05:59:59 Message r Clinic TM 31 radha [place] 2017-08-14 2017-08-15 Outpatient MHMISCHER MHMISCHER [id number] 12:53:00 23:59:59 31 2017-08-07 2017-08-09 Phone nullFlavo [facility] [id number] [place] 14:24:00 05:59:59 Message r Clinic TM 30 radha [place] 2017-08-07 2017-08-09 Phone nullFlavo [facility] [id number] [place] 14:24:00 05:59:59 Message r Clinic TM 30 radha [place] 2017-08-07 2017-08-08 Outpatient MHMISCHER MHMISCHER [id number] 08:24:00 23:59:59 30 2017-08-08 2017-08-08 Ambulatory [facility]Flavo [facility] [id number] [place] 17:00:00 17:00:00 Pre-Reg r Clinic [facility] 11 [place] 2017-08-08 2017-08-08 Ambulatory nullFlavo [facility] [id number] [place] 17:00:00 17:00:00 Pre-Reg r Clinic [facility] 11 radha [place] 2017-08-08 2017-08-08 Outpatient MHIE MHIE [id number] [place] 11:00:00 11:00:00 11 radha [place] 2017-08-08 2017-08-08 Outpatient Collins Le MHMISCHER MHMISCHER [id number] 11:00:00 11:00:00 C 11 2017-07-26 2017-07-28 Phone nullFlavo [facility] [id number] [place] 22:39:00 05:59:59 Message r Clinic TM 29 radha [place] 2017-07-26 2017-07-28 Phone nullFlavo [facility] [id number] [place] 22:39:00 05:59:59 Message r Clinic [facility] 29 radha [place] 2017-07-26 2017-07-27 Outpatient MHGASCH MHMISCHER [id number] 16:39:00 23:59:59 29 2017-07-22 2017-07-24 Phone nullFlavo [facility] [id number] Memoria 23:01:00 05:59:59 Message r Clinic TM 28 radha [place] 2017-07-22 2017-07-24 Phone nullFlavo [facility]NA Spine [id number] Memoria 23:01:00 05:59:59 Message r Clinic [facility] 28 [facility] 2017-07-22 2017-07-23 Outpatient MISCHER MISCHER [id number] 17:01:00 23:59:59 28 2017-07-18 2017-07-19 Outpatient nullFlavo [facility] [id number] Memoria 19:40:00 05:59:59 r Clinic [facility] 28 [facility] 2017-07-18 2017-07-19 Outpatient nullFlavo [facility] [id number] Memoria 19:40:00 05:59:59 r Clinic [facility] 28 [facility] 2017-07-18 2017-07-18 Outpatient Pasha Goldstein [facility] [id number] 13:40:00 23:59:59 duy 28 2017-07-18 2017-07-18 Outpatient MHIE MHIE [id number] Memoria 13:40:00 13:40:00 28 [facility] 2017-07-11 2017-07-13 Phone nullFlavo [facility]NA Spine [id number] Memoria 16:27:00 05:59:59 Message r Clinic [facility] 27 [place]ha [place] 2017-07-11 2017-07-13 Phone nullFlavo [facility] Sp[facility] [id number] Memoria 16:27:00 05:59:59 Message r Clinic [facility] 27 [facility] 2017-07-11 2017-07-12 Outpatient MHMISCHER MHMISCHER [id number] 10:27:00 23:59:59 27 2017-07-11 2017-07-11 Ambulatory nullFlavo [facility] [id number] Memoria 15:40:00 15:40:00 Pre-Reg r Clinic [facility] 27 [facility] 2017-07-11 2017-07-11 Ambulatory nullFlavo [facility] [id number] Memoria 15:40:00 15:40:00 Pre-Reg r Clinic [facility] 27 [facility] 2017-07-11 2017-07-11 Outpatient MHIE MHIE [id number] Memoria 09:40:00 09:40:00 27 [facility] 2017-07-11 2017-07-11 Outpatient Stella, MHMISCHER MHMISCHER [id number] 09:40:00 09:40:00 Viviana Lopez 2017-07-11 2017-07-11 Outpatient Stella, MHMISCHER MHMISCHER [id number] 09:40:00 09:40:00 Viviana Lopez 2017-07-10 2017-07-10 [place] [id number] Memoria 16:00:00 16:00:00 Pre-Reg r Internal 18 [facility] 2017-07-10 2017-07-10 Ambulatory nullFlavo [facility] [id number] Memoria 16:00:00 16:00:00 Pre-Reg r Internal 18 [facility] 2017-07-10 2017-07-10 Outpatient Shiver, MG MG [id number] 10:00:00 10:00:00 Kala Torres 18 2017-07-09 2017-07-10 Outpatient nullFlavo [facility] [id number] Memoria 17:40:00 05:59:59 r Clinic [facility] 26 [facility] 2017-07-09 2017-07-10 Outpatient nullFlavo [facility] Sp[facility] [id number] Memoria 17:40:00 05:59:59 r [facility] 26 [facility] 2017-07-08 2017-07-10 Phone nullFlavo MNA Spine [id number] Memoria 17:26:00 05:59:59 Message r [facility] 26 [facility] 2017-07-08 2017-07-10 Phone nullFlavo [facility]NA Spine [id number] Memoria 17:26:00 05:59:59 Message r Clinic [facility] 26 [facility] 2017-07-09 2017-07-09 Outpatient Pasha Goldstein MISCHER MISCHER [id number] 11:40:00 23:59:59 Aziza 26 2017-07-08 2017-07-09 Outpatient MHMISCHER MHMISCHER [id number] 11:26:00 23:59:59 26 2017-07-09 2017-07-09 Ambulatory nullFlavo [facility] [id number] Memoria 19:40:00 19:40:00 Pre-Reg r Clinic [facility] 24 [facility] 2017-07-09 2017-07-09 Ambulatory nullFlavo [facility] Sp[facility] [id number] Memoria 19:40:00 19:40:00 Pre-Reg r Clinic [facility] 24 [facility] 2017-07-09 2017-07-09 Outpatient MHIE LAITH [id number] Memoria 13:40:00 13:40:00 24 [facility] 2017-07-09 2017-07-09 Outpatient ZULEYMA DouglasGASCHTOVA [facility] [id number] 13:40:00 13:40:00 Viviana 24 Jessica 2017-07-09 2017-07-09 Outpatient MHIE MHIE [id number] Memoria 11:40:00 11:40:00 26 [facility] 2017-07-08 2017-07-08 Ambulatory nullFlavo [facility] [id number] Memoria 19:00:00 19:00:00 Pre-Reg r Clinic [facility] 23 [facility] 2017-07-08 2017-07-08 Ambulatory nullFlavo [facility] [id number] Memoria 19:00:00 19:00:00 Pre-Reg r Clinic [facility] 23 [facility] 2017-07-08 2017-07-08 Ambulatory nullFlavo [facility] Sp[facility] [id number] Memoria 17:40:00 17:40:00 Pre-Reg r Clinic [facility] 25 [facility] 2017-07-08 2017-07-08 Ambulatory nullFlavo [facility] [id number] Memoria 17:40:00 17:40:00 Pre-Reg r Clinic [facility] 25 [facility] 2017-07-08 2017-07-08 Outpatient MHIE MHIE [id number] Memoria 13:00:00 13:00:00 23 [place] 2017-07-08 2017-07-08 Outpatient Stella, MHMISCHER MHMISCHER [id number] 13:00:00 13:00:00 Viviana Lopez 2017-07-08 2017-07-08 Outpatient MHIE MHIE [id number] Memoria 11:40:00 11:40:00 25 [place] 2017-07-08 2017-07-08 Outpatient Stella, MHMISCHER MHMISCHER [id number] 11:40:00 11:40:00 Viviana Lopez 2017-07-03 2017-07-05 Phone nullFlavo MNA [id number] Memoria 17:29:00 05:59:59 Message r Neurosurger 25 l y [facility] 2017-07-03 2017-07-05 Phone nullFlavo MNA [id number] Memoria 17:29:00 05:59:59 Message r Neurosurger 25 l y [facility] 2017-07-03 2017-07-04 Outpatient MHMISCHER MHMISCHER [id number] 11:29:00 23:59:59 25 2017-07-04 2017-07-04 Ambulatory nullFlavo [facility] [id number] Memoria 20:20:00 20:20:00 Pre-Reg r Clinic [facility] 21 [place] 2017-07-04 2017-07-04 Ambulatory nullFlavo [facility] Sp[facility] [id number] Memoria 20:20:00 20:20:00 Pre-Reg r Clinic [facility] 21 [place] 2017-07-04 2017-07-04 Outpatient MHIE MHIE [id number] Memoria 14:20:00 14:20:00 21 [facility] 2017-07-04 2017-07-04 Outpatient Stella, MHMISCHER MHMISCHER [id number] 14:20:00 14:20:00 Viviana Lopez 2017-07-03 2017-07-03 Outpatient MHIE MHIE [id number] Memoria 14:20:00 14:20:00 22 [place] 2017-07-03 2017-07-03 Outpatient MHIE MHIE [id number] Memoria 14:20:00 14:20:00 22 [facility] 2017-06-18 2017-06-19 Outpatient nullFlavo [facility] Sp[facility] [id number] Memoria 20:20:00 05:59:59 r Clinic TM 20 [facility] 2017-06-18 2017-06-19 Outpatient nullFlavo [facility] [id number] Memoria 20:20:00 05:59:59 r Clinic [facility] 20 [facility] 2017-06-18 2017-06-18 Outpatient Pasha Goldstein MISCHER MISCHER [id number] 14:20:00 23:59:59 [facility] 20 2017-06-18 2017-06-18 Outpatient Pasha Goldstein MISCHER MISCHER [id number] 14:20:00 23:59:59 an 20 2017-06-18 2017-06-18 Outpatient MHIE MHIE [id number] Memoria 14:20:00 14:20:00 20 [facility] 2017-06-12 2017-06-14 Phone nullFlavo [facility] Sp[facility] [id number] Memoria 17:41:00 05:59:59 Message r Clinic [facility] 24 [facility] 2017-06-12 2017-06-14 Phone nullFlavo [facility] Spine [id number] Memoria 17:41:00 05:59:59 Message r Clinic [facility] 24 [facility] 2017-06-12 2017-06-13 Outpatient MHMISCHER MHMISCHER [id number] 11:41:00 23:59:59 24 2017-06-13 2017-06-13 Ambulatory nullFlavo [facility] [id number] Memoria 20:20:00 20:20:00 Pre-Reg r Clinic [facility] 19 [facility] 2017-06-13 2017-06-13 Ambulatory nullFlavo [facility] Sp[facility] [id number] Memoria 20:20:00 20:20:00 Pre-Reg r Clinic [facility] 19 [facility] 2017-06-13 2017-06-13 Outpatient MHIE MHIE [id number] Memoria 14:20:00 14:20:00 19 [facility] 2017-06-13 2017-06-13 Outpatient ZULEYMA DouglasMISCHER MISCHER [id number] 14:20:00 14:20:00 Viviana 19 Jessica 2017-06-12 2017-06-12 Ambulatory nullFlavo [facility] [id number] Memoria 16:20:00 16:20:00 Pre-Reg r Clinic TM 15 [facility] 2017-06-12 2017-06-12 Ambulatory nullFlavo [facility] [id number] Memoria 16:20:00 16:20:00 Pre-Reg r Clinic [facility] 15 [facility] 2017-06-12 2017-06-12 Outpatient MHIE ZULEYMAIE [id number] Memoria 10:20:00 10:20:00 15 [facility] 2017-06-12 2017-06-12 Outpatient Stella [facility] [id number] 10:20:00 10:20:00 Viviana 15 Jessica 2017-06-11 2017-06-11 Ambulatory nullFlavo [facility] [id number] Memoria 20:00:00 20:00:00 Pre-Reg r Clinic [facility] 16 [facility] 2017-06-11 2017-06-11 Ambulatory nullFlavo [facility] [id number] Memoria 20:00:00 20:00:00 Pre-Reg r Clinic [facility] 16 [facility] 2017-06-11 2017-06-11 Outpatient MHIE ZULEYMAIE [id number] Memoria 14:00:00 14:00:00 16 [facility] 2017-06-11 2017-06-11 Outpatient Stella [facility] [id number] 14:00:00 14:00:00 Vivianaindira Lopez 2017-06-06 2017-06-07 Outpatient nullFlavo [facility] [id number] Memoria 19:30:00 05:59:59 r Clinic [facility] 17 [facility] 2017-06-06 2017-06-07 Outpatient nullFlavo [facility] [id number] Memoria 19:30:00 05:59:59 r Clinic [facility] 17 [facility] 2017-06-06 2017-06-06 Outpatient Pasha Goldstein [facility] [id number] 13:30:00 23:59:59 Aziza 17 2017-06-06 2017-06-06 Outpatient MHIE MHIE [id number] Memoria 13:30:00 13:30:00 17 [facility] 2017-05-29 2017-05-30 Outpatient nullFlavo [facility] [id number] Memoria 19:20:00 05:59:59 r Clinic TM 14 [facility] 2017-05-29 2017-05-30 Outpatient nullFlavo [facility] [id number] Memoria 19:20:00 05:59:59 r Clinic TM 14 [facility] 2017-05-28 2017-05-30 Phone nullFlavo [facility] Sp[facility] [id number] Memoria 17:01:00 05:59:59 Message r Clinic TM 23 [facility] 2017-05-28 2017-05-30 Phone nullFlavo [facility] Spine [id number] Memoria 17:01:00 05:59:59 Message r Clinic TM 23 [facility] 2017-05-29 2017-05-29 Outpatient Pasha Goldstein MHMISCHER MHMISCHER [id number] 13:20:00 23:59:59 Aziza 14 2017-05-28 2017-05-29 Outpatient MHMISCHER MHMISCHER [id number] 11:01:00 23:59:59 23 2017-05-29 2017-05-29 Outpatient MHIE MHIE [id number] Memoria 13:20:00 13:20:00 14 [facility] 2017-05-23 2017-05-25 Phone nullFlavo [facility] Spine [id number] Memoria 20:54:00 05:59:59 Message r Clinic [facility] 22 [facility] 2017-05-23 2017-05-25 Phone nullFlavo [facility] Spine [id number] Memoria 20:54:00 05:59:59 Message r Clinic [facility] 22 [facility] 2017-05-23 2017-05-24 Outpatient MHMISCHER MHMISCHER [id number] 14:54:00 23:59:59 22 2017-05-21 2017-05-22 Outpatient nullFlavo [facility] [id number] Memoria 17:20:00 05:59:59 r Clinic [facility] 13 [facility] 2017-05-21 2017-05-22 Outpatient nullFlavo [facility] [id number] Memoria 17:20:00 05:59:59 r Clinic [facility] 13 [facility] 2017-05-21 2017-05-21 Outpatient Pasha Goldstein MISCHER MHMISCHER [id number] 11:20:00 23:59:59 Aziza 13 2017-05-21 2017-05-21 Outpatient MHIE IE [id number] Memoria 11:20:00 11:20:00 13 [facility] 2017-05-20 2017-05-21 Outpatient nullFlavo [facility] [id number] Memoria 20:00:00 05:59:59 r [facility] 12 [facility] 2017-05-20 2017-05-21 Outpatient nullFlavo [facility] Sp[facility] [id number] Memoria 20:00:00 05:59:59 r [facility] 12 [facility] 2017-05-20 2017-05-20 [facility] [id number] 14:00:00 23:59:59 [place] [address] 2017-05-20 2017-05-20 Outpatient MHIE MHIE [id number] Memoria 14:00:00 14:00:00 12 [facility] 2017-05-14 2017-05-15 Outpatient nullFlavo [facility] [id number] Memoria 21:03:00 05:59:00 r Outpatient 10 [facility] 2017-05-14 2017-05-15 Outpatient nullFlavo [facility] [id number] Memoria 21:03:00 05:59:00 r Outpatient 10 [facility] 2017-05-14 2017-05-15 Outpt Diag nullFlavo [facility] [id number] Memoria 18:22:00 05:59:00 Services r Outpatient 11 [facility] 2017-05-14 2017-05-15 Outpt Diag nullFlavo [facility] [id number] Memoria 18:22:00 05:59:00 Services r Outpatient 11 [facility] 2017-05-14 2017-05-14 Outpatient Collins Le 2.16.840. 2.16.840. 1. [id number] 15:03:00 23:59:00 C [id number] 3.615.30 5.2017-05-14 2017-05-14 Outpatient ReyCollins macias 2.16.840. 2.16.840. 1. [id number] 12:22:00 23:59:00 C [id number] 11 3.615.30 5.30 2017-04-29 2017-04-30 Outpatient nullFlavo [facility] [id number] Memoria 15:00:00 05:59:59 r Clinic TM 10 [facility] 2017-04-29 2017-04-30 Outpatient nullFlavo [facility] [id number] Memoria 15:00:00 05:59:59 r Clinic [facility] 10 [facility] 2017-04-29 2017-04-29 Outpatient Collins Le MISCHER MISCHER [id number] 09:00:00 23:59:59 C 10 2017-04-29 2017-04-29 Outpatient MHIE MHIE [id number] Memoria 09:00:00 09:00:00 10 [facility] 2017-04-26 2017-04-27 Outpatient nullFlavo [facility] [id number] Memoria 16:15:00 05:59:59 r Clinic [facility] 09 [facility] 2017-04-26 2017-04-27 Outpatient nullFlavo [facility] [id number] Memoria 16:15:00 05:59:59 r Clinic [facility] 09 [facility] 2017-04-26 2017-04-26 Outpatient Pasha Goldstein [facility] [id number] 10:15:00 23:59:59 an 2017-04-26 2017-04-26 Outpatient MHIE MHIE [id number] Memoria 10:15:00 10:15:00 09 radha Vince 2017-04-06 2017-04-07 Outpt Diag nullFlavo [facility] [id number] Memoria 16:12:00 04:59:00 Services r Outpatient 09 [place] [facility] [place] 2017-04-06 2017-04-07 Outpt Diag nullFlavo [facility] [id number] Memoria 16:12:00 04:59:00 Services r Outpatient 09 l Imaging [facility] 2017-04-06 2017-04-06 Outpatient Angelita [facility] [id number] 11:12:00 23:59:00 Hwan 2017-01-30 2017-01-30 Outpatient MHIE MHIE [id number] Memoria 10:45:00 10:45:00 08 [facility] 2017-01-30 2017-01-30 Outpatient MHIE MHIE [id number] Memoria 10:45:00 10:45:00 08 [facility] 2016-11-07 2016-11-07 Outpatient MHIE MHIE [id number] Memoria 10:45:00 10:45:00 07 [facility] 2016-11-07 2016-11-07 Outpatient MHIE MHIE [id number] Memoria 10:45:00 10:45:00 07 [facility] 2016-08-27 2016-08-27 Outpatient MHIE MHIE [id number] Memoria 11:00:00 11:00:00 06 [facility] 2016-08-27 2016-08-27 Outpatient MHIE MHIE [id number] Memoria 11:00:00 11:00:00 06 [facility] 2016-08-14 2016-08-15 Day nullFlavo [facility] [id number] Memoria 13:00:00 05:59:00 Surgery r [place] 04 [facility] 2016-08-14 2016-08-15 Day nullFlavo [facility] [id number] Memoria 13:00:00 05:59:00 Surgery r [place] 04 [facility] 2016-08-14 2016-08-14 Outpatient Pasha Goldstein [facility] [id number] 07:00:00 23:59:00 [place] [id number] 2016-08-14 2016-08-14 Outpatient MHIE MHIE [id number] Memoria 10:00:00 10:00:00 05 [facility] 2016-08-14 2016-08-14 Outpatient MHIE MHIE [id number] Memoria 10:00:00 10:00:00 05 [facility] 2016-08-06 2016-08-06 Outpatient MHIE MHIE [id number] Memoria 11:15:00 11:15:00 04 [facility] 2016-08-06 2016-08-06 Outpatient MHIE MHIE [id number] Memoria 11:15:00 11:15:00 04 [facility] 2016-07-28 2016-07-29 Outpt Diag nullFlavo [facility] [id number] Memoria 21:58:00 05:59:00 Services r [facility] 08 [facility] 2016-07-28 2016-07-29 Outpt Diag nullFlavo [facility] [id number] Memoria 21:58:00 05:59:00 Services r Outpatient 08 [facility] 2016-07-28 2016-07-28 Outpatient Lesley Chiang.16.840. 2.16.840.1. [id number] 15:58:00 23:59:00 Kan Arora [id number] 3.615.30 5.30 2016-04-23 2016-04-23 Outpatient MHIE MHIE [id number] Memoria 12:45:00 12:45:00 03 [facility] 2016-04-23 2016-04-23 Outpatient MHIE MHIE [id number] Memoria 12:45:00 12:45:00 03 [facility] 2016-02-29 2016-02-29 Outpatient MHIE MHIE [id number] Memoria 11:45:00 11:45:00 02 [facility] 2016-02-29 2016-02-29 Outpatient MHIE MHIE [id number] Memoria 11:45:00 11:45:00 02 [facility] 2016 2016-02-15 Inpatient [facility] [id number] Memoria 11:02:00 16:15:00 r [place] 03 [facility] 2016 2016-02-15 Inpatient [place] [id number] Memoria 11:02:00 16:15:00 [facility] 03 [facility] 2016 2016-02-15 Outpatient Pasha Goldstein [facility] [id number] 06:02:00 11:15:00 [place] [address] 2016 2016 Outpatient MHIE IE [id number] Memoria 08:00:00 08:00:00 01 [facility] 2016 2016 Outpatient MHIE MHIE [id number] Memoria 08:00:00 08:00:00 01 [facility] 2015-05-10 2015-05-11 Outpt Diag nullFlavo [facility] [id number] Memoria 20:29:00 05:59:00 Services r Outpatient 06 [facility] 2015-05-10 2015-05-11 Outpt Diag nullFlavo [facility] [id number] Memoria 20:29:00 05:59:00 Services r Outpatient 06 l Alcon Keith 2015-05-10 2015-05-10 [facility] [id number] 14:29:00 23:59:00 Yvette Jer Darci 2014-11-08 2014-11-09 Outpt Diag nullFlavo [facility] [id number] Memoria 12:35:00 04:59:00 Services r Outpatient 05 l Imaging Vince Clarke 2014-11-08 2014-11-09 Outpt Diag nullFlavo [facility] [id number] Memoria 12:35:00 04:59:00 Services r Outpatient 05 l Alcon Clarke 2014-11-08 2014-11-08 Outpatient Héctor, 2.16.840. 2.16.840.1. 3 [id number] 07:35:00 23:59:00 Yvette Rodriguez.[id number]. [id number] 05 Darci 3.615.0.1 5.0.409 10 9131-05-20 2014-10-28 Outpt Diag nullFlavo [facility] [id number] Memoria 19:17:00 04:59:00 Services r Outpatient 04 l Imaging Vince Clarke 2014-10-27 2014-10-28 Outpt Diag nullFlavo [facility] [id number] Memoria 19:17:00 04:59:00 Services r Outpatient 04 l Alcno Clarke 2014-10-27 2014-10-27 Outpatient Héctor, 2.16.840. 2.16.840.1. 3 [id number] 14:17:00 23:59:00 Yvette Rodriguez.[id number]. [id number] [place] [address] 3.615.0.1 5.0.947 01 7713-07-16 2013-12-24 Outpt Diag nullFlavo [facility] [id number] Memoria 19:21:00 04:59:00 Services r Outpatient 03 l Imaging Vince Clarke 2013-12-23 2013-12-24 Outpt Diag nullFlavo [facility] [id number] Memoria 19:21:00 04:59:00 Services r Outpatient 03 l Imaging Vince Clarke 2013-12-23 2013-12-23 Outpatient Héctor, 2.16.840. 2.16.840.1. 3 [id number] 14:21:00 23:59:00 Yvette [id number]. [id number] 03 Darci 3.615.0.1 5.0.375 53 1911-07-01 2013-12-09 Outpt Diag nullFlavo [facility] [id number] Memoria 19:11:00 04:59:00 Services r Outpatient 02 [facility] 2013-12-08 2013-12-09 Outpt Diag nullFlavo [facility] [id number] Memoria 19:11:00 04:59:00 Services r Outpatient 02 [facility] 2013-12-08 2013-12-08 Outpatient Héctor, 2.16.840. 2.16.840.1. 3 [id number] 14:11:00 23:59:00 Yvette [id number]. [id number] 02 Darci 3.615.0.1 5.0.771 84 7535-01-30 2013-07-09 Outpatient 2.16.840. 2.16.840.1. 3 [id number] [facility] 11:35:00 23:59:00 [id number]. [id number] Outpati 3.615.0.1 5.0.100 ent 00 [facility] 2012-12-02 2012-12-02 CAMRYN nullFlavo [facility] [id number] Memoria 09:55:00 12:45:00 [facility] 2012-12-02 2012-12-02 CAMRYN nullFlavo [place] [id number] Memoria 09:55:00 12:45:00 [facility] 2011-08-30 2011-08-31 Inpatient nullFlavo [facility] [id number] Memoria 08:06:00 21:30:00 [facility] 2011-08-30 2011-08-31 Inpatient nullFlavo [facility] [id number] Memoria 08:06:00 21:30:00 [facility] 2011-06-12 2011-06-12 CAMRYN nullFlavo [facility] [id number] Memoria 09:44:00 11:55:00 [facility] 2011-06-12 2011-06-12 CAMRYN nullFlavo [facility] [id number] Memoria 09:44:00 11:55:00 [place] 00 l Vince Results Test Description Test Time Test Comments Results Result Comments Source CHEMISTRY 2022-08-01 11:46:00 Test Item Value Reference Range Interpretation Comme nts Magnesium Lvl (test code = Magnesium Lvl) 2.2 1.8-2.4 [facility]AXHIVDTHV2747-25-81 11:46:00 Test Item Value Reference Range Interpretation Comments Phosphorus (test code = Phosphorus) 3.6 2.5-4.5 [facility]inteElxbfhbJDROXAQVT0998-53-75 11:46:00 Test Item Value Reference Range Interpretation Comments Glucose Lvl (test code = Glucose Lvl) 119 70-99 [facility] PointeVdxzrxyXRZEBXOIU7374-06-28 11:46:00 Test Item Value Reference Range Interpretation Comments BUN (test code = BUN) 24 7-22 [facility] PointeCutqdjcZYJDZTGNH0812-76-02 11:46:00 Test Item Value Reference Range Interpretation Comments Creatinine Lvl (test code = Creatinine 0.40 0.50-1.40 Lvl) [facility] PointeOhmdahvDJOUWFZXZ6378-07-76 11:46:00 Test Item Value Reference Range Interpretation Comments Sodium Lvl (test code = Sodium Lvl) 136 135-145 [facility] PointeUpdpaexTTJFGOTKS8700-76-85 11:46:00 Test Item Value Reference Range Interpretation Comments Potassium Lvl (test code = Potassium 4.4 3.5-5.1 Lvl) [facility] PointeGzcojfqUUJHLWWPS9720-75-05 11:46:00 Test Item Value Reference Range Interpretation Comments Chloride Lvl (test code = Chloride Lvl) 103 95-109 [facility] PointeAakfnlpOEXSAMWFS7559-76-92 11:46:00 Test Item Value Reference Range Interpretation Comments CO2 (test code = CO2) 26 24-32 [facility] PointeKhcmpfmYUTLIYWSR5991-85-17 11:46:00 Test Item Value Reference Range Interpretation Comments Calcium Lvl (test code = Calcium Lvl) 8.4 8.5-10.5 [facility] PointeXtcwbslDZXHPXJQN4466-43-34 11:46:00 Test Item Value Reference Range Interpretation Comments Total Protein (test code = Total 5.6 6.4-8.4 Protein) [facility] PointeApjsitiOKDCTTZRB8592-46-78 11:46:00 Test Item Value Reference Range Interpretation Comments Albumin Lvl (test code = Albumin Lvl) 2.6 3.5-5.0 [facility] [id number] 11:46:00 Test Item Value Reference Range Interpretation Comments ALT (test code = ALT) 29 See_Comment [Auto mated message] The system which ge nerated this result transmit lupe reference range : <=65. The reference range was not used to interpr et this result as mercedes l/abnormal. NDSSI HoldingsGrcpotgWGYFHINJP3027-26-21 11:46:00 Test Item Value Reference Range Interpretation Comments AST (test code = AST) 34 See_Comment [Auto mated message] The system which ge nerated this result transmit lupe reference range : <=37. The reference range was not used to interpr et this result as mercedes l/abnormal. NDSSI HoldingsSclyhbcEUMYJEJXB8915-11-29 11:46:00 Test Item Value Reference Range Interpretation Comments Alk Phos (test code = Alk Phos) 174 39-136 [facility] YehxklhECJQYKTSQ2176-80-43 11:46:00 Test Item Value Reference Range Interpretation Comments Bili Total (test code = Bili Total) 0.5 0.2-1.3 [facility] HekoggoUGWUFYABO6898-15-24 11:46:00 Test Item Value Reference Range Interpretation Comments AGAP (test code = AGAP) 11.4 10.0-20.0 [facility] NehjrtgNIKAWXPRO6956-51-61 11:46:00 Test Item Value Reference Range Interpretation Comments B/C Ratio (test code = B/C Ratio) 60 1 6-25 [facility] DjqaftlEAZSHVCPV5585-75-91 11:46:00 Test Item Value Reference Range Interpretation Comments Globulin (test code = Globulin) 3.0 2.7-4.2 [facility] PrzczjhEUACADIZC3459-23-35 11:46:00 Test Item Value Reference Range Interpretation Comments A/G Ratio (test code = A/G Ratio) 0.9 1 0.7-1.6 [facility] YtgbdtrJKAXESFPZ9558-08-67 11:46:00 Test Item Value Reference Range Interpretation Comments eGFR (test code = eGFR) 112 [facility] JdhkzyqCRBHJBJZWB0015-52-75 11:46:00 Test Item Value Reference Range Interpretation Comments WBC (test code = WBC) 7.6 3.7-10.4 [place] 799773-02-22 11:46:00 Test Item Value Reference Range Interpretation Comments RBC (test code = RBC) 3.30 4.20-5.40 [place] 799773-02-22 11:46:00 Test Item Value Reference Range Interpretation Comments Hgb (test code = Hgb) 9.8 12.0-16.0 [place] 799773-02-22 11:46:00 Test Item Value Reference Range Interpretation Comments Hct (test code = Hct) 29.2 36.0-48.0 [place] 799773-02-22 11:46:00 Test Item Value Reference Range Interpretation Comments MCV (test code = MCV) 88.4 80.0-98.0 [place] 799773-02-22 11:46:00 Test Item Value Reference Range Interpretation Comments MCH (test code = MCH) 29.7 pg 27.0-31.0 [place] 799773-02-22 11:46:00 Test Item Value Reference Range Interpretation Comments MCHC (test code = MCHC) 33.6 32.0-36.0 [facility] SouthChbntrwPRFKVPJVKK7118-11-24 11:46:00 Test Item Value Reference Range Interpretation Comments RDW (test code = RDW) 15.7 11.5-14.5 [facility] SouthZrnvrccRRVEMXLYHX3510-18-49 11:46:00 Test Item Value Reference Range Interpretation Comments Platelet (test code = Platelet) 248 133-450 [facility] SouthBolkgstPDAJTSQTIJ4709-10-99 11:46:00 Test Item Value Reference Range Interpretation Comments MPV (test code = MPV) 8.2 7.4-10.4 [place] 799773-02-22 11:46:00 Test Item Value Reference Range Interpretation Comments Segs (test code = Segs) 75.1 45.0-75.0 [place] [address]-02-22 11:46:00 Test Item Value Reference Range Interpretation Comments Lymphocytes (test code = Lymphocytes) 12.0 20.0-40.0 [place] 799773-02-22 11:46:00 Test Item Value Reference Range Interpretation Comments Monocytes (test code = Monocytes) 9.6 2.0-12.0 [place] 799773-02-22 11:46:00 Test Item Value Reference Range Interpretation Comments Eosinophils (test code = 2.5 See_Comment [A utomated message] The Eosinophils) system which ge nerated this result tra nsmitted reference range : <=4.0. The reference r patricio was not used to int erpret this result as normal/abnormal . [facility] SouthMuitgruTMRDQZHJGG1094-70-75 11:46:00 Test Item Value Reference Range Interpretation Comments Basophils (test code = 0.8 See_Comment [Aut omated message] The Basophils) system which ge nerated this result tra nsmitted reference range : <=1.0. The reference r patricio was not used to int erpret this result as normal/abnormal . [facility] SouthAzhppayHKUMVIPPUE8069-27-30 11:46:00 Test Item Value Reference Range Interpretation Comments Neutrophils # (test code = Neutrophils 5.7 1.5-8.1 #) [facility] SouthYhapeclQWFIYXMLHS6497-09-02 11:46:00 Test Item Value Reference Range Interpretation Comments Lymphocytes # (test code = Lymphocytes 0.9 1.0-5.5 #) [facility] SouthXvvsdmeYEMZNRAVUA8292-10-67 11:46:00 Test Item Value Reference Range Interpretation Comments Monocytes # (test code 0.7 See_Comment [Aut omated message] The = Monocytes #) system which generated this result tra nsmitted reference range : <=0.8. The reference r patricio was not used to int erpret this result as normal/abnormal . [facility] SouthBnimyrvWQOBZZEYDJ5363-98-56 11:46:00 Test Item Value Reference Range Interpretation Comments Eosinophils # (test code 0.2 See_Comment [A utomated message] The = Eosinophils #) system whic h generated this result tra nsmitted reference range : <=0.5. The reference r patricio was not used to int erpret this result as normal/abnormal . [facility] SouthWdhsdohFEMYUBBYRZ4518-12-60 11:46:00 Test Item Value Reference Range Interpretation Comments Basophils # (test code 0.1 See_Comment [Aut omated message] The = Basophils #) system which generated this result tra nsmitted reference range : <=0.2. The reference r patricio was not used to int erpret this result as normal/abnormal . [facility]inteYrmvrtrUCSQNKCVY5886-17-63 00:13:00 Test Item Value Reference Range Interpretation Comments Trig (test code = Trig) 112 [facility] CampusDinaeniHRGBBG2415-28-71 07:04:35 Test Item Value Reference Range Interpretation Comments RADRPT (test code = PROCEDURE INFORMATION: RADRPT) Exam: XR Chest Exam date and time: 07/28/2022 1:16 AM Age: 62 years old Clinical indication: /s/p picc line placement rue TECHNIQUE: Imaging protocol: Radiologic exam of the chest. Views: 1 view. COMPARISON: CHEST 1VIEW DX 07/22/2022 12:29 PM FINDINGS: Tubes, catheters and devices: Right peripherally inserted central venous catheter tip projects over the cavoatrial junction. Lungs: No focal consolidation. Pleural spaces: Unremarkable. No pleural effusion. No pneumothorax. Heart/Mediastinum: No cardiomegaly. Bones/joints: Unchanged. IMPRESSION: Right peripherally inserted central venous catheter tip projects over the cavoatrial junction. Phu Ceja MD On 07/28/2022 01:03:17; [id number] [facility]2023-02-16 13:30:00 Test Item Value Reference Range Interpretation Comments Glucose POC (test code = Glucose POC) 136 70-99 [place] [id number] 20:31:34 Test Item Value Reference Range Interpretation Comments RADRPT (test code PROCEDURE INFORMATION: = RADRPT) Exam: FL Swallowing Function with Cine or Video Exam date and time: 07/24/2022 1:03 PM Age: 62 years old Clinical indication: /objective evaluation of swallow; Acute dysphagia following sci TECHNIQUE: Imaging protocol: Swallowing function, with cineradiography/ videoradiograph. Guided with fluoroscopy. Exam supervised by facility personnel. Dynamic fluoroscopy assessment of the swallowing function was performed by the Speech Pathologist. The Radiologist WAS present in the room and performed the fluoroscopy portion of the study. Oral contrast of multiple consistencies (thin, extremely thick, regular and high sensory bolus) were administered using a spoon and cup.COMPARISON: SPINE CERVICAL WO CONTRAST CT 07/22/2022 12:37 PM RADIATION DOSE METRICS: Fluoroscopy time (seconds): seconds= 192 Number of fluoro spot images: images= [id number] Reference air kerma (SILVESTRE): 7.54 mGy FINDINGS: Assistants: None. Manager University: Anteroposterior cervical fusion. Procedure summary: No contrast penetration or aspiration were noted during initial administration of thin consistency contrast with spoon or cup. No penetration or aspiration of extremely thick consistency was noted. Subsequently, thin contrast wash was administered a cup sip volumes resulting in flash contrast penetration. Further administration of regular consistency contrast resulted in trickle silent aspiration of pre-existing residue without aspiration of the primary bolus.A single episode of deep contrast penetration was noted using high sensory bolus consistency at cup sip volumes without aspiration. A final administration of high sensory bolus consistency at spoon full volumes the no-show contrast penetration or aspiration. Low to moderate volume vallecular residue was noted, particularly with thicker consistencies, partially cleared after additional dry swallows and administration of thin contrast wash. IMPRESSION:1. Single episode of trickle silent residue aspiration during administration of regular consistency. No penetration or aspiration of the primary bolus was noted.2. Flash penetration of thin contrast wash with a cup and deep penetration of high sensory bolus consistency at cup sip volumes.3. No penetration or aspiration noted with other consistencies.4. Low to moderate volume vallecular residue, partially cleared after additional dry swallows and thin contrast wash administration.Please refer to the final Speech Pathology report for a complete description.Tanner Lee MD On 07/24/2022 14:30:21; [id number] [facility] HospitalLtaomdqHSHVKD5693-25-61 15:51:23 Test Item Value Reference Range Interpretation Comments RADRPT (test code PROCEDURE INFORMATION: = RADRPT) Exam: US Retroperitoneal; Complete; Kidneys and Bladder Exam date and time: 07/23/2022 5:14 PM Age: 62 years old Clinical indication: /recent urinary leakage , rule out patholoy of kidney TECHNIQUE: Imaging protocol: Real-time ultrasound of the retroperitoneum with image documentation. Complete exam focused on the kidneys and bladder. COMPARISON: ABDOMEN AP DX 07/22/2022 12:29 PM FINDINGS: Pleural space: Small bilateral pleural effusions. Right kidney: The right kidney measures 9.5 X 4.0 X 3.4 cm. Renal cortical thickness measures 1.2 cm. Right renal stone measures up to 3.5 mm. No hydronephrosis.The renal corticomedullary differentiation is maintained. Left kidney: The left kidney measures 8.7 X 4.5 X 5.2 cm. No stones. No hydronephrosis.The renal corticomedullary differentiation is maintained. Aorta: Normal aortic caliber. The bilateral common iliac arteries are obscured. Inferior vena cava: IVC visualized. Urinary bladder: Bladder volume measures 381 cc. IMPRESSION: 1. Right nephrolithiasis. 2. Small bilateral pleural effusions. Shravan Perez MD On 07/24/2022 09:50:04; [id number] [facility] HospitalUznqceqXJREDY4163-89-61 19:12:01 Test Item Value Reference Range Interpretation Comments RADRPT (test code Radiation Dose CTDIVOL = = RADRPT) 11.36 (mGy): DLP = 247.72 (mGy-cm)PROCEDURE INFORMATION: Exam: CT Lumbar Spine Without Contrast Exam date and time: 07/22/2022 12:50 PM Age: 62 years old Clinical indication: /see comment TECHNIQUE: Imaging protocol: Computed tomography of the lumbar spine without contrast. Radiation optimization: All CT scans at this facility use at least one of these dose optimization techniques: automated exposure control; mA and/or kV adjustment per patient size (includes targeted exams where dose is matched to clinical indication); or iterative reconstruction. Other protocol: This patient has received 4 known CTs and 0 known cardiac nuclear medicine studies in the 12 months prior to the current study. COMPARISON: SPINE LUMBAR W CONTRAST CT 08/02/2021 10:23 AM RADIATION DOSE METRICS: CTDI volume (mGy): 11.36 Total DLP (mGy-cm): 247.72 FINDINGS: Bones/joints: Surgical changes with posterior fusion hardware extending from the bilateral iliac bones cranially into the thoracic spine. Laminectomy changes at L1. Unchanged 5 mm anterolisthesis of L4 over L5. There is 6 mm retrolisthesis of T12 over L1- new from CT dated 08/02/2021 with slight progression sclerotic endplate changes at T12-L1. Streak artifact from the hardware limits evaluation. No perihardware lucency to suggest hardware loosening. Vertebral body heights are maintained. T12-L1: Disc uncovering and bulge related to retrolisthesis. Spinal canal is decompressed. Severe bilateral foraminal stenosis. L1-L2: No disc herniation identified. No significant spinal canal stenosis. Mild bilateral foraminal stenosis. L2-L3: No disc herniation identified. No significant spinal canal stenosis. Moderate bilateral foraminal stenosis. L3-L4: Disc bulge. Spinal canal is poorly evaluated. Mild bilateral foraminal stenosis. L4-L5: Disc uncovering and bulge related to anterolisthesis. Spinal canal is poorly evaluated. Moderate right and mild left foraminal stenosis. L5-S1: Disc bulge. Spinal canal is poorly evaluated. Mild bilateral foraminal stenosis. Pleural spaces: Partially imaged bilateral pleural effusions. Gallbladder and bile ducts: Status post cholecystectomy. Soft tissues: Nonspecific scarring and ill-defined fluid density with scattered areas of calcification in the posterior paraspinous soft tissues - poorly evaluated due to streak artifact. Other findings: Surgical changes in the stomach noting a small hiatal hernia. IMPRESSION: Surgical changes with posterior fusion hardware extending from the bilateral iliac bones cranially into the thoracic spine. Background multilevel degenerative changes of the spine, as described, noting new 6 mm retrolisthesis of T12 over L1 with severe bilateral foraminal narrowing at T12-L1.Bulmaro Moncada MD On 07/23/2022 13:10:51; [id number] [facility]AllenVyqhzxaISSLKA6105-23-36 18:56:58 Test Item Value Reference Range Interpretation Comments RADRPT (test code = Radiation Dose CTDIVOL = RADRPT) 26.74 (mGy): DLP = 900.02 (mGy-cm)PROCEDURE INFORMATION: Exam: CT Thoracic Spine Without Contrast Exam date and time: 07/22/2022 12:43 PM Age: 62 years old Clinical indication: /see comment TECHNIQUE: Imaging protocol: Computed tomography of the thoracic spine without contrast. Radiation optimization: All CT scans at this facility use at least one of these dose optimization techniques: automated exposure control; mA and/or kV adjustment per patient size (includes targeted exams where dose is matched to clinical indication); or iterative reconstruction. Other protocol: This patient has received 4 known CTs and 0 known cardiac nuclear medicine studies in the 12 months prior to the current study. COMPARISON: SPINE THORACIC W CONTRAST CT 08/02/2021 10:23 AM RADIATION DOSE METRICS: CTDI volume (mGy): 26.74 Total DLP (mGy-cm): 900.02 FINDINGS: Bones/joints: Surgical changes with posterior fusion hardware throughout the thoracic spine extending both cranially into the cervical spine and caudally into the lumbar spine. Laminectomy changes at T3 and L1. Streak artifact from the hardware limits evaluation. No perihardware lucency to suggest loosening loosening. There is 6 mm retrolisthesis of T12 over L1- new from CT dated 08/02/2021 with progression sclerotic endplate changes at T12-L1. Otherwise, anatomic alignment including anatomic alignment at T2-T3 with surgical changes related to resection of the medial 3rd rib bilaterally. Background degenerative changes in the thoracic spine including facet hypertrophy contributing to mild to moderate foraminal stenoses. No significant spinal canal stenosis in the thoracic spine. Heart: Borderline cardiomegaly. Coronary artery calcifications. Pleural spaces: Moderate left and small right pleural effusions with associated dependent atelectasis. Soft tissues: Nonspecific scarring and ill-defined fluid density with scattered areas of calcification in the posterior paraspinous soft tissues - poorly evaluated due to streak artifact. Other findings: Partially imaged surgical changes in the stomach noting a hiatal hernia. IMPRESSION: 1. Surgical changes with posterior fusion hardware throughout the thoracic spine. New 6 mm retrolisthesis of T12 over L1 with progression sclerotic endplate changes at T12-L1. 2. Moderate left and small right pleural effusions with associated dependent atelectasis. Bulmaro Moncada MD On 07/23/2022 12:55:43; [id number] [facility] HospitalHtaysruVVXHPM4144-88-92 18:37:00 Test Item Value Reference Range Interpretation Comments RADRPT (test code = Radiation Dose CTDIVOL = RADRPT) 26.74 (mGy): DLP = 786.38 (mGy-cm)PROCEDURE INFORMATION: Exam: CT Cervical Spine Without Contrast Exam date and time: 07/22/2022 12:37 PM Age: 62 years old Clinical indication: /see comment TECHNIQUE: Imaging protocol: Computed tomography of the cervical spine without contrast. Radiation optimization: All CT scans at this facility use at least one of these dose optimization techniques: automated exposure control; mA and/or kV adjustment per patient size (includes targeted exams where dose is matched to clinical indication); or iterative reconstruction. Other protocol: This patient has received 4 known CTs and 0 known cardiac nuclear medicine studies in the 12 months prior to the current study. COMPARISON: SPINE THORACIC W CONTRAST CT 08/02/2021 10:23 AM RADIATION DOSE METRICS: CTDI volume (mGy): 26.74 Total DLP (mGy-cm): 786.38 FINDINGS: Bones/joints: Surgical changes with posterior fusion hardware extending from C2 caudally into the thoracic spine out of the vsayv-ya-mywe. Laminectomy changes C4 -6 and at T3. Anterior cervical discectomy and fusion at C5-C6. Streak artifact from the hardware limits evaluation. No evidence of hardware complication. Anatomic alignment. Vertebral body heights are maintained. Surgical changes related to resection the medial 3rd ribs bilaterally. No acute fracture. C2-C3: No disc herniation. No significant spinal canal or neural foraminal stenosis. C3-C4: Disc bulge and bilateral uncovertebral hypertrophy. Mild spinal canal stenosis. Mild bilateral foraminal stenosis. C4-C5: No disc herniation. Bilateral facet hypertrophy. Spinal canal is decompressed. Mild bilateral foraminal stenosis. C5-C6: Interbody disc device in place. Partially calcified disc bulge. Spinal canal is decompressed. Severe right and mild left foraminal stenosis. C6-C7: Disc bulge. Mild spinal canal stenosis. Mild bilateral foraminal stenosis. C7-T1: No disc herniation. No significant spinal canal or neural foraminal stenosis. Lungs: No focal airspace disease. Partially imaged left pleural effusion. Soft tissues: Nonspecific scarring and ill-defined fluid density with scattered areas of calcification in the posterior paraspinous soft tissues. There is small amount of gas surrounding the heads of the transpedicular screws at the C2 level, possibly related to recent intervention. IMPRESSION: 1. Surgical changes related to fusion spanning from C2 caudally into the thoracic spine. No evidence of hardware complication. Background multilevel degenerative changes, as described. 2. Nonspecific scarring and fluid density with scattered areas of calcification in the posterior paraspinous soft tissues. There is small amount of gas surrounding the heads of the transpedicular screws at the C2 level, possibly related to recent intervention. Recommend clinical correlation. 3. Partially imaged left pleural effusion. Bulmaro Moncada MD On 07/23/2022 12:36:36; [id number] [facility] [id number] 13:21:00 Test Item Value Reference Range Interpretation Comments RADRPT (test code PROCEDURE INFORMATION: = RADRPT) Exam: XR Abdomen Exam date and time: 07/22/2022 12:29 PM Age: 62 years old Clinical indication: /assess stool burden TECHNIQUE: Imaging protocol: Radiologic exam of the abdomen. Views: Frontal supine view of the abdomen. 1 View. COMPARISON: SPINE THORACIC W CONTRAST CT 08/02/2021 10:23 AM FINDINGS: Gastrointestinal tract: There is a non-obstructive bowel gas pattern. There is no abnormal dilatation of bowel loops. There is no pneumatosis or mass effect. There is moderate retained fecal matter in the colon most pronounced in the ascending colon.Bones/joints: Previous thoracolumbar spinal fusion and total left hip replacement. Soft tissues: There are surgical clips in the left mid abdomen and epigastric region. IMPRESSION: Moderate retained fecal matter in the colon. Pablo Verdugo MD On 07/23/2022 07:20:12; [id number] [facility]AllenOoujwizRBMBKK9502-05-99 20:54:14 Test Item Value Reference Range Interpretation Comments RADRPT (test code = PROCEDURE INFORMATION: RADRPT) Exam: XR Chest Exam date and time: 07/22/2022 12:29 PM Age: 62 years old Clinical indication: /access for atelectasis post op TECHNIQUE: Imaging protocol: Radiologic exam of the chest. Views: 1 view. COMPARISON: CHEST 1VIEW DX 07/22/2021 8:24 AM FINDINGS: Tubes, catheters and devices: Left arm midline is demonstrated. The catheter tip overlies the axillary region. Surgical clips overlie the bilateral abdomen. Lungs: Lung volumes are decreased. Bilateral perihilar and basilar lung interstitial and alveolar opacities are demonstrated. The pulmonary alveolar consolidation opacities are most prominent within the retrocardiac lower left lung. Progression of lung opacities is demonstrated. Pleural spaces: Unremarkable. No pleural effusion. No pneumothorax. Heart/Mediastinum: The cardiac silhouette appears borderline prominent. Vasculature: Tortuous and ectatic aorta is demonstrated. Bones/joints: Transpedicular screws and Alexander rods overlie the cervical, thoracolumbar spine. The entire superior and inferior extent of the spinal bony hardware is incompletely visualized. Diffusely decreased bone density. Diffusely severely decreased bone density. Limited sensitivity to detect acute abnormalities. Generalized bony degenerative changes. Old healed right rib fractures are demonstrated. IMPRESSION: 1. Progression of pulmonary atelectasis, infiltrates or edema, most prominent within retrocardiac left lower chest. 2. Borderline prominence of the cardiac silhouette. 3. Degenerative and postsurgical changes are demonstrated, as described above. Yordy Delong MD On 07/22/2022 14:53:41; [id number] [facility]inteCnssgeoLZBJNVNGR3716-38-01 12:27:00 Test Item Value Reference Range Interpretation Comments Hgb A1C (test code = Hgb A1C) 4.8 [facility] PointeOmduzvvKSHSECGVK3859-30-99 12:27:00 Test Item Value Reference Range Interpretation Comments Chol (test code = Chol) 90 [facility] PointeMxsiwouZSLUMJCHE9800-65-24 12:27:00 Test Item Value Reference Range Interpretation Comments HDL (test code = HDL) 40 [facility] PointeVjqskyxDSZXSASKA6341-07-54 12:27:00 Test Item Value Reference Range Interpretation Comments Chol/HDL Ratio (test code = Chol/HDL 2.25 1 3.90-5.80 Ratio) [facility] PointeLaeuriyCKZERATUE7372-39-45 12:27:00 Test Item Value Reference Range Interpretation Comments LDL (Calculated) (test code = LDL 29 (Calculated)) [facility] PointeNdkxipbZQSDHNZQA6118-31-54 12:27:00 Test Item Value Reference Range Interpretation Comments VLDL (test code = VLDL) 21 1 [facility] PointeWzuwacpMXHLNFKAS0743-20-16 12:27:00 Test Item Value Reference Range Interpretation Comments TSH (test code = TSH) 3.630 0.360-3.740 [facility] PointeAjfeayeEKVYIQAOP9938-42-79 12:27:00 Test Item Value Reference Range Interpretation Comments Vitamin D, 25-OH, Total (test code = 41 30-100 Vitamin D, 25-OH, Total) [facility]JsxflhbZKDBWZMYOC8512-78-18 12:27:00 Test Item Value Reference Range Interpretation Comments Prealbumin (test code = Prealbumin) 7.8 18.0-45.0 [facility] RNA [Presence] in Respiratory specimen by ALEJANDRO with probe dlbjvijvy0384-99-55 01:57:16 Test Item Value Reference Range Interpretation Comments SARS-CoV-2 (COVID-19) RNA Not detected [Presence] in Respiratory specimen by ALEJANDRO with probe detection (test code = 15199-2) Whether patient is employed in a Unknown healthcare setting (test code = 09992-6) Whether the patient has symptoms Unknown related to condition of interest (test code = 21412-9) Whether the patient was Unknown hospitalized for condition of interest (test code = 82260-1) Whether the patient was admitted Unknown to intensive care unit (ICU) for condition of interest (test code = 42155-3) Whether patient resides in a Unknown congregate care setting (test code = 78266-7) status (test code = Unknown 57905-9) Date and time of symptom onset Unknown (test code = 39078-7) MICHA RICHARDSSARS-CoV-2 (COVID-19) RNA [Presence] in Respiratory specimen by ALEJANDRO with probe [id number] 10:12:52 Test Item Value Reference Range Interpretation Comments SARS-CoV-2 (COVID-19) RNA Not detected [Presence] in Respiratory specimen by ALEJANDRO with probe detection (test code = 78996-8) Whether patient is employed in a Unknown healthcare setting (test code = 47726-4) Whether the patient has symptoms Unknown related to condition of interest (test code = 23035-8) Whether the patient was Unknown hospitalized for condition of interest (test code = 82331-8) Whether the patient was admitted Unknown to intensive care unit (ICU) for condition of interest (test code = 80251-5) Whether patient resides in a Unknown congregate care setting (test code = 92021-6) status (test code = Unknown 76395-0) Date and time of symptom onset Unknown (test code = 13815-6) MICHA CORTÉS [id number] 11:31:00 Test Item Value Reference Range Interpretation Comments Segs (test code = Segs) 70.2 45.0-75.0 [facility] SouthYnyinrbTFYMPQBDLK5171-58-01 11:31:00 Test Item Value Reference Range Interpretation Comments Lymphocytes (test code = Lymphocytes) 21.5 20.0-40.0 [facility] SouthZozdnuuUPSSNPQURO2615-99-43 11:31:00 Test Item Value Reference Range Interpretation Comments Monocytes (test code = Monocytes) 5.0 2.0-12.0 [facility] SouthNddelorVASDPXTDKS5088-57-82 11:31:00 Test Item Value Reference Range Interpretation Comments Eosinophils (test code = 2.8 See_Comment [A utomated message] The Eosinophils) system which ge nerated this result tra nsmitted reference range : <=4.0. The reference r patricio was not used to int erpret this result as normal/abnormal . [facility] SouthOlvmlauAKXNVYVEOH1811-61-28 11:31:00 Test Item Value Reference Range Interpretation Comments Basophils (test code = 0.5 See_Comment [Aut omated message] The Basophils) system which ge nerated this result tra nsmitted reference range : <=1.0. The reference r patricio was not used to int erpret this result as normal/abnormal . [place] [address]-03-02 11:31:00 Test Item Value Reference Range Interpretation Comments Neutrophils # (test code = Neutrophils 5.9 1.5-8.1 #) [place] 799772-03-02 11:31:00 Test Item Value Reference Range Interpretation Comments Lymphocytes # (test code = Lymphocytes 1.8 1.0-5.5 #) [place] 799772-03-02 11:31:00 Test Item Value Reference Range Interpretation Comments Monocytes # (test code 0.4 See_Comment [Aut omated message] The = Monocytes #) system which generated this result tra nsmitted reference range : <=0.8. The reference r patricio was not used to int erpret this result as normal/abnormal . [place] [address]-03-02 11:31:00 Test Item Value Reference Range Interpretation Comments Eosinophils # (test code 0.2 See_Comment [A utomated message] The = Eosinophils #) system whic h generated this result tra nsmitted reference range : <=0.5. The reference r patricio was not used to int erpret this result as normal/abnormal . [place] 799772-03-02 11:31:00 Test Item Value Reference Range Interpretation Comments WBC (test code = WBC) 8.5 3.7-10.4 [place] [address]-03-02 11:31:00 Test Item Value Reference Range Interpretation Comments RBC (test code = RBC) 3.31 4.20-5.40 [place] [address]-03-02 11:31:00 Test Item Value Reference Range Interpretation Comments Hgb (test code = Hgb) 10.6 12.0-16.0 [place] 799772-03-02 11:31:00 Test Item Value Reference Range Interpretation Comments Hct (test code = Hct) 31.6 36.0-48.0 [place] 799772-03-02 11:31:00 Test Item Value Reference Range Interpretation Comments MCV (test code = MCV) 95.4 80.0-98.0 [facility]AL[facility] 11:31:00 Test Item Value Reference Range Interpretation Comments MCH (test code = MCH) 32.2 pg 27.0-31.0 [facility] SouthDscpxylREVAYAJSTM1914-58-98 11:31:00 Test Item Value Reference Range Interpretation Comments MCHC (test code = MCHC) 33.7 32.0-36.0 [facility] SouthGnxyxrtHJESJPFGCT2750-24-19 11:31:00 Test Item Value Reference Range Interpretation Comments RDW (test code = RDW) 17.7 11.5-14.5 [place] 799772-03-02 11:31:00 Test Item Value Reference Range Interpretation Comments Platelet (test code = Platelet) 135 133-450 [facility] SouthNrdeuxuVLJKHZCQGZ4230-12-79 11:31:00 Test Item Value Reference Range Interpretation Comments MPV (test code = MPV) 8.4 7.4-10.4 [place] 799772-03-02 11:31:00 Test Item Value Reference Range Interpretation Comments Sed Rate (test code = 11 See_Comment [Auto mated message] The Sed Rate) system which ge nerated this result transmit lupe reference range : <=20. The reference range was not used to interpr et this result as mercedes l/abnormal. [facility]IqgslhqLXZOTYNGUZ4140-91-76 11:31:00 Test Item Value Reference Range Interpretation Comments C-REACTIVE PROTEIN (test code = 9.1 C-REACTIVE PROTEIN) [place] 799772-03-02 11:31:00 Test Item Value Reference Range Interpretation Comments Segs (test code = Segs) 70.2 45.0-75.0 [place] 799772-03-02 11:31:00 Test Item Value Reference Range Interpretation Comments Lymphocytes (test code = Lymphocytes) 21.5 20.0-40.0 [place] [address]-03-02 11:31:00 Test Item Value Reference Range Interpretation Comments Monocytes (test code = Monocytes) 5.0 2.0-12.0 [place] [address]-03-02 11:31:00 Test Item Value Reference Range Interpretation Comments Eosinophils (test code = 2.8 See_Comment [A utomated message] The Eosinophils) system which ge nerated this result tra nsmitted reference range : <=4.0. The reference r patricio was not used to int erpret this result as normal/abnormal . [facility] SouthGrwmgrcAICBINNZSG7352-94-28 11:31:00 Test Item Value Reference Range Interpretation Comments Basophils (test code = 0.5 See_Comment [Aut omated message] The Basophils) system which ge nerated this result tra nsmitted reference range : <=1.0. The reference r patricio was not used to int erpret this result as normal/abnormal . [facility] SouthWywtzcbFPTOQNJFLM7183-45-08 11:31:00 Test Item Value Reference Range Interpretation Comments Neutrophils # (test code = Neutrophils 5.9 1.5-8.1 #) [facility] SouthKkikatwWPQEAWAHMB6443-52-36 11:31:00 Test Item Value Reference Range Interpretation Comments Lymphocytes # (test code = Lymphocytes 1.8 1.0-5.5 #) [place] 799772-03-02 11:31:00 Test Item Value Reference Range Interpretation Comments Monocytes # (test code 0.4 See_Comment [Aut omated message] The = Monocytes #) system which generated this result tra nsmitted reference range : <=0.8. The reference r patricio was not used to int erpret this result as normal/abnormal . [facility] SouthUjunxpoQSZPUBQUEA0957-05-64 11:31:00 Test Item Value Reference Range Interpretation Comments Eosinophils # (test code 0.2 See_Comment [A utomated message] The = Eosinophils #) system whic h generated this result tra nsmitted reference range : <=0.5. The reference r patricio was not used to int erpret this result as normal/abnormal . [facility] SouthHwoerhxGPWYDECMHS5297-09-12 11:31:00 Test Item Value Reference Range Interpretation Comments WBC (test code = WBC) 8.5 3.7-10.4 [place] 799772-03-02 11:31:00 Test Item Value Reference Range Interpretation Comments RBC (test code = RBC) 3.31 4.20-5.40 [place] [address]-03-02 11:31:00 Test Item Value Reference Range Interpretation Comments Hgb (test code = Hgb) 10.6 12.0-16.0 [place] [address]-03-02 11:31:00 Test Item Value Reference Range Interpretation Comments Hct (test code = Hct) 31.6 36.0-48.0 [facility] SouthXmbwaqaBXJPLBWYTL8318-97-12 11:31:00 Test Item Value Reference Range Interpretation Comments MCV (test code = MCV) 95.4 80.0-98.0 [facility] SouthXxuaedbICPNBXQJMH8926-25-53 11:31:00 Test Item Value Reference Range Interpretation Comments MCH (test code = MCH) 32.2 pg 27.0-31.0 [facility] SouthShomeglNLECUQFTBL4702-21-27 11:31:00 Test Item Value Reference Range Interpretation Comments MCHC (test code = MCHC) 33.7 32.0-36.0 [facility] SouthBdurqvsWTUIGEMLER4622-78-42 11:31:00 Test Item Value Reference Range Interpretation Comments RDW (test code = RDW) 17.7 11.5-14.5 [facility] SouthCyrkrnlWLBHGEMWAA3484-86-71 11:31:00 Test Item Value Reference Range Interpretation Comments Platelet (test code = Platelet) 135 133-450 [facility] SouthStozncdZZROZPHFQZ1997-18-17 11:31:00 Test Item Value Reference Range Interpretation Comments MPV (test code = MPV) 8.4 7.4-10.4 [facility] SouthLkhxztbVVPMHGJWHL1554-82-43 11:31:00 Test Item Value Reference Range Interpretation Comments Sed Rate (test code = 11 See_Comment [Auto mated message] The Sed Rate) system which ge nerated this result transmit lupe reference range : <=20. The reference range was not used to interpr et this result as mercedes l/abnormal. [facility] HospitalNiscigpHGRBIJGLDJ8426-51-66 11:31:00 Test Item Value Reference Range Interpretation Comments C-REACTIVE PROTEIN (test code = 9.1 C-REACTIVE PROTEIN) [facility] SouthLeewpirXQAQMUNQUJ4859-55-66 11:59:00 Test Item Value Reference Range Interpretation Comments RBC Morph (test code = Normal (08/07/21 5:59 RBC Morph) AM) [facility] SouthKxlgprrPNHCSEAZWE6883-24-22 11:59:00 Test Item Value Reference Range Interpretation Comments Plt Morph (test code = Normal (08/07/21 5:59 Plt Morph) AM) [facility] SouthMbbhjgzBBGGMPVNGA8730-51-58 11:59:00 Test Item Value Reference Range Interpretation Comments Segs (test code = Segs) 83.4 45.0-75.0 [place] 799772-02-28 11:59:00 Test Item Value Reference Range Interpretation Comments Lymphocytes (test code = Lymphocytes) 10.6 20.0-40.0 [place] 799772-02-28 11:59:00 Test Item Value Reference Range Interpretation Comments Monocytes (test code = Monocytes) 4.1 2.0-12.0 [place] 799772-02-28 11:59:00 Test Item Value Reference Range Interpretation Comments Eosinophils (test code = 1.5 See_Comment [A utomated message] The Eosinophils) system which ge nerated this result tra nsmitted reference range : <=4.0. The reference r patricio was not used to int erpret this result as normal/abnormal . [place] 799772-02-28 11:59:00 Test Item Value Reference Range Interpretation Comments Basophils (test code = 0.4 See_Comment [Aut omated message] The Basophils) system which ge nerated this result tra nsmitted reference range : <=1.0. The reference r patricio was not used to int erpret this result as normal/abnormal . [facility] SouthQxttpjhBHYMZJFTPS7605-21-00 11:59:00 Test Item Value Reference Range Interpretation Comments Neutrophils # (test code = Neutrophils 10.2 1.5-8.1 #) [place] 799772-02-28 11:59:00 Test Item Value Reference Range Interpretation Comments Lymphocytes # (test code = Lymphocytes 1.3 1.0-5.5 #) [place] 799772-02-28 11:59:00 Test Item Value Reference Range Interpretation Comments Monocytes # (test code 0.5 See_Comment [Aut omated message] The = Monocytes #) system which generated this result tra nsmitted reference range : <=0.8. The reference r patricio was not used to int erpret this result as normal/abnormal . [place] [address]-02-28 11:59:00 Test Item Value Reference Range Interpretation Comments Eosinophils # (test code 0.2 See_Comment [A utomated message] The = Eosinophils #) system [facility] h generated this result tra nsmitted reference range : <=0.5. The reference r patricio was not used to int erpret this result as normal/abnormal . [facility] SouthHuraozzYVKITKFZQS9916-64-10 11:59:00 Test Item Value Reference Range Interpretation Comments WBC (test code = WBC) 12.2 3.7-10.4 [place] 799772-02-28 11:59:00 Test Item Value Reference Range Interpretation Comments RBC (test code = RBC) 3.56 4.20-5.40 [place] 799772-02-28 11:59:00 Test Item Value Reference Range Interpretation Comments Hgb (test code = Hgb) 11.3 12.0-16.0 [place] [address]-02-28 11:59:00 Test Item Value Reference Range Interpretation Comments Hct (test code = Hct) 33.8 36.0-48.0 [place] 799772-02-28 11:59:00 Test Item Value Reference Range Interpretation Comments MCV (test code = MCV) 94.9 80.0-98.0 [place] 799772-02-28 11:59:00 Test Item Value Reference Range Interpretation Comments MCH (test code = MCH) 31.8 pg 27.0-31.0 [facility] SouthYqnryflHUYVUMXTQX4795-70-73 11:59:00 Test Item Value Reference Range Interpretation Comments MCHC (test code = MCHC) 33.5 32.0-36.0 [facility] SouthHvulsyqROZDSHAAFI0426-06-26 11:59:00 Test Item Value Reference Range Interpretation Comments RDW (test code = RDW) 17.8 11.5-14.5 [place] 799772-02-28 11:59:00 Test Item Value Reference Range Interpretation Comments Platelet (test code = Platelet) 150 133-450 [place] 799772-02-28 11:59:00 Test Item Value Reference Range Interpretation Comments MPV (test code = MPV) 8.4 7.4-10.4 [place] 799772-02-28 11:59:00 Test Item Value Reference Range Interpretation Comments Sed Rate (test code = 5 See_Comment [Auto mated message] The Sed Rate) system which ge nerated this result transmit lupe reference range : <=20. The reference range was not used to interpr et this result as mercedes l/abnormal. [facility] HospitalBfplyqzBVKZYRMZTZ2551-03-20 11:59:00 Test Item Value Reference Range Interpretation Comments C-REACTIVE PROTEIN (test code = 4.2 C-REACTIVE PROTEIN) [place] 799772-02-28 11:59:00 Test Item Value Reference Range Interpretation Comments RBC Morph (test code = Normal (08/07/21 5:59 RBC Morph) AM) [place] 799772-02-28 11:59:00 Test Item Value Reference Range Interpretation Comments Plt Morph (test code = Normal (08/07/21 5:59 Plt Morph) AM) [facility] SouthItyjayyRPYAJMGBGB5813-35-49 11:59:00 Test Item Value Reference Range Interpretation Comments Segs (test code = Segs) 83.4 45.0-75.0 [place] 799772-02-28 11:59:00 Test Item Value Reference Range Interpretation Comments Lymphocytes (test code = Lymphocytes) 10.6 20.0-40.0 [place] [address]-02-28 11:59:00 Test Item Value Reference Range Interpretation Comments Monocytes (test code = Monocytes) 4.1 2.0-12.0 [place] 799772-02-28 11:59:00 Test Item Value Reference Range Interpretation Comments Eosinophils (test code = 1.5 See_Comment [A utomated message] The Eosinophils) system which ge nerated this result tra nsmitted reference range : <=4.0. The reference r patricio was not used to int erpret this result as normal/abnormal . [facility] SouthXxhcdlbUXXSPVBLBM2017-34-64 11:59:00 Test Item Value Reference Range Interpretation Comments Basophils (test code = 0.4 See_Comment [Aut omated message] The Basophils) system which ge nerated this result tra nsmitted reference range : <=1.0. The reference r patricio was not used to int erpret this result as normal/abnormal . [place] 799772-02-28 11:59:00 Test Item Value Reference Range Interpretation Comments Neutrophils # (test code = Neutrophils 10.2 1.5-8.1 #) [place] 799772-02-28 11:59:00 Test Item Value Reference Range Interpretation Comments Lymphocytes # (test code = Lymphocytes 1.3 1.0-5.5 #) [place] 799772-02-28 11:59:00 Test Item Value Reference Range Interpretation Comments Monocytes # (test code 0.5 See_Comment [Aut omated message] The = Monocytes #) system which generated this result tra nsmitted reference range : <=0.8. The reference r patricio was not used to int erpret this result as normal/abnormal . [facility] SouthXhmyrgkBXJPIJDCYU6607-44-60 11:59:00 Test Item Value Reference Range Interpretation Comments Eosinophils # (test code 0.2 See_Comment [A utomated message] The = Eosinophils #) system whic h generated this result tra nsmitted reference range : <=0.5. The reference r patricio was not used to int erpret this result as normal/abnormal . [facility] SouthCllcxqyFYKPQVDYWV2765-03-38 11:59:00 Test Item Value Reference Range Interpretation Comments WBC (test code = WBC) 12.2 3.7-10.4 [facility] SouthSbpwbgwJXREONIDQV5014-32-19 11:59:00 Test Item Value Reference Range Interpretation Comments RBC (test code = RBC) 3.56 4.20-5.40 [facility] SouthCuxqcbtTPCDZGEQIR3226-71-05 11:59:00 Test Item Value Reference Range Interpretation Comments Hgb (test code = Hgb) 11.3 12.0-16.0 [facility] SouthCuihlmeQSXEFPGFOS0896-97-58 11:59:00 Test Item Value Reference Range Interpretation Comments Hct (test code = Hct) 33.8 36.0-48.0 [facility] SouthBoldufiOHYPYJRVCS8434-43-34 11:59:00 Test Item Value Reference Range Interpretation Comments MCV (test code = MCV) 94.9 80.0-98.0 [facility] SouthTshcvwhICRSRFASDS7995-83-55 11:59:00 Test Item Value Reference Range Interpretation Comments MCH (test code = MCH) 31.8 pg 27.0-31.0 [place] 799772-02-28 11:59:00 Test Item Value Reference Range Interpretation Comments MCHC (test code = MCHC) 33.5 32.0-36.0 [facility] SouthTewankdMLCNAAOATR1863-14-99 11:59:00 Test Item Value Reference Range Interpretation Comments RDW (test code = RDW) 17.8 11.5-14.5 [facility] SouthMrvfhyvILJYWYKWRM0367-60-41 11:59:00 Test Item Value Reference Range Interpretation Comments Platelet (test code = Platelet) 150 133-450 [facility] SouthKvltsobAJDQIQWIYL3667-14-47 11:59:00 Test Item Value Reference Range Interpretation Comments MPV (test code = MPV) 8.4 7.4-10.4 [place] 799772-02-28 11:59:00 Test Item Value Reference Range Interpretation Comments Sed Rate (test code = 5 See_Comment [Auto mated message] The Sed Rate) system which ge nerated this result transmit ulpe reference range : <=20. The reference range was not used to interpr et this result as mercedes l/abnormal. [facility] HospitalNhlmqouWCKZREKZAE4603-32-13 11:59:00 Test Item Value Reference Range Interpretation Comments C-REACTIVE PROTEIN (test code = 4.2 C-REACTIVE PROTEIN) [place] 365172-02-25 11:25:00 Test Item Value Reference Range Interpretation Comments Glucose Lvl (test code = Glucose Lvl) 106 70-99 [place] 365172-02-25 11:25:00 Test Item Value Reference Range Interpretation Comments BUN (test code = BUN) 02 01- [place] 365172-02-25 11:25:00 Test Item Value Reference Range Interpretation Comments Creatinine Lvl (test code = Creatinine 0.49 0.50-1.40 Lvl) [place] 365172-02-25 11:25:00 Test Item Value Reference Range Interpretation Comments Sodium Lvl (test code = Sodium Lvl) 140 135-145 [place] 365172-02-25 11:25:00 Test Item Value Reference Range Interpretation Comments Potassium Lvl (test code = Potassium 4.6 3.5-5.1 Lvl) [place] 365172-02-25 11:25:00 Test Item Value Reference Range Interpretation Comments Chloride Lvl (test code = Chloride Lvl) 108 95-109 [place] 365172-02-25 11:25:00 Test Item Value Reference Range Interpretation Comments CO2 (test code = CO2) 27 24-32 [place] 365172-02-25 11:25:00 Test Item Value Reference Range Interpretation Comments Calcium Lvl (test code = Calcium Lvl) 8.5 8.5-10.5 [place] 365172-02-25 11:25:00 Test Item Value Reference Range Interpretation Comments Total Protein (test code = Total 5.1 6.4-8.4 Protein) [facility] KNNPW5636-59-79 11:25:00 Test Item Value Reference Range Interpretation Comments Albumin Lvl (test code = Albumin Lvl) 2.4 3.5-5.0 [facility] [id number] 11:25:00 Test Item Value Reference Range Interpretation Comments ALT (test code = ALT) 46 See_Comment [Auto mated message] The system which ge nerated this result transmit lupe reference range : <=65. The reference range was not used to interpr et this result as mercedes l/abnormal. [facility] LKIYO5148-51-62 11:25:00 Test Item Value Reference Range Interpretation Comments AST (test code = AST) 15 See_Comment [Auto mated message] The system which ge nerated this result transmit lupe reference range : <=37. The reference range was not used to interpr et this result as mercedes l/abnormal. [facility] AWYTY0750-83-07 11:25:00 Test Item Value Reference Range Interpretation Comments Alk Phos (test code = Alk Phos) 84 39-136 [facility] GBGPD4801-04-60 11:25:00 Test Item Value Reference Range Interpretation Comments Bili Total (test code = Bili Total) 0.4 0.2-1.3 [facility] HCVTT8747-33-53 11:25:00 Test Item Value Reference Range Interpretation Comments AGAP (test code = AGAP) 9.6 10.0-20.0 [facility] DFBPE2620-27-66 11:25:00 Test Item Value Reference Range Interpretation Comments B/C Ratio (test code = B/C Ratio) 53 1 6-25 [facility] KUYIR2082-46-01 11:25:00 Test Item Value Reference Range Interpretation Comments Globulin (test code = Globulin) 2.7 2.7-4.2 [facility] [place] QBHGS0709-91-01 11:25:00 Test Item Value Reference Range Interpretation Comments A/G Ratio (test code = A/G Ratio) 0.9 1 0.7-1.6 [facility] [place] [id number] 11:25:00 Test Item Value Reference Range Interpretation Comments eGFR (test code = eGFR) 106 [place] 365172-02-25 11:25:00 Test Item Value Reference Range Interpretation Comments Magnesium Lvl (test code = Magnesium 2.2 1.8-2.4 Lvl) [place] 365172-02-25 11:25:00 Test Item Value Reference Range Interpretation Comments Phosphorus (test code = Phosphorus) 3.6 2.5-4.5 [place] 799772-02-25 11:25:00 Test Item Value Reference Range Interpretation Comments RBC Morph (test code = Normal (08/04/21 5:25 RBC Morph) AM) [place] 799772-02-25 11:25:00 Test Item Value Reference Range Interpretation Comments Plt Morph (test code = Normal (08/04/21 5:25 Plt Morph) AM) [place] 799772-02-25 11:25:00 Test Item Value Reference Range Interpretation Comments Segs (test code = Segs) 87.5 45.0-75.0 [place] 799772-02-25 11:25:00 Test Item Value Reference Range Interpretation Comments Lymphocytes (test code = Lymphocytes) 8.4 20.0-40.0 [place] [address]-02-25 11:25:00 Test Item Value Reference Range Interpretation Comments Monocytes (test code = Monocytes) 3.4 2.0-12.0 [place] 799772-02-25 11:25:00 Test Item Value Reference Range Interpretation Comments Eosinophils (test code = 0.4 See_Comment [A utomated message] The Eosinophils) system which ge nerated this result tra nsmitted reference range : <=4.0. The reference r patricio was not used to int erpret this result as normal/abnormal . [place] 799772-02-25 11:25:00 Test Item Value Reference Range Interpretation Comments Basophils (test code = 0.3 See_Comment [Aut omated message] The Basophils) system which ge nerated this result tra nsmitted reference range : <=1.0. The reference r patricio was not used to int erpret this result as normal/abnormal . [place] 365172-02-25 11:25:00 Test Item Value Reference Range Interpretation Comments Glucose Lvl (test code = Glucose Lvl) 106 70-99 [place] [address]-02-25 11:25:00 Test Item Value Reference Range Interpretation Comments BUN (test code = BUN) 26 7-22 [place] 365172-02-25 11:25:00 Test Item Value Reference Range Interpretation Comments Creatinine Lvl (test code = Creatinine 0.49 0.50-1.40 Lvl) [place] [address]-02-25 11:25:00 Test Item Value Reference Range Interpretation Comments Sodium Lvl (test code = Sodium Lvl) 140 135-145 [place] 365172-02-25 11:25:00 Test Item Value Reference Range Interpretation Comments Potassium Lvl (test code = Potassium 4.6 3.5-5.1 Lvl) [place] 365172-02-25 11:25:00 Test Item Value Reference Range Interpretation Comments Chloride Lvl (test code = Chloride Lvl) 108 95-109 [place] 365172-02-25 11:25:00 Test Item Value Reference Range Interpretation Comments CO2 (test code = CO2) 27 24-32 [place] 365172-02-25 11:25:00 Test Item Value Reference Range Interpretation Comments Calcium Lvl (test code = Calcium Lvl) 8.5 8.5-10.5 [place] [address]-02-25 11:25:00 Test Item Value Reference Range Interpretation Comments Total Protein (test code = Total 5.1 6.4-8.4 Protein) [place] [address]-02-25 11:25:00 Test Item Value Reference Range Interpretation Comments Albumin Lvl (test code = Albumin Lvl) 2.4 3.5-5.0 [place] 365172-02-25 11:25:00 Test Item Value Reference Range Interpretation Comments ALT (test code = ALT) 46 See_Comment [Auto mated message] The system which ge nerated this result transmit lupe reference range : <=65. The reference range was not used to interpr et this result as mercedes l/abnormal. [place] 365172-02-25 11:25:00 Test Item Value Reference Range Interpretation Comments AST (test code = AST) 15 See_Comment [Auto mated message] The system which ge nerated this result transmit lupe reference range : <=37. The reference range was not used to interpr et this result as mercedes l/abnormal. [facility]2022-02-25 11:25:00 Test Item Value Reference Range Interpretation Comments Alk Phos (test code = Alk Phos) 84 39-136 [place] 365172-02-25 11:25:00 Test Item Value Reference Range Interpretation Comments Bili Total (test code = Bili Total) 0.4 0.2-1.3 [place] 365172-02-25 11:25:00 Test Item Value Reference Range Interpretation Comments AGAP (test code = AGAP) 9.6 10.0-20.0 [place] 365172-02-25 11:25:00 Test Item Value Reference Range Interpretation Comments B/C Ratio (test code = B/C Ratio) 53 1 6-25 [place] 365172-02-25 11:25:00 Test Item Value Reference Range Interpretation Comments Globulin (test code = Globulin) 2.7 2.7-4.2 [place] 365172-02-25 11:25:00 Test Item Value Reference Range Interpretation Comments A/G Ratio (test code = A/G Ratio) 0.9 1 0.7-1.6 [place] 365172-02-25 11:25:00 Test Item Value Reference Range Interpretation Comments eGFR (test code = eGFR) 106 [place] 365172-02-25 11:25:00 Test Item Value Reference Range Interpretation Comments Magnesium Lvl (test code = Magnesium 2.2 1.8-2.4 Lvl) [place] 365172-02-25 11:25:00 Test Item Value Reference Range Interpretation Comments Phosphorus (test code = Phosphorus) 3.6 2.5-4.5 [place] 799772-02-25 11:25:00 Test Item Value Reference Range Interpretation Comments RBC Morph (test code = Normal (08/04/21 5:25 RBC Morph) AM) [place] 799772-02-25 11:25:00 Test Item Value Reference Range Interpretation Comments Neutrophils # (test code = Neutrophils 12.4 1.5-8.1 #) [place] 799772-02-25 11:25:00 Test Item Value Reference Range Interpretation Comments Plt Morph (test code = Normal (08/04/21 5:25 Plt Morph) AM) [facility] SouthIwylugzLMIOEIPHBU0797-13-63 11:25:00 Test Item Value Reference Range Interpretation Comments Segs (test code = Segs) 87.5 45.0-75.0 [facility] SouthBmwdiyySGFWXCDMEQ8751-15-78 11:25:00 Test Item Value Reference Range Interpretation Comments Lymphocytes (test code = Lymphocytes) 8.4 20.0-40.0 [place] 799772-02-25 11:25:00 Test Item Value Reference Range Interpretation Comments Monocytes (test code = Monocytes) 3.4 2.0-12.0 [place] 799772-02-25 11:25:00 Test Item Value Reference Range Interpretation Comments Eosinophils (test code = 0.4 See_Comment [A utomated message] The Eosinophils) system which ge nerated this result tra nsmitted reference range : <=4.0. The reference r patricio was not used to int erpret this result as normal/abnormal . [place] 799772-02-25 11:25:00 Test Item Value Reference Range Interpretation Comments Basophils (test code = 0.3 See_Comment [Aut omated message] The Basophils) system which ge nerated this result tra nsmitted reference range : <=1.0. The reference r patricio was not used to int erpret this result as normal/abnormal . [facility] SouthCthfibeHUDENQYRIS0697-59-74 11:25:00 Test Item Value Reference Range Interpretation Comments Neutrophils # (test code = Neutrophils 12.4 1.5-8.1 #) [place] 799772-02-25 11:25:00 Test Item Value Reference Range Interpretation Comments Lymphocytes # (test code = Lymphocytes 1.2 1.0-5.5 #) [place] 799772-02-25 11:25:00 Test Item Value Reference Range Interpretation Comments Monocytes # (test code 0.5 See_Comment [Aut omated message] The = Monocytes #) system which generated this result tra nsmitted reference range : <=0.8. The reference r patricio was not used to int erpret this result as normal/abnormal . [facility] SouthCtrxpwyIHLNZNBGYF3038-09-24 11:25:00 Test Item Value Reference Range Interpretation Comments Eosinophils # (test code 0.1 See_Comment [A utomated message] The = Eosinophils #) system whic h generated this result tra nsmitted reference range : <=0.5. The reference r patricio was not used to int erpret this result as normal/abnormal . [facility] SouthHoegrfeMQNKEWOQFX5222-59-29 11:25:00 Test Item Value Reference Range Interpretation Comments WBC (test code = WBC) 14.2 3.7-10.4 [place] 799772-02-25 11:25:00 Test Item Value Reference Range Interpretation Comments RBC (test code = RBC) 3.44 4.20-5.40 [place] 799772-02-25 11:25:00 Test Item Value Reference Range Interpretation Comments Hgb (test code = Hgb) 10.8 12.0-16.0 [place] [address]-02-25 11:25:00 Test Item Value Reference Range Interpretation Comments Hct (test code = Hct) 32.4 36.0-48.0 [place] [address]-02-25 11:25:00 Test Item Value Reference Range Interpretation Comments MCV (test code = MCV) 94.3 80.0-98.0 [place] 799772-02-25 11:25:00 Test Item Value Reference Range Interpretation Comments MCH (test code = MCH) 31.5 pg 27.0-31.0 [place] 799772-02-25 11:25:00 Test Item Value Reference Range Interpretation Comments MCHC (test code = MCHC) 33.4 32.0-36.0 [place] [address]-02-25 11:25:00 Test Item Value Reference Range Interpretation Comments RDW (test code = RDW) 17.7 11.5-14.5 [place] 799772-02-25 11:25:00 Test Item Value Reference Range Interpretation Comments Platelet (test code = Platelet) 182 133-450 [place] 799772-02-25 11:25:00 Test Item Value Reference Range Interpretation Comments MPV (test code = MPV) 9.0 7.4-10.4 [place] [address]-02-25 11:25:00 Test Item Value Reference Range Interpretation Comments Sed Rate (test code = 5 See_Comment [Auto mated message] The Sed Rate) system which ge nerated this result transmit lupe reference range : <=20. The reference range was not used to interpr et this result as mercedes l/abnormal. [facility] HospitalMozuhqvYWTRZIXFMP2627-73-13 11:25:00 Test Item Value Reference Range Interpretation Comments C-REACTIVE PROTEIN (test code = 3.7 C-REACTIVE PROTEIN) [place] 799772-02-25 11:25:00 Test Item Value Reference Range Interpretation Comments Lymphocytes # (test code = Lymphocytes 1.2 1.0-5.5 #) [place] 799772-02-25 11:25:00 Test Item Value Reference Range Interpretation Comments Monocytes # (test code 0.5 See_Comment [Aut omated message] The = Monocytes #) system which generated this result tra nsmitted reference range : <=0.8. The reference r patricio was not used to int erpret this result as normal/abnormal . [place] 799772-02-25 11:25:00 Test Item Value Reference Range Interpretation Comments Eosinophils # (test code 0.1 See_Comment [A utomated message] The = Eosinophils #) system whic h generated this result tra nsmitted reference range : <=0.5. The reference r patricio was not used to int erpret this result as normal/abnormal . [facility] SouthMrnhdeeDWEPUNPGLT1250-29-27 11:25:00 Test Item Value Reference Range Interpretation Comments WBC (test code = WBC) 14.2 3.7-10.4 [place] 799772-02-25 11:25:00 Test Item Value Reference Range Interpretation Comments RBC (test code = RBC) 3.44 4.20-5.40 [place] [address]-02-25 11:25:00 Test Item Value Reference Range Interpretation Comments Hgb (test code = Hgb) 10.8 12.0-16.0 [place] [address]-02-25 11:25:00 Test Item Value Reference Range Interpretation Comments Hct (test code = Hct) 32.4 36.0-48.0 [place] [address]-02-25 11:25:00 Test Item Value Reference Range Interpretation Comments MCV (test code = MCV) 94.3 80.0-98.0 [place] [address]-02-25 11:25:00 Test Item Value Reference Range Interpretation Comments MCH (test code = MCH) 31.5 pg 27.0-31.0 [facility]NNNXZLWEQD8492[facility]76-88 11:25:00 Test Item Value Reference Range Interpretation Comments MCHC (test code = MCHC) 33.4 32.0-36.0 [facility]ItdusgkRONGFYCOTO3476-61-14 11:25:00 Test Item Value Reference Range Interpretation Comments RDW (test code = RDW) 17.7 11.5-14.5 [facility] SouthFlistibBYENXUXWDW6729-40-40 11:25:00 Test Item Value Reference Range Interpretation Comments Platelet (test code = Platelet) 182 133-450 [facility] SouthIgybbgbGJBNMKJWTT9829-93-98 11:25:00 Test Item Value Reference Range Interpretation Comments MPV (test code = MPV) 9.0 7.4-10.4 [facility] SouthLmvojaiIUAIKBKHNF3154-59-25 11:25:00 Test Item Value Reference Range Interpretation Comments Sed Rate (test code = 5 See_Comment [Auto mated message] The Sed Rate) system which ge nerated this result transmit lupe reference range : <=20. The reference range was not used to interpr et this result as mercedes l/abnormal. [facility] HospitalAecxkzhDCLEFTBXBE7330-87-22 11:25:00 Test Item Value Reference Range Interpretation Comments C-REACTIVE PROTEIN (test code = 3.7 C-REACTIVE PROTEIN) [facility] SouthGomdnajCLEJQLXZUZ1089-83-30 11:43:00 Test Item Value Reference Range Interpretation Comments Plt Morph (test code = Normal (08/01/21 5:43 Plt Morph) AM) [facility] SouthDqwsjklOYPVNKUCJC1014-10-47 11:43:00 Test Item Value Reference Range Interpretation Comments Anisocyte (test code = 1+ *ABN*(08/01/21 Anisocyte) 5:43 AM) [facility] SouthBxppkeiLZVGBWDRDK3880-17-17 11:43:00 Test Item Value Reference Range Interpretation Comments Plt Morph (test code = Normal (08/01/21 5:43 Plt Morph) AM) [facility] SouthVqvonbnEQGDIICKJO3656-64-49 11:43:00 Test Item Value Reference Range Interpretation Comments Anisocyte (test code = 1+ *ABN*(08/01/21 Anisocyte) 5:43 AM) [facility] HospitalCHEM LOGJU6225-29-13 09:32:00 Test Item Value Reference Range Interpretation Comments Glucose Lvl (test code = Glucose Lvl) 75 70- [place] 365172-02-21 09:32:00 Test Item Value Reference Range Interpretation Comments BUN (test code = BUN) 12-29 [place] 365172-02-21 09:32:00 Test Item Value Reference Range Interpretation Comments Creatinine Lvl (test code = Creatinine 0.47 0.50-1.40 Lvl) [place] 365172-02-21 09:32:00 Test Item Value Reference Range Interpretation Comments Sodium Lvl (test code = Sodium Lvl) 143 135-145 [place] 365172-02-21 09:32:00 Test Item Value Reference Range Interpretation Comments Potassium Lvl (test code = Potassium 4.1 3.5-5.1 Lvl) [place] 365172-02-21 09:32:00 Test Item Value Reference Range Interpretation Comments Chloride Lvl (test code = Chloride Lvl) 112 95-109 [place] 365172-02-21 09:32:00 Test Item Value Reference Range Interpretation Comments CO2 (test code = CO2) [place] 365172-02-21 09:32:00 Test Item Value Reference Range Interpretation Comments Calcium Lvl (test code = Calcium Lvl) 8.2 8.5-10.5 [place] 365172-02-21 09:32:00 Test Item Value Reference Range Interpretation Comments AGAP (test code = AGAP) 11.1 10.0-20.0 [place] 365172-02-21 09:32:00 Test Item Value Reference Range Interpretation Comments eGFR (test code = eGFR) 107 [facility] SouthYjnimnbMANCVYSCSJ2969-41-77 09:32:00 Test Item Value Reference Range Interpretation Comments Anisocyte (test code = 1+ *ABN*(07/31/21 Anisocyte) 3:32 AM) [place] 365172-02-21 09:32:00 Test Item Value Reference Range Interpretation Comments Glucose Lvl (test code = Glucose Lvl) 75 - [place] 365172-02-21 09:32:00 Test Item Value Reference Range Interpretation Comments BUN (test code = BUN) 12-29 [place] 365172-02-21 09:32:00 Test Item Value Reference Range Interpretation Comments Creatinine Lvl (test code = Creatinine 0.47 0.50-1.40 Lvl) [place] 365172-02-21 09:32:00 Test Item Value Reference Range Interpretation Comments Sodium Lvl (test code = Sodium Lvl) 143 135-145 [place] 365172-02-21 09:32:00 Test Item Value Reference Range Interpretation Comments Potassium Lvl (test code = Potassium 4.1 3.5-5.1 Lvl) [place] 365172-02-21 09:32:00 Test Item Value Reference Range Interpretation Comments Chloride Lvl (test code = Chloride Lvl) 112 95-109 [place] 365172-02-21 09:32:00 Test Item Value Reference Range Interpretation Comments CO2 (test code = CO2) 24 24-32 [place] 365172-02-21 09:32:00 Test Item Value Reference Range Interpretation Comments Calcium Lvl (test code = Calcium Lvl) 8.2 8.5-10.5 [place] 365172-02-21 09:32:00 Test Item Value Reference Range Interpretation Comments AGAP (test code = AGAP) 11.1 10.0-20.0 [place] 365172-02-21 09:32:00 Test Item Value Reference Range Interpretation Comments eGFR (test code = eGFR) 107 [facility] SouthSexgklySIUXKVYPSW0615-64-19 09:32:00 Test Item Value Reference Range Interpretation Comments Anisocyte (test code = 1+ *ABN*(07/31/21 Anisocyte) 3:32 AM) [facility]2022 11:08:00 Test Item Value Reference Range Interpretation Comments Glucose Lvl (test code = Glucose Lvl) 122 70-99 [place] 365172-02-14 11:08:00 Test Item Value Reference Range Interpretation Comments BUN (test code = BUN) 28 7-22 [facility]2022 11:08:00 Test Item Value Reference Range Interpretation Comments Creatinine Lvl (test code = Creatinine 0.54 0.50-1.40 Lvl) [facility]2022 11:08:00 Test Item Value Reference Range Interpretation Comments Sodium Lvl (test code = Sodium Lvl) 141 135-145 [place] 365172-02-14 11:08:00 Test Item Value Reference Range Interpretation Comments Potassium Lvl (test code = Potassium 4.2 3.5-5.1 Lvl) [place] 365172-02-14 11:08:00 Test Item Value Reference Range Interpretation Comments Chloride Lvl (test code = Chloride Lvl) 110 95-109 [place] 365172-02-14 11:08:00 Test Item Value Reference Range Interpretation Comments CO2 (test code = CO2) - [place] 365172-02-14 11:08:00 Test Item Value Reference Range Interpretation Comments Calcium Lvl (test code = Calcium Lvl) 8.5 8.5-10.5 [place] 365172-02-14 11:08:00 Test Item Value Reference Range Interpretation Comments AGAP (test code = AGAP) 10.2 10.0-20.0 [facility]2022 11:08:00 Test Item Value Reference Range Interpretation Comments eGFR (test code = eGFR) 102 [facility]2022 11:08:00 Test Item Value Reference Range Interpretation Comments Glucose Lvl (test code = Glucose Lvl) 122 70-99 [place] 365172-02-14 11:08:00 Test Item Value Reference Range Interpretation Comments BUN (test code = BUN) 28 7-22 [facility]2022 11:08:00 Test Item Value Reference Range Interpretation Comments Creatinine Lvl (test code = Creatinine 0.54 0.50-1.40 Lvl) [facility]2022 11:08:00 Test Item Value Reference Range Interpretation Comments Sodium Lvl (test code = Sodium Lvl) 141 135-145 [place] 365172-02-14 11:08:00 Test Item Value Reference Range Interpretation Comments Potassium Lvl (test code = Potassium 4.2 3.5-5.1 Lvl) [place] 365172-02-14 11:08:00 Test Item Value Reference Range Interpretation Comments Chloride Lvl (test code = Chloride Lvl) 110 95-109 [place] 365172-02-14 11:08:00 Test Item Value Reference Range Interpretation Comments CO2 (test code = CO2) 25 24-32 [place] 365172-02-14 11:08:00 Test Item Value Reference Range Interpretation Comments Calcium Lvl (test code = Calcium Lvl) 8.5 8.5-10.5 [place] 365172-02-14 11:08:00 Test Item Value Reference Range Interpretation Comments AGAP (test code = AGAP) 10.2 10.0-20.0 [place] 365172-02-14 11:08:00 Test Item Value Reference Range Interpretation Comments eGFR (test code = eGFR) 102 [facility]2022-02-12 11:06:00 Test Item Value Reference Range Interpretation Comments Total Protein (test code = Total 5.6 6.4-8.4 Protein) [place] 365172-02-12 11:06:00 Test Item Value Reference Range Interpretation Comments Albumin Lvl (test code = Albumin Lvl) 2.4 3.5-5.0 [facility]2022-02-12 11:06:00 Test Item Value Reference Range Interpretation Comments ALT (test code = ALT) 117 See_Comment [Auto mated message] The system which ge nerated this result transmit lupe reference range : <=65. The reference range was not used to interpr et this result as mercedes l/abnormal. [place] 365172-02-12 11:06:00 Test Item Value Reference Range Interpretation Comments AST (test code = AST) 79 See_Comment [Auto mated message] The system which ge nerated this result transmit lupe reference range : <=37. The reference range was not used to interpr et this result as mercedes l/abnormal. [place] 365172-02-12 11:06:00 Test Item Value Reference Range Interpretation Comments Alk Phos (test code = Alk Phos) 86 39-136 [place] 365172-02-12 11:06:00 Test Item Value Reference Range Interpretation Comments Bili Total (test code = Bili Total) 0.3 0.2-1.3 [place] 365172-02-12 11:06:00 Test Item Value Reference Range Interpretation Comments B/C Ratio (test code = B/C Ratio) 52 1 6-25 [place] 365172-02-12 11:06:00 Test Item Value Reference Range Interpretation Comments Globulin (test code = Globulin) 3.2 2.7-4.2 [facility] ADYPP2712-06-27 11:06:00 Test Item Value Reference Range Interpretation Comments A/G Ratio (test code = A/G Ratio) 0.8 1 0.7-1.6 [facility] [id number] 11:06:00 Test Item Value Reference Range Interpretation Comments Phosphorus (test code = Phosphorus) 2.7 2.5-4.5 [facility] [id number] 11:06:00 Test Item Value Reference Range Interpretation Comments Magnesium Lvl (test code = Magnesium 2.3 1.8-2.4 Lvl) [facility] [id number] 11:06:00 Test Item Value Reference Range Interpretation Comments Vitamin D, 25-OH, Total (test code = 28 Vitamin D, 25-OH, Total) [facility] HospitalLyittgtZVKZNQWMNR7310-38-25 11:06:00 Test Item Value Reference Range Interpretation Comments RBC Morph (test code = Normal (07/22/21 5:06 RBC Morph) AM) [facility] HospitalVqgeedfYCANPABYWD1129-36-93 11:06:00 Test Item Value Reference Range Interpretation Comments Prealbumin (test code = Prealbumin) 17.6 18.0-45.0 [facility] HospitalRmgsjhxVDTLOU2784-08-76 11:06:00 Test Item Value Reference Range Interpretation Comments Trig (test code = Trig) 149 [facility] HospitalJnydpbePSYYVS6547-61-02 11:06:00 Test Item Value Reference Range Interpretation Comments Chol (test code = Chol) 174 [facility] HospitalUmphmucEPFOBP7144-04-11 11:06:00 Test Item Value Reference Range Interpretation Comments HDL (test code = HDL) 44 [facility] HospitalKxksnwmVBYGKI3912-92-96 11:06:00 Test Item Value Reference Range Interpretation Comments CHD Risk (test code = CHD Risk) 3.95 1 3.90-5.80 [facility] HospitalGwrlyimFHLLQE8732-86-64 11:06:00 Test Item Value Reference Range Interpretation Comments LDL (Calculated) (test code = LDL 100 (Calculated)) [facility] HospitalLfhvxmvTESWLX9305-01-41 11:06:00 Test Item Value Reference Range Interpretation Comments VLDL (test code = VLDL) 30 1 [facility] MHOGSUIEF0924-76-58 11:06:00 Test Item Value Reference Range Interpretation Comments Hgb A1C (test code = Hgb A1C) 5.1 [facility] HospitalFansUn[facility] [id number] 11:06:00 Test Item Value Reference Range Interpretation Comments Total Protein (test code = Total 5.6 6.4-8.4 Protein) [facility]2022-02-12 11:06:00 Test Item Value Reference Range Interpretation Comments Albumin Lvl (test code = Albumin Lvl) 2.4 3.5-5.0 [facility]2022-02-12 11:06:00 Test Item Value Reference Range Interpretation Comments ALT (test code = ALT) 117 See_Comment [Auto mated message] The system which ge nerated this result transmit lupe reference range : <=65. The reference range was not used to interpr et this result as mercedes l/abnormal. [facility] [id number] 11:06:00 Test Item Value Reference Range Interpretation Comments AST (test code = AST) 79 See_Comment [Auto mated message] The system which ge nerated this result transmit lupe reference range : <=37. The reference range was not used to interpr et this result as mercedes l/abnormal. [facility] [id number] 11:06:00 Test Item Value Reference Range Interpretation Comments Alk Phos (test code = Alk Phos) 86 39-136 [facility] [id number] 11:06:00 Test Item Value Reference Range Interpretation Comments Bili Total (test code = Bili Total) 0.3 0.2-1.3 [facility] [id number] 11:06:00 Test Item Value Reference Range Interpretation Comments B/C Ratio (test code = B/C Ratio) 52 1 6-25 [facility] [id number] 11:06:00 Test Item Value Reference Range Interpretation Comments Globulin (test code = Globulin) 3.2 2.7-4.2 [facility] [id number] 11:06:00 Test Item Value Reference Range Interpretation Comments A/G Ratio (test code = A/G Ratio) 0.8 1 0.7-1.6 [facility] [id number] 11:06:00 Test Item Value Reference Range Interpretation Comments Phosphorus (test code = Phosphorus) 2.7 2.5-4.5 [facility] [id number] 11:06:00 Test Item Value Reference Range Interpretation Comments Magnesium Lvl (test code = Magnesium 2.3 1.8-2.4 Lvl) [facility]annCHE[facility] [id number] 11:06:00 Test Item Value Reference Range Interpretation Comments Vitamin D, 25-OH, Total (test code = 28 Vitamin D, 25-OH, Total) [facility]woodVvuugdwTWZOAFKNDK5114-42-07 11:06:00 Test Item Value Reference Range Interpretation Comments RBC Morph (test code = Normal (07/22/21 5:06 RBC Morph) AM) [facility] HospitalZytmdgiDQVACJBXBY7048-81-81 11:06:00 Test Item Value Reference Range Interpretation Comments Prealbumin (test code = Prealbumin) 17.6 18.0-45.0 [facility] KingwoodWahhbjgJCTUND4368-63-19 11:06:00 Test Item Value Reference Range Interpretation Comments Trig (test code = Trig) 149 [facility]woodYunujldJYERNP0983-98-08 11:06:00 Test Item Value Reference Range Interpretation Comments Chol (test code = Chol) 174 [facility]woodAzeonvvERDQMO6604-15-43 11:06:00 Test Item Value Reference Range Interpretation Comments HDL (test code = HDL) 44 [facility]woodHzblvzrSDETXK8336-65-29 11:06:00 Test Item Value Reference Range Interpretation Comments CHD Risk (test code = CHD Risk) 3.95 1 3.90-5.80 [facility]woodUmwuawqWUZARQ3143-81-23 11:06:00 Test Item Value Reference Range Interpretation Comments LDL (Calculated) (test code = LDL 100 (Calculated)) [facility]woodQjkcxogSTERZY5199-37-37 11:06:00 Test Item Value Reference Range Interpretation Comments VLDL (test code = VLDL) 30 1 [facility]woodannSPECIAL XHYAJUQFX9499-29-81 11:06:00 Test Item Value Reference Range Interpretation Comments Hgb A1C (test code = Hgb A1C) 5.1 [facility] (COVID-19) RNA [Presence] in Respiratory specimen by ALEJANDRO with probe mkbtgaldk0874-00-16 15:52:03 Test Item Value Reference Range Interpretation Comments SARS-CoV-2 (COVID-19) RNA Not detected Not-Detected [Presence] in Respiratory specimen by ALEJANDRO with probe detection (test code = 00662-4) 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 (test code = 14127-6) Whether the patient has symptoms related to condition of interest (test code = 30804-7) Patient was hospitalized because of this condition (test code = 61418-6) Whether the patient was admitted to intensive care unit (ICU) for condition of interest (test code = 41235-7) Whether patient resides in a congregate care setting (test code = 32642-4) IMCHA RICHARDSSARS-CoV-2 (COVID-19) RNA [Presence] in Respiratory specimen by ALEJANDRO with probe izjyezqms9395-59-14 20:01:01 Test Item Value Reference Range Interpretation Comments SARS-CoV-2 (COVID-19) RNA Not detected Not-Detected [Presence] in Respiratory specimen by ALEJANDRO with probe detection (test code = 27123-7) 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 (test code = 44540-2) Whether the patient has symptoms related to condition of interest (test code = 09033-0) Patient was hospitalized because of this condition (test code = 32385-2) Whether the patient was admitted to intensive care unit (ICU) for condition of interest (test code = 64309-4) Whether patient resides in a congregate care setting (test code = 02300-6) MICHA RICHARDSSARS-CoV-2 (COVID-19) RNA [Presence] in Respiratory specimen by ALEJANDRO with probe vtcufeppz9081-07-44 20:02:01 Test Item Value Reference Range Interpretation Comments SARS-CoV-2 (COVID-19) RNA Not detected Not-Detected [Presence] in Respiratory specimen by ALEJANDRO with probe detection (test code = 01257-3) 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 (test code = 05109-9) Whether the patient has symptoms related to condition of interest (test code = 58050-6) Patient was hospitalized because of this condition (test code = 14808-3) Whether the patient was admitted to intensive care unit (ICU) for condition of interest (test code = 78399-3) Whether patient resides in a congregate care setting (test code = 27722-0) MICHA RICHARDSSARS-CoV-2 (COVID-19) RNA [Presence] in Respiratory specimen by ALEJANDRO with probe hgwujgtdk1752-17-65 04:09:45 Test Item Value Reference Range Interpretation Comments SARS-CoV-2 (COVID-19) RNA Not detected Not-Detected [Presence] in Respiratory specimen by ALEJANDRO with probe detection (test code = 93278-3) 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 (test code = 27071-1) Whether the patient has symptoms related to condition of interest (test code = 45006-4) Patient was hospitalized because of this condition (test code = 90583-3) Whether the patient was admitted to intensive care unit (ICU) for condition of interest (test code = 59041-9) Whether patient resides in a congregate care setting (test code = 17124-4) MICHA RELIGION XSWIHWIS-GqA-9 (COVID-19) RNA [Presence] in Respiratory specimen by ALEJANDRO with probe elqslhkjd2861-25-17 20:04:23 Test Item Value Reference Range Interpretation Comments SARS-CoV-2 (COVID-19) RNA Not detected Not-Detected [Presence] in Respiratory specimen by ALEJANDRO with probe detection (test code = 76332-9) 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 (test code = 39685-3) Whether the patient has symptoms related to condition of interest (test code = 71788-4) Patient was hospitalized because of this condition (test code = 29704-7) Whether the patient was admitted to intensive care unit (ICU) for condition of interest (test code = 54102-6) Whether patient resides in a congregate care setting (test code = 32152-4) MICHA RICHARDSSARS-CoV-2 (COVID-19) RNA [Presence] in Respiratory specimen by ALEJANDRO with probe pradrbahm5839-27-49 20:24:46 Test Item Value Reference Range Interpretation Comments SARS-CoV-2 (COVID-19) RNA Not detected Not-Detected [Presence] in Respiratory specimen by ALEJANDRO with probe detection (test code = 09071-9) 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 (test code = 42686-6) Whether the patient has symptoms related to condition of interest (test code = 18292-5) Patient was hospitalized because of this condition (test code = 23138-7) Whether the patient was admitted to intensive care unit (ICU) for condition of interest (test code = 19267-3) Whether patient resides in a congregate care setting (test code = 70001-3) MICHA [place] Coronavirus 2018 Udvicss6453-89-51 05:32:00 Test Item Value Reference Range Interpretation [...] personneltraine d in the procedures for the Kumar M2000 molecular diagnostic SARS-CoV-2 assa y in vitro. Novel Coronavirus 2018 Suvtpmy8844-84-45 05:31:00 Test Item Value Reference Range Interpretation [...] for the identification of SARS-CoV-2 RNA usingthe [employer] It In Person M2000 Sy stem under the FDA Emergen cy UseAuthorizatio n. The testing is perf ormed by personneltraine d in the procedures for the [employer] It [employer] Person M2000 molecular diagnostic SARS-CoV-2 assa y in vitro. C REACTIVE [id number] 18:18:00 Test Item Value Reference Range Interpretation Comments C REACTIVE PROTEIN (test code = < 0.2 mg/dL <0.9 CRP) COMPREHENSIVE METABOLIC [id number] 18:18:00 Test Item Value Reference Range Interpretation [...] RATE (test code = GFR) mL/mi n/1.73 k9Rzjgbjptz Range:Healthy Adults >90 mL/min/1.73 m2 For Chronic [...] TOTAL (test code = ALKP) CBC W/AUTO [id number] 18:12:00 Test Item Value Reference Range Interpretation [...] % 0-0 N code = NRBC) SED [id number] 18:12:00 Test Item Value Reference Range Interpretation Comments SED RATE (test code = SEDW) 17 mm/hr 0-20 N PROTHROMBIN [id number] 17:30:00 Test Item Value Reference Range Interpretation [...] v bal IS PATIENT ON ANTICOAGULANTS ? PRas Lab been notified if Patient is on Heparin Drip? NOIf Yes, orderCBC, OCCULT BLOOD, PT every other day NTHROMBOPLASTIN TIME [id number] 17:30:00 Test Item Value Reference Range Interpretation Comments PTT ACTIVATED (test code = APTT) 32.3 secs 24.9-37.0 N IS PATIENT ON ANTICOAGULANTS ? PRas Lab been notified if Patient is on [...] % 0-0 N code = NRBC) SED [id number] 17:12:00 Test Item Value Reference Range Interpretation Comments SED RATE (test code = SEDW) mm/hr 0-20 SARS-CoV-2 (COVID-19) RNA [Presence] in Respiratory specimen by ALEJANDRO with probe pmdonmdfk6340-28-24 19:39:45 Test Item Value Reference Range Interpretation Comments SARS-CoV-2 (COVID-19) RNA Not detected Not-Detected [Presence] in Respiratory specimen by ALEJANDRO with probe detection (test code = 21093-5) 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 (test code = 64761-5) Whether the patient has symptoms related to condition of interest (test code = 75804-9) Patient was hospitalized because of this condition (test code = 26791-1) Whether the patient was admitted to intensive care unit (ICU) for condition of interest (test code = 77915-0) Whether patient resides in a congregate care setting (test code = 65912-8) MICHA KNUTSONRS-CoV-2 (COVID-19) RNA [Presence] in Respiratory specimen by ALEJANDRO with probe ngdyhhmvm3572-06-78 22:57:40 Test Item Value Reference Range Interpretation Comments SARS-CoV-2 (COVID-19) RNA Not detected Not-Detected [Presence] in Respiratory specimen by ALEJANDRO with probe detection (test code = 36807-5) MICHA KNUTSONRS-CoV-2 (COVID-19) RNA [Presence] in Respiratory specimen by ALEJANDRO with probe zbieafvrf2856-27-65 06:01:55 Test Item Value Reference Range Interpretation Comments SARS-CoV-2 (COVID-19) RNA Not detected Not-Detected [Presence] in Respiratory specimen by ALEJANDRO with probe detection (test code = 03547-3) MICHA RICHARDSSARS-CoV-2 (COVID-19) RNA [Presence] in Respiratory specimen by ALEJANDRO with probe kyeitpvno0461-30-61 23:06:10 Test Item Value Reference Range Interpretation Comments SARS-CoV-2 (COVID-19) RNA Not detected Not-Detected [Presence] in Respiratory specimen by ALEJANDRO with probe detection (test code = 44752-9) MICHA MARTINEZ CT LOWER EXTRM W/O C [id number] 16:09:00 [facility] 1960 Sex: F Patient Name: AYAH VARGAS Unit No: [id number] EXAMS: CPT CODE: [id number] [place] LOWER EXTRM W/[place] [address] [place] OF THE LEFT PROXIMAL FEMUR AND HIP WITH SAGITTAL AND CORONAL RECONSTRUCTIONS DIAGNOSIS: There is a comminuted fracture extending from the femoral neck, intertrochanteric, subtrochanteric and into the proximal diaphysis. Avulsion of the lesser trochanter as noted. Internal fixation is present. There is new bone formation with minimal immature bridging on the proximal end of thefracture posteriorly. This comprises less than 5% of the surface area. There is periosteal new bone formation distally without bony bridging. No healing is seen through the long oblique portion of the fracture. COMMENT: COMPARISON: No prior exams available. Scans were performed with thin sections and reconstructions were obtained. CT radiation dose optimization is achieved for this examination by theuse of a CT protocol in accordance with ACR practice standards and adherence to support service tech's recommendations. Minimal healing of the proximal femoral fracture is seen. Periosteal new bone formation is present. at 1609 Reported and signed by: Charles Perez MD CC: Antwan Nguyen MD Technologist: RT Mac(R) CTDI: DLP: Trnscrpt: 05/27/2020 (9128) t.SDR.JCL [facility] NAME: AYAH VARGASHAM [address] [place] [address] PHYS: BRIMA. - Antwan Nguyen MD : 1960 AGE: 60 SEX: F [place] [address] LOC: Y.RAD PHONE #: [phone] EXAM DATE: 05/27/2020 STATUS: REG CLI FAX #:[phone] RAD #: [id number] D/C DT PAGE 1 Signed Report Patient Name: AYAH VARGAS Unit No: [id number] EXAMS: CPT CODE: [id number] CT LOWER EXTRM W/[place] [address] (Continued) Orig Print D/T: S: 05/27/2020 (1613) [facility] NAME: AYAH VARGAS [address] [facility] PHYS: BRIMA. - Antwan Nguyen MD : 1960 AGE: 60 SEX: F [place] [address] LOC: Y.RAD PHONE #: [phone] EXAM DATE: 05/27/2020 STATUS: REG CLI FAX #: [phone] RAD #: [id number] D/C DT PAGE 2 Signed ReportBASIC METABOLIC [id number] 06:37:00 Test Item Value Reference Range Interpretation [...] RATE (test code = GFR) mL/mi n/1.73 m6Ztduvqcdh Range:Healthy Adults >90 mL/min/1.73 m2 For Chronic Kidney Disease: Stage II Mild Decrease i n GFR 60-90 Stage III Moderate Decrea se in GFR 30-59 St age IV Severe Decre ase in GFR 15-29 St age V Kidney Failur e <15 CREATININE (test code 0.76 mg/dL 0.55-1.30 N = CREAT) CALCIUM (test code = 8.7 mg/dL 8.2-10.1 N CA) CBC W/AUTO [id number] 06:01:00 Test Item Value Reference Range Interpretation [...] 0-0 N code = NRBC) ACUTE HEPATITIS [id number] 21:48:00 Test Item Value Reference Range Interpretation [...] NONREACTIVE NONREACTIVE DONE AT: [facility] = HIV1AB) [facility] [address] [facility], [place] [address]Done by [employer] 4th Gen HIV Ag/Ab C ombo Screen ACUTE HEPATITIS [id number] 21:48:00 Test Item Value Reference Range Interpretation [...] 1 2 (test NONREACTIVE NONREACTIVE Done by [facility] code = SRK60XC) 4th Gen HIV Ag/Ab Combo Screen ACUTE HEPATITIS [id number] 21:46:00 Test Item Value Reference Range Interpretation [...] (test code = HIV1AB) NONREACTIVE ACUTE HEPATITIS [id number] 21:46:00 Test Item Value Reference Range Interpretation [...] AB HIV 1 2 (test code = PSZ08KZ) NONREACTIVE ACUTE HEPATITIS [id number] 21:45:00 Test Item Value Reference Range Interpretation [...] (test code = HIV1AB) NONREACTIVE ACUTE HEPATITIS [id number] 21:44:00 Test Item Value Reference Range Interpretation [...] AB HIV 1 2 (test code = ECU32FJ) NONREACTIVE ACUTE HEPATITIS [id number] 21:25:00 Test Item Value Reference Range Interpretation [...] (test code = HIV1AB) NONREACTIVE ACUTE HEPATITIS [id number] 21:24:00 Test Item Value Reference Range Interpretation [...] AB HIV 1 2 (test code = PDO45RM) NONREACTIVE COVID 19 Asymptomatic IH [id number] 18:48:00 Test Item Value Reference Range Interpretation Comments COVID 19 Asymptomatic IH AG (test NEGATIVE NEGATIVE code = COVNONPUIAG) CBC W/AUTO [id number] 18:32:00 Test Item Value Reference Range Interpretation [...] % 0-0 N code = NRBC) SED [id number] 18:32:00 Test Item Value Reference Range Interpretation Comments SED RATE (test code = SEDW) 20 mm/hr 0-20 N COMPREHENSIVE METABOLIC [id number] 18:05:00 Test Item Value Reference Range Interpretation [...] RATE (test code = GFR) mL/mi n/1.73 k9Ksszggguc Range:Healthy Adults >90 mL/min/1.73 m2 For Chronic [...] H TOTAL (test code = ALKP) PROTHROMBIN [id number] 17:20:00 Test Item Value Reference Range Interpretation [...] Patient is on Heparin Drip? NOTHROMBOPLASTIN TIME [id number] 17:20:00 Test Item Value Reference Range Interpretation Comments PTT ACTIVATED (test code = APTT) 30.8 secs 24.9-37.0 N IS PATIENT ON ANTICOAGULANTS ? PRas Lab been notified if Patient is on Heparin Drip? NOCBC W/AUTO [id number] 17:06:00 Test Item Value Reference Range Interpretation [...] % 0-0 N code = NRBC) SED [id number] 17:06:00 Test Item Value Reference Range Interpretation Comments SED RATE (test code = SEDW) mm/hr 0-20 SARS-CoV-2 (COVID-19) RNA [Presence] in Respiratory specimen by ALEJANDRO with probe [id number] 03:45:06 Test Item Value Reference Range Interpretation Comments SARS-CoV-2 (COVID-19) RNA Not detected Not-Detected [Presence] in Respiratory specimen by ALEJANDRO with probe detection (test code = 06758-8) MICHA RICHARDSSARS-CoV-2 (COVID-19) RNA [Presence] in Respiratory specimen by ALEJANDRO with probe [id number] 14:33:17 Test Item Value Reference Range Interpretation Comments SARS-CoV-2 (COVID-19) RNA Not detected Not-Detected [Presence] in Respiratory specimen by ALEJANDRO with probe detection (test code = 27307-1) MICHA CORTÉS [id number] 18:23:00 Test Item Value Reference Range Interpretation Comments Basophils # (test code 0.1 See_Comment [Aut omated message] The = Basophils #) system which generated this result tra nsmitted reference range : <=0.2. The reference r patricio was not used to int erpret this result as normal/abnormal . [facility] SouthMjqsgczNIDEJNRRMB0047-32-76 18:23:00 Test Item Value Reference Range Interpretation Comments Basophils (test code = 0.6 See_Comment [Aut omated message] The Basophils) system which ge nerated this result tra nsmitted reference range : <=1.0. The reference r patricio was not used to int erpret this result as normal/abnormal . [facility] SouthYzueoijYMAKQRMIHT5035-03-07 18:23:00 Test Item Value Reference Range Interpretation Comments Lymphocytes # (test code = Lymphocytes 0.5 1.0-5.5 #) [facility] SouthVwavgmsIMHJECKQOW5637-57-71 18:23:00 Test Item Value Reference Range Interpretation Comments Segs-Bands # (test code = Segs-Bands #) 7.2 1.5-8.1 [facility] SouthCzvibnyZAAYAUPRAS2860-50-19 18:23:00 Test Item Value Reference Range Interpretation Comments Monocytes # (test code 0.4 See_Comment [Aut omated message] The = Monocytes #) system which generated this result tra nsmitted reference range : <=0.8. The reference r patricio was not used to int erpret this result as normal/abnormal . [facility] SouthQcearwoFIDZELBPEY0657-40-44 18:23:00 Test Item Value Reference Range Interpretation Comments Eosinophils (test code = 0.2 See_Comment [A utomated message] The Eosinophils) system which ge nerated this result tra nsmitted reference range : <=4.0. The reference r patricio was not used to int erpret this result as normal/abnormal . [facility] SouthHarhkgdOOLXGNLFNE5580-86-15 18:23:00 Test Item Value Reference Range Interpretation Comments Lymphocytes (test code = Lymphocytes) 6.6 20.0-40.0 [facility] SouthDduueluEIJMEMLPAT2845-28-27 18:23:00 Test Item Value Reference Range Interpretation Comments Segs (test code = Segs) 88.0 45.0-75.0 [facility] SouthDeordffAOLWEEGEWN2700-58-26 18:23:00 Test Item Value Reference Range Interpretation Comments Monocytes (test code = Monocytes) 4.6 2.0-12.0 [facility] SouthNfsjrecSCNOKYQZXM9330-39-77 18:23:00 Test Item Value Reference Range Interpretation Comments Hgb (test code = Hgb) 10.4 12.0-16.0 [facility] SouthIvzxezpZDQHBJBPFD3040-99-06 18:23:00 Test Item Value Reference Range Interpretation Comments WBC (test code = WBC) 8.2 3.7-10.4 [facility] SouthSwtsjlePGLEFGFYLE1931-49-46 18:23:00 Test Item Value Reference Range Interpretation Comments RBC (test code = RBC) 4.15 4.20-5.40 [facility] SouthThlxwdcMHFOSTDSJR7102-39-34 18:23:00 Test Item Value Reference Range Interpretation Comments MCHC (test code = MCHC) 31.4 32.0-36.0 [facility] SouthOpusokoYCARARYOKQ3774-14-43 18:23:00 Test Item Value Reference Range Interpretation Comments MCV (test code = MCV) 80.0 80.0-98.0 [facility] SouthMfhyeuqKFDXPMHHTQ3612-35-34 18:23:00 Test Item Value Reference Range Interpretation Comments MCH (test code = MCH) 25.1 pg 27.0-31.0 [facility] SouthZzlqoanTISCACKDWU6183-24-94 18:23:00 Test Item Value Reference Range Interpretation Comments Hct (test code = Hct) 33.2 36.0-48.0 [facility] SouthNjaegxaFUBQZGIKQB1028-56-20 18:23:00 Test Item Value Reference Range Interpretation Comments RDW (test code = RDW) 19.7 11.5-14.5 [facility] SouthWnjblriSXUMYZGXEU1595-45-15 18:23:00 Test Item Value Reference Range Interpretation Comments MPV (test code = MPV) 7.9 7.4-10.4 [facility] SouthXhifrowOCTTBEWXWL6350-65-56 18:23:00 Test Item Value Reference Range Interpretation Comments Platelet (test code = Platelet) 280 133-450 [facility] SouthKorsolwCXNTWJFIOS1351-01-62 18:23:00 Test Item Value Reference Range Interpretation Comments Basophils # (test code 0.1 See_Comment [Aut omated message] The = Basophils #) system which generated this result tra nsmitted reference range : <=0.2. The reference r patricio was not used to int erpret this result as normal/abnormal . [facility] SouthEujeyoaRIARKSFNNU5248-51-59 18:23:00 Test Item Value Reference Range Interpretation Comments Basophils (test code = 0.6 See_Comment [Aut omated message] The Basophils) system which ge nerated this result tra nsmitted reference range : <=1.0. The reference r patricio was not used to int erpret this result as normal/abnormal . [facility] SouthKegtzjjIPYGWVQGBO0932-40-90 18:23:00 Test Item Value Reference Range Interpretation Comments Lymphocytes # (test code = Lymphocytes 0.5 1.0-5.5 #) [facility] SouthIdkxpoeMONRFJMKAX7454-83-91 18:23:00 Test Item Value Reference Range Interpretation Comments Segs-Bands # (test code = Segs-Bands #) 7.2 1.5-8.1 [facility] SouthPcemoxyMTGOVQIKMF4711-26-04 18:23:00 Test Item Value Reference Range Interpretation Comments Monocytes # (test code 0.4 See_Comment [Aut omated message] The = Monocytes #) system which generated this result tra nsmitted reference range : <=0.8. The reference r patricio was not used to int erpret this result as normal/abnormal . [place] [address]-03-03 18:23:00 Test Item Value Reference Range Interpretation Comments Eosinophils (test code = 0.2 See_Comment [A utomated message] The Eosinophils) system which ge nerated this result tra nsmitted reference range : <=4.0. The reference r patricio was not used to int erpret this result as normal/abnormal . [facility] SouthWdndyyiFTWIFVOXLX5687-20-30 18:23:00 Test Item Value Reference Range Interpretation Comments Lymphocytes (test code = Lymphocytes) 6.6 20.0-40.0 [facility] SouthLsrnsolHVWSHWWWWK0104-15-47 18:23:00 Test Item Value Reference Range Interpretation Comments Segs (test code = Segs) 88.0 45.0-75.0 [facility] SouthEhrtngzHFRAUWPEST7185-39-72 18:23:00 Test Item Value Reference Range Interpretation Comments Monocytes (test code = Monocytes) 4.6 2.0-12.0 [facility] SouthTbldyxpXKXWAHXKAE3750-50-90 18:23:00 Test Item Value Reference Range Interpretation Comments Hgb (test code = Hgb) 10.4 12.0-16.0 [facility] SouthLlhhcuhPMAJGCNEMJ4267-63-93 18:23:00 Test Item Value Reference Range Interpretation Comments WBC (test code = WBC) 8.2 3.7-10.4 [facility] SouthGzdjbswELCPWMOVKX9944-76-35 18:23:00 Test Item Value Reference Range Interpretation Comments RBC (test code = RBC) 4.15 4.20-5.40 [facility] SouthKqwknyjFFMGMSAEFK2623-58-28 18:23:00 Test Item Value Reference Range Interpretation Comments MCHC (test code = MCHC) 31.4 32.0-36.0 [facility] SouthYzvhtqeKFBKAWJOCA4921-30-20 18:23:00 Test Item Value Reference Range Interpretation Comments MCV (test code = MCV) 80.0 80.0-98.0 [facility] SouthOkqavrsFUQJIAZDPZ8939-44-27 18:23:00 Test Item Value Reference Range Interpretation Comments MCH (test code = MCH) 25.1 pg 27.0-31.0 [facility] SouthJertgycFJEDEGGJOA6185-72-27 18:23:00 Test Item Value Reference Range Interpretation Comments Hct (test code = Hct) 33.2 36.0-48.0 [facility] SouthUrbhslgOWIVOOVOQF1581-65-55 18:23:00 Test Item Value Reference Range Interpretation Comments RDW (test code = RDW) 19.7 11.5-14.5 [facility] SouthEhwboowJTBPWFUKFF3678-17-16 18:23:00 Test Item Value Reference Range Interpretation Comments MPV (test code = MPV) 7.9 7.4-10.4 [facility] SouthKiredpdMWIBLWGWUL8876-17-23 18:23:00 Test Item Value Reference Range Interpretation Comments Platelet (test code = Platelet) 280 133-450 [facility] SouthJpfwqbnOFMTUCVZGZ8053-55-04 18:23:00 Test Item Value Reference Range Interpretation Comments Basophils # (test code 0.1 See_Comment [Aut omated message] The = Basophils #) system which generated this result tra nsmitted reference range : <=0.2. The reference r patricio was not used to int erpret this result as normal/abnormal . [facility] SouthNgrnebyILFTGJVUFT4936-75-13 18:23:00 Test Item Value Reference Range Interpretation Comments Basophils (test code = 0.6 See_Comment [Aut omated message] The Basophils) system which ge nerated this result tra nsmitted reference range : <=1.0. The reference r patricio was not used to int erpret this result as normal/abnormal . [facility] [id number] 18:23:00 Test Item Value Reference Range Interpretation Comments Lymphocytes # (test code = Lymphocytes 0.5 1.0-5.5 #) [facility] SouthDpqkayeNNZCAGXHLO6780-47-83 18:23:00 Test Item Value Reference Range Interpretation Comments Segs-Bands # (test code = Segs-Bands #) 7.2 1.5-8.1 [facility] SouthBzwhlzqXKSVAPVELL1453-36-96 18:23:00 Test Item Value Reference Range Interpretation Comments Monocytes # (test code 0.4 See_Comment [Aut omated message] The = Monocytes #) system which generated this result tra nsmitted reference range : <=0.8. The reference r patricio was not used to int erpret this result as normal/abnormal . [facility] SouthQinlpsiLJTLSKYCLP3760-91-78 18:23:00 Test Item Value Reference Range Interpretation Comments Eosinophils (test code = 0.2 See_Comment [A utomated message] The Eosinophils) system which ge nerated this result tra nsmitted reference range : <=4.0. The reference r patricio was not used to int erpret this result as normal/abnormal . [facility] SouthUgkfxbvLKULLTMBRT0629-05-84 18:23:00 Test Item Value Reference Range Interpretation Comments Lymphocytes (test code = Lymphocytes) 6.6 20.0-40.0 [facility] [id number] 18:23:00 Test Item Value Reference Range Interpretation Comments Segs (test code = Segs) 88.0 45.0-75.0 [facility] SouthIpqadxhIOEWNUCVQG6377-91-22 18:23:00 Test Item Value Reference Range Interpretation Comments Monocytes (test code = Monocytes) 4.6 2.0-12.0 [facility] SouthAaecwcpXGCQQSQJTU1394-18-98 18:23:00 Test Item Value Reference Range Interpretation Comments Hgb (test code = Hgb) 10.4 12.0-16.0 [facility] SouthEccjytkXKLHPNTXYV5343-59-39 18:23:00 Test Item Value Reference Range Interpretation Comments WBC (test code = WBC) 8.2 3.7-10.4 [facility] SouthCqzrxlbGNONJZAVLB1536-00-98 18:23:00 Test Item Value Reference Range Interpretation Comments RBC (test code = RBC) 4.15 4.20-5.40 [facility] SouthMggcoebUZWQODQELT5987-84-53 18:23:00 Test Item Value Reference Range Interpretation Comments MCHC (test code = MCHC) 31.4 32.0-36.0 [facility] SouthJzlfqgsUIVAFDNDHS4066-20-12 18:23:00 Test Item Value Reference Range Interpretation Comments MCV (test code = MCV) 80.0 80.0-98.0 [facility] SouthHsusoghRFGBQCDJIC8833-10-82 18:23:00 Test Item Value Reference Range Interpretation Comments MCH (test code = MCH) 25.1 pg 27.0-31.0 [facility] SouthGthggvbWLNDRGNTEM2254-22-94 18:23:00 Test Item Value Reference Range Interpretation Comments Hct (test code = Hct) 33.2 36.0-48.0 [facility] SouthAlwtbehOHJPVMOAFQ5677-11-62 18:23:00 Test Item Value Reference Range Interpretation Comments RDW (test code = RDW) 19.7 11.5-14.5 [facility] SouthWwlasgyKSZHGDOQJS0879-59-98 18:23:00 Test Item Value Reference Range Interpretation Comments MPV (test code = MPV) 7.9 7.4-10.4 [facility] SouthUjkklcaGRNCNNJYZR0110-77-82 18:23:00 Test Item Value Reference Range Interpretation Comments Platelet (test code = Platelet) 280 133-450 [facility] [employer] [id number] 11:50:00 Test Item Value Reference Range Interpretation Comments Antibody Scrn (test Negative (02/14/16 6:50 code = Antibody Scrn) AM) [facility] [employer] [id number] 11:50:00 Test Item Value Reference Range Interpretation Comments ABO/Rh (test code = ABO/Rh) O POS [facility] [employer] [id number] 11:50:00 Test Item Value Reference Range Interpretation Comments eGFR (test code = eGFR) 84 [facility] [employer] [id number] 11:50:00 Test Item Value Reference Range Interpretation Comments Glucose Lvl (test code = Glucose Lvl) 76 70-99 [facility] [employer] [id number] 11:50:00 Test Item Value Reference Range Interpretation Comments AGAP (test code = AGAP) 16.0 10.0-20.0 [facility] [employer] [id number] 11:50:00 Test Item Value Reference Range Interpretation Comments Calcium Lvl (test code = Calcium Lvl) 8.2 8.5-10.5 [facility] [employer] [id number] 11:50:00 Test Item Value Reference Range Interpretation Comments CO2 (test code = CO2) 26 24-32 [facility] [employer] [id number] 11:50:00 Test Item Value Reference Range Interpretation Comments Creatinine Lvl (test code = Creatinine 0.79 0.50-1.40 Lvl) [facility] [employer] [id number] 11:50:00 Test Item Value Reference Range Interpretation Comments Potassium Lvl (test code = Potassium 4.0 3.5-5.1 Lvl) [facility] [employer] [id number] 11:50:00 Test Item Value Reference Range Interpretation Comments BUN (test code = BUN) 16 7-22 [facility] [employer] [id number] 11:50:00 Test Item Value Reference Range Interpretation Comments Sodium Lvl (test code = Sodium Lvl) 146 135-145 [facility] [employer] [id number] 11:50:00 Test Item Value Reference Range Interpretation Comments Chloride Lvl (test code = Chloride Lvl) 108 95-109 [facility] KingwoodJfcsynyIFPXYWDFMF9163-42-25 11:50:00 Test Item Value Reference Range Interpretation Comments Lymphocytes # (test code = Lymphocytes 2.9 1.0-5.5 #) [facility] SouthPuzoiviWKHJYCBIHR9308-74-64 11:50:00 Test Item Value Reference Range Interpretation Comments Segs-Bands # (test code = Segs-Bands #) 3.4 1.5-8.1 [facility] [id number] 11:50:00 Test Item Value Reference Range Interpretation Comments Basophils (test code = 1.1 See_Comment [Aut omated message] The Basophils) system which ge nerated this result tra nsmitted reference range : <=1.0. The reference r patricio was not used to int erpret this result as normal/abnormal . [facility] SouthFpxiborXMHTPDYOMO1813-22-01 11:50:00 Test Item Value Reference Range Interpretation Comments Eosinophils (test code = 2.1 See_Comment [A utomated message] The Eosinophils) system which ge nerated this result tra nsmitted reference range : <=4.0. The reference r patricio was not used to int erpret this result as normal/abnormal . [facility] SouthZwkxnwvWVDWNKKTEM0197-37-10 11:50:00 Test Item Value Reference Range Interpretation Comments Anisocyte (test code = 1+ *ABN*(02/14/16 6:50 Anisocyte) AM) [facility] SouthWxqsfcnYKYCZELIMT8668-12-02 11:50:00 Test Item Value Reference Range Interpretation Comments Basophils # (test code 0.1 See_Comment [Aut omated message] The = Basophils #) system which generated this result tra nsmitted reference range : <=0.2. The reference r patricio was not used to int erpret this result as normal/abnormal . [facility] SouthV[id number] 11:50:00 Test Item Value Reference Range Interpretation Comments Eosinophils # (test code 0.2 See_Comment [A utomated message] The = Eosinophils #) system whic h generated this result tra nsmitted reference range : <=0.5. The reference r patricio was not used to int erpret this result as normal/abnormal . [facility] SouthAfqekgqOSJBRXDPSP3798-20-12 11:50:00 Test Item Value Reference Range Interpretation Comments Monocytes # (test code 0.7 See_Comment [Aut omated message] The = Monocytes #) system which generated this result tra nsmitted reference range : <=0.8. The reference r patricio was not used to int erpret this result as normal/abnormal . [facility] SouthEcybkkaSHRHHWRXKN5905-14-63 11:50:00 Test Item Value Reference Range Interpretation Comments Monocytes (test code = Monocytes) 9.5 2.0-12.0 [facility] SouthAbdlzikLZAWMKTTLR6209-01-53 11:50:00 Test Item Value Reference Range Interpretation Comments Lymphocytes (test code = Lymphocytes) 39.6 20.0-40.0 [facility] SouthWvhqgjyOWFXWBREBI4598-77-21 11:50:00 Test Item Value Reference Range Interpretation Comments Segs (test code = Segs) 47.7 45.0-75.0 [facility] SouthNzfptuiETJAXJBQQG3421-57-53 11:50:00 Test Item Value Reference Range Interpretation Comments MPV (test code = MPV) 7.2 7.4-10.4 [facility] SouthXiwjogxWQFLVXUDTU3906-65-27 11:50:00 Test Item Value Reference Range Interpretation Comments Platelet (test code = Platelet) 301 133-450 [facility] SouthRmivfooKSLOFTZGVI0416-92-65 11:50:00 Test Item Value Reference Range Interpretation Comments RDW (test code = RDW) 22.6 11.5-14.5 [facility] SouthQbtldsfRZAOTIMVGU5753-19-87 11:50:00 Test Item Value Reference Range Interpretation Comments Hct (test code = Hct) 30.2 36.0-48.0 [facility] SouthBfhcyqsHXOUOMFCYZ3339-11-44 11:50:00 Test Item Value Reference Range Interpretation Comments MCV (test code = MCV) 80.7 80.0-98.0 [facility] SouthUvlgragHZMKYHOQNE2324-64-28 11:50:00 Test Item Value Reference Range Interpretation Comments MCH (test code = MCH) 25.3 pg 27.0-31.0 [facility] SouthTjdfakbQPNQRAYIWO6185-82-36 11:50:00 Test Item Value Reference Range Interpretation Comments MCHC (test code = MCHC) 31.3 32.0-36.0 [facility] SouthAcbqeyzEKTPLJRYDN9256-37-46 11:50:00 Test Item Value Reference Range Interpretation Comments WBC (test code = WBC) 7.2 3.7-10.4 [facility] SouthBtfkziyABIHJXICCX9854-26-06 11:50:00 Test Item Value Reference Range Interpretation Comments RBC (test code = RBC) 3.74 4.20-5.40 [facility]KrivkmnSNSZWHGYPF9905-66-24 11:50:00 Test Item Value Reference Range Interpretation Comments Hgb (test code = Hgb) 9.5 12.0-16.0 [facility] [id number] 11:50:00 Test Item Value Reference Range Interpretation Comments Antibody Scrn (test Negative (02/14/16 6:50 code = Antibody Scrn) AM) [facility]In[facility] NetworkNOR[facility] [id number] 11:50:00 Test Item Value Reference Range Interpretation Comments ABO/Rh (test code = ABO/Rh) O POS [facility] [id number] 11:50:00 Test Item Value Reference Range Interpretation Comments eGFR (test code = eGFR) 84 [facility] KingwoodInStore Audio NetworkATRIUM HEALTH [id number] 11:50:00 Test Item Value Reference Range Interpretation Comments Glucose Lvl (test code = Glucose Lvl) 76 70-99 [facility] [id number] 11:50:00 Test Item Value Reference Range Interpretation Comments AGAP (test code = AGAP) 16.0 10.0-20.0 [facility] [id number] 11:50:00 Test Item Value Reference Range Interpretation Comments Calcium Lvl (test code = Calcium Lvl) 8.2 8.5-10.5 [facility] [id number] 11:50:00 Test Item Value Reference Range Interpretation Comments CO2 (test code = CO2) 26 24-32 [facility] [id number] 11:50:00 Test Item Value Reference Range Interpretation Comments Creatinine Lvl (test code = Creatinine 0.79 0.50-1.40 Lvl) [facility] [id number] 11:50:00 Test Item Value Reference Range Interpretation Comments Potassium Lvl (test code = Potassium 4.0 3.5-5.1 Lvl) [facility] [id number] 11:50:00 Test Item Value Reference Range Interpretation Comments BUN (test code = BUN) 16 7-22 [facility] [id number] 11:50:00 Test Item Value Reference Range Interpretation Comments Sodium Lvl (test code = Sodium Lvl) 146 135-145 [facility]2016-09-06 11:50:00 Test Item Value Reference Range Interpretation Comments Chloride Lvl (test code = Chloride Lvl) 108 95-109 [facility] SouthHptcoadAKDQZOITWF4299-14-79 11:50:00 Test Item Value Reference Range Interpretation Comments Lymphocytes # (test code = Lymphocytes 2.9 1.0-5.5 #) [facility] SouthIqxwnfoKQCKBVYITZ3121-61-98 11:50:00 Test Item Value Reference Range Interpretation Comments Segs-Bands # (test code = Segs-Bands #) 3.4 1.5-8.1 [facility] SouthXucwrkyNPMUTPECDY6412-30-24 11:50:00 Test Item Value Reference Range Interpretation Comments Basophils (test code = 1.1 See_Comment [Aut omated message] The Basophils) system which ge nerated this result tra nsmitted reference range : <=1.0. The reference r patricio was not used to int erpret this result as normal/abnormal . [facility] Sou[id number] 11:50:00 Test Item Value Reference Range Interpretation Comments Eosinophils (test code = 2.1 See_Comment [A utomated message] The Eosinophils) system which ge nerated this result tra nsmitted reference range : <=4.0. The reference r patricio was not used to int erpret this result as normal/abnormal . [facility] SouthWsncxvmWGYXILOQIM8170-95-22 11:50:00 Test Item Value Reference Range Interpretation Comments Anisocyte (test code = 1+ *ABN*(02/14/16 6:50 Anisocyte) AM) [facility] SouthDcqnztxJOEOJPVRAQ0072-67-78 11:50:00 Test Item Value Reference Range Interpretation Comments Basophils # (test code 0.1 See_Comment [Aut omated message] The = Basophils #) system which generated this result tra nsmitted reference range : <=0.2. The reference r patricio was not used to int erpret this result as normal/abnormal . [facility] [id number] 11:50:00 Test Item Value Reference Range Interpretation Comments Eosinophils # (test code 0.2 See_Comment [A utomated message] The = Eosinophils #) system whic h generated this result tra nsmitted reference range : <=0.5. The reference r patricio was not used to int erpret this result as normal/abnormal . [place] [id number] 11:50:00 Test Item Value Reference Range Interpretation Comments Monocytes # (test code 0.7 See_Comment [Aut omated message] The = Monocytes #) system which generated this result tra nsmitted reference range : <=0.8. The reference r patricio was not used to int erpret this result as normal/abnormal . [facility] SouthVryltfmQURVBQPIFM7204-29-33 11:50:00 Test Item Value Reference Range Interpretation Comments Monocytes (test code = Monocytes) 9.5 2.0-12.0 [facility] SouthMnzpvomJKBGLNRRUI0234-51-14 11:50:00 Test Item Value Reference Range Interpretation Comments Lymphocytes (test code = Lymphocytes) 39.6 20.0-40.0 [facility] SouthZgsripgXEAYIVYQUW1405-47-71 11:50:00 Test Item Value Reference Range Interpretation Comments Segs (test code = Segs) 47.7 45.0-75.0 [facility] SouthMarkjdbHSTATFJLBP0165-59-77 11:50:00 Test Item Value Reference Range Interpretation Comments MPV (test code = MPV) 7.2 7.4-10.4 [facility] SouthCfbczjdVPIEHKJZAU1396-21-22 11:50:00 Test Item Value Reference Range Interpretation Comments Platelet (test code = Platelet) 301 133-450 [facility] SouthByuufmoOSIBPODMYD5689-83-82 11:50:00 Test Item Value Reference Range Interpretation Comments RDW (test code = RDW) 22.6 11.5-14.5 [facility] SouthWiihgkfMXBXNEICHQ1527-21-86 11:50:00 Test Item Value Reference Range Interpretation Comments Hct (test code = Hct) 30.2 36.0-48.0 [facility] SouthRubmkwvIWPNTXZDKZ8847-64-20 11:50:00 Test Item Value Reference Range Interpretation Comments MCV (test code = MCV) 80.7 80.0-98.0 [facility] SouthTrxhdcmPLEHRLWDRG9223-41-47 11:50:00 Test Item Value Reference Range Interpretation Comments MCH (test code = MCH) 25.3 pg 27.0-31.0 [facility] SouthYhavuyoLEBSUOMIMA2609-62-24 11:50:00 Test Item Value Reference Range Interpretation Comments MCHC (test code = MCHC) 31.3 32.0-36.0 [facility] SouthZvfnbjaRHMIQOCVTM5347-96-66 11:50:00 Test Item Value Reference Range Interpretation Comments WBC (test code = WBC) 7.2 3.7-10.4 [facility] KingwoodQgdteoeIUIDOXWNNY8359-11-20 11:50:00 Test Item Value Reference Range Interpretation Comments RBC (test code = RBC) 3.74 4.20-5.40 [facility] KingwoodAdxayqlSRFPUETMFJ9568-36-68 11:50:00 Test Item Value Reference Range Interpretation Comments Hgb (test code = Hgb) 9.5 12.0-16.0 [facility] [employer] [id number] 11:50:00 Test Item Value Reference Range Interpretation Comments Antibody Scrn (test Negative (02/14/16 6:50 code = Antibody Scrn) AM) [facility] [employer] [id number] 11:50:00 Test Item Value Reference Range Interpretation Comments ABO/Rh (test code = ABO/Rh) O POS [facility] [employer] [id number] 11:50:00 Test Item Value Reference Range Interpretation Comments eGFR (test code = eGFR) 84 [facility] [employer] [id number] 11:50:00 Test Item Value Reference Range Interpretation Comments Glucose Lvl (test code = Glucose Lvl) 76 70-99 [facility] [employer] [id number] 11:50:00 Test Item Value Reference Range Interpretation Comments AGAP (test code = AGAP) 16.0 10.0-20.0 [facility] [employer] [id number] 11:50:00 Test Item Value Reference Range Interpretation Comments Calcium Lvl (test code = Calcium Lvl) 8.2 8.5-10.5 [facility] [employer] [id number] 11:50:00 Test Item Value Reference Range Interpretation Comments CO2 (test code = CO2) 26 24-32 [facility] [employer] [id number] 11:50:00 Test Item Value Reference Range Interpretation Comments Creatinine Lvl (test code = Creatinine 0.79 0.50-1.40 Lvl) [facility] [employer] [id number] 11:50:00 Test Item Value Reference Range Interpretation Comments Potassium Lvl (test code = Potassium 4.0 3.5-5.1 Lvl) [facility] [employer] [id number] 11:50:00 Test Item Value Reference Range Interpretation Comments BUN (test code = BUN) 16 7- [facility]2016-09-06 11:50:00 Test Item Value Reference Range Interpretation Comments Sodium Lvl (test code = Sodium Lvl) 146 135-145 [facility]2016-09-06 11:50:00 Test Item Value Reference Range Interpretation Comments Chloride Lvl (test code = Chloride Lvl) 108 95-109 [facility] SouthWpwmistBTUCTDAJOB7544-37-35 11:50:00 Test Item Value Reference Range Interpretation Comments Lymphocytes # (test code = Lymphocytes 2.9 1.0-5.5 #) [facility] SouthKreyhdmKYPYMEVUMX1160-66-22 11:50:00 Test Item Value Reference Range Interpretation Comments Segs-Bands # (test code = Segs-Bands #) 3.4 1.5-8.1 [facility] SouthHadjralYFWRKWRTSA3190-86-88 11:50:00 Test Item Value Reference Range Interpretation Comments Basophils (test code = 1.1 See_Comment [Aut omated message] The Basophils) system which ge nerated this result tra nsmitted reference range : <=1.0. The reference r patricio was not used to int erpret this result as normal/abnormal . [facility] SouthQtyjstoQRLTXQLPCL7216-33-45 11:50:00 Test Item Value Reference Range Interpretation Comments Eosinophils (test code = 2.1 See_Comment [A utomated message] The Eosinophils) system which ge nerated this result tra nsmitted reference range : <=4.0. The reference r patricio was not used to int erpret this result as normal/abnormal . [facility] SouthTiscfnvWFYYRLVRFF5246-10-27 11:50:00 Test Item Value Reference Range Interpretation Comments Anisocyte (test code = 1+ *ABN*(02/14/16 6:50 Anisocyte) AM) [facility] SouthQeaycctPYEMUQQFNM3486-16-40 11:50:00 Test Item Value Reference Range Interpretation Comments Basophils # (test code 0.1 See_Comment [Aut omated message] The = Basophils #) system which generated this result tra nsmitted reference range : <=0.2. The reference r patricio was not used to int erpret this result as normal/abnormal . [facility] SouthYjtuovlJIZKUXRIZT6722-23-41 11:50:00 Test Item Value Reference Range Interpretation Comments Eosinophils # (test code 0.2 See_Comment [A utomated message] The = Eosinophils #) system whic h generated this result tra nsmitted reference range : <=0.5. The reference r patricio was not used to int erpret this result as normal/abnormal . [facility] SouthGmqzvwiQYDWIKEDWG9687-40-88 11:50:00 Test Item Value Reference Range Interpretation Comments Monocytes # (test code 0.7 See_Comment [Aut omated message] The = Monocytes #) system which generated this result tra nsmitted reference range : <=0.8. The reference r patricio was not used to int erpret this result as normal/abnormal . [facility] SouthBaaizdtLGQHTMELMP9361-15-26 11:50:00 Test Item Value Reference Range Interpretation Comments Monocytes (test code = Monocytes) 9.5 2.0-12.0 [facility] SouthFxewcgsTTZNBEIIDQ5919-63-90 11:50:00 Test Item Value Reference Range Interpretation Comments Lymphocytes (test code = Lymphocytes) 39.6 20.0-40.0 [facility] SouthRtwhlztMDCQFGIULX1056-37-10 11:50:00 Test Item Value Reference Range Interpretation Comments Segs (test code = Segs) 47.7 45.0-75.0 [facility] SouthHhxxyqsXKXMJMIVYI7096-09-84 11:50:00 Test Item Value Reference Range Interpretation Comments MPV (test code = MPV) 7.2 7.4-10.4 [facility] SouthOoamsofBOYBVEEMYG5814-14-41 11:50:00 Test Item Value Reference Range Interpretation Comments Platelet (test code = Platelet) 301 133-450 [facility] SouthOtpdzjpMTJGMFVKLB2906-56-92 11:50:00 Test Item Value Reference Range Interpretation Comments RDW (test code = RDW) 22.6 11.5-14.5 [facility] SouthZfxzlxgEZUTJJPKJQ1625-30-54 11:50:00 Test Item Value Reference Range Interpretation Comments Hct (test code = Hct) 30.2 36.0-48.0 [facility] SouthUsaodujDPNSHWJZKX5896-38-02 11:50:00 Test Item Value Reference Range Interpretation Comments MCV (test code = MCV) 80.7 80.0-98.0 [facility] SouthStjajkfWNRDJWCDKO7290-34-75 11:50:00 Test Item Value Reference Range Interpretation Comments MCH (test code = MCH) 25.3 pg 27.0-31.0 [facility] SouthOqbciukLVMSHXHZSP5847-83-66 11:50:00 Test Item Value Reference Range Interpretation Comments MCHC (test code = MCHC) 31.3 32.0-36.0 [facility] SouthTexshbbPMNDQFNFYD2241-19-05 11:50:00 Test Item Value Reference Range Interpretation Comments WBC (test code = WBC) 7.2 3.7-10.4 [facility] SouthHtskthrYXMYETJIMU1032-43-21 11:50:00 Test Item Value Reference Range Interpretation Comments RBC (test code = RBC) 3.74 4.20-5.40 [facility] SouthFianpgcNSFVALUNXQ2321-47-34 11:50:00 Test Item Value Reference Range Interpretation Comments Hgb (test code = Hgb) 9.5 12.0-16.0 [facility]inteAotbdusLZHGALQTG2327-87-91 08:37:00 Test Item Value Reference Range Interpretation Comments AGAP (test code = AGAP) 12.0 10.0-20.0 N [facility]inteSyvkcaoRVSEEOHRN0804-87-22 08:37:00 Test Item Value Reference Range Interpretation Comments B/C Ratio (test code = B/C Ratio) 13 6-25 N [facility] PointeVrdeaunLJBFFJXKE1476-04-41 08:37:00 Test Item Value Reference Range Interpretation Comments Globulin (test code = Globulin) 2.3 2.0-4.0 N [facility] PointeZnmcolrREBZUQNJJ6507-28-71 08:37:00 Test Item Value Reference Range Interpretation Comments A/G Ratio (test code = A/G Ratio) 1.3 0.7-1.6 N [facility] PointeYlehnqaZUTABYYTH1558-14-72 08:37:00 Test Item Value Reference Range Interpretation Comments Alk Phos (test code = Alk Phos) 93 39-136 N [facility] PointeLcxwxauHJQFZXUTW3565-52-02 08:37:00 Test Item Value Reference Range Interpretation Comments ALT (test code = ALT) 179 See_Comment H [Auto mated message] The system which ge nerated this result transmit lupe reference range : <=65. The reference range was not used to interpr et this result as mercedes l/abnormal. [facility] PointeVsgetajHGUDNOXLH3037-74-65 08:37:00 Test Item Value Reference Range Interpretation Comments Bili Total (test code = Bili Total) 0.5 0.2-1.3 N [facility] PointeHrsyewvZKVUNEZVE1539-24-65 08:37:00 Test Item Value Reference Range Interpretation Comments AST (test code = AST) 186 See_Comment H [Auto mated message] The system which ge nerated this result transmit lupe reference range : <=37. The reference range was not used to interpr et this result as mercedes l/abnormal. [facility] PointeVkrjdwqCBKESBZIK0720-69-41 08:37:00 Test Item Value Reference Range Interpretation Comments Sodium Lvl (test code = Sodium Lvl) 141 135-145 N [facility] PointeUukveqiORFAWNXQW0052-92-38 08:37:00 Test Item Value Reference Range Interpretation Comments Creatinine Lvl (test code = Creatinine 0.6 0.5-1.4 N Lvl) [facility] PointeCcuajpvIVOUIICIJ2694-62-60 08:37:00 Test Item Value Reference Range Interpretation Comments Glucose Lvl (test code = Glucose Lvl) 78 70-99 N [facility] PointeMgfddvlKMILQZRAA0014-68-64 08:37:00 Test Item Value Reference Range Interpretation Comments BUN (test code = BUN) 8 7-22 N [facility] PointeBjdxjtaBWHFJAGUU6405-03-65 08:37:00 Test Item Value Reference Range Interpretation Comments Total Protein (test code = Total 5.4 6.4-8.4 L Protein) [facility] PointeQwujalvMFUWBPICN0878-41-72 08:37:00 Test Item Value Reference Range Interpretation Comments Albumin Lvl (test code = Albumin Lvl) 3.1 3.5-5.0 L [facility] PointeMrqizamHXFBOQTBV6173-97-22 08:37:00 Test Item Value Reference Range Interpretation Comments Potassium Lvl (test code = Potassium 4.0 3.5-5.1 N Lvl) [facility] PointeKjyrapuQFISNEKYM5920-82-59 08:37:00 Test Item Value Reference Range Interpretation Comments Calcium Lvl (test code = Calcium Lvl) 8.1 8.5-10.5 L [facility] PointeItsjoetNJGBKRMTA8374-94-24 08:37:00 Test Item Value Reference Range Interpretation Comments Chloride Lvl (test code = Chloride Lvl) 104 95-109 N [facility] PointeOlsrbgvAECDAIIJY6103-48-93 08:37:00 Test Item Value Reference Range Interpretation Comments CO2 (test code = CO2) 29 24-32 N [facility] SouthHxwrryeHDTQTCXVBU0087-60-58 08:37:00 Test Item Value Reference Range Interpretation Comments Eosinophils # (test code 0.1 See_Comment N [A utomated message] The = Eosinophils #) system whic h generated this result tra nsmitted reference range : <=0.5. The reference r patricio was not used to int erpret this result as normal/abnormal . [facility] SouthIigsmcnLNXKJKTBGI3175-28-61 08:37:00 Test Item Value Reference Range Interpretation Comments Monocytes # (test code 0.5 See_Comment N [Aut omated message] The = Monocytes #) system which generated this result tra nsmitted reference range : <=0.8. The reference r patricio was not used to int erpret this result as normal/abnormal . [facility] SouthOrzvteqUKOFBVHCJZ0245-26-48 08:37:00 Test Item Value Reference Range Interpretation Comments Lymphocytes # (test code = Lymphocytes 0.8 1.0-5.5 L #) [facility] SouthTgrvbdpWNLPIEYQCY8732-34-17 08:37:00 Test Item Value Reference Range Interpretation Comments Basophils (test code = 0.1 See_Comment N [Aut omated message] The Basophils) system which ge nerated this result tra nsmitted reference range : <=1.0. The reference r patricio was not used to int erpret this result as normal/abnormal . [facility] SouthIotpjhzDEQMYUVTQX8733-62-37 08:37:00 Test Item Value Reference Range Interpretation Comments Segs-Bands # (test code = Segs-Bands #) 7.2 1.5-8.1 N [facility] SouthFnltxuuFKTSVUXYFC5472-22-20 08:37:00 Test Item Value Reference Range Interpretation Comments Segs (test code = Segs) 84.2 45.0-75.0 H [facility] SouthLfflgalJHQEAPWCNX7460-65-78 08:37:00 Test Item Value Reference Range Interpretation Comments Lymphocytes (test code = Lymphocytes) 8.8 20.0-40.0 L [facility] SouthVwflwxmMZYWRIQIWV6714-96-47 08:37:00 Test Item Value Reference Range Interpretation Comments Eosinophils (test code = 0.8 See_Comment N [A utomated message] The Eosinophils) system which ge nerated this result tra nsmitted reference range : <=4.0. The reference r patricio was not used to int erpret this result as normal/abnormal . [facility] SouthKupielrKMYNADTXPQ5679-40-47 08:37:00 Test Item Value Reference Range Interpretation Comments Monocytes (test code = Monocytes) 6.1 2.0-12.0 N [facility] SouthHvknjztTDCVSOKQLR5609-37-54 08:37:00 Test Item Value Reference Range Interpretation Comments Hct (test code = Hct) 30.4 36.0-48.0 L [facility] SouthMdgsumwNWFVSMCEJF8320-02-61 08:37:00 Test Item Value Reference Range Interpretation Comments MCHC (test code = MCHC) 32.7 32.0-36.0 N [facility] SouthYnuuaztPRBBJVYUJI1733-04-78 08:37:00 Test Item Value Reference Range Interpretation Comments RDW (test code = RDW) 15.9 11.5-14.5 H [facility] SouthTahcrnuVMZNQKAQFV0970-95-91 08:37:00 Test Item Value Reference Range Interpretation Comments MCH (test code = MCH) 28.3 pg 27.0-31.0 N [place] 894362-03-23 08:37:00 Test Item Value Reference Range Interpretation Comments MCV (test code = MCV) 86.5 81.0-99.0 N [facility] SouthHvxnhgjRSKLJTZXWH1641-58-20 08:37:00 Test Item Value Reference Range Interpretation Comments MPV (test code = MPV) 8.7 7.4-10.4 N [facility] SouthIjzwwxfYBTRQFXRPQ1667-45-84 08:37:00 Test Item Value Reference Range Interpretation Comments Platelet (test code = Platelet) 163 133-450 N [facility] SouthGclpgppHXNIMHVXBJ4302-40-04 08:37:00 Test Item Value Reference Range Interpretation Comments WBC (test code = WBC) 8.6 3.7-10.4 N [facility] SouthNinjwvvAOLNRHKOBM2165-84-38 08:37:00 Test Item Value Reference Range Interpretation Comments Hgb (test code = Hgb) 10.0 12.0-16.0 L [facility] SouthOmrgrqcQRLSMNLYOS9461-71-66 08:37:00 Test Item Value Reference Range Interpretation Comments RBC (test code = RBC) 3.52 4.20-5.40 L [facility] PointeLxatesmJBYQUXJVV0408-34-27 08:37:00 Test Item Value Reference Range Interpretation Comments AGAP (test code = AGAP) 12.0 10.0-20.0 N [facility]inteTusftmdBFHSHVBYG0840-22-41 08:37:00 Test Item Value Reference Range Interpretation Comments B/C Ratio (test code = B/C Ratio) 13 6-25 N [facility]woodWotdbdsBIDWTYFUG5203-97-81 08:37:00 Test Item Value Reference Range Interpretation Comments Globulin (test code = Globulin) 2.3 2.0-4.0 N [facility]woodXotcolzDAWAIQQCH0116-44-69 08:37:00 Test Item Value Reference Range Interpretation Comments A/G Ratio (test code = A/G Ratio) 1.3 0.7-1.6 N [facility]inteHixjdqeDCEEGOOOY8734-36-75 08:37:00 Test Item Value Reference Range Interpretation Comments Alk Phos (test code = Alk Phos) 93 39-136 N [facility]woodLerebqzGBVMPIRPN6224-45-57 08:37:00 Test Item Value Reference Range Interpretation Comments ALT (test code = ALT) 179 See_Comment H [Auto mated message] The system which ge nerated this result transmit lupe reference range : <=65. The reference range was not used to interpr et this result as mercedes l/abnormal. [facility] PointeDobncziQPRZGHJOU7597-62-44 08:37:00 Test Item Value Reference Range Interpretation Comments Bili Total (test code = Bili Total) 0.5 0.2-1.3 N [facility] PointeYittbmoHGGLZWFDQ4817-22-88 08:37:00 Test Item Value Reference Range Interpretation Comments AST (test code = AST) 186 See_Comment H [Auto mated message] The system which ge nerated this result transmit lupe reference range : <=37. The reference range was not used to interpr et this result as mercedes l/abnormal. [facility]woodWmlfxfoACPOGVIAK4063-54-77 08:37:00 Test Item Value Reference Range Interpretation Comments Sodium Lvl (test code = Sodium Lvl) 141 135-145 N [facility] PointeGunkxtkRYZDUJCTU2959-21-10 08:37:00 Test Item Value Reference Range Interpretation Comments Creatinine Lvl (test code = Creatinine 0.6 0.5-1.4 N Lvl) [facility] PointeYgqufxrHNESAHDLU9195-49-23 08:37:00 Test Item Value Reference Range Interpretation Comments Glucose Lvl (test code = Glucose Lvl) 78 70-99 N [facility]woodVpyfxqeFESOZTAKX1491-12-22 08:37:00 Test Item Value Reference Range Interpretation Comments BUN (test code = BUN) 8 7-22 N [facility] PointeKrftdmmFGUOUEIHJ0300-72-31 08:37:00 Test Item Value Reference Range Interpretation Comments Total Protein (test code = Total 5.4 6.4-8.4 L Protein) [facility] PointeUdoxdhpVOQHOLYIU6446-71-85 08:37:00 Test Item Value Reference Range Interpretation Comments Albumin Lvl (test code = Albumin Lvl) 3.1 3.5-5.0 L [facility] PointeFcmmhudRJNFVWLHF6792-30-24 08:37:00 Test Item Value Reference Range Interpretation Comments Potassium Lvl (test code = Potassium 4.0 3.5-5.1 N Lvl) [facility] PointeNbgunihFRQIXDWOG3721-93-07 08:37:00 Test Item Value Reference Range Interpretation Comments Calcium Lvl (test code = Calcium Lvl) 8.1 8.5-10.5 L [facility] PointeXgeiqypRJQMRHPVE6701-82-98 08:37:00 Test Item Value Reference Range Interpretation Comments Chloride Lvl (test code = Chloride Lvl) 104 95-109 N [facility] PointeZxcnupsFDDUYBWXK6313-48-90 08:37:00 Test Item Value Reference Range Interpretation Comments CO2 (test code = CO2) 29 24-32 N [facility] SouthXgcqqngAAFSLHDMRS0220-89-28 08:37:00 Test Item Value Reference Range Interpretation Comments Eosinophils # (test code 0.1 See_Comment N [A utomated message] The = Eosinophils #) system whic h generated this result tra nsmitted reference range : <=0.5. The reference r patricio was not used to int erpret this result as normal/abnormal . [facility] SouthLnxghwiZGSPGKEOIS8133-09-98 08:37:00 Test Item Value Reference Range Interpretation Comments Monocytes # (test code 0.5 See_Comment N [Aut omated message] The = Monocytes #) system which generated this result tra nsmitted reference range : <=0.8. The reference r patricio was not used to int erpret this result as normal/abnormal . [facility] SouthOlofotuYRWMPHHBZX3679-37-14 08:37:00 Test Item Value Reference Range Interpretation Comments Lymphocytes # (test code = Lymphocytes 0.8 1.0-5.5 L #) [facility] SouthOajifxmKNNHIGMMFQ4478-34-46 08:37:00 Test Item Value Reference Range Interpretation Comments Basophils (test code = 0.1 See_Comment N [Aut omated message] The Basophils) system which ge nerated this result tra nsmitted reference range : <=1.0. The reference r patricio was not used to int erpret this result as normal/abnormal . [facility] SouthQmjlolfJTOWDDNMTC4925-09-74 08:37:00 Test Item Value Reference Range Interpretation Comments Segs-Bands # (test code = Segs-Bands #) 7.2 1.5-8.1 N [facility] SouthAoxnkeoIRHYEQBIHA7609-64-45 08:37:00 Test Item Value Reference Range Interpretation Comments Segs (test code = Segs) 84.2 45.0-75.0 H [facility] SouthYvfptuyNBKBUYAGXT3431-86-45 08:37:00 Test Item Value Reference Range Interpretation Comments Lymphocytes (test code = Lymphocytes) 8.8 20.0-40.0 L [facility] SouthByicrjdMALDTHFXWJ1798-79-99 08:37:00 Test Item Value Reference Range Interpretation Comments Eosinophils (test code = 0.8 See_Comment N [A utomated message] The Eosinophils) system which ge nerated this result tra nsmitted reference range : <=4.0. The reference r patricio was not used to int erpret this result as normal/abnormal . [facility] SouthZcljyyhVHPWZIEKLY5915-34-31 08:37:00 Test Item Value Reference Range Interpretation Comments Monocytes (test code = Monocytes) 6.1 2.0-12.0 N [facility] SouthJrqehelKLTLRKUPCI4245-42-45 08:37:00 Test Item Value Reference Range Interpretation Comments Hct (test code = Hct) 30.4 36.0-48.0 L [facility] SouthVlxafbuBMZVOZLFAE5987-20-32 08:37:00 Test Item Value Reference Range Interpretation Comments MCHC (test code = MCHC) 32.7 32.0-36.0 N [facility] SouthEbmdqvmHEFZHTGZRV2409-80-98 08:37:00 Test Item Value Reference Range Interpretation Comments RDW (test code = RDW) 15.9 11.5-14.5 H [facility] SouthQoirnmzJXDPVVDFFY2891-58-38 08:37:00 Test Item Value Reference Range Interpretation Comments MCH (test code = MCH) 28.3 pg 27.0-31.0 N [facility] SouthWkkoxqeLCWWSUUHLE6005-78-01 08:37:00 Test Item Value Reference Range Interpretation Comments MCV (test code = MCV) 86.5 81.0-99.0 N [facility] SouthAinbiqyJTJFVMFDMG2067-35-16 08:37:00 Test Item Value Reference Range Interpretation Comments MPV (test code = MPV) 8.7 7.4-10.4 N [facility] SouthKhadbnrXPWTMCXPEY5747-95-50 08:37:00 Test Item Value Reference Range Interpretation Comments Platelet (test code = Platelet) 163 133-450 N [facility] SouthBoyqifsOIZAJWJDAQ6391-94-32 08:37:00 Test Item Value Reference Range Interpretation Comments WBC (test code = WBC) 8.6 3.7-10.4 N [facility] SouthXkesselQUZVODALOP3618-85-37 08:37:00 Test Item Value Reference Range Interpretation Comments Hgb (test code = Hgb) 10.0 12.0-16.0 L [facility] SouthEibkwfpDQQDAHRRKI8517-78-99 08:37:00 Test Item Value Reference Range Interpretation Comments RBC (test code = RBC) 3.52 4.20-5.40 L [facility]inteSrpnuudZQOEGTROS6505-96-36 08:37:00 Test Item Value Reference Range Interpretation Comments AGAP (test code = AGAP) 12.0 10.0-20.0 N [facility] PointeOqsorhkGHOCRGUXU8861-26-48 08:37:00 Test Item Value Reference Range Interpretation Comments B/C Ratio (test code = B/C Ratio) 13 6-25 N [facility] PointeTtmqxbsQPKHGARVZ4811-61-63 08:37:00 Test Item Value Reference Range Interpretation Comments Globulin (test code = Globulin) 2.3 2.0-4.0 N [facility] PointeDsfosixBQRGTDDJH6320-61-27 08:37:00 Test Item Value Reference Range Interpretation Comments A/G Ratio (test code = A/G Ratio) 1.3 0.7-1.6 N [facility]inteEghluisANZQPBPMY0533-02-88 08:37:00 Test Item Value Reference Range Interpretation Comments Alk Phos (test code = Alk Phos) 93 39-136 N [facility] PointeLwnwwaiNKDEJAIKV5458-08-46 08:37:00 Test Item Value Reference Range Interpretation Comments ALT (test code = ALT) 179 See_Comment H [Auto mated message] The system which ge nerated this result transmit lupe reference range : <=65. The reference range was not used to interpr et this result as mercedes l/abnormal. [facility] PointeXhptklkNXRREXUUJ0552-92-38 08:37:00 Test Item Value Reference Range Interpretation Comments Bili Total (test code = Bili Total) 0.5 0.2-1.3 N [facility] PointeNsypftdZOJAWITHF3810-93-80 08:37:00 Test Item Value Reference Range Interpretation Comments AST (test code = AST) 186 See_Comment H [Auto mated message] The system which ge nerated this result transmit lupe reference range : <=37. The reference range was not used to interpr et this result as mercedes l/abnormal. [facility] PointeTnrdnwxIJQQZBEOI2305-46-03 08:37:00 Test Item Value Reference Range Interpretation Comments Sodium Lvl (test code = Sodium Lvl) 141 135-145 N [facility] PointeMzbsaueXFNXEVWKU2792-68-84 08:37:00 Test Item Value Reference Range Interpretation Comments Creatinine Lvl (test code = Creatinine 0.6 0.5-1.4 N Lvl) [facility] PointeDfgmltyGFMHBYFCG8040-04-61 08:37:00 Test Item Value Reference Range Interpretation Comments Glucose Lvl (test code = Glucose Lvl) 78 70-99 N [facility] PointeKxzkferLVLGPVAJY5991-35-78 08:37:00 Test Item Value Reference Range Interpretation Comments BUN (test code = BUN) 8 7-22 N [facility] PointeTlsrybzPGYGMFRCC1655-98-89 08:37:00 Test Item Value Reference Range Interpretation Comments Total Protein (test code = Total 5.4 6.4-8.4 L Protein) [facility] PointeEkqqnkvNMDUGKBWH4620-25-92 08:37:00 Test Item Value Reference Range Interpretation Comments Albumin Lvl (test code = Albumin Lvl) 3.1 3.5-5.0 L [facility] PointeVvtyxntQQIOQBNLM7426-38-92 08:37:00 Test Item Value Reference Range Interpretation Comments Potassium Lvl (test code = Potassium 4.0 3.5-5.1 N Lvl) [facility] PointeGairexgFYIBSQCDC7002-49-78 08:37:00 Test Item Value Reference Range Interpretation Comments Calcium Lvl (test code = Calcium Lvl) 8.1 8.5-10.5 L [facility] PointeMludqgvOXYHEMMRB2353-85-05 08:37:00 Test Item Value Reference Range Interpretation Comments Chloride Lvl (test code = Chloride Lvl) 104 95-109 N [facility] PointeTrnpitjJFQYFASDI6581-49-92 08:37:00 Test Item Value Reference Range Interpretation Comments CO2 (test code = CO2) 29 24-32 N [facility] SouthOtxapyaSWOBHWRPUA1146-45-87 08:37:00 Test Item Value Reference Range Interpretation Comments Eosinophils # (test code 0.1 See_Comment N [A utomated message] The = Eosinophils #) system whic h generated this result tra nsmitted reference range : <=0.5. The reference r patricio was not used to int erpret this result as normal/abnormal . [facility] SouthLltpuqyRQSKSGLUSD6040-35-58 08:37:00 Test Item Value Reference Range Interpretation Comments Monocytes # (test code 0.5 See_Comment N [Aut omated message] The = Monocytes #) system which generated this result tra nsmitted reference range : <=0.8. The reference r patricio was not used to int erpret this result as normal/abnormal . [facility] SouthXyitvtbTETXIYXNNO5203-38-41 08:37:00 Test Item Value Reference Range Interpretation Comments Lymphocytes # (test code = Lymphocytes 0.8 1.0-5.5 L #) [facility] SouthMpdtkpgONKKVAANTS6562-38-52 08:37:00 Test Item Value Reference Range Interpretation Comments Basophils (test code = 0.1 See_Comment N [Aut omated message] The Basophils) system which ge nerated this result tra nsmitted reference range : <=1.0. The reference r patricio was not used to int erpret this result as normal/abnormal . [facility] SouthNgqqzfcSOAQJUGNNF2911-52-41 08:37:00 Test Item Value Reference Range Interpretation Comments Segs-Bands # (test code = Segs-Bands #) 7.2 1.5-8.1 N [facility] SouthDjkjihlAOVUNOABJT0837-76-94 08:37:00 Test Item Value Reference Range Interpretation Comments Segs (test code = Segs) 84.2 45.0-75.0 H [facility] SouthCyovpjxWHNDLVFSXC4341-59-22 08:37:00 Test Item Value Reference Range Interpretation Comments Lymphocytes (test code = Lymphocytes) 8.8 20.0-40.0 L [facility] SouthCpwidrfQRCITECFCQ1006-81-17 08:37:00 Test Item Value Reference Range Interpretation Comments Eosinophils (test code = 0.8 See_Comment N [A utomated message] The Eosinophils) system which ge nerated this result tra nsmitted reference range : <=4.0. The reference r patricio was not used to int erpret this result as normal/abnormal . [facility] SouthUgjghnxTVJWVTVSSF0516-27-02 08:37:00 Test Item Value Reference Range Interpretation Comments Monocytes (test code = Monocytes) 6.1 2.0-12.0 N [facility] SouthCmfcloeDZRZETNXMK5449-98-24 08:37:00 Test Item Value Reference Range Interpretation Comments Hct (test code = Hct) 30.4 36.0-48.0 L [facility] SouthAvunlzbORZAGYHROL4608-58-94 08:37:00 Test Item Value Reference Range Interpretation Comments MCHC (test code = MCHC) 32.7 32.0-36.0 N [facility] SouthMlgacjkIJVNZOLGZA3946-30-65 08:37:00 Test Item Value Reference Range Interpretation Comments RDW (test code = RDW) 15.9 11.5-14.5 H [facility] SouthIgloyktQYEUAICULN6988-52-69 08:37:00 Test Item Value Reference Range Interpretation Comments MCH (test code = MCH) 28.3 pg 27.0-31.0 N [facility] SouthYqrfuqdIPMZKPNCQM7461-07-66 08:37:00 Test Item Value Reference Range Interpretation Comments MCV (test code = MCV) 86.5 81.0-99.0 N [facility] SouthAvcrhxdJNPJLHAKNE6916-01-49 08:37:00 Test Item Value Reference Range Interpretation Comments MPV (test code = MPV) 8.7 7.4-10.4 N [facility] SouthHtywjkcODRYCEHEUI8244-31-39 08:37:00 Test Item Value Reference Range Interpretation Comments Platelet (test code = Platelet) 163 133-450 N [facility] SouthAchkjbuYNFSBEJJAP8694-20-06 08:37:00 Test Item Value Reference Range Interpretation Comments WBC (test code = WBC) 8.6 3.7-10.4 N [facility] SouthLykttwxIMKGHJKVYL6361-94-46 08:37:00 Test Item Value Reference Range Interpretation Comments Hgb (test code = Hgb) 10.0 12.0-16.0 L [facility] SouthZhmsltfAZULDPVIDP2058-50-30 08:37:00 Test Item Value Reference Range Interpretation Comments RBC (test code = RBC) 3.52 4.20-5.40 L [facility] SouthKoqecdwZVDNOYTCWJ6807-32-73 22:00:00 Test Item Value Reference Range Interpretation Comments MCH (test code = MCH) 28.1 pg 27.0-31.0 N [facility] EpkrgjcOOFSMGNWWY3950-44-44 22:00:00 Test Item Value Reference Range Interpretation Comments Platelet (test code = Platelet) 244 133-450 N [facility]HpjqlzyHVYWPKZVPG5084-73-17 22:00:00 Test Item Value Reference Range Interpretation Comments MPV (test code = MPV) 8.1 7.4-10.4 N [facility] GtywpavGZEKAGZBOJ2979-26-20 22:00:00 Test Item Value Reference Range Interpretation Comments Hgb (test code = Hgb) 12.3 12.0-16.0 N [facility] UrohfvcNVSBSMDPHE9291-01-38 22:00:00 Test Item Value Reference Range Interpretation Comments Hct (test code = Hct) 37.1 36.0-48.0 N [facility] SrakaxrLXXTUYGEQL4699-03-18 22:00:00 Test Item Value Reference Range Interpretation Comments WBC (test code = WBC) 8.4 3.7-10.4 N [facility] PnnvyptPZUFBTEQZS9879-72-55 22:00:00 Test Item Value Reference Range Interpretation Comments RBC (test code = RBC) 4.37 4.20-5.40 N [employer]LprmsmbTYSCPGDGIB6957-63-71 22:00:00 Test Item Value Reference Range Interpretation Comments MCV (test code = MCV) 84.8 81.0-99.0 N [facility] PjyfbmtTDMBAGKBRE0871-34-79 22:00:00 Test Item Value Reference Range Interpretation Comments HIV 1/2 Ab (test code Negative *NA*(08/24/2011 = HIV 1/2 Ab) 17:00:00) [employer] [id number] 22:00:00 Test Item Value Reference Range Interpretation Comments ABO/Rh (test code = ABO/Rh) O POS [employer] [id number] 22:00:00 Test Item Value Reference Range Interpretation Comments Antibody Scrn (test Negative (08/24/2011 N code = Antibody Scrn) 17:00:00) NDSS[employer] HoldingsRxzpibgRQNXZBEPN3725-67-01 22:00:00 Test Item Value Reference Range Interpretation Comments CO2 (test code = CO2) 29 24-32 N NDSSI HoldingsYibjzqaAJPTPYCKU4235-90-71 22:00:00 Test Item Value Reference Range Interpretation Comments Chloride Lvl (test code = Chloride Lvl) 104 95-109 N [facility]inteXryeqphRBHWKOJSW5898-70-80 22:00:00 Test Item Value Reference Range Interpretation Comments Sodium Lvl (test code = Sodium Lvl) 141 135-145 N [facility] PointeAfkdlrvQVAGCSRYY7804-07-43 22:00:00 Test Item Value Reference Range Interpretation Comments Potassium Lvl (test code = Potassium 4.3 3.5-5.1 N Lvl) [facility] PointeFdmkagoEYTUJRCPN8969-80-93 22:00:00 Test Item Value Reference Range Interpretation Comments Alk Phos (test code = Alk Phos) 79 39-136 N [facility] PointeIijurzdPNZOCCXIM4202-66-99 22:00:00 Test Item Value Reference Range Interpretation Comments Bili Total (test code = Bili Total) 0.3 0.2-1.3 N [facility] PointeDfujgnzNUXFWXVPJ7003-98-26 22:00:00 Test Item Value Reference Range Interpretation Comments Albumin Lvl (test code = Albumin Lvl) 3.9 3.5-5.0 N [facility] PointeWjmefzcDGPQMHTQC9135-32-20 22:00:00 Test Item Value Reference Range Interpretation Comments ALT (test code = ALT) 39 See_Comment N [Auto mated message] The system which ge nerated this result transmit lupe reference range : <=65. The reference range was not used to interpr et this result as mercedes l/abnormal. [facility] PointeVxxyizxRVWSPNTKV1360-22-42 22:00:00 Test Item Value Reference Range Interpretation Comments Calcium Lvl (test code = Calcium Lvl) 8.7 8.5-10.5 N [facility] PointeByhmxzfUVLARYSPB0626-21-25 22:00:00 Test Item Value Reference Range Interpretation Comments Total Protein (test code = Total 7.5 6.4-8.4 N Protein) [facility] PointeRxykybbEISAUAVPD3658-78-07 22:00:00 Test Item Value Reference Range Interpretation Comments BUN (test code = BUN) 14 7-22 N [facility] PointeAjwpnawJNWSVLCDN7714-99-05 22:00:00 Test Item Value Reference Range Interpretation Comments Glucose Lvl (test code = Glucose Lvl) 85 [facility] PointeJuveohpSCLWSJZYF4435-77-87 22:00:00 Test Item Value Reference Range Interpretation Comments Creatinine Lvl (test code = Creatinine 0.9 0.5-1.4 N Lvl) [facility] PointeZzgiwcyWBQLTIEVS3304-61-51 22:00:00 Test Item Value Reference Range Interpretation Comments AST (test code = AST) 27 See_Comment N [Auto mated message] The system which ge nerated this result transmit lupe reference range : <=37. The reference range was not used to interpr et this result as mercedes l/abnormal. [facility] PointeXhjovdeUGYLLVLJK5329-38-71 22:00:00 Test Item Value Reference Range Interpretation Comments Globulin (test code = Globulin) 3.6 2.0-4.0 N [facility] PointeExupczhQRTGDTBJE6785-14-10 22:00:00 Test Item Value Reference Range Interpretation Comments AGAP (test code = AGAP) 12.3 10.0-20.0 N [facility] PointeLzsxgavFHUCRNYIB5845-88-50 22:00:00 Test Item Value Reference Range Interpretation Comments B/C Ratio (test code = B/C Ratio) 16 6-25 N [facility] PointeOzrszbrOIQLVRHDW1863-18-99 22:00:00 Test Item Value Reference Range Interpretation Comments A/G Ratio (test code = A/G Ratio) 1.1 0.7-1.6 N [facility] SouthIpkytxiTONDFLZGNE2777-09-65 22:00:00 Test Item Value Reference Range Interpretation Comments Basophils # (test code 0.0 See_Comment N [Aut omated message] The = Basophils #) system which generated this result tra nsmitted reference range : <=0.2. The reference r patricio was not used to int erpret this result as normal/abnormal . [facility] SouthAqtxzntYKUOIMVPZY7264-48-35 22:00:00 Test Item Value Reference Range Interpretation Comments Basophils (test code = 0.5 See_Comment N [Aut omated message] The Basophils) system which ge nerated this result tra nsmitted reference range : <=1.0. The reference r patricio was not used to int erpret this result as normal/abnormal . [facility] SouthKtzmwrrCDWKKANCVA5387-24-01 22:00:00 Test Item Value Reference Range Interpretation Comments Segs-Bands # (test code = Segs-Bands #) 5.2 1.5-8.1 N [facility] SouthKfajydlDUJIBJXEQO9443-98-77 22:00:00 Test Item Value Reference Range Interpretation Comments Eosinophils (test code = 0.7 See_Comment N [A utomated message] The Eosinophils) system which ge nerated this result tra nsmitted reference range : <=4.0. The reference r patricio was not used to int erpret this result as normal/abnormal . [facility] SouthDdgezibEJZTTGYVEG5447-97-23 22:00:00 Test Item Value Reference Range Interpretation Comments Lymphocytes (test code = Lymphocytes) 30.8 20.0-40.0 N [facility] SouthYbiynruEOGBFFWVKT8079-58-64 22:00:00 Test Item Value Reference Range Interpretation Comments Monocytes (test code = Monocytes) 6.1 2.0-12.0 N [facility] SouthYzxpcvnDWRLPFXPCR6281-48-06 22:00:00 Test Item Value Reference Range Interpretation Comments Eosinophils # (test code 0.1 See_Comment N [A utomated message] The = Eosinophils #) system whic h generated this result tra nsmitted reference range : <=0.5. The reference r patricio was not used to int erpret this result as normal/abnormal . [facility] SouthYzcxspyARIPNBKRRI5727-76-69 22:00:00 Test Item Value Reference Range Interpretation Comments Monocytes # (test code 0.5 See_Comment N [Aut omated message] The = Monocytes #) system which generated this result tra nsmitted reference range : <=0.8. The reference r patricio was not used to int erpret this result as normal/abnormal . [facility] SouthEdebzcyNRWUANRHMN8337-39-48 22:00:00 Test Item Value Reference Range Interpretation Comments Lymphocytes # (test code = Lymphocytes 2.6 1.0-5.5 N #) [facility] SouthLhkqydcPRALPIAAFM9960-52-36 22:00:00 Test Item Value Reference Range Interpretation Comments Segs (test code = Segs) 61.9 45.0-75.0 N [facility] SouthPrtzqaoPAYZHLAWZF8884-38-53 22:00:00 Test Item Value Reference Range Interpretation Comments PTT (test code = PTT) 28.5 s 22.9-35.8 N [facility] SouthMfkzaafKJWPEVBUBZ7425-84-94 22:00:00 Test Item Value Reference Range Interpretation Comments PT (test code = PT) 12.3 s 12.0-14.7 N [facility] SouthBwckpdxEPOOPQBVIU2551-51-34 22:00:00 Test Item Value Reference Range Interpretation Comments INR (test code = INR) 0.91 0.85-1.17 N [facility] SouthLgtplbaYTPEKLJIDR3667-95-89 22:00:00 Test Item Value Reference Range Interpretation Comments RDW (test code = RDW) 15.9 11.5-14.5 H [facility] SouthCphydgqGIOBZFQIUI1318-35-97 22:00:00 Test Item Value Reference Range Interpretation Comments MCHC (test code = MCHC) 33.1 32.0-36.0 N [facility] SouthEwiyaksNEDQPTXUFB3650-49-62 22:00:00 Test Item Value Reference Range Interpretation Comments MCH (test code = MCH) 28.1 pg 27.0-31.0 N [facility] SouthChyzuauLGPTHEVVBL1939-54-37 22:00:00 Test Item Value Reference Range Interpretation Comments Platelet (test code = Platelet) 244 133-450 N [facility] SouthKhrajpkPBLQEOMNIY6694-73-21 22:00:00 Test Item Value Reference Range Interpretation Comments MPV (test code = MPV) 8.1 7.4-10.4 N [facility] SouthIqkelkxGHCSTUKSOR6088-21-76 22:00:00 Test Item Value Reference Range Interpretation Comments Hgb (test code = Hgb) 12.3 12.0-16.0 N [facility] SouthRmgwzbrSPXRNMCPPI3640-17-77 22:00:00 Test Item Value Reference Range Interpretation Comments Hct (test code = Hct) 37.1 36.0-48.0 N [facility] SouthYdwsmgqUGFWFPJDOW9423-50-67 22:00:00 Test Item Value Reference Range Interpretation Comments WBC (test code = WBC) 8.4 3.7-10.4 N [facility] SouthYbjourvAPHKRRBNYZ4358-87-33 22:00:00 Test Item Value Reference Range Interpretation Comments RBC (test code = RBC) 4.37 4.20-5.40 N [facility] SouthTcdrgwnWZYVVBHEWG0185-71-23 22:00:00 Test Item Value Reference Range Interpretation Comments MCV (test code = MCV) 84.8 81.0-99.0 N [facility]IziwvilNTIZEMOJPC6155-29-56 22:00:00 Test Item Value Reference Range Interpretation Comments HIV 1/2 Ab (test code Negative *NA*(08/24/2011 = HIV 1/2 Ab) 17:00:00) [facility] HospitalDecurate [facility] YTHMFBZ0136-77-99 22:00:00 Test Item Value Reference Range Interpretation Comments ABO/Rh (test code = ABO/Rh) O POS [facility] [employer] ZGKULYA0990-06-36 22:00:00 Test Item Value Reference Range Interpretation Comments Antibody Scrn (test Negative (08/24/2011 N code = Antibody Scrn) 17:00:00) [facility]woodBzktdciYXQCUMEUP2734-72-78 22:00:00 Test Item Value Reference Range Interpretation Comments CO2 (test code = CO2) 29 24-32 N [facility]woodFqrpnryZHTQGEHOK8046-63-80 22:00:00 Test Item Value Reference Range Interpretation Comments Chloride Lvl (test code = Chloride Lvl) 104 95-109 N [facility]woodLsqzerwGVBTTCWWT7571-38-96 22:00:00 Test Item Value Reference Range Interpretation Comments Sodium Lvl (test code = Sodium Lvl) 141 135-145 N [facility]woodSingcdzQJOFFGAQS2800-12-69 22:00:00 Test Item Value Reference Range Interpretation Comments Potassium Lvl (test code = Potassium 4.3 3.5-5.1 N Lvl) [facility]woodUqyvsduUZSGUBCYS0707-94-92 22:00:00 Test Item Value Reference Range Interpretation Comments Alk Phos (test code = Alk Phos) 79 39-136 N [facility] KingwoodUjoolcoDFFWLWKJG6267-91-30 22:00:00 Test Item Value Reference Range Interpretation Comments Bili Total (test code = Bili Total) 0.3 0.2-1.3 N [facility]woodErydwklOZVRPUZTP3839-76-83 22:00:00 Test Item Value Reference Range Interpretation Comments Albumin Lvl (test code = Albumin Lvl) 3.9 3.5-5.0 N [facility]woodEauuhahYXLYTJHLQ1110-67-70 22:00:00 Test Item Value Reference Range Interpretation Comments ALT (test code = ALT) 39 See_Comment N [Auto mated message] The system which ge nerated this result transmit lupe reference range : <=65. The reference range was not used to interpr et this result as mercedes l/abnormal. [facility]woodGbcdqjzMGLQRFBMG7216-58-57 22:00:00 Test Item Value Reference Range Interpretation Comments Calcium Lvl (test code = Calcium Lvl) 8.7 8.5-10.5 N [facility]woodLurrygnNRGPCIMXD6756-64-45 22:00:00 Test Item Value Reference Range Interpretation Comments Total Protein (test code = Total 7.5 6.4-8.4 N Protein) [facility]inteIyqsoykLCRHYDFUV6824-91-15 22:00:00 Test Item Value Reference Range Interpretation Comments BUN (test code = BUN) 14 7-22 N [facility] PointeWgkiwqoEPWWSLMHC3807-84-45 22:00:00 Test Item Value Reference Range Interpretation Comments Glucose Lvl (test code = Glucose Lvl) 85 [facility] PointeNvrojenIJKWJGJRL4315-26-02 22:00:00 Test Item Value Reference Range Interpretation Comments Creatinine Lvl (test code = Creatinine 0.9 0.5-1.4 N Lvl) [facility] PointeMlsvracXKWKLTRCC9408-36-19 22:00:00 Test Item Value Reference Range Interpretation Comments AST (test code = AST) 27 See_Comment N [Auto mated message] The system which ge nerated this result transmit lupe reference range : <=37. The reference range was not used to interpr et this result as mercedes l/abnormal. [facility] PointeCwfbrfzWXHGFKVGQ3167-77-68 22:00:00 Test Item Value Reference Range Interpretation Comments Globulin (test code = Globulin) 3.6 2.0-4.0 N [facility] PointeXfpyewwEZTLFPTUN8440-60-47 22:00:00 Test Item Value Reference Range Interpretation Comments AGAP (test code = AGAP) 12.3 10.0-20.0 N [facility] PointeMsdumlbVGLIQQRVO2921-16-95 22:00:00 Test Item Value Reference Range Interpretation Comments B/C Ratio (test code = B/C Ratio) 16 6-25 N [facility] PointeJhmaenjOEOWCKZHJ1062-97-94 22:00:00 Test Item Value Reference Range Interpretation Comments A/G Ratio (test code = A/G Ratio) 1.1 0.7-1.6 N [facility] SouthSxuvnssXFWDLIYTYI2800-06-01 22:00:00 Test Item Value Reference Range Interpretation Comments Basophils # (test code 0.0 See_Comment N [Aut omated message] The = Basophils #) system which generated this result tra nsmitted reference range : <=0.2. The reference r patricio was not used to int erpret this result as normal/abnormal . [facility] SouthPebgzopULVNDSNXMX2850-48-90 22:00:00 Test Item Value Reference Range Interpretation Comments Basophils (test code = 0.5 See_Comment N [Aut omated message] The Basophils) system which ge nerated this result tra nsmitted reference range : <=1.0. The reference r patricio was not used to int erpret this result as normal/abnormal . [facility] SouthEatwpwtHZNJTCZBMZ4735-11-32 22:00:00 Test Item Value Reference Range Interpretation Comments Segs-Bands # (test code = Segs-Bands #) 5.2 1.5-8.1 N [facility] SouthOxtyrfyJUFKCRNFNV1139-33-30 22:00:00 Test Item Value Reference Range Interpretation Comments Eosinophils (test code = 0.7 See_Comment N [A utomated message] The Eosinophils) system which ge nerated this result tra nsmitted reference range : <=4.0. The reference r patricio was not used to int erpret this result as normal/abnormal . [facility] SouthJgujnxePPGXKBLNVK1995-60-88 22:00:00 Test Item Value Reference Range Interpretation Comments Lymphocytes (test code = Lymphocytes) 30.8 20.0-40.0 N [facility] SouthGsyncxwOPWZQJFNVH6098-66-77 22:00:00 Test Item Value Reference Range Interpretation Comments Monocytes (test code = Monocytes) 6.1 2.0-12.0 N [facility] SouthSpiszpgWRHMBGQEUT0673-63-14 22:00:00 Test Item Value Reference Range Interpretation Comments Eosinophils # (test code 0.1 See_Comment N [A utomated message] The = Eosinophils #) system whic h generated this result tra nsmitted reference range : <=0.5. The reference r patricio was not used to int erpret this result as normal/abnormal . [facility] SouthAtceeufYLPYCDVCDB6685-11-21 22:00:00 Test Item Value Reference Range Interpretation Comments Monocytes # (test code 0.5 See_Comment N [Aut omated message] The = Monocytes #) system which generated this result tra nsmitted reference range : <=0.8. The reference r patricio was not used to int erpret this result as normal/abnormal . [facility] SouthQliscaxFLGWWQAAHL0265-63-19 22:00:00 Test Item Value Reference Range Interpretation Comments Lymphocytes # (test code = Lymphocytes 2.6 1.0-5.5 N #) [facility] SouthPuqybubRBXRCNKZOB2606-96-44 22:00:00 Test Item Value Reference Range Interpretation Comments Segs (test code = Segs) 61.9 45.0-75.0 N [facility] SouthUgyndqdNGQVSLQSGX1438-68-68 22:00:00 Test Item Value Reference Range Interpretation Comments PTT (test code = PTT) 28.5 s 22.9-35.8 N [facility] SouthDazbbvlYESYQCSWEJ0650-46-46 22:00:00 Test Item Value Reference Range Interpretation Comments PT (test code = PT) 12.3 s 12.0-14.7 N [facility] SouthDyezogyKWOXUUGNFW1915-37-65 22:00:00 Test Item Value Reference Range Interpretation Comments INR (test code = INR) 0.91 0.85-1.17 N [facility] SouthGhgajjkRZUIBHKFNW1852-77-30 22:00:00 Test Item Value Reference Range Interpretation Comments RDW (test code = RDW) 15.9 11.5-14.5 H [facility] SouthScgjujcTYDTJOWCFJ4663-09-82 22:00:00 Test Item Value Reference Range Interpretation Comments MCHC (test code = MCHC) 33.1 32.0-36.0 N [facility] SouthLprntomTCBGBLDAMQ0256-11-74 22:00:00 Test Item Value Reference Range Interpretation Comments MCH (test code = MCH) 28.1 pg 27.0-31.0 N [facility] SouthTnugfocPZGSGOXGJM2746-18-95 22:00:00 Test Item Value Reference Range Interpretation Comments Platelet (test code = Platelet) 244 133-450 N [facility] SouthHgmgfvnMDSHIQQPAQ1089-06-33 22:00:00 Test Item Value Reference Range Interpretation Comments MPV (test code = MPV) 8.1 7.4-10.4 N [facility] SouthUyqhiioZGWOABWFXB8822-92-84 22:00:00 Test Item Value Reference Range Interpretation Comments Hgb (test code = Hgb) 12.3 12.0-16.0 N [facility] SouthFrunzpuDXUVWDDOOW7153-97-02 22:00:00 Test Item Value Reference Range Interpretation Comments Hct (test code = Hct) 37.1 36.0-48.0 N [facility] SouthShrcbblDYOXLLNPTS8706-30-98 22:00:00 Test Item Value Reference Range Interpretation Comments WBC (test code = WBC) 8.4 3.7-10.4 N [facility] SouthZlvsjaiYUKEIHQOJI1274-49-24 22:00:00 Test Item Value Reference Range Interpretation Comments RBC (test code = RBC) 4.37 4.20-5.40 N [facility] UchjiruBPFBQFHNRP2571-28-91 22:00:00 Test Item Value Reference Range Interpretation Comments MCV (test code = MCV) 84.8 81.0-99.0 N [facility]woodKcjuvcjWGUWRJVRJZ5318-23-51 22:00:00 Test Item Value Reference Range Interpretation Comments HIV 1/2 Ab (test code Negative *NA*(08/24/2011 = HIV 1/2 Ab) 17:00:00) [facility] [employer] UTUGTEE9923-16-31 22:00:00 Test Item Value Reference Range Interpretation Comments ABO/Rh (test code = ABO/Rh) O POS [facility] [employer] ETQVNTP7689-89-21 22:00:00 Test Item Value Reference Range Interpretation Comments Antibody Scrn (test Negative (08/24/2011 N code = Antibody Scrn) 17:00:00) [facility] LwuzpfiSAPWDVBQL9467-76-50 22:00:00 Test Item Value Reference Range Interpretation Comments CO2 (test code = CO2) 29 24-32 N [facility] QuikrsjOZJCRNGPV4259-23-39 22:00:00 Test Item Value Reference Range Interpretation Comments Chloride Lvl (test code = Chloride Lvl) 104 95-109 N [facility] LzknaaaXXLKMQJTN1045-98-14 22:00:00 Test Item Value Reference Range Interpretation Comments Sodium Lvl (test code = Sodium Lvl) 141 135-145 N [facility] OlpbjqkYONBMJQXS7928-35-92 22:00:00 Test Item Value Reference Range Interpretation Comments Potassium Lvl (test code = Potassium 4.3 3.5-5.1 N Lvl) [facility] ZufhvrkAHSGEJCPN7412-33-72 22:00:00 Test Item Value Reference Range Interpretation Comments Alk Phos (test code = Alk Phos) 79 39-136 N [facility] MvtxdbjUMVLTDHKD9770-93-48 22:00:00 Test Item Value Reference Range Interpretation Comments Bili Total (test code = Bili Total) 0.3 0.2-1.3 N [facility] AdrznciHVOEPXMQF5155-11-11 22:00:00 Test Item Value Reference Range Interpretation Comments Albumin Lvl (test code = Albumin Lvl) 3.9 3.5-5.0 N [facility] MghaighNYXOLJSIE9188-57-33 22:00:00 Test Item Value Reference Range Interpretation Comments ALT (test code = ALT) 39 See_Comment N [Auto mated message] The system which ge nerated this result transmit lupe reference range : <=65. The reference range was not used to interpr et this result as mercedes l/abnormal. [facility]inteGxqghzxZOWTUVHZW3759-64-16 22:00:00 Test Item Value Reference Range Interpretation Comments Calcium Lvl (test code = Calcium Lvl) 8.7 8.5-10.5 N [facility] PointeKkqvjjzPYCDMKHSM5434-37-05 22:00:00 Test Item Value Reference Range Interpretation Comments Total Protein (test code = Total 7.5 6.4-8.4 N Protein) [facility] PointeNpqxqpzYKNYWYKWU5462-93-55 22:00:00 Test Item Value Reference Range Interpretation Comments BUN (test code = BUN) 14 7-22 N [facility] PointeGqcwizyVADTWRZEN9350-03-40 22:00:00 Test Item Value Reference Range Interpretation Comments Glucose Lvl (test code = Glucose Lvl) 85 [facility] PointeQyjwhmwIFSSKOUHP6055-34-19 22:00:00 Test Item Value Reference Range Interpretation Comments Creatinine Lvl (test code = Creatinine 0.9 0.5-1.4 N Lvl) [facility] PointeRdjjobqRHPXASGAL4174-54-77 22:00:00 Test Item Value Reference Range Interpretation Comments AST (test code = AST) 27 See_Comment N [Auto mated message] The system which ge nerated this result transmit lupe reference range : <=37. The reference range was not used to interpr et this result as mercedes l/abnormal. [facility] PointePyhzwtjLZEEDOPUC6629-65-13 22:00:00 Test Item Value Reference Range Interpretation Comments Globulin (test code = Globulin) 3.6 2.0-4.0 N [facility] PointeUimtrgjIGVLABMPA1858-08-50 22:00:00 Test Item Value Reference Range Interpretation Comments AGAP (test code = AGAP) 12.3 10.0-20.0 N [facility] PointeUukknyuBLNFAXTZV1365-65-97 22:00:00 Test Item Value Reference Range Interpretation Comments B/C Ratio (test code = B/C Ratio) 16 6-25 N [facility]KispvfsPLPIIVNHQ3266-30-77 22:00:00 Test Item Value Reference Range Interpretation Comments A/G Ratio (test code = A/G Ratio) 1.1 0.7-1.6 N [facility] SouthZbysmctSPFLFRONDM6210-01-29 22:00:00 Test Item Value Reference Range Interpretation Comments Basophils # (test code 0.0 See_Comment N [Aut omated message] The = Basophils #) system which generated this result tra nsmitted reference range : <=0.2. The reference r patricio was not used to int erpret this result as normal/abnormal . [facility] SouthVrhdewhEJAENDKGMD7714-77-11 22:00:00 Test Item Value Reference Range Interpretation Comments Basophils (test code = 0.5 See_Comment N [Aut omated message] The Basophils) system which ge nerated this result tra nsmitted reference range : <=1.0. The reference r patricio was not used to int erpret this result as normal/abnormal . [facility] SouthUzwwrtqDZVRIGAHZE4943-45-66 22:00:00 Test Item Value Reference Range Interpretation Comments Segs-Bands # (test code = Segs-Bands #) 5.2 1.5-8.1 N [facility] SouthRvqkvsnUCFVPTVSCR4559-45-94 22:00:00 Test Item Value Reference Range Interpretation Comments Eosinophils (test code = 0.7 See_Comment N [A utomated message] The Eosinophils) system which ge nerated this result tra nsmitted reference range : <=4.0. The reference r patricio was not used to int erpret this result as normal/abnormal . [facility] SouthKtbunkdOZYKECIMSV6065-37-72 22:00:00 Test Item Value Reference Range Interpretation Comments Lymphocytes (test code = Lymphocytes) 30.8 20.0-40.0 N [facility] SouthLezhpvrWGHSUTJVDV1199-33-64 22:00:00 Test Item Value Reference Range Interpretation Comments Monocytes (test code = Monocytes) 6.1 2.0-12.0 N [facility] SouthFjzumauCWIXKURIKW0053-32-16 22:00:00 Test Item Value Reference Range Interpretation Comments Eosinophils # (test code 0.1 See_Comment N [A utomated message] The = Eosinophils #) system whic h generated this result tra nsmitted reference range : <=0.5. The reference r patricio was not used to int erpret this result as normal/abnormal . [facility] SouthEwlmungIRFWTERNTY1280-54-30 22:00:00 Test Item Value Reference Range Interpretation Comments Monocytes # (test code 0.5 See_Comment N [Aut omated message] The = Monocytes #) system which generated this result tra nsmitted reference range : <=0.8. The reference r patricio was not used to int erpret this result as normal/abnormal . [facility] SouthIijqxonUMLNXKYGOE1800-53-12 22:00:00 Test Item Value Reference Range Interpretation Comments Lymphocytes # (test code = Lymphocytes 2.6 1.0-5.5 N #) [facility] SouthJjqmbnxDUUEZBXFGA6508-03-71 22:00:00 Test Item Value Reference Range Interpretation Comments Segs (test code = Segs) 61.9 45.0-75.0 N [facility] SouthDppyinzIMEXTSSOEA4979-74-31 22:00:00 Test Item Value Reference Range Interpretation Comments PTT (test code = PTT) 28.5 s 22.9-35.8 N [facility] SouthXmjkothKAICQAAALI7738-77-71 22:00:00 Test Item Value Reference Range Interpretation Comments PT (test code = PT) 12.3 s 12.0-14.7 N [facility] SouthBbtqtcnZCHMJXUAUT1118-70-01 22:00:00 Test Item Value Reference Range Interpretation Comments INR (test code = INR) 0.91 0.85-1.17 N [facility] SouthHqwotbdMTCODOPAWD0065-14-35 22:00:00 Test Item Value Reference Range Interpretation Comments RDW (test code = RDW) 15.9 11.5-14.5 H [facility] SouthHaytrmpURZHVQTOGQ9600-29-64 22:00:00 Test Item Value Reference Range Interpretation Comments MCHC (test code = MCHC) 33.1 32.0-36.0 N [facility]JpmaekkQQHMITGTEL2326-07-05 21:20:00 Test Item Value Reference Range Interpretation Comments UA Urobilinogen (test code *NA*(08/24/2011 0.1-1.0 = UA Urobilinogen) 16:20:00) [facility] HospitalAidedotSLRCVWAXNG7147-94-36 21:20:00 Test Item Value Reference Range Interpretation Comments UA Ketones (test code Negative mg/dL = UA Ketones) *NA*(08/24/2011 16:20:00) [facility]GsncfgiWLYLFZIYQJ4086-84-71 21:20:00 Test Item Value Reference Range Interpretation Comments UA Protein (test code Negative mg/dL N = UA Protein) (08/24/2011 16:20:00) [facility] HospitalUdtdmocMHWVWKMTTZ0751-07-87 21:20:00 Test Item Value Reference Range Interpretation Comments UA Glucose (test code Negative mg/dL = UA Glucose) *NA*(08/24/2011 16:20:00) [facility] HospitalIqmylxxUTBSZVHLOU0473-79-48 21:20:00 Test Item Value Reference Range Interpretation Comments UA Blood (test code = Negative (08/24/2011 N UA Blood) 16:20:00) [facility] HospitalCwtutauYEQJTLDMJO7047-60-43 21:20:00 Test Item Value Reference Range Interpretation Comments UA Bili (test code = Negative *NA*(08/24/2011 UA Bili) 16:20:00) [facility] HospitalIsbqodgASKIOCAZTY9522-48-12 21:20:00 Test Item Value Reference Range Interpretation Comments Micro? (test code = Not Indicated Micro?) *NA*(08/24/2011 16:20:00) [facility] HospitalYmfijffFRGNOPRMGM4043-25-30 21:20:00 Test Item Value Reference Range Interpretation Comments UA Turbidity (test code = Clear (08/24/2011 N UA Turbidity) 16:20:00) [facility] HospitalXohmftdSCPXXAEEUY0017-78-93 21:20:00 Test Item Value Reference Range Interpretation Comments UA Color (test code = Yellow *NA*(08/24/2011 UA Color) 16:20:00) [facility] HospitalAzuvgseWWVRMRIPZC3854-97-84 21:20:00 Test Item Value Reference Range Interpretation Comments UA pH (test code = UA pH) 6.5 5.0-8.0 N [facility] HospitalHuvfscdHIZCYUBZQP9081-92-42 21:20:00 Test Item Value Reference Range Interpretation Comments UA Spec Grav (test code = UA Spec Grav) 1.012 N [facility] HospitalSxephskFQUFIQSVAK4776-84-39 21:20:00 Test Item Value Reference Range Interpretation Comments UA Leuk Est (test Negative (08/24/2011 N code = UA Leuk Est) 16:20:00) [facility] HospitalEvfwitxVOYNQYIASG4080-40-86 21:20:00 Test Item Value Reference Range Interpretation Comments UA Nitrite (test code Negative (08/24/2011 N = UA Nitrite) 16:20:00) [facility] MarshallBkukfibBDNNAACNTJ8932-30-76 21:20:00 Test Item Value Reference Range Interpretation Comments UA Urobilinogen (test code *NA*(08/24/2011 0.1-1.0 = UA Urobilinogen) 16:20:00) [facility] HospitalDnbukahYYADSRJZYI8789-34-88 21:20:00 Test Item Value Reference Range Interpretation Comments UA Ketones (test code Negative mg/dL = UA Ketones) *NA*(08/24/2011 16:20:00) [facility] HospitalPelcukbMVRNSWOYHM7296-62-72 21:20:00 Test Item Value Reference Range Interpretation Comments UA Protein (test code Negative mg/dL N = UA Protein) (08/24/2011 16:20:00) [facility] HospitalUwuadycYXPOZHMLPN9207-16-21 21:20:00 Test Item Value Reference Range Interpretation Comments UA Glucose (test code Negative mg/dL = UA Glucose) *NA*(08/24/2011 16:20:00) [facility] HospitalUroezkoKXLPXRCWHS4013-96-78 21:20:00 Test Item Value Reference Range Interpretation Comments UA Blood (test code = Negative (08/24/2011 N UA Blood) 16:20:00) [facility] HospitalYckpqcmVCZRKUFGZG9812-71-08 21:20:00 Test Item Value Reference Range Interpretation Comments UA Bili (test code = Negative *NA*(08/24/2011 UA Bili) 16:20:00) [facility] HospitalNfmspmoFODRMSGPOQ0659-51-53 21:20:00 Test Item Value Reference Range Interpretation Comments Micro? (test code = Not Indicated Micro?) *NA*(08/24/2011 16:20:00) [facility] HospitalTnxgqfzKOPPTTWSPI1357-58-55 21:20:00 Test Item Value Reference Range Interpretation Comments UA Turbidity (test code = Clear (08/24/2011 N UA Turbidity) 16:20:00) [facility] HospitalKzdrdgkTXLCEUPGGX6130-09-76 21:20:00 Test Item Value Reference Range Interpretation Comments UA Color (test code = Yellow *NA*(08/24/2011 UA Color) 16:20:00) [facility] HospitalRotzzcwOPFUDNFMOZ9505-69-44 21:20:00 Test Item Value Reference Range Interpretation Comments UA pH (test code = UA pH) 6.5 5.0-8.0 N [facility] MarshallLhktxtuXXVEYYJOKC9510-65-48 21:20:00 Test Item Value Reference Range Interpretation Comments UA Spec Grav (test code = UA Spec Grav) 1.012 N [facility] HospitalBtgkoeeVKVIPIMAEY9295-03-87 21:20:00 Test Item Value Reference Range Interpretation Comments UA Leuk Est (test Negative (08/24/2011 N code = UA Leuk Est) 16:20:00) [facility] HospitalCdmvjirUGIIBLSIEN9436-60-64 21:20:00 Test Item Value Reference Range Interpretation Comments UA Nitrite (test code Negative (08/24/2011 N = UA Nitrite) 16:20:00) [facility] HospitalVgayxdbUJINMERDLX3095-68-77 21:20:00 Test Item Value Reference Range Interpretation Comments UA Urobilinogen (test code *NA*(08/24/2011 0.1-1.0 = UA Urobilinogen) 16:20:00) [facility] HospitalOjcqfqfZPDDFMTDYB4480-66-95 21:20:00 Test Item Value Reference Range Interpretation Comments UA Ketones (test code Negative mg/dL = UA Ketones) *NA*(08/24/2011 16:20:00) [facility] HospitalMkyvokoXQBSEIWDDA5550-42-24 21:20:00 Test Item Value Reference Range Interpretation Comments UA Protein (test code Negative mg/dL N = UA Protein) (08/24/2011 16:20:00) [facility] HospitalFapnthuVLKZBTMKBU0046-39-37 21:20:00 Test Item Value Reference Range Interpretation Comments UA Glucose (test code Negative mg/dL = UA Glucose) *NA*(08/24/2011 16:20:00) [facility] HospitalEauzvlpLRZTGMSDET9393-04-39 21:20:00 Test Item Value Reference Range Interpretation Comments UA Blood (test code = Negative (08/24/2011 N UA Blood) 16:20:00) [facility] HospitalCjylekoKVYZFEGLGE3987-78-70 21:20:00 Test Item Value Reference Range Interpretation Comments UA Bili (test code = Negative *NA*(08/24/2011 UA Bili) 16:20:00) [facility] HospitalCnjeyodZRQDFFBGSZ8787-54-50 21:20:00 Test Item Value Reference Range Interpretation Comments Micro? (test code = Not Indicated Micro?) *NA*(08/24/2011 16:20:00) [facility] HospitalIylcxckPYTBAVLTRW4975-87-75 21:20:00 Test Item Value Reference Range Interpretation Comments UA Turbidity (test code = Clear (08/24/2011 N UA Turbidity) 16:20:00) [facility] HospitalFnxbhzqUHRKGIDYAX7482-30-88 21:20:00 Test Item Value Reference Range Interpretation Comments UA Color (test code = Yellow *NA*(08/24/2011 UA Color) 16:20:00) [facility] HospitalVwfkrhkSMHTSDQVLO0577-82-73 21:20:00 Test Item Value Reference Range Interpretation Comments UA pH (test code = UA pH) 6.5 5.0-8.0 N [facility] HospitalQsaixtpZNKOTUQLLN9892-19-27 21:20:00 Test Item Value Reference Range Interpretation Comments UA Spec Grav (test code = UA Spec Grav) 1.012 N [facility] HospitalNsjiqttALTAEAGGIZ7144-89-03 21:20:00 Test Item Value Reference Range Interpretation Comments UA Leuk Est (test Negative (08/24/2011 N code = UA Leuk Est) 16:20:00) [facility] HospitalKagzrewWCIVJBDOFE0875-49-71 21:20:00 Test Item Value Reference Range Interpretation Comments UA Nitrite (test code Negative (08/24/2011 N = UA Nitrite) 16:20:00) [facility]
[2022-08-15 13:07] LABS: Hematocrit 28.9 % (36.0-45.0); Lymphocytes % 15.4 % (15.3-44.8); MCV 86.6 fL (80-100); MPV 7.7 fL (7.6-11.3); RBC Red Blood Cell Count 3.34 M/uL (3.86-4.86)
[2022-08-15] MEDS ORDERED: HYDROMORPHONE HCL 0.5 MG/0.5 ML INJ ONE (13:14)
[2022-08-15 13:21] LABS: Albumin 3.1 g/dL (3.4-5.0); Bilirubin Total 0.5 mg/dL (0.2-1.0)
[2022-08-15 14:31] VITALS: TEMP 98.3
[2022-08-15 14:32] VITALS: BP 117/81; O2SAT 97
--- NOTE | 2022-08-31 15:06 | EDPHYS ---
Physician Documentation [facility] Name: Lucrecia Vargas Age: 62 yrs Sex: Female : 1960 Arrival Date: 08/15/2022 Time: 12:28 Bed 19 Private MD: Elliot Hdz V ED Physician Yann Jacobs HPI: 08/15 13:34 This 62 yrs old Female presents to ER via Wheelchair with complaints of Pain All Over. ms3 13:34 62-year-old female with past medical history of GERD, chronic pain, depression, ms3 endometriosis, hip prosthesis, rheumatoid arthritis presents for generalized pain, inability to tolerate p.o., and weight loss. Patient states her orthopedic surgeon is Alan Lock and Dr Garland is her neurosurgeon. Patient states her physicians are at [facility].. Historical: - Allergies: 12:41 No Known Allergies; ss - PMHx: 12:41 acid reflux; Chronic pain; Depression; Endometriosis; Hip prosthetic dislocation; ss Hypertension; Rheumatoid Arthritis; Shoulder pain - bilateral; Sjogren's Syndrome; - PSHx: 12:41 hip replacement; back surgery; ss - Immunization history:: Adult Immunizations up to date. - Social history:: Smoking status: unknown. ROS: 13:34 Constitutional: Negative for fever, and chills. Neck: Negative for injury, pain, and ms3 swelling, Cardiovascular: Negative for chest pain, and palpitations. Respiratory: Negative for shortness of breath, cough, wheezing, and pleuritic chest pain, Abdomen/GI: Negative for abdominal pain, nausea, vomiting, diarrhea, and constipation. 13:34 MS/extremity: Positive for Generalized pain. 13:34 All other systems are negative. Exam: 13:34 Constitutional: This is a well developed, well nourished patient who is awake, alert, ms3 and in no acute distress. Head/Face: Normocephalic, atraumatic. Neck: Trachea midline, no cervical lymphadenopathy. Supple, full range of motion without nuchal rigidity, or vertebral point tenderness. No Meningismus. Chest/axilla: Normal chest wall appearance and motion. Nontender with no deformity. Cardiovascular: Regular rate and rhythm with a normal S1 and S2. No gallops, murmurs, or rubs. Normal PMI, no JVD. No pulse deficits. Respiratory: Lungs have equal breath sounds bilaterally, clear to auscultation and percussion. No rales, rhonchi or wheezes noted. No increased work of breathing, no retractions or nasal flaring. Abdomen/GI: Soft, non-tender, with normal bowel sounds. No distension or tympany. No guarding or rebound. No evidence of tenderness throughout. Skin: Warm, dry with normal turgor. Normal color with no rashes, no lesions, and no evidence of cellulitis. MS/ Extremity: Pulses equal, no cyanosis. Neurovascular intact. Full, normal range of motion. PICC line in right arm Vital Signs: 12:38 BP 132 / 91; Pulse 78; Resp 18; Temp 98.3(O); Pulse Ox 100% ; ss 14:05 BP 117 / 81; Pulse 82; Resp 18; Pulse Ox 97% on R/A; ll1 MDM: 12:43 Patient medically screened. ms3 13:34 Differential Diagnosis Anemia versus renal insufficiency versus rhabdo. Data reviewed: ms3 vital signs, nurses notes, lab test result(s). 08/15 12:44 Order name: CBC with Diff; Complete Time: 13:33 ms3 08/15 12:44 Order name: CMP; Complete Time: 13:33 ms3 08/15 12:44 Order name: CK; Complete Time: 13:33 ms3 Administered Medications: 13:19 Drug: HYDROmorphone IVP 0.5 mg {Note: RASS 0, pain 7/10.} Route: IVP; Site: PICC; [facility] 14:26 Follow up: Response: No adverse reaction; Pain is decreased; RASS: Alert and Calm (0) ll1 Disposition Summary: 08/15/22 13:57 Discharge Ordered Location: Home ms3 Condition: Stable ms3 Diagnosis - Anemia, unspecified ms3 - TPN dependent ms3 - Abnormal weight loss ms3 - Muscle weakness (generalized) ms3 Followup: ms3 - With: Elliot Hdz MD - When: 2 - 3 days - Reason: Recheck today's complaints Discharge Instructions: - Discharge Summary Sheet ms3 - Anemia ms3 Forms: - Medication Reconciliation Form ms3 - Thank You Letter ms3 - Antibiotic Education ms3 - Prescription Opioid Use ms3 Signatures: Dispatcher [employer] EDMS Karrie Martinez, KELSEY RN ss Annmarie Sifuentes RN RN ll1 Yann Jacobs DO DO ms3 Corrections: (The following items were deleted from the chart) 12:45 12:44 Urine Microscopic+U.LAB.BRZ ordered. EDMS EDMS 14:26 12:44 Urine Dipstick-Ancillary ordered. ms3 ll1
--- NOTE | 2022-08-31 15:06 | ER ---
Nurse's Notes [facility] Name: Lucrecia Vargas Age: 62 yrs Sex: Female : 1960 Arrival Date: 08/15/2022 Time: 12:28 Bed 19 Private MD: Elliot Hdz V Diagnosis: Anemia, unspecified;TPN dependent;Abnormal weight loss;Muscle weakness (generalized) Presentation: 08/15 12:38 Chief complaint: Patient states: "I had back surgery on July 11 and I was ss discharged from [facility] on Saturday without a G tube and unable to take my pain medications. I'm hurting and withering away and Dr. Hdz told me to come here to I can get transferred to [facility]. I'm supposed to have a swallow study today.". Coronavirus screen: Client denies travel out of the [place] in the last 14 days. Ebola Screen: Patient denies exposure to infectious person. Patient denies travel to an Ebola-affected area in the 21 days before illness onset. Initial Sepsis Screen: Does the patient meet any 2 criteria? No. Patient's initial sepsis screen is negative. Does the patient have a suspected source of infection? No. Patient's initial sepsis screen is negative. Risk Assessment: Do you want to hurt yourself or someone else? Patient reports no desire to harm self or others. Onset of symptoms is unknown. 12:38 Method Of Arrival: Wheelchair ss 12:38 Acuity: ROSARIO 3 ss Triage Assessment: 14:26 General: Appears uncomfortable, Behavior is calm, cooperative, appropriate for age. ll1 Pain: Complains of pain in all over Quality of pain is described as aching. Historical: - Allergies: 12:41 No Known Allergies; ss - PMHx: 12:41 acid reflux; Chronic pain; Depression; Endometriosis; Hip prosthetic dislocation; ss Hypertension; Rheumatoid Arthritis; Shoulder pain - bilateral; Sjogren's Syndrome; - PSHx: 12:41 hip replacement; back surgery; ss - Immunization history:: Adult Immunizations up to date. - Social history:: Smoking status: unknown. Screenin:04 [facility] ED Fall Risk Assessment (Adult) Impaired Gait Yes (1 pt) Mobility Assist ll1 Device Used Yes (1 pt) Score/Fall Risk Level 0 - 2 = Low Risk Oriented to surroundings, Maintained a safe environment, Educated pt \\T\\ family on fall prevention, incl call for assistance when getting out of bed, Hourly rounding (assess needs \\T\\ fall precautionary measures) done. Abuse screen: Denies threats or abuse. Nutritional screening: Tuberculosis screening: No symptoms or risk factors identified. Assessment: 12:38 Reassessment: No changes from previously documented assessment. Dr. Chopra at . ll1 13:04 Reassessment: No changes from previously documented assessment. Patient and/or family ll1 updated on plan of care and expected duration. Pain level reassessed. Patient is alert, oriented x 3, equal unlabored respirations, skin warm/dry/pink. 13:45 Reassessment: No changes from previously documented assessment. Dr. Chopra at . ll1 14:05 Reassessment: No changes from previously documented assessment. Patient and/or family ll1 updated on plan of care and expected duration. Pain level reassessed. Patient is alert, oriented x 3, equal unlabored respirations, skin warm/dry/pink. 14:26 Reassessment: No changes from previously documented assessment. Patient and/or family ll1 updated on plan of care and expected duration. Pain level reassessed. Patient is alert, oriented x 3, equal unlabored respirations, skin warm/dry/pink. Vital Signs: 12:38 BP 132 / 91; Pulse 78; Resp 18; Temp 98.3(O); Pulse Ox 100% ; ss 14:05 BP 117 / 81; Pulse 82; Resp 18; Pulse Ox 97% on R/A; ll1 ED Course: 12:28 Patient arrived in ED. mr 12:28 Elliot Hdz MD is Private Physician. mr 12:29 Yann Chopra DO is Attending Physician. ms3 12:32 Arm band placed on Patient placed in an exam room, on a stretcher. ss 12:39 Annmarie Sifuentes, KELSEY is Primary Nurse. ll1 12:40 Triage completed. ss 13:05 Patient has correct armband on for positive identification. Bed in low position. Call ll1 light in reach. Side rails up X2. Client placed on continuous cardiac and pulse oximetry monitoring. NIBP monitoring applied. 13:56 Elliot Hdz MD is Referral Physician. ms3 14:27 No provider procedures requiring assistance completed. Patient did not have IV access ll1 during this emergency room visit. Administered Medications: 13:19 Drug: HYDROmorphone IVP 0.5 mg {Note: RASS 0, pain 7/10.} Route: IVP; Site: PICC; 1 14:26 Follow up: Response: No adverse reaction; Pain is decreased; RASS: Alert and Calm (0) 1 Medication: 13:05 VIS not applicable for this client. 1 Outcome: 13:57 Discharge ordered by . ms3 14:27 Discharged to home via wheelchair. 1 14:27 Condition: stable 14:27 Discharge instructions given to patient, friend, Instructed on discharge instructions, follow up and referral plans. Demonstrated understanding of instructions, follow-up care. 14:27 Patient left the ED. 1 Signatures: Wendie Rivera Shelby, RN RN Annmarie Mathis RN RN 1 Yann Chopra, DO ms3
== END 2022-08-15 14:27 | disposition home or self-care (01) ==
LOC: ER 12:27
DX: D64.9 Anemia, unspecified (principal); M62.81 Muscle weakness (generalized); R63.4 Abnormal weight loss; Z99.89 Dependence on other enabling machines and devices; G89.29 Other chronic pain; I10 Essential (primary) hypertension
CPT/HCPCS: 85025; 36415; 82550; 80053; 96374; 99283; J1170